=== PATIENT | female | born 1940 | race Caucasian/White ===

== ENCOUNTER 2021-04-25 09:08 | Outpatient (REF) | payer MEDICARE, SELFPAY ==
[2021-04-25 10:29] LABS: Hematocrit 41.3 % (37.0-47.0); Hemoglobin 13.4 g/dl (12.0-16.0); Mean Corpuscular HGB Conc 32.4 g/dl (31.0-35.0); Mean Corpuscular Hemoglobin 29.5 pg (27.0-33.0); Mean Corpuscular Volume 90.8 fL (80.0-98.0); Platelet Count 248 X10*3/uL (160-400); Red Blood Count 4.55 X10*6/uL (4.20-5.50); Red Cell Distribution Width 12.7 % (11.0-16.0)
[2021-04-25 11:04] LABS: Alanine Aminotransferase 20 U/L (0-31); Alkaline Phosphatase 89 U/L (39-117); Anion Gap 12 (12-20); Aspartate Amino Transferase 22 U/L (5-31); Bilirubin Direct 0.2 mg/dL (0.0-0.5); Bilirubin Total 0.6 mg/dL (0.0-1.0); Blood Urea Nitrogen 8 mg/dL (9-16); Calcium 9.1 mg/dL (8.4-10.2); Carbon Dioxide 28 mmol/L (22-29); Chloride 107 mmol/L (96-108); Cholesterol 186 mg/dL; Estimated Glomerular Filt Rate 57; Glucose Random 110 mg/dL (60-115); HDL Cholesterol 45 mg/dL; LDL Cholesterol Calculated 103 mg/dl; Potassium 4.4 mmol/L (3.3-5.1); Sodium 143 mmol/L (135-145); Total Protein 6.4 g/dL (6.5-8.0); Triglycerides 192 mg/dL
[2021-04-29 13:01] LABS: Vitamin D 25-OH, D2 <4 ng/mL; Vitamin D 25-OH, D3 45 ng/mL; Vitamin D 25-OH, Total 45 ng/mL (30-100)
== END 2021-04-25 09:09 | disposition home or self-care (01) ==
LOC: HO.LAB 09:08
PROVIDERS: PCP Internal Medicine; Visit Provider Internal Medicine
DX: F41.1 Generalized anxiety disorder (principal); E78.00 Pure hypercholesterolemia, unspecified
CPT/HCPCS: 36415; 80048; 80061; 80076; 82306; 84443; 85027

== ENCOUNTER 2021-09-29 10:58 | Outpatient (REF) | payer MEDICARE, SELFPAY ==
--- NOTE | ~2021-09-29 | US_ITS ---
EXAMINATION: US VENOUS ULTRASOUND WITH DOPPLER LOWER EXTREMITY, LEFT CLINICAL INFORMATION: Edema. COMPARISON: None TECHNIQUE: Ultrasound of the deep veins is performed from the hip to the calf with compression sonography and color and pulse Doppler assessment. Spectral analysis with color-flow imaging is performed. FINDINGS: There is normal venous compression and respiratory variation and augmented flow. The visualized common femoral vein, superficial femoral vein, profunda femoral vein, popliteal vein, and the trifurcation region shows no evidence of deep venous thrombosis. There is a small Diaz's cyst measuring 2.9 x 1.1 x 2.0 cm. The fluid tracks along the posterior calf questioning possible rupture. If the patient's symptoms persist, followup ultrasound in 5 days 7 days might be of value to exclude proximal propagation from a non-visualized calf vein. US/US venous duplex LE LT IMPRESSION: No DVT demonstrated in the left lower extremity. Diaz's cyst cyst with fluid tracking along the posterior calf questioning ruptured Diaz's cyst.
== END 2021-09-29 10:59 | disposition home or self-care (01) ==
LOC: HO.US 10:58
PROVIDERS: PCP Internal Medicine; Visit Provider Internal Medicine
DX: I82.402 Acute embolism and thrombosis of unspecified deep veins of left lower extremity (principal)
CPT/HCPCS: 93971

== ENCOUNTER 2022-08-08 09:13 | Outpatient (REF) | payer MEDICARE, SELFPAY ==
[2022-08-08 09:32] LABS: MANUAL DIFF FLAG NO
[2022-08-08 10:08] LABS: Basophils Percent Auto 0.5 % (0-2); Eosinophils Absolute Auto 0.1 X10*3/uL (0.0-0.4); Eosinophils Percent Auto 1.2 % (0-4); Hematocrit 40.2 % (37.0-47.0); Hemoglobin 13.1 g/dl (12.0-16.0); Imm Gran Abs Auto 0.02 X10*3/uL (0.00-0.03); Imm Gran Pct Auto 0.2 % (0.0-0.4); Lymphocytes Absolute Auto 2.4 X10*3/uL (1.2-4.9); Lymphocytes Percent Auto 29.7 % (20-40); Mean Corpuscular HGB Conc 32.6 g/dl (31.0-35.0); Mean Corpuscular Hemoglobin 29.3 pg (27.0-33.0); Mean Corpuscular Volume 89.9 fL (80.0-98.0); Mean Platelet Volume 10.1 fL (9.4-12.3); Monocytes Absolute Auto 0.7 X10*3/uL (0.1-1.2); Monocytes Percent Auto 9.1 % (2-11); Neutrophils Absolute Auto 4.8 x10*3/uL (2.0-8.3); Neutrophils Percent Auto 59.3 % (45-73); Platelet Count 239 X10*3/uL (160-400); Red Blood Count 4.47 X10*6/uL (4.20-5.50); Red Cell Distribution Width 12.7 % (11.0-16.0); White Blood Count 8.1 X10*3/uL (4.8-10.8)
[2022-08-08 10:50] LABS: Anion Gap 12 (12-20); Blood Urea Nitrogen 15 mg/dL (9-16); Calcium 9.3 mg/dL (8.4-10.2); Carbon Dioxide 30 mmol/L (22-29); Chloride 106 mmol/L (96-108); Estimated Glomerular Filt Rate 56; Glucose Random 105 mg/dL (60-115); Potassium 4.5 mmol/L (3.3-5.1); Sodium 143 mmol/L (135-145)
== END 2022-08-08 09:14 | disposition home or self-care (01) ==
LOC: HO.LAB 09:13
PROVIDERS: PCP Internal Medicine; Visit Provider Internal Medicine
DX: I35.0 Nonrheumatic aortic (valve) stenosis (principal)
CPT/HCPCS: 36415; 80048; 85025; 85610

== ENCOUNTER 2023-04-26 09:35 | Outpatient (AMB) | payer MEDICARE, SELFPAY ==
--- NOTE | 2023-04-26 09:53 | A.OFFPC_ITS ---
Vital Signs 04/26/23 09:58 Height 5 ft 2 in Weight 154 lb 2 oz BMI 28.2 BP 124/70 Blood Pressure Location Lt brachial Position Sitting Pulse 83 Pulse Source Pulse Oximeter Pulse Oximetry (%) 97 Oxygen Delivery Method Room Air Intake Visit Reasons: Memory loss Intake Note: Patient is here to follow up on memory loss and requesting for memory testing. 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 Accompanied by: Son Allergies penicillin V Allergy (Unknown, Verified 04/29/23 13:36) Unknown Penicillins Allergy (Unknown, Verified 04/29/23 13:36) Unknown Eggs/Apples/Oats Allergy (Unknown, Uncoded 04/29/23 13:36) stomach ache Medication List - Last Reconciled 04/29/23 by Jerman Mendoza MD aspirin (Adult Low Dose Aspirin) 81 mg PO DAILY Bystolic (nebivolol) 10 mg PO DAILY NS clonazepam (Klonopin) 0.5 mg PO Q8H levothyroxine 75 mcg PO DAILY nortriptyline 50 mg PO DAILY olmesartan-hydrochlorothiazide 40-12.5 mg (Benicar HCT) 1 tab PO DAILY simvastatin 40 mg PO DAILY Tobacco use date assessed: 04/26/23 Fall risk assessment: No Falls in past year Last assessed Fall Risk: 04/26/23 Dental Screening Dental Screen Date: 04/26/23 Did you have a dental visit in the last 12 months?: No Did you have a dental problem in the last 6 months where you did not have access to dental care?: No Was dental information given to patient?: No HPI Memory loss HPI Details 82-year-old female [facility]. She is accompanied by her son. Son is reporting patient is beginning to have short-term memory loss. He has to repeat the same thing again and again on phone conversations. Patient seems to forget who she had met in the morning etc. Patient is able to drive and has never lost her way home. 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 She is writing checks in an appropriate manner. Patient is dressing up and going to the groceries with no difficulty. She is able to cook independently. She is able to use the kitchen in the house independently. The son lives a few blocks away and he has noticed nothing amiss in the clinic in his of the house. Her personal hygiene is good. [facility] Medical History Generalized anxiety disorder Hypercholesterolemia Nonrheumatic aortic (valve) stenosis Surgical History History of colonoscopy Family History Mother No problems noted. Father No problems noted. Social History (Reviewed 04/26/23 @ 09:53 by Charlette Stephen [facility]) Housing: House Alcohol intake: never Patient Tobacco Use Status: Never used Tobacco e-Cigarette/Vaping Use: Never Used Second Hand Smoke Exposure: No service: No Current occupational status: retired Cognitive needs: No Hearing needs: No Vision needs: Yes (glasses) Questionnaire Thrive Questionnaire Date Thrive assessed: 10/26/22 SONIDO-7 AMB Questionnaire SONIDO-7 Date SONIDO - 7 assessed: 10/26/22 Source: Developed by Drs. Wes Lenz, Jennifer Adhikari, Hung Bhatt and colleagues, with an educational vicenta from [employer]. Physical exam (Primary Care) Vital Signs: Last Vital Signs Pulse 83 04/26/23 09:58 BP 124/70 04/26/23 09:58 Pulse Ox 97 04/26/23 09:58 Oxygen Delivery Method Room Air 04/26/23 09:58 \ Care Plan Goal for BP management: Blood pressure is in range. Continue current medications. BMI result Body Mass Index 28.2 Tobacco/Smoking Status: Tobacco use Status Tobacco use date assessed 04/26/23 04/26/23 10:23 Patient Tobacco Use Status Never used Tobacco 04/26/23 09:54 e-Cigarette/Vaping Use Never Used 04/26/23 09:54 Thrive Assessment: Date of Thrive Assessment Date Thrive assessed 10/26/22 04/26/23 09:54 Advance Care Planning discussion: Exists, not on file Date of discussion: 04/26/23 Forms completed: MOLST Time spent: 1-15 minutes, not on file Actual minutes spent: 5 Const General: cooperative and healthy appearing Nutritional Appearance: well nourished Orientation/consciousness: patient oriented x3 Limitations: no limitations HENMT Head: Yes normal to inspection Eyes General: appearance normal, both eyes and all related structures Neck Neck: Yes normal visual inspection Chest Chest palpation & inspection: normal palpation of entire chest wall Resp Effort & Inspection: normal respiratory effort Neuro General: patient oriented x3 Assessment and Plan Assessment & Plan (1) Dementia: Code(s): F03.90 - Unspecified dementia, unspecified severity, without behavioral disturbance, psychotic disturbance, mood disturbance, and anxiety Plan: Patient is beginning to show short-term memory loss which is an early sign of dementia. She could not do the recall test in the office. However she is functionally independent and able to do her activities independently. I encouraged them to continue current medications and keep her blood pressure in range. Coding Level of Care Code Est Pt Level 4 (67857) Diagnoses Dementia F03.90 Additional Codes Vital Signs *Quality* - Advance Care Planning discussion: Exists, not on file ([id number]) Vital Signs *Quality* - Time spent: 1-15 minutes, not on file ([id number])
[2023-04-26 09:58] VITALS: BP 124/70; PULSE 83; O2SAT 97; BMI 28.2
== END 2023-04-26 12:49 | disposition home or self-care (01) ==
PROVIDERS: PCP Internal Medicine; Visit Provider Internal Medicine
DX: F03.90 Unspecified dementia, unspecified severity, without behavioral disturbance, psychotic disturbance, mood disturbance, and anxiety (principal); Z00.00 Encounter for general adult medical examination without abnormal findings
CPT/HCPCS: 1124F; 99214

== ENCOUNTER 2023-08-22 13:27 | Outpatient (AMB) | payer MEDICARE, SELFPAY ==
[2023-08-22 13:31] VITALS: BP 140/76; PULSE 99; O2SAT 98; BMI 25.4
--- NOTE | 2023-08-22 13:31 | A.OFFPC_ITS ---
Vital Signs 08/22/23 13:31 Height 5 ft 2 in Weight 63.049 kg BMI 25.4 BP 140/76 H Blood Pressure Location Rt brachial Position Sitting Pulse 99 Pulse Source Pulse Oximeter Pulse Oximetry (%) 98 Oxygen Delivery Method Room Air Intake Visit Reasons: HDF Fl Kemi/Gallbladder removal Intake Note: Patient is here for hospital discharge follow up. 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 Allergies penicillin V Allergy (Unknown, Verified 08/22/23 13:36) Unknown Penicillins Allergy (Unknown, Verified 08/22/23 13:36) Unknown Eggs/Apples/Oats Allergy (Unknown, Uncoded 08/22/23 13:36) stomach ache Tobacco use date assessed: 08/22/23 Fall risk assessment: No Falls in past year Last assessed Fall Risk: 08/22/23 HPI HPI Comments History of Present Illness Details 83 year old female with history of sever e (hesitant to undergo TAVR but has been recommended), CAD, htn, hld with multiple recent admissions to [facility] presents to the office today with her daughter, Jo Ann with whom she resides, for hospital discharge follow up. Discharge medications reviewed and reconciled. Initially presented and admitted end of May with acute cholecystitis managed with cholecystectomy tube given intraoperative risk. Readmitted 06/28- with Cdiff and possible acute diverticulitis, and again 07/10 - w/ choledocholithiasis and possible pancreatitis s/p ERCP, course complicated by ongoing Cdiff and occlusive 5 cm thrombus of paired posterior tibial veins and ruptured mcknight cyst.?She was discharged at this time on Eliquis and continued on oral vancomycin therapy for C. difficile infection.?Most recently was admitted to [facility] from 07/23-07/25 due to active UGIB from duodenal ulcer. She was initially admitted to ICU for intubation for airway protection and EGD. Ulcer was cauterized and patient was successfully extubated. She required 3 units PRBC for stabilization of H/H. She did develop an episode of chest pain that resolved with nitro and cardiology was consulted. Echo on 07/24 showed hyperdynamic LV systolic function wtih EF 65-70% but no obvious wall m otion abnormality, likely type 2 NC per cardiology. Eliquis was held during admission with recommendation for repeat venous duplex in 2 weeks to assess for extension of DVt into popliteal circulation. She was discharged on BID PPI x 5 days and then advised to continue PPI x 6 weeks. She was evaluated by PT recommending STR. Pt has been discharged to [facility] and then back home with VNA in place for PT/OT. While in STR, venous duplex was repeated 08/08 showing new occlusive thrombus measuring >6cm in the rihgt peroneal vein and new/residual thrombus >5cm involving both the paired posterior tibial veins with a 5.4cm mcknight's cyst. She was restarted on eliquis at 2.5mg BID. She also continues on ppi BID per daughter's report. H/H stable. Pt's daughter reports ongoing cognitive decline with worsening mood disorder. She is not engaging in activities and cries often. Denies SI. Very anxious with worsening ST memory loss. Reports rapid progression with recent recurrent hospitalizations per her daughter. Currently taking nortriptyline which is also for chronic pain. Very poor appetite. [facility] Medical History Nonrheumatic aortic (valve) stenosis Generalized anxiety disorder Hypercholesterolemia Surgical History History of colonoscopy Family History Mother No problems noted. Father No problems noted. Social History Housing: House Alcohol intake: never Patient Tobacco Use Status: Never used Tobacco e-Cigarette/Vaping Use: Never Used Second Hand Smoke Exposure: No service: No Current occupational status: retired Cognitive needs: No Hearing needs: No Vision needs: Yes (glasses) Questionnaire Thrive Questionnaire Date Thrive assessed: 08/22/23 AUDIT C Alcohol Use Questionnaire (AUDIT-C) 1. How often do you have a drink containing alcohol?: Never Total Score: 0 SONIDO-7 AMB Questionnaire SONIDO-7 Date SONIDO - 7 assessed: 10/26/22 Source: Developed by Drs. Wes Lenz, Jennifer Adhikari, Hung Bhatt and colleagues, with an educational vicenta from [employer]. Review of Systems Const Details: General: No fevers, malaise, unintentional weight loss Cardiovascular: No chest pain, palpitations, or leg edema Respiratory: No shortness of breath, wheezing, cough GI: No abdominal pain, nausea, vomiting, diarrhea, constipation, melena, hematochezia : No dysuria, hematuria, increased urinary frequency, decreased urinary output MSK: No myalgia, back pain Neuro: No headaches, weakness, paresthesias Psych: +depression, +anxiety. No SI Skin: No rashes or lesions Physical exam (Primary Care) Vital Signs: Last Vital Signs Pulse 99 08/22/23 13:31 BP 140/76 H 08/22/23 13:31 Pulse Ox 98 08/22/23 13:31 Oxygen Delivery Method Room Air 08/22/23 13:31 BMI result Body Mass Index 25.4 Tobacco/Smoking Status: Tobacco use Status Tobacco use date assessed 08/22/23 08/22/23 13:34 Patient Tobacco Use Status Never used Tobacco 08/22/23 13:34 e-Cigarette/Vaping Use Never Used 08/22/23 13:34 Thrive Assessment: Date of Thrive Assessment Date Thrive assessed 08/22/23 08/22/23 13:34 Const Other: Constitutional - Awake and Alert, No apparent distress Eyes - PERRLA Cardiovascular - S1S2, RRR, V/ systolic ejection murmur, No edema Respiratory - Normal lung expansion, Normal respiratory effort, No respiratory distress, CTA bilaterally Gastrointestinal - NT / ND; +BS; No rebound or guarding Extremities - no calf tenderness bilaterally, no swelling Skin - Warm/Dry Neurological - Alert & oriented x3 Psychological - depressed mood, tearful, flat affect Results Reviewed Results Reviewed: cbc, bmp, venous duplex x2, echo, trop, cardiology consult, discharge summary, surgery office note Assessment and Plan Assessment & Plan (1) Dementia: Code(s): F03.90 - Unspecified dementia, unspecified severity, without behavioral disturbance, psychotic disturbance, mood disturbance, and anxiety Qualifiers: Dementia behavioral or psychological symptom: with mood disturbance Plan: progressively worsening with recurrent hospital admissions with worsening depression, anxious, anhedonia, and and failure to thrive. Recommended contacting insurance company to find psychiatric providers specializing in geriatric psychiatry. She is also referred to neurology for further evaluation and management. Will trial mirtazepine to help with mood and appetite, has lost nearly 12 pounds since last office visit. Advised to take 7.5mg nightly x 2 weeks, if no improvement increase to 2 tabs nightly. Educated on side effects of medications. Continue nortriptyline. Follow up with PCP soon. (2) UGIB (upper gastrointestinal bleed): Code(s): K92.2 - Gastrointestinal hemorrhage, unspecified Plan: Due to duodenal ulcer. H/H has remained stable since eliquis resumed. Advised to decrease pantoprazole to 40mg daily per [facility] GI recommendations. Pt family would prefer to follow with [facility]. Referral placed. (3) C. difficile colitis: Code(s): A04.72 - Enterocolitis due to Clostridium difficile, not specified as recurrent Plan: Resolved. Complete PO vanco. (4) Cholecystitis: Code(s): K81.9 - Cholecystitis, unspecified Plan: s/p cholecystectomy tube. Good output. NO abd pain, tolerating diet. Family would prefer to follow with [facility]. Consult placed. Continue following with [facility] surgery - not a candidate for cholecystectomy due to cardiac comorbidities. Orders: Orders Basic Metabolic Panel 08/22/23 E53.8 - Deficiency of other specified B group vitamins, I10 - Essential (primary) hypertension Magnesium 08/22/23 I10 - Essential (primary) hypertension, Z51.81 - Encounter for therapeutic drug level monitoring Vitamin B12 08/22/23 E53.8 - Deficiency of other specified B group vitamins, Z51.81 - Encounter for therapeutic drug level monitoring Referrals Neurology Referral F03.90 - Unspecified dementia, unspecified severity, without behavioral disturbance, psychotic disturbance, mood disturbance, and anxiety Gastroenterology Referral K92.2 - Gastrointestinal hemorrhage, unspecified Medications: New mirtazapine Take 1 tab nightly at bedtime. Can increase to 2 tabs nightly in 1-2 weeks if symptoms of depression persist 7.5 mg PO DAILY 60 tabs 0RF apixaban (Eliquis) 2.5 mg PO BID 180 tabs 0RF Changed From pantoprazole 40 mg PO BID 30 days 60 tabs 0RF To pantoprazole 40 mg PO DAILY 30 days 30 tabs 0RF Coding Level of Care Code Tele Est Pt Level 5 (26267) Diagnoses Dementia F03.90 Dementia behavioral or psychological symptom: with mood disturbance UGIB (upper gastrointestinal bleed) K92.2 C. difficile colitis A04.72 Cholecystitis K81.9 Time Spent (min) 50 Comment time spent reviewing above, with pt/dtr, documentation time
== END 2023-08-22 14:19 | disposition home or self-care (01) ==
PROVIDERS: PCP Internal Medicine; Visit Provider Physician Assistant
DX: K81.9 Cholecystitis, unspecified (principal); K92.2 Gastrointestinal hemorrhage, unspecified; F03.90 Unspecified dementia, unspecified severity, without behavioral disturbance, psychotic disturbance, mood disturbance, and anxiety; A04.72 Enterocolitis due to Clostridium difficile, not specified as recurrent
CPT/HCPCS: 99215

== ENCOUNTER 2023-09-06 10:13 | Inpatient (IN) | payer MEDICARE, SELFPAY ==
--- NOTE | ~2023-09-06 | CT_ITS ---
EXAMINATION: CT ABDOMEN AND PELVIS WITH CONTRAST CLINICAL INFORMATION: Diarrhea and abdominal pain. COMPARISON: None available. TECHNIQUE: Multidetector volumetric images were obtained from the superior aspect of the liver through the pubic symphysis following administration 85 mL of Omnipaque 350 intravenous contrast. Sagittal and coronal reformatted images were obtained on the technologist's workstation. Oral contrast: No This CT examination was performed using dose optimization techniques as appropriate, variously including the following: *Automated exposure control *Adjustment of mA and/or kV according to patient size (this includes techniques or standardized protocols for targeted exams where dose is matched to indication/reason for exam; i.e. extremities or head) *Use of iterative reconstruction technique DLP: 426 mGy-cm FINDINGS: LUNG BASES: There is bibasilar atelectasis. Heart size is normal. There is mitral annular dense calcification. LIVER, GALLBLADDER, AND BILIARY TREE: The liver is normal in size, shape, and attenuation. No focal hepatic lesion or biliary ductal dilatation is present. There is a percutaneous placed cholecystostomy tube in a dilated gallbladder. There is punctate gas visualized in the intrahepatic fissure. PANCREAS: Unremarkable. SPLEEN: Unremarkable. ADRENAL GLANDS: Unremarkable. KIDNEYS AND URETERS: The kidneys are normal in size with a lobulated shape with scarring upper pole left kidney. There are multiple left renal cyst. The largest partially exophytic lower pole measures 3.8 cm wide. There is rim shaped 1.0 cm calcification adjacent to cortical scar in upper pole left kidney. An exophytic cyst upper pole measures 1.2 cm. There are tiny cysts in the upper pole right kidney. No perinephric stranding. No hydronephrosis or obstructive calculi. BLADDER: Unremarkable. GASTROINTESTINAL TRACT: There is a scattered stool, gas and diffuse mural thickening and pericolic fat stranding involving the entire descending, transverse and ascending colon consistent with diffuse colitis likely inflammatory or infectious etiology. There is no pericolic abscess or free air. The small bowel loops are normal caliber. Appendix is not visualized. The stomach is nondistended and appears unremarkable. ABDOMINAL WALL: A small hiatal hernia is noted. LYMPH NODES: Normal. VASCULAR: Unremarkable. PELVIC VISCERA: The uterus is anteverted and appears unremarkable. There is no free air or free fluid. No abnormal pelvic or inguinal lymph nodes seen. OSSEOUS STRUCTURES: Mild degenerative disc changes L2 3-4 disc level is noted. No aggressive lytic or sclerotic process. CT/CT abdomen pelvis w IV con IMPRESSION: 1. Diffuse colitis involving the entire colon likely inflammatory or infectious etiology. There is no pericolic abscess or free air. 2. There is a percutaneous placed cholecystostomy tube in a dilated gallbladder. There is punctate gas in the intrahepatic fissure. 3. Small hiatal hernia. Fleischner guidelines were followed.
[2023-09-06 10:36] VITALS: BP 145/72; PULSE 128; RESP 16; TEMP 36.4; O2SAT 98; BMI 25.0
--- NOTE | 2023-09-06 10:55 | PC.NURSE ---
corn grinder made aware of pt's HR 120's. IV established, labs drawn/sent. Awaiting bed in ED.
[2023-09-06 11:00] LABS: MANUAL DIFF FLAG NO
[2023-09-06] MEDS: 0.9 % Sodium Chloride 1,000 ML 999 ML IV (11:00)
[2023-09-06 11:08] LABS: Basophils Absolute Auto 0.1 X10*3/uL (0.0-0.2); Basophils Percent Auto 0.4 % (0-2); Eosinophils Absolute Auto 0.2 X10*3/uL (0.0-0.4); Eosinophils Percent Auto 0.8 % (0-4); Hematocrit 41.6 % (37.0-47.0); Hemoglobin 13.5 g/dl (12.0-16.0); Imm Gran Abs Auto 0.12 X10*3/uL (0.00-0.03); Imm Gran Pct Auto 0.6 % (0.0-0.4); Lymphocytes Absolute Auto 1.8 X10*3/uL (1.2-4.9); Lymphocytes Percent Auto 8.5 % (20-40); Mean Corpuscular HGB Conc 32.5 g/dl (31.0-35.0); Mean Corpuscular Hemoglobin 27.8 pg (27.0-33.0); Mean Corpuscular Volume 85.6 fL (80.0-98.0); Mean Platelet Volume 9.9 fL (9.4-12.3); Monocytes Absolute Auto 1.3 X10*3/uL (0.1-1.2); Monocytes Percent Auto 6.4 % (2-11); Neutrophils Absolute Auto 17.1 x10*3/uL (2.0-8.3); Neutrophils Percent Auto 83.3 % (45-73); Platelet Count 283 X10*3/uL (160-400); Red Blood Count 4.86 X10*6/uL (4.20-5.50); Red Cell Distribution Width 14.7 % (11.0-16.0); White Blood Count 20.6 X10*3/uL (4.8-10.8)
[2023-09-06 11:17] LABS: Lactic Acid 1.7 mmol/L (0.5-2.0)
[2023-09-06 11:21] LABS: Alanine Aminotransferase 14 U/L (0-31); Albumin Level 3.8 g/dL (3.5-5.0); Alkaline Phosphatase 104 U/L (39-117); Anion Gap 16 (12-20); Aspartate Amino Transferase 17 U/L (5-31); Bilirubin Direct 0.4 mg/dL (0.0-0.5); Bilirubin Total 1.2 mg/dL (0.0-1.0); Blood Urea Nitrogen 8 mg/dL (9-16); Calcium 9.4 mg/dL (8.4-10.2); Carbon Dioxide 24 mmol/L (22-29); Chloride 102 mmol/L (96-108); Creatinine Clr Calc Pharmacy 49.4; Estimated Glomerular Filt Rate > 60; Glucose Random 144 mg/dL (60-115); Lipase 8 U/L (8-78); Sodium 139 mmol/L (135-145); Total Protein 7.2 g/dL (6.5-8.0)
--- NOTE | 2023-09-06 11:37 | ED_ITS ---
HPI - Nausea/Vomiting/Diarrhea General Chief complaint: Nausea/Vomiting/Diarrhea Stated complaint: diarrhea Time Seen by Provider: 09/06/23 11:25 Source: patient, family and old records reviewed Mode of arrival: ambulatory Limitations: other (dementia) History of Present Illness HPI Narrative: 83 yo female with PMH of mild dementia, HTN, anxiety, HLD, severe aortic stenosis, just had prolonged intermittent stays at [facility] in May to July due to choledocholithiasis/ pancreatitis and acute cholecystitis s/p ERCP and biliary drain. June found to have DVT on eliquis then treated for c diff with oral vancomycin. Presented in July for UGIB requiring 3 units PRBC found to have duodenal ulcer that was cauterized. Had type 2 NSTEMI. At this time the patient presents here with acute onset diffuse diarrhea and incontinence that started last night with some intermittent abdominal cramps. No fevers, no vomiting. Feels just like when she had c. diff. Was seen by urgent care on 08/12 and they started her on clindamycin for one week due to tooth infection... her tooth infection has resolved. MD elicited complaint: diarrhea and abdominal pain Pertinent past history: other (c diff colitis) Onset (ago): day(s) (last night) Associated nausea: No Associated abdominal pain: Yes Location of pain: diffuse Pain consistency: intermittent Severity: mild Quality: cramping Exacerbating factors: eating Relieving factors: none Context: other (hx of c diff, clindamycin starting 08/12) Associated symptoms: loss of appetite, malaise and weakness Related Data Home Medications Medication Instructions Recorded Confirmed aspirin 81 mg tablet,delayed 81 mg PO DAILY 04/28/21 11/08/22 release (Adult Low Dose Aspirin) olmesartan 40 1 tab PO DAILY 10/20/21 11/08/22 mg-hydrochlorothiazide 12.5 mg tablet (Benicar HCT) Previous Rx's Medication Instructions Recorded clonazepam 0.5 mg tablet (Klonopin) 0.5 mg PO Q8H #90 tabs 09/08/22 simvastatin 40 mg tablet 40 mg PO DAILY #90 tabs 05/24/23 levothyroxine 75 mcg tablet 75 mcg PO DAILY #90 tabs 06/02/23 nortriptyline 50 mg capsule 50 mg PO DAILY #90 caps 07/10/23 atorvastatin 80 mg tablet 80 mg PO BEDTIME #30 tabs 08/15/23 metoprolol succinate 50 mg 50 mg PO DAILY #30 tabs 08/15/23 tablet,extended release 24 hr apixaban 2.5 mg tablet (Eliquis) 2.5 mg PO BID #180 tabs 08/22/23 mirtazapine 7.5 mg tablet 7.5 mg PO DAILY #60 tabs 08/22/23 pantoprazole 40 mg tablet,delayed 40 mg PO DAILY 30 days #30 tabs 08/29/23 release Allergies Allergy/AdvReac Type Severity Reaction Status Date / Time penicillin V Allergy Unknown Unknown Verified 09/06/23 10:35 Penicillins Allergy Unknown Unknown Verified 09/06/23 10:35 Eggs/Apples/Oats Allergy Unknown stomach Uncoded 08/22/23 13:36 ache Review of Systems 2 Review of Systems: Constitutional : No Weight loss, No Fever, No Chills ENT/Mouth : No sore throat, No Rhinorrhea Eyes: No Swelling, No Redness Cardiovascular : No Chest Pain, No SOB, NoEdema Respiratory : No Cough, No Sputum, No Wheezing Gastrointestinal : no Nausea, no Vomiting, positive Diarrhea, positive abdominal Pain, No Hematochezia, No Melena Genitourinary : No Dysuria, No Urinary Frequency, No Hematuria, No Urgency Musculoskeletal : No joint pain, No Myalgias, No Joint Swelling Skin : No Skin Lesions, No rash Neuro : No Weakness, No Numbness, No Dizziness, No Headache Psych : No Anxiety/Panic, No Depression Heme/Lymph: No Bruising, No Lymphadenopathy Endocrine : No Polyuria, No Polydipsia All other systems reviewed and are negative. Gastrointestinal: Gastrointestinal: Denies nausea PMFSH Past Medical History Attestation statement: The following information was validated with the patient. Source: old records reviewed Medical History Nonrheumatic aortic (valve) stenosis Generalized anxiety disorder Hypercholesterolemia Surgical History History of colonoscopy Family History Family History Mother No problems noted. Father No problems noted. Social History Social History Housing: House Alcohol intake: never Patient Tobacco Use Status: Never used Tobacco Smoked in Last 30 Days: No e-Cigarette/Vaping Use: Never Used Second Hand Smoke Exposure: No Use of substances other than those prescribed or required for medical reasons: No Advance Directives: No Advance Directives Information Provided: Yes service: No Current occupational status: retired Cognitive needs: No Hearing needs: No Vision needs: Yes (glasses) Physical Exam 2 Vital Signs: Vital Signs: Last Vital Signs Temp 99.6 F 09/06/23 12:00 Pulse 112 H 09/06/23 12:00 Resp 18 09/06/23 12:00 BP 144/70 H 09/06/23 12:00 Pulse Ox 96 09/06/23 12:00 O2 Del Method Room Air 09/06/23 12:00 BMI result Body Mass Index 25.0 Appearance: Alert. confused but able to answer some questions about her history. No acute distress. Eyes: Pupils equal, round and reactive to light. ENT: Pharynx normal. Neck: Normal inspection. Neck supple. CVS: Normal heart rate and rhythm. Pulses normal. Respiratory: No respiratory distress. Breath sounds normal. Abdomen: Soft and nontender mild distention drain noted and appearance of bile but no purulence Skin: Skin warm and dry. Normal skin color. Normal skin turgor. Extremities: No lower extremity edema. No calf ttp Neuro: confused No motor deficit. No sensory deficit. Medications Administered Discontinued Medications Generic Name Dose Route Start Last Admin Trade Name Qamarq PRN Reason Stop Dose Admin Acetaminophen 650 mg 09/06/23 12:56 09/06/23 13:07 Acetaminophen 325 Mg Tablet PO 09/06/23 12:57 Not Given ONCE ONE Fidaxomicin 200 mg 09/06/23 11:27 09/06/23 12:30 Fidaxomicin 200 Mg Tablet PO 09/06/23 11:28 200 mg ONCE ONE Administration Sodium Chloride 1,000 mls @ 999 mls/hr 09/06/23 11:00 09/06/23 12:31 Ns IV 09/06/23 12:00 Infused .Q1H1M ORTIZ Infusion Potassium Chloride 10 meq in 100 mls @ 100 mls/hr 09/06/23 11:30 09/06/23 15:01 Potassium Chloride/H20 IV 09/06/23 15:29 Not Given Q1H ORTIZ Iohexol 85 ml 09/06/23 14:04 09/06/23 14:05 Iohexol 350 Mg/Ml 75 Ml Infus..Btl IV 09/06/23 14:05 85 ml ONCE ONE Administration Potassium Chloride 40 meq 09/06/23 14:59 09/06/23 15:07 Potassium Chloride Packet 20 Meq Packet PO 09/06/23 15:00 40 meq ONCE ONE Administration Medical Decision Making Medical Decision Making MDM Narrative: 83 yo female with PMH of mild dementia, HTN, anxiety, HLD, severe aortic stenosis, recent UGIB requiring cauterization of duodenal ulcer along with 3 units PRBC, c diff colitis in June, DVT on low dose eliquis, NSTEMI due to demand here with c/o abdominal cramps and diffuse diarrhea with recent clindamycin use for dental issue. At this time given WBC count, repeat presumed c diff, hypokalemia will start on fluids and fidaxomicin. CT scan ordered to check for ileus and megacolon. Likely admit Differential Diagnosis Differential Diagnoses: The differential diagnosis associated with the presentation includes colitis Admission/Observation Consideration of admission/observation: Escalation of care including admission/observation considered plan to admit given labs and pancolitis Consult Healthcare Provider Management of the patient was discussed with: Hospitalist (will admit) Lab Data [facility] Lab Attestation statement: I reviewed the patient's lab results. 09/06/23 10:52 09/06/23 10:52 Labs: Lab Results 09/06/23 Range/Units 10:52 WBC 20.6 H (4.8-10.8) X10*3/uL RBC 4.86 D (4.20-5.50) X10*6/uL Hgb 13.5 D (12.0-16.0) g/dl Hct 41.6 D (37.0-47.0) % MCV 85.6 (80.0-98.0) fL MCH 27.8 (27.0-33.0) pg MCHC 32.5 (31.0-35.0) g/dl RDW 14.7 (11.0-16.0) % Plt Count 283 (160-400) X10*3/uL MPV 9.9 (9.4-12.3) fL Immature Gran % (Auto) 0.6 H (0.0-0.4) % Neut % (Auto) 83.3 H (45-73) % Lymph % (Auto) 8.5 L (20-40) % [place] % (Auto) 6.4 (2-11) % Eos % (Auto) 0.8 (0-4) % Baso % (Auto) 0.4 (0-2) % Lymph # (Auto) 1.8 (1.2-4.9) X10*3/uL [place] # (Auto) 1.3 H (0.1-1.2) X10*3/uL Eos # (Auto) 0.2 (0.0-0.4) X10*3/uL Baso # (Auto) 0.1 (0.0-0.2) X10*3/uL Abs Immat Gran (auto) 0.12 H (0.00-0.03) X10*3/uL Absolute Neuts (auto) 17.1 H (2.0-8.3) x10*3/uL Absolute Nucleated RBC 0.000 (0.0-0.012) X10*3/uL Nucleated RBC % (auto) 0.0 (0.0-0.2) /100WBC Sodium 139 (135-145) mmol/L Potassium 3.0 L (3.3-5.1) mmol/L Chloride 102 (96-108) mmol/L Carbon Dioxide 24 (22-29) mmol/L Anion Gap 16 (12-20) BUN 8 L (9-16) mg/dL Creatinine 0.76 (0.5-1.4) mg/dL Estim Creat Clear Calc 49.4 Estimated GFR > 60 Random Glucose 144 H (60-115) mg/dL Lactic Acid 1.7 (0.5-2.0) mmol/L Calcium 9.4 (8.4-10.2) mg/dL Total Bilirubin 1.2 H (0.0-1.0) mg/dL Direct Bilirubin 0.4 (0.0-0.5) mg/dL AST 17 (5-31) U/L ALT 14 (0-31) U/L Alkaline Phosphatase 104 (39-117) U/L Total Protein 7.2 (6.5-8.0) g/dL Albumin 3.8 (3.5-5.0) g/dL Lipase 8 (8-78) U/L Independent Interpretation I performed an independent interpretation of an: CT Scan (pancolitis) Radiology Impression Discussion of test interpretation with radiology: I have reviewed the radiologist's reading. Independent Historian Clinical information obtained from an independent historian. History obtained from or confirmed by: Other (family) External Record Review External record reviewed: Office record and Outpatient record Discharge Plan Discharge Clinical Impression: Acute hypokalemia, Pancolitis Elevated WBC count Qualifiers: Leukocytosis type: unspecified Qualified Code(s): D72.829 - Elevated white blood cell count, unspecified Patient Disposition: Admitted As Inpatient Prescriptions: No Action simvastatin 40 mg tablet 40 mg PO DAILY Qty: 90 1RF levothyroxine 75 mcg tablet 75 mcg PO DAILY Qty: 90 1RF nortriptyline 50 mg capsule 50 mg PO DAILY Qty: 90 1RF metoprolol succinate 50 mg tablet extended release 24 hr 50 mg PO DAILY Qty: 30 0RF atorvastatin 80 mg tablet 80 mg PO BEDTIME Qty: 30 0RF pantoprazole 40 mg tablet,delayed release (DR/EC) 40 mg PO DAILY 30 Days Qty: 30 0RF aspirin [Adult Low Dose Aspirin] 81 mg tablet,delayed release (DR/EC) 81 mg PO DAILY clonazepam [Klonopin] 0.5 mg tablet 0.5 mg PO Q8H Qty: 90 0RF olmesartan-hydrochlorothiazide [Benicar HCT] 40-12.5 mg tablet 1 tab PO DAILY mirtazapine 7.5 mg tablet 7.5 mg PO DAILY Qty: 60 0RF Rx Instructions: Take 1 tab nightly at bedtime. Can increase to 2 tabs nightly in 1-2 weeks if symptoms of depression persist Eliquis 2.5 mg tablet 2.5 mg PO BID Qty: 180 0RF
[2023-09-06 12:00] VITALS: BP 144/70; PULSE 112; RESP 18; TEMP 37.6; O2SAT 96
[2023-09-06] MEDS: Potassium Chloride/H20 10 MEQ/100 ML PIGGYBACK 100 MEQ IV (12:07)
[2023-09-06] MEDS: Fidaxomicin 200 MG TABLET PO (12:30)
--- NOTE | 2023-09-06 13:33 | PC.NURSE ---
Pt to CT; Disconnected from IV K+ infusion.
[2023-09-06] MEDS: iohexoL 350 MG/ML 75 ML INFUS..BTL 85 ML IV (14:05)
[2023-09-06] MEDS: Potassium Chloride Packet 20 MEQ PACKET 40 MEQ PO (15:07)
--- NOTE | 2023-09-06 16:42 | P.HPHOSP_ITS ---
History of Present Illness Date of Service: 09/06/23 Chief Complaint: Abdominal pain, diarrhea An 83 years old lady with PMH of dementia, HTN, anxiety, severe , biliary drain for hx cholecystitis, Hx C.diff DVT on eliquis who presents to the hospital with abdominal pain and diarrhea. The patient reports being on oral Clindamycin for teeth infection earlier this week before she start feeling pain and nasuea with associated diarrhea and decrease PO intake. No chest pain, palpitations, SOB, vomiting or urinary symptoms with abdominal cramps. in ED CT Scan showed evidence of Pancolitis. She was started on Flagyl IV and Vanco PO and admitted. She had UGIB on Jul while on blood thinner requiring blood transfusion and EGD. Admitted for further evaluation and management. Review of Systems 2 Review of Systems: No fever, chills or weakness No chest pain, palpitation No shortness of breath or coughing reporting abdominal pain, nausea and diarrhea but no vomiting No urinary symptoms No any rash or wounds PMFSH Medical History Nonrheumatic aortic (valve) stenosis Generalized anxiety disorder Hypercholesterolemia Family History Mother No problems noted. Father No problems noted. Surgical History History of colonoscopy Social History Housing: House Alcohol intake: never Patient Tobacco Use Status: Never used Tobacco Smoked in Last 30 Days: No e-Cigarette/Vaping Use: Never Used Second Hand Smoke Exposure: No Use of substances other than those prescribed or required for medical reasons: No Advance Directives: No Advance Directives Information Provided: Yes service: No Current occupational status: retired Cognitive needs: No Hearing needs: No Vision needs: Yes (glasses) Meds Allergies Allergy/AdvReac Type Severity Reaction Status Date / Time penicillin V Allergy Unknown Unknown Verified 09/06/23 10:35 Penicillins Allergy Unknown Unknown Verified 09/06/23 10:35 Eggs/Apples/Oats Allergy Unknown stomach Uncoded 08/22/23 13:36 ache Active Medications: Current Medications Acetaminophen (Acetaminophen 325 Mg Tablet) 650 mg PO Q6H PRN PRN Reason: Pain, Mild (Pain Scale 1-3) Sodium Chloride (Ns) 1,000 mls @ 100 mls/hr IVCONT .Q10H ORTIZ Metronidazole (Flagyl) 500 mg in 100 mls @ 100 mls/hr IV ONCE ONE Stop: 09/06/23 16:53 Metronidazole (Flagyl) 500 mg in 100 mls @ 100 mls/hr IV Q8H ORTIZ Lactated Ringer's (Lr) 1,000 mls @ 80 mls/hr IVCONT .[id number] [facility] Morphine Sulfate (Morphine Sulfate 4 Mg/Ml Cartridge) 1 mg IVPUSH Q4H PRN; Protocol PRN Reason: Pain, Severe (Pain Scale 7-10) Ondansetron HCl (Ondansetron Hcl 4 Mg/2 Ml Vial) 4 mg IVPUSH Q8H PRN PRN Reason: Nausea and Vomiting Sodium Chloride (0.9 % Sodium Chloride Flush 3 Ml Syringe) 3 ml IVFLUSH QSHIFT [facility] Vancomycin HCl (Vancomycin Hcl 125 Mg Capsule) 250 mg PO Q6H [facility] Home Medications Medication Instructions Recorded Confirmed Last Taken Type cholecalciferol (vitamin D3) 125 125 mcg PO DAILY 09/06/23 09/06/23 09/06/23 History mcg (5,000 unit) capsule clonazepam 0.5 mg tablet (Klonopin) 0.5 mg PO Q8H PRN Anxiety 09/06/23 09/06/23 09/06/23 History mirtazapine 15 mg tablet 15 mg PO DAILY 09/06/23 09/06/23 09/06/23 History multivitamin 1 tab PO DAILY 09/06/23 09/06/23 Unknown History nortriptyline 50 mg capsule 50 mg PO BEDTIME 09/06/23 09/06/23 09/06/23 History Physical Exam 2 Vital Signs and Narrative: Vital Signs: Last Vital Signs Temp 99.6 F 09/06/23 12:00 Pulse 112 H 09/06/23 12:00 Resp 18 09/06/23 12:00 BP 144/70 H 09/06/23 12:00 Pulse Ox 96 09/06/23 12:00 O2 Del Method Room Air 09/06/23 12:00 BMI result Body Mass Index 25.0 Const: Other: Constitutional : Awake, interactive, not in distress Neck : Normal inspection, Supple Cardiovascular : RRR, no JVP, no lower extremity edema Respiratory : good bilateral air entry, no crackles, wheezes or rhonchi Gastrointestinal: soft, lax, Normal bowel sounds, mild generalized tenderness Skin : Warm, Dry Neurological : Alert & oriented x3, No focal deficit Results Labs 09/06/23 10:52 09/06/23 10:52 Labs: Laboratory Results - last 24 hr 09/06/23 10:52 MCV 85.6 MCH 27.8 MCHC 32.5 RDW 14.7 Plt Count 283 MPV 9.9 Immature Gran % (Auto) 0.6 H Neut % (Auto) 83.3 H Lymph % (Auto) 8.5 L [place] % (Auto) 6.4 Eos % (Auto) 0.8 Baso % (Auto) 0.4 Lymph # (Auto) 1.8 [place] # (Auto) 1.3 H Eos # (Auto) 0.2 Baso # (Auto) 0.1 Abs Immat Gran (auto) 0.12 H Absolute Neuts (auto) 17.1 H Absolute Nucleated RBC 0.000 Nucleated RBC % (auto) 0.0 Anion Gap 16 Estim Creat Clear Calc 49.4 Estimated GFR > 60 Random Glucose 144 H Lactic Acid 1.7 Calcium 9.4 Total Bilirubin 1.2 H Direct Bilirubin 0.4 AST 17 ALT 14 Alkaline Phosphatase 104 Total Protein 7.2 Albumin 3.8 Lipase 8 Imaging Radiologist's Impressions: Impressions Abdomen/Pelvis CT 09/06/23 14:36 IMPRESSION: 1. Diffuse colitis involving the entire colon likely inflammatory or infectious etiology. There is no pericolic abscess or free air. 2. There is a percutaneous placed cholecystostomy tube in a dilated gallbladder. There is punctate gas in the intrahepatic fissure. 3. Small hiatal hernia. Fleischner guidelines were followed. Assessment and Plan (1) Pancolitis: Status: Acute (2) Acute hypokalemia: Status: Acute (3) Sepsis: Status: Acute Plan An 83 years old lady with PMH of dementia, HTN, anxiety, severe , biliary drain for hx cholecystitis, Hx C.diff DVT on eliquis who presents to the hospital with abdominal pain and diarrhea. 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 Quality Stroke Does the patient have a stroke diagnosis?: No VTE Prior VTE?: No VTE Risk Level:: Medical - moderate - high VTE Device Contraindication: Treatment Not Indicated VTE Drug Contraindication: N/A - Med Ordered
[2023-09-06] MEDS: Lactated Ringers 1,000 ML 80 ML IVCONT (16:52)
[2023-09-06] MEDS: metroNIDAZOLE/NS 500 MG/100 ML PIGGYBACK 100 MG IV (16:52)
--- NOTE | 2023-09-06 17:09 | PC.NURSE ---
Pt experiencing discomfort with L AC peripheral IV, line removed - 20g placed in L hand. IVABX & IVMF running. Pt currently appears in NAD, VSS. RR even and unlabored. Family member at bedside. Pt informed that they will be admitted, very upset that she cannot eat. Will contact IP provider.
--- NOTE | 2023-09-06 17:09 | PHA.MEDREC ---
Pharmacy Consult ? Medication Reconciliation Pharmacy has completed the medication reconciliation. Confirmed medications with patients family (written list) and through claim history.
[2023-09-06 17:13] VITALS: BP 149/77; PULSE 115; RESP 20; TEMP 37; O2SAT 94
[2023-09-06] MEDS: vancomycin HCL 125 MG CAPSULE 250 MG PO ×2 (17:22→22:16)
[2023-09-06] MEDS: Metoprolol Succinate ER 50 MG TAB.ER.24H PO (18:00)
[2023-09-06 19:07] VITALS: BP 123/64; PULSE 98; RESP 18; TEMP 37.2; O2SAT 96
[2023-09-06 20:22] VITALS: BP 135/69; PULSE 108; RESP 20; TEMP 37.6; O2SAT 94
[2023-09-06 20:28] VITALS: BMI 25.0
[2023-09-06] MEDS: Nortriptyline HCl 25 MG CAPSULE 50 MG PO (20:52)
[2023-09-06] MEDS: Apixaban 2.5 MG TABLET PO (20:52)
[2023-09-06] MEDS: Atorvastatin Calcium 80 MG TABLET PO (20:52)
[2023-09-06] MEDS: clonazePAM 0.5 MG TABLET PO (20:52)
[2023-09-07 01:08] LABS: CDiff Gene PCR POSITIVE (Negative)
[2023-09-07] MEDS: metroNIDAZOLE/NS 500 MG/100 ML PIGGYBACK 100 MG IV ×3 (01:19→17:33)
[2023-09-07 01:47] LABS: CDiff Toxin Positive (Negative)
[2023-09-07 01:48] LABS: CDIFF Internal ctrl Dots and bkg OK (V)
[2023-09-07 03:32] VITALS: BP 131/63; PULSE 107; RESP 18; TEMP 37.3; O2SAT 93
[2023-09-07] MEDS: vancomycin HCL 125 MG CAPSULE 250 MG PO (05:10)
[2023-09-07] MEDS: Omeprazole 20 MG CAPSULE.DR PO (05:10)
[2023-09-07] MEDS: Levothyroxine Sodium 75 MCG TABLET PO (05:10)
[2023-09-07] MEDS: Lactated Ringers 1,000 ML 80 ML IVCONT ×2 (05:10→17:33)
[2023-09-07 06:02] LABS: Hematocrit 33.5 % (37.0-47.0); Hemoglobin 10.8 g/dl (12.0-16.0); Mean Corpuscular HGB Conc 32.2 g/dl (31.0-35.0); Mean Corpuscular Hemoglobin 27.7 pg (27.0-33.0); Mean Corpuscular Volume 85.9 fL (80.0-98.0); Mean Platelet Volume 10.2 fL (9.4-12.3); Platelet Count 234 X10*3/uL (160-400); Red Cell Distribution Width 14.9 % (11.0-16.0); White Blood Count 19.2 X10*3/uL (4.8-10.8)
[2023-09-07 06:19] LABS: Anion Gap 13 (12-20); Blood Urea Nitrogen 5 mg/dL (9-16); Calcium 8.1 mg/dL (8.4-10.2); Carbon Dioxide 22 mmol/L (22-29); Chloride 105 mmol/L (96-108); Creatinine Clr Calc Pharmacy 57.7; Estimated Glomerular Filt Rate > 60; Glucose Random 107 mg/dL (60-115); Potassium 3.2 mmol/L (3.3-5.1); Sodium 137 mmol/L (135-145)
--- NOTE | 2023-09-07 07:27 | P.CNGI_ITS ---
History of Present Illness Data of Consult Service Date: 09/07/23 Requesting physician: Magdiel Clemente Primary Care Provider: Jerman Mendoza MD [facility] Reason for consult: Ardon colitis, history of C diff infection 83 YF with dementia, HTN, anxiety, severe , biliary drain for hx cholecystitis, Hx C.diff, DVT on eliquis seen at [facility] on 09/06/23 with abdominal pain and diarrhea. The patient reported being on oral Clindamycin for teeth infection earlier this week and noted abdominal pain and nausea, diarrhea and decreased PO intake. Pt denied chest pain, palpitations, SOB, vomiting or urinary symptoms with abdominal cramps. Pt was started on Flagyl IV and Vanco PO and admitted for further evaluation and management. . Stool test was positive for C Diff Toxin A & B and Toxin B gene indicating recurrent C Diff infection 09/06/[address] SCAN SHOWED: 1. Diffuse colitis involving the entire colon likely inflammatory or infectious etiology. There is no pericolic abscess or free air. 2. There is a percutaneous placed cholecystostomy tube in a dilated gallbladder. There is punctate gas in the intrahepatic fissure. 3. Small hiatal hernia. PAST GI HISTORY BY REVIEW OF MEDICAL RECORDS: She had UGIB on Jul while on blood thinner requiring blood transfusion and EGD. Review of Systems 2 Review of Systems: No fever, chills or weakness No chest pain, palpitation No shortness of breath or coughing reporting abdominal pain, nausea and diarrhea but no vomiting No urinary symptoms No any rash or wounds PMFSH Past Medical History Medical History (Updated 11/02/23 @ 18:08 by Christian Castañeda MD) C. difficile colitis Pancolitis MDD (major depressive disorder) Cholecystitis UGIB (upper gastrointestinal bleed) Dementia Nonrheumatic aortic (valve) stenosis Generalized anxiety disorder Hypercholesterolemia Family History Family History Mother No problems noted. Father No problems noted. Surgical History Surgical History History of colonoscopy Social History Social History Household Members: None Housing: House Do you presently have visiting nurse or other home services: No Alcohol intake: never Patient Tobacco Use Status: Never used Tobacco e-Cigarette/Vaping Use: Never Used Second Hand Smoke Exposure: No service: No Current occupational status: retired Cognitive needs: No Hearing needs: No Vision needs: Yes (glasses) Meds Allergies Allergy/AdvReac Type Severity Reaction Status Date / Time penicillin V Allergy Unknown Unknown Verified 10/09/23 11:06 Penicillins Allergy Unknown Unknown Verified 10/09/23 11:06 Eggs/Apples/Oats Allergy Unknown stomach Uncoded 10/09/23 11:06 ache Active Medications: Current Medications Acetaminophen (Acetaminophen 325 Mg Tablet) 650 mg PO Q6H PRN PRN Reason: Pain, Mild (Pain Scale 1-3) Apixaban (Apixaban 2.5 Mg Tablet) 2.5 mg PO BID [facility] Last Admin: 09/06/23 20:52 Dose: 2.5 mg Atorvastatin Calcium (Atorvastatin Calcium 80 Mg Tablet) 80 mg PO BEDTIME [facility] Last Admin: 09/06/23 20:52 Dose: 80 mg Clonazepam (Clonazepam 0.5 Mg Tablet) 0.5 mg PO Q8H PRN PRN Reason: Anxiety Last Admin: 09/06/23 20:52 Dose: 0.5 mg Metronidazole (Flagyl) 500 mg in 100 mls @ 100 mls/hr IV Q8H [facility] Last Infusion: 09/07/23 03:29 Dose: Infused Lactated Ringer's (Lr) 1,000 mls @ 80 mls/hr IVCONT .[id number] [facility] Last Admin: 09/07/23 05:10 Dose: 80 mls/hr Levothyroxine Sodium (Levothyroxine Sodium 75 Mcg Tablet) 75 mcg PO DAILY@0600 [facility] Last Admin: 09/07/23 05:10 Dose: 75 mcg Metoprolol Succinate (Metoprolol Succinate Er 50 Mg Tab.Er.24h) 50 mg PO DAILY [facility]; Protocol Last Admin: 09/06/23 18:00 Dose: 50 mg Mirtazapine (Mirtazapine 15 Mg Tablet) 15 mg PO DAILY [facility] Morphine Sulfate (Morphine Sulfate 4 Mg/Ml Cartridge) 1 mg IVPUSH Q4H PRN; Protocol PRN Reason: Pain, Severe (Pain Scale 7-10) Multivitamins/Vitamin C (Multivitamin Tablet) 1 tab PO DAILY [facility] Nortriptyline HCl (Nortriptyline Hcl 25 Mg Capsule) 50 mg PO BEDTIME [facility] Last Admin: 09/06/23 20:52 Dose: 50 mg Omeprazole (Omeprazole 20 Mg Capsule.Dr) 20 mg PO DAILY@0630 [facility] Last Admin: 09/07/23 05:10 Dose: 20 mg Ondansetron HCl (Ondansetron Hcl 4 Mg/2 Ml Vial) 4 mg IVPUSH Q8H PRN PRN Reason: Nausea and Vomiting Sodium Chloride (0.9 % Sodium Chloride Flush 3 Ml Syringe) 3 ml IVFLUSH QSHIFT [facility] Last Admin: 09/07/23 07:26 Dose: Not Given Vancomycin HCl (Vancomycin Hcl 125 Mg Capsule) 250 mg PO Q6H [facility] Last Admin: 09/07/23 05:10 Dose: 250 mg Home Medications ?Medication ?Instructions ?Recorded ?Confirmed ?Last Taken ?Type cholecalciferol (vitamin D3) 125 125 mcg PO DAILY 09/06/23 09/06/23 09/06/23 History mcg (5,000 unit) capsule multivitamin 1 tab PO DAILY 09/06/23 09/06/23 Unknown History nortriptyline 50 mg capsule 50 mg PO BEDTIME 09/06/23 09/06/23 09/06/23 History Physical Exam 2 Vital Signs: Vital Signs: Last Vital Signs Temp 99.2 F 09/07/23 03:32 Pulse 107 H 09/07/23 03:32 Resp 18 09/07/23 03:32 BP 131/63 09/07/23 03:32 Pulse Ox 93 09/07/23 03:32 O2 Del Method Room Air 09/07/23 03:32 BMI result Body Mass Index 25.0 Const: Other: Constitutional : Awake, interactive, not in distress Neck : Normal inspection, Supple Cardiovascular : RRR, no JVP, no lower extremity edema Respiratory : good bilateral air entry, no crackles, wheezes or rhonchi Gastrointestinal: soft, lax, Normal bowel sounds, mild generalized tenderness Skin : Warm, Dry Neurological : Alert & oriented x3, No focal deficit Results Labs 09/10/23 05:40 09/10/23 05:40 Labs: Short CBC 09/06/23 09/07/23 Range/Units 10:52 04:50 WBC 20.6 H 19.2 H (4.8-10.8) X10*3/uL Hgb 13.5 D 10.8 L (12.0-16.0) g/dl Hct 41.6 D 33.5 L (37.0-47.0) % Plt Count 283 234 (160-400) X10*3/uL BMP 09/06/23 09/07/23 10:52 04:50 Sodium 139 137 Potassium 3.0 L 3.2 L Chloride 102 105 Carbon Dioxide 24 22 BUN 8 L 5 L Creatinine 0.76 0.65 Calcium 9.4 8.1 L D Liver Function 09/06/23 Range/Units 10:52 Total Bilirubin 1.2 H (0.0-1.0) mg/dL Direct Bilirubin 0.4 (0.0-0.5) mg/dL AST 17 (5-31) U/L ALT 14 (0-31) U/L Alkaline Phosphatase 104 (39-117) U/L Albumin 3.8 (3.5-5.0) g/dL Assessment and Plan (1) Pancolitis: Status: Acute (2) C. difficile colitis: Status: Acute Plan 83 YF with dementia, HTN, anxiety, severe , biliary drain for hx cholecystitis, Hx C.diff, DVT on eliquis seen at [facility] on 09/06/23 with abdominal pain and diarrhea. The patient reported being on oral Clindamycin for teeth infection earlier this week and noted abdominal pain and nausea, diarrhea and decreased PO intake. Pt denied chest pain, palpitations, SOB, vomiting or urinary symptoms with abdominal cramps. Pt was started on Flagyl IV and Vanco PO and admitted for further evaluation and management. . Stool test was positive for C Diff Toxin A & B and Toxin B gene indicating recurrent C Diff infection RECOMMENDATIONS: 1. Continue IV fluids and IV PPI 2. Continue IV metronidazole 3. Stop Vancomycin and start Fidaxomycin 200 mg PO twice daily x 10 days (preferred for recurrent C Diff infection) - order placed 4. Pt can be prescribed a probiotic (Culturelle 1 capsule daily) at discharge. Procedures Date of Service Date of Service: 11/02/23
[2023-09-07 07:31] VITALS: BP 131/60; PULSE 101; RESP 18; TEMP 36.8; O2SAT 92
[2023-09-07] MEDS: Metoprolol Succinate ER 50 MG TAB.ER.24H PO (09:10)
[2023-09-07] MEDS: Mirtazapine 15 MG TABLET PO (09:10)
[2023-09-07] MEDS: Multivitamin TABLET 1 TAB PO (09:10)
[2023-09-07] MEDS: Apixaban 2.5 MG TABLET PO ×2 (09:10→20:35)
[2023-09-07] MEDS: Potassium Chloride ER 20 MEQ TAB.ER.PRT 40 MEQ PO (09:11)
[2023-09-07] MEDS: Fidaxomicin 200 MG TABLET PO ×2 (09:11→20:35)
[2023-09-07 09:47] VITALS: BP 131/60; PULSE 101; O2SAT 92
--- NOTE | 2023-09-07 12:30 | HO.PM.IMPN ---
Subjective Subjective Date of Service: 09/07/23 Interval History: Seen and evaluated this morning feels better overall still having mild pain and diarrhea no reported overnight events Review of Systems Review of Systems: Yes all other systems are reviewed and are negative Physical Exam Vital Signs: Vital Signs: Last Vital Signs Temp 98.3 F 09/07/23 07:31 Pulse 101 H 09/07/23 09:47 Resp 18 09/07/23 07:31 BP 131/60 09/07/23 09:47 Pulse Ox 92 09/07/23 09:47 O2 Del Method Room Air 09/07/23 07:31 BMI result Body Mass Index 25.0 Const: Other: Constitutional : Awake, interactive, not in distress Neck : Normal inspection, Supple Cardiovascular : RRR, no JVP, no lower extremity edema Respiratory : good bilateral air entry, no crackles, wheezes or rhonchi Gastrointestinal: soft, lax, Normal bowel sounds, mild generalized tenderness Skin : Warm, Dry Neurological : Alert & oriented x3, No focal deficit Objective Data Active Medications Acetaminophen (Acetaminophen 325 Mg Tablet) 650 mg PO Q6H PRN PRN Reason: Pain, Mild (Pain Scale 1-3) Apixaban (Apixaban 2.5 Mg Tablet) 2.5 mg PO BID [facility] Last Admin: 09/07/23 09:10 Dose: 2.5 mg Documented By: SHANAE Atorvastatin Calcium (Atorvastatin Calcium 80 Mg Tablet) 80 mg PO BEDTIME [facility] Last Admin: 09/06/23 20:52 Dose: 80 mg Documented By: COTCEASAR Clonazepam (Clonazepam 0.5 Mg Tablet) 0.5 mg PO Q8H PRN PRN Reason: Anxiety Last Admin: 09/06/23 20:52 Dose: 0.5 mg Documented By: FLORIDALMA Fidaxomicin (Fidaxomicin 200 Mg Tablet) 200 mg PO Q12H [facility] Stop: 09/16/23 21:01 Last Admin: 09/07/23 09:11 Dose: 200 mg Documented By: SHANAE Metronidazole (Flagyl) 500 mg in 100 mls @ 100 mls/hr IV Q8H [facility] Last Infusion: 09/07/23 10:21 Dose: Infused Documented By: SHANAE Lactated Ringer's (Lr) 1,000 mls @ 80 mls/hr IVCONT .[id number] [facility] Last Admin: 09/07/23 05:10 Dose: 80 mls/hr Documented By: COTEMA Levothyroxine Sodium (Levothyroxine Sodium 75 Mcg Tablet) 75 mcg PO DAILY@0600 [facility] Last Admin: 09/07/23 05:10 Dose: 75 mcg Documented By: COTEMA Metoprolol Succinate (Metoprolol Succinate Er 50 Mg Tab.Er.24h) 50 mg PO DAILY [facility]; Protocol Last Admin: 09/07/23 09:10 Dose: 50 mg Documented By: SHANAE Mirtazapine (Mirtazapine 15 Mg Tablet) 15 mg PO DAILY [facility] Last Admin: 09/07/23 09:10 Dose: 15 mg Documented By: SHANAE Morphine Sulfate (Morphine Sulfate 4 Mg/Ml Cartridge) 1 mg IVPUSH Q4H PRN; Protocol PRN Reason: Pain, Severe (Pain Scale 7-10) Multivitamins/Vitamin C (Multivitamin Tablet) 1 tab PO DAILY [facility] Last Admin: 09/07/23 09:10 Dose: 1 tab Documented By: SHANAE Nortriptyline HCl (Nortriptyline Hcl 25 Mg Capsule) 50 mg PO BEDTIME [facility] Last Admin: 09/06/23 20:52 Dose: 50 mg Documented By: FLORIDALMA Omeprazole (Omeprazole 20 Mg Capsule.Dr) 20 mg PO DAILY@0630 [facility] Last Admin: 09/07/23 05:10 Dose: 20 mg Documented By: FLORIDALMA Ondansetron HCl (Ondansetron Hcl 4 Mg/2 Ml Vial) 4 mg IVPUSH Q8H PRN PRN Reason: Nausea and Vomiting Sodium Chloride (0.9 % Sodium Chloride Flush 3 Ml Syringe) 3 ml IVFLUSH QSHIFT [facility] Last Admin: 09/07/23 07:26 Dose: Not Given Documented By: SHANAE Non-Admin Reason: IV Running Labs 09/07/23 04:50 09/07/23 04:50 Labs: Laboratory Results - last 24 hr 09/07/23 09/07/23 00:08 04:50 MCV 85.9 MCH 27.7 MCHC 32.2 RDW 14.9 Plt Count 234 MPV 10.2 Absolute Nucleated RBC 0.000 Nucleated RBC % (auto) 0.0 Anion Gap 13 Estim Creat Clear Calc 57.7 Estimated GFR > 60 Random Glucose 107 Calcium 8.1 L D C. difficile Tox B Gene POSITIVE A* C. difficile Toxin A&B Positive A* C. difficile Interpret SEE NOTE Assessment and Plan (1) Sepsis: Status: Acute (2) Pancolitis: Status: Acute (3) Acute hypokalemia: Status: Acute Plan An 83 years old lady with PMH of dementia, HTN, anxiety, severe , biliary drain for hx cholecystitis, Hx C.diff DVT on eliquis who presents to the hospital with abdominal pain and diarrhea. Sepsis 2/2 acute Pancolitis, 2/2 recurrent C.Diff infection Pending cultures Continue IV Flagyl, PO Vancomycin changed to Fidaxomicin on IVF advance diet as tolerated GI consult appreciated Acute hypokalemia replacement given follow BMP DVT continue Eliquis HLD Statin Anxiety Klonopin PRN HTN Metoprolol Mood Mirtazapine, Nortriptyline DVT PPx Eliquis The patient will likely need overnight hospital stay for treatment of pancolitis pending clinical improvement and tolerance of diet Quality Stroke Does the patient have a stroke diagnosis?: No VTE Prior VTE?: No VTE Risk Level:: Medical - moderate - high VTE Device Contraindication: Treatment Not Indicated VTE Drug Contraindication: N/A - Med Ordered
--- NOTE | 2023-09-07 12:36 | P.CDIM_ITS ---
PROVIDER RESPONSE TEXT: To clarify, the appropriate diagnosis supported by the clinical indicators: Sepsis is/was present: confirmed, mentioned in HPI QUERY TEXT: PHYSICIAN'S DOCUMENTATION REQUEST Date of Query: 09/07/2023 11:11 AM EDT Patient Name: Denise Sharp Admit Date: 09/06/2023 Dear Magdiel Clemente, A review of the medical record indicates additional documentation may be needed. Please review below and update the documentation accordingly. Clinical indicators: LA wnl Temp 97.1 RR 20 HR 115 WBC 20 Ed: no fevers, no chills IV Flagyl, PO Vancomycin Acute pancolitis, infectious vs inflammatory Sepsis Systemic manifestations of infection, with 2 or more SIRS criteria which include: Fever > 100.4?F or hypothermia < 96.8?F Leukocytosis - WBC > 12,000 or leukopenia, WBC < 4,000, or > 10% bands Tachycardia- > 90 beats/minute Tachypnea- RR > 20 breaths/minute or PaCO2 < 32mmHg Based on the above information and the recognized standard for sepsis, could you please clarify if th is diagnoses is still accurate and reflective of the patient's condition to ensure quality of the medical record. Sepsis is/was present resolved, suspected, possible, probable etc. After study (the condition) has been ruled out Other (explain) Clinically unable to determine (explain) Thank you, Yuliana Holder, CCS, CDIS Use of terms such as suspected, likely, concern for, or probable (associated with a specific diagnosi s that is being evaluated, monitored, or treated as if it exists) are acceptable and can be coded in the inpatient se tting, when documented at the time of discharge. Please use your independent medical judgment in providing your response. THIS QUERY IS PART OF THE PERMANENT MEDICAL RECORD
--- NOTE | 2023-09-07 13:56 | MHC.CM.PN ---
Addendum entered by Radha Tejeda RN 09/07/23 14:18: HCP REC'D FROM [facility]. UPLOADED TO [employer] AND COPY PLACED IN PAPER CHART. Original Note: IMM DELIVERED. DX DEMENTIA - SOME STM LOSS BUT ABLE TO FUNCTION INDEPENDENTLY. A+OX3 AND ANSWERING ALL QUESTIONS APPROPRIATELY AT THIS TIME. PATIENT LIVES AT HOME ALONE. FAMILY LIVES NEARBY AND PROVIDES REGULAR SUPPORT. DAUGHTER IN LAW FILLS [employer]. AMBULATES W/ [employer]. ACTIVE W/ [facility] FOR GROUP HOME. PCP ROWAN KYLE MD HCP REQUESTED FROM [facility], AGENTS ARE 1) SON ALE ADAM [phone] AND 2) RAMONE ADAM [phone] DP: GOAL IS HOME W/ FAMILY SUPPORT AND RESUMPTION OF VNA SERVICES. SON TO TRANSPORT. CM WILL CONTINUE TO FOLLOW FOR DC NEEDS.
[2023-09-07 15:58] VITALS: BP 117/55; PULSE 94; RESP 18; TEMP 36.6; O2SAT 96
[2023-09-07 19:21] VITALS: BP 144/68; PULSE 100; RESP 20; TEMP 36.4; O2SAT 96
[2023-09-07] MEDS: Atorvastatin Calcium 80 MG TABLET PO (20:35)
[2023-09-07] MEDS: Nortriptyline HCl 25 MG CAPSULE 50 MG PO (20:35)
[2023-09-07] MEDS: clonazePAM 0.5 MG TABLET PO (20:36)
[2023-09-08] MEDS: metroNIDAZOLE/NS 500 MG/100 ML PIGGYBACK 100 MG IV ×3 (01:51→19:32)
[2023-09-08 03:26] VITALS: BP 130/60; PULSE 97; RESP 18; TEMP 36.6; O2SAT 94
[2023-09-08] MEDS: Levothyroxine Sodium 75 MCG TABLET PO (05:45)
[2023-09-08] MEDS: Omeprazole 20 MG CAPSULE.DR PO (05:45)
[2023-09-08 05:58] LABS: Hemoglobin 10.1 g/dl (12.0-16.0); Mean Corpuscular HGB Conc 31.6 g/dl (31.0-35.0); Mean Corpuscular Hemoglobin 27.4 pg (27.0-33.0); Mean Platelet Volume 9.9 fL (9.4-12.3); Platelet Count 209 X10*3/uL (160-400); Red Blood Count 3.68 X10*6/uL (4.20-5.50); Red Cell Distribution Width 14.7 % (11.0-16.0); White Blood Count 12.5 X10*3/uL (4.8-10.8)
[2023-09-08 06:36] LABS: Anion Gap 10 (12-20); Blood Urea Nitrogen 5 mg/dL (9-16); Calcium 8.3 mg/dL (8.4-10.2); Carbon Dioxide 25 mmol/L (22-29); Chloride 109 mmol/L (96-108); Creatinine Clr Calc Pharmacy 63.7; Estimated Glomerular Filt Rate > 60; Glucose Random 96 mg/dL (60-115); Potassium 3.3 mmol/L (3.3-5.1); Sodium 141 mmol/L (135-145)
[2023-09-08 07:01] VITALS: BP 139/63; PULSE 88; RESP 16; TEMP 36.4; O2SAT 95
[2023-09-08] MEDS: Lactated Ringers 1,000 ML 80 ML IVCONT (08:24)
[2023-09-08] MEDS: Multivitamin TABLET 1 TAB PO (08:25)
[2023-09-08] MEDS: Apixaban 2.5 MG TABLET PO ×2 (08:25→19:41)
[2023-09-08] MEDS: Mirtazapine 15 MG TABLET PO (08:25)
[2023-09-08] MEDS: Fidaxomicin 200 MG TABLET PO ×2 (08:25→19:41)
[2023-09-08] MEDS: Metoprolol Succinate ER 50 MG TAB.ER.24H PO (08:25)
--- NOTE | 2023-09-08 10:38 | P.PNIM_ITS ---
Subjective Subjective Date of Service: 09/08/23 Interval History: Seen and evaluated this morning feels better overall having mild pain and episodes of diarrhea blood cultures pending no reported overnight events Physical Exam 2 Vital Signs: Vital Signs: Last Vital Signs Temp 97.5 F 09/08/23 07:01 Pulse 88 09/08/23 07:01 Resp 16 09/08/23 07:01 BP 139/63 09/08/23 07:01 Pulse Ox 95 09/08/23 07:01 O2 Del Method Room Air 09/08/23 07:01 BMI result Body Mass Index 25.0 Const: Other: Constitutional : Awake, interactive, not in distress Neck : Normal inspection, Supple Cardiovascular : RRR, no JVP, no lower extremity edema Respiratory : good bilateral air entry, no crackles, wheezes or rhonchi Gastrointestinal: soft, lax, Normal bowel sounds, mild generalized tenderness Skin : Warm, Dry Neurological : Alert & oriented x3, No focal deficit Objective Data Active Medications Acetaminophen (Acetaminophen 325 Mg Tablet) 650 mg PO Q6H PRN PRN Reason: Pain, Mild (Pain Scale 1-3) Apixaban (Apixaban 2.5 Mg Tablet) 2.5 mg PO BID [facility] Last Admin: 09/08/23 08:25 Dose: 2.5 mg Documented By: HAWA Atorvastatin Calcium (Atorvastatin Calcium 80 Mg Tablet) 80 mg PO BEDTIME [facility] Last Admin: 09/07/23 20:35 Dose: 80 mg Documented By: MATTEO Clonazepam (Clonazepam 0.5 Mg Tablet) 0.5 mg PO Q8H PRN PRN Reason: Anxiety Last Admin: 09/07/23 20:36 Dose: 0.5 mg Documented By: MATTEO Fidaxomicin (Fidaxomicin 200 Mg Tablet) 200 mg PO Q12H [facility] Stop: 09/16/23 21:01 Last Admin: 09/08/23 08:25 Dose: 200 mg Documented By: HAWA Metronidazole (Flagyl) 500 mg in 100 mls @ 100 mls/hr IV Q8H [facility] Last Admin: 09/08/23 09:55 Dose: 100 mls/hr Documented By: HAWA Lactated Ringer's (Lr) 1,000 mls @ 80 mls/hr IVCONT .[id number] [facility] Last Admin: 09/08/23 08:24 Dose: 80 mls/hr Documented By: HAWA Levothyroxine Sodium (Levothyroxine Sodium 75 Mcg Tablet) 75 mcg PO DAILY@0600 [facility] Last Admin: 09/08/23 05:45 Dose: 75 mcg Documented By: MATTEO Metoprolol Succinate (Metoprolol Succinate Er 50 Mg Tab.Er.24h) 50 mg PO DAILY [facility]; Protocol Last Admin: 09/08/23 08:25 Dose: 50 mg Documented By: HAWA Mirtazapine (Mirtazapine 15 Mg Tablet) 15 mg PO DAILY [facility] Last Admin: 09/08/23 08:25 Dose: 15 mg Documented By: HAWA Morphine Sulfate (Morphine Sulfate 4 Mg/Ml Cartridge) 1 mg IVPUSH Q4H PRN; Protocol PRN Reason: Pain, Severe (Pain Scale 7-10) Multivitamins/Vitamin C (Multivitamin Tablet) 1 tab PO DAILY [facility] Last Admin: 09/08/23 08:25 Dose: 1 tab Documented By: HAWA Nortriptyline HCl (Nortriptyline Hcl 25 Mg Capsule) 50 mg PO BEDTIME [facility] Last Admin: 09/07/23 20:35 Dose: 50 mg Documented By: MATTEO Omeprazole (Omeprazole 20 Mg Capsule.) 20 mg PO DAILY@0630 [facility] Last Admin: 09/08/23 05:45 Dose: 20 mg Documented By: MATTEO Ondansetron HCl (Ondansetron Hcl 4 Mg/2 Ml Vial) 4 mg IVPUSH Q8H PRN PRN Reason: Nausea and Vomiting Sodium Chloride (0.9 % Sodium Chloride Flush 3 Ml Syringe) 3 ml IVFLUSH QSHIFT [facility] Last Admin: 09/08/23 08:24 Dose: Not Given Documented By: HAWA Non-Admin Reason: IV Running Labs 09/08/23 05:11 09/08/23 05:11 Labs: Laboratory Results - last 24 hr 09/08/23 05:11 MCV 87.0 MCH 27.4 MCHC 31.6 RDW 14.7 Plt Count 209 MPV 9.9 Absolute Nucleated RBC 0.000 Nucleated RBC % (auto) 0.0 Anion Gap 10 L Estim Creat Clear Calc 63.7 Estimated GFR > 60 Random Glucose 96 Calcium 8.3 L Microbiology Microbiology Results: Microbiology 09/06/23 11:58 Blood Culture - Preliminary Blood - Venous No growth after 24 hours. 09/06/23 10:55 Blood Culture - Preliminary Blood - Venous No growth after 24 hours. Assessment and Plan (1) Sepsis: Status: Acute (2) Pancolitis: Status: Acute (3) C. 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 Sepsis 2/2 acute Pancolitis, 2/2 recurrent C.Diff infection Pending cultures Continue IV Flagyl, PO Fidaxomicin for total of 10 days on IVF advance diet as tolerated GI consult appreciated Acute hypokalemia replacement given follow BMP DVT continue Eliquis HLD Statin Anxiety Klonopin PRN HTN Metoprolol Mood Mirtazapine, Nortriptyline DVT PPx Eliquis The patient will likely need overnight hospital stay for treatment of pancolitis pending clinical improvement and gayathri lblood cultures Quality Stroke Does the patient have a stroke diagnosis?: No VTE Prior VTE?: No VTE Risk Level:: Medical - moderate - high VTE Device Contraindication: Treatment Not Indicated VTE Drug Contraindication: N/A - Med Ordered
[2023-09-08 14:58] LABS: Appearance Urine Clear; Color Urine Yellow; Glucose Urine UA Negative (Negative); Leukocyte Esterase Urine Small (1+) (Negative); Nitrite Urine Negative (Negative); UMIC TRIGGER UACC YES; Urine Blood Negative (Negative); Urine Ketones Negative (Negative); Urine Protein Negative (Neg-Trace)
[2023-09-08 15:14] LABS: Bacteria Urine Trace (None Seen); Hyaline Casts Urine 0-2 /LPF (0-2); RBC Urine 0-2 /HPF (0-2); UACC Culture Trigger YES
[2023-09-08 15:18] VITALS: BP 143/70; PULSE 90; RESP 18; TEMP 36.7; O2SAT 96
[2023-09-08] MEDS: 0.9 % Sodium Chloride Flush 3 ML SYRINGE IVFLUSH (17:21)
--- NOTE | 2023-09-08 18:44 | PC.NURSE ---
IV in Pts left hand painful with flush removed per pts request. Attempted to replace Peripheral IV by two floor nurses without success. Local Driver emmie texted for attempt.
[2023-09-08 19:38] VITALS: BP 132/70; PULSE 99; RESP 18; TEMP 36.6; O2SAT 97
[2023-09-08] MEDS: Nortriptyline HCl 25 MG CAPSULE 50 MG PO (19:40)
[2023-09-08] MEDS: Atorvastatin Calcium 80 MG TABLET PO (19:41)
[2023-09-08] MEDS: clonazePAM 0.5 MG TABLET PO (19:41)
[2023-09-09] MEDS: metroNIDAZOLE/NS 500 MG/100 ML PIGGYBACK 100 MG IV ×3 (02:17→16:59)
[2023-09-09 03:08] VITALS: BP 138/65; PULSE 97; RESP 18; TEMP 36.4; O2SAT 95
[2023-09-09] MEDS: Omeprazole 20 MG CAPSULE.DR PO (05:53)
[2023-09-09] MEDS: Levothyroxine Sodium 75 MCG TABLET PO (05:53)
[2023-09-09 06:07] LABS: Hematocrit 32.8 % (37.0-47.0); Hemoglobin 10.6 g/dl (12.0-16.0); Mean Corpuscular HGB Conc 32.3 g/dl (31.0-35.0); Mean Corpuscular Hemoglobin 27.6 pg (27.0-33.0); Mean Corpuscular Volume 85.4 fL (80.0-98.0); Mean Platelet Volume 9.8 fL (9.4-12.3); Platelet Count 233 X10*3/uL (160-400); Red Blood Count 3.84 X10*6/uL (4.20-5.50); Red Cell Distribution Width 14.6 % (11.0-16.0); White Blood Count 9.5 X10*3/uL (4.8-10.8)
[2023-09-09 06:09] LABS: Anion Gap 10 (12-20); Blood Urea Nitrogen 6 mg/dL (9-16); Calcium 8.5 mg/dL (8.4-10.2); Carbon Dioxide 25 mmol/L (22-29); Chloride 110 mmol/L (96-108); Creatinine Clr Calc Pharmacy 54.4; Estimated Glomerular Filt Rate > 60; Glucose Random 108 mg/dL (60-115); Potassium 3.3 mmol/L (3.3-5.1); Sodium 142 mmol/L (135-145)
[2023-09-09] MEDS: 0.9 % Sodium Chloride Flush 3 ML SYRINGE IVFLUSH (07:21)
[2023-09-09 07:34] VITALS: BP 145/76; PULSE 102; RESP 18; TEMP 36.5; O2SAT 98
[2023-09-09] MEDS: Fidaxomicin 200 MG TABLET PO ×2 (08:31→19:38)
[2023-09-09] MEDS: Apixaban 2.5 MG TABLET PO ×2 (08:31→19:38)
[2023-09-09] MEDS: Mirtazapine 15 MG TABLET PO (08:31)
[2023-09-09] MEDS: Metoprolol Succinate ER 50 MG TAB.ER.24H PO (08:34)
[2023-09-09] MEDS: Multivitamin TABLET 1 TAB PO (08:34)
--- NOTE | 2023-09-09 08:39 | PC.NURSE ---
Pt. stated that she took her own klonopin from home, son at bedside. Bag was checked and found some yellow pills in ziplock bag and 1 pill in small container. No other meds were found. Son took the all the medicine home.
--- NOTE | 2023-09-09 09:47 | P.PNIM_ITS ---
Subjective Subjective Date of Service: 09/09/23 Interval History: Seen and evaluated this morning anxious and teary having diarrhea no reported other overnight events Review of Systems Review of Systems: Yes all other systems are reviewed and are negative Physical Exam 2 Vital Signs: Vital Signs: Last Vital Signs Temp 97.7 F 09/09/23 07:34 Pulse 102 H 09/09/23 07:34 Resp 18 09/09/23 07:34 BP 145/76 H 09/09/23 07:34 Pulse Ox 98 09/09/23 07:34 O2 Del Method Room Air 09/09/23 07:34 BMI result Body Mass Index 25.0 Const: Other: Constitutional : Awake, interactive, not in distress Neck : Normal inspection, Supple Cardiovascular : RRR, no JVP, no lower extremity edema Respiratory : good bilateral air entry, no crackles, wheezes or rhonchi Gastrointestinal: soft, lax, Normal bowel sounds, no tenderness Skin : Warm, Dry Neurological : Alert & oriented x3, No focal deficit Objective Data Active Medications Acetaminophen (Acetaminophen 325 Mg Tablet) 650 mg PO Q6H PRN PRN Reason: Pain, Mild (Pain Scale 1-3) Apixaban (Apixaban 2.5 Mg Tablet) 2.5 mg PO BID [facility] Last Admin: 09/09/23 08:31 Dose: 2.5 mg Documented By: HAWA Atorvastatin Calcium (Atorvastatin Calcium 80 Mg Tablet) 80 mg PO BEDTIME [facility] Last Admin: 09/08/23 19:41 Dose: 80 mg Documented By: MATTEO Clonazepam (Clonazepam 0.5 Mg Tablet) 0.5 mg PO Q8H PRN PRN Reason: Anxiety Last Admin: 09/08/23 19:41 Dose: 0.5 mg Documented By: MATTEO Fidaxomicin (Fidaxomicin 200 Mg Tablet) 200 mg PO Q12H [facility] Stop: 09/16/23 21:01 Last Admin: 09/09/23 08:31 Dose: 200 mg Documented By: HAWA Metronidazole (Flagyl) 500 mg in 100 mls @ 100 mls/hr IV Q8H [facility] Last Infusion: 09/09/23 03:23 Dose: Infused Documented By: MATTEO Lactated Ringer's (Lr) 1,000 mls @ 100 mls/hr IVCONT .Q10H [facility] Levothyroxine Sodium (Levothyroxine Sodium 75 Mcg Tablet) 75 mcg PO DAILY@0600 [facility] Last Admin: 09/09/23 05:53 Dose: 75 mcg Documented By: MATTEO Metoprolol Succinate (Metoprolol Succinate Er 50 Mg Tab.Er.24h) 50 mg PO DAILY [facility]; Protocol Last Admin: 09/09/23 08:34 Dose: 50 mg Documented By: HAWA Mirtazapine (Mirtazapine 15 Mg Tablet) 15 mg PO DAILY [facility] Last Admin: 09/09/23 08:31 Dose: 15 mg Documented By: HAWA Morphine Sulfate (Morphine Sulfate 4 Mg/Ml Cartridge) 1 mg IVPUSH Q4H PRN; Protocol PRN Reason: Pain, Severe (Pain Scale 7-10) Multivitamins/Vitamin C (Multivitamin Tablet) 1 tab PO DAILY [facility] Last Admin: 09/09/23 08:34 Dose: 1 tab Documented By: HAWA Nortriptyline HCl (Nortriptyline Hcl 25 Mg Capsule) 50 mg PO BEDTIME [facility] Last Admin: 09/08/23 19:40 Dose: 50 mg Documented By: MATTEO Omeprazole (Omeprazole 20 Mg Capsule.Dr) 20 mg PO DAILY@0630 [facility] Last Admin: 09/09/23 05:53 Dose: 20 mg Documented By: MATTEO Ondansetron HCl (Ondansetron Hcl 4 Mg/2 Ml Vial) 4 mg IVPUSH Q8H PRN PRN Reason: Nausea and Vomiting Sodium Chloride (0.9 % Sodium Chloride Flush 3 Ml Syringe) 3 ml IVFLUSH QSHIFT [facility] Last Admin: 09/09/23 07:21 Dose: 3 ml Documented By: AHWA Labs 09/09/23 05:24 09/09/23 05:24 Labs: Laboratory Results - last 24 hr 09/08/23 09/09/23 Unknown 05:24 MCV 85.4 MCH 27.6 MCHC 32.3 RDW 14.6 Plt Count 233 MPV 9.8 Absolute Nucleated RBC 0.000 Nucleated RBC % (auto) 0.0 Anion Gap 10 L Estim Creat Clear Calc 54.4 Estimated GFR > 60 Random Glucose 108 Calcium 8.5 Urine Color Yellow Urine Appearance Clear Urine pH 7.0 Ur Specific [place] 1.010 Urine Protein Negative Urine Glucose (UA) Negative Urine Ketones Negative Urine Blood Negative Urine Nitrite Negative Ur Leukocyte Esterase Small (1+) H Urine RBC 0-2 Urine WBC 6-10 H Ur Squamous Epith Cells 6-10 Urine Bacteria Trace Hyaline Casts 0-2 Urine Yeast Present Microbiology Microbiology Results: Microbiology 09/08/23 15:14 Urine Culture - Final Urine clean catch - Clean Catch Midstream No growth. 09/06/23 11:58 Blood Culture - Preliminary Blood - Venous No growth after 48 hours. 09/06/23 10:55 Blood Culture - Preliminary Blood - Venous No growth after 48 hours. Assessment and Plan (1) Sepsis: Status: Acute (2) Acute hypokalemia: Status: Acute (3) Pancolitis: Status: Acute (4) C. 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 Sepsis 2/2 acute Pancolitis, 2/2 recurrent C.Diff infection negative cultures Continue IV Flagyl, PO Fidaxomicin for total of 10 days restart IVF advance diet as tolerated GI consult appreciated Acute hypokalemia replacement given follow BMP DVT continue Eliquis HLD Statin Anxiety Klonopin PRN HTN Metoprolol Mood Mirtazapine, Nortriptyline DVT PPx Eliquis The patient will likely need overnight hospital stay for treatment of pancolitis pending clinical improvement Quality Stroke Does the patient have a stroke diagnosis?: No VTE Prior VTE?: No VTE Risk Level:: Medical - moderate - high VTE Device Contraindication: Treatment Not Indicated VTE Drug Contraindication: N/A - Med Ordered
[2023-09-09] MEDS: Lactated Ringers 1,000 ML 100 ML IVCONT ×2 (10:48→21:35)
[2023-09-09 15:29] VITALS: BP 144/77; PULSE 97; RESP 14; TEMP 36.4; O2SAT 96
[2023-09-09] MEDS: Acetaminophen 325 MG TABLET 650 MG PO (16:59)
[2023-09-09 19:19] VITALS: BP 143/64; PULSE 94; RESP 18; TEMP 36.2; O2SAT 97
[2023-09-09] MEDS: clonazePAM 0.5 MG TABLET PO (19:38)
[2023-09-09] MEDS: Nortriptyline HCl 25 MG CAPSULE 50 MG PO (19:38)
[2023-09-09] MEDS: Atorvastatin Calcium 80 MG TABLET PO (19:38)
[2023-09-10] MEDS: metroNIDAZOLE/NS 500 MG/100 ML PIGGYBACK 100 MG IV (02:03)
[2023-09-10 06:17] LABS: Hematocrit 32.2 % (37.0-47.0); Hemoglobin 10.3 g/dl (12.0-16.0); Mean Corpuscular Hemoglobin 27.8 pg (27.0-33.0); Mean Platelet Volume 9.6 fL (9.4-12.3); Platelet Count 248 X10*3/uL (160-400); Red Cell Distribution Width 14.6 % (11.0-16.0); White Blood Count 8.1 X10*3/uL (4.8-10.8)
[2023-09-10 06:30] LABS: Anion Gap 12 (12-20); Blood Urea Nitrogen 4 mg/dL (9-16); Calcium 8.4 mg/dL (8.4-10.2); Carbon Dioxide 24 mmol/L (22-29); Chloride 112 mmol/L (96-108); Creatinine Clr Calc Pharmacy 61.5; Estimated Glomerular Filt Rate > 60; Glucose Random 87 mg/dL (60-115); Potassium 3.5 mmol/L (3.3-5.1); Sodium 144 mmol/L (135-145)
[2023-09-10 07:09] VITALS: BP 158/73; PULSE 99; RESP 18; TEMP 36; O2SAT 98
[2023-09-10] MEDS: Mirtazapine 15 MG TABLET PO (07:27)
[2023-09-10] MEDS: Multivitamin TABLET 1 TAB PO (07:27)
[2023-09-10] MEDS: Omeprazole 20 MG CAPSULE.DR PO (07:27)
[2023-09-10] MEDS: Levothyroxine Sodium 75 MCG TABLET PO (07:27)
[2023-09-10] MEDS: Fidaxomicin 200 MG TABLET PO ×2 (07:27→20:16)
[2023-09-10] MEDS: Apixaban 2.5 MG TABLET PO ×2 (07:27→20:16)
[2023-09-10] MEDS: Lactated Ringers 1,000 ML 100 ML IVCONT (07:28)
[2023-09-10] MEDS: Metoprolol Succinate ER 50 MG TAB.ER.24H PO (07:28)
[2023-09-10] MEDS: Butalb/Acetamin/Caff 50/325/40 TABLET 1 TAB PO (08:27)
[2023-09-10] MEDS: clonazePAM 0.5 MG TABLET PO (08:27)
--- NOTE | 2023-09-10 09:36 | HO.PM.IMPN ---
Subjective Subjective Date of Service: 09/10/23 Interval History: Seen and evaluated this morning anxious and confused improving diarrhea no reported other overnight events Review of Systems Review of Systems: Yes all other systems are reviewed and are negative Physical Exam Vital Signs: Vital Signs: Last Vital Signs Temp 96.8 F 09/10/23 07:09 Pulse 99 09/10/23 07:09 Resp 18 09/10/23 07:09 BP 158/73 H 09/10/23 07:09 Pulse Ox 98 09/10/23 07:09 O2 Del Method Room Air 09/10/23 07:09 BMI result Body Mass Index 25.0 Const: Other: Constitutional : Awake, interactive, not in distress Neck : Normal inspection, Supple Cardiovascular : RRR, no JVP, no lower extremity edema Respiratory : good bilateral air entry, no crackles, wheezes or rhonchi Gastrointestinal: soft, lax, Normal bowel sounds, no tenderness Skin : Warm, Dry Neurological : Alert & oriented to self only otherwise confused, No focal deficit Objective Data Active Medications Acetaminophen (Acetaminophen 325 Mg Tablet) 650 mg PO Q6H PRN PRN Reason: Pain, Mild (Pain Scale 1-3) Last Admin: 09/09/23 16:59 Dose: 650 mg Documented By: HAWA Apixaban (Apixaban 2.5 Mg Tablet) 2.5 mg PO BID [facility] Last Admin: 09/10/23 07:27 Dose: 2.5 mg Documented By: DENISE Atorvastatin Calcium (Atorvastatin Calcium 80 Mg Tablet) 80 mg PO BEDTIME [facility] Last Admin: 09/09/23 19:38 Dose: 80 mg Documented By: DAMIAN Clonazepam (Clonazepam 0.5 Mg Tablet) 0.5 mg PO Q8H PRN PRN Reason: Anxiety Last Admin: 09/10/23 08:27 Dose: 0.5 mg Documented By: DENISE Fidaxomicin (Fidaxomicin 200 Mg Tablet) 200 mg PO Q12H [facility] Stop: 09/16/23 21:01 Last Admin: 09/10/23 07:27 Dose: 200 mg Documented By: DENISE Levothyroxine Sodium (Levothyroxine Sodium 75 Mcg Tablet) 75 mcg PO DAILY@0600 [facility] Last Admin: 09/10/23 07:27 Dose: 75 mcg Documented By: DENISE Metoprolol Succinate (Metoprolol Succinate Er 50 Mg Tab.Er.24h) 50 mg PO DAILY [facility]; Protocol Last Admin: 09/10/23 07:28 Dose: 50 mg Documented By: DENISE Mirtazapine (Mirtazapine 15 Mg Tablet) 15 mg PO DAILY [facility] Last Admin: 09/10/23 07:27 Dose: 15 mg Documented By: DENISE Morphine Sulfate (Morphine Sulfate 4 Mg/Ml Cartridge) 1 mg IVPUSH Q4H PRN; Protocol PRN Reason: Pain, Severe (Pain Scale 7-10) Multivitamins/Vitamin C (Multivitamin Tablet) 1 tab PO DAILY [facility] Last Admin: 09/10/23 07:27 Dose: 1 tab Documented By: DENISE Nortriptyline HCl (Nortriptyline Hcl 25 Mg Capsule) 50 mg PO BEDTIME [facility] Last Admin: 09/09/23 19:38 Dose: 50 mg Documented By: DAMIAN Omeprazole (Omeprazole 20 Mg Capsule.Dr) 20 mg PO DAILY@0630 [facility] Last Admin: 09/10/23 07:27 Dose: 20 mg Documented By: DENISE Ondansetron HCl (Ondansetron Hcl 4 Mg/2 Ml Vial) 4 mg IVPUSH Q8H PRN PRN Reason: Nausea and Vomiting Sodium Chloride (0.9 % Sodium Chloride Flush 3 Ml Syringe) 3 ml IVFLUSH QSHIFT [facility] Last Admin: 09/10/23 07:28 Dose: Not Given Documented By: DENISE Non-Admin Reason: IV Running Labs 09/10/23 05:40 09/10/23 05:40 Labs: Laboratory Results - last 24 hr 09/10/23 05:40 MCV 87.0 MCH 27.8 MCHC 32.0 RDW 14.6 Plt Count 248 MPV 9.6 Absolute Nucleated RBC 0.000 Nucleated RBC % (auto) 0.0 Anion Gap 12 Estim Creat Clear Calc 61.5 Estimated GFR > 60 Random Glucose 87 Calcium 8.4 Microbiology Microbiology Results: Microbiology 09/08/23 15:14 Urine Culture - Final Urine clean catch - Clean Catch Midstream No growth. Assessment and Plan (1) Toxic metabolic encephalopathy: Status: Acute (2) Sepsis: Status: Acute (3) Pancolitis: Status: Acute (4) Acute hypokalemia: Status: Acute (5) C. 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 Sepsis 2/2 acute Pancolitis, 2/2 recurrent C.Diff infection negative cultures Diarrhea improving DC IV Flagyl, PO Fidaxomicin for total of 10 days DC IVF advance diet as tolerated GI consult appreciated Acute hypokalemia replacement given follow BMP recent DVT continue Eliquis acute Toxic metabolic encephalopathy Likely related to home medications , dementia and inpatient delerium Decrease Klonopin PRN Decreased Mirtazapine, Nortriptyline Get Psychiatry evaluation for medication advice and outpatient follow up HLD Statin Anxiety Decrease Klonopin PRN HTN Metoprolol Mood Decrease Mirtazapine, Nortriptyline DVT PPx Eliquis The patient will likely need overnight hospital stay for treatment of pancolitis and Toxic encephalopathy pending clinical improvement Quality Stroke Does the patient have a stroke diagnosis?: No VTE Prior VTE?: No VTE Risk Level:: Medical - moderate - high VTE Device Contraindication: Treatment Not Indicated VTE Drug Contraindication: N/A - Med Ordered
--- NOTE | 2023-09-10 14:23 | MHC.CM.PN ---
Addendum entered by Alma Caldera RN 09/10/23 14:43: PLAN FOR PT TO BE REASSESSED BY P.T. Original Note: EMR REVIEWED, PT W/DEMENTIA/CDIF/CONFUSION, PER P.T. EVAL NO SERVICES/STR RECOMMENDED, PSYCH CONSULT PENDING FOR MEDS AND OUTPT FOLLOW-UP, CM WILL CONT TO FOLLOW DC NEEDS.
[2023-09-10 15:00] VITALS: BP 158/73; PULSE 99; O2SAT 98
--- NOTE | 2023-09-10 15:23 | P.CNPS_ITS ---
<Statement entered by Damián Lynn MD - 09/11/23 20:52> recommend [facility] next appt History of Present Illness Date of Service: 09/10/23 Chief Complaint: abd pain Reason for Consult: Depression, anxiety, medication adjustment. 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 Consult placed to psychiatry for: depression, anxiety, medication adjustment. During admission assessment, pt presents calm and cooperative. She is alert and oriented to time, place, person and situation. Pt reports feeling good today; pt stated, I came to the hospital because I wasn't feeling good . Pt reports hx of seeing a psychiatrist and therapist 20 years ago d/t having panic attacks ; she reports not having any in a long time . Pt stated, I was [age] when I moved to [place] with my . We moved away from my family and I started being nervous then. My doctor put me on Nortriptyline when my because I was depressed. It helped my mood. In the winter, I get sad because I can't do anything outside anymore since I'm 83 and can break things easily. When it's warm out, my son and I go [address] in the [place] . Pt reports she used to go to the [facility] prior to COVID but then stopped; she reports keeping busy by cleaning, reading, watching tv and doing cross word puzzles . Pt became tearful when discussing ; pt stated, I'm still not over him passing. I was with him since I was [age] . Pt reports she is hoping to be discharged home soon. denies SI/HI/VH/AH. Past Psychiatric History: pt denies any hx of inpatient psychiatric hospitalizations. Pt does not have outpatient psychiatrist or therapist. No hx SIB/SA. [facility] Medical History Nonrheumatic aortic (valve) stenosis Generalized anxiety disorder Hypercholesterolemia Surgical History History of colonoscopy Family History: denies Social History: Lives alone, ( 11 years ago), 2 children (both live in the area). Substance History: denies Trauma History: denies Diagnostics Vital Signs (24Hr): Vital Signs - 24 hr 09/09/23 15:29 09/09/23 19:19 09/10/23 07:09 Temperature 97.6 F 97.1 F 96.8 F Pulse Rate 97 94 99 Respiratory Rate 14 18 18 Blood Pressure 144/77 H 143/64 H 158/73 H Pulse Oximetry 96 97 98 Oxygen Delivery Method Room Air Room Air Room Air 09/10/23 15:00 Temperature Pulse Rate 99 Respiratory Rate Blood Pressure 158/73 H Pulse Oximetry 98 Oxygen Delivery Method BMI result Body Mass Index 25.0 Labs 09/10/23 05:40 09/10/23 05:40 Labs: Laboratory Results - last 48 hr 09/09/23 09/10/23 05:24 05:40 WBC 9.5 8.1 RBC 3.84 L 3.70 L Hgb 10.6 L 10.3 L Hct 32.8 L 32.2 L MCV 85.4 87.0 MCH 27.6 27.8 MCHC 32.3 32.0 RDW 14.6 14.6 Plt Count 233 248 MPV 9.8 9.6 Absolute Nucleated RBC 0.000 0.000 Nucleated RBC % (auto) 0.0 0.0 Sodium 142 144 Potassium 3.3 3.5 Chloride 110 H 112 H Carbon Dioxide 25 24 Anion Gap 10 L 12 BUN 6 L 4 L Creatinine 0.69 0.61 Estim Creat Clear Calc 54.4 61.5 Estimated GFR > 60 > 60 Random Glucose 108 87 Calcium 8.5 8.4 Imaging Radiology Impressions: ITS Impressions Abdomen/Pelvis CT 09/06/23 14:36 IMPRESSION: 1. Diffuse colitis involving the entire colon likely inflammatory or infectious etiology. There is no pericolic abscess or free air. 2. There is a percutaneous placed cholecystostomy tube in a dilated gallbladder. There is punctate gas in the intrahepatic fissure. 3. Small hiatal hernia. Fleischner guidelines were followed. Mental Status Exam Mental Status Exam Narrative: Pt is alert and oriented; behavior is cooperative, friendly and calm; dressed in casual attire; mood is described as good ; eye contact appropriate; Speech is normal rate, volume and prosody and not pressured; thought process is organized; Thought content is on discharge; otherwise pertinent to relevant topics and without any delusional content, paranoid ideations or grandiosity; denies SI/HI/VH/AH. Medications Medications Current Medications Acetaminophen (Acetaminophen 325 Mg Tablet) 650 mg PO Q6H PRN PRN Reason: Pain, Mild (Pain Scale 1-3) Last Admin: 09/09/23 16:59 Dose: 650 mg Apixaban (Apixaban 2.5 Mg Tablet) 2.5 mg PO BID [facility] Last Admin: 09/10/23 07:27 Dose: 2.5 mg Atorvastatin Calcium (Atorvastatin Calcium 80 Mg Tablet) 80 mg PO BEDTIME [facility] Last Admin: 09/09/23 19:38 Dose: 80 mg Clonazepam (Clonazepam 0.5 Mg Tablet) 0.25 mg PO Q8H PRN PRN Reason: Anxiety Fidaxomicin (Fidaxomicin 200 Mg Tablet) 200 mg PO Q12H [facility] Stop: 09/16/23 21:01 Last Admin: 09/10/23 07:27 Dose: 200 mg Levothyroxine Sodium (Levothyroxine Sodium 75 Mcg Tablet) 75 mcg PO DAILY@0600 [facility] Last Admin: 09/10/23 07:27 Dose: 75 mcg Metoprolol Succinate (Metoprolol Succinate Er 50 Mg Tab.Er.24h) 50 mg PO DAILY [facility]; Protocol Last Admin: 09/10/23 07:28 Dose: 50 mg Mirtazapine (Mirtazapine 7.5 Mg Tablet) 7.5 mg PO DAILY [facility] Multivitamins/Vitamin C (Multivitamin Tablet) 1 tab PO DAILY [facility] Last Admin: 09/10/23 07:27 Dose: 1 tab Nortriptyline HCl (Nortriptyline Hcl 25 Mg Capsule) 25 mg PO BEDTIME [facility] Omeprazole (Omeprazole 20 Mg Capsule.Dr) 20 mg PO DAILY@0630 [facility] Last Admin: 09/10/23 07:27 Dose: 20 mg Ondansetron HCl (Ondansetron Hcl 4 Mg/2 Ml Vial) 4 mg IVPUSH Q8H PRN PRN Reason: Nausea and Vomiting Sodium Chloride (0.9 % Sodium Chloride Flush 3 Ml Syringe) 3 ml IVFLUSH QSHIFT [facility] Last Admin: 09/10/23 07:28 Dose: Not Given Allergies Allergies Allergy/AdvReac Type Severity Reaction Status Date / Time penicillin V Allergy Unknown Unknown Verified 09/06/23 10:35 Penicillins Allergy Unknown Unknown Verified 09/06/23 10:35 Eggs/Apples/Oats Allergy Unknown stomach Uncoded 08/22/23 13:36 ache Assessment & Plan Assessment & Plan (1) MDD (major depressive disorder): Status: Acute Code(s): F32.9 - Major depressive disorder, single episode, unspecified (2) Generalized anxiety disorder: Status: Acute Code(s): F41.1 - Generalized anxiety disorder Plan Consult placed to psychiatry for: depression, anxiety, medication adjustment. Recommendations: Continue Nortriptyline 50mg PO bedtime Continue Klonopin 0.25mg PO BID PRN anxiety DC Remeron Referral to outpatient psychiatrist and therapist. (Will refer pt to psychiatric outpatient consultation service, Nereyda Melendez NP) Ordered Nortriptyline level for tomorrow morning. If continues with confusion, may need to decrease Nortriptyline. Geriatric population may do better on shorter acting benzodiazepines. Total time managing care of this patient today _30___ minutes. Patient educated on: diagnosis, medication risk/benefits and therapeutic strategies Informed Consent: understands
[2023-09-10 15:38] VITALS: BP 141/67; PULSE 86; RESP 18; TEMP 36.2; O2SAT 97
[2023-09-10 19:53] VITALS: BP 143/65; PULSE 92; RESP 18; TEMP 36.3; O2SAT 97
[2023-09-10] MEDS: clonazePAM 0.5 MG TABLET 0.25 MG PO (20:16)
[2023-09-10] MEDS: Atorvastatin Calcium 80 MG TABLET PO (20:16)
[2023-09-10] MEDS: Nortriptyline HCl 25 MG CAPSULE PO (20:16)
[2023-09-10] MEDS: 0.9 % Sodium Chloride Flush 3 ML SYRINGE IVFLUSH (20:17)
[2023-09-11 03:21] VITALS: BP 130/62; PULSE 98; RESP 18; TEMP 36.2; O2SAT 95
[2023-09-11] MEDS: Levothyroxine Sodium 75 MCG TABLET PO (05:57)
[2023-09-11] MEDS: Omeprazole 20 MG CAPSULE.DR PO (05:57)
[2023-09-11 07:41] VITALS: BP 136/65; PULSE 97; RESP 18; TEMP 36.7; O2SAT 93
[2023-09-11] MEDS: 0.9 % Sodium Chloride Flush 3 ML SYRINGE IVFLUSH (07:51)
[2023-09-11] MEDS: Fidaxomicin 200 MG TABLET PO (07:51)
[2023-09-11] MEDS: Metoprolol Succinate ER 50 MG TAB.ER.24H PO (07:52)
[2023-09-11] MEDS: Apixaban 2.5 MG TABLET PO (07:52)
[2023-09-11] MEDS: Multivitamin TABLET 1 TAB PO (07:52)
--- NOTE | 2023-09-11 08:01 | PC.NURSE ---
Pt doing well. no c/o pain, A&Ox1, however reoriented to hospital environment. No c/o n/v, tolerating PO. Ambulating to the bathroom with standby assist. Up to chair. Possible d/c today.
[2023-09-11] MEDS: clonazePAM 0.5 MG TABLET 0.25 MG PO (08:51)
[2023-09-11 08:57] LABS: TSH reflex Free T4 4.17 uIU/mL (0.32-4.0)
[2023-09-11 09:37] LABS: Vitamin B12 490 pg/mL (200-900)
--- NOTE | 2023-09-11 09:51 | MHC.CM.PN ---
PER HOSPITALIST PT MEDICALLY CLEARED FOR DC HOME W/RESUMP OF FAMILY SUPPORT W/FAMILY FOR TRANSPORT. HOSPITALIST REQUESTS CM CONTACT [facility], CM CONTACTED MADISYN AT NUMBER ON FILE WHO SEEMS HESITANT ABOUT BRINGING PT HOME AND REPORTS SHE WILL BE STAYING W/HER AND PT'S SON ALE PT CANNOT BE ALONE AT NIGHT AND UNTIL THEY CAN GET HER INTO AN ASSISTED LIVING, MADISYN AWARE PT HAS BEEN SEEN BY PSYCH AND MED CHANGES MADE W/REF TO OUPT FOLLOW-UP, MADISYN REPORTS SHE WILL CONTACT ALE AND SEE WHO WILL BE COMING IN TO SEE PT/PICK HER UP. MADISYN PROVIDED W/CM CONTACT NUMBER AND WILL GIVE IT TO ALE WHO WILL BE CONTACTING CM TO SET UP DC.
--- NOTE | 2023-09-11 10:19 | PM.DS ---
DS: Providers Provider Date of Service: 09/11/23 Date of admission: 09/06/23 16:35 Primary care physician: Jerman Mendoza MD Consults: 09/06/23 16:35 Consult to Gastroenterology Routine Consulting Provider: Christian Castañeda Reason for consultation: Pancolitis, hx C.Diff, recent Abx usage for eval and rec. 09/10/23 09:32 Consult to Psychiatry Routine Consulting Provider: Psych Covering Reason for consultation: depression, anxiety, MEdications adjustment DS: Diagnosis Discharge Diagnosis (1) MDD (major depressive disorder): Status: Acute (2) Generalized anxiety disorder: Status: Acute (3) Toxic metabolic encephalopathy: Status: Acute (4) Sepsis: Status: Acute (5) Pancolitis: Status: Acute (6) Acute hypokalemia: Status: Acute (7) C. difficile colitis: Status: Acute DS: Summary Hospital Course Hospital Course: Admission note HPI An 83 years old lady with PMH of dementia, HTN, anxiety, severe , biliary drain for hx cholecystitis, Hx C.diff DVT on eliquis who presents to the hospital with abdominal pain and diarrhea. The patient reports being on oral Clindamycin for teeth infection earlier this week before she start feeling pain and nasuea with associated diarrhea and decrease PO intake. No chest pain, palpitations, SOB, vomiting or urinary symptoms with abdominal cramps. in ED CT Scan showed evidence of Pancolitis. She was started on Flagyl IV and Vanco PO and admitted. She had UGIB on Jul while on blood thinner requiring blood transfusion and EGD. Admitted for further evaluation and management. Hospital course The patient was admitted for treatment of sepsis secondary to acute Pancolitis as a result of recurrent C.Diff infection. blood cultures remained negative as Diarrhea improved while she was treated with IV Flagyl and PO Fidaxomicin for total of 10 days as she was evaluated by GI specialist. Tolerated diet well as diarrhea resolved. For Acute hypokalemia, replacement given with resolution. She developed breif acute Toxic metabolic encephalopathy Likely related to home medications , dementia and inpatient delerium responded well to Decreased Klonopin PRN and Decreased Mirtazapine doses. Nortriptyline level checked and still pending. Will continue same dose on discharge. She had Psychiatry evaluation who recommended DC Mirtazapine for now and to lower Klonipin as tolerated. 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 The patient coPay for DIFICID was 900$ so they opted for the second line Abx of Vancomycin for 10 more days. Continue Vancomycin for 10 more days You will need Prophylaxis for C.Diff with any future antibiotics prescription Discontinue Mirtazapine Lower Klonipin to 0.25 mg as tolerated (half tablet) To follow with outpatient psychiatrNereyda le Time Attestation Discharge Coordination Time (in mins): 38 Quality: Safe Use of Opioids Does Pt have an Active Cancer Diagnosis on the Problem List?: No Quality: Stroke Does the patient have a stroke diagnosis?: No Physical Exam Vital Signs: Vital Signs: Last Vital Signs Temp 98.1 F 09/11/23 07:41 Pulse 97 09/11/23 07:41 Resp 18 09/11/23 07:41 BP 136/65 09/11/23 07:41 Pulse Ox 93 09/11/23 07:41 O2 Del Method Room Air 09/11/23 07:41 BMI result Body Mass Index 25.0 Const: Other: Constitutional : Awake, interactive, not in distress Neck : Normal inspection, Supple Cardiovascular : RRR, no JVP, no lower extremity edema Respiratory : good bilateral air entry, no crackles, wheezes or rhonchi Gastrointestinal: soft, lax, Normal bowel sounds, no tenderness Skin : Warm, Dry Neurological : Alert & oriented to self and place, No focal deficit DS: Data Data Completed and Pending Labs on day of discharge: Laboratory Results - last 24 hr 09/11/23 08:04 Hold Purple Top SEE NOTE Vitamin B12 490 TSH 4.17 H Preliminary micro results at discharge 09/06/23 11:58 Blood Culture - Preliminary Blood - Venous No growth after 48 hours. 09/06/23 10:55 Blood Culture - Preliminary Blood - Venous No growth after 48 hours. Imaging Chest x-ray: Radiologist's impression: ITS Impressions Abdomen/Pelvis CT 09/06/23 14:36 IMPRESSION: 1. Diffuse colitis involving the entire colon likely inflammatory or infectious etiology. There is no pericolic abscess or free air. 2. There is a percutaneous placed cholecystostomy tube in a dilated gallbladder. There is punctate gas in the intrahepatic fissure. 3. Small hiatal hernia. Fleischner guidelines were followed. Discharge Plan Discharge Anticipated Discharge Date/Time: 09/11/23 10:10 Patient Disposition: Home Health Service Discharge Diagnosis: C.Diff colitis Referrals: [facility] [Outside] - 1 Week ([facility] Jerman Mendoza MD [Primary Care Provider] - 1 Week Rosy Melendez APRN [Nurse Practitioner] - 1 Week (REFERRAL PLACED BY [place] [facility] [place] Discharge Medications: New clonazepam 0.5 mg Tablet 0.25 mg PO Q8H PRN (Reason: Anxiety) Qty: 20 0RF vancomycin 125 mg capsule 125 mg PO QID Qty: 20 0RF Continued levothyroxine 75 mcg tablet 75 mcg PO DAILY Qty: 90 1RF metoprolol succinate 50 mg tablet extended release 24 hr 50 mg PO DAILY Qty: 30 0RF atorvastatin 80 mg tablet 80 mg PO BEDTIME Qty: 30 0RF pantoprazole 40 mg tablet,delayed release (DR/EC) 40 mg PO DAILY 30 Days Qty: 30 0RF cholecalciferol (vitamin D3) 125 mcg (5,000 unit) Capsule 125 mcg PO DAILY multivitamin Tablet 1 tab PO DAILY nortriptyline 50 mg capsule 50 mg PO BEDTIME Eliquis 2.5 mg tablet 2.5 mg PO BID Qty: 180 0RF Discontinued mirtazapine 15 mg Tablet 15 mg PO DAILY clonazepam [Klonopin] 0.5 mg tablet 0.5 mg PO Q8H PRN (Reason: Anxiety) Discharge Orders: Discharge Order (Routine); Ordered 09/11/23 Ordered By: Magdiel Clemente Diet: Advance to usual diet Activity on Discharge: As tolerated Stand Alone Forms: Patient Portal Discharge page Care Plan Goals: Read below Health Concerns: Read below Plan of Treatment: Read below Assessment: You were treated for colon infection w bacteria called C.Diff (Clostridium difficle) as a result of antibiotics usage. Treated with IV fluids, Dificid (Antibiotics specific for C.Diff) with good response over the course of hospital stay. You were also evaluated by psychiatry team for increase confusion and depression. Continue Vancomycin PO for 10 more days You will need Prophylaxis for C.Diff with any future antibiotics prescription Discontinue Mirtazapine Lower Klonipin to 0.25 mg as tolerated (half tablet) To follow with outpatient psychiatris , Pat Al Patient Instructions: Vancomycin (By mouth), C. Diff (Clostridioides Difficile) Infection (DC)
[2023-09-11 10:25] LABS: Folate 8.5 ng/mL (> or = 4.0)
[2023-09-11 11:24] LABS: Free T4 (Free Thyroxine) 1.13 ng/dL (0.71-1.85)
--- NOTE | 2023-09-11 16:52 | PC.NURSE ---
discharge reviewed with patients son also Markos. States understanding.
[2023-09-14 17:03] LABS: Nortriptyline 88 mcg/L (50-150)
== END 2023-09-11 16:53 | disposition home health service (06) | DRG 872 ==
LOC: HO.ED 15:55 → HO.EDOVER 17:02 → HO.S3 18:13
PROVIDERS: Registered Nurse; Admitting Provider Student in an Organized Health Care Education/Training Program; Emergency Provider Emergency Medicine; PCP Internal Medicine; Visit Provider Student in an Organized Health Care Education/Training Program
DX: A41.9 Sepsis, unspecified organism (principal); A04.71 Enterocolitis due to Clostridium difficile, recurrent; I10 Essential (primary) hypertension; F03.A0 Unspecified dementia, mild, without behavioral disturbance, psychotic disturbance, mood disturbance, and anxiety; F32.9 Major depressive disorder, single episode, unspecified; E87.6 Hypokalemia; E78.5 Hyperlipidemia, unspecified; F41.1 Generalized anxiety disorder; Z86.718 Personal history of other venous thrombosis and embolism; Z88.0 Allergy status to penicillin; Z79.01 Long term (current) use of anticoagulants; Z79.899 Other long term (current) drug therapy
CPT/HCPCS: 36415; 74177; 80048; 80076; 80335; 81001; 81003; 82607; 82746; 83605; 83690; 84439; 84443; 85025; 85027; 87040; 87086; 87324; 87493; 97162; 97530; 99285; J1836; J3480; J7120; Q9967

== ENCOUNTER → 2023-09-06 16:35 | Outpatient (BNV) | payer MEDICARE, SELFPAY | PROVIDERS: Admitting Provider Student in an Organized Health Care Education/Training Program; Emergency Provider Emergency Medicine; PCP Internal Medicine; Visit Provider Student in an Organized Health Care Education/Training Program | DX: A41.9 Sepsis, unspecified organism (principal); K51.00 Ulcerative (chronic) pancolitis without complications; F32.9 Major depressive disorder, single episode, unspecified; F41.1 Generalized anxiety disorder; G92.8 Other toxic encephalopathy; E87.6 Hypokalemia; A04.72 Enterocolitis due to Clostridium difficile, not specified as recurrent | CPT/HCPCS: 99223; 99232; 99233; 99239 ==

== ENCOUNTER → 2023-09-06 16:35 | Outpatient (BNV) | payer MEDICARE, SELFPAY | PROVIDERS: Admitting Provider Student in an Organized Health Care Education/Training Program; Emergency Provider Emergency Medicine; PCP Internal Medicine; Visit Provider Registered Nurse | DX: F32.0 Major depressive disorder, single episode, mild (principal); F41.1 Generalized anxiety disorder | CPT/HCPCS: 99222 ==

== ENCOUNTER → 2023-09-06 16:35 | Outpatient (BNV) | payer MEDICARE, SELFPAY | PROVIDERS: Admitting Provider Student in an Organized Health Care Education/Training Program; Emergency Provider Emergency Medicine; PCP Internal Medicine; Visit Provider Internal Medicine Gastroenterology | DX: K51.00 Ulcerative (chronic) pancolitis without complications (principal); A04.72 Enterocolitis due to Clostridium difficile, not specified as recurrent | CPT/HCPCS: 99222 ==

== ENCOUNTER 2023-09-17 14:04 | Outpatient (AMB) | payer MEDICARE, SELFPAY ==
--- NOTE | 2023-09-17 13:56 | MHC.OFFVISPS ---
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 she was seen by inpatient psychaitric benefits consultant IN HOME SALES REPRESENTATIVE Carole Gunderson who recommend stopping remeron at night and reecuing clonazepam due to acute delirium and confusion. She continues with clonazepam 0.25mg BID and Nortriptyline 50 mg at bedtime. Pt comes to appt with her daughter in law who is a primary child care lead teacher for pt. Pt ppresents irritable and easily tearful; she is very upset that her clonazepam dose was cut in half from 0.5mg BID to 0.25mg BID. She was cooperative with first 4 questions on the MOCA but refused to go further; she expressed frustration despite understanding and being capable of some of the tests. Pt focused on increasing the clonazpeam dose; she is withdrawn and irritable; she has poor short term memory. she reports lack of enjoyment and poor sleep; she denies SI or HI. Pt has a lock box at home with medications set up for daily doses that only opens when its time for a dose and she only has access to that dose; she had been taking meds in disorganized way never sure if she took or not and sometimes taking too much. Her daughter law tells me that pt has been in and out of the hospital since May 2023. She says pt needs cardiac surgey to replace a valve, but is too compromised to have the surgery. . she is on eliquis for her heart but it aggravated an ulcer and caused bleeding; pt needs gallbladder to be operated on but due to Eliquis can not so instead she has a biliary drain; they are waiting to hear from gastreoenterolgy for an appointment. They do have an appt with neurologist for dementia; Pt takes multivitamin and D3at home. Pt has been staying with family off and on. The family are investigating explosives truck driver care for pt at home or assisted living and says the decision will be made today. Past Psychiatric History: Pt reports hx of seeing a psychiatrist and therapist 20 years ago d/t having panic attacks ; she reports not having any in a long time . Pt stated, I was [age] when I moved to [place] with my . We moved away from my family and I started being nervous then. My doctor put me on Nortriptyline when my because I was depressed. It helped my mood. In the winter, I get sad because I can't do anything outside anymore since I'm 83 and can break things easily. When it's warm out, my son and I go [address] in the [place] . Pt reports she used to go to the [employer] prior to COVID but then stopped; she reports keeping busy by cleaning, reading, watching tv and doing cross word puzzles . Pt became tearful when discussing ; pt stated, I'm still not over him passing. I was with him since I was [age] . pt denies any hx of inpatient psychiatric hospitalizations. Pt does not have outpatient psychiatrist or therapist. No hx SIB/SA. Subjective Subjective Subjective Medication Compliance: Yes Side effects from medications: No Review of Systems Medical Review of Systems: unchanged Review of Systems Review of Systems Yes all other systems are reviewed and are negative Mental Status Exam Mental Status Exam Patient Appearance: Well Grooomed and Appropriate Patient Orientation: Person and Situation Level of Consciousness: Awake and Disoriented Patient Behavior: Appropriate, Crying (tearful), Uncooperative and Poor Eye Contact Mood Description: Anxious, Angry (irritable) and Sad Affect Description: Angry and Sad Patient Cognition Impaired: Yes Ability to Follow Directions: Good Speech Pattern: Difficulty Finding Words Memory Description: Immediate Impaired and Episodic Impaired Hallucinations: None Delusions: Not Present Thought Process: Intact and Goal Oriented Thought Content: positive for Goal Oriented and positive for Preoccupation (with clonazepam ) Judgement: Poor Results Reviewed Results Reviewed: diagnostics reviewed from recent hspitalization review of psych consult by Gracy Gunderson NP review of hospitalist notes and d/c summary review of [facility] notes from recent hospitalization Assessment and Plan Assessment & Plan (1) Generalized anxiety disorder: Status: Acute Code(s): F41.1 - Generalized anxiety disorder (2) Major depressive disorder, recurrent severe without psychotic features: Status: Acute Code(s): F33.2 - Major depressive disorder, recurrent severe without psychotic features Plan discussed the risks vs benefitts of clonazepam including expected benefits and alternatives; pt can not take SSRIs or SNRI given hx of internal bleeding and eliquis. increase clonazepam to 0.5mg at bedtime continue clonazepam 0.25 mg in am and may take an additional 0.25mg qd prn panic attack when with other people /family release singed to communicate with [facility] cardiology t/c placed to [facility] cardiology to disuccss option of increasing the nortriptyline give n cardiac history Medications: Changed From clonazepam 0.25 mg (1/2 x 0.5 mg) PO Q8H PRN 20 tabs 0RF Anxiety To clonazepam (1/2 x 0.5 mg) 0.25 mg orally take 0.25 mg in am and 0.5mg at bedtime and may take an additional 0. 25 mg midday as needed for severe anxiety/panic attack PRN; 60 tabs 0RF Anxiety Counseling and coordination of Care Pt. Self Management counseling: General coping skills Medication management counseling: Effectiveness, Side effects, Dosing range, Drug interaction and Adherence Diagnosis and Prognosis Counseling: Accuracy of diagnosis, Prognosis over time, Impact of diagnosis on life functions, Impact of family relationship, Problematic behaviors secondary to diagnosis and Adequacy of current interventions Details: I spent 90 minutes reviewing the record, seeing the patient and documenting in the medical record. Counseling provided to the patient/caregiver as outlined below. Addressed patient/caregiver concerns regarding current medication regime including effective adherence. Addressed patient/caregiver concerns regarding diagnosis and prognosis including accuracy of diagnosis, prognosis over time, impact of diagnosis. Addressed patient/caregiver concerns regarding impact of recent stressors. ON LICENSE OF [facility] Medical History (Updated 09/17/23 @ 15:46 by Rosy Melendez APRN) Pancolitis Cholecystitis C. difficile colitis UGIB (upper gastrointestinal bleed) Dementia Nonrheumatic aortic (valve) stenosis Generalized anxiety disorder Hypercholesterolemia Surgical History History of colonoscopy Family History Mother No problems noted. Father No problems noted. Social History Household Members: None Housing: House Do you presently have visiting nurse or other home services: No Alcohol intake: never Patient Tobacco Use Status: Never used Tobacco e-Cigarette/Vaping Use: Never Used Second Hand Smoke Exposure: No service: No Current occupational status: retired Cognitive needs: No Hearing needs: No Vision needs: Yes (glasses) Social History: Lives alone, stays with family frequently , ( 11 years ago), 2 children (both live in the area). Substance History: denies Trauma History: denies Coding Level of Care Code Psych Diag Eval w/Med (11708) Diagnoses Generalized anxiety disorder F41.1 Major depressive disorder, recurrent severe without psychotic features F33.2
--- OUTSIDE RECORDS SUMMARY | 2023-09-17 14:05 | XMS_ITS | Continuity of Care Document ---
Author Name Unknown Organization [facility] ter Address [address] [place] [address]- Care Team Providers Care Regional Guide Name Role Phone Kelly STOVER, Jerman De León Primary Care Physic gerhard Encounter [facility] ACCT R [id number] Date(s): 07/18/23 - 07/20/[address] [address]- Encounter Diagnosis DVT of lower limb, acute(Final) - 07/18/23 Bakers cyst(Final) - 07/18/23 Discharge Disposition: A-Transfer SNF Attending Physician: Tyra Dunaway MD Admitting Physician: Tyra Dunaway MD Referring Physician: Not on Staff, Referring MD Allergies, Adverse Reactions, Alerts Substance Reaction Severity Status penicillin 1 Active 1doesn't remember reaction Immunizations Given and Recorded Vaccine Date Status Refusal Reason SARS-CoV-2 (COVID-19) mRNA BNT-162b2 vac 05/01/21 Recorded SARS-CoV-2 (COVID-19) mRNA BNT-162b2 vac 08/31/20 Recorded SARS-CoV-2 (COVID-19) mRNA BNT-162b2 vac 08/08/20 Recorded Medications aspirin 81 mg oral delayed release tablet 81 mg, 1, tablet, By Mouth, Daily, # 30 tablet, Refills 0, Maintenance, 08/14/22 6:16:00 EST, Partial fill upon patient request if the prescription is for a schedule II opioid drug. Start Date: 08/14/22 Status: Ordered cholecalciferol 1000 intl units oral tablet 1 tablet = 25 mcg, By Mouth, Daily, # 30 tablet, 0 Refills, Maintenance, 08/14/22 6:21:00 EST, Tablet, Partial fill upon patient request if the prescription is for a schedule II opioid drug. Start Date: 08/14/22 Status: Ordered clonazePAM 0.5 mg oral tablet 1 tablet = 0.5 mg, By Mouth, 2 times a day, # 4 tablet, 0 Refills, Maintenance, 06/20/23 11:25:00 EST, Tablet, Partial fill upon patient request if the prescription is for a schedule II opioid drug. Start Date: 06/20/23 Stop Date: 06/22/23 Status: Ordered Coreg 25 mg oral tablet 12.5 mg, 0.5, tablet, By Mouth, 2 times a day, Pt is on Nebivolol 10 mg po daily. Conversion is Coreg 25 bid. May adjust dose per evidence., # 30 tablet, Refills 0, Tot. Refills 0, Maintenance, 06/20/23 10:31:00 EST, Route to Pharmacy Electronically,... Start Date: 06/20/23 Stop Date: 07/20/23 Status: Ordered Docusate Sodium Capsule 100 mg, 1, capsule, By Mouth, 2 times a day, PRN, Refills 0, Maintenance, Constipation, 06/20/23 10:28:00 EST, Partial fill upon patient request if the prescription is for a schedule II opioid drug. Start Date: 06/20/23 Status: Ordered Eliquis Starter Pack 5 mg oral tablet 2 tablet = 10 mg, By Mouth, 2 times a day, followed by 1 tablet by mouth twice daily for 23 days; as directed on package labeling; will need to follow up with PCP for refills, # 74 tablet, 0 Refills,Maintenance, 07/17/23 12:55:00 EST, [facility]... Start Date: 07/17/23 Stop Date: 07/24/23 Status: Ordered levothyroxine 75 mcg (0.075 mg) oral tablet 1 tablet = 75 mcg, By Mouth, Daily, # 60 tablet, 0 Refills, Maintenance, 08/14/22 6:20:00 EST, Tablet, Partial fill upon patient request if the prescription is for a schedule II opioid drug. Start Date: 08/14/22 Status: Ordered nortriptyline 50 mg oral capsule 50 mg, 1, capsule, By Mouth, Daily, Refills 0, Maintenance, 08/14/22 6:17:00 EST, Partial fill uponpatient request if the prescription is for a schedule II opioid drug. Start Date: 08/14/22 Status: Ordered oxyCODONE 5 mg oral tablet 5 mg, 1, tablet, By Mouth, Every 6 hours, PRN, # 12 tablet, Refills 0, Tot. Refills 0, Acute 07/23/23 0:00:00 EST, as needed for pain, 07/20/23 12:13:00 EST, Print Requisition, Partial fill upon patient request if the prescription is for a schedule II... Start Date: 07/20/23 Stop Date: 07/23/23 Status: Ordered oxyCODONE 5 mg oral tablet 2.5 mg, By Mouth, Every 6 hours, PRN, for 4 days, # 8 tablet, Refills 0, Tot. Refills 0, Acute 07/21/23 12:54:00 EST, Pain , Moderate, 07/17/23 12:54:00 EST, Route to Pharmacy Electronically, [facility], Partial fill upon patient request... Start Date: 07/17/23 Stop Date: 07/21/23 Status: Ordered oxyCODONE 5 mg oral tablet 2.5 mg, Tablet, By Mouth, Every 6 hours, PRN for Pain , Severe, Routine, 07/18/23 17:30:00 EST Start Date: 07/18/23 Stop Date: 07/20/23 Status: Discontinued simethicone 80 mg oral tablet, chewable 80 mg, 1, tablet, Chew, 3 times a day, PRN, for 14 days, # 36 tablet, Refills 0, Tot. Refills 0, Acute 07/31/23 12:56:00 EST, Gas, 07/17/23 12:56:00 EST, Route to Pharmacy Electronically, [facility], Partial fill upon patient request if... Start Date: 07/17/23 Stop Date: 07/31/23 Status: Ordered simvastatin 40 mg oral tablet 40 mg, 1, tablet, By Mouth, Daily at bedtime, # 30 tablet, Refills 0, Maintenance, 08/14/22 6:19:00EST, Partial fill upon patient request if the prescription is for a schedule II opioid drug. Start Date: 08/14/22 Status: Ordered Super B Complex Vitamin B Complex oral tablet 1 tablet, By Mouth, Daily, # 30 tablet, 0 Refills, Maintenance, 08/14/22 6:22:00 EST, Tablet, Partial fill upon patient request if the prescription is for a schedule II opioid drug. Start Date: 08/14/22 Status: Ordered vancomycin 125 mg oral capsule 1 capsule = 125 mg, By Mouth, Every 6 hours, for 4 days, # 16 capsule, 0 Refills, Acute 07/24/23 12:15:00 EST, 07/20/23 12:15:00 EST, Capsule, Partial fill upon patient request if the prescription isfor a schedule II opioid drug. Start Date: 07/20/23 Stop Date: 07/24/23 Status: Ordered vancomycin 125 mg oral capsule 1 capsule = 125 mg, By Mouth, Every 6 hours, for 7 days, # 28 capsule, 0 Refills, Acute 07/24/23 12:54:00 EST, 07/17/23 12:54:00 EST, Capsule, [facility], Partial fill upon patient request if the prescription is for a schedule II opioid... Start Date: 07/17/23 Stop Date: 07/24/23 Status: Ordered Problem List Condition Confirmation Course Effective Dates Status H ealth Status Informant Anxiety Confirmed Active HTN (hypertension) Confirmed Active Hypothyroidism Confirmed Active Left main coronary artery disease Confirmed Active Results Orders for Microbiology Reports Name Date Blood Culture 07/18/23 Blood Culture #2 07/18/23 Microbiology Reports TEST:Blood Culture STATUS:Unauthenticated BODY SITE: SOURCE:Blood COLLECTED DATE/TIME:07/18/23 10:47 PM Blood Culture SPECIMEN DESCRIPTION : BLOOD NO SITE SPECIAL REQUESTS : NONE CULTURE : NO GROWTH AFTER 24 HOURS REPORT STATUS : PRELIMINARY REPORT TEST:Blood Culture, Second Order STATUS:Unauthenticated BODY SITE: SOURCE:Blood COLLECTED DATE/TIME:07/18/23 10:47 PM Blood Culture, Second Order SPECIMEN DESCRIPTION : BLOOD NO SITE SPECIAL REQUESTS : NONE CULTURE : NO GROWTH AFTER 24 HOURS REPORT STATUS : PRELIMINARY REPORT Radiology Reports * Exam Date Time Procedure Performing Provider Status 07/19/23 3:40 AM Chest 2 Views Frontal and Lat Arianna Chavez; Auth (Verified) Notes: (Chest 2 Views Frontal and Lat) Reason For Exam: Shortness of Breath, Fever;Other: RESULT: Chest 2 Views Frontal and Lat Examination: Chest performed on 07/19/2023. History: DVT. Unable to walk. Shortness of breath. Findings: Frontal and lateral views of the chest are compared to a prior study dated 06/16/2023. The cardiac silhouette is at the upper limits of normal for size. Trace pleural effusions are noted. The osseous and soft tissue structures are unremarkable. A cholecystostomy tube is seen. Impression: Trace pleural effusions. WSN: [id number] Ordering Physician: Nitza Teixeira MD Dictated By: Kelly Mata MD Dictated Date/Time: 07/19/23 7:26 am Reviewed By: Kelly Mata MD Signed By: Kelly Mata MD Signed Date/Time: 07/19/23 7:26 am Transcribed By: BRANDIN Transcribed Date/Time: 07/19/23 7:25 am * Exam Date Time Procedure Performing Provider Status 07/18/23 10:[address] Head/Brain W/O Contrast Samantha Mcgee; Auth (Verified) Notes: (CT Head/Brain W/O Contrast) Reason For Exam: Headache(s) RESULT: CT Head/Brain W/O Contrast CT Head/Brain W/O Contrast INDICATION: Hx of Present Illness: Pt with recently placed joni tube was diagnosed with R DVT and discharged to home. VNA nurse found pt today to be unable to walk and is recommending rehab. Pt alsowith + C diff diagnosis Sunday; Reason: Headache(s); Clinical Question(s): Hematoma; Order Comment: TECHNIQUE: Noncontrast head CT using axial technique and reconstructed in axial and coronal planes.Iterative reconstruction techniques are used to optimize dose and image quality. CTDIvol Head: 48.30 mGy, DLP Head: 773 mGy*cm. COMPARISON: None. FINDINGS: Application Chemist view findings, lines and tubes: None. BRAIN AND EXTRA-AXIAL SPACES: No parenchymal hemorrhage, midline shift, or mass effect. Mccain-white matter differentiation is wellpreserved. No acute infarct. Ventricles, sulci, and basilar cisterns are normal. Mild low-density white matter changes. No subarachnoid hemorrhage. No subdural or epidural collection. CALVARIUM, SKULL BASE, AND SOFT TISSUES: No fractures or suspicious bony lesions. The paranasal sinuses and mastoid air cells are clear. Visualized orbits and globes are intact. The extracranial soft tissues are unremarkable. IMPRESSION: No acute intracranial pathology. WSN: [id number] Ordering Physician: Nitza Teixeira MD Dictated By: Emil Joy MD Dictated Date/Time: 07/18/23 10:38 p Reviewed By: Emil Joy MD Signed By: Emil Joy MD Signed Date/Time: 07/18/23 10:38 pm Transcribed By: BRANDIN Transcribed Date/Time: 07/18/23 10:37 pm Vital Signs Most recent to oldest [Reference Range]: 1 2 3 Oxygen Saturation [94-100 %] 96 % (07/20/23 12:22 PM) 98 % (07/20/23 9:54 AM) 99 % (07/20/23 6:34 AM) Pulse Rate [55-90 bpm] 82 bpm (07/20/23 12:22 PM) 87 bpm (07/20/23 9:54 AM) 87 bpm (07/20/23 6:34 AM) Blood Pressure [90-138/55-84 mm Hg] 133/70mm Hg (07/20/23 12:22 PM) 165/73mm Hg *H* (07/20/23 9:54 AM) 162/78mm Hg *H* (07/20/23 6:34 AM) Respiratory Rate [16-30 br/min] 18 br/min (07/20/23 12:22 PM) 14 br/min *L* (07/20/23 9:57 AM) 16 br/min (07/20/23 9:54 AM) Temperature [96.8-100.4 DegF] 98.0 DegF (07/20/23 9:54 AM) 97.8 DegF (07/20/23 4:27 AM) 97.9 DegF (07/20/23 1:49 AM) Mode of Delivery (Oxygen) Room air (07/20/23 12:22 PM) Room air (07/20/23 9:54 AM) Room air (07/20/23 6:34 AM) Blood pressure sites Arm, left (07/20/23 12:22 PM) Arm, left (07/20/23 9:54 AM) Arm, left (07/20/23 6:34 AM) Temperature Route Oral (07/20/23 9:54 AM) Oral (07/20/23 4:27 AM) Oral (07/20/23 1:49 AM) Social History Social History Type Response Smoking Status Never (less than 100 in lifetime);Former smoker, quit more than 30 days ago entered on: 06/17/23 Sex Note * Tyra Dunaway MD: PERFORM, SIGN, VERIFY Event Display: Patient Education Handout Authored Date: [id number] * Tyra Dunaway MD: PERFORM Event Display: Patient Education Leaflets Authored Date: [id number] Diaz???s Cyst ?? [id number] Diaz???s Cyst You have a Diaz???s cyst. This is a lump or bulge in the back of your knee. It's caused when extrajoint fluid flows into a small sac behind the knee. The extra fluid collects here because arthritisor a torn cartilage irritates the knee joint. A small Diaz???s cyst often has no symptoms. A larger cyst can cause some knee pain or a feeling of pressure behind your knee when you try to fully straighten or bend that joint. A Diaz???s cyst can leak, leading fluid to move down into your lower leg. This causes swelling, pain, and redness. Treatment may involve draining the extra fluid. Or medicine may be injected to reduce redness and swelling. If the extra fluid is caused by a torn cartilage, then surgery to repair the cartilage may be the best treatment option. If arthritis is the cause, and it doesn't get better with treatment, surgery may need to address the arthritis and cyst. Home care ??? If you have knee pain, stay off the affected leg as much as possible until the pain eases. ??? Apply an ice pack to the painful area for??up to??20 minutes. Do this every??3 to 6??hours??for the first??24 to 48 hours. Keep using ice packs 3 to 4 times a day for the next few days,??as needed for pain. To make an ice pack, put ice cubes in a plastic??bag that seals at the top. Wrap the bag in a??clean, thin??towel or cloth before using it. Never put ice or an ice pack directly on the skin. ??? If you were given a??imyc-vyv-ksoy??knee brace, you may open the brace to apply ice. Unless told otherwise, you may also remove the brace to bathe and sleep. ??? You may use??likk-nqr-spdefwi pain medicine, like acetaminophen or ibuprofen, to control pain unless another medicine was prescribed. Talk with your provider before using these medicines if you have chronic liver or kidney disease or have ever had a stomach ulcer or gastrointestinal bleeding. ? If crutches or a walkerhave been advised, don???t put your full weight on your injured leg until you can do so without pain. Check with your provider before returning to sports or full work duties. ?? Follow-up care Follow up with your healthcare provider in 1 to 2 weeks, or as advised. If X-rays were taken,??you'll be told of any new findings that may affect your care. ?? When to get medical advice Call your healthcare provider right away if any of these take place: ??? Toes or foot become swollen, cold, blue, numb, or tingly ??? Pain or swelling increases ??? Warmth or redness appears over theknee ??? Redness, swelling, or pain starts in the calf or lower leg ??? Fever of 100.4??F (38??C) or higher, or as directed by your provider ??? Chills ?? Last Reviewed Date: 2021 ?? [id number] [employer]. All rights reserved. This information is not intended as a substitute for professional medical care. Always follow your healthcare professional's instructions. ?? * Gume STOVER, Tyra Watkins: PERFORM Event Display: Patient Education Leaflets Authored Date: [id number] Acute Pain, Uncertain Cause ?? [id number] Acute Pain, Uncertain Cause Pain can be caused by many conditions that range from very minor to very serious. In some cases, though, pain comes and goes with no apparent cause. We were not able to find the exact cause for your pain. At this time there is no sign of any serious illness causing your pain. More tests may be needed to determine the cause. In many cases, pain like this goes away by itself. Home care Take any medicines as prescribed. If another medicine was not prescribed for pain, you can take an kzsb-uaf-oycywtj pain medicine such as ibuprofen or acetaminophen. Use these as directed on the label. Talk with your healthcare provider before taking dtmx-yda-qramtxf pain medicine if you have a history of kidney or liver problems or bleeding in the stomach, or have heart disease. ?? Follow-up care Follow up with your??healthcare provider??or our staff as directed. ?? When to seek medical advice Call your healthcare provider for any of the following: ??? Pain changes in pattern ??? Pain doesn't lessen or gets worse ??? New symptoms appear ??? Fever??of 100.4??F (38??C) or higher,??or as directed by your healthcare provider ?? Last Reviewed Date: 2021 ?? 1989-2071 [employer]. All rights reserved. This information is not intended as a substitute for professional medical care. Always follow your healthcare professional's instructions. ?? * Celina Myers: PERFORM, SIGN, VERIFY Event Display: Case Management Discharge Plan Authored Date: [id number] Patient: JHONNY ADAM Age: 83 years Sex: Female : 1940 Associated Diagnoses: None Author: Celina Myers Discharge Plan Case Management Discharge Plan : Case Management Discharge Plan Data 07/19/2023 16:12 EST Discharge Level of Care at Discharge [facility] facility Discharge Nursing Homes/Rehab Facilities [facility] Name of Agency #1 [facility] Service Categories #1 Physical Therapy, Intermediate Service Comments #1 You are being discharged to [facility] for PT/SN Patient Care team information Care Team Personnel Name: Howie Brown RN Position: S RN Member Role: Primary Care Nurse Name: Arianna Cali RN Position: [facility] RN Member Role: Primary Care Nurse Name: Bhavana Camacho RN Position: S RN Member Role: Primary Care Nurse Name: Shannon Weeks RN Position: S RN Member Role: Primary Care Nurse Name: Gracy Wu RN Position: [facility] RN Member Role: Primary Care Nurse Name: Alma Gray RN Position: [facility] RN Member Role: Primary Care Nurse Name: Luana Odonnell RN Position: [facility] RN Member Role: Primary Care Nurse Name: Bebeto Gallegos RN Position: [facility] RN Member Role: Primary Care Nurse Name: Kelly STOVER, Jerman De León Position: Reference Physician Member Role: PCP Address: Address: [address] [place], [place] - [place] Care Team Related Persons Name: MADISYN PHILLIP Address: home [address], [place] Name: ALE ADAM Address: home [address], [place] Name: ARTEM ADAM Address: home [facility]
--- OUTSIDE RECORDS SUMMARY | 2023-09-17 14:05 | XMS_ITS | Continuity of Care Document ---
Author Name Unknown Organization [facility] Address [address] [place] [id number]- Care Team Providers Care Director Surgical Name Role Phone Kelly STOVER, Jerman De León Primary Care Physic gerhard Encounter [facility] Date(s): 06/17/23 - 06/20/[address] [address]- Discharge Disposition: A-D/C Home Attending Physician: Ericka Pérez MD Admitting Physician: Zuleika STOVER, Annemarie Rodriguez Referring Physician: Not on Staff, Referring MD Allergies, Adverse Reactions, Alerts Substance Reaction Severity Status penicillin 1 Active 1doesn't remember reaction Medications amoxicillin-clavulanate 875 mg-125 mg oral tablet 1 tablet, By Mouth, 2 times a day, for 7 days, Patient has no allergy to penicillin already taking medication in the hospital, # 14 tablet, 0 Refills, Acute 06/27/23 10:30:00 EST, 06/20/23 10:30:00 EST, Tablet, [facility], Partial fill u... Start Date: 06/20/23 Stop Date: 06/27/23 Status: Ordered aspirin 81 mg oral delayed release tablet [...] Status: Ordered Coreg 25 mg oral tablet 25 mg, By Mouth, 2 times a day, Pt is on Nebivolol 10 mg po daily. Conversion is Coreg 25 bid. May adjust dose per evidence., # 60 tablet, Refills 0, Tot. Refills 0, Maintenance, 06/20/23 10:31:00 EST, Route to Pharmacy Electronically, [facility] Start Date: 06/20/23 Stop Date: 07/20/23 Status: Ordered Coreg 25 mg oral tablet 25 mg, Tablet, By Mouth, Hold for: SBP less than 100 or HR less than 60, Pt is on Nebivolol 10 mg po daily. Conversion is Coreg 25 bid. May adjust dose per evidence., 06/20/23 9:00:00 EST Start Date: 06/20/23 Stop Date: 06/20/23 Status: Completed Docusate Sodium Capsule 100 mg, 1, capsule, By Mouth, 2 times a day, PRN, Refills 0, Maintenance, Constipation, 06/20/23 10:28:00 EST, Partial fill upon patient request if the prescription is for a schedule II opioid drug. Start Date: 06/20/23 Status: Ordered levothyroxine 75 mcg (0.075 mg) [...] 5 mg, 1, tablet, By Mouth, Every 8 hours, PRN, for 3 days, # 10 tablet, Refills 0, Tot. Refills 0, Acute 06/24/23 7:48:00 EST, for pain, 06/21/23 7:48:00 EST, Route to Pharmacy Electronically, [facility], Partial fill upon patient reques... Start Date: 06/21/23 Stop Date: 06/24/23 Status: Ordered simvastatin 40 mg oral tablet [...] opioid drug. Start Date: 08/14/22 Status: Ordered Results Orders for Microbiology Reports Name Date Anaerobic Culture 06/19/23 Wound Deep Culture w/ Gram Smear (DEEP W OUND CULTURE) 06/19/23 Microbiology Reports TEST:Anaerobic Culture STATUS:Unauthenticated BODY SITE: SOURCE:ABSCES COLLECTED DATE/TIME:06/19/23 2:22 PM Anaerobic Culture SPECIMEN DESCRIPTION : ABSCESS ABDOMEN SPECIAL REQUESTS : NONE CULTURE : NO ANAEROBES ISOLATED SO FAR. REPORT STATUS : PRELIMINARY REPORT TEST:Deep Wound Culture STATUS:Unauthenticated BODY SITE: SOURCE:ABSCES COLLECTED DATE/TIME:06/19/23 2:22 PM Deep Wound Culture SPECIMEN DESCRIPTION : ABSCESS ABDOMEN SPECIAL REQUESTS : NONE GRAM STAIN : 4+ POLYMORPHONUCLEAR LEUKOCYTES 2+ GRAM POSITIVE COCCI REPORT STATUS : PRELIMINARY REPORT Radiology Reports * Exam Date Time Procedure Performing Provider Status 06/19/23 3:38 PM IR End of Case Report Auth (Verified) IR End of Case Report * Exam Date Time Procedure Performing Provider Status 06/19/23 3:[address] Eric Tolbert; Auth (Verified) Notes: (US Guide Needle Place) Reason For Exam: cholecystitis US Guide Needle Place Patient: DENISE SHARP Study Date: 06/19/2023 Performing: Leonor Wray MD Referring: : 1940 Age: 83 Gender: FEMALE Pre-procedure diagnosis and Indication: Acute cholecystitis. Aortic stenosis. Exam: Patient admitted with abdominal pain. CT findings suspicious for cholecystitis. HIDA scan positive for cystic duct obstruction/cholecystitis. No Delgado sign. ANESTHESIA: Local anesthesia and I.V. conscious sedation supervised by Dr. Wray using Fentanyl and Versed from 1600 to 1620 hours using 50mcg of Fentanyl and 1 mg of Versed. The patient was independently monitored by the IR nurse. Procedure: Informed consent was obtained. A limited sonogram of the right upper quadrant was performed. A suitable site was identified, marked, prepped and draped in standard fashion. Using ultrasound guidance, a 19-gauge introducer needle was advanced into the gallbladder lumen and exchanged out over a guidewire for an 8.5 Czech resolve locking drainage catheter the catheter was secured in place using. 2-0 Ethilon sutures and maintained to gravity drainage. A 20 cc sample of thick cloudy bilious fluid was aspirated and sent for cultures. Specimens/samples: Bilious fluid sent for requested studies. Findings: Gallbladder wall thickening, pericholecystic fluid, biliary sludge. Insensate gallbladder suggestive of necrosis.Cholecystostomy tube placed as above. Impression: Ultrasound-guided cholecystostomy tube placement. Recommendations: Catheter needs to remain in place for minimum of 4 weeks to allow for tract maturation unless there is a cholecystectomy in that time frame. Outpatient follow-up with otm consultant surgeon of record to guide next steps, be it catheter removal or cholecystectomy or both. Signed By Leonor Wray MD On 06/19/2023 16:51:41 Leonor Wray MD Dictated By: Leonor Wray MD Dictated Date/Time: 06/19/23 3:38 pm Reviewed By: Leonor Wray MD Signed By: Leonor Wray MD Signed Date/Time: 06/19/23 3:38 pm Transcribed By: KAYA Transcribed Date/Time: 06/19/23 3:38 pm * Exam Date Time Procedure Performing Provider Status 06/19/23 10:52 AM NM HIDA Scan W/O Eje ction Fraction Tracy Lezama; Auth (Verified) Notes: (NM HIDA Scan W/O Ejection Fraction) Reason For Exam: Abdominal Pain RESULT: NM HIDA Scan W/O Ejection Fraction Exam: NM Hepatobiliary scan History: Upper abdominal pain and distended and thickened gallbladder on CT with filling defects and stranding. Technique: The patient was injected intravenously with 9.9 mCi of Tc99m Mebrofenin and dynamic imaging of the abdomen in the anterior view was obtained for 1 hour. At 1 hour, 2 mg of morphine was administered IV and additional imaging was performed for 30 minutes. Comparison studies: CT abdomen pelvis 06/17/2023. Findings: There is prompt hepatic flow, uptake and excretion. By one hour, there is normal visualization of the common duct and small bowel. There is no visualization of the gallbladder. Additional imaging following morphine demonstrated no activity within the gallbladder fossa. Impression: Scintigraphic findings are compatible with cystic duct obstruction and with acute cholecystitis in this clinical setting. An actionable message (Red) has been communicated via the [employer] system on 06/19/2023 1:48 PM, Message ID [id number]. WSN: [id number] Ordering Physician: Rosi Andrade Dictated By: Arcadio Bhatia MD Dictated Date/Time: 06/19/23 1:48 pm Reviewed By: Arcadio Bhatia MD Signed By: Arcadio Bhatia MD Signed Date/Time: 06/19/23 1:48 pm Transcribed By: BRANDIN Transcribed Date/Time: 06/19/23 1:48 pm * Exam Date Time Procedure Performing Provider Status 06/19/23 12:00 AM IR End of Case Report Aut h (Verified) IR End of Case Report * Exam Date Time Procedure Performing Provider Status 06/17/23 7:[address] Abd/Pelvis W/ IV Contrast Only Nini Gan; Auth (Verified) Notes: (CT Abd/Pelvis W/ IV Contrast Only) Reason For Exam: LLQ abdominal pain;Other: RESULT: CT Abd/Pelvis W/ IV Contrast Only CT Abd/Pelvis W/ IV Contrast Only Hx of Present Illness: CP starting in the middle of the night. reports pain still present. Indicates pain to upper abdomen diaphragm. Hx of aortic stenosis, needs valve replacement; Reason: Other:; LLQ abdominal pain; Clinical Question(s): Abscess; Order Comment: TECHNIQUE: Helical CT through the abdomen and pelvis with IV contrast formatted in 3 planes. 100 ccof Omnipaque 300 was administered intravenously. This study was performed without oral contrast. Weight-based protocol using automatic tube modulation was used to optimize exposure parameters. COMPARISON: CT angiogram abdomen and pelvis 10/31/2022 FINDINGS: TOPOGRAM, LINES AND TUBES: None. LOWER THORAX: Mild basilar subsegmental atelectasis. Visualized heart is normal in size. DIAPHRAGM: Unremarkable. LIVER: Normal. GALLBLADDER: Gallbladder is distended with edematous wall thickening, mural hyperemia, sludge and pericholecystic fluid. BILE DUCTS: No biliary ductal dilatation. SPLEEN: Normal in size. 0.4 cm hypodensity, too small to characterize, presumably a cyst (series 201 image 13). 0.7 cm ill-defined hyperdensity suggestive of hemangioma (series 201 image 20), unchanged. PANCREAS: Fatty atrophy throughout the pancreatic head. No pancreatic ductal dilatation. ADRENAL GLANDS: No nodules. KIDNEYS AND URETERS: No hydronephrosis. Simple left renal cysts measuring up to 3.8 cm at the lowerpole. Few subcentimeter bilateral renal hypodensities, too small to characterize, but likely representing cysts. No suspicious mass. BLADDER: Bladder is normal. REPRODUCTIVE: Persistent hypodense thickening of endometrial stripe measuring 1.1 cm, similar to prior. STOMACH AND BOWEL: Stomach is collapsed. No bowel obstruction. Mild fat stranding surrounding the descending duodenum, presumably reactive to gallbladder inflammation. Colonic diverticulosis without acute diverticulitis. APPENDIX: Not seen, but no evidence of appendicitis. PERITONEUM AND RETROPERITONEUM: No pneumoperitoneum or loculated fluid collection. No omental or mesenteric mass. LYMPH NODES: No lymphadenopathy. VESSELS: Severe atherosclerotic calcification. Abdominal aorta is nonaneurysmal. No venous thrombosis. ABDOMINAL WALL: Unremarkable. BONES: Multilevel degenerative changes involve the spine. No acute osseous abnormality. IMPRESSION: 1. Acute cholecystitis. 2. Presumably reactive descending duodenitis. 3. Diverticulosis without acute diverticulitis. 4. Persistent thickening of endometrial stripe measuring 1.1 cm. Given postmenopausal status, follow-up outpatient pelvic ultrasound recommended. An actionable message ([place]) has been communicated via the [employer] on 06/17/2023 8:00 PM, Message ID [id number]. WSN: [id number] Ordering Physician: Bob Hennessy Dictated By: Inocencio Jean MD Dictated Date/Time: 06/17/23 8:01 pm Reviewed By: Inocencio Jean MD Signed By: Inocencio Jean MD Signed Date/Time: 06/17/23 8:01 pm Transcribed By: BRANDIN Transcribed Date/Time: 06/17/23 7:51 pm * Exam Date Time Procedure Performing Provider Status 06/17/23 8:32 AM Chest 2 Views Frontal and Lat Jania , Gisselle; Auth (Verified) Notes: (Chest 2 Views Frontal and Lat) Reason For Exam: Chest Pain;Other: RESULT: Chest 2 Views Frontal and Lat PA and lateral chest dated June 17, 2023. No prior studies are available. HISTORY: Chest pain. FINDINGS: The cardiac silhouette is within normal limits for size. Mural calcifications are noted in the aorta. No airspace infiltrate or pleural effusion is identified. Degenerative changes are noted in the spine. IMPRESSION: No evidence of acute pulmonary disease. Examination [id number]. Thank you for allowing me to participate in the care of this patient. WSN: [id number] Ordering Physician: Jose Nguyen Dictated By: Kennedy Zhao MD Dictated Date/Time: 06/17/23 8:44 am Reviewed By: Kennedy Zhao MD Signed By: Kennedy Zhao MD Signed Date/Time: 06/17/23 8:44 am Transcribed By: BRANDIN Transcribed Date/Time: 06/17/23 8:44 am Vital Signs Most recent to oldest [Reference Range]: 1 2 3 Height 157 cm (06/20/23 10:32 AM) 157 cm (06/20/23 7:01 AM) 157 cm (06/20/23 4:07 AM) Weight 69 kg (06/18/23 12:57 PM) 68.2 kg (06/18/23 6:24 AM) 68.2 kg (06/17/23 8:40 AM) Oxygen Saturation [94-100 %] 99 % (06/20/23 10:32 AM) 95 % (06/20/23 7:01 AM) 97 % (06/20/23 4:07 AM) Pulse Rate [55-90 bpm] 72 bpm (06/20/23 10:32 AM) 68 bpm (06/20/23 8:48 AM) 69 bpm (06/20/23 7:01 AM) Body Mass Index [18.5-24.99 kg/m2] 27.99 kg/m2 *H* (06/18/23 12:57 PM) 27.67 kg/m2 *H* (06/18/23 6:24 AM) Blood Pressure [90-138/55-84 mm Hg] 124/58mm Hg (06/20/23 10:32 AM) 102/49mm Hg (06/20/23 8:48 AM) 106/40mm Hg (06/20/23 7:01 AM) Respiratory Rate [16-30 br/min] 20 br/min (06/20/23 10:32 AM) 20 br/min (06/20/23 7:01 AM) 18 br/min (06/20/23 4:07 AM) Temperature [96.8-100.4 DegF] 97.9 DegF (06/20/23 10:32 AM) 97.7 DegF (06/20/23 7:01 AM) 97.7 DegF (06/20/23 4:07 AM) Mode of Delivery (Oxygen) Room air (06/20/23 10:32 AM) Room air (06/20/23 7:01 AM) Room air (06/20/23 4:07 AM) Blood pressure sites Arm, left (06/20/23 10:32 AM) Arm, right (06/20/23 7:01 AM) Arm, left (06/20/23 4:07 AM) Temperature Route Oral (06/20/23 10:32 AM) Oral (06/20/23 7:01 AM) Oral (06/20/23 4:07 AM) Dry Weight 69 kg (06/18/23 12:57 PM) 68.2 kg (06/18/23 6:24 AM) 68.2 kg (06/17/23 8:40 AM) Weight Obtained Via Bed scale (06/18/23 12:57 PM) Dry Weight Obtained Via Bed scale (06/18/23 12:57 PM) Patient/family stated (12/31/23 8:40 AM) Social History Social History Type Response Smoking Status Never (less than 100 in lifetime);Former smoker, quit more than 30 days ago entered on: 06/17/23 Sex Consult note * Bay STOVER, Abilio Hayden: PERFORM Event Display: Consult Authored Date: [id number] Patient: ??DENISE SHARP ? Age:??83 Years?Sex:??Female?:??1940?? Denise Sharp is an 83-year-old female with past medical history of aortic stenosis and left maincoronary artery disease on aspirin, hyperlipidemia, hypertension, hypothyroidism and anxiety who presented to the emergency department with a few days of epigastric abdominal pain.?? Her vital signs are within normal limits.?? Lab work does not demonstrate any evidence of leukocytosis.?? Her high-sensitivity troponin was elevated to 21 and an EKG was done which demonstrates sinus rhythm at [address] segment elevations or depressions to suggest acute ischemia.?? A CT abdomen pelvis was performed which demonstrates findings suggestive of acute cholecystitis and presumably reactive descending duodenitis.?? Patient was evaluated by surgery with recommendation of antibiotics and consult to interventional radiology for evaluation of cholecystostomy tube. ?? I evaluated the patient at bedside who denies any abdominal pain or discomfort at this time.?? She reports her abdominal pain was initially bandlike across her mid abdomen.?? She received morphine at8 AM on 06/18/2023, but has not received any pain medication since then and is comfortable lying in bed. ?? She is hemodynamically stable.?? On physical exam, she has mild tenderness to palpation in the right lower quadrant.?? No signs of guarding or rigidity.?? There is no tenderness to palpation in the right upper quadrant and she has negative Delgado's sign. ?? She does not have any leukocytosis or fever.?? I independently reviewed her CT abdomen pelvis from 06/17/2023 which demonstrates a moderately distended gallbladder with mild pericholecystic fluid andadjacent fat stranding.?? There is also layering density at the gallbladder fundus which may relateto stones or sludge. ?? Assessment and plan: ?? Denise Sharp is a 83-year-old female with multiple medical comorbidities, including aortic stenosis and coronary artery disease on aspirin who initially presented to the emergency department with chest pain and epigastric pain.?? Her cardiac workup was positive for elevated troponin, but EKG is negative for signs of acute ischemia.?? CT demonstrates findings suggestive of acute cholecystitis, however clinically, she does not demonstrate fevers or leukocytosis and has a negative Delgado sign on physical exam.?? Therefore, her overall clinical picture is equivocal for acute cholecystitis.?? Idiscussed cholecystostomy tube placement with the patient and her son at bedside.?? However, we will plan to obtain nuclear medicine HIDA scan for more definitive evaluation prior to the procedure. ? Resume diet as appropriate for today. ??? N.p.o. at midnight. ??? Recommend nuclear medicine HIDA scan to evaluate for acute cholecystitis. ??? If HIDA scan is positive, we will proceed with cholecystostomy tube placement.?? If HIDA scan is negative, recommend conservative management and antibiotics as clinically indicated. ??? Hold aspirin in anticipation of cholecystostomy tube placement. ?? Please do not hesitate to contact interventional radiology if there are any further questions or concerns??or if there is an acute change to patient's clinical condition. ?? ABILIO RAMESH MD Interventional Radiology ?? I spent a total of??45 minutes today reviewing the chart/medical records, speaking with the patient, formulating and discussing the treatment plan, and documenting the findings and encounter. * Asya STOVER, Jarett Fields: PERFORM, MODIFY, MODIFY Event Display: Consultation Note Authored Date: Patient: ??DENISE SHARP ? Age:??83 Years?Sex:??Female?:??1940?? Chief Complaint ?Consulting Provider: Wes Arevalo MD ?Consulted Surgeon: Ana Fajardo MD ?Reason for Consultation:??acute cholecystitis History of Present Illness Denise is a 83-year-old female with past medical history of??aortic stenosis with??left main coronary artery disease??on aspirin, hypertension, hyperlipidemia, anxiety, hypothyroidism??who presentedto the ED with??roughly 24 hours of epigastric abdominal pain that woke her up at 3 AM??on 06/16.??It was not associated with??eating, but was associated with??nausea and no emesis. She presented the ED, labs were obtained did not reveal any leukocytosis or left shift and remainder of her labs were within normal limits including normal LFTs.?? A CT scan of the abdomen pelvis was obtained which revealed a distended and edematous gallbladder with wall thickening, mural hyperemia, sludge and pericholecystic fluid concerning for acute cholecystitis.?? For these findings, an emergency general surgery consultation was requested.? On evaluation, Denise's pain has completely gone away. She had a total of ~6hours of abdominal pain in total. She was feeling in her normal state of health prior to this timeframe.?? Of note, shehas been worked up for a TAVR versus surgical valve replacement with CABG x 2 per cardiology and car diothoracic surgery notes, however she has declined open heart surgery and TAVR.?? She remains withsignificant aortic stenosis. Review of Systems Negative except as noted above in HPI. Physical Exam Vitals & Measurements T:??98.3?F?? HR:??103??(Peripheral)?? RR:??18?? BP:??155/84?? SpO2:??98%?? HT:??157??cm?? WT:??68.2??kg?? General:??Alert, in no acute cardiopulmonary distress. Mental Status:??Oriented to person, place and time. Normal affect. Head:??Normocephalic. Eyes:??Extraocular muscles intact. Ear, Nose and Throat:??Oropharynx clear, mucous membranes moist. Ears and nose without masses, lesions or deformities. Neck:??Supple, Full range of motion. Respiratory:??Nonlabored breathing in room air Cardiovascular:??Regular rate and rhythm Gastrointestinal:??Abdomen soft, non-distended.??No tenderness in epigastrum or RUQ, negative Delgado sign Neurologic:??No focal neurological deficits. Moves all extremities spontaneously. Sensation intact bilaterally. Skin:??No rashes or lesions. No petechiae or purpura. No edema. Musculoskeletal:??No cyanosis or clubbing. No gross deformities. Normal range of motion.?? Assessment/Plan Denise is a 83-year-old female with past medical history of??aortic stenosis with??left main coronary artery disease??on aspirin, hypertension, hyperlipidemia, anxiety, hypothyroidism??who presentedto the ED with??roughly 24 hours of epigastric abdominal pain that woke her up at 3 AM??on 06/16.??It was not associated with??eating, but was associated with??nausea and no emesis. She presented the ED, labs were obtained did not reveal any leukocytosis or left shift and remainder of her labs were within normal limits including normal LFTs.?? A CT scan of the abdomen pelvis was obtained which revealed a distended and edematous gallbladder with wall thickening, mural hyperemia, sludge and pericholecystic fluid concerning for acute cholecystitis.?? For these findings, an emergency general surgery consultation was requested.??A confounding factor is her critical aortic stenosis, which has not been repaired??despite recommendation??by cardiac surgery.?? Given the absence of pain and tenderness, no LFT derangements or leukocytosis, she does not require emergent surgery. However, her CT scan is concerning enough that she should probably be admitted for observation, antibiotics, and cholecystostomy tube placement. ?? Plan: Admit to Medicine for potential cholecystitis in the setting of critical and LMCA stenosis Ceftriaxone and Flagyl for potential cholecystitis on CT scan Recommend C-tube given co-morbidities, will place IRIR consultation Ok for a diet, NPO after midnight ?? Surgery will continue to follow ?? Discussed with ??Scotty [id number] with questions or concerns?? Problem List/Past Medical History Critical aortic stenosis Left main coronary disease Hypertension Hyperlipidemia Anxiety Hypothyroidism Procedure/Surgical History Denies surgeries in the past Home Medications Aspirin: 81 mg = 1 tablet, By Mouth, Daily Cholecalciferol: 25 mcg = 1 tablet, By Mouth, Daily Clonazepam: 0.5 mg = 1 tablet, By Mouth, 2 times a day hydrochlorothiazide-olmesartan: 1 tablet, By Mouth, Daily Levothyroxine: 75 mcg = 1 tablet, By Mouth, Daily Multivitamin: 1 tablet, By Mouth, Daily Nebivolol: 10 mg = 1 tablet, By Mouth, Daily Nortriptyline: 50 mg = 1 capsule, By Mouth, Daily Simvastatin: 40 mg = 1 tablet, By Mouth, Daily at bedtime Allergies penicillin Social History Tobacco Use: Never (less than 100 in lifetime), Former smoker, quit more than 30 days ago. Family History No family history recorded. Radiology ? Result type:?CT Abd/Pelvis W/ IV Contrast Only Result date:?June 17, 2023 19:48 EST Result status:?Auth (Verified) Result title:?CT Abd/Pelvis W/ IV Contrast Only Performed by:?Inocencio Jean MD on June 17, 2023 20:01 EST Verified by:?Inocencio Jean MD on June 17, 2023 20:01 EST Encounter info:?[id number], [facility], Emergency, 06/17/2023 -? * Final Report * ?? Reason For Exam LLQ abdominal pain;Other: ?? RESULT: CT Abd/Pelvis W/ IV Contrast Only CT Abd/Pelvis W/ IV Contrast Only? Hx of Present Illness: CP starting in the middle of the night. reports pain still present. Indicates pain to upper abdomen ??diaphragm. Hx of aortic stenosis, needs valve replacement; Reason: Other:;LLQ abdominal pain; Clinical Question(s): Abscess; Order Comment: ?? TECHNIQUE: Helical CT through the abdomen and pelvis with IV contrast formatted in 3 planes. 100 ccof Omnipaque 300 was administered intravenously. This study was performed without oral contrast. Weight-based protocol using automatic tube modulation was used to optimize exposure parameters. ?? COMPARISON: CT angiogram abdomen and pelvis 10/31/2022 ?? FINDINGS:?? TOPOGRAM, LINES AND TUBES: None. ?? LOWER THORAX: ??Mild basilar subsegmental atelectasis. Visualized heart is normal in size. ?? DIAPHRAGM: ??Unremarkable.? LIVER: ??Normal. ?? GALLBLADDER: ??Gallbladder is distended with edematous wall thickening, mural hyperemia, sludge andpericholecystic fluid. ?? BILE DUCTS: ??No biliary ductal dilatation. ?? SPLEEN: ??Normal in size. 0.4 cm hypodensity, too small to characterize, presumably a cyst (series 201 image 13). 0.7 cm ill-defined hyperdensity suggestive of hemangioma (series 201 image 20), unchanged. ?? PANCREAS: ??Fatty atrophy throughout the pancreatic head. No pancreatic ductal dilatation. ?? ADRENAL GLANDS: ??No nodules. ?? KIDNEYS AND URETERS: ??No hydronephrosis. Simple left renal cysts measuring up to 3.8 cm at the lower pole. Few subcentimeter bilateral renal hypodensities, too small to characterize, but likely representing cysts. No suspicious mass. ?? BLADDER: Bladder is normal. ?? REPRODUCTIVE: ??Persistent hypodense thickening of endometrial stripe measuring 1.1 cm, similar to prior. ?? STOMACH AND BOWEL: ??Stomach is collapsed. No bowel obstruction. Mild fat stranding surrounding thedescending duodenum, presumably reactive to gallbladder inflammation. Colonic diverticulosis without acute diverticulitis. ?? APPENDIX: ??Not seen, but no evidence of appendicitis. ?? PERITONEUM AND RETROPERITONEUM: ??No pneumoperitoneum or loculated fluid collection. No omental or mesenteric mass. ?? LYMPH NODES: ??No lymphadenopathy. ?? VESSELS: ??Severe atherosclerotic calcification. Abdominal aorta is nonaneurysmal. No venous thrombosis.? ABDOMINAL WALL: Unremarkable.? BONES: ??Multilevel degenerative changes involve the spine. No acute osseous abnormality.? IMPRESSION:?? 1. ??Acute cholecystitis. 2. ??Presumably reactive descending duodenitis. 3. ??Diverticulosis without acute diverticulitis. 4. ??Persistent thickening of endometrial stripe measuring 1.1 cm. Given postmenopausal status, follow-up outpatient pelvic ultrasound recommended. Lab Results Labs Last 24 Hours BLOOD COUNT & DIFF ? Event Name?? Event Result?? Date/Time?? WBC 8.5 k/mm3 06/17/23 08:11:00 RBC 4.57 m/mm3 06/17/23 08:11:00 Hgb 13.5 Gm/dL 06/17/23 08:11:00 Hct 41.1 % 06/17/23 08:11:00 MCV 89.9 femtoliters 06/17/23 08:11:00 MCH 29.5 pg 06/17/23 08:11:00 MCHC 32.8 g/dL??Low 06/17/23 08:11:00 Platelet Count 228 k/mm3 06/17/23 08:11:00 MPV 9.9 femtoliters 06/17/23 08:11:00 Nucleated RBC (Automated) 0 #/100 WBC'S 06/17/23 08:11:00 ? CHEM GENERAL ? Event Name?? Event Result?? Date/Time?? Sodium 142 mmol/L 06/17/23 08:11:00 Chloride 106 mmol/L 06/17/23 08:11:00 Bicarbonate Level 27 mmol/L 06/17/23 08:11:00 Anion Gap 9 06/17/23 08:11:00 Glucose Level 119 mg/dL??High 06/17/23 08:11:00 BUN 13 mg/dL 06/17/23 08:11:00 Creatinine-Blood 0.9 mg/dL 06/17/23 08:11:00 Lipase 27 units/L 06/17/23 14:31:00 ? History and physical note * Jocelyn Coko MD: PERFORM, MODIFY Event Display: History and Physical Hospital Authored Date: Patient: ??DENISE SHARP ? Age:??83 Years?Sex:??Female?:??1940?? Chief Complaint/Reason for Consultation Epigastric pain History of Present Illness The pt is 83 yo F w pmhx of critical HTN, HLP, left??main coronary disease, anxiety, hypothyroidism. She was at her usual state of health until today when suddenly developed severe??epigastric pain.??She initially??was evaluated for CO but with normal EKG and negative trop. She than had CT A/P wIV contrast revealing acute cholecystitis. She was given CTX, Flagyl and seen by Surgery. Surgery suggested IR cholecystostomy tube drainage. She is pain free.?? Review of Systems Constitutional:??No weight loss, fever, chills, weakness or fatigue. Eyes:??No visual loss, blurred vision, double vision or yellow sclera ENT:??No hearing loss, sneezing, congestion, runny nose or sore throat. Respiratory:??No shortness of breath, cough or sputum production. Cardiovascular:??No chest pain, chest pressure or chest discomfort. No palpitations or pedal edema. Gastrointestinal:??No anorexia, nausea, vomiting or diarrhea. No abdominal pain or blood in stool. Genitourinary:??No burning micturition. No urinary frequency or incontinence. Neurologic:??No headache, dizziness, syncope, unilateral weakness, ataxia, numbness or tingling in the extremities. No change in bowel or bladder control. Musculoskeletal:??No muscle pain, back pain, joint pain or stiffness. Skin:??No rash or itching. Endocrine:??No reports of sweating. No cold or heat intolerance. No polyuria or polydipsia. Objective Measurements?? Height: 157 cm (06/17/23) Weight: 68.2 kg (06/17/23) Dry Weight: 68.2 kg (06/17/23) ?? Vital Signs?? Temperature: 98.8 DegF (06/17/23 22:11:00) Temperature Route: Oral (06/17/23 22:11:00) Pulse Rate:??104 bpm??High (06/18/23 01:32:00) Respiratory Rate: 23 br/min (06/18/23 01:00:00) Systolic Blood Pressure: 124 mm Hg (06/18/23 01:32:00) Diastolic Blood Pressure: 57 mm Hg (06/18/23 01:32:00) Blood pressure sites: Arm, right (06/18/23 01:00:00) Mean Arterial Pressure: 108 mm Hg (06/17/23 18:25:00) Pulse Pressure: 66 mm Hg (06/18/23 01:00:00) Oxygen Saturation: 98 % (06/18/23 01:00:00) Mode of Delivery (Oxygen): Room air (06/18/23 01:00:00) Early Warning Score: 3 (06/18/23 01:33:44) ?? Pain Scores 1 - 10 Pain Scale Score: 8 (08:40) ?? Intake/Output? 06/17 22:12 06/18 07:00 06/17 07:00 06/16 07:00 06/15 07:00 ?? 06/18 02:09 06/18 02:09 06/18 06:59 06/17 06:59 06/16 06:59 Intake ?100 ?0 ?100 ?0 ?0 Output ?0 ?0 ?0 ?0 ?0 Net Total ?100 ?0 ?100 ?0 ?0 ?? [place] Coma Scale Chas Coma Score: 15 (06/17/23 08:40:00) Motor Response-Adult: Obeys commands (06/17/23 08:40:00) Response Eye Opening: Spontaneously (06/17/23 08:40:00) Verbal Response-Adult: Oriented and converses (06/17/23 08:40:00) ? Physical Exam Constitutional: Alert, in no distress. Mental Status: Oriented to person, place and time. Head: Normocephalic. Eyes: Pupils are equal, round and reactive to light. Extraocular muscles intact. Ear, Nose and Throat: Oropharynx clear, mucous membranes moist. Trachea midline. Neck: Supple, Full range of motion. Respiratory: Clear to auscultation. No wheezing, rales or rhonchi. Cardiovascular: S1 S2 regular. No murmurs, rubs or gallops. Gastrointestinal: Abdomen soft, non-tender, non-distended. Normal bowel sounds. No pulsatile mass. No hepatosplenomegaly. Genitourinary: No costovertebral angle tenderness. Neurologic: Cranial nerves II-XII grossly intact. No focal neurological deficits. Moves all extremities spontaneously. Sensation intact bilaterally. Musculoskeletal: No cyanosis or clubbing. No gross deformities. Normal range of motion. Psychiatric: Normal mood and affect ?? EKG: NSR. No acute ischemic STT changes ?? CXR: NAD ?? CT A/P w IV contrast IMPRESSION:?? 1. ??Acute cholecystitis. 2. ??Presumably reactive descending duodenitis. 3. ??Diverticulosis without acute diverticulitis. 4. ??Persistent thickening of endometrial stripe measuring 1.1 cm. Given postmenopausal status, follow-up outpatient pelvic ultrasound recommended. ?? Assessment/Plan ?? Acute Cholecystitis Plan -Admit to medicine -Cont Ceftriaxone and Flagyl -Clear liquid diet -NPO after MN -IR CCY tube placement -Surgery, Dr. Fajardo et al??rec s as follows: ? Ceftriaxone and Flagyl for potential cholecystitis on CT scan ? Recommend C-tube given co-morbidities, will place IRIR consultation ? Ok for a diet, NPO after midnight ? Surgery will continue to follow -Symptomatic treatment ?? CAD, left main coronary disease HTN HLP Plan -Cont low dose asa -Cont statin, LFTs are ok -We do not have Nebivolol in our pharmacy. Will replace with Carvedilol 25 mg po bid for dual effect (htn control??and BB effect) -Hydralazine IV PRN??for elevated BP -Holding HCTZ/Olmesartan combo ?? Anxiety Plan -Cont Nortriptyline -PRN Clonazepam -Vit D. Holding MVI ?? Hypothyroidism Plan -Cont levothyroxine ?? Quality Measures DVT prophylaxis:??High risk, chemical ?VTE Prophylaxis Assessment:??VTE Prophylaxis Ordered Clear diet. Code Status:??She wishes to be Full code ?Order Code Status:??Code Status Ordered ? Histories Allergies Allergies ?(Active and Proposed Allergies Only) penicillin? (Severity: Unknown severity, Onset: Unknown) ?Comments: doesn't remember reaction ? Past Medical History/Problem List CAD, Left main coronary disease HTN HLP ?? Past Surgical History No surgery history documented. ?? Social History Tobacco Details:??Use: Never (less than 100 in lifetime), Former smoker, quit more than 30 days ago. ?? Family History No family history recorded. ?? Travel History Travel Outside [facility]: No Medications Home Medications Aspirin (aspirin 81 mg oral delayed release tablet)?81?Milligram?1?tablet?By Mouth?Daily Cholecalciferol (cholecalciferol 1000 intl units oral tablet)?1?tab(s)?25?Microgram?By Mouth?Daily Clonazepam (clonazePAM 0.5 mg oral tablet)?1?tab(s)?0.5?Milligram?By Mouth?2 times a day PRN hydrochlorothiazide-olmesartan (Benicar HCT 12.5 mg-40 mg oral tablet)?1?tab(s)?By Mouth?Daily Levothyroxine (levothyroxine 75 mcg (0.075 mg) oral tablet)?1?tab(s)?75?Microgram?ByMouth?Daily Multivitamin (Super B Complex Vitamin B Complex oral tablet)?1?tab(s)?By Mouth?Daily Nebivolol (nebivolol 10 mg oral tablet)?1?tab(s)?10?Milligram?By Mouth?Daily Nortriptyline (nortriptyline 50 mg oral capsule)?50?Milligram?1?capsule?By Mouth?Daily Simvastatin (simvastatin 40 mg oral tablet)?40?Milligram?1?tablet?By Mouth?Daily at bedtime I reviewed w the pt ?? Inpatient Medications Medications (18) Active SCHEDULED: (10) Aspirin 81 mg EC Tablet (aspirin 81 mg oral delayed release tablet) ??81 mg, By Mouth, Daily Carvedilol 25 mg Tablet (Coreg 25 mg oral tablet) ??25 mg, By Mouth, 2 times a day Ceftriaxone 1 Gm Inj (Ceftriaxone Inj) ??1 Gm, IVPB, Every 24 hours Enoxaparin 40 mg Inj (Enoxaparin Inj) ??40 mg 0.4 mL, Subcutaneous Injection, Daily Levothyroxine 75 mcg Tablet (levothyroxine 0.025 mg oral tablet) ??75 mcg, By Mouth, Daily Metronidazole 500 mg / NaCL 0.9% 100 mL (Flagyl IVPB) ??500 mg 100 mL, IVPB, Every 8 hours NaCl 0.9% Flush 3ml (NaCL 0.9% Flush) ??3 mL, IV Push, Every 8 hours Nortriptyline 25 mg Capsule (nortriptyline 25 mg oral capsule) ??50 mg, By Mouth, Daily Simvastatin 20 mg Tablet (simvastatin 20 mg oral tablet) ??40 mg, By Mouth, Daily at bedtime Vitamin D 1000 IU Tablet (cholecalciferol 1000 intl units oral tablet) ??, By Mouth, Daily CONTINUOUS: (0) PRN: (8) Acetaminophen 325 mg Tablet (Acetaminophen Tablet) ??650 mg, By Mouth, Every 4 hours Clonazepam 0.5 mg Tablet (clonazePAM 0.5 mg oral tablet) ??0.5 mg, By Mouth, 2 times a day Docusate Sodium 100 mg Capsule (Docusate Sodium Capsule) ??100 mg 1 capsule, By Mouth, 2 times a day Melatonin 3 mg Tablet (Melatonin Tablet) ??3 mg, By Mouth, Daily at bedtime NaCl 0.9% Flush 3ml (NaCL 0.9% Flush) ??3 mL, IV Push, Every 8 hours Ondansetron 2mg/mL Inj (2mL Vial) (Ondansetron Inj) ??4 mg, IV Push, Every 6 hours Senna Tablet ??8.6 mg 1 tablet, By Mouth, 2 times a day Simethicone 80 mg Chewable Tablet (Simethicone Tablet) ??80 mg, Chew, 3 times a day Results Recent Labs BLOOD COUNT & DIFF WBC 8.5 k/mm3 ()?? 06/17/2023 08:11 RBC 4.57 m/mm3 ()?? 06/17/2023 08:11 Hgb 13.5 Gm/dL ()?? 06/17/2023 08:11 Hct 41.1 % ()?? 06/17/2023 08:11 MCV 89.9 femtoliters ()?? 06/17/2023 08:11 MCH 29.5 pg ()?? 06/17/2023 08:11 MCHC 32.8 g/dL (Low)?? 06/17/2023 08:11 Platelet Count 228 k/mm3 ()?? 06/17/2023 08:11 RDW-SD 41.3 femtoliters ()?? 06/17/2023 08:11 MPV 9.9 femtoliters ()?? 06/17/2023 08:11 Nucleated RBC (Automated) 0.0 #/100 WBC'S ()?? 06/17/2023 08:11 Abs. NRBC 0.0 k/mm3 ()?? 06/17/2023 08:11 Abs. Neut 5.8 k/mm3 ()?? 06/17/2023 08:11 Abs. Lymph 1.9 k/mm3 ()?? 06/17/2023 08:11 Abs. [place] 0.6 k/mm3 ()?? 06/17/2023 08:11 Abs. Eo 0.1 k/mm3 ()?? 06/17/2023 08:11 Abs. Baso 0.0 k/mm3 ()?? 06/17/2023 08:11 Neut % 68.3 % ()?? 06/17/2023 08:11 Lymph % 22.9 % ()?? 06/17/2023 08:11 [place] % 7.4 % ()?? 06/17/2023 08:11 Eos % 0.8 % ()?? 06/17/2023 08:11 Baso % 0.4 % ()?? 06/17/2023 08:11 Imm Gran 0.2 % ()?? 06/17/2023 08:11 Abs. Imm Gran 0.0 k/mm3 ()?? 06/17/2023 08:11 ?? CARDIAC Nt-Probnp 111 pg/mL ()?? 06/17/2023 08:11 High Sensitivity Troponin (HSTnT) 18 ng/L (High)?? 06/18/2023 00:15 ?? CHEM GENERAL Sodium 142 mmol/L ()?? 06/17/2023 08:11 Potassium 3.9 mmol/L ()?? 06/17/2023 08:11 Chloride 106 mmol/L ()?? 06/17/2023 08:11 Bicarbonate Level 27 mmol/L ()?? 06/17/2023 08:11 Anion Gap 9 ()?? 06/17/2023 08:11 Glucose Level 119 mg/dL (High)?? 06/17/2023 08:11 BUN 13 mg/dL ()?? 06/17/2023 08:11 Creatinine-Blood 0.9 mg/dL ()?? 06/17/2023 08:11 Estimated GFR Creatinine 61 ML/MIN/1.73 M2 ()?? 06/17/2023 08:11 Calcium 9.1 mg/dL ()?? 06/17/2023 08:11 Protein, Total 6.4 Gm/dL ()?? 06/17/2023 14:31 Albumin 4.3 Gm/dL ()?? 06/17/2023 14:31 Alkaline Phosphatase 91 units/L ()?? 06/17/2023 14:31 Lipase 27 units/L ()?? 06/17/2023 14:31 AST (SGOT) 25 units/L ()?? 06/17/2023 14:31 ALT (SGPT) 22 units/L ()?? 06/17/2023 14:31 Bilirubin, Total 0.5 mg/dL ()?? 06/17/2023 14:31 Bilirubin, Direct <0.2 mg/dL ()?? 06/17/2023 14:31 Bilirubin, Indirect Direct bilirubin is less than the measureable limit. Therefore, indirect mg/dL ()?? 06/17/2023 14:31 ?? HEME OTHER Hold Blue Top SPECIMEN DISCARDED AFTER 4 HOURS. ()?? 06/17/2023 08:11 ?? URINE OTHER Est Creatinine Clearance 37.79 mL/min ()?? 06/17/2023 09:01 ? Abnormal Labs ?? BLOOD COUNT & DIFF ??Abs. Imm Gran ??0.0 k/mm3 () ??06/17/2023 08:11 ??Abs. NRBC ??0.0 k/mm3 () ??06/17/2023 08:11 ??Imm Gran ??0.2 % () ??06/17/2023 08:11 ??MCHC ??32.8 g/dL (Low) ??06/17/2023 08:11 ??Nucleated RBC (Automated) ??0.0 #/100 WBC'S () ??06/17/2023 08:11 ??RDW-SD ??41.3 femtoliters () ??06/17/2023 08:11 ? CARDIAC ??High Sensitivity Troponin (HSTnT) ??18 ng/L (High) ??06/18/2023 00:15 ? CHEM GENERAL ??Estimated GFR Creatinine ??61 ML/MIN/1.73 M2 () ??06/17/2023 08:11 ??Glucose Level ??119 mg/dL (High) ??06/17/2023 08:11 ? HEME OTHER ??Hold Blue Top ??SPECIMEN DISCARDED AFTER 4 HOURS. () ??06/17/2023 08:11 ? Note: Critical results are displayed in red. ? Cardiology Labs Nt-Probnp: 111 pg/mL (06/17/23 08:11:00) High Sensitivity Troponin (HSTnT):??18 ng/L??High (06/18/23 00:15:00) High Sensitivity Troponin (HSTnT): HEMOLYZED (06/17/23 14:31:00) High Sensitivity Troponin (HSTnT): 13 ng/L (06/17/23 08:11:00) ?? Imaging(s) ?Chest 2 Views Frontal and Lat ?? 06/17/2023 08:32??by Kennedy Zhao MD ?ECG 12-Lead ?? 06/17/2023 08:10??by Ivelisse Snushine DO ?CT Abd/Pelvis W/ IV Contrast Only ?? 06/17/2023 19:48??by Inocencio Jean MD ? Consults(s) ?Consultation Note ?? 06/17/2023 20:52??by Jarett Sky MD ? EKG study * Event Display: ECG 12-Lead Authored Date: Please click on pdf link to open report * Event Display: ECG 12-Lead Authored Date: Ventricular Rate: 69 BPM Atrial Rate: 69 BPM P-R Interval: 148 ms QRS Duration: 90 ms Q-T Interval: 434 ms QTC Calculation(Bazett): 465 ms P [place]: 19 degrees R [place]: 17 degrees T [place]: 38 degrees Normal sinus rhythm Normal ECG When compared with ECG of 17-JUN-2023 08:10, No significant change was found Confirmed by IVELISSE SUNSHINE MD ([id number]) on 06/20/2023 8:22:58 AM [place]: IVELISSE SUNSHINE MD * Event Display: ECG 12-Lead Authored Date: Please click on pdf link to open report * Event Display: ECG 12-Lead Authored Date: Ventricular Rate: 79 BPM Atrial Rate: 79 BPM P-R Interval: 158 ms QRS Duration: 96 ms Q-T Interval: 400 ms QTC Calculation(Bazett): 458 ms P [place]: 21 degrees R [place]: 21 degrees T [place]: 47 degrees Normal sinus rhythm Normal ECG When compared with ECG of 14-AUG-2022 09:51, Nonspecific T wave abnormality no longer evident in Inferior leads Confirmed by IVELISSE SUNSHINE MD ([id number]) on 06/17/2023 11:29:46 AM [place]: IVELISSE SUNSHINE MD Cardiology * Event Display: Cardiac Rhythm Strips Authored Date: Hospital Progress note * Salo Orozco DO: PERFORM, MODIFY Event Display: Progress Note Hospital Authored Date: Patient: ??DENISE SHARP ? Age:??83 Years?Sex:??Female?:??1940?? Subjective Denise was seen and evaluated morning rounds. ??She was sleeping comfortably and was easily arousable.?? Yesterday she??had her??percutaneous biliary drain placed by interventional radiology. ??Since placement she has had approximate 100 cc of bilious??and purulent output.?She did continue to have some postprandial??right upper quadrant pain following placement of her drain last night.?? Review of Systems As per subjective Physical Exam Vitals & Measurements T:??97.7?F?? HR:??69??(Peripheral)?? RR:??20?? BP:??106/40?? SpO2:??95%?? HT:??157??cm?? WT:??69??kg?? BMI:??27.99?? Constitutional: awake and alert HEENT: Normocephalic, atraumatic, no JVD, normal conjunctivae, moist mucous membranes CV: +2 peripheral pulses, RRR, cap refil <2s Respiratory: non-labored respirations, normal chest wall excursion b/l, no accessory muscle usage Abdomen: Soft, non-distended,??no tenderness on palpation, no rebound tenderness, no guarding, right upper quadrant IR drain with bilious/purulent output Neuro: 5/5 strength grossly, no FND Extremity:??Distal pulses intact, ? Skin: warm / pink / dry, no jaundice, no rash Assessment/Plan Denise is 1 day status post percutaneous biliary drain placement. ??Since placement she has had approximately 100 cc of bilious and purulent output.?? She remains afebrile with no leukocytosis.?? While she did have some postprandial pain following her drain placement yesterday we would expect thisto be improved this morning giving her??ongoing drainage.?? We would recommend diet advancement as??tolerated??with outpatient??surgical follow-up. ?? Recommendations: ??? Advance diet as tolerated ?Outpatient surgical follow-up ??? Appropriate for discharge from surgical perspective once able to tolerate a full diet. ?? Please page??Green??Surgery with questions at Pager#[phone] Discussed with DrMumtaz??Scotty ? Intake and Output Intake and Output Results?? This visit (24 hour periods starting at 07:00 EST)? 06/20/23 *?? 06/19/23?? 06/18/23?? Total Summary?Intake mL?? --?? 1,050?? 200?Output mL?? --?? --?? --?Fluid Balance ?? --?? 1,050?? 200?? Intake (2)?Dextrose 5% with 0.9% NaCl 1,000 mL mL?? --?? 750?? --?Metronidazole mL?? --?? 300?? 200?Total?? --?? 1,050?? 200?? Output (0)? Counts (1)?Urine Count ?? --?? --?? 3? * This column has not completed the indicated time period.?? Labs Last 24 Hours BLOOD COUNT & DIFF ? Event Name?? Event Result?? Date/Time?? WBC 11 k/mm3 06/20/23 00:53:00 RBC 3.94 m/mm3??Low 06/20/23 00:53:00 Hgb 11.4 Gm/dL??Low 06/20/23 00:53:00 Hct 34.2 %??Low 06/20/23 00:53:00 MCV 86.8 femtoliters 06/20/23 00:53:00 MCH 28.9 pg 06/20/23 00:53:00 MCHC 33.3 g/dL 06/20/23 00:53:00 Platelet Count 203 k/mm3 06/20/23 00:53:00 MPV 10.3 femtoliters 06/20/23 00:53:00 Nucleated RBC (Automated) 0 #/100 WBC'S 06/20/23 00:53:00 ? CHEM GENERAL ? Event Name?? Event Result?? Date/Time?? Sodium 139 mmol/L 06/20/23 00:53:00 Chloride 104 mmol/L 06/20/23 00:53:00 Bicarbonate Level 22 mmol/L 06/20/23 00:53:00 Anion Gap 13 06/20/23 00:53:00 Glucose Level 125 mg/dL??High 06/20/23 00:53:00 BUN 8 mg/dL 06/20/23 00:53:00 Creatinine-Blood 0.8 mg/dL 06/20/23 00:53:00 ? * Aneesh Watson: PERFORM, MODIFY, MODIFY Event Display: Progress Note Hospital Authored Date: Patient: ??DENISE SHARP ? Age:??83 Years?Sex:??Female?:??1940?? Provider Clinical Summary ?We will continue to follow and manage catheter placed by our service. ??[place] [phone]. ?Definitive treatment of gallbladder disease is cholecystectomy. ??Catheter should remain inplace for 4-6 weeks prior to removal of catheter to allow maturation of the tract around the tube to reduce risk of bile leakage. ??Typically, catheter will be removed at time of surgery.?Per karime col,??catheter cholangiogram should be scheduled at discharge to confirm cystic and bile duct patency prior to consideration of removal of cholecystectomy tube in 6 weeks with appropriate outpatient surgical follow up. * Aneesh Alexander MD: PERFORM Event Display: Progress Note Hospital Authored Date: Patient: ??DENISE SHARP ? Age:??83 Years?Sex:??Female?:??1940?? Subjective 83F s/p perc joni tube ?? Pt reports severe RUQ pain after trying to drink clear liquids at site of tube. Denies n/v, sob,cp, f/c Physical Exam Vitals & Measurements T:??98?F?? HR:??84??(Peripheral)?? RR:??18?? BP:??134/59?? SpO2:??98%?? HT:??157??cm?? WT:??69??kg?? BMI:??27.99?? General: well-appearing, NAD CV: regular rate Resp: nonlabored, symmetric on RA Abd: soft, nondistended. Signficant RUQ tenderness around site of perc joni tube. Drain with thickbilious output Assessment/Plan No changes to plan at this time Intake and Output Intake and Output Results?? This visit (24 hour periods starting at 07:00 EST)? 06/19/23 *?? 06/18/23?? 06/17/23?? Total Summary?Intake mL?? 200?? 200?? 100?Output mL?? --?? --?? --?Fluid Balance ?? 200?? 200?? 100?? Intake (1)?Metronidazole mL?? 200?? 200?? 100?Total?? 200?? 200?? 100?? Output (0)? Counts (1)?Urine Count ?? --?? 3?? --? * This column has not completed the indicated time period.?? Labs Last 24 Hours No qualifying data available. Note * Arianna Cali RN: PERFORM Event Display: Discharge/Transfer Note Hospital Authored Date: [id number] Nursing Discharge Note Entered On: 06/20/2023 13:59 EST Performed On: 06/20/2023 13:56 EST by Arianna Cali RN Nursing Discharge Note 2 Discharge Time : 06/20/2023 13:56 EST Discharge Level of Care at Discharge : Homehealth/VNA Discharge VNA/Hospice/Home Care(v001) : [facility] [phone] Patient Left Unit Via : Wheelchair Patient Accompanied Off Unit with : Responsible adult DC Instructions Provided & Signed by Pt : Yes Patient Understands D/C Instructions : Yes Patient Instructions Discharge Signed : Yes Did Pt have Specialty Bed or Wound Vac : No Arianna Cali RN - 06/20/2023 13:56 EST * Ericka Pérez MD: PERFORM Event Display: Discharge/Transfer Note Hospital Authored Date: [id number] Patient: ??DENISE SHARP ? Age:??83 Years?Sex:??Female?:??1940?? Patient Information Discharge [facility]: [facility] Primary Care Physician: Jerman Mendoza MD Admit Date/Time: 06/17/23 22:12 Discharge Disposition Discharge Disposition: ?? Discharge Diagnosis Acute cholecystitis (K81.0) CAD (coronary artery disease) (I25.10) SONIDO (generalized anxiety disorder) (F41.1) Hypertensive heart disease (I11.9) ?? _ Discharge Medications Amoxicillin-Clavulanate (amoxicillin-clavulanate 875 mg-125 mg oral tablet)?1?tab(s)?By Mouth?2 times a day?for 7?Days?Patient has no allergy to penicillin already taking medication in the hospital Aspirin (aspirin 81 mg oral delayed release tablet)?81?Milligram?1?tablet?By Mouth?Daily Carvedilol (Coreg 25 mg oral tablet)?25?Milligram?By Mouth?2 times a day?for 30?Days?Pt is on Nebivolol 10 mg po daily. Conversion is Coreg 25 bid. May adjust dose per evidence. Cholecalciferol (cholecalciferol 1000 intl units oral tablet)?1?tab(s)?25?Microgram?By Mouth?Daily Clonazepam (clonazePAM 0.5 mg oral tablet)?1?tab(s)?0.5?Milligram?By Mouth?2 times a day Docusate (Docusate Sodium Capsule)?100?Milligram?1?capsule?By Mouth?2 times a day?as needed?Constipation Levothyroxine (levothyroxine 75 mcg (0.075 mg) oral tablet)?1?tab(s)?75?Microgram?ByMouth?Daily Multivitamin (Super B Complex Vitamin B Complex oral tablet)?1?tab(s)?By Mouth?Daily Nortriptyline (nortriptyline 50 mg oral capsule)?50?Milligram?1?capsule?By Mouth?Daily Simvastatin (simvastatin 40 mg oral tablet)?40?Milligram?1?tablet?By Mouth?Daily at bedtime ? Objective Assessment and Plan Acute cholecystitis (K81.0):??83 yo F w pmhx of critical HTN, HLP, left main coronary disease, anxiety, hypothyroidism.?Was admitted for abdominal pain??CT of the abdomen was done which??questioned acute cholecystitis surgery was??consulted??who recommended??a possible cholecystostomy tube this patient is high risk for surgery due to cardiac history.? Abdominal pain??cholelithiasis??and acute??cholecystitis Currently on ceftriaxone and metronidazole followed by surgery recommended??IR guided cholecystostomy tube previous provider spoke to IR??they recommended a HIDA scan??was completed and showed evidence of acute cholecystitis IR placed a close ostomy??tube on 06/19/2023 patient tolerated the procedurewithout any complication,??abdominal pain has improved no leukocytosis patient is afebrile Antibiotics switched to Augmentin 875 mg twice daily patient currently has no allergy to penicillinand tolerating??antibiotics without any??side effects. She will complete a course of 7 days Diet has been advanced Surgical team recommends outpatient follow-up with surgery Dr. Fajardo Continue with bowel regime Surgical team will decide??when to remove the cholecystostomy tube??probably in 7 to 10 days. ?critical aortic stenosis currently no chest pain and no shortness of breath ??CAD, left main coronary disease ??HTN ??HLP Will discontinue hydrochlorothiazide continue with Coreg for blood pressure ?Anxiety ??-Cont Nortriptyline ??-PRN Clonazepam ? Hypothyroidism ??Plan ??-Cont levothyroxine ?? Disposition pending physical therapy evaluation if patient needed rehab expected length of stay will be less than 30 days ?? Discharge Planning:? Vital Signs?? Temperature: 97.9 DegF (06/20/23 10:32:00) Temperature Route: Oral (06/20/23 10:32:00) Pulse Rate: 72 bpm (06/20/23 10:32:00) Respiratory Rate: 20 br/min (06/20/23 10:32:00) Systolic Blood Pressure: 124 mm Hg (06/20/23 10:32:00) Diastolic Blood Pressure: 58 mm Hg (06/20/23 10:32:00) Blood pressure sites: Arm, left (06/20/23 10:32:00) Mean Arterial Pressure: 80 mm Hg (06/20/23 10:32:00) Pulse Pressure: 66 mm Hg (06/20/23 10:32:00) Oxygen Saturation: 99 % (06/20/23 10:32:00) Mode of Delivery (Oxygen): Room air (06/20/23 10:32:00) Early Warning Score: 2 (06/20/23 10:32:30) ? . Physical Exam General: [Alert, in no acute cardiopulmonary distress.] Mental Status: [Oriented to person, place and time. Normal affect.] Head: [Normocephalic.] Eyes: [Pupils are equal, round and reactive to light. Extraocular muscles intact.] Ear, Nose and Throat: [Oropharynx clear, mucous membranes moist. Ears and nose without masses, lesions or deformities. Tympanic membranes clear bilaterally. Trachea midline.] Neck: [Supple, Full range of motion.] Respiratory: [Clear to auscultation and percussion. No wheezing, rales or rhonchi.] Cardiovascular: [Heart sounds normal. No thrills. Regular rate and rhythm, no murmurs, rubs or gallops.] Gastrointestinal: [Abdomen soft, non-tender,??cholecystostomy tube in place??and draining??well Genitourinary: [No costovertebral angle tenderness.] Neurologic: [Cranial nerves II-XII grossly intact. No focal neurological deficits. Deep tendon reflexes +2 bilaterally. Flexor plantar response. Moves all extremities spontaneously. Sensation intact bilaterally.] Skin: [No rashes or lesions. No petechiae or purpura. No edema.] Musculoskeletal: [No cyanosis or clubbing. No gross deformities. Normal range of motion.] ?? Pending Results Add On Lab Order ordered on 06/17/2023 Anaerobic Culture ordered on 06/19/2023 Wound Deep Culture w/ Gram Smear ordered on 06/19/2023 Follow-Up Appointments Added Follow Up ?Time Frame ?Comments Ana Fajardo MD?1 to 2 weeks Home Health Face to Face ^[facility] Results Discharge Labs BLOOD COUNT & DIFF WBC 11.0 k/mm3 ()?? 06/20/2023 00:53 RBC 3.94 m/mm3 (Low)?? 06/20/2023 00:53 Hgb 11.4 Gm/dL (Low)?? 06/20/2023 00:53 Hct 34.2 % (Low)?? 06/20/2023 00:53 MCV 86.8 femtoliters ()?? 06/20/2023 00:53 MCH 28.9 pg ()?? 06/20/2023 00:53 MCHC 33.3 g/dL ()?? 06/20/2023 00:53 Platelet Count 203 k/mm3 ()?? 06/20/2023 00:53 RDW-SD 39.6 femtoliters ()?? 06/20/2023 00:53 MPV 10.3 femtoliters ()?? 06/20/2023 00:53 Nucleated RBC (Automated) 0.0 #/100 WBC'S ()?? 06/20/2023 00:53 Abs. NRBC 0.0 k/mm3 ()?? 06/20/2023 00:53 Abs. Neut 5.8 k/mm3 ()?? 06/17/2023 08:11 Abs. Lymph 1.9 k/mm3 ()?? 06/17/2023 08:11 Abs. [place] 0.6 k/mm3 ()?? 06/17/2023 08:11 Abs. Eo 0.1 k/mm3 ()?? 06/17/2023 08:11 Abs. Baso 0.0 k/mm3 ()?? 06/17/2023 08:11 Neut % 68.3 % ()?? 06/17/2023 08:11 Lymph % 22.9 % ()?? 06/17/2023 08:11 [place] % 7.4 % ()?? 06/17/2023 08:11 Eos % 0.8 % ()?? 06/17/2023 08:11 Baso % 0.4 % ()?? 06/17/2023 08:11 Imm Gran 0.2 % ()?? 06/17/2023 08:11 Abs. Imm Gran 0.0 k/mm3 ()?? 06/17/2023 08:11 ?? CARDIAC Nt-Probnp 111 pg/mL ()?? 06/17/2023 08:11 High Sensitivity Troponin (HSTnT) 21 ng/L (High)?? 06/18/2023 06:09 ?? CHEM GENERAL Sodium 139 mmol/L ()?? 06/20/2023 00:53 Potassium 3.8 mmol/L ()?? 06/20/2023 00:53 Chloride 104 mmol/L ()?? 06/20/2023 00:53 Bicarbonate Level 22 mmol/L ()?? 06/20/2023 00:53 Anion Gap 13 ()?? 06/20/2023 00:53 Glucose Level 125 mg/dL (High)?? 06/20/2023 00:53 BUN 8 mg/dL ()?? 06/20/2023 00:53 Creatinine-Blood 0.8 mg/dL ()?? 06/20/2023 00:53 Estimated GFR Creatinine 78 ML/MIN/1.73 M2 ()?? 06/20/2023 00:53 Calcium 7.9 mg/dL (Low)?? 06/20/2023 00:53 Protein, Total 5.3 Gm/dL (Low)?? 06/18/2023 06:09 Albumin 3.6 Gm/dL ()?? 06/18/2023 06:09 AG Ratio 2.1 ()?? 06/18/2023 06:09 Alkaline Phosphatase 68 units/L ()?? 06/18/2023 06:09 Lipase 27 units/L ()?? 06/17/2023 14:31 AST (SGOT) 14 units/L ()?? 06/18/2023 06:09 ALT (SGPT) 14 units/L ()?? 06/18/2023 06:09 Bilirubin, Total 0.5 mg/dL ()?? 06/18/2023 06:09 Bilirubin, Direct <0.2 mg/dL ()?? 06/17/2023 14:31 Bilirubin, Indirect Direct bilirubin is less than the measureable limit. Therefore, indirect mg/dL ()?? 06/17/2023 14:31 ?? COAG INR 1.1 ()?? 06/18/2023 06:09 Protime (PT) 11.7 seconds (High)?? 06/18/2023 06:09 APTT 30.2 seconds ()?? 06/18/2023 06:09 ? HEME OTHER Hold Blue Top SPECIMEN DISCARDED AFTER 4 HOURS. ()?? 06/17/2023 08:11 ? URINE OTHER Est Creatinine Clearance 42.51 mL/min ()?? 06/20/2023 02:44 ? 40??minutes spent on discharge * Elisa STOVER, Ericka: PERFORM Event Display: Discharge/Transfer Note Hospital Authored Date: She was seen by physical therapy recommended home with services,??homebound due to unsteady gait??generalized weakness deconditioning VNA to follow-up for cholecystostomy tube management??continue tocheck drainage??outpatient follow- up??emptied the bag daily??or if less than??20 cc then every other day, physical therapy for gait stability * Candy Garner: PERFORM, SIGN, VERIFY Event Display: Case Management Discharge Plan Authored Date: Patient: DENISE SHARP Age: 83 years Sex: Female : 1940 Associated Diagnoses: None Author: Candy Garner Discharge Plan Case Management Discharge Plan : Case Management Discharge Plan Data 06/20/2023 12:58 EST Discharge Level of Care at Discharge Homehealth/VNA Discharge VNA/Hospice/Home Care [facility] [phone] (Modified) Name of Agency #1 [facility] (Modified) Service Categories #1 Alf Service Comments #1 [facility] will call you to coordinate Homecare Visits (Modified) * Arianna Cali RN: PERFORM Event Display: Patient Education/Instruction Authored Date: Inpatient Adult Discharge Instructions [address] [address] Name: DENISE SHARP : 1940 Visit: 06/17/2023 22:12:00 Current Date: 06/20/2023 13:18 Account: [id number] Inpatient Adult Discharge Instructions We would like to thank you for allowing us to assist you with your healthcare needs. The following includes patient education materials and information regarding your injury/illness. Our entire staffstrives to provide an excellent experience for our patients and their families. PLEASE ENSURE YOU FOLLOW-UP PER THE INSTRUCTIONS BELOW! ?? YOUR OPINION IS IMPORTANT TO US! Please complete the survey you may receive by mail or email. Your feedback will be used to make improvements to the healthcare experiences of our patients and their families. Surveys are administered by [employer] ?? If further treatment with your primary care physician or another doctor is recommended, it is important for you to keep the appointment. Call your primary care physician or return to the Emergency Department immediately if your condition worsens, fails to improve, or new symptoms develop. If you need to find a doctor, you can call [facility] for a referral at [phone] or toll free at [phone]) or log in to [email or web address].. ?? [facility], in keeping with [facility] guidance, no longer requires face masks for staff, patientsor visitors in most situations. Similiar to time spent indoors at other locations, there is the chance that you were exposed to repiratory viruses during your time with us (such as flu or COVID-19). If you develop symptoms concerning for a viral respiratory infection, please seek testing (and treatment if indicated) from your medical provider or home test kit. ?? You can view and manage your care through the patient portal or by using a health care edita of your choosing. [email or web address] is a website that allows you to securely view your medical information including your hospital discharge summary, office visit summaries, medications and follow-up visits. You can also request appointments, renew medications, and request access to your medical information using a health care edita of your choosing, or just ask a question. You can enroll at [email or web address] or register during your next office visit. You have been discharged from [facility], Patient Care Unit: D3B. If you have any questions regarding these instructions after you leave, please call us and we will be happy to assist you. [facility] Your Care Team Attending Physician Ericka Pérez MD Consulting Providers Scotty STOVER, Ana; Kamala STOVER, Leonor Discharging Providers Ericka Pérez MD Reason for Admission General medical Your Diagnosis Acute cholecystitis CAD (coronary artery disease) Hypertensive heart disease SONIDO (generalized anxiety disorder) Tests Performed Below is a partial list of the tests performed during your hospitalization. You may have had other tests and procedures not included in this list. Please discuss all test results with your provider. B Type Natriuretic Peptide Basic Metabolic Panel BUN Calcium Level CBC CBC w/ Differential Comprehensive Metabolic Panel Creatinine Electrolytes Glucose Level HEPATIC FUNCTION PANEL High??Sensitivity??Troponin T Hold Blue Top Tube INR Lipase PTT Troponin T, High Sensitivity CT Abd/Pelvis W/ IV Contrast Only NM HIDA Scan W/O Ejection Fraction US Guide Needle Place XR Chest 2 Views Frontal and Lat Primary Care Provider Kelly STOVER, Jerman De León Advance Directive Health Care Proxy on File Yes - Health Care Proxy Discharge Vitals Temperature: 97.9 DegF Height: 157 cm Pulse Rate: 72 bpm Weight: 69 kg Respiratory Rate: 20 br/min Body Mass Index:??27.99 kg/m2??High Systolic Blood Pressure: 124 mm Hg Body surface area: 1.73 Diastolic Blood Pressure: 58 mm Hg ?? Oxygen Saturation: 99 % ?? Studies Pending All tests and labs ordered during this hospital stay have been completed unless listed below. Please discuss all pending results with your provider listed above in these instructions. ?? Add On Lab Order Anaerobic Culture Wound Deep Culture w/ Gram Smear (DEEP WOUND CULTURE) What to do next Instructions From Your Doctor Discharge Orders You Need to Schedule the Following Appointments Follow Up with??Scotty STOVER, Ana When:??Within 1 to 2 weeks Discharge Medications DENISE SHARP :1940 Visit Date:06/17/2023 Medications: Please continue your medications until treatment is completed or stopped by your provider. Medications not listed below should be discontinued. Discuss any questions related to medications with your provider. What How Much When Instructions Next Dose New Amoxicillin-Clavulanate (amoxicillin-clavulanate 875 mg-125 mg oral tablet) 1 tab(s) Oral Twice a day Duration: 7 Days Patient has no allergy to penicillin already taking medication in the hospital ?? Pickup at [facility] 3 9AM/9PM New Carvedilol (Coreg 25 mg oral tablet) 25 Milligram Oral Twice a day Duration: 30 Days Pt is on Nebivolol 10 mg po daily. Conversion is Coreg 25 bid. May adjust dose per evidence. ?? Pickup at [facility] 3 Tonight 9PM New Docusate (Docusate Sodium Capsule) 100 Milligram Oral Twice a day as needed for Constipation As needed Changed Clonazepam (clonazePAM 0.5 mg oral tablet) 1 tab(s) Oral Twice a day Duration: 2 Days Printed Prescription Resume home schedule Unchanged Aspirin (aspirin 81 mg oral delayed release tablet) 1 tab(s) Oral Daily Tomorrow AM Unchanged Cholecalciferol (cholecalciferol 1000 intl units oral tablet) 1 tab(s) Oral Daily Tomorrow AM Unchanged Levothyroxine (levothyroxine 75 mcg (0.075 mg) oral tablet) 1 tab(s) Oral Daily Tomorrow AM Unchanged Multivitamin (Super B Complex Vitamin B Complex oral tablet) 1 tab(s) Oral Daily Tomorrow AM Unchanged Nortriptyline (nortriptyline 50 mg oral capsule) 1 capsule Oral Daily Tomorrow AM Unchanged Simvastatin (simvastatin 40 mg oral tablet) 1 tab(s) Oral Daily at Bedtime Bedtime Pharmacy Information [facility] 3: [address], [place] [phone] ?? What How Much When Comments Stop Taking hydrochlorothiazide-olmesartan (Benicar HCT 12.5 mg-40 mg oral tablet) 1 tab(s) Oral Daily Stop Taking Nebivolol (nebivolol 10 mg oral tablet) 1 tab(s) Oral Daily Test Results Below is a partial list of the most recent Laboratory test results done prior to this discharge. You may have had other tests and procedures not included in this list. Please discuss all test resultswith your provider. Est Creatinine Clearance - 42.51 mL/min (06/20/2023) B Type Natriuretic Peptide (06/17/2023) ???Nt-Probnp - 111 pg/mL Basic Metabolic Panel (06/17/2023) ???Sodium - 142 mmol/L???Potassium - 3.9 mmol/L???Chloride - 106 mmol/L???Bicarbonate Level - 27 mmol/L???Anion Gap - 9???Glucose Level - 119 mg/dL???BUN - 13 mg/dL???Creatinine-Blood - 0.9 mg/dL???Estimated GFR Creatinine - 61 ML/MIN/1.73 M2???Calcium - 9.1 mg/dL BUN (06/20/2023) ???BUN - 8 mg/dL Calcium Level (06/20/2023) ???Calcium - 7.9 mg/dL CBC (06/20/2023) ???WBC - 11.0 k/mm3???RBC - 3.94 m/mm3???Hgb - 11.4 Gm/dL???Hct - 34.2 %???MCV - 86.8 femtoliters???MCH - 28.9 pg???MCHC - 33.3 g/dL???Platelet Count - 203 k/mm3???RDW-SD - 39.6 femtoliters???MPV - 10.3 femtoliters???Nucleated RBC (Automated) - 0.0 #/100 WBC'S???Abs. NRBC - 0.0 k/mm3 CBC w/ Differential (06/17/2023) ???WBC - 8.5 k/mm3???RBC - 4.57 m/mm3???Hgb - 13.5 Gm/dL???Hct - 41.1 %???MCV - 89.9 femtoliters???MCH - 29.5 pg???MCHC - 32.8 g/dL???Platelet Count - 228 k/mm3???RDW-SD - 41.3 femtoliters???MPV - 9.9 femtoliters???Nucleated RBC (Automated) - 0.0 #/100 WBC'S???Abs. NRBC - 0.0 k/mm3???Abs. Neut - 5.8 k/mm3???Abs. Lymph - 1.9 k/mm3???Abs. [place] - 0.6 k/mm3???Abs. Eo - 0.1 k/mm3???Abs. Baso - 0.0 k/mm3???Neut % - 68.3 %???Lymph % - 22.9 %???[place] % - 7.4 %???Eos % - 0.8 %???Baso % - 0.4 %???Imm Gran- 0.2 %???Abs. Imm Gran - 0.0 k/mm3 Comprehensive Metabolic Panel (06/18/2023) ???Sodium - 141 mmol/L???Potassium - 3.2 mmol/L???Chloride - 106 mmol/L???Bicarbonate Level - 23 mmol/L???Anion Gap - 12???Glucose Level - 117 mg/dL???BUN - 9 mg/dL???Creatinine-Blood - 0.9 mg/dL???Estimated GFR Creatinine - 66 ML/MIN/1.73 M2???Calcium - 8.6 mg/dL???Protein, Total - 5.3 Gm/dL???Albumin - 3.6 Gm/dL???AG Ratio - 2.1???Alkaline Phosphatase - 68 units/L???AST (SGOT) - 14 units/L???ALT (SGPT) - 14 units/L???Bilirubin, Total - 0.5 mg/dL Creatinine (06/20/2023) ???Creatinine-Blood - 0.8 mg/dL???Estimated GFR Creatinine - 78 ML/MIN/1.73 M2 Electrolytes (06/20/2023) ???Sodium - 139 mmol/L???Potassium - 3.8 mmol/L???Chloride - 104 mmol/L???Bicarbonate Level - 22 mmol/L???Anion Gap - 13 Glucose Level (06/20/2023) ???Glucose Level - 125 mg/dL HEPATIC FUNCTION PANEL (06/17/2023) ???Protein, Total - 6.4 Gm/dL???Albumin - 4.3 Gm/dL???Alkaline Phosphatase - 91 units/L???AST (SGOT) - 25 units/L? ?ALT (SGPT) - 22 units/L? ?Bilirubin, Total - 0.5 mg/dL? ?Bilirubin, Direct - <0.2 mg/dL???Bilirubin, Indirect - Direct bilirubin is less than the measureable limit. Therefore, indirect High??Sensitivity??Troponin T (06/17/2023) ???High Sensitivity Troponin (HSTnT) - HEMOLYZED Hold Blue Top Tube (06/17/2023) ???Hold Blue Top - SPECIMEN DISCARDED AFTER 4 HOURS. INR (06/18/2023) ???INR - 1.1???Protime (PT) - 11.7 seconds Lipase (06/17/2023) ???Lipase - 27 units/L PTT (06/18/2023) ???APTT - 30.2 seconds Troponin T, High Sensitivity (06/18/2023) ???High Sensitivity Troponin (HSTnT) - 21 ng/L Allergies (NKA means No Known Allergies) penicillin Problems No qualifying data available Education Materials Below is the list of Educational Leaflet Providered with your Discharge Instructions. Valuables and Belongings I fully understand and agree that [facility] accepts no responsibility for all my personal property including clothing, toilet articles, radios, jewelry, dentures, hearing aids, rings, money, or any other property that is in my possession or is brought to me after admission. I understand certain valuables may be placed in a hospital safe for a short period of time. I understand that the hospital is not liable for loss or damage due to accident, fire, or other natural occurrence while said property is in the safe. I accept full responsibility for any personal property that I keep with me, and will not hold the hospital responsible in case of loss or disappearance. I acknowledge that i have been encouraged to send valuables and belongings home. ?? No Valuables/Belongings: No valuables/belongings present Review of Valuable and Belonging List: With patient Date for Pt to Sign Valuables/Belongings: 06/18/23 06:24:00 ?? Other Discharge Information ? Case Management Discharge Plan?? Discharge Plan?? Discharge Agency Information?? Discharge Level of Care at Discharge: Homehealth/VNA Name of Agency #1: [facility] Discharge VNA/Hospice/Home Care: Daniela Service Categories #1: Alf ?? Service Comments #1: [facility] will call you to coordinate Homecare Visits ?? Pulmonary Rehab Status?? Pulmonary Rehab Discharge Status?? Respiratory Rate: 20 br/min ? Common Emergency Awareness Tips IS IT A STROKE? Act FAST and Check for these signs: FACE Does the face look uneven? ARM Does one arm drift down? SPEECH Does their speech sound strange? TIME Call at any sign of stroke ?? Heart Attack Signs Chest discomfort: Most heart attacks involve discomfort in the center of the chest and lasts more than a few minutes, or goes away and comes back. It can feel like uncomfortable pressure, squeezing, fullness or pain. Discomfort in upper body: Symptoms can include pain or discomfort in one or both arms, back, neck, jaw or stomach. Shortness of breath: With or without discomfort. Other signs: Breaking out in a cold sweat, nausea, or lightheaded. Remember, MINUTES DO MATTER. If you experience any of these heart attack warning signs, call to get immediate medical attention! ?? Smoking can increase your chances of developing chronic health problems and can cause harmful effects to other family members in your house. If you smoke, you are strongly encouraged to quit. Please call [facility] at [phone] or [phone] ([phone]) or log in to [email or web address] for referrals to smoking cessation programs. ?? 818 Suicide & Crisis Lifeline is available 08/01 if you or someone you know needs to find a reason to keep living. By calling 541 you'll be connected to a skilled, trained counselor at a crisis center in your area. INPATIENT DISCHARGE INSTRUCTIONS SIGNATURE PAGE DENISE SHARP Location:[facility] Registration Date and Time:06/17/2023 22:12 RUST Primary Care Physician: Kelly STOVER, Jerman De León, Attending Physician: Ericka Pérez MD, I DENISE SHARP, have received the above patient education materials/instructions and have verbalized understanding. If ambulance or transport services are being used I further acknowledge being given a choice of service. ?? If you need to contact me, please call me at this number: . Patient/Survival Equipment Repairer Name: Patient/Survival Equipment Repairer Signature: Relationship to Patient: Witness Name/Signature: Date: * Arianna Cali RN: PERFORM Event Display: Patient Education/Instruction Authored Date: [id number] Inpatient Adult Discharge Instructions [place] [id number] Name: DENISE SHARP : 1940 Visit: 06/17/2023 22:12:00 Current Date: 06/20/2023 12:16 Account: [id number] Inpatient Adult Discharge Instructions We would like to thank you for allowing us to assist you with your healthcare needs. The following includes patient education materials and information regarding your injury/illness. Our entire staffstrives to provide an excellent experience for our patients and their families. PLEASE ENSURE YOU FOLLOW-UP PER THE INSTRUCTIONS BELOW! ?? YOUR OPINION IS IMPORTANT TO US! Please complete the survey you may receive by mail or email. Your feedback will be used to make improvements to the healthcare experiences of our patients and their families. Surveys are administered by [employer] ?? If further treatment with your primary care physician or another doctor is recommended, it is important for you to keep the appointment. Call your primary care physician or return to the Emergency Department immediately if your condition worsens, fails to improve, or new symptoms develop. If you need to find a doctor, you can call [facility] for a referral at [phone] or toll free at [phone]) or log in to [email or web address].. ?? [facility], in keeping with [facility] guidance, no longer requires face masks for staff, patientsor visitors in most situations. Similiar to time spent indoors at other locations, there is the chance that you were exposed to repiratory viruses during your time with us (such as flu or COVID-19). If you develop symptoms concerning for a viral respiratory infection, please seek testing (and treatment if indicated) from your medical provider or home test kit. ?? You can view and manage your care through the patient portal or by using a health care edita of your choosing. [email or web address] is a website that allows you to securely view your medical information including your hospital discharge summary, office visit summaries, medications and follow-up visits. You can also request appointments, renew medications, and request access to your medical information using a health care edita of your choosing, or just ask a question. You can enroll at [email or web address] or register during your next office visit. You have been discharged from [facility], Patient Care Unit: D3B. If you have any questions regarding these instructions after you leave, please call us and we will be happy to assist you. [facility] Your Care Team Attending Physician Ericka Pérez MD Consulting Providers Ana Fajardo MD; Kamala STOVER, Leonor Discharging Providers Ericka Pérez MD Reason for Admission General medical Your Diagnosis Acute cholecystitis CAD (coronary artery disease) Hypertensive heart disease SONIDO (generalized anxiety disorder) Tests Performed Below is a partial list of the tests performed during your hospitalization. You may have had other tests and procedures not included in this list. Please discuss all test results with your provider. B Type Natriuretic Peptide Basic Metabolic Panel BUN Calcium Level CBC CBC w/ Differential Comprehensive Metabolic Panel Creatinine Electrolytes Glucose Level HEPATIC FUNCTION PANEL High??Sensitivity??Troponin T Hold Blue Top Tube INR Lipase PTT Troponin T, High Sensitivity CT Abd/Pelvis W/ IV Contrast Only NM HIDA Scan W/O Ejection Fraction US Guide Needle Place XR Chest 2 Views Frontal and Lat Primary Care Provider Kelly STOVER, Jerman De León Advance Directive Health Care Proxy on File Yes - Health Care Proxy Discharge Vitals Temperature: 97.9 DegF Height: 157 cm Pulse Rate: 72 bpm Weight: 69 kg Respiratory Rate: 20 br/min Body Mass Index:??27.99 kg/m2??High Systolic Blood Pressure: 124 mm Hg Body surface area: 1.73 Diastolic Blood Pressure: 58 mm Hg ?? Oxygen Saturation: 99 % ?? Studies Pending All tests and labs ordered during this hospital stay have been completed unless listed below. Please discuss all pending results with your provider listed above in these instructions. ?? Add On Lab Order Anaerobic Culture Wound Deep Culture w/ Gram Smear (DEEP WOUND CULTURE) What to do next Instructions From Your Doctor Discharge Orders You Need to Schedule the Following Appointments Follow Up with??Scotty STOVER, Aan When:??Within 1 to 2 weeks Discharge Medications DENISE SHARP :1940 Visit Date:06/17/2023 Medications: Please continue your medications until treatment is completed or stopped by your provider. Medications not listed below should be discontinued. Discuss any questions related to medications with your provider. What How Much When Instructions Next Dose New Amoxicillin-Clavulanate (amoxicillin-clavulanate 875 mg-125 mg oral tablet) 1 tab(s) Oral Twice a day Duration: 7 Days Patient has no allergy to penicillin already taking medication in the hospital ?? Pickup at [facility] 3 9AM/9PM New Carvedilol (Coreg 25 mg oral tablet) 25 Milligram Oral Twice a day Duration: 30 Days Pt is on Nebivolol 10 mg po daily. Conversion is Coreg 25 bid. May adjust dose per evidence. ?? [facility] [facility] Tonight 9PM New Docusate (Docusate Sodium Capsule) 100 Milligram Oral Twice a day as needed for Constipation As needed Changed Clonazepam (clonazePAM 0.5 mg oral tablet) 1 tab(s) Oral Twice a day Duration: 2 Days Printed Prescription Resume home schedule Unchanged Aspirin (aspirin 81 mg oral delayed release tablet) 1 tab(s) Oral Daily Tomorrow AM Unchanged Cholecalciferol (cholecalciferol 1000 intl units oral tablet) 1 tab(s) Oral Daily Tomorrow AM Unchanged Levothyroxine (levothyroxine 75 mcg (0.075 mg) oral tablet) 1 tab(s) Oral Daily Tomorrow AM Unchanged Multivitamin (Super B Complex Vitamin B Complex oral tablet) 1 tab(s) Oral Daily Tomorrow AM Unchanged Nortriptyline (nortriptyline 50 mg oral capsule) 1 capsule Oral Daily Tomorrow AM Unchanged Simvastatin (simvastatin 40 mg oral tablet) 1 tab(s) Oral Daily at Bedtime Bedtime Pharmacy Information [facility] 3: [address], [place] [id number] [phone] ?? What How Much When Comments Stop Taking hydrochlorothiazide-olmesartan (Benicar HCT 12.5 mg-40 mg oral tablet) 1 tab(s) Oral Daily Stop Taking Nebivolol (nebivolol 10 mg oral tablet) 1 tab(s) Oral Daily Test Results Below is a partial list of the most recent Laboratory test results done prior to this discharge. You may have had other tests and procedures not included in this list. Please discuss all test resultswith your provider. Est Creatinine Clearance - 42.51 mL/min (06/20/2023) B Type Natriuretic Peptide (06/17/2023) ???Nt-Probnp - 111 pg/mL Basic Metabolic Panel (06/17/2023) ???Sodium - 142 mmol/L???Potassium - 3.9 mmol/L???Chloride - 106 mmol/L???Bicarbonate Level - 27 mmol/L???Anion Gap - 9???Glucose Level - 119 mg/dL???BUN - 13 mg/dL???Creatinine-Blood - 0.9 mg/dL???Estimated GFR Creatinine - 61 ML/MIN/1.73 M2???Calcium - 9.1 mg/dL BUN (06/20/2023) ???BUN - 8 mg/dL Calcium Level (06/20/2023) ???Calcium - 7.9 mg/dL CBC (06/20/2023) ???WBC - 11.0 k/mm3???RBC - 3.94 m/mm3???Hgb - 11.4 Gm/dL???Hct - 34.2 %???MCV - 86.8 femtoliters???MCH - 28.9 pg???MCHC - 33.3 g/dL???Platelet Count - 203 k/mm3???RDW-SD - 39.6 femtoliters???MPV - 10.3 femtoliters???Nucleated RBC (Automated) - 0.0 #/100 WBC'S???Abs. NRBC - 0.0 k/mm3 CBC w/ Differential (06/17/2023) ???WBC - 8.5 k/mm3???RBC - 4.57 m/mm3???Hgb - 13.5 Gm/dL???Hct - 41.1 %???MCV - 89.9 femtoliters???MCH - 29.5 pg???MCHC - 32.8 g/dL???Platelet Count - 228 k/mm3???RDW-SD - 41.3 femtoliters???MPV - 9.9 femtoliters???Nucleated RBC (Automated) - 0.0 #/100 WBC'S???Abs. NRBC - 0.0 k/mm3???Abs. Neut - 5.8 k/mm3???Abs. Lymph - 1.9 k/mm3???Abs. [place] - 0.6 k/mm3???Abs. Eo - 0.1 k/mm3???Abs. Baso - 0.0 k/mm3???Neut % - 68.3 %???Lymph % - 22.9 %???[place] % - 7.4 %???Eos % - 0.8 %???Baso % - 0.4 %???Imm Gran- 0.2 %???Abs. Imm Gran - 0.0 k/mm3 Comprehensive Metabolic Panel (06/18/2023) ???Sodium - 141 mmol/L???Potassium - 3.2 mmol/L???Chloride - 106 mmol/L???Bicarbonate Level - 23 mmol/L???Anion Gap - 12???Glucose Level - 117 mg/dL???BUN - 9 mg/dL???Creatinine-Blood - 0.9 mg/dL???Estimated GFR Creatinine - 66 ML/MIN/1.73 M2???Calcium - 8.6 mg/dL???Protein, Total - 5.3 Gm/dL???Albumin - 3.6 Gm/dL???AG Ratio - 2.1???Alkaline Phosphatase - 68 units/L???AST (SGOT) - 14 units/L???ALT (SGPT) - 14 units/L???Bilirubin, Total - 0.5 mg/dL Creatinine (06/20/2023) ???Creatinine-Blood - 0.8 mg/dL???Estimated GFR Creatinine - 78 ML/MIN/1.73 M2 Electrolytes (06/20/2023) ???Sodium - 139 mmol/L???Potassium - 3.8 mmol/L???Chloride - 104 mmol/L???Bicarbonate Level - 22 mmol/L???Anion Gap - 13 Glucose Level (06/20/2023) ???Glucose Level - 125 mg/dL HEPATIC FUNCTION PANEL (06/17/2023) ???Protein, Total - 6.4 Gm/dL???Albumin - 4.3 Gm/dL???Alkaline Phosphatase - 91 units/L???AST (SGOT) - 25 units/L? ?ALT (SGPT) - 22 units/L? ?Bilirubin, Total - 0.5 mg/dL? ?Bilirubin, Direct - <0.2 mg/dL???Bilirubin, Indirect - Direct bilirubin is less than the measureable limit. Therefore, indirect High??Sensitivity??Troponin T (06/17/2023) ???High Sensitivity Troponin (HSTnT) - HEMOLYZED Hold Blue Top Tube (06/17/2023) ???Hold Blue Top - SPECIMEN DISCARDED AFTER 4 HOURS. INR (06/18/2023) ???INR - 1.1???Protime (PT) - 11.7 seconds Lipase (06/17/2023) ???Lipase - 27 units/L PTT (06/18/2023) ???APTT - 30.2 seconds Troponin T, High Sensitivity (06/18/2023) ???High Sensitivity Troponin (HSTnT) - 21 ng/L Allergies (NKA means No Known Allergies) penicillin Problems No qualifying data available Education Materials Below is the list of Educational Leaflet Providered with your Discharge Instructions. Valuables and Belongings I fully understand and agree that [facility] accepts no responsibility for all my personal property including clothing, toilet articles, radios, jewelry, dentures, hearing aids, rings, money, or any other property that is in my possession or is brought to me after admission. I understand certain valuables may be placed in a hospital safe for a short period of time. I understand that the hospital is not liable for loss or damage due to accident, fire, or other natural occurrence while said property is in the safe. I accept full responsibility for any personal property that I keep with me, and will not hold the hospital responsible in case of loss or disappearance. I acknowledge that i have been encouraged to send valuables and belongings home. ?? No Valuables/Belongings: No valuables/belongings present Review of Valuable and Belonging List: With patient Date for Pt to Sign Valuables/Belongings: 06/18/23 06:24:00 ?? Other Discharge Information ? Pulmonary Rehab Status?? Pulmonary Rehab Discharge Status?? Respiratory Rate: 20 br/min ? Common Emergency Awareness Tips IS IT A STROKE? Act FAST and Check for these signs: FACE Does the face look uneven? ARM Does one arm drift down? SPEECH Does their speech sound strange? TIME Call at any sign of stroke ?? Heart Attack Signs Chest discomfort: Most heart attacks involve discomfort in the center of the chest and lasts more than a few minutes, or goes away and comes back. It can feel like uncomfortable pressure, squeezing, fullness or pain. Discomfort in upper body: Symptoms can include pain or discomfort in one or both arms, back, neck, jaw or stomach. Shortness of breath: With or without discomfort. Other signs: Breaking out in a cold sweat, nausea, or lightheaded. Remember, MINUTES DO MATTER. If you experience any of these heart attack warning signs, call to get immediate medical attention! ?? Smoking can increase your chances of developing chronic health problems and can cause harmful effects to other family members in your house. If you smoke, you are strongly encouraged to quit. Please call [employer] Link at [phone] or [phone] Practice (7234) or log in to [email or web address] for referrals to smoking cessation programs. ?? 988 Suicide & Crisis Lifeline is available 08/01 if you or someone you know needs to find a reason to keep living. By calling 988 you'll be connected to a skilled, trained counselor at a crisis center in your area. INPATIENT DISCHARGE INSTRUCTIONS SIGNATURE PAGE DENISE SHARP Location:[facility] Registration Date and Time:06/17/2023 22:12 EST Primary Care Physician: Kelly STOVER, Jerman De León, Attending Physician: Ericka Pérez MD, I DENISE SHARP, have received the above patient education materials/instructions and have verbalized understanding. If ambulance or transport services are being used I further acknowledge being given a choice of service. ?? If you need to contact me, please call me at this number: . Patient/Survival Equipment Repairer Name: Patient/Survival Equipment Repairer Signature: Relationship to Patient: Witness Name/Signature: Date: Patient Care team information Care Team Personnel Name: Arianna Cali RN Position: [facility] RN Member Role: Primary Care Nurse Name: Shannon Weeks RN Position: [facility] RN Member Role: Primary Care Nurse Name: Gracy Wu RN Position: [facility] ED RN W/OE and Tasks Member Role: Primary Care Nurse Name: Alma Gray RN Position: [facility] RN Member Role: Primary Care Nurse Name: Kelly STOVER, Jerman De León Position: Reference Physician Member Role: PCP Address: Address: [address] [place], [place] - Name: Tucker SANTILLAN Attending Position: [facility] ED Medicine MD Name: Wilda Lopez DO Position: [facility] Resident Member Role: ED Resident Address: Address: [address] [place] [address] [place] [address]- Name: Margo Stephen RN Position: [facility] ED RN W/OE and Tasks Member Role: Patient Care Provider Name: Albina Jones Position: [facility] ED TA [facility] Member Role: Manager Tele[employer] Care Team Related Persons Name: MADISYN SHARP Address: home [address], [place] Name: ALE SHARP Address: home [address], [place] Name: ARTEM SHARP Address: home [facility]
--- OUTSIDE RECORDS SUMMARY | 2023-09-17 14:06 | XMS_ITS | Continuity of Care Document ---
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 Name Role Phone Hilton STOVER, Lucian Primary Care Physician [place] [facility] [place]/23/23 - 07/25/[address] [address]- Encounter Diagnosis Hypovolemic shock(Final) - 07/23/23 GI bleed(Final) - 07/23/23 Anemia(Final) - 07/23/23 Hypovolemic shock(Final) - 07/23/23 GI bleed(Final) - 07/23/23 Anemia(Final) - 07/23/23 Anemia(Final) - 07/23/23 GI bleed(Final) - 07/23/23 Hypovolemic shock(Final) - 07/23/23 Discharge Disposition: Transfer Longterm Care Attending Physician: Kely Eric MD Admitting Physician: Arcadio Anthony MD Referring Physician: Not on Staff, Referring MD Allergies, Adverse Reactions, Alerts Substance Reaction Severity Status penicillin 1 Active 1doesn't remember reaction Immunizations Given and Recorded Vaccine Date Status Refusal Reason SARS-CoV-2 (COVID-19) mRNA BNT-162b2 vac 05/01/21 Recorded SARS-CoV-2 (COVID-19) mRNA BNT-162b2 vac 08/31/20 Recorded SARS-CoV-2 (COVID-19) mRNA BNT-162b2 vac 08/08/20 Recorded Medications aspirin 81 mg oral delayed release tablet = 81 mg, By Mouth, Daily, # 90 tablet, 0 Refills, Maintenance, 07/25/23 13:54:00 EST, EC Tablet, [facility], Partial fill upon patient request if the prescription is for a schedule II opioid drug., 158.2, cm, 07/23/23 7:23:00 EST, Height... Start Date: 07/25/23 Status: Ordered atorvastatin 80 mg oral tablet = 80 mg, By Mouth, Daily at bedtime, # 90 tablet, 3 Refills, Maintenance, 07/25/23 13:36:00 EST, Tablet, [facility], Partial fill upon patient request if the prescription is for a schedule II opioid drug., 158.2, cm, 07/23/23 7:23:00 EST... Start Date: 07/25/23 Status: Ordered cholecalciferol 1000 intl units oral [...] Date: 06/20/23 Stop Date: 06/22/23 Status: Ordered levothyroxine 75 mcg (0.075 mg) oral tablet 1 tablet = 75 mcg, By Mouth, Daily, # 60 tablet, 0 Refills, Maintenance, 08/14/22 6:20:00 EST, Tablet, Partial fill upon patient request if the prescription is for a schedule II opioid drug. Start Date: 08/14/22 Status: Ordered metoprolol 25 mg oral tablet 12.5 mg, Tablet, By Mouth, 07/23/23 21:27:00 EST Start Date: 07/23/23 Stop Date: 07/23/23 Status: Completed metoprolol 25 mg oral tablet 12.5 mg, Tablet, By Mouth, 07/24/23 9:00:00 EST Start Date: 07/24/23 Stop Date: 07/24/23 Status: Completed metoprolol 25 mg oral tablet 25 mg, By Mouth, Daily, # 90 tablet, Refills 3, Tot. Refills 3, Maintenance, 07/25/23 16:09:00 EST,Route to Pharmacy Electronically, [facility], Partial fill upon patient request if the prescription is for a schedule II opioid drug., 15... Start Date: 07/25/23 Status: Ordered metoprolol 25 mg oral tablet 12.5 mg, Tablet, By Mouth, GUNJAN, 07/25/23 10:07:00 EST Start Date: 07/25/23 Stop Date: 07/25/23 Status: Completed nortriptyline 50 mg oral capsule 50 mg, 1, capsule, By Mouth, Daily, Refills 0, Maintenance, 08/14/22 6:17:00 EST, Partial fill uponpatient request if the prescription is for a schedule II opioid drug. Start Date: 08/14/22 Status: Ordered pantoprazole 40 mg oral delayed release tablet = 40 mg, By Mouth, 2 times a day, # 90 tablet, 0 Refills, Maintenance, 07/25/23 13:35:00 EST, EC Tablet, 158.2, cm, 07/23/23 7:23:00 EST, Height, 67.8, kg, 07/11/23 5:32:00 EST, Dry Weight Start Date: 07/25/23 Status: Ordered simethicone 80 mg oral tablet, chewable 80 mg, 1, tablet, Chew, 3 times a day, PRN, for 14 days, # 36 tablet, Refills 0, Tot. Refills 0, Acute 07/31/23 12:56:00 EST, Gas, 07/17/23 12:56:00 EST, Route to Pharmacy Electronically, [facility], Partial fill upon patient request if... Start Date: 07/17/23 Stop Date: 07/31/23 Status: Ordered Super B Complex Vitamin B Complex oral tablet 1 tablet, By Mouth, Daily, # 30 tablet, 0 Refills, Maintenance, 08/14/22 6:22:00 EST, Tablet, Partial fill upon patient request if the prescription is for a schedule II opioid drug. Start Date: 08/14/22 Status: Ordered Problem List Condition Confirmation Course Effective Dates Status H ealth Status Informant Anxiety Confirmed Active HTN (hypertension) Confirmed Active Hypothyroidism Confirmed Active Left main coronary artery disease Confirmed Active Results Orders for Microbiology Reports Name Date Blood Culture 07/23/23 Blood Culture #2 07/23/23 Microbiology Reports TEST:Blood Culture STATUS:Auth (Verified) BODY SITE: SOURCE:Blood COLLECTED DATE/TIME:07/23/23 3:06 AM Blood Culture SPECIMEN DESCRIPTION : BLOOD RA SPECIAL REQUESTS : CRITICAL VALUE CALLED AND VERIFIED BY READBACK FOR: [place] [address], D4 ON 07/24/23 AT 12:11 BY TECH [id number] CULTURE : STAPHYLOCOCCUS EPIDERMIDIS SUSCEPTIBILITY TESTING NOT ROUTINELY PERFORMED ON THIS ISOLATE. This isolate was identified using Maldi-TOF system Single isolates of coagulase negative Staphylococcus, Micrococcus sp., Bacillus sp., Corynebacterium sp. (or Diptheroids), Aerococcus sp., Cutibacterium (formerly Propionibacterium) acnes and Viridans group streptococci could be skin contaminates. Multiple isolates of these organisms are more likely to be signficant. Staphylococcus epidermidis was identified by multi-plex PCR REPORT STATUS : FINAL 07/25/2023 TEST:Blood Culture, Second Order STATUS:Unauthenticated BODY SITE: SOURCE:Blood COLLECTED DATE/TIME:07/23/23 1:59 AM Blood Culture, Second Order SPECIMEN DESCRIPTION : BLOOD L A SPECIAL REQUESTS : NONE CULTURE : NO GROWTH AFTER 48 HOURS REPORT STATUS : PRELIMINARY REPORT Radiology Reports * Exam Date Time Procedure Performing Provider Status 07/23/23 2:10 PM US Doppler Ext Lower Venous Bilat Greer Peters; Auth (Verified) Notes: (US Doppler Ext Lower Venous Bilat) Reason For Exam: hx DVT, ?extension;Other: RESULT: US Doppler Ext Lower Venous Bilat US Doppler Ext Lower Venous Bilat Reason: hx DVT, ?extension; Clinical Question(s): Thrombosis; Order Comment: 07 23 2023 07:49:09 LUCILA STOVER would like bilat. even though pt. only had right calf v. thrombus on 07 17. COMPARISON: 07/17/2023 IMAGING TECHNIQUE: Streamlined portable ultrasound of the lower extremity deep venous system was performed using grayscale, color, and spectral Doppler ultrasound from the common femoral through the popliteal vein assessing for complete compressibility and good response to compression and augmentation. The calf veins are not assessed. FINDINGS: RIGHT LOWER EXTREMITY: Common femoral vein: Patent. No thrombosis. Femoral vein: Patent. No thrombosis. Popliteal vein: Patent. No thrombosis. LEFT LOWER EXTREMITY: Common femoral vein: Patent. No thrombosis. Femoral vein: Patent. No thrombosis. Popliteal vein: Patent. No thrombosis. OTHER FINDINGS: None. IMPRESSION: No evidence of deep venous thrombosis from the groin through the popliteal vein. Calf veins not assessed with portable technique and previously demonstrated right posterior tibial vein thrombus is not imaged, but no extension of thrombus into popliteal vein identified. WSN: [id number] Ordering Physician: Zaire Arreola Dictated By: Inocencio Jean MD Dictated Date/Time: 07/23/23 2:38 pm Reviewed By: Inocencio Jean MD Signed By: Inocencio Jean MD Signed Date/Time: 07/23/23 2:38 pm Transcribed By: BRANDIN Transcribed Date/Time: 07/23/23 2:35 pm * Exam Date Time Procedure Performing Provider Status 07/23/23 9:50 AM Chest Portable Lorenzo Clifford; Susan (Verified) Notes: (Chest Portable) Reason For Exam: Tube Placement RESULT: Chest Portable Chest Portable Reason: Tube Placement; Clinical Question(s): Tube Placement COMPARISON: Multiple prior chest radiographs with the most recent dated 07/19/2023 at 3:39 AM. FINDINGS: LINES AND TUBES: An endotracheal tube has appeared since the prior examination with its tip about 3.5 cm in above the carmen in satisfactory position. Partially visualized drainage catheters seen in the right upper quadrant of the abdomen. LUNGS AND PLEURA: Low lung volumes with mild bibasilar atelectasis. Normal pulmonary vascularity. No pleural effusion. No pneumothorax. HEART, MEDIASTINUM AND ELZA: Heart is normal in size. Moderate tortuosity and dilatation of the thoracic aorta. BONES AND SOFT TISSUES: No acute abnormality. IMPRESSION: Low lung volumes with mild bibasilar atelectasis. WSN: [id number] Ordering Physician: Dario Jimenez Dictated By: Ovidio Obregon MD, V Dictated Date/Time: 07/23/23 10:54 a Reviewed By: Ovidio Obregon MD, V Signed By: Ovidio Obregon MD, V Signed Date/Time: 07/23/23 10:54 am Transcribed By: BRANDIN Transcribed Date/Time: 07/23/23 10:44 am * Exam Date Time Procedure Performing Provider Status 07/23/23 3:[address] Angio Abdomen and Pelvis Judd Montenegro (Verified) Notes: (CT Angio Abdomen and Pelvis) Reason For Exam: GI bleed;Other: RESULT: CT Angio Abdomen and Pelvis CT Angio Abdomen and Pelvis INDICATION: Hx of Present Illness: Vomiting, urinating, deficating blood; Reason: Other:; GI bleed;Clinical Question(s): Other:; Intestinal Bleeding; Order Comment: , Other: COMPARISON: CT abdomen and pelvis 07/16/2023. TECHNIQUE: Unenhanced axial images were obtained from diaphragm through the pelvis before, during (arterial) and after (portal venous) the intravenous administration of iodinated contrast. 100 cc of Omnipaque 300 was administered intravenously. Sagittal and coronal maximum intensity projection (MIP) images were reconstructed and rendered in both arterial and venous phases. Weight-based protocol using automatic tube modulation was used to optimize exposure parameters. RADIATION DOSE PARAMETERS: CTDIvol Body: 12.70 mGy, DLP Body: 1552 mGy*cm. VASCULAR FINDINGS: A subtle intraluminal hyperdensity in the second portion of the duodenum, noted only in arterial phase and venous phase (series 502, image 291) (series 602, image 285). Abdominal aorta: Moderate atherosclerotic calcification throughout the aorta and its branches. No dissection or aneurysm. Celiac axis: Patent. Superior mesenteric artery: Patent. Right renal artery: Patent. Left renal artery: Patent. Inferior mesenteric artery: Patent. Right common iliac artery: Patent. Right internal iliac artery: Patent. Right external iliac artery: Patent. Right common femoral artery: Patent. Visualized right superficial and deep femoral arteries: Patent. Left common iliac artery: Patent. Left internal iliac artery: Patent. Left external iliac artery: Patent. Left common femoral artery: Patent. Visualized left superficial and deep femoral arteries: Patent. IVC and hepatic veins: Patent. Portal vein: Patent. Splenic vein: Patent. Superior mesenteric vein: Patent. Inferior mesenteric vein: Patent. Iliac and femoral veins: Patent. NONVASCULAR FINDINGS: Visualized Chest: Mild bibasilar atelectasis. No pleural effusion. The heart is normal in size. No pericardial effusion. Diaphragm: Normal. Liver: Normal. Gallbladder: Percutaneous cholecystostomy tube within the gallbladder. Persistent mild wall thickening and pericholecystic fat stranding, unchanged. Bile ducts: No biliary ductal dilation. Spleen: Normal. A 8 mm hypodense lesion in the superior pole, unchanged. Pancreas: Diffuse peripancreatic edema improving since 07/16/2023. Residual stranding and fluid, particularly adjacent to the pancreatic body, without organized peripancreatic fluid collection at thistime. No ductal dilatation or parenchymal necrosis. Adrenal glands: Normal. Kidneys and ureters: No hydronephrosis, stones, or suspicious masses. A 7 mm cystic lesion with peripheral calcification in the left upper pole, unchanged since prior. Multiple cystic lesion in both the kidneys not requiring further follow-up. Bladder: Decompressed urinary bladder. Reproductive organs: Heterogeneous appearance of the uterus with 1.1 cm endometrial thickening versus fluid within the endometrial cavity. Stomach, small bowel, and large bowel: Small type I hiatal hernia. Moderate diverticulosis of the sigmoid colon without acute diverticulitis. Liquid stool throughout the colon. Appendix: Normal. Peritoneum and retroperitoneum: No ascites or pneumoperitoneum. No omental or mesenteric lesions. Lymph nodes: No enlarged lymph nodes. Abdominal and pelvic wall: A small fat-containing umbilical hernia. Bones: Moderate multilevel degenerative changes in the thoracolumbar spine. IMPRESSION: 1. Findings concerning for acute GI bleed in the second portion of duodenum. 2. Persistent but resolving acute pancreatitis with adjacent stranding and fluid but no organized acute radiographic fluid collection or parenchymal necrosis. 3. Percutaneous cholecystostomy tube within the gallbladder with persistent mild surrounding stranding. 4. Heterogeneous appearance of the uterus with endometrial fluid versus 1.1 cm thickening of the endometrium. Recommend nonemergent ultrasound pelvis if this has not been evaluated before. Preliminary results were conveyed via telephone by Dr. Jimenez to Dr. Rafa Gee MD on 07/23/2023 at 3:35 AM with understanding acknowledged. I have personally reviewed the images and I agree with this report. WSN: [id number] Ordering Physician: Rafa Gee Dictated By: Cherelle Jimenez MD Dictated Date/Time: 07/23/23 7:47 am Reviewed By: Darwin Barber MD Signed By: Darwin Barber MD Signed Date/Time: 07/23/23 7:52 am Transcribed By: BRANDIN Transcribed Date/Time: 07/23/23 7:01 am Vital Signs Most recent to oldest [Reference Range]: 1 2 3 Height 158.2 cm (07/23/23 7:23 AM) Weight 63.6 kg (07/23/23 7:23 AM) Oxygen Saturation [94-100 %] 95 % (07/25/23 3:00 PM) 93 % *L* (07/25/23 2:00 PM) 92 % *L* (07/25/23 1:00 PM) Pulse Rate [55-90 bpm] 130 bpm *H* (07/25/23 11:52 AM) 97 bpm *H* (07/24/23 8:24 AM) 111 bpm *H* (07/23/23 9:06 PM) Body Mass Index [18.5-24.99 kg/m2] 25.41 kg/m2 *H* (07/23/23 7:23 AM) Blood Pressure [90-138/55-84 mm Hg] 102/57mm Hg (07/25/23 3:00 PM) 111/59mm Hg (07/25/23 2:00 PM) 102/58mm Hg (07/25/23 1:00 PM) Respiratory Rate [16-30 br/min] 16 br/min (07/25/23 3:00 PM) 16 br/min (07/25/23 2:00 PM) 16 br/min (07/25/23 1:00 PM) Temperature [96.8-100.4 DegF] 98.3 DegF (07/25/23 12:00 PM) 98.2 DegF (07/25/23 8:00 AM) 98.0 DegF (07/25/23 4:00 AM) Mode of Delivery (Oxygen) Room air (07/25/23 3:00 PM) Room air (07/25/23 2:00 PM) Room air (07/25/23 1:00 PM) Blood pressure sites Arm, left (07/24/23 4:00 AM) Arm, left (07/24/23 3:00 AM) Arm, left (07/24/23 2:55 AM) Temperature Route Oral (07/25/23 12:00 PM) Axillary (07/25/23 8:00 AM) Oral (07/25/23 4:00 AM) Weight Obtained Via Bed scale (07/23/23 7:23 AM) Social History Social History Type Response Smoking Status Never (less than 100 in lifetime);Former smoker, quit more than 30 days ago entered on: 06/17/23 Sex Endoscopy study * Event Display: GG EGD Please click on pdf link to open report Admission evaluation note * Zaire Arreola MD: PERFORM, MODIFY, MODIFY, MODIFY Event Display: Admission Note Authored Date: [id number] Patient: ??JHONNY SHARP ? Age:??83 Years?Sex:??Female?:??1940?? Chief Complaint/Reason for Consultation Vomiting, urinating, deficating blood History of Present Illness 83-year-old female past medical history severe aortic stenosis, CAD with significant distal left main disease, hypertension, dyslipidemia and multiple recent hospital admission admissions.?? Initially presented end of May with acute cholecystitis managed with cholecystectomy tube given intraoperative risk. Readmitted with Cdiff and possible acute diverticulitis, and again 07/10 w/ choledocholythiasis and possible pancreatitis s/p ERCP, course complicated by ongoing Cdiff and occlusive 5 cm thrombus of paired posterior tibial veins and ruptured diaz cyst.??She was discharged at this time on Eliquis and continued on oral vancomycin therapy for C. difficile infection.? She presents with 2-day history of feeling unwell with subsequent to acute development of coffee-ground emesis and a scant amount of BRB w/ loose stools, with associated nausea and vomiting and ongoing loose stools.?? In ED she was hemodynamically unstable with soft blood pressures and sinus tachycardia.?? Initial hemoglobin was 8.2 which dropped to 6.7 and she has been subsequently given 2 unitsof packed RBC.?? Had a large maroon-colored BM in the ED.?? CTA concerning for active extubation ofblood into the duodenum.?? EKG showed new nonspecific ST changes.?? Case was discussed with GI who believe patient needs urgent endoscopy given concern for active bleeding on CTA. Given urgency, lackof availability of endoscopy suite, and concern for risk of decompensation GI has asked patient be admitted to MICU where they will perform endoscopy.? On review of investigations, baseline hemoglobin appears to be 11-13 last admission, initially 8.2 in ED down to 6.7. Platlet count NRR 438. WBC count 14.5 to 10.5. BMP NRR, Cr 0.7 essentially baseline. Microscopy hematuria +3. Trop 28 to 33. EKG w/ non-specific ST changes??in anterolateral leads and inferior leads with interval improvement w/o q??wave development.??CTA w/ contrast extravasation into duodenum, official read pending. On my assessment in ICU, patient bp stable, with persistentsinus tachycardia 110 slightly improved from prior. She had 1 dark blooded bm w/ clots just prior to coming up. She is alert orientated, w/o any pain, sob, cp, or palps. No rigors/chills. ?? Review of Systems A full review of systems was completed and is otherwise negative except as mentioned in history of present illness. Objective Vital Signs?? Temperature: 98.2 DegF (07/23/23 07:23:00) Temperature Route: Oral (07/23/23 07:23:00) Pulse Rate:??119 bpm??High (07/23/23 07:23:00) Heart Rate Monitored:??109 bpm??High (07/23/23 07:35:00) Respiratory Rate:??14 br/min??Low (07/23/23 07:35:00) Systolic Blood Pressure: 112 mm Hg (07/23/23 07:35:00) Diastolic Blood Pressure: 60 mm Hg (07/23/23 07:35:00) Blood pressure sites: Arm, right (07/23/23 07:23:00) Mean Arterial Pressure: 96 mm Hg (07/23/23 07:23:00) Pulse Pressure: 52 mm Hg (07/23/23 07:35:00) Oxygen Saturation: 100 % (07/23/23 07:23:00) Mode of Delivery (Oxygen): Room air (07/23/23 07:23:00) Early Warning Score: 1 (07/23/23 06:27:49) ? Intake/Output? 07/23 05:56 07/23 07:00 07/22 07:00 02 07:00 02 07:00 ?? 07/23 08:01 07/23 08:01 07/23 06:59 02 06:59 02 06:59 Intake ? 2281 ?0 ? 2281 ?0 ?0 Output ?0 ?0 ?0 ?0 ?0 Net Total ? 2281 ?0 ? 2281 ?0 ?0 ? Physical Exam ?? General Appearance: The patient appears stable Cardiovascular: S1 and S2 heard with high pitched blowing systolic murmor w/ soft s2. Respiratory: ??Breath sounds clear to auscultation bilaterally. No added sounds, equal air entry GI: Soft. Nontender and nondistended. Normal bowel sounds present throughout abdomen.?? MS:?Trace non-pitting edema. Neuro: ??No slurred speech. ??Patient seen moving their upper and lower extremities independently. Psych: Alert and oriented x3. Appropriate and pleasant. Lines: Peripheral IV in place,??gb drain w/ trace billiary drainage. ?? Assessment/Plan ?? 83-year-old female past medical history severe aortic stenosis, CAD with significant distal left main disease, hypertension, dyslipidemia and multiple recent hospital admission admissions.?? Initially presented end of May with acute cholecystitis managed with cholecystectomy tube given intraoperative risk. Readmitted 06/28- with Cdiff and possible acute diverticulitis, and again 07/10 w/ choledocholythiasis and possible pancreatitis s/p ERCP, course complicated by ongoing Cdiff and occlusive 5 cm thrombus of paired posterior tibial veins and ruptured diaz cyst.??She was discharged at this time on Eliquis and continued on oral vancomycin therapy for C. difficile infection.?Now presenting w/ active UGIB w/ contrast extravasation in duodenum, admitted to ICU for planned upper endoscopy and intubation within the ICU. ?? Neuro Hx Anxiety Delirium precautions Can resume home nortriptyline once no longer npo ?? Cards Severe CAD w/ significant distal LM disease Sinus tachycardia Hypotension, improved Myocardial injury 2/2 demand Very low suspicion for type 1 ischemia, in keeping with small demand injury from CAD w/ acute drop in H+H ?? Plan: -Transfuse for target hgb > 7, or if unstable -H+H q6 -hold home ASA, coreg ?? GI UGIB Hx choledocholithiasis s/p ERCP Hx acute cholecystitis w/ cholecystectomy tube ?? Plan: -GI planning EGD at 1230 -Intubation for airway protection -NPO ?? Heme Hx??recent 5??cm thrombus of paired posterior tibial veins Unclear risk of acute spread, barely in above knee venous system by sound of inital doppler report Will hold eliquis given active bleed, get doppler to risk stratify thrombsis, and cont to discuss w/ GI plans for resuming anticoagulation following scope and whether IVC filter will be needed ?? Plan: -Hold eliquis -Doppler b/l lower extremity ?? ID Cdiff infection Cont po vanc 125 qid once no longer NPO Contact precautiosn ?? Endo: No active issues q6 POC w/ hypoglycemic precautions while NPO ?? Quality DNR, DNI. Okay per patient to intubate for procedure VTE: pneumoboots, holding home eliquis Diet: NPO Marc Burrows updated on phone ?? Zaire Arreola MD Internal Medicine PGY2; Pager: #[phone] ?? Precepted with attending physician,??Dr. Anthony ?? Histories Allergies Allergies ?(Active and Proposed Allergies Only) penicillin? (Severity: Unknown severity, Onset: Unknown) ?Comments: doesn't remember reaction ? Past Medical History/Problem List Active Problems??(4) Anxiety HTN (hypertension) Hypothyroidism Left main coronary artery disease Severe ? Past Surgical History Endoscopic retrograde cholangiopancreatography (ERCP); with removal of calculi/debris from biliary/pancreatic duct(s): 07/12/23 ? Social History Tobacco Details:??Use: Never (less than 100 in lifetime), Former smoker, quit more than 30 days ago. ?? No alcohol No other substances ?? Family History No relavent fmhx ?? Medications Home Medications apixaban (Eliquis Starter Pack 5 mg oral tablet)?2?tab(s)?10?Milligram?By Mouth?2times a day?for 7?Days?followed by 1 tablet by mouth twice daily for 23 days; as directed on package labeling; will need to follow up with PCP for refills Aspirin (aspirin 81 mg oral delayed release tablet)?81?Milligram?1?tablet?By Mouth?Daily Carvedilol (Coreg 25 mg oral tablet)?12.5?Milligram?0.5?tablet?By Mouth?2 times aday?for 30?Days?Pt is on Nebivolol 10 mg po daily. Conversion is Coreg 25 bid. May adjust dose per evidence. Cholecalciferol (cholecalciferol 1000 intl units oral tablet)?1?tab(s)?25?Microgram?By Mouth?Daily Clonazepam (clonazePAM 0.5 mg oral tablet)?1?tab(s)?0.5?Milligram?By Mouth?2 times a day?for 2?Days Docusate (Docusate Sodium Capsule)?100?Milligram?1?capsule?By Mouth?2 times a day?as needed?Constipation Levothyroxine (levothyroxine 75 mcg (0.075 mg) oral tablet)?1?tab(s)?75?Microgram?ByMouth?Daily Multivitamin (Super B Complex Vitamin B Complex oral tablet)?1?tab(s)?By Mouth?Daily Nortriptyline (nortriptyline 50 mg oral capsule)?50?Milligram?1?capsule?By Mouth?Daily Simethicone (simethicone 80 mg oral tablet, chewable)?80?Milligram?1?tablet?Chew?3 times a day?as needed?for 14?Days?Gas Simvastatin (simvastatin 40 mg oral tablet)?40?Milligram?1?tablet?By Mouth?Daily at bedtime Vancomycin (vancomycin 125 mg oral capsule)?1?capsule?125?Milligram?By Mouth?Every 6 hours?for 7?Days Vancomycin (vancomycin 125 mg oral capsule)?1?capsule?125?Milligram?By Mouth?Every 6 hours?for 4?Days ? Inpatient Medications Medications (1) Active SCHEDULED: (1) Tranexamic Acid 100 mg/mL Inj (Tranexamic Acid Inj) ??1 Gm 10 mL, IVPB, Once CONTINUOUS: (0) PRN: (0) ? Results Recent Labs BLOOD BANK Blood Type O Positive ()?? 07/23/2023 01:45 Antibody Screen Negative ()?? 07/23/2023 01:45 RBC Unit ID [id number] ()?? 07/23/2023 03:39 RBC Available IS ()?? 07/23/2023 03:39 ?? BLOOD COUNT & DIFF WBC 10.5 k/mm3 ()?? 07/23/2023 03:57 RBC 2.40 m/mm3 (Low)?? 07/23/2023 03:57 Hgb 6.7 Gm/dL (Low)?? 07/23/2023 03:57 Hct 21.4 % (Low)?? 07/23/2023 03:57 MCV 89.2 femtoliters ()?? 07/23/2023 03:57 MCH 27.9 pg ()?? 07/23/2023 03:57 MCHC 31.3 g/dL (Low)?? 07/23/2023 03:57 Platelet Count 438 k/mm3 ()?? 07/23/2023 03:57 RDW-SD 43.0 femtoliters ()?? 07/23/2023 03:57 MPV 9.7 femtoliters ()?? 07/23/2023 03:57 Nucleated RBC (Automated) 0.0 #/100 WBC'S ()?? 07/23/2023 03:57 Abs. NRBC 0.0 k/mm3 ()?? 07/23/2023 03:57 Abs. Neut 9.8 k/mm3 (High)?? 07/23/2023 01:59 Abs. Lymph 3.4 k/mm3 (High)?? 07/23/2023 01:59 Abs. [place] 0.9 k/mm3 ()?? 07/23/2023 01:59 Abs. Eo 0.1 k/mm3 ()?? 07/23/2023 01:59 Abs. Baso 0.1 k/mm3 ()?? 07/23/2023 01:59 Neut % 67.1 % ()?? 07/23/2023 01:59 Lymph % 23.4 % ()?? 07/23/2023 01:59 [place] % 6.3 % ()?? 07/23/2023 01:59 Eos % 0.9 % ()?? 07/23/2023 01:59 Baso % 0.6 % ()?? 07/23/2023 01:59 Hemoglobin (POC) POC Cartridge 7.5 Gm/dL (Low)?? 07/23/2023 03:08 Hematocrit (POC) POC Cartridge 22 % (Low)?? 07/23/2023 03:08 Imm Gran 1.7 % ()?? 07/23/2023 01:59 Abs. Imm Gran 0.3 k/mm3 ()?? 07/23/2023 01:59 ?? BLOOD GAS pH Venous (POC) POC Cartridge 7.48 (High)?? 07/23/2023 03:08 pCO2 Venous (POC) POC Cartridge 34.9 mm Hg (Low)?? 07/23/2023 03:08 pO2 Venous (POC) POC Cartridge 21 mm Hg (Low)?? 07/23/2023 03:08 Est Bicarbonate (POC) POC Cartridge 25.8 mmol/L ()?? 07/23/2023 03:08 % O2 Sat Venous (POC) POC Cartridge 40 ()?? 07/23/2023 03:08 Base Excess (POC) POC Cartridge 2 ()?? 07/23/2023 03:08 Specimen Type - Blood Gas VENOUS ()?? 07/23/2023 03:08 ?? CARDIAC High Sensitivity Troponin (HSTnT) 33 ng/L (High)?? 07/23/2023 03:57 ?? CHEM GENERAL Sodium 142 mmol/L ()?? 07/23/2023 01:59 Potassium 4.1 mmol/L ()?? 07/23/2023 01:59 Chloride 104 mmol/L ()?? 07/23/2023 01:59 Bicarbonate Level 26 mmol/L ()?? 07/23/2023 01:59 Anion Gap 12 ()?? 07/23/2023 01:59 Sodium (POC) POC Cartridge 142 mmol/L ()?? 07/23/2023 03:08 Potassium (POC) POC Cartridge 3.7 mmol/L ()?? 07/23/2023 03:08 Glucose Level 149 mg/dL (High)?? 07/23/2023 01:59 Glucose (POC) POC Cartridge 136 (High)?? 07/23/2023 03:08 BUN 24 mg/dL (High)?? 07/23/2023 01:59 Creatinine-Blood 0.7 mg/dL ()?? 07/23/2023 01:59 Estimated GFR Creatinine 88 ML/MIN/1.73 M2 ()?? 07/23/2023 01:59 Calcium 8.9 mg/dL ()?? 07/23/2023 01:59 Ionized Calcium (POC) POC Cartridge 1.15 mmol/L ()?? 07/23/2023 03:08 Protein, Total 5.7 Gm/dL (Low)?? 07/23/2023 01:59 Albumin 3.5 Gm/dL ()?? 07/23/2023 01:59 AG Ratio 1.6 ()?? 07/23/2023 01:59 Alkaline Phosphatase 80 units/L ()?? 07/23/2023 01:59 AST (SGOT) 20 units/L ()?? 07/23/2023 01:59 ALT (SGPT) 22 units/L ()?? 07/23/2023 01:59 Bilirubin, Total 0.2 mg/dL ()?? 07/23/2023 01:59 Lactate 1.7 mmol/L ()?? 07/23/2023 03:57 ?? COAG INR 1.2 (High)?? 07/23/2023 03:57 Protime (PT) 13.1 seconds (High)?? 07/23/2023 03:57 ?? ENDOCRINE/TUMOR MARKER TSH 4.98 uIU/mL (High)?? 07/23/2023 01:59 Free T4 1.59 ng/dL ()?? 07/23/2023 01:59 ?? MISC. CHEMISTRY Hold Gel Top SPECIMEN DISCARDED AFTER 1 WEEK ()?? 07/23/2023 03:57 ?? UA/URINALYSIS Appear/Color, Urine YELLOW ()?? 07/23/2023 02:29 Specific [place], Urine 1.027 ()?? 07/23/2023 02:29 pH, Urine 5.5 ()?? 07/23/2023 02:29 Albumin, Urine 1+ (Abnormal)?? 07/23/2023 02:29 Glucose, Urine NEGATIVE ()?? 07/23/2023 02:29 Ketones, Urine NEGATIVE ()?? 07/23/2023 02:29 Bilirubin, Urine NEGATIVE ()?? 07/23/2023 02:29 Hemoglobin, Urine 3+ (Abnormal)?? 07/23/2023 02:29 Nitrite, Urine NEGATIVE ()?? 07/23/2023 02:29 Leukocyte, Urine NEGATIVE ()?? 07/23/2023 02:29 Urobilinogen NORMAL mg/dL ()?? 07/23/2023 02:29 WBC's, Urine 1 /HPF ()?? 07/23/2023 02:29 RBC's, Urine >182 /HPF (High)?? 07/23/2023 02:29 Squamous Epith 1 /HPF ()?? 07/23/2023 02:29 Calcium Oxal SLIGHT /HPF ()?? 07/23/2023 02:29 Mucus SLIGHT /LPF ()?? 07/23/2023 02:29 Hold Urine Culture Testing available 48 hours from time of collection. ()?? 07/23/2023 02:29 ?? VIROLOGY Influenza A PCR NEGATIVE ()?? 07/23/2023 02:00 Influenza B PCR NEGATIVE ()?? 07/23/2023 02:00 RSV PCR NEGATIVE ()?? 07/23/2023 02:00 COVID-19 PCR Specimen Source NASAL ()?? 07/23/2023 02:00 COVID-19 PCR Result NEGATIVE ()?? 07/23/2023 02:00 ? * Gabrielle STOVER, Arcadio Fields: PERFORM Event Display: Admission Note Authored Date: [id number] Date of service 07/23/2023 MICU Attending Attestation ?? I have seen and evaluated??JHONNY SHARP. I have personally reviewed the HPI, PMFSH, and ROS. I have personally reviewed the lab, radiography, and study results from this admission. I have discussed the case with Dr. Marcelo??and agree with the findings, assessment, and plan as documented below with the following highlights, clarifications, and addenda. ?? Assessment: JHONNY SHARP??is a??83 Years??Female??with??severe??, unrevascularized CAD with distal left main disease, recent cholecystitis in 05/2023 managed with cholecystostomy tube then choledocolithiasis/pancreatitis??s/p ERCP with hospital course complicated by C. diff infection,??recent tibial vein clot on apixaban??presenting??with melena and one episode of hematemesis. Found in ED to be in hemorrhagic shock, but responded to pRBC administration. CTA showed evidence of active extravasation in duodenum. Given 4 factor PCC in ED for apixaban reversal. Admitted to MICU for ongoing care. ?? 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 diff colitis #??NSTEMI, type 2 demand ?? Plan: - goal MAP 65, transfuse blood products if needed; pressors only as temporizing measure if needed - q6h CBC - BID IV PPI - GI consultation appreciated, they plan for EGD today - hold anticoagulation and antiplatelets - hold home carvedilol - obtain b/l DVT US to monitor tibial vein thrombosis; strongly consider not restarting anticoagulation in favor of monitoring with ultrasound vs. IVC filter if has progressed to higher risk DVT - NPO - no chemical VTE ppx - DNR, likely will plan for temporary intubation for EGD ?? Remainder as below ?? JHONNY SHARP??is critically ill due to the problems and diagnoses listed above, with a high probability of life-threatening deterioration or . I personally spent??45 minutes of non-overlapping critical care time evaluating and managing the patient, excluding time spent teaching??or performing separately billable procedures. ?? Arcadio Anthony MD Critical Care Medicine Attending [facility] Heart * Event Display: Echocardiogram - Complete Authored Date: [id number] Transthoracic Echocardiography Report (TTE) Patient Demographics Patient Name JHONNY SHARP Date of Study 07/24/2023 Corporate Gender Female Facility Race Ethnicity Date of 1940 Height: 62.2 inches Age 83 year(s) Weight: 141.1 pounds Accession Number [id number] BSA: 1.65 m2 Room Number D422 BMI: 25.64 kg/m2 Referring Physician Pritesh Pandey MD Interpreting Physician Jose Doshi MD Steamfitter Supervisor Milvia JULIO Fellow Viridiana Mello DO Indications NSTEMI. Clinical History Hypertension. Severe Coronary artery disease. Study Data Type of Study TTE procedure:Echo Complete-Doppler, Colorflow, M-Mode. Study Date07/24/2023 Start Time: 09:48 AM [place] [facility] [place] Status: ICU/CCU Patient Status: Routine Technical Quality: Fair due to restricted mobility. Blood Pressure:98/44 mmHg EKG: Normal sinus rhythm HR: 83 bpm Allergies - Eggs. - Penicillins. 2D Measurements LV Diastolic Dimension: 3.9 cm LV Systolic Dimension: 2.8 cm LV Septum Diastolic: 1.16 cm LV PW Diastolic: 1.25 cm AO Root Dimension: 2.87 cm LA ESV (BP):65.07 ml LVOT Stroke Volume: 66.41 ml LA ESV Index: 39 ml/m2 Stroke Volume Index40.25 ml/m2 LVOT: 2.05 cm Cardiac Index:3.34 l/min/m2 Ascending Aorta:3 cm Doppler Measurements AV Peak Velocity: 420 cm/s MV Peak E-Wave: 151 cm/s AV Peak Gradient: 70.56 mmHg MV Peak A-Wave: 181 cm/s AV Mean Gradient: 45.46 mmHg MV E/A Ratio: 0.83 AV VTI:105.06 cm MV P1/2t: 55 msec LVOT Peak Velocity: 82.9 cm/s MV Mean Gradient: 7.59 mmHg LVOT VTI20.13 cm MV Area (continuity): 1.55 cm2 AV Area (Continuity):0.63 cm2 MV Deceleration Time: 175 msec MV Area (PHT): 4 cm2 TR Velocity:225 cm/s TR Gradient:20.25 mmHg E' Septal Velocity: 3.48 cm/s E' Lateral Velocity: 5.11 cm/s E/Med E':43.3908 E/Lat E':29.5499 Cardiac Anatomy Left Ventricle/Interventricular Septum The LV systolic function is normal . The left ventricular wall thickness is mildly increased. The LV systolic function is vigorous . The left ventricular ejection fraction is 65-75 %. No obvious wall motion abnormalities seen on limited views. Unable to assess diastolic function due to mitral stenosis . Left Atrium/Interatrial Septum The left atrium is mildly dilated. Aortic Valve The aortic valve is is poorly visualized. The aortic valve appears severely calcified. There is severe aortic stenosis. The mean gradient is 45 mmHg. The valve area is 0.63 cm2 by continuity equation. There is mild aortic insufficiency. Mitral Valve There is moderate to severe mitral annular calcification. There is at least mild mitral regurgitation. There is progressive (mild) calcific mitral valve stenosis. The mitral valve area by continuity equation is 1.55 cm2. The mitral valve mean gradient is 7.6 mmHg at 81 bpm. Aorta The aortic root is normal in size. The ascending aorta is not well visualized. Right Ventricle The right ventricular size and function appears grossly normal. Right Atrium The right atrium is normal in size. Pulmonic Valve The pulmonic valve is poorly visualized. Tricuspid Valve The tricuspid valve is grossly normal. There is mild tricuspid valve regurgitation. Pumonary Artery The pulmonary artery systolic pressure estimation is 24 mmHg plus CVP. Venous Structures The inferior vena cava is poorly visualized. Pericardium/Extracardiac There is no significant pericardial effusion. Summary The LV systolic function is normal . The left ventricular wall thickness is mildly increased. The LV systolic function is vigorous . The left ventricular ejection fraction is 65-75 %. No obvious wall motion abnormalities seen on limited views. Unable to assess diastolic function due to mitral stenosis . The left atrium is mildly dilated. The aortic valve is is poorly visualized. The aortic valve appears severely calcified. There is severe aortic stenosis. The mean gradient is 45 mmHg. The valve area is 0.63 cm2 by continuity equation. There is mild aortic insufficiency. There is moderate to severe mitral annular calcification. There is at least mild mitral regurgitation. There is progressive (mild) calcific mitral valve stenosis. The mitral valve area by continuity equation is 1.55 cm2. The mitral valve mean gradient is 7.6 mmHg at 81 bpm. The right ventricular size and function appears grossly normal. Comparison Comparison is made to the external study of September 27, 2022. Increased aortic valve gradient. Signature * Event Display: Echocardiogram - Complete Authored Date: [id number] [facility] Progress note * Francine Jacobo RN: PERFORM, SIGN, VERIFY Event Display: Progress Note [facility] Authored Date: [id number] Patient: JHONNY SHARP Age: 83 years Sex: Female : 1940 Associated Diagnoses: None Author: Francine Jacobo RN Findings Problem Related to Alteration in Gastrointestinal : Alteration in Gastrointestinal Func/new 07/25/2023 16:00 EST Alteration in GI status Related to Gastric Hemorrhage Goals & Outcomes, Gastrointestinal Pt will achieve normal/improved fluid balance, Pt will maintain adequate GI function appropriate for pt, Pt will resume/maintain adequate hemodynamic status, Ptwill experience a decrease in diarrhea, Gastric drainage will exhibit progressive clearing, Pt will resume/maintain mental status Interventions, Gastrointestinal Assess/monitor abdomen for distention, tenderness, Assess/monitor bowel pattern, bowel sounds, flatus, Assess/monitor number of bowel movements, Assess/monitor color, quantity, quality, consistency of stoo, Assess/monitor pt for nausea, vomiting, Assess/monitor effects of re- hydration, Assess/monitor intake & output, Assess if pt tolerating diet, DVT prophylaxis as ordered, Elevate HOB to facilitate lung expansion, prevent aspiration, Establish toileting schedule for patient, Taking PO: Encourage/monitor intake & swallowing ability Goals/Interventions, Gastrointestinal Yes Gastrointestinal, Problem Start 07/23/2023 7:00 Reviewed plan with, Gastrointestinal Patient Patient Progression, Gastrointestinal Pt progressing according to plan Comment: Gastrointestinal patient had a spot of debora red blood on her brief MD made aware . Alteration in Musculoskeletal : Alteration in Musculoskeletal Func/new 07/25/2023 16:00 EST Alteration in Musculoskeletal Related to Mobility Goals & Outcomes, Musculoskeletal Affected extremity will maintain color/motion/sensation, Pt able to perform ADL's to best of ability, Pt demonstrates precautions/exercise/ transfers per protocol, Pt will ambulate safely with assistive device, Pt will be free from complications of immobility, Pt will demonstrate ability to participate in ADL's, Pt will report acceptable level of comfort/painrelief Interventions, Musculoskeletal Monitor patients ambulation status, monitor Color/Motion/Sensation, Assist with repositioning, Obtain assistive devices as needed, Teach Pt/caregiver on ADL's & adaptive equipment, Teach Pt/caregiver on exercises, Teach pt/caregiver on use of pain scale, Teach Pt/caregiver complications of immobility, Teach Pt/caregiver techniques to increase mobility Goals/Interventions, Musculoskeletal Yes Musculoskeletal, Problem Start 07/23/2023 16:31 Reviewed Plan with, Musculoskeletal Patient Patient Progression, Musculoskeletal Pt progressing according to plan Comment: Musculoskeletal patient sat at side of bed for breakfast, sat in the chair, got to the BSC4 times today and stood strong with the walker. PAtient was tired this afternoon but had worked hard ambulating and getting OOB to chair and BSC . Narrative/Incidental Alteration in GI status/GI bleed/ Dayanara tube I: see iview and IPOC. monitor patient for bleeding and output of dayanara tube E: patient had a spot of debora red blood on her brief, MD Jimenez made aware. Dressing changed on dayanara tube, requested orders for care of dayanara tube, no care needed as per Dr. Carreno Alteration in musculoskeletal/ weakness I: see iview and IPOC E: see comments in IPOC, patient has gotten stronger throughout the day Patient transfered to [facility] and left with via stretcher with transport at 1630, 2 bags of personal belongings went with her. . Discharge Information Case Management Discharge Plan : Case Management Discharge Plan Data 07/25/2023 13:03 EST Discharge Level of Care at Discharge [facility] facility Discharge Nursing Homes/Rehab Facilities [facility] Discharge Transportation Arranged [facility] [address] [place] [address] Discharge Arranged Transport Date/Time 07/25/2023 15:30 Mode of Transportation Arranged Ambulance Service Categories #1 Occupational Therapy, Physical Therapy, Long Term Service Comments #1 [facility] & tcare - you will be returning to facility today for continued rehabilitation 07/24/2023 14:35 EST Discharge Nursing Homes/Rehab Facilities [facility] 07/20/2023 12:27 EST Discharge Level of Care at Discharge [facility] facility Discharge Nursing Homes/Rehab Facilities [facility] 07/19/2023 16:12 EST Discharge Level of Care at Discharge [facility] facility Discharge Nursing Homes/Rehab Facilities [facility] Name of Agency [facility] Categories #1 Physical Therapy, Long Term Service Comments #1 You are being discharged to [facility] for PT/SN Pulmonary Rehab Discharge : Pulmonary Rehab Discharge Status 07/23/2023 14:00 EST PEEP 5 07/23/2023 13:00 EST PEEP 5 07/23/2023 12:02 EST PEEP 5 07/23/2023 11:00 EST PEEP 5 07/23/2023 10:00 EST PEEP 5 07/23/2023 9:35 EST PEEP 5 Rehabilitation Discharge : Rehab Discharge Index 07/25/2023 11:25 EST Comments on treatment indicated see comment Walker: distance < 10 Distance pt will ambulate ~50' with RW and good balance Full chart review completed Yes Plan of care PT Gait training, Transfer training, Therapeutic exercise, Functional Activities, Balance training * Marcos Sousa: MODIFY, PERFORM Event Display: Progress Note Hospital Authored Date: Patient: ??JHONNY SHARP ? Age:??83 Years?Sex:??Female?:??1940?? History of Present Illness/Interval History No further chest pain and reassuring echocardiogram. Review of Systems Constitutional: no fever, chills, sweats?? ++fatigue Cardiac: as above Respiratory: no wheezing or coughing Neuro: no changes in memory, vision or hearing, no seizures GI: no Nausea/vomiting/diarrhea : no dysuria or hematuria Musculoskeletal: no joint pain or muscle pain that is new Hematologic: no hematuria, melena, epistaxis or easy bruising Integument: no rashes or skin changes?? Physical Exam Vitals & Measurements T:??98.2?F?? HR:??104??(Monitored)?? RR:??22?? BP:??125/67?? SpO2:??96%?? HT:??158.2??cm?? WT:??63.6??kg?? BMI:??25.41?? Weight lb/oz: 140 lb 3 oz General appearance: WDWN, no acute distress, resting comfortably?? HEENT: NCAT,??negative JVD, carotid pulses are +2 bilaterally without carotid bruit Respiratory: easy respiratory effort, lungs are clear Cardiac: S1S2, heart rate regular, +III/ systolic murmrur with no A2, no heaves/rubs/gallops Abdomen round, soft, non-tender, +bowel sounds x4 quadrants, no HSM appreciated?? Extremities:?? no edema, skin is warm Pulses: radial and pedal bilaterally +2 Neurologic: alert and oriented x3, grossly normal Mood and Affect: calm Integument no rashes , dry and intact, warm Assessment/Plan Mrs. Sharp is an 83-year-old female with past medical history with severe aortic stenosis, coronary artery disease with 60% left main bifurcation lesion and moderate disease in the RCA referred to cardiac surgery but declined further intervention, systemic hypertension, hyperlipidemia and multiple recent hospital admissions which included such as events as acute cholecystitis status post cholecystectomy tube, C. difficile infection with possible acute diverticulitis, pancreatitis status post ERCP, occlusive thrombus of the paired posterior tibial vein with ruptured Diaz's cyst who now presents to [facility] with an acute upper gastrointestinal bleed who was intubated for airway protection and underwent EGD with cauterization of nonbleeding duodenal ulcer.?? She had presumably angina in the setting of profound anemia following a gastrointestinal bleed.?? She has known significant left main bifurcation disease as well as severe aortic stenosis.?? This was likely demand in the setting of the acute anemia.?? Status post transfusion HGB now above 10.?No further chest pain.?? Would recommend??HGB target above 10 in the setting of her significant coronary and valvular disease.?? She appears compensated on exam.?? Echocardiogram very reassuring for no acute events.?? No significant arrhythmias on telemetry.?? Continue with aspirin, high-dose atorvastatin and metoprolol.?? No other changes to medications at this time. ?Thank you for allowing us to participate in this patient's care. ??We will continue to follow her as an inpatient and outpatient. ??Please feel free to call with any questions or concerns. ?? The patient was seen with Dr. Deonte hDillon. Problem List/Past Medical History Ongoing Anxiety HTN (hypertension) Hypothyroidism Left main coronary artery disease Procedure/Surgical History Endoscopic retrograde cholangiopancreatography (ERCP); with removal of calculi/debris from biliary/pancreatic duct(s): 07/12/23 Hospital Medications Medications (11) Active SCHEDULED: (9) Aspirin 81 mg EC Tablet (Aspirin Tablet) ??81 mg, By Mouth, Daily Atorvastatin 80 mg Tablet (atorvastatin 80 mg oral tablet) ??80 mg, By Mouth, Daily at bedtime Clonazepam 0.5 mg Tablet (clonazePAM 0.5 mg oral tablet) ??0.5 mg, By Mouth, Daily at bedtime Heparin 5000 units/mL Inj (1 mL) (Heparin Inj) ??5,000 units 1 mL, Subcutaneous Injection, 3 times a day Levothyroxine 75 mcg Tablet (levothyroxine 0.075 mg oral tablet) ??75 mcg, By Mouth, Daily Metoprolol 25mg Tablet (metoprolol 25 mg oral tablet) ??12.5 mg, By Mouth, 2 times a day Nortriptyline 25 mg Capsule (nortriptyline 25 mg oral capsule) ??50 mg, By Mouth, Daily Pantoprazole 40 mg EC Tablet (pantoprazole 40 mg oral delayed release tablet) ??40 mg, By Mouth, 2 times a day Vitamin D 1000 IU Tablet (cholecalciferol 1000 intl units oral tablet) ??1,000 International_Units,By Mouth, Daily CONTINUOUS: (0) PRN: (2) Clonazepam 0.5 mg Tablet (clonazePAM 0.5 mg oral tablet) ??0.5 mg, By Mouth, Daily Nitroglycerin 0.4 mg Sublingual Tablet (nitroglycerin 0.4 mg sublingual tablet) ??0.4 mg, Sublingual, Every 5 minutes Lab Results Cardiology Labs WBC: 10 k/mm3 (07/25/23) RBC:??3.51 m/mm3??Low (07/25/23) Hgb:??10.1 Gm/dL??Low (07/25/23) Hct:??30.4 %??Low (07/25/23) MCV: 86.6 femtoliters (07/25/23) MCH: 28.8 pg (07/25/23) MCHC: 33.2 g/dL (07/25/23) Platelet Count: 337 k/mm3 (07/25/23) RDW-SD:??48.5 femtoliters??High (07/25/23) Nucleated RBC (Automated): 0 #/100 WBC'S (07/25/23) Abs. Neut:??7.7 k/mm3??High (07/23/23) Abs. Lymph: 3 k/mm3 (07/23/23) Abs. [place]: 0.7 k/mm3 (07/23/23) Abs. Eo: 0.1 k/mm3 (07/23/23) Abs. Baso: 0.1 k/mm3 (07/23/23) Neut %: 66 % (07/23/23) [place] %: 5.9 % (07/23/23) Eos %: 0.4 % (07/23/23) Baso %: 0.7 % (07/23/23) Imm Gran: 1.7 % (07/23/23) Abs. Imm Gran: 0.2 k/mm3 (07/23/23) INR:??1.2??High (07/23/23) Protime (PT):??13.1 seconds??High (07/23/23) APTT: 30.2 seconds (06/18/23) Sodium: 143 mmol/L (07/25/23) Potassium: 3.7 mmol/L (07/25/23) Chloride:??109 mmol/L??High (07/25/23) Bicarbonate Level: 25 mmol/L (07/25/23) Glucose Level:??107 mg/dL??High (07/25/23) BUN:??6 mg/dL??Low (07/25/23) Creatinine-Blood: 0.6 mg/dL (07/25/23) Calcium:??8.2 mg/dL??Low (07/25/23) Protein, Total:??5.7 Gm/dL??Low (07/23/23) Albumin: 3.5 Gm/dL (07/23/23) Alkaline Phosphatase: 80 units/L (07/23/23) AST (SGOT): 20 units/L (07/23/23) ALT (SGPT): 22 units/L (07/23/23) Bilirubin, Total: 0.2 mg/dL (07/23/23) Nt-Probnp: 111 pg/mL (06/17/23) Triglycerides: 73 mg/dL (07/11/23) TSH:??4.98 uIU/mL??High (07/23/23) Free T4: 1.59 ng/dL (07/23/23) Diagnostic Impression CT CT TAVR Angio Chest ?? 08:53:33 IMPRESSION: ?? Aortic valve annular dimensions, areas and perimeters, and coronary ostial distances as above. ? WSN: [id number] ? Ordering Physician: Clifford Dye ?? Signed By: Zahida STOVER, Sara Cevallos CT Angio Abdomen and Pelvis ?? 03:46:43 ADD TEXT: Findings concerning for acute GI bleed in the second portion of duodenum. ?? Read By: Cherelle Jimenez MD ?? 03:46:55 ADD TEXT: Persistent but resolving acute pancreatitis since 07/16/2023. ?? Read By: Cherelle Jimenez MD ?? 03:47:05 ADD TEXT: Heterogeneous appearance of the uterus with endometrial fluid versus 1.1 cm thickening ofthe endometrium. Recommend, nonemergent ultrasound pelvis if this has not been evaluated before. ?? Read By: Cherelle Jimenez MD ?? 06:59:39 ADD TEXT: Percutaneous cholecystostomy tube within the gallbladder with persistent findings of acute cholecystitis. ?? Read By: Cherelle Jimenez MD ?? 03:19:12 IMPRESSION: ?? 1. Findings concerning for acute GI bleed in the second portion of duodenum. 2. Persistent but resolving acute pancreatitis with adjacent stranding and fluid but no organized acute radiographic fluid collection or parenchymal necrosis. 3. Percutaneous cholecystostomy tube within the gallbladder with persistent mild surrounding stranding. 4. Heterogeneous appearance of the uterus with endometrial fluid versus 1.1 cm thickening of the endometrium. Recommend nonemergent ultrasound pelvis if this has not been evaluated before. ?? Preliminary results were conveyed via telephone by Dr. Jimenez to Dr. Rafa Gee MD on 07/23/2023 at 3:35 AM with understanding acknowledged. ?? I have personally reviewed the images and I agree with this report. WSN: [id number] ? Ordering Physician: Rafa Gee ?? Signed By: Darwin Barber MD CT [facility] ?? 08:53:33 IMPRESSION: ?? Aortic valve annular dimensions, areas and perimeters, and coronary ostial distances as above. ? WSN: [id number] ? Ordering Physician: Clifford Dye ?? Signed By: Sara Teague MD ECG ECG 12-Lead * Preliminary * ?? 11:12:32 Ventricular Rate: 89 BPM Atrial Rate: 89 BPM P-R Interval: 136 ms QRS Duration: 84 ms Q-T Interval: 414 ms QTC Calculation(Bazett): 503 ms P [place]: 38 degrees R [place]: 26 degrees T [place]: 26 degrees Critical Test Result: Long QTc Normal sinus rhythm Nonspecific ST abnormality Prolonged QT Abnormal ECG When compared with ECG of 24-JUL-2023 01:11, MANUAL COMPARISON REQUIRED, DATA IS UNCONFIRMED ?? [place]: , ?? ECG 12-Lead * Preliminary * ?? 11:12:32 Please click on pdf link to open report Echo Echocardiogram - Complete ?? 09:48:34 Summary The LV systolic function is normal . The left ventricular wall thickness is mildly increased. The LV systolic function is vigorous . The left ventricular ejection fraction is 65-75 %. No obvious wall motion abnormalities seen on limited views. Unable to assess diastolic function due to mitral stenosis . ?? The left atrium is mildly dilated. ?? The aortic valve is is poorly visualized. The aortic valve appears severely calcified. There is severe aortic stenosis. The mean gradient is 45 mmHg. The valve area is 0.63 cm2 by continuity equation. There is mild aortic insufficiency. ?? There is moderate to severe mitral annular calcification. There is at least mild mitral regurgitation. There is progressive (mild) calcific mitral valve stenosis. The mitral valve area by continuity equation is 1.55 cm2. The mitral valve mean gradient is 7.6 mmHg at 81 bpm. ?? The right ventricular size and function appears grossly normal. ?? Comparison Comparison is made to the external study of September 27, 2022. Increased aortic valve gradient. ?? Signature ?? Signed By: Tico STOVER, Jose Dhillon MD, Deonte: PERFORM Event Display: Progress Note Hospital Authored Date: I have seen and examined the patient, reviewed patient's history, labs, images??and tests, discussed assessment and treatment plan with rounding ADDI. ??I agree with the recommendation as above.??I have made assessment and treatment plan in??its??entirety. Appears comfortable and sleepy. HR and Bp normal. Being transferred out of ICU. * Sharifa Schneider: VERIFY, PERFORM, SIGN Event Display: Progress Note Hospital Authored Date: Patient: JHONNY SHARP Age: 83 years Sex: Female : 1940 Associated Diagnoses: None Author: Sharifa Schneider Findings Problem Related to Alteration in Cardiac Function (new) : Alteration in Cardiac Function/new 07/25/2023 3:00 EST Alteration in Cardiac Status Related to Chest pain Goals & Outcomes, Cardiac Status Pt will resume/maintain adequate hemodynamic status, Pt will resume/maintain adequate respiratory function, Pt will maintain adequate GI/ function appropriate for pt, Pt will maintain adequate tissue oxygenation/ventilation Cardiac Interventions Implemented Assess/monitor cardiac status, Assess/monitor neuro status, Assess/monitor respiratory status, Call/Report variances in ECG to provider Goals/Interventions, Cardiac Yes Cardiac, Problem Start 07/23/2023 21:00 Reviewed Plan with, Cardiac Status Patient Patient Progression, Cardiac Status Patient progressing according to plan . Evaluation P: Alt in cardiac I: refer to cis E: pt reported no chest pain during shift, resting ao x 4 in bed, blood pressures sustaining map>65. . Consult note * Marcos Sousa: PERFORM, MODIFY Event Display: Consultation Note Authored Date: Patient: ??JHONNY SHARP ? Age:??83 Years?Sex:??Female?:??1940?? Patient Hx *text entered here will not copy forward Date:?? July 24, 2023 Primary Production Troubleshooter:?? Dr. Max Weiss Referring Provider:?? Katherin Jonas MD Indication for Consult NSTEMI History of Present Illness/Interval History Mrs. Sharp is an 83-year-old female with past medical history with severe aortic stenosis, coronary artery disease with 60% left main bifurcation lesion and moderate disease in the RCA referred to cardiac surgery but declined further intervention, systemic hypertension, hyperlipidemia and multiple recent hospital admissions which included such as events as acute cholecystitis status post cholecystectomy tube, C. difficile infection with possible acute diverticulitis, pancreatitis status post ERCP, occlusive thrombus of the paired posterior tibial vein with ruptured Diaz's cyst who now presents to [facility] with an acute upper gastrointestinal bleed who was intubated for airway protection and underwent EGD with cauterization of nonbleeding duodenal ulcer.?? We were contacted for an episode of chest pain with subsequent discovery of elevated troponin levels along with ischemic EKG changes.?? This occurred overnight and she received sublingual nitroglycerin with resolution of pain.?? Additionally she had nitroglycerin paste added.?? At the time of consultation the patient was having no further chest pain.?? Blood pressure was soft to borderline soft with stable heartrates.?? She did have a drop in hemoglobin which apparently resolved several hours later.?? No palpitations, lightheadedness or shortness of breath at rest.?? She does report extreme fatigue.?? No orthopnea or paroxysmal nocturnal dyspnea. Review of Systems Constitutional: no fever, chills, sweats?? ++fatigue Cardiac: as above Respiratory: no wheezing or coughing Neuro: no changes in memory, vision or hearing, no seizures GI: no Nausea/vomiting/diarrhea : no dysuria or hematuria Musculoskeletal: no joint pain or muscle pain that is new Hematologic: no hematuria, melena, epistaxis or easy bruising Integument: no rashes or skin changes?? Physical Exam Vitals & Measurements T:??98.1?F?? HR:??94??(Monitored)?? RR:??18?? BP:??90/49?? SpO2:??96%?? HT:??158.2??cm?? WT:??63.6??kg?? BMI:??25.41?? Weight lb/oz: 140 lb 3 oz General appearance: WDWN, no acute distress, resting comfortably?? HEENT: NCAT,??negative JVD, carotid pulses are +2 bilaterally without carotid bruit Respiratory: easy respiratory effort, lungs are clear Cardiac: S1S2, heart rate regular, +III/ systolic murmrur with no A2, no heaves/rubs/gallops Abdomen round, soft, non-tender, +bowel sounds x4 quadrants, no HSM appreciated?? Extremities:?? no edema, skin is warm Pulses: radial and pedal bilaterally +2 Neurologic: alert and oriented x3, grossly normal Mood and Affect: calm Integument no rashes , dry and intact, warm Assessment/Plan Mrs. Shrap is an 83-year-old female with past medical history with severe aortic stenosis, coronary artery disease with 60% left main bifurcation lesion and moderate disease in the RCA referred to cardiac surgery but declined further intervention, systemic hypertension, hyperlipidemia and multiple recent hospital admissions which included such as events as acute cholecystitis status post cholecystectomy tube, C. difficile infection with possible acute diverticulitis, pancreatitis status post ERCP, occlusive thrombus of the paired posterior tibial vein with ruptured Diaz's cyst who now presents to [facility] with an acute upper gastrointestinal bleed who was intubated for airway protection and underwent EGD with cauterization of nonbleeding duodenal ulcer.?? She had presumably angina in the setting of profound anemia following a gastrointestinal bleed.?? She has known significant left main bifurcation disease as well as severe aortic stenosis.?? This was likely demand in the setting of the acute anemia.?? She has been transfused already and her hemoglobin is 8.5 this m orning.?? Would recommend an additional transfusion with a target above 10 in the setting of her significant coronary and valvular disease.?? She appears compensated on exam.?? Echo is reasonable, but no absolutely necessary.?? No significant arrhythmias on telemetry.?? Continue with aspirin, high-dose atorvastatin and metoprolol.?? No other changes to medications at this time. ?Thank you for allowing us to participate in this patient's care. ??We will continue to follow her as an inpatient and outpatient. ??Please feel free to call with any questions or concerns. ?? The patient was seen with Dr. Deonte Dhillon. Allergies penicillin Home Medications Cholecalciferol: 25 mcg = 1 tablet, By Mouth, Daily Clonazepam: 0.5 mg = 1 tablet, By Mouth, 2 times a day Levothyroxine: 75 mcg = 1 tablet, By Mouth, Daily Multivitamin: 1 tablet, By Mouth, Daily Nortriptyline: 50 mg = 1 capsule, By Mouth, Daily Simethicone: 80 mg = 1 tablet, Chew, 3 times a day, PRN (Gas) Simvastatin: 40 mg = 1 tablet, By Mouth, Daily at bedtime Hospital Medications Medications (11) Active SCHEDULED: (9) Aspirin 81 mg EC Tablet (Aspirin Tablet) ??81 mg, By Mouth, Daily Atorvastatin 80 mg Tablet (atorvastatin 80 mg oral tablet) ??80 mg, By Mouth, Daily at bedtime Clonazepam 0.5 mg Tablet (clonazePAM 0.5 mg oral tablet) ??0.5 mg, By Mouth, Daily at bedtime Heparin 5000 units/mL Inj (1 mL) (Heparin Inj) ??5,000 units 1 mL, Subcutaneous Injection, 3 times a day Levothyroxine 75 mcg Tablet (levothyroxine 0.075 mg oral tablet) ??75 mcg, By Mouth, Daily Metoprolol 25mg Tablet (metoprolol 25 mg oral tablet) ??12.5 mg, By Mouth, 2 times a day Nortriptyline 25 mg Capsule (nortriptyline 25 mg oral capsule) ??50 mg, By Mouth, Daily Pantoprazole 40 mg EC Tablet (pantoprazole 40 mg oral delayed release tablet) ??40 mg, By Mouth, 2 times a day Vitamin D 1000 IU Tablet (cholecalciferol 1000 intl units oral tablet) ??1,000 International_Units,By Mouth, Daily CONTINUOUS: (0) PRN: (2) Clonazepam 0.5 mg Tablet (clonazePAM 0.5 mg oral tablet) ??0.5 mg, By Mouth, Daily Nitroglycerin 0.4 mg Sublingual Tablet (nitroglycerin 0.4 mg sublingual tablet) ??0.4 mg, Sublingual, Every 5 minutes Lab Results Cardiology Labs WBC:??12 k/mm3??High (07/24/23) RBC:??2.9 m/mm3??Low (07/24/23) Hgb:??8.5 Gm/dL??Low (07/24/23) Hct:??25.9 %??Low (07/24/23) MCV: 89.3 femtoliters (07/24/23) MCH: 29.3 pg (07/24/23) MCHC:??32.8 g/dL??Low (07/24/23) Platelet Count: 333 k/mm3 (07/24/23) RDW-SD: 46.2 femtoliters (07/24/23) Nucleated RBC (Automated): 0 #/100 WBC'S (07/24/23) Abs. Neut:??7.7 k/mm3??High (07/23/23) Abs. Lymph: 3 k/mm3 (07/23/23) Abs. [place]: 0.7 k/mm3 (07/23/23) Abs. Eo: 0.1 k/mm3 (07/23/23) Abs. Baso: 0.1 k/mm3 (07/23/23) Neut %: 66 % (07/23/23) [place] %: 5.9 % (07/23/23) Eos %: 0.4 % (07/23/23) Baso %: 0.7 % (07/23/23) Imm Gran: 1.7 % (07/23/23) Abs. Imm Gran: 0.2 k/mm3 (07/23/23) INR:??1.2??High (07/23/23) Protime (PT):??13.1 seconds??High (07/23/23) APTT: 30.2 seconds (06/18/23) Sodium: 143 mmol/L (07/24/23) Potassium: 3.8 mmol/L (07/24/23) Chloride:??111 mmol/L??High (07/24/23) Bicarbonate Level: 25 mmol/L (07/24/23) Glucose Level:??114 mg/dL??High (07/24/23) BUN: 9 mg/dL (07/24/23) Creatinine-Blood: 0.5 mg/dL (07/24/23) Calcium:??8 mg/dL??Low (07/24/23) Protein, Total:??5.7 Gm/dL??Low (07/23/23) Albumin: 3.5 Gm/dL (07/23/23) Alkaline Phosphatase: 80 units/L (07/23/23) AST (SGOT): 20 units/L (07/23/23) ALT (SGPT): 22 units/L (07/23/23) Bilirubin, Total: 0.2 mg/dL (07/23/23) Nt-Probnp: 111 pg/mL (06/17/23) Triglycerides: 73 mg/dL (07/11/23) TSH:??4.98 uIU/mL??High (07/23/23) Free T4: 1.59 ng/dL (07/23/23) Diagnostic Impression CT CT [facility] Angio Chest ?? 08:53:33 IMPRESSION: ?? Aortic valve annular dimensions, areas and perimeters, and coronary ostial distances as above. ? WSN: [id number] ? Ordering Physician: Clifford Dye ?? Signed By: Sara Teague MD CT Angio Abdomen and Pelvis ?? 03:46:43 ADD TEXT: Findings concerning for acute GI bleed in the second portion of duodenum. ?? Read By: Cherelle Jimenez MD ?? 03:46:55 ADD TEXT: Persistent but resolving acute pancreatitis since 07/16/2023. ?? Read By: Cherelle Jimenez MD ?? 03:47:05 ADD TEXT: Heterogeneous appearance of the uterus with endometrial fluid versus 1.1 cm thickening ofthe endometrium. Recommend, nonemergent ultrasound pelvis if this has not been evaluated before. ?? Read By: Cherelle Jimenez MD ?? 06:59:39 ADD TEXT: Percutaneous cholecystostomy tube within the gallbladder with persistent findings of acute cholecystitis. ?? Read By: Tony STOVER, Cherelle ?? 03:19:12 IMPRESSION: ?? 1. Findings concerning for acute GI bleed in the second portion of duodenum. 2. Persistent but resolving acute pancreatitis with adjacent stranding and fluid but no organized acute radiographic fluid collection or parenchymal necrosis. 3. Percutaneous cholecystostomy tube within the gallbladder with persistent mild surrounding stranding. 4. Heterogeneous appearance of the uterus with endometrial fluid versus 1.1 cm thickening of the endometrium. Recommend nonemergent ultrasound pelvis if this has not been evaluated before. ?? Preliminary results were conveyed via telephone by Dr. Jimenez to Dr. Rafa Gee MD on 07/23/2023 at 3:35 AM with understanding acknowledged. ?? I have personally reviewed the images and I agree with this report. WSN: [id number] ? Ordering Physician: Rafa Gee ?? Signed By: Darwin Barber MD CT [facility] ?? 08:53:33 IMPRESSION: ?? Aortic valve annular dimensions, areas and perimeters, and coronary ostial distances as above. ? WSN: [id number] ? Ordering Physician: Clifford Dye ?? Signed By: Sara Teague MD ECG ECG 12-Lead * Preliminary * ?? 11:12:32 Ventricular Rate: 89 BPM Atrial Rate: 89 BPM P-R Interval: 136 ms QRS Duration: 84 ms Q-T Interval: 414 ms QTC Calculation(Bazett): 503 ms P [place]: 38 degrees R [place]: 26 degrees T [place]: 26 degrees Critical Test Result: Long QTc Normal sinus rhythm Nonspecific ST abnormality Prolonged QT Abnormal ECG When compared with ECG of 24-JUL-2023 01:11, MANUAL COMPARISON REQUIRED, DATA IS UNCONFIRMED ?? [place]: , ?? ECG 12-Lead * Preliminary * ?? 11:12:32 Please click on pdf link to open report Problem List/Past Medical History Ongoing Anxiety HTN (hypertension) Hypothyroidism Left main coronary artery disease Procedure/Surgical History Endoscopic retrograde cholangiopancreatography (ERCP); with removal of calculi/debris from biliary/pancreatic duct(s): 07/12/23 Social History Tobacco Use: Never (less than 100 in lifetime), Former smoker, quit more than 30 days ago. Family History No family history recorded. * Deonte Dhillon MD: PERFORM Event Display: Consultation Note Authored Date: I have seen and examined the patient, reviewed patient's history, labs, images??and tests, discussed assessment and treatment plan with rounding ADDI. ??I agree with the recommendation as above.??I have made assessment and treatment plan in??its??entirety. ?? A 83 years old female with known history of left main CAD, severe aortic stenosis, declined surgical intervention who presented to the ER with profound upper GI bleed and required emergent cauterization and intubation.?? She had a recent surgery and was started on anticoagulation due to calf DVT.??She had chest discomfort overnight with ischemic EKG change and mild troponin elevation.?? Echocardiogram otherwise showed no wall motion abnormality.?? This is likely type II OR due to demand ischemia.?? Will suggest to transfuse hemoglobin level to 9-10 range.?? There is no need for heparin drip,especially with her massive GI bleed yesterday, status post cauterization.?? Need to continue monitor for bleed, symptoms and sign of ischemia.?? When her blood pressure improves further, could increase metoprolol dosage.?? Will continue statin and aspirin. * Salty STOVER, Torsten H: PERFORM, MODIFY Event Display: Consultation Note Authored Date: Patient: ??JHONNY SHARP ? Age:??83 Years?Sex:??Female?:??1940?? Referrring Provider Miranda Troczynski NURSING TECHN Chief Complaint Vomiting, urinating, deficating blood Reason for Consultation GI bleed History of Present Illness ?? 83-year-old female with a reported past medical history of aortic stenosis, CAD, hypertension, hyperlipidemia, hypothyroidism, anxiety, recent hospitalization presented to the hospital with GI bleeding. ?? Patient was recently hospitalized with acute cholecystitis and due to her increased risk during surgery she underwent cholecystostomy tube placement on 06/19.?? During hospital course she was noted to have pancreatitis and dilated CBD concerning for choledocholithiasis for which she underwent ERCP on07/12 with successful stone extraction.?? Hospital course complicated by C. difficile diarrhea for which she was treated with vancomycin.?? She was also found to have a lower extremity DVT for which she was started on apixaban and discharged.?? She now presented to the hospital with coffee-ground emesis and bright red blood per rectum followed by melena.?? Patient was hemodynamically unstable in the ED with hypotension.?? Her hemoglobin on arrival was 8.2 which dropped to 6.7 in the few hours.??Patient was fluid responsive and her blood pressures improved.?? However patient was also noted to have chest pains with nonspecific EKG changes.?? Her apixaban was held and she was admitted to the ICU for further workup.?? CT angiogram showed extravasation in the mid duodenum. ?? On my evaluation patient denies any abdominal pain.?? She is currently normotensive without any further episodes of emesis.?? She received Kcentra in the ED, IV PPI and has been n.p.o. and is also receiving IV fluids.?? Patient is agreeable with endoscopic workup. ? RESULT: CT Angio Abdomen and Pelvis CT Angio Abdomen and Pelvis? IMPRESSION:? 1. ??Findings concerning for acute GI bleed in the second portion of duodenum. 2. ??Persistent but resolving acute pancreatitis with adjacent stranding and fluid but no organizedacute radiographic fluid collection or parenchymal necrosis. 3. ??Percutaneous cholecystostomy tube within the gallbladder with persistent mild surrounding stranding. 4. ??Heterogeneous appearance of the uterus with endometrial fluid versus 1.1 cm thickening of the endometrium. Recommend nonemergent ultrasound pelvis if this has not been evaluated before. ?? Review of Systems Full review of systems completed and was negative except as mentioned above in HPI Physical Exam Vitals & Measurements T:??98.2?F?? TMIN:??98.0?F?? TMAX:??98.4?F?? HR:??109??(Monitored)?? RR:??14?? BP:??112/60?? SpO2:??100%?? WT:??63.6??kg?? Constitutional: Alert, in no distress. Mental Status: Oriented to person, place and time. Gastrointestinal: Abdomen soft, non-tender, non-distended. No hepatosplenomegaly. Genitourinary: No costovertebral angle tenderness. Neurologic: Cranial nerves II-XII grossly intact. No focal neurological deficits. Moves all extremities spontaneously. Skin: No suspicious lesions noted. No petechiae or purpura.??No jaundice Musculoskeletal: No cyanosis or clubbing. No gross deformities. Normal range of motion. Psychiatric: Appropriate mood and affect Assessment/Plan ?? Post ERCP bleeding on anticoagulation Hemorrhagic shock ?? 83-year-old female with a reported past medical history of aortic stenosis, CAD, hypertension, hyperlipidemia, hypothyroidism, anxiety, recent hospitalization presented to the hospital with GI bleeding. ?? Patient was recently hospitalized with acute cholecystitis and due to her increased risk during surgery she underwent cholecystostomy tube placement on 06/19.?? During hospital course she was noted to have pancreatitis and dilated CBD concerning for choledocholithiasis for which she underwent ERCP on07/12 with successful stone extraction.?? Hospital course complicated by C. difficile diarrhea for which she was treated with vancomycin.?? She was also found to have a lower extremity DVT for which she was started on apixaban and discharged.?? She now presented to the hospital with coffee-ground emesis and bright red blood per rectum followed by melena.?? Patient hemodynamically unstable with ongoing chest pain and EKG changes with significant drop in hemoglobin admitted to the MICU.?? ReceivedKcentra with improvement in vital signs and no further overt bleeding.?? CT angiogram concerning for mid duodenal bleed and this is very concerning for post ERCP bleeding from sphincterotomy in setting of anticoagulation. ?? Plan: Appreciate MICU input and assistance Plan for EGD plus minus ERCP with side-viewing scope for possible post ERCP bleed from the papilla Continue trending hemoglobin and transfuse as appropriate Keep patient n.p.o. IV PPI twice daily Please ensure 2x large-bore IV access at all times Reassess need for anticoagulation Further recommendations to follow-up on endoscopy report ? Thank you for referring this patient to the Division of Gastroenterology, [facility].?Please feel free to reach out with any questions or concerns. ?? The patient's case and management was discussed with Dr. Garry Pond MD Gastroenterology Fellow PGY4?? Division of Gastroenterology, [facility] - [facility] [email or web address] (The above document was created using [employer] voice recognition software. As such, specification consultant errors may occur. Please contact the provider for additional questions and if clarification is needed.)?? Problem List/Past Medical History Ongoing Anxiety HTN (hypertension) Hypothyroidism Left main coronary artery disease Procedure/Surgical History ???Endoscopic retrograde cholangiopancreatography (ERCP); with removal of calculi/debris from biliary/pancreatic duct(s) (07/12/2023) Medications Inpatient Tranexamic Acid Inj, 1 Gm= 10 mL, IVPB, Once Home aspirin 81 mg oral delayed release tablet, 81 mg= 1 tablet, By Mouth, Daily cholecalciferol 1000 intl units oral tablet, 25 mcg= 1 tablet, By Mouth, Daily clonazePAM 0.5 mg oral tablet, 0.5 mg= 1 tablet, By Mouth, 2 times a day Coreg 25 mg oral tablet, 12.5 mg= 0.5 tablet, By Mouth, 2 times a day Docusate Sodium Capsule, 100 mg= 1 capsule, By Mouth, 2 times a day, PRN Eliquis Starter Pack 5 mg oral tablet, 10 mg= 2 tablet, By Mouth, 2 times a day levothyroxine 75 mcg (0.075 mg) oral tablet, 75 mcg= 1 tablet, By Mouth, Daily nortriptyline 50 mg oral capsule, 50 mg= 1 capsule, By Mouth, Daily simethicone 80 mg oral tablet, chewable, 80 mg= 1 tablet, Chew, 3 times a day, PRN simvastatin 40 mg oral tablet, 40 mg= 1 tablet, By Mouth, Daily at bedtime Super B Complex Vitamin B Complex oral tablet, 1 tablet, By Mouth, Daily vancomycin 125 mg oral capsule, 125 mg= 1 capsule, By Mouth, Every 6 hours vancomycin 125 mg oral capsule, 125 mg= 1 capsule, By Mouth, Every 6 hours Allergies penicillin Social History Tobacco Use: Never (less than 100 in lifetime), Former smoker, quit more than 30 days ago. Lab Results Test Name Test Result Date/Time pH Venous (POC) POC Cartridge 7.48 07/23/2023 03:08 EST pCO2 Venous (POC) POC Cartridge 34.9 mm Hg 07/23/2023 03:08 EST pO2 Venous (POC) POC Cartridge 21 mm Hg 07/23/2023 03:08 EST Est Bicarbonate (POC) POC Cartridge 25.8 mmol/L 07/23/2023 03:08 EST % O2 Sat Venous (POC) POC Cartridge 40 07/23/2023 03:08 EST Base Excess (POC) POC Cartridge 2 07/23/2023 03:08 EST Specimen Type - Blood Gas VENOUS 07/23/2023 03:08 EST WBC 10.5 k/mm3 07/23/2023 03:57 EST RBC 2.40 m/mm3 07/23/2023 03:57 EST Hgb 6.7 Gm/dL 07/23/2023 03:57 EST Hct 21.4 % 07/23/2023 03:57 EST MCV 89.2 femtoliters 07/23/2023 03:57 EST MCH 27.9 pg 07/23/2023 03:57 EST MCHC 31.3 g/dL 07/23/2023 03:57 EST Platelet Count 438 k/mm3 07/23/2023 03:57 EST RDW-SD 43.0 femtoliters 07/23/2023 03:57 EST MPV 9.7 femtoliters 07/23/2023 03:57 EST Nucleated RBC (Automated) 0.0 #/100 WBC'S 07/23/2023 03:57 EST Abs. NRBC 0.0 k/mm3 07/23/2023 03:57 EST Hemoglobin (POC) POC Cartridge 7.5 Gm/dL 07/23/2023 03:08 EST Hematocrit (POC) POC Cartridge 22 % 07/23/2023 03:08 EST INR 1.2 07/23/2023 03:57 EST Protime (PT) 13.1 seconds 07/23/2023 03:57 EST Sodium (POC) POC Cartridge 142 mmol/L 07/23/2023 03:08 EST Potassium (POC) POC Cartridge 3.7 mmol/L 07/23/2023 03:08 EST Glucose (POC) POC Cartridge 136 07/23/2023 03:08 EST Ionized Calcium (POC) POC Cartridge 1.15 mmol/L 07/23/2023 03:08 EST Lactate 1.7 mmol/L 07/23/2023 03:57 EST High Sensitivity Troponin (HSTnT) 33 ng/L 07/23/2023 03:57 EST Hold Gel Top SPECIMEN DISCARDED AFTER 1 WEEK 07/23/2023 03:57 EST * Pako Castañeda MD: PERFORM Event Display: Consultation Note Authored Date: [id number] Attending Attestation:??I have seen and evaluated this patient. ??I have discussed the case and itsmanagement with the fellow and agree with the findings and plan as documented in the fellow???s note.?? Note * Francine Jacobo RN: PERFORM Event Display: Discharge/Transfer Note Hospital Authored Date: Nursing Discharge Note Entered On: 07/25/2023 16:43 EST Performed On: 07/25/2023 16:41 EST by Francine Jacobo RN Nursing Discharge Note 2 Discharge Time : 07/25/2023 16:26 EST Discharge Level of Care at Discharge : [facility] facility Discharge Nursing Homes/Rehab Facilities : [facility] Patient Left Unit Via : Ambulance Patient Accompanied Off Unit with : Ambulance/Chair Van Personnel Handover Given to Transport Personnel : Yes DC Instructions Provided & Signed by Pt : No Patient Understands D/C Instructions : No Verbalized Understanding of D/C Plan By : Other: SNF will follow up with discharge instructions Patient Instructions Discharge Signed : No Instructions for Discharge Comments : patient transferred to SNF and they will follow up with discharge instructions Did Pt have Specialty Bed or Wound Vac : No Francine Jacobo RN - 07/25/2023 16:41 EST * Dario Jimenez DO: PERFORM, MODIFY, MODIFY, MODIFY, MODIFY, MODIFY Event Display: Discharge/Transfer Note Hospital Authored Date: [id number] Patient: ??JAIR, JHONNY ? Age:??83 Years?Sex:??Female?:??1940?? Patient Information [facility] Primary Care Physician: Lucian Canela MD Admit Date/Time: 07/23/23 07:11 Discharge Disposition Discharge Disposition: Long Term Facility/Rehab Discharge Diagnosis Duodenal ulcer Hx 5 cm tibial vein thrombosis Hx CAD on ASA Hx improving pancreatitis Hx Cholcystitis w/ BG drain insitu Hx choledocholithiasis s/p ERCP Anxiety Hypertension Severe aortic stenosis Acute hypoxic respiratory failure-resolved Anemia (D64.9) GI bleed (K92.2) Hypovolemic shock (R57.1) ?? _ Discharge Medications Aspirin (aspirin 81 mg oral delayed release tablet)?81?Milligram?By Mouth?Daily Atorvastatin (atorvastatin 80 mg oral tablet)?80?Milligram?By Mouth?Daily at bedtime Cholecalciferol (cholecalciferol 1000 intl units oral tablet)?1?tab(s)?25?Microgram?By Mouth?Daily Clonazepam (clonazePAM 0.5 mg oral tablet)?1?tab(s)?0.5?Milligram?By Mouth?2 times a day?for 2?Days Levothyroxine (levothyroxine 75 mcg (0.075 mg) oral tablet)?1?tab(s)?75?Microgram?ByMouth?Daily Metoprolol (Metoprolol Succinate ER 50 mg oral tablet, extended release)?1?tab(s)?50?Milligram?By Mouth?Daily Multivitamin (Super B Complex Vitamin B Complex oral tablet)?1?tab(s)?By Mouth?Daily Nortriptyline (nortriptyline 50 mg oral capsule)?50?Milligram?1?capsule?By Mouth?Daily Pantoprazole (pantoprazole 40 mg oral delayed release tablet)?40?Milligram?By Mouth?2 times a day Simethicone (simethicone 80 mg oral tablet, chewable)?80?Milligram?1?tablet?Chew?3 times a day?as needed?for 14?Days?Gas ? Medications Started Aspirin (Aspirin Tablet)?81?Milligram?By Mouth?Daily Atorvastatin (atorvastatin 80 mg oral tablet)?80?Milligram?By Mouth?Daily at bedtime Metoprolol (Metoprolol Succinate ER 50 mg oral tablet, extended release)?1?tab(s)?50?Milligram?By Mouth?DailyPantoprazole (pantoprazole 40 mg oral delayed release tablet)?40?Milligram?By Mouth?2 times a day for 3 days followed by qd for 6 weeks Medications Discontinued Simvastatin 40 mg Doses Changed n/a PCP Follow-Up/Heads-Up Pt needs repeat doppler in 2 weeks for assessment of any extension of thrombus into popliteal circulation. Future Appointments Cardiology, GI surgical, PCP Hospital Course ??83-year-old female past medical history severe aortic stenosis, CAD with significant distal left main disease, hypertension, dyslipidemia and multiple recent hospital admission admissions.?? Initially presented end of May with acute cholecystitis managed with cholecystectomy tube given intraoperative risk. Readmitted with Cdiff and possible acute diverticulitis, and again 07/10w/ choledocholithiasis and possible pancreatitis s/p ERCP, course complicated by ongoing Cdiff and occlusive 5 cm thrombus of paired posterior tibial veins and ruptured diaz cyst.??She was discharged at this time on Eliquis and continued on oral vancomycin therapy for C. difficile infection.?Now presenting w/ active UGIB w/ contrast extravasation in duodenum, admitted to ICU for planned upperendoscopy and intubation within the ICU. Intubated for airway protection, s/p EGD in ICU w/ cauterization of non- bleeding duodenal ulcer.??Extubated and doing well. Requiring 3 units of PRBC transfusion. Developed episode of chest pain that was resolved with Sublignaul Nitrogen and blood transufsion. Cardiology??consulted.??Hgb Stable no signs of significant GI bleeding. ? Duodenal ulcer Hx??5 cm tibial vein thrombosis Hx CAD on ASA Hx improving pancreatitis Hx Cholcystitis w/ BG drain insitu Hx choledocholithiasis s/p ERCP ?? Repeat Doppler shows no evidence of above knee DVT. Study did not look for size of below knee thrombosis/wether still present. Weaning off remaining levo, then transferring out of ICU Type II ischemic OR. Pt responded to nitro sublingual and PRBC transfusion overnight. Unlikely to be Type I OR. If pt begins to develop new chest pain will suspect new Type I OR. Cardiology agrees. ECHO on 07/24/23 showing EF 65-75 %. No obvious wall motion abnormalities seen on limited views. Unable to assess diastolic function due??to mitral stenosis . Severe worse from prior ECHO. No signs of signifcant active bleeding. Repeat HH stable no?? repeat CP since transfusion and sublingual N ?? Recommendations ?? -In the event of new Chest pain GI OK with anticoagulation will??get repeat trop EKG. Nitro paste for CP if reoccurs. Additionally contact Cards to discuss utility of cath if CP returns as Type I OR should be considered. -Reach out to GI if repeat GI bleed -Repeat H + H outpt with PCP -Per GI, PPI BID for 5 days followed by 6 weeks of PPI QD given recent bleed (completed 3 days in hospital) -Given no DVT??above??knee and concern for additional bleeding,??but balanced with size of??below knee thrombosis will cont off anticoagulation, and have patient repeat Doppler in 2 weeks time for assessment??of any extension into??popliteal circulation. -Continue ASA -Will transition pt to floor once pt's HH is stable ?? Anxiety clonazepam bid in rehab. Plan: -?ontinue??scheduled pm to avoid withdrawal and have other dose as a prn. -Continue Nortriptyline? HTN Hx CAD Hx Severe ?? Plan: -ASA -Metoprolol succinate 50 mg QD -outpatient cards f/u for severe A.S Objective . Physical Exam General Appearance: The patient appears stable Cardiovascular: S1 and S2 heard with blowing systolic murmor. Respiratory: ??Breath sounds clear to auscultation bilaterally. No added sounds, equal air entry GI: Soft. Nontender and nondistended. Normal bowel sounds present throughout abdomen.?? MS: ??No edema or erythema in the lower extremities. No wounds seen on the feet. Peripheral sensation intact.?? Neuro: ??No slurred speech. ??Patient seen moving their upper and lower extremities independently. Psych: Alert and oriented x3. Appropriate and pleasant. Lines: Peripheral IV in place, GB drain. Consultants Cardiology, GI Patient Education Titles When You Have Gastrointestinal (GI) Bleeding?? Anemia?? Follow-Up Appointments Cardiology, surgical GI Patient Instructions You were recently hospitalized??for??inflammation of your gallbladder??that required??a tube for drainage.?? There is concern for??bleeding in your GI system.?? You are admitted to the ICU??because of the need for??endoscopy??or tube was placed to examine your GI system.?? This also required the??you be intubated??for protecting your airways.?? There was cauterization??of a nonbleeding ulcer??in your duodenum??which is a portion of your??GI system.?? You required??3 blood transfusions as well as medication to help keep your blood pressure up.?? You were??extubated successfully and no longer required medication to help with your blood pressure. Cardiology also saw you because you had a type 2 heart attack which is due to poor blood flow to your??heart??rather than a blood clot. You were started on ASA 81, a higher dose of a statin for your cholesterol Atorvastatin 80 as well as Metoprolol 50 ER to help with your heart. At this time you are not requiring a catherization for your??heart h owever if you develop new chest pain you should return to the hospital. You will also f/u with the outpatient surgical GI for removal of your tube. F/u with Cardiology outpt??will be needed as well. Results Discharge Labs BLOOD BANK Blood Type O Positive ()?? 07/23/2023 01:45 Antibody Screen Negative ()?? 07/23/2023 01:45 RBC Unit ID [id number] ()?? 07/24/2023 11:22 RBC Available PT ()?? 07/24/2023 11:22 ?? BLOOD COUNT & DIFF WBC 10.0 k/mm3 ()?? 07/25/2023 04:35 RBC 3.51 m/mm3 (Low)?? 07/25/2023 04:35 Hgb 10.1 Gm/dL (Low)?? 07/25/2023 04:35 Hct 30.4 % (Low)?? 07/25/2023 04:35 MCV 86.6 femtoliters ()?? 07/25/2023 04:35 MCH 28.8 pg ()?? 07/25/2023 04:35 MCHC 33.2 g/dL ()?? 07/25/2023 04:35 Platelet Count 337 k/mm3 ()?? 07/25/2023 04:35 RDW-SD 48.5 femtoliters (High)?? 07/25/2023 04:35 MPV 9.8 femtoliters ()?? 07/25/2023 04:35 Nucleated RBC (Automated) 0.0 #/100 WBC'S ()?? 07/25/2023 04:35 Abs. NRBC 0.0 k/mm3 ()?? 07/25/2023 04:35 Abs. Neut 7.7 k/mm3 (High)?? 07/23/2023 08:27 Abs. Lymph 3.0 k/mm3 ()?? 07/23/2023 08:27 Abs. [place] 0.7 k/mm3 ()?? 07/23/2023 08:27 Abs. Eo 0.1 k/mm3 ()?? 07/23/2023 08:27 Abs. Baso 0.1 k/mm3 ()?? 07/23/2023 08:27 Neut % 66.0 % ()?? 07/23/2023 08:27 Lymph % 25.3 % ()?? 07/23/2023 08:27 [place] % 5.9 % ()?? 07/23/2023 08:27 Eos % 0.4 % ()?? 07/23/2023 08:27 Baso % 0.7 % ()?? 07/23/2023 08:27 Hemoglobin (POC) POC Cartridge 7.5 Gm/dL (Low)?? 07/23/2023 03:08 Hematocrit (POC) POC Cartridge 22 % (Low)?? 07/23/2023 03:08 Imm Gran 1.7 % ()?? 07/23/2023 08:27 Abs. Imm Gran 0.2 k/mm3 ()?? 07/23/2023 08:27 ?? BLOOD GAS pH Venous (POC) POC Cartridge 7.48 (High)?? 07/23/2023 03:08 pCO2 Venous (POC) POC Cartridge 34.9 mm Hg (Low)?? 07/23/2023 03:08 pO2 Venous (POC) POC Cartridge 21 mm Hg (Low)?? 07/23/2023 03:08 Est Bicarbonate (POC) POC Cartridge 25.8 mmol/L ()?? 07/23/2023 03:08 % O2 Sat Venous (POC) POC Cartridge 40 ()?? 07/23/2023 03:08 Base Excess (POC) POC Cartridge 2 ()?? 07/23/2023 03:08 Specimen Type - Blood Gas VENOUS ()?? 07/23/2023 03:08 ? CARDIAC High Sensitivity Troponin (HSTnT) 506 ng/L (Critical)?? 07/24/2023 11:19 ? CHEM GENERAL Sodium 143 mmol/L ()?? 07/25/2023 04:35 Potassium 3.7 mmol/L ()?? 07/25/2023 04:35 Chloride 109 mmol/L (High)?? 07/25/2023 04:35 Bicarbonate Level 25 mmol/L ()?? 07/25/2023 04:35 Anion Gap 9 ()?? 07/25/2023 04:35 Sodium (POC) POC Cartridge 142 mmol/L ()?? 07/23/2023 03:08 Potassium (POC) POC Cartridge 3.7 mmol/L ()?? 07/23/2023 03:08 Glucose Level 107 mg/dL (High)?? 07/25/2023 04:35 Glucose (POC) POC Cartridge 136 (High)?? 07/23/2023 03:08 Glucose, POC 143 mg/dL (High)?? 07/25/2023 06:36 BUN 6 mg/dL (Low)?? 07/25/2023 04:35 Creatinine-Blood 0.6 mg/dL ()?? 07/25/2023 04:35 Estimated GFR Creatinine 89 ML/MIN/1.73 M2 ()?? 07/25/2023 04:35 Calcium 8.2 mg/dL (Low)?? 07/25/2023 04:35 Ionized Calcium (POC) POC Cartridge 1.15 mmol/L ()?? 07/23/2023 03:08 Phosphorus 3.2 mg/dL ()?? 07/25/2023 04:35 Magnesium 2.1 mg/dL ()?? 07/25/2023 04:35 Protein, Total 5.7 Gm/dL (Low)?? 07/23/2023 01:59 Albumin 3.5 Gm/dL ()?? 07/23/2023 01:59 AG Ratio 1.6 ()?? 07/23/2023 01:59 Alkaline Phosphatase 80 units/L ()?? 07/23/2023 01:59 AST (SGOT) 20 units/L ()?? 07/23/2023 01:59 ALT (SGPT) 22 units/L ()?? 07/23/2023 01:59 Bilirubin, Total 0.2 mg/dL ()?? 07/23/2023 01:59 Lactate 1.7 mmol/L ()?? 07/23/2023 03:57 ? COAG INR 1.2 (High)?? 07/23/2023 03:57 Protime (PT) 13.1 seconds (High)?? 07/23/2023 03:57 ?? ENDOCRINE/TUMOR MARKER TSH 4.98 uIU/mL (High)?? 07/23/2023 01:59 Free T4 1.59 ng/dL ()?? 07/23/2023 01:59 ?? HEME OTHER Hold Lavender Top SPECIMEN DISCARDED AFTER 24 HOURS. ()?? 07/23/2023 08:27 ? MISC. CHEMISTRY Hold Gel Top SPECIMEN DISCARDED AFTER 1 WEEK ()?? 07/23/2023 03:57 ? UA/URINALYSIS Appear/Color, Urine YELLOW ()?? 07/23/2023 02:29 Specific [place], Urine 1.027 ()?? 07/23/2023 02:29 pH, Urine 5.5 ()?? 07/23/2023 02:29 Albumin, Urine 1+ (Abnormal)?? 07/23/2023 02:29 Glucose, Urine NEGATIVE ()?? 07/23/2023 02:29 Ketones, Urine NEGATIVE ()?? 07/23/2023 02:29 Bilirubin, Urine NEGATIVE ()?? 07/23/2023 02:29 Hemoglobin, Urine 3+ (Abnormal)?? 07/23/2023 02:29 Nitrite, Urine NEGATIVE ()?? 07/23/2023 02:29 Leukocyte, Urine NEGATIVE ()?? 07/23/2023 02:29 Urobilinogen NORMAL mg/dL ()?? 07/23/2023 02:29 WBC's, Urine 1 /HPF ()?? 07/23/2023 02:29 RBC's, Urine >182 /HPF (High)?? 07/23/2023 02:29 Squamous Epith 1 /HPF ()?? 07/23/2023 02:29 Calcium Oxal SLIGHT /HPF ()?? 07/23/2023 02:29 Mucus SLIGHT /LPF ()?? 07/23/2023 02:29 Hold Urine Culture Testing available 48 hours from time of collection. ()?? 07/23/2023 02:29 ? VIROLOGY Influenza A PCR NEGATIVE ()?? 07/23/2023 02:00 Influenza B PCR NEGATIVE ()?? 07/23/2023 02:00 RSV PCR NEGATIVE ()?? 07/23/2023 02:00 COVID-19 PCR Specimen Source NASAL ()?? 07/23/2023 02:00 COVID-19 PCR Result NEGATIVE ()?? 07/23/2023 02:00 ? 30??minutes spent on discharge ? Patient care discussed with Dr. Jeaneth Jimenez, DO Internal Medicine PGY-1 Pager [phone]?? * Kely Eric MD: PERFORM Event Display: Discharge/Transfer Note Hospital Authored Date: CRITICAL CARE ATTENDING NOTE Patient seen and examined, data reviewed, case and management discussed with house staff on rounds on the date of service (07/25/23). ??I confirmed the findings and agree with the resident???s documentation.?? Patient appropriate for discharge. ?? * Dario Jimenez DO: PERFORM Event Display: Discharge/Transfer Note Hospital Authored Date: [id number] Metoprolol 25 XR QD instead of 50 XR QD for correct dose * Vitaly DURON, Angie Baxter: PERFORM, SIGN, VERIFY Event Display: Case Management Discharge Plan Authored Date: [id number] Patient: JHONNY SHARP Age: 83 years Sex: Female : 1940 Associated Diagnoses: None Author: Angie Haider RN Discharge Plan Case Management Discharge Plan : Case Management Discharge Plan Data 07/25/2023 13:03 EST Discharge Level of Care at Discharge [facility] facility Discharge Nursing Homes/Rehab Facilities [facility] Discharge Transportation Arranged [facility] [address] [place] [address] Discharge Arranged Transport Date/Time 07/25/2023 15:30 Mode of Transportation Arranged Ambulance Service Categories #1 Occupational Therapy, Physical Therapy, Long Term Service Comments #1 [facility] - you will be returning to facility today for continued rehabilitation * Jocelyne DURON, Paige Leonard: PERFORM, MODIFY Event Display: Patient Education/Instruction Authored Date: [id number] Inpatient Adult Discharge Instructions. [address] [address] Name: JHONNY SHARP : 1940?? Visit: 07/23/2023 07:11?? Current Date: 07/25/2023 15:45 ?? Account: [id number]?? Inpatient Adult Discharge Instructions We would like [...] and their families. Surveys are administered by [employer] ?? If further treatment with your primary care physician or another doctor is recommended, it is important for you to keep the appointment. Call your primary care physician or return to the Emergency Department immediately if your condition worsens, fails to improve, or new symptoms develop. If you need to find a doctor, you can call [facility] for a referral at [phone] or toll free at [phone]) or log in to [email or web address].. ?? [facility], in keeping with [facility] guidance, no longer requires face masks for [...] portal or by using a health care addi of your choosing. [employer] is a website that allows you to securely view your medical information including your hospital discharge summary, office visit summaries, medications and follow-up visits. You can also request appointments, renew medications, and request access to your medical information using a health care addi of your choosing, or just ask a question. You can enroll at [email or web address] or register during your next office visit. You have been discharged from [facility], Patient Care Unit: MICU??. If you have any questions regarding these instructions, including results of studies pending, afteryou leave, please call us and we will be happy to assist you 08/01. [facility] Your Care Team Attending Physician Kely Eric MD?? Consulting Providers Kely Eric MD?? Discharging Providers Dario Jimenez DO Reason for Your Visit Vomiting, urinating, deficating blood?? Your Diagnosis General medical Tests Performed Below is a partial list of the tests performed during your hospitalization. You may have had other tests and procedures not included in this list. Please discuss all test results with your provider. BASE EXCESS POC CARTRIDGE Basic Metabolic Panel CALCIUM IONIZED POC CART CBC CBC w/ Differential Comprehensive Metabolic Panel COVID-19, RSV, and Flu A/B, Rapid PCR FREE T4 GLUCOSE POC GLUCOSE POC CARTRIDGE H + H HEMATOCRIT POC CARTRIDGE HEMOGLOBIN POC CARTRIDGE High??Sensitivity??Troponin T HOLD GEL TUBE HOLD LAVENDER TUBE INR Lactate Level Lactic Acid Level Mg Level Phosphorus Level POTASSIUM POC CARTRIDGE SODIUM POC CARTRIDGE Troponin T, High Sensitivity TSH with T4 Reflex (Adults Only) Type and Screen Urinalysis w/hold for Urine Culture VBG POC CARTRIDGE CT Angio Abdomen and Pelvis CXR Portable Doppler Ext Lower Venous Bilat (US) Blood Culture #2?? Transfuse RBCs?? Primary Care Provider Lucian Canela MD? Discharge Vitals Temperature: 98.3 DegF Height: 158.2 cm Pulse Rate:??130 bpm??High Weight: 63.6 kg Respiratory Rate: 16 br/min Body Mass Index:??25.41 kg/m2??High Systolic Blood Pressure: 102 mm Hg Body surface area: 1.67 Diastolic Blood Pressure: 57 mm Hg ?? Oxygen Saturation: 95 % ?? Studies Pending All studies ordered during this hospital stay have been completed unless listed below. Please discuss all pending results with your provider listed above in these instructions. ?? Blood Culture #2?? Transfuse RBCs?? What to do next Instructions From Your Doctor You were recently hospitalized??for??inflammation of your gallbladder??that required??a tube for drainage.?? There is concern for??bleeding in your GI system.?? You are admitted to the ICU??because of the need for??endoscopy??or tube was placed to examine your GI system.?? This also required the??you be intubated??for protecting your airways.?? There was cauterization??of a nonbleeding ulcer??in your duodenum??which is a portion of your??GI system.?? You required??3 blood transfusions as well as medication to help keep your blood pressure up.?? You were??extubated successfully and no longer required medication to help with your blood pressure. Cardiology also saw you because you had a type 2 heart attack which is due to poor blood flow to your??heart??rather than a blood clot. You were started on ASA 81, a higher dose of a statin for your cholesterol Atorvastatin 80 as well as Metoprolol 50 ER to help with your heart. At this time you are not requiring a catherization for your??heart h owever if you develop new chest pain you should return to the hospital. You will also f/u with the outpatient surgical GI for removal of your tube. F/u with Cardiology outpt??will be needed as well. ?? Orders? 07/25/23 14:50:00 EST?? Discharge Medications JHONNY SHARP :1940 Visit Date:07/23/2023 Medications: Please continue your medications until treatment is completed or stopped by your provider. Medications not listed below should be discontinued. Discuss any questions related to medications with your provider. What How Much When Instructions Next Dose New Atorvastatin (atorvastatin 80 mg oral tablet) 80 Milligram Oral Daily at Bedtime Refills: 3 Pickup at [place] [address] 07/25/2301/08/2100 New Metoprolol (Metoprolol Succinate ER 50 mg oral tablet, extended release) 1 tab(s) Oral Daily Pickup at [facility] 3 MD to change to 25mg daily New Pantoprazole (pantoprazole 40 mg oral delayed release tablet) 40 Milligram Oral Twice a day Pickup at [place] [address] 07/25/232099 Changed Aspirin (aspirin 81 mg oral delayed release tablet) 81 Milligram Oral Daily Pickup at [place] [address] 07/26/23 0800 Unchanged Cholecalciferol (cholecalciferol 1000 intl units oral tablet) 1 tab(s) Oral Daily 07/26/232099 Unchanged Clonazepam (clonazePAM 0.5 mg oral tablet) 1 tab(s) Oral Twice a day Duration: 2 Days 07/25/2301/08/2100 Unchanged Levothyroxine (levothyroxine 75 mcg (0.075 mg) oral tablet) 1 tab(s) Oral Daily 07/26 Unchanged Multivitamin (Super B Complex Vitamin B Complex oral tablet) 1 tab(s) Oral Daily 07/26 Unchanged Nortriptyline (nortriptyline 50 mg oral capsule) 1 capsule Oral Daily 07/26 Unchanged Simethicone (simethicone 80 mg oral tablet, chewable) 1 tab(s) Chew 3 times a day as needed for Gas Duration: 14 Days as needed Pharmacy Information [facility]: [address], [place] [id number] [phone] ?? What How Much When Comments Stop Taking apixaban (Eliquis Starter Pack 5 mg oral tablet) 2 tab(s) Oral Twice a day Duration: 7 Days followed by 1 tablet by mouth twice daily for 23 days; as directed on package labeling; will need to follow up with PCP for refills ?? Stop Taking Carvedilol (Coreg 25 mg oral tablet) 0.5 tab(s) Oral Twice a day Duration: 30 Days Pt is on Nebivolol 10 mg po daily. Conversion is Coreg 25 bid. May adjust dose per evidence. ?? Stop Taking Docusate (Docusate Sodium Capsule) 100 Milligram Oral Twice a day as needed for Constipation Stop Taking Simvastatin (simvastatin 40 mg oral tablet) 1 tab(s) Oral Daily at Bedtime Stop Taking Vancomycin (vancomycin 125 mg oral capsule) 1 capsule Oral Every 6 hours Duration: 4 Days Stop Taking Vancomycin (vancomycin 125 mg oral capsule) 1 capsule Oral Every 6 hours Duration: 7 Days Prescription Given During Visit Aspirin (aspirin 81 mg oral delayed release tablet) - 81 mg, By Mouth, Daily, # 90 tablet, 0 Refills, [facility], [address] [place] [address] [phone]?? Atorvastatin (atorvastatin 80 mg oral tablet) - 80 mg, By Mouth, Daily at bedtime, # 90 tablet, 3 Refills, [facility] [address], [address] [place] [phone]?? Metoprolol (Metoprolol Succinate ER 50 mg oral tablet, extended release) - 1 tablet = 50 mg, By Mouth, Daily, # 90 tablet, 0 Refills, [facility], [address] [place] [address] [phone]?? Pantoprazole (pantoprazole 40 mg oral delayed release tablet) - 40 mg, By Mouth, 2 times a day, # 90 tablet, 0 Refills, [facility] [address], [address] [place] [phone]?? Laboratory Results Below is a partial list of the most recent Laboratory test results done prior to this discharge. You may have had other tests and procedures not included in this list. Please discuss all test resultswith your provider. RBC Available - PT (07/24/2023) RBC Unit ID - [id number] (07/24/2023) BASE EXCESS POC CARTRIDGE (07/23/2023) ???Base Excess (POC) POC Cartridge - 2 Basic Metabolic Panel (07/25/2023) ???Sodium - 143 mmol/L???Potassium - 3.7 mmol/L???Chloride - 109 mmol/L???Bicarbonate Level - 25 mmol/L???Anion Gap - 9???Glucose Level - 107 mg/dL???BUN - 6 mg/dL???Creatinine-Blood - 0.6 mg/dL???Estimated GFR Creatinine - 89 ML/MIN/1.73 M2???Calcium - 8.2 mg/dL CALCIUM IONIZED POC CART (07/23/2023) ???Ionized Calcium (POC) POC Cartridge - 1.15 mmol/L CBC (07/25/2023) ???WBC - 10.0 k/mm3???RBC - 3.51 m/mm3???Hgb - 10.1 Gm/dL???Hct - 30.4 %???MCV - 86.6 femtoliters???MCH - 28.8 pg???MCHC - 33.2 g/dL???Platelet Count - 337 k/mm3???RDW-SD - 48.5 femtoliters???MPV - 9.8 femtoliters???Nucleated RBC (Automated) - 0.0 #/100 WBC'S???Abs. NRBC - 0.0 k/mm3 CBC w/ Differential (07/23/2023) ???WBC - 11.7 k/mm3???RBC - 2.74 m/mm3???Hgb - 7.8 Gm/dL???Hct - 24.0 %???MCV - 87.6 femtoliters???MCH - 28.5 pg???MCHC - 32.5 g/dL???Platelet Count - 373 k/mm3???RDW-SD - 43.8 femtoliters???MPV - 9.5 femtoliters???Nucleated RBC (Automated) - 0.0 #/100 WBC'S???Abs. NRBC - 0.0 k/mm3???Abs. Neut - 7.7 k/mm3???Abs. Lymph - 3.0 k/mm3???Abs. [place] - 0.7 k/mm3???Abs. Eo - 0.1 k/mm3???Abs. Baso - 0.1 k/mm3???Neut % - 66.0 %???Lymph % - 25.3 %???[place] % - 5.9 %???Eos % - 0.4 %???Baso % - 0.7 %???Imm Gran- 1.7 %???Abs. Imm Gran - 0.2 k/mm3 Comprehensive Metabolic Panel (07/23/2023) ???Sodium - 142 mmol/L???Potassium - 4.1 mmol/L???Chloride - 104 mmol/L???Bicarbonate Level - 26 mmol/L???Anion Gap - 12???Glucose Level - 149 mg/dL???BUN - 24 mg/dL???Creatinine-Blood - 0.7 mg/dL???Estimated GFR Creatinine - 88 ML/MIN/1.73 M2???Calcium - 8.9 mg/dL???Protein, Total - 5.7 Gm/dL???Albumin - 3.5 Gm/dL???AG Ratio - 1.6???Alkaline Phosphatase - 80 units/L???AST (SGOT) - 20 units/L???ALT (SGPT) - 22 units/L???Bilirubin, Total - 0.2 mg/dL COVID-19, RSV, and Flu A/B, Rapid PCR (07/23/2023) ???Influenza A PCR - NEGATIVE???Influenza B PCR - NEGATIVE???RSV PCR - NEGATIVE???COVID-19 PCR Specimen Source - NASAL???COVID-19 PCR Result - NEGATIVE FREE T4 (07/23/2023) ???Free T4 - 1.59 ng/dL GLUCOSE POC (07/25/2023) ???Glucose, POC - 143 mg/dL GLUCOSE POC CARTRIDGE (07/23/2023) ???Glucose (POC) POC Cartridge - 136 H + H (07/24/2023) ???Hgb - 10.4 Gm/dL???Hct - 30.9 % HEMATOCRIT POC CARTRIDGE (07/23/2023) ???Hematocrit (POC) POC Cartridge - 22 % HEMOGLOBIN POC CARTRIDGE (07/23/2023) ???Hemoglobin (POC) POC Cartridge - 7.5 Gm/dL High??Sensitivity??Troponin T (07/23/2023) ???High Sensitivity Troponin (HSTnT) - 27 ng/L HOLD GEL TUBE (07/23/2023) ???Hold Gel Top - SPECIMEN DISCARDED AFTER 1 WEEK HOLD LAVENDER TUBE (07/23/2023) ???Hold Lavender Top - SPECIMEN DISCARDED AFTER 24 HOURS. INR (07/23/2023) ???INR - 1.2???Protime (PT) - 13.1 seconds Lactate Level (07/23/2023) ???Lactate - 2.2 mmol/L Lactic Acid Level (07/23/2023) ???Lactate - 1.7 mmol/L Mg Level (07/25/2023) ???Magnesium - 2.1 mg/dL Phosphorus Level (07/25/2023) ???Phosphorus - 3.2 mg/dL POTASSIUM POC CARTRIDGE (07/23/2023) ???Potassium (POC) POC Cartridge - 3.7 mmol/L SODIUM POC CARTRIDGE (07/23/2023) ???Sodium (POC) POC Cartridge - 142 mmol/L Troponin T, High Sensitivity (07/24/2023) ???High Sensitivity Troponin (HSTnT) - 506 ng/L TSH with T4 Reflex (Adults Only) (07/23/2023) ???TSH - 4.98 uIU/mL Type and Screen (07/23/2023) ???Blood Type - O Positive???Antibody Screen - Negative Urinalysis w/hold for Urine Culture (07/23/2023) ???Appear/Color, Urine - YELLOW???Specific [place], Urine - 1.027???pH, Urine - 5.5???Albumin, Urine - 1+???Glucose, Urine - NEGATIVE???Ketones, Urine - NEGATIVE???Bilirubin, Urine - NEGATIVE???Hemoglobin, Urine - 3+???Nitrite, Urine - NEGATIVE???Leukocyte, Urine - NEGATIVE???Urobilinogen - NORMAL???WBC's, Urine - 1 /HPF? ?RBC's, Urine - >182 /HPF? ?Squamous Epith - 1 /HPF? ?Calcium Oxal - SLIGHT???Mucus - SLIGHT???Hold Urine Culture - Testing available 48 hours from time of collection. VBG POC CARTRIDGE (07/23/2023) ???pH Venous (POC) POC Cartridge - 7.48???pCO2 Venous (POC) POC Cartridge - 34.9 mm Hg???pO2 Venous(POC) POC Cartridge - 21 mm Hg???Est Bicarbonate (POC) POC Cartridge - 25.8 mmol/L???% O2 Sat Venous (POC) POC Cartridge - 40???Specimen Type - Blood Gas - VENOUS Allergies (NKA means No Known Allergies) penicillin Problems Active Problems??(4) Anxiety?? HTN (hypertension)?? Hypothyroidism?? Left main coronary artery disease?? Education Materials Below is the list of Educational Leaflet Providered with your Discharge Instructions. When You Have Gastrointestinal (GI) Bleeding?? Anemia?? Valuables and Belongings I fully understand and agree that [facility] accepts no responsibility for all my [...] to send valuables and belongings home. ?? Review of Valuable and Belonging List: With patient Possessions released to: patient to be transfered to [facility] via ambulance Date for Pt to Sign Valuables/Belongings: 07/25/23 15:43:00 ?? Other Discharge Information ? Case Management Discharge Plan?? Discharge Plan?? Discharge Agency Information?? Discharge Level of Care at Discharge: [facility] facility Service Categories #1: Occupational Therapy, Physical Therapy, Long Term Discharge Rx Program: Discharge Prescription Program Service Comments #1: [facility] - you will be returning to facility today for continued rehabilitation Discharge Rx Program: Discharge Prescription Program ?? Discharge Transportation Arranged: [facility] [address] [place] [address] ??[phone] ?? Mode of Transportation Arranged: Ambulance ?? Discharge Arranged Transport Date/Time: 07/25/23 15:30:00 ?? Discharge Nursing Homes/Rehab Facilities: [facility] ? Pulmonary Rehab Status?? Pulmonary Rehab Discharge Status?? Respiratory Rate: 16 br/min PEEP: 5 ? Common Emergency Awareness Tips IS IT [...] are strongly encouraged to quit. Please call [facility] [employer] at [phone] or [phone] ([phone]) or log in to [email or web address] for referrals to smoking cessation programs. ?? 980 Suicide & Crisis Lifeline is available 08/01 if you or someone you know needs to find a reason to keep living. By calling 539 you'll be connected to a skilled, trained counselor at a crisis center in your area. INPATIENT DISCHARGE INSTRUCTIONS SIGNATURE PAGE JHONNY SHARP Location:[facility] Registration Date and Time:07/23/2023 07:11 EST Primary Care Physician: Hilton STOVER, Lucian, Attending Physician: Jeaneth STOVER, Kely, I JHONNY SHARP, have received the above patient education materials/instructions and have verbalized understanding. If ambulance or transport services are being used I further acknowledge being given a choice of service. ?? If you need to contact me, please call me at this number: . Patient/Nuclear Reactor Engineer Name: Patient/Nuclear Reactor Engineer Signature: Relationship to Patient: Witness Name/Signature: Date: * Dario Jimenez DO: PERFORM Event Display: Patient Education Leaflets Authored Date: [id number] When You Have Gastrointestinal (GI) Bleeding ?? [address]119 When You Have Gastrointestinal (GI) Bleeding Blood in your vomit or stool can be a sign of gastrointestinal (GI) bleeding. GI bleeding can be scary. But the cause may not be serious. You should??always??see your healthcare provider if you have GI bleeding. The GI tract is the path through which??food travels in the body. Food passes from the mouth down the esophagus. This is the tube from the mouth to the stomach. Food starts to break down in the stomach. It then moves through the duodenum ,??the first part of the small intestine . Nutrients are absorbed as food travels through the small intestine. What is left passes into the colon (large intestine) as waste. The colon removes water from the waste. Waste continues from the colon to the rectum (where stool is stored). Waste then leaves the body through the anus . The upper GI tract is from the mouth through the duodenum. The lower GI tract is from the end of the duodenum to the anus. Causes of GI bleeding GI bleeding can be caused by many different problems. Some of the more common causes include: ??? Swollen veins in the anus (hemorrhoids) ??? Swollen veins in the esophagus (varices) ??? Sore on the lining of the GI tract (ulcer) ??? Cuts or scrapes in the mouth or throat ??? Infection caused by germs such as bacteria or parasites ??? Food allergies, such as milk allergy in young children ??? Medi cines, especially aspirin, blood thinners, and NSAIDs (non-steroidal anti- inflammatory drugs) such as ibuprofen ??? Inflammation of the GI tract (gastritis or esophagitis) ??? Colitis (Crohn's disease or ulcerative colitis) ??? Cancer (tumors or polyps) ??? Abnormal pouches in the colon (diverticula) ??? Tears in the esophagus or anus ??? Nosebleed ??? Abnormal blood vessels in the GI tract (angiodysplasia) ?? Diagnosing the cause of blood in stool If blood is coming out in your stool, you may have a lower GI tract problem??or a very fast upper GI tract bleed. Bleeding from the GI tract can be bright red. Or it may look dark and tarry.??Tests may also find blood in your stool that can???t be seen with the eye (occult blood). To find out the cause, tests that may be ordered include: ??? Blood tests. A blood sample is taken and sent to a lab for exam. ??? Hemoccult test. Checks a stool sample for blood. ??? Stool culture and other stool-based tests. These check a stool sample for bacteria or parasites, inflammation, and other problems ???X-ray, ultrasound, nuclear scan, or CT scan. Imaging tests that take pictures of the digestive tract. ??? Colonoscopy or sigmoidoscopy. This test uses a flexible tube with a tiny camera. The tube is inserted through your anus into your rectum to see the inside of your colon. Your provider can also take a tiny tissue sample (biopsy) to be looked at in a lab. They can also treat a bleeding source ??? Capsule endoscopy. This test uses a tiny camera that is swallowed, passes through the intestine, a nd takes pictures of the small intestine. This is harder to reach with scopes. ?? Diagnosing the cause of blood in vomit If you are vomiting blood or something that looks like coffee grounds,??you may have an upper GI tract problem. To find the cause, tests that may be done include: ??? Upper endoscopy. A flexible tubewith a tiny camera is inserted through your mouth and throat to see inside your upper GI tract. This lets your provider take a tiny tissue sample (biopsy) to be looked at in a lab. They can also treat a bleeding source. ??? Nasogastric lavage and aspiration. The healthcare provider may withdraw some of the fluid in the stomach to test it for bleeding. This can sometimes tell if you have upper GI or lower GI bleeding. ??? X-ray, ultrasound, nuclear scan, or CT scan. Imaging tests that take pictures of your digestive tract. ??? Upper GI series. X-rays of the upper part of your GI tract taken after swallowing a contrast drink. ??? Enteroscopy. This sends a flexible tube or a small, swallowed capsule camera into your small intestine. ?? Call 911 Call 911 if any of the following occur: ??? Bleeding from your mouth or anus that can't be stopped ??? Bleeding along with feeling lightheaded or dizzy ?? When to call your healthcare provider Call your healthcare provider right away if you have any of the following: ??? Fever of 100.4?? F??( 38.0??) or above, or as directed by your provider ??? Signs of fluid loss (dehydration). These include a dry, sticky mouth, decreased urine output, and very dark urine. ??? Belly (abdominal) pain ?? Last Reviewed Date: 2021 ?? 2201-9139 [employer]. All rights reserved. This information is not intended as a substitute for professional medical care. Always follow your healthcare professional's instructions. ?? * Dario Jimenez DO: PERFORM Event Display: Patient Education Leaflets Authored Date: [id number] Anemia ?? 02123 Anemia Anemia is a condition that occurs when your body doesn't have enough healthy red blood cells (RBCs). RBCs are the parts of your blood that carry oxygen all over your body. A protein called hemoglobinallows your RBCs to absorb and release oxygen. Without enough RBCs or hemoglobin, your body doesn'tget enough oxygen. Symptoms of anemia may then occur. What are the symptoms of anemia? Some people with anemia have no symptoms. But most people have symptoms that range from mild to severe. These can include: ??? Extreme tiredness (fatigue) ??? Weakness ??? Pale skin ??? Shortness of breath ??? Feeling dizzy or fainting ??? Rapid or irregular heartbeat ??? Trouble doing normal amounts of activity ??? Yellowing of your eyes, skin, or mouth and dark urine (jaundice) ??? Headache ???Cold hands or feet ??? Chest pain ??? Pounding or whooshing sound in your ears ?? What causes anemia? Anemia can occur when your body: ??? Loses too much blood ??? Doesn't make enough RBCs ??? Destroys your RBCs at a faster rate than it can replace them ??? Doesn't make a normal amount of hemoglobin in your RBCs These problems can occur for many reasons, including: ??? A condition that you're born with (congenital or inherited), such as sickle cell disease or thalassemia ??? Heavy bleeding for any reason, including injury, surgery, childbirth, or even heavy menstrual periods ??? Being low in certain nutrients, such as iron, folate, or vitamin B-12 ??? Certainlong-term (chronic) conditions such as diabetes, arthritis, or kidney disease ??? Certain chronic in fections such as tuberculosis or HIV ??? Exposure to certain medicines, such as those used for chemotherapy There are different types of anemia. Your healthcare provider can tell you more about the type of anemia you have and what may have caused it. ?? How is anemia diagnosed? To diagnose anemia, your healthcare provider orders blood tests. These can include: ??? Complete blood cell count (CBC). This test measures the amounts of the different types of blood cells. ??? Blood smear. This test checks the size and shape of your blood cells. To do the test, a drop of your blood is looked at under a microscope. A stain is used to make the blood cells easier to see. ??? Iron studies. These tests measure the amount of iron in your blood. Your body needs iron to make hemoglobin in your RBCs. ??? Vitamin B-12 and folate studies. These tests check for some of the components that help give RBCs a normal size and shape. ??? Reticulocyte count. This test measures the amount ofnew RBCs that your bone marrow makes. ??? Hemoglobin electrophoresis. This test checks for problemswith your hemoglobin in RBCs. ??? Lactate dehydrogenase (LDH) and haptoglobin levels. These tests check the amount of substances in your blood called LDH and haptoglobin. Both LDH and haptoglobin levels can be abnormal with a type of anemia that destroys red blood cells (hemolytic anemia). ??? Bone marrow biopsy. This test evaluates the bone marrow where RBCs are made. ?? How is anemia treated? Treatment for anemia is based on the type of anemia, its cause, and the severity of your symptoms. Treatments may include: ??? Diet changes. This includes increasing the amount of certain nutrients in your diet, such as iron, vitamin B-12, or folate. Your healthcare provider may also prescribe nutrient supplements. ??? Medicines. Certain medicines treat the cause of your anemia. Others help buildnew RBCs or ease symptoms. If a medicine is the cause of your anemia, you may need to stop or change it. ??? Blood transfusions. Replacing some of your blood can increase the number of healthy RBCs in your body. ??? Surgery. In some cases, your healthcare provider may do surgery to treat the underlying cause of anemia. If you need surgery, your healthcare provider will explain the procedure and outline the risks and benefits for you. ?? What are the long-term concerns? If you have a certain type of anemia, you can expect a full recovery after treatment. If you have other types of anemia (especially a type you're born with), you'll need to manage it for life. Your healthcare provider can tell you more. ?? Last Reviewed Date: 2021 ?? [id number] [employer]. All rights reserved. This information is not intended as a substitute for professional medical care. Always follow your healthcare professional's instructions. ?? Patient Care team information Care Team Personnel Name: Howie Brown RN Position: [facility] RN Member Role: Primary Care Nurse Name: Arianna Cali RN Position: [facility] RN Member Role: Primary Care Nurse Name: Bhavana Camacho RN Position: [facility] RN Member Role: Primary Care Nurse Name: Shannon Weeks RN Position: [facility] RN Member Role: Primary Care Nurse Name: Marisabel Motley RN Position: [facility] RN Member Role: Primary Care Nurse Name: Sherrill Hendrickson RN Position: [facility] RN Member Role: Primary Care Nurse Name: Sharifa Schneider Position: [facility] RN Suptracy Member Role: Primary Care Nurse Name: Lucian Canela MD Position: [facility] Outreach Member Role: PCP Address: Address: [address] [place] [address] [address] [place] [address]- Name: Gracy Wu RN Position: S RN Member Role: Primary Care Nurse Name: Alma Gray RN Position: S RN Member Role: Primary Care Nurse Name: Francine Jacobo RN Position: S RN Member Role: Primary Care Nurse Name: Luana Odonnell RN Position: S RN Member Role: Primary Care Nurse Name: Bebeto Gallegos RN Position: [facility] RN Member Role: Primary Care Nurse Care Team Related Persons Name: MADISYN PHILLIP Address: home [address] [place] [address] Name: ALE SHARP Address: home [address] [place] [address] Name: ARTEM SHARP Address: home SAME PT
--- OUTSIDE RECORDS SUMMARY | 2023-09-17 14:06 | XMS_ITS | Continuity of Care Document ---
Author Name Unknown Organization [facility] Address [address] [place] [address]- Care Team Providers Care Textile Screen Maker Name Role Phone Hilton STOVER, Lucian Primary Care Physician [phone] [place] [facility]22[place]23 - 07/22/23 [facility] [address] [place] [address]- Attending Physician: Darrel Cardenas Admitting Physician: Darrel Cardenas Referring Physician: AdmtrDarrel Allergies, Adverse Reactions, Alerts Substance Reaction Severity [...] 74 tablet, 0 Refills,Maintenance, 07/17/23 12:55:00 EST, [facility]... Start Date: 07/17/23 Stop Date: 07/24/23 [...] opioid drug. Start Date: 08/14/22 Status: Ordered simethicone 80 mg oral tablet, chewable 80 mg, 1, tablet, Chew, 3 times a day, PRN, for 14 days, # 36 tablet, Refills 0, Tot. Refills 0, Acute 07/31/23 12:56:00 EST, Gas, 07/17/23 12:56:00 EST, Route to Pharmacy Electronically, [facility], Partial fill upon patient [...] 07/24/23 12:54:00 EST, 07/17/23 12:54:00 EST, Capsule, [facility], Partial fill upon patient request if the prescription is for a schedule II opioid... Start Date: 07/17/23 Stop Date: 07/24/23 Status: Ordered Problem List Condition Confirmation Course Effective Dates Status H ealth Status Informant Anxiety Confirmed Active HTN (hypertension) Confirmed Active Hypothyroidism Confirmed Active Left main coronary artery disease Confirmed Active Social History Social History Type Response Smoking Status Never (less than 100 in lifetime);Former smoker, quit more than 30 days ago entered on: 06/17/23 Sex Patient Care team information Care Team Personnel Name: Howie Brown RN Position: [facility] RN Member Role: Primary Care Nurse Name: Arianna Cali RN Position: S RN Member Role: Primary Care Nurse Name: Bhavana Camacho RN Position: S RN Member Role: Primary Care Nurse Name: Shannon Weeks RN Position: S RN Member Role: Primary Care Nurse Name: Lucian Canela MD Position: S Outreach Member Role: PCP Address: Address: [address] [place] [address] [address] [place], [place] [address] Name: Gracy Wu RN Position: [facility] RN Member Role: Primary Care Nurse Name: Alma Gray RN Position: S RN Member Role: Primary Care Nurse Name: Luana Odonnell RN Position: [facility] RN Member Role: Primary Care Nurse Name: Bebeto Gallegos RN Position: [facility] RN Member Role: Primary Care Nurse Care Team Related Persons Name: MADISYN PHILLIP Address: home [address] [place] [address] Name: ALE ADAM Address: home [address] [place] [address] Name: ARTEM ADAM Address: home SAME PT
--- OUTSIDE RECORDS SUMMARY | 2023-09-17 14:06 | XMS_ITS | Continuity of Care Document ---
Author Name Unknown Organization [facility] Sofia marlen Address [address] [place] [id number]- Care Team Providers Care Wharf Builder Name Role Phone Kelly STOVER, Jerman De León Primary Care Physic gerhard Encounter [facility] [place](s): 09/08/22 - 09/15/22 [facility] [address] [place] [id number]- Attending Physician: Franklin Bansal MD Referring Physician: Marnie STOVER, Clifford Watkins Medications aspirin 81 mg oral delayed release tablet 81 mg, 1, tablet, By Mouth, Daily, # 30 tablet, Refills 0, Maintenance, 08/14/22 6:16:00 EST, Partial fill upon patient request if the prescription is for a schedule II opioid drug. Start Date: 08/14/22 Status: Ordered Benicar HCT 12.5 mg-40 mg oral tablet 1 tablet, By Mouth, Daily, # 30 tablet, 0 Refills, Maintenance, 08/14/22 6:18:00 EST, Tablet, Partial fill upon patient request [...] mg, By Mouth, 2 times a day, 0 Refills, Maintenance, 08/14/22 6:17:00 EST, Tablet, Partial fill upon patient request if the prescription is for a schedule II opioid drug. Start Date: 08/14/22 Status: Ordered levothyroxine 75 mcg (0.075 mg) oral tablet 1 tablet = 75 mcg, By Mouth, Daily, # 60 tablet, 0 Refills, Maintenance, 08/14/22 6:20:00 EST, Tablet, Partial fill upon patient request if the prescription is for a schedule II opioid drug. Start Date: 08/14/22 Status: Ordered nebivolol 10 mg oral tablet 1 tablet = 10 mg, By Mouth, Daily, # 30 tablet, 0 Refills, Maintenance, 08/14/22 6:15:00 EST, Tablet, Partial fill upon patient request if the prescription is for a schedule II opioid drug. Start Date: 08/14/22 Status: Ordered nortriptyline 50 mg oral capsule 50 mg, 1, capsule, By Mouth, Daily, Refills 0, Maintenance, 08/14/22 6:17:00 EST, Partial fill uponpatient request if the prescription is for a schedule II opioid drug. Start Date: 08/14/22 Status: Ordered simvastatin 40 mg oral tablet [...] opioid drug. Start Date: 08/14/22 Status: Ordered Vital Signs Most recent to oldest [Reference Range]: 1 Height 157.4 cm (09/08/22 2:20 PM) Weight 72.9 kg (09/08/22 2:20 PM) Oxygen Saturation [94-100 %] 96 % (09/08/22 2:20 PM) Pulse Rate [55-90 bpm] 80 bpm (09/08/22 2:20 PM) Body Mass Index [18.5-24.99 kg/m2] 29.43 kg/m2 *H* (09/08/22 2:20 PM) Blood Pressure [90-138/55-84 mm Hg] 114/ 62mm Hg (09/08/22 2:20 PM) Respiratory Rate [16-30 br/min] 18 br/mi n (09/08/22 2:20 PM) Mode of Delivery (Oxygen) Room air (09/08/22 2:20 PM) Blood pressure sites Arm, right (09/08/22 2:20 PM) Weight Obtained Via Patient/family state d (09/08/22 2:20 PM) Social History Social History Type Response Smoking Status Former smoker, quit more than 30 days ago entered on: 09/08/22 Sex Note * Event Display: [facility] Office Note Authored Date: [id number] OFFICE NOTE DATE: 09/08/2022 REFERRING PHYSICIANS: Dr. Clifford Dye and Dr. Max Weiss. REASON FOR REFERRAL: Coronary artery disease and aortic stenosis. HISTORY OF PRESENT ILLNESS: The patient is an 82-year-old female with known aortic stenosis that recently progressed into the severe category. Although she denies significant symptoms, she does admitto dyspnea on exertion, particularly when climbing stairs. Her [id number] also describes an episode of significant lightheadedness. She denies any chest pain, debora syncope, lower extremity edema, orthopnea or PND. Again, her echo shows severe aortic stenosis. A TAVR is being considered. She went for a cardiac catheterization that showed 60%-70% distal left main stenosis that was iFR positive with a value of 0.8. PAST MEDICAL HISTORY: Hypertension, hyperlipidemia, hypothyroidism. PAST SURGICAL HISTORY: None. SOCIAL HISTORY: No tobacco, alcohol or drugs. MEDICATIONS: Baby aspirin, Klonopin, Pamelor, Benicar, Bystolic, Zocor, Synthroid, cholecalciferol,vitamin B complex. ALLERGIES: No known allergies. FAMILY HISTORY: Noncontributory. REVIEW OF SYSTEMS: As per HPI; otherwise, remainder are negative. PHYSICAL EXAMINATION: GENERAL APPEARANCE: Elderly female, sitting in the chair, in no distress. VITAL SIGNS: Heart rate is 80 beats per minute, blood pressure is 114/68 mmHg, respirations 18, oxygen saturation 96%. Height is 157 cm and weight is 73 kg. HEENT: Normocephalic, atraumatic. Extraocular movements are intact. Pupils are equal, round, reactive to light. NECK: No JVD, no bruits, no cervical or supraclavicular lymphadenopathy. CARDIAC: Regular rate and rhythm. She does have a high-pitched systolic ejection murmur heard throughout the precordium, heard loudest at the right upper sternal border radiating to both carotids. LUNGS: Clear to auscultation. ABDOMEN: Soft, nontender, no organomegaly, positive bowel sounds. EXTREMITIES: No clubbing, cyanosis or edema. NEUROLOGIC: Grossly nonfocal. LABORATORY STUDIES: White count 7.1, hematocrit 37.9, platelets 224. Sodium 143, potassium 3.7, BUN9, creatinine 1.0. IMAGING: Cardiac catheterization and echo are as described. I did personally review these images. ASSESSMENT AND PLAN: This is an 82-year-old female with symptomatic severe aortic stenosis and a distal left main stenosis. I do think she would benefit from surgical aortic valve replacement and coronary artery bypass grafting x2 given the severe left main stenosis. However, she is adamantly against open heart surgery. I told her that fixing just the valve with a TAVR may not fix all her problems, she would be left with the left main stenosis as well and this is not an easy or low risk location for stenting. She understands this, but again does not want surgery. I told her we would discuss her case at one of our upcoming multidisciplinary TAVR conferences and decide how to proceed. Thank you for this referral. Dictated by: Franklin Bansal MD Signing Clinician: Franklin Bansal MD Dictated: 09/08/2022 02:38:07 Transcribed: 10:26:04 AM Transcribed by: SHAINA/BRIANNA/VANDANA DocID: [id number] PRELIMINARY REPORT UNLESS MANUALLY/ELECTRONICALLY SIGNED Cardiac surgery Outpatient Note * Renee Anderson MA: PERFORM, SIGN, VERIFY Event Display: Cardiac Surgery Note Office Authored Date: [id number] Patient: JHONNY ADAM Age: 82 years Sex: Female : 1940 Associated Diagnoses: None Author: Renee Anderson MA [place] Cardiomyopathy Questionnaire (KCCQ-12) The following questions refer to your heart failure and how it may affect your life. Please read and complete the following questions. There is no right or wrong answers. Please brandon the answer that best applies to you. 1. Heart failure affects different people in different ways. Some feel shortness of breath while others feel fatigue. Please indicate how much you are limited by heart failure (shortness of breath orfatigue) in your ability to do the following activities over the past 2 weeks. a. Showering/bathing: Extremely Limited (_) 1 Quite a bit limited (_) 2 Moderately Limited (_) 3 Slightly Limited (_) 4 Not at all Limited (XXX) 5 Limited for other reasons or did not do the activity (_) 6 b. Walking 1 block on level ground: Extremely Limited (_) 1 Quite a bit limited (XXX) 2 Moderately Limited (_) 3 Slightly Limited (_) 4 Not at all Limited (_) 5 Limited for other reasons or did not do the activity (_) 6 c. Hurrying or jogging (as if to catch a bus): Extremely Limited (XXX) 1 Quite a bit limited (_) 2 Moderately Limited (_) 3 Slightly Limited (_) 4 Not at all Limited (_) 5 Limited for other reasons or did not do the activity (_) 6 2. Over the past 2 weeks, how many times did you have swelling in your feet, ankles or legs when you woke up in the morning? Every Morning (_) 1 3 or more times per week but not every day (_) 2 1-2 times per week (_) 3 Less than once a week (_) 4 Never over the past 2 weeks (XXX) 5 3. Over the past 2 weeks, on average, how many times has fatigue limited your ability to do what you wanted? All of the time (XXX) 1 Several Times per day (_) 2 At least once a day (_) 3 3 or more times per week but not every day (_) 4 1-2 times per week (_) 5 Less than once a week (_) 6 Never over the past 2 weeks (_) 7 4. Over the past 2 weeks, on average, how many times has shortness of breath limited your ability to do what you wanted? All of the time (XXX) 1 Several Times per day (_) 2 At least once a day (_) 3 3 or more times per week but not every day (_) 4 1-2 times per week (_) 5 Less than once a week (_) 6 Never over the past 2 weeks (_) 7 5. Over the past 2 weeks, on average, how many times have you been forced to sleep sitting up in a chair or with at least 3 pillows to prop you up because of shortness of breath? Every night (_) 1 3 or more times per week but not every day (_) 2 1-2 times per week (_) 3 Less than once a week (_) 4 Never over the past 2 weeks (XXX) 5 6. Over the past 2 weeks, how much has your heart failure limited your enjoyment of life? It has extremely limited my enjoyment of life (XXX) 1 It has limited my enjoyment of life quite a bit (_) 2 It has moderately limited my enjoyment of life (_) 3 It has slightly limited my enjoyment of life (_) 4 It has not limited my enjoyment of life at all (_) 5 7. If you had to spend the rest of your life with your heart failure the way it is right now, how would you feel about this? Not at all satisfied (_) 1 Mostly dissatisfied (XXX) 2 Somewhat satisfied (_) 3 Mostly satisfied (_) 4 Completely satisfied (_) 5 8. How much does your heart failure affect your lifestyle? Please indicate how your heart failure may have limited your participation in the following activities over the past 2 weeks. a. Hobbies, recreational activities: Severely Limited (XXX) 1 Limited quite a bit (_) 2 Moderately Limited (_) 3 Slightly Limited (_) 4 Did not limit at all (_) 5 Does not apply or did not do for other reasons (_) 6 b. 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 Visiting family or friends out of your home: Severely Limited (_) 1 Limited quite a bit (_) 2 Moderately Limited (_) 3 Slightly Limited (XXX) 4 Did not limit at all (_) 5 Does not apply or did not do for other reasons (_) 6 Total Score: 30 * Renee Anderson MA: PERFORM, SIGN, VERIFY Event Display: Cardiac Surgery Note Office Authored Date: [id number] Patient: JHONNY ADAM Age: 82 years Sex: Female : 1940 Associated Diagnoses: None Author: Renee Anderson MA TAVR Program Functional Assessment Test The KCCQ12 questionnaire was documented separately from this series of tests. A walk was performed on this patient with the following results: Walk Test- Five-meter Gait Speed #1 - 7.35 sec #2 - 8.17 sec #3 - 6.03 sec Equals = 21.55 sec Average = 7.18 sec Patient Care team information Care Team Personnel Name: Kelly STOVER, Jerman De León Position: Reference Physician Member Role: PCP Address: Address: [address] [place], [place] [address] Care Team Related Persons Name: MADISYN ADAM Name: JAIR ALE Name: JOSEMERLESHAMARARTEM Address: home SAME PT
--- OUTSIDE RECORDS SUMMARY | 2023-09-17 14:06 | XMS_ITS | Continuity of Care Document ---
Author Name Unknown Organization [facility] Card[facility] Sofia marlen Address [address] [place] [id number]- Care Team Providers Care Nutritional Yeast Supervisor Name Role Phone Kelly STOVER, Jerman De León Primary Care Physic gerhard Encounter [facility] [place] Date(s): 09/08/22 - 10/08/22 [facility] Cardiac Surgery [address] [place] [address]- Attending Physician: Darrel Cardenas Admitting Physician: Darrel Cardenas Referring Physician: AdmtrDarrel Medications aspirin 81 mg oral delayed release [...] opioid drug. Start Date: 08/14/22 Status: Ordered Social History Social History Type Response Smoking Status Former smoker, quit more than 30 days ago entered on: 09/08/22 Sex Patient Care team information Care Team Personnel Name: Kelly STOVER, Jerman De León Position: Reference Physician Member Role: PCP Address: Address: [address] [place] [address]- Care Team Related Persons Name: MADISYN ADAM Name: ALE ADAM Name: ARTEM ADAM Address: home SAME PT
--- OUTSIDE RECORDS SUMMARY | 2023-09-17 14:06 | XMS_ITS | Continuity of Care Document ---
Author Name Unknown Organization [facility] ter Address [address] [place] [address]- Care Team Providers Care Elementary Principal Name Role Phone Kelly STOVER, Jerman De León Primary Care Physic gerhard Encounter [facility] [place] Date(s): 07/30/23 - 07/30/[address] [address]- Discharge Disposition: A-D/C Home Attending Physician: Leonor Wray MD Admitting Physician: Leonor Wray MD Referring Physician: Leonor Wray MD Allergies, Adverse Reactions, Alerts Substance Reaction [...] Refills, Maintenance, 07/25/23 13:54:00 EST, EC Tablet, [facility], Partial fill upon patient request if the prescription is for a schedule II opioid drug., 158.2, cm, 07/23/23 7:23:00 EST, Height... Start Date: 07/25/23 Status: Ordered atorvastatin 80 mg oral tablet = 80 mg, By Mouth, Daily at bedtime, # 90 tablet, 3 Refills, Maintenance, 07/25/23 13:36:00 EST, Tablet, [facility], Partial fill upon patient request [...] Status: Ordered metoprolol 25 mg oral tablet 25 mg, By Mouth, Daily, # 90 tablet, Refills 3, Tot. Refills 3, Maintenance, 07/25/23 16:09:00 EST,Route to Pharmacy Electronically, [facility], Partial fill upon patient request if the prescription is for a schedule II opioid drug., 15... Start Date: 07/25/23 Status: Ordered nortriptyline 50 mg oral capsule [...] 07/17/23 12:56:00 EST, Route to Pharmacy Electronically, [facility], Partial fill upon patient request [...] main coronary artery disease Confirmed Active Results Radiology Reports * Exam Date Time Procedure Performing Provider Status 07/30/23 7:58 AM IR End of Case Report Aut h (Verified) IR End of Case Report * Exam Date Time Procedure Performing Provider Status 07/30/23 7:58 AM IR Cholangiogram Auth (Ve rified) Notes: (IR Cholangiogram) Reason For Exam: Other: IR Cholangiogram Patient: JHONNY ADAM Study Date: 07/30/2023 Performing: Referring: : 1940 Age: 83 Gender: FEMALE Pre-procedure diagnosis and Indication: Cholecystitis, post cholecystectomy tube placement. PROCEDURE: A bright cutter radiograph was obtained. A transcatheter cholecystogram was performed. The catheter was maintained to gravity drainage. FINDINGS/IMPRESSION: Patent cystic and common bile ducts. Cholelithiasis, no choledocholithiasis. Cholecystostomy tube in satisfactory position. Plan: Follow up with Dr. Fajardo as scheduled to discuss [place] steps[place] [address] [place]oscopy [place] and dose Total Fluoro Time: 0.5 mins Total dose 2 mGy Total DAP 68.33 - ?Gy/m2 Contrast used Contrast used: Omnipaque_300 10 ml's Dictated By: Leonor Wray MD Dictated Date/Time: 07/30/23 7:58 am Reviewed By: Leonor Wray MD Signed By: Leonor Wray MD Signed Date/Time: 07/30/23 7:58 am Transcribed By: KAYA Transcribed Date/Time: 07/30/23 7:58 am Vital Signs Most recent to oldest [Reference Range]: 1 2 Height 158.2 cm (07/30/23 7:42 AM) 158.2 cm (07/30/23 7:36 AM) Weight 68.3 kg (07/30/23 7:36 AM) Oxygen Saturation [94-100 %] 98 % (07/30/23 7:42 AM) Pulse Rate [55-90 bpm] 93 bpm *H* (07/30/23 7:42 AM) Blood Pressure [90-138/55-84 mm Hg] 114/ 64mm Hg (07/30/23 7:42 AM) Respiratory Rate [16-30 br/min] 18 br/mi n (07/30/23 7:42 AM) Temperature [96.8-100.4 DegF] 98.0 DegF (07/30/23 7:42 AM) Mode of Delivery (Oxygen) Room air (07/30/23 7:42 AM) Temperature Route Oral (07/30/23 7:42 AM) Dry Weight 68.3 kg (07/30/23 7:36 AM) Social History Social History Type Response Smoking Status Never (less than 100 in lifetime);Former smoker, quit more than 30 days ago entered on: 06/17/23 Sex Hospital Progress note * Krissy Lackey RN: PERFORM, SIGN, VERIFY, SIGN, MODIFY Event Display: Progress Note Hospital Authored Date: [id number] Patient: JHONNY ADAM Age: 83 years Sex: Female : 1940 Associated Diagnoses: None Author: Krissy Lackey RN Findings Narrative/Incidental patient arrived to unit via w/c from [facility] for a joni tube study. A&Ox4, VSS. no IV, no emla needed. off unit to procedure via stretcher at this time. . Discharge Information Case Management Discharge Plan : Case Management Discharge Plan Data 07/25/2023 16:41 EST Discharge Level of Care at Discharge [facility] Discharge Nursing Homes/Rehab Facilities [facility] 07/25/2023 13:03 EST Discharge Level of Care at Discharge [facility] Discharge Nursing Homes/Rehab Facilities [facility] Discharge Transportation Arranged [facility] [address] [place] [address] Discharge Arranged Transport Date/Time 07/25/2023 15:30 Mode of Transportation Arranged Ambulance Service Categories #1 Occupational Therapy, Physical Therapy, Alf Service Comments #1 [facility] - you will be returning to facility today for continued rehabilitation 07/24/2023 14:35 EST Discharge Nursing Homes/Rehab Facilities [facility] Discharge : Rehab Discharge Index 07/25/2023 11:25 EST Comments on treatment indicated see comment Walker: distance < 10 Distance pt will ambulate ~50' with RW and good balance Full chart review completed Yes Plan of care PT Gait training, Transfer training, Therapeutic exercise, Functional Activities, Balance training * Krissy Lackey RN: PERFORM Event Display: Progress Note Hospital Authored Date: [id number] patient returned from procedure, A&Ox4, VSS. food and drink given. dressing is CDI to the [facility] site R abd. no c/o pain. written report from procedure given to daughter to give to the nursing staff when she returns to [facility]. call [facility] in reach and patient is able to d/c when ready.patient is in stable condition. Note * Krissy Lackey RN: PERFORM Event Display: Discharge/Transfer Note Hospital Authored Date: [id number] Nursing Discharge Note Entered On: 07/30/2023 9:15 EST Performed On: 07/30/2023 9:14 EST by Krissy Lackey RN Nursing Discharge Note 2 Discharge Time : 07/30/2023 9:14 EST Discharge Level of Care at Discharge : Home/Longterm/Foster Care Patient Left Unit Via : Wheelchair Patient Accompanied Off Unit with : Responsible adult DC Instructions Provided & Signed by Pt : Yes Patient Understands D/C Instructions : Yes Patient Instructions Discharge Signed : Yes Did Pt have Specialty Bed or Wound Vac : No Krissy Lackey RN - 07/30/2023 9:14 EST Patient Care team information Care Team Personnel Name: Howie Brown RN Position: S RN Member Role: Primary Care Nurse Name: Arianna Cali RN Position: S RN Member Role: Primary Care Nurse Name: Bhavana Camacho RN Position: S RN Member Role: Primary Care Nurse Name: Shannon Weeks RN Position: S RN Member Role: Primary Care Nurse Name: Marisabel Motley RN Position: S RN Member Role: Primary Care Nurse Name: Sherrill Hendrickson RN Position: S RN Member Role: Primary Care Nurse Name: Sharifa Schneider Position: [facility] RN Supv Member Role: Primary Care Nurse Name: Gracy Wu RN Position: [facility] RN Member Role: Primary Care Nurse Name: Alma Gray RN Position: S RN Member Role: Primary Care Nurse Name: Francine Jacobo RN Position: [facility] RN Member Role: Primary Care Nurse Name: Luana Odonnell RN Position: [facility] RN Member Role: Primary Care Nurse Name: Bebeto Gallegos RN Position: [facility] RN Member Role: Primary Care Nurse Name: Jerman Mendoza MD Position: Reference Physician Member Role: PCP Address: Address: [address] [place], [place] - Care Team Related Persons Name: MADISYN PHILLIP Address: home [address], [place] Name: ALE ADAM Address: home [address], [place] Name: ARTEM ADAM Address: home SAME PT
--- OUTSIDE RECORDS SUMMARY | 2023-09-17 14:06 | XMS_ITS | Continuity of Care Document ---
Author Name Unknown Organization [facility] ter Address [address] [place] [address]- Care Team Providers Care Director Industrial Museum Name Role Phone Beulah Parker MD Primary Care Physician Encounter [facility] Date(s): 07/02/19 - 07/09/[address] [address]- [facility] Attending Physician: Beulah Parker MD Results Microbiology Reports TEST:Urine Culture STATUS:Auth (Verified) BODY SITE: SOURCE:URINE COLLECTED DATE/TIME:07/02/19 2:50 PM Urine Culture SPECIMEN DESCRIPTION : URINE SPECIAL REQUESTS : NONE CULTURE : NO GROWTH REPORT STATUS : FINAL 07/04/2019
--- OUTSIDE RECORDS SUMMARY | 2023-09-17 14:06 | XMS_ITS | Continuity of Care Document ---
Author Name Unknown Organization [facility] ter Address [address] [place] [id number]- Care Team Providers Care Staffing Executive Name Role Phone Donnie STOVER, Darwin Dietrich Primary Care Physician [phone] Encounter [facility] Date(s): 08/14/22 - 08/14/[address] [address] Discharge Disposition: A-D/C Home Attending Physician: Clifford Dye MD Admitting Physician: Clifford Dye MD Referring Physician: Clifford Dye MD Medications aspirin 81 mg oral delayed release [...] oldest [Reference Range]: 1 2 3 Height 157.4 cm (08/14/22 7:20 AM) 157.4 cm (08/14/22 6:00 AM) Weight 72.9 kg (08/14/22 7:20 AM) 72.9 kg (08/14/22 6:00 AM) Oxygen Saturation [94-100 %] 96 % (08/14/22 1:00 PM) 96 % (08/14/22 12:45 PM) 95 % (08/14/22 12:15 PM) Pulse Rate [55-90 bpm] 88 bpm (08/14/22 6:00 AM) Body Mass Index [18.5-24.99 kg/m2] 29.43 kg/m2 *H* (08/14/22 6:00 AM) Blood Pressure [90-138/55-84 mm Hg] 123/67mm Hg (08/14/22 1:00 PM) 123/66mm Hg (08/14/22 12:45 PM) 118/62mm Hg (08/14/22 12:15 PM) Respiratory Rate [16-30 br/min] 19 br/min (08/14/22 1:00 PM) 19 br/min (08/14/22 12:45 PM) 15 br/min *L* (08/14/22 12:15 PM) Temperature [96.8-100.4 DegF] 97.7 DegF (08/14/22 6:00 AM) Mode of Delivery (Oxygen) Room air (08/14/22 1:00 PM) Room air (08/14/22 12:45 PM) Room air (08/14/22 12:15 PM) Blood pressure sites Arm, left (08/14/22 6:00 AM) Temperature Route Temporal (08/14/22 6:00 AM) Dry Weight 72.9 kg (08/14/22 7:20 AM) 72.9 kg (08/14/22 6:00 AM) Cardiac catheterization study * Event Display: Cardiac Program Planner Report Authored Date: Cardiac Diagnostic + PCI Report Demographics Patient Name JAIR BARRY Gender Female [employer] Room Number B212 Height 61.97 inches Date of 1940 Weight 160.72 pounds Age 82 year(s) BSA 1.74 m2 Accession Number [id number] BMI 29.43 kg/m2 Referring Physician Max Weiss MD Date of Study 08/14/2022 Darwin Dye MD Performing Physician Clifford Dye MD Fellow Pito North Interventional Physician Clifford Dye MD Procedure Procedure Type Diagnostic procedure:Coronary Angiography PCI procedure:FFR Miscellaneous:ACT ACC Diagnostic Catheterization Status:Elective Indications Indications: Aortic stenosis. Clinical History Admission Medications + +------+-------+ + + +---------+ !Medication !Dosage!Times !Last !Last !Administered !Comments ! ! ! !Per Day!Delivery !Delivery ! ! ! ! ! ! !Date !Time ! ! ! + +------+-------+ + + +---------+ !Aspirin (any)!81 mg ! !08/13/2022 !19:00 ! ! ! + +------+-------+ + + +---------+ !Beta Christina ! ! ! ! ! ! ! !(any) ! ! ! ! ! ! ! + +------+-------+ + + +---------+ !Statin (any) ! ! ! ! ! ! ! + +------+-------+ + + +---------+ Clinical Evaluation Leading to Procedure Diagnosed on 08/14/2022 00:00. - There were no CAD presentation symptoms. - There were no anginal symptoms. - The patient was diagnosed with a heart failure condition. Heart failure type: Diastolic. - The patient's heart failure status was assessed as NYHA Class III, with CHF symptoms of MOTA ACC Risk Factors The patient risk factors include:obesity, uncontrolled hypertension, last creatinine: 1 mg/dl and creatinine clearance: 50.78 ml/min. Additional Clinical History:This is a 82 yo female with PMH c/w HTN and severe who presents for evaluation of coronaries. On occasions she experiences lightheadedness, however, describes it is most prominent after 'bending over'. Otherwise, no significant rest or exertional angina/dyspnea. We will proceed with [facility] today. Procedure Data Procedure Date Date: 08/14/2022Start: 08:58End: 09:48 The procedure was explained in detail to the patient. Risks, complications and alternative treatments were reviewed. Written consent was obtained. Entry Locations - Retrograde Percutaneous access was performed through the Right Radial artery (Primary location). A 6 Fr sheath was inserted. Hemostasis was successfully obtained using TR Band. Closure Comments: 14 cc's of air . Procedure Medications - Oxygen NC 2 l/min. - Versed (Midazolam) I.V. 0.5 mg. - Fentanyl I.V. 25 mcg. - Versed (Midazolam) I.V. 0.5 mg. - Fentanyl I.V. 25 mcg. - Lidocaine 2% S.C. Right Wrist 3 ml. - Versed (Midazolam) I.V. 0.5 mg. - Fentanyl I.V. 25 mcg. - Heparin I.V. 3000 units. - Versed (Midazolam) I.V. 0.5 mg. - Fentanyl I.V. 25 mcg. - Heparin I.V. 4000 units. Sedation: My intra-service moderate sedation time was: from 857 to 947. Refer to procedural log for detailed chronological information. Contrast Material - Omnipaque 50 ml Diagnostic Catheters - ADIAGNOSTIC CATH 5F JR4.0 100cm PERFORMAwas used for: Right coronary angiography. - A5F JL 3.5 DXTERITY DIAGNOSTIC CATHETERwas used for: Left coronary angiography. Fluoroscopy Time: Diagnostic: 4:24 minutes. Total: 4:24 minutes. Fluoroscopy Dose: Diagnostic: 483 mGy. Total: 483 mGy. Dose Area Product:Diagnostic: 82492 mGy/cm2. Total: 70302 mGy/cm2. Dose Area Product:Diagnostic: 2554.5 ??Gy/m2. Total: 2554.5 ??Gy/m2. Angiographic Findings Cardiac Arteries and Lesion Findings LMCA: Lesion in LMCA: Distal subsection.60% stenosis 5 mm length. Pre procedure DYLAN III flow was noted. The lesion was diagnosed as High Risk (C). Bifurcation lesion. iFR +---+-----+ !iFR!Stage! +---+-----+ !0.8! ! +---+-----+ LAD: Mild luminal irregularities (<30%). LCx: Mild luminal irregularities (<30%). RCA: Lesion in Mid RCA: Proximal subsection.30% stenosis . Pre procedure DYLAN III flow was noted. Hemodynamics Condition: Rest O2 Consumption: Estimated: 165.02Heart Rate: 84 bpm Pressures (mmHg) +-----+ + !Site !Pressure ! +-----+ + !AO !152/85 (112)! +-----+ + Shunts Oxygen Values O2 Capacity 171.36 O2 Consumption 165.02 Interventional Procedure Cardiac lesions LMCA: Lesion in LMCA: Distal subsection.60% stenosis 5 mm length reduced to 60%. Pre procedure DYLAN III flow was noted. Post Procedure DYLAN III flow was present. The lesion was diagnosed as High Risk (C). The guidewire cross was successful.Bifurcation lesion. Devices used - 185cm STR OMNIWIRE PRESSURE GUIDEWIRE. Number of passes: 1. 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 He does appear by angiographic criteria to be severe however we would like to assess the degree of ischemia as the patient either has no symptoms or is minimizing symptoms Interventional Summary iFR of the distal left main is positive/ischemic Right radial artery hemostatic with a compressive device Interventional Recommendations 1. Given findings of severe aortic stenosis and distal left main bifurcation stenosis which is severe by angiographic criteria and ischemic by IFR, recommend consideration for elective SAVR and CABG. Initial impression is that the patient is at acceptable operative risk. If the patient is deemed not to be an operative candidate then would need to carefully consider options for management of the aortic stenosis and coronary artery disease 2. As a next step we will obtain consultation with cardiothoracic surgery, a full transthoracic echocardiogram and a TAVR CTA in case the patient undergoes TAVR ACC Diagnostic Recommendations: Other cardiac therapy without CABG or PCI. Complications:None. Signatures * Event Display: Cardiac Program Planner Report Authored Date: EKG study * Event Display: ECG 12-Lead Authored Date: Please click on pdf link to open report * Event Display: ECG 12-Lead Authored Date: Ventricular Rate: 73 BPM Atrial Rate: 73 BPM P-R Interval: 168 ms QRS Duration: 90 ms Q-T Interval: 414 ms QTC Calculation(Bazett): 456 ms P Sodus: 38 degrees R Sodus: 19 degrees T Sodus: 9 degrees Normal sinus rhythm Normal ECG When compared with ECG of 14-AUG-2022 06:47, No significant change was found Confirmed by BRUCE NICHOLE ([id number]) on 08/14/2022 12:56:03 PM [place]: BRUCE NICHOLE * Event Display: ECG 12-Lead Authored Date: Please click on pdf link to open report * Event Display: ECG 12-Lead Authored Date: Ventricular Rate: 88 BPM Atrial Rate: 88 BPM P-R Interval: 178 ms QRS Duration: 90 ms Q-T Interval: 372 ms QTC Calculation(Bazett): 450 ms P Sodus: 49 degrees R Sodus: 22 degrees T Sodus: 29 degrees Normal sinus rhythm Normal ECG No previous ECGs available Confirmed by ALBERTO CASTRO MD ([id number]) on 08/14/2022 8:14:03 AM [place]: ALBERTO CASTRO MD Deprecated Cardiac rehabilitation treatment plan Progress note and attainment of goals (narrative) * Arcadio Duarte: PERFORM, SIGN, VERIFY Event Display: Cardiac Rehab Note Authored Date: Patient: JHONNY ADAM Age: 82 years Sex: Female : 1940 Associated Diagnoses: None Author: Arcadio Duarte Diagnosis Cardiac Rehab Diagnosis: Pt will need a Surgical consult and or TAVR W/U , will sign off and F/U Post OP.. Note * Carrie Montano RN: PERFORM Event Display: Discharge/Transfer Note Hospital Authored Date: Nursing Discharge Note Entered On: 08/14/2022 13:44 EST Performed On: 08/14/2022 13:15 EST by Carrie Montano RN Nursing Discharge Note 2 Discharge Time : 08/14/2022 13:15 EST Discharge Level of Care at Discharge : Home/[facility] Care Patient Left Unit Via : Wheelchair Patient Accompanied Off Unit with : Responsible adult DC Instructions Provided & Signed by Pt : Yes Patient Understands D/C Instructions : Yes Verbalized Understanding of D/C Plan By : Family, Patient Patient Instructions Discharge Signed : Yes Did Pt have Specialty Bed or Wound Vac : No Carrie Montano RN - 08/14/2022 13:43 EST * Carrie Montano RN: PERFORM, MODIFY Event Display: Patient Education/Instruction Authored Date: [id number] Inpatient Adult Discharge Instructions [address] [address] Name: JHONNY ADAM : 1940 Visit: 08/14/2022 06:22:00 Current Date: 08/14/2022 12:17 Account: [id number] Inpatient Adult Discharge Instructions We would like [...] and their families. Surveys are administered by [employer] ?? If further treatment with your primary care physician or another doctor is recommended, it is important for you to keep the appointment. Call your primary care physician or return to the Emergency Department immediately if your condition worsens, fails to improve, or new symptoms develop. If you need to find a doctor, you can call [facility] [employer] [facility] for a referral at [phone] or toll free at [phone] or log in to [email or web address].. ?? You can view and manage your care through the patient portal or by using a health care edita of your choosing. [employer] is a website that allows you to securely view your medical information including your hospital discharge summary, office visit summaries, medications and follow-up visits. You can also request appointments, renew medications, and request access to your medical information using a health care edita of your choosing, or just ask a question. You can enroll at [email or web address] or register during your next office visit. You have been discharged from [facility], Patient Care Unit: CARE. If you have any questions regarding these instructions after you leave, please call us and we will be happy to assist you. [facility] Your Care Team Attending Physician Marnie STOVER, Clifford Watkins Discharging Providers Pito North MD Reason for Admission NONRH AOT LENNY STEN [facility] HV2 ARR 630AM Tests Performed Below is a partial list of the tests performed during your hospitalization. You may have had other tests and procedures not included in this list. Please discuss all test results with your provider. CBC Creatinine Lytes Type and Screen Primary Care Provider Darwin Fields MD Advance Directive Health Care Proxy on File No Discharge Vitals Temperature: 97.7 DegF Height: 157.4 cm Pulse Rate: 88 bpm Weight: 72.9 kg Respiratory Rate: 17 br/min Body Mass Index:??29.43 kg/m2??High Systolic Blood Pressure: 125 mm Hg Body surface area: 1.79 Diastolic Blood Pressure: 61 mm Hg ?? Oxygen Saturation: 95 % ?? Studies Pending All tests and labs ordered during this hospital stay have been completed unless listed below. Please discuss all pending results with your provider listed above in these instructions. ?? No incomplete studies found What to do next Instructions From Your Doctor Discharge Orders You Need to Schedule the Following Appointments Follow Up with??[facility] Cardiac Surgery When?? Why: This office will be calling you to set up a consult appointment Where: ?? Follow Up with??Isela STOVER, Max Mendez When??Within 1 week: call to discuss follow up visit Where: [address] [place] [address] [address] [facility] [place] [address]- Discharge Medications JHONNY ADAM :1940 Visit Date:08/14/2022 Medications: Please continue your medications until treatment is completed or stopped by your provider. Medications not listed below should be discontinued. Discuss any questions related to medications with your provider. What How Much When Instructions Next Dose Unchanged Aspirin (aspirin 81 mg oral delayed release tablet) 1 tab(s) Oral Daily as prescribed Unchanged Cholecalciferol (cholecalciferol 1000 intl units oral tablet) 1 tab(s) Oral Daily as prescribed Unchanged Clonazepam (clonazePAM 0.5 mg oral tablet) 1 tab(s) Oral Twice a day as prescribed Unchanged hydrochlorothiazide-olmesartan (Benicar HCT 12.5 mg-40 mg oral tablet) 1 tab(s) Oral Daily as prescribed Unchanged Levothyroxine (levothyroxine 75 mcg (0.075 mg) oral tablet) 1 tab(s) Oral Daily as prescribed Unchanged Multivitamin (Super B Complex Vitamin B Complex oral tablet) 1 tab(s) Oral Daily as prescribed Unchanged Nebivolol (nebivolol 10 mg oral tablet) 1 tab(s) Oral Daily as prescribed Unchanged Nortriptyline (nortriptyline 50 mg oral capsule) 1 capsule Oral Daily as prescribed Unchanged Simvastatin (simvastatin 40 mg oral tablet) 1 tab(s) Oral Daily at Bedtime as prescribed Test Results Below is a partial list of the most recent Laboratory test results done prior to this discharge. You may have had other tests and procedures not included in this list. Please discuss all test resultswith your provider. CBC (08/14/2022) ???WBC - 7.1 k/mm3???RBC - 4.27 m/mm3???Hgb - 12.6 Gm/dL???Hct - 37.9 %???MCV - 88.8 femtoliters???MCH - 29.5 pg???MCHC - 33.2 g/dL???Platelet Count - 224 k/mm3???RDW-SD - 40.5 femtoliters???MPV - 9.6 femtoliters???Nucleated RBC (Automated) - 0.0 #/100 WBC'S???Abs. NRBC - 0.0 k/mm3 Creatinine (08/14/2022) ???Creatinine-Blood - 1.0 mg/dL???Estimated GFR Creatinine - 57 ML/MIN/1.73 M2 Lytes (08/14/2022) ???Sodium - 143 mmol/L???Potassium - 3.7 mmol/L???Chloride - 106 mmol/L???Bicarbonate Level - 28 mmol/L???Anion Gap - 9 Type and Screen (08/14/2022) ???Blood Type - O Positive???Antibody Screen - Negative Allergies (NKA means No Known Allergies) No active allergies Problems No qualifying data available Education Materials Below is the list of Educational Leaflet Providered with your Discharge Instructions. Surgery Radial Cath Approach Discharge Instructions?? Procedural Sedation?? Discharge Instructions for Cardiac Catheterization?? Valuables and Belongings I fully understand and agree that [facility] accepts no responsibility for all my personal [...] to send valuables and belongings home. ?? Date for Pt to Sign Valuables/Belongings: 08/14/22 07:37:00 ?? Other Discharge Information ? Pulmonary Rehab Status?? Pulmonary Rehab Discharge Status?? Respiratory Rate: 17 br/min ? Common Emergency Awareness Tips IS [...] are strongly encouraged to quit. Please call [facility] [employer] Link at [phone] or [phone]) or log in to [email or web address] for referrals to smoking cessation programs. ?? The National Suicide Prevention Hotline is available 08/01 if you or someone you know needs to find a reason to keep living. By calling 0-040-041-baqt (8599) you'll be connected to a skilled, trained counselor at a crisis center in your area. INPATIENT DISCHARGE INSTRUCTIONS SIGNATURE PAGE JHONNY ADAM Location:[facility] Registration Date and Time:08/14/2022 06:22 [facility] Primary Care Physician: Darwin Fields MD, I JHONNY ADAM, have received the above patient education materials/instructions and have verbalized understanding. If ambulance or transport services are being used I further acknowledge being given a choice of service. ?? If you need to contact me, please call me at this number: . Patient/Dumper Name: Patient/Dumper Signature: Relationship to Patient: Witness Name/Signature: Date: * Carrie Montano RN: PERFORM Event Display: Patient Education Leaflets Authored Date: [id number] Surgery Radial Cath Approach Discharge Instructions ?? 278 Radial Cath Approach Discharge Instructions ?? Activity Take it easy the rest of the day. Limit your activity on the affected side.?? Act as if your arm is broken for 24 hours. No lifting with affected arm for 24 hours. No pushing or pulling with the affected arm. Do not reach or lift with the affected arm. Do not place excessive pressure on the wrist. ?? Precautions Due to intravenous sedation: It is recommended that someone stay with you for the first night after your procedure. Do not drive or operate hazardous machinery for 24 hours. Do not make legal decisions for 24 hours. Avoid alcohol for 24 hours. Unless directed otherwise, keep yourself hydrated. ?? Dressing/Incision Care You may remove the dressing 24 hours after your procedure. Replace with band aid for an additional 24 hours. You may shower and cleanse the site with soap &&water then pat dry. Avoid submersion of site in water x 5 days. Cover the with a clean band aid daily until site is healed. If the band aid becomes soiled, replacewith a clean new one. Do not apply any ointments, lotions, gels or powders to the puncture site. ?? When to contact your doctor If any of the following signs of infection occur: Fever greater than 100 degrees F Increased pain Drainage, redness or warmth at puncture site Tingling of the fingers and hand that last longer than 3 days Slight bubble of blood or bleeding from site: apply manual pressure and notify your doctor ?? Emergency situations: Bleeding from the site that will not stop: apply manual pressure and notify your doctor Profuse bleeding streaming from the puncture site: Apply manual pressure and notify your doctor immediately If your hand becomes bluish, cold to the touch, or painful, notify your doctor immediately or go toEmergency Department. For these emergent situations: If unable to contact your physician, call 911. ?? * Carrie Montano RN: PERFORM Event Display: Patient Education Leaflets Authored Date: [id number] Procedural Sedation ?? [address] Procedural Sedation Procedural sedation is medicine to ease discomfort, pain, and anxiety during a procedure. The medicine is often given through an IV (intravenous) line in your arm or hand. In some cases, the medicinemay be taken by mouth or inhaled. While you are under sedation, you will likely be awake. But you may not remember anything afterward. Why procedural sedation is used Sedation is used for many types of procedures. The goal is to reduce pain, anxiety, and stressful memories of a procedure. It can help your healthcare provider treat you. For example, having a brokenbone fixed may be easier if you feel relaxed. This type of sedation is used only for short, basic procedures. It's not used for complex surgery. Some procedures that use this type of sedation include: ??? Dental surgery ??? Breast biopsy, to take a sample of breast tissue ??? Endoscopy, to look at gastrointestinal problems ??? Bronchoscopy, tocheck for lung problems ??? Bone or joint realignment, to fix a broken bone or dislocated joint ???Minor foot or skin surgery ??? Electrical cardioversion, to restore a normal heart rhythm ??? Lumbar puncture, to assess neurological disease ?? Risks of procedural sedation Risks and possible side effects include: ??? Headache ??? Nausea and vomiting ??? Unpleasant memory of the procedure ??? Lowered rate of breathing ??? Changes in heart rate and blood pressure (rare) ??? Inhalation of stomach contents into your lungs (rare) Side effects will likely go away shortly after the procedure. Your healthcare team will watch your heart rate and breathing during and after your sedation. This is to help prevent problems. Your own risks may vary. They can be based on your age and your overall health. They also depend onthe type of sedation you are given. Talk with your healthcare provider about the risks that apply most to you. ?? Getting ready for procedural sedation Talk with your healthcare provider about how to get ready for your procedure. Tell them about all the medicines you take. This includes [id number] medicines, such as ibuprofen. It also includesvitamins, herbs, and other supplements. You may need to stop taking some medicines before the procedure, such as blood thinners and aspirin. If you smoke, you should stop. This is to lessen the chance of a lung problem. Talk with your healthcare provider if you need help to stop smoking. Tell your healthcare provider if you: ??? Have had any problems in the past with sedation or anesthesia ??? Have had any recent changes in your health, such as an infection or fever ??? Are or think you could be Also: ??? Ask a family member or friend to take you home after the procedure. You can???t drive on the day you have sedation. ??? Follow any directions you are given for not eating or drinking beforeprocedure. ??? Don't make any important decisions, such as financial or legal, on the day after youhave sedation. ??? Follow all other instructions from your healthcare provider. ?? During your procedural sedation You may have your procedure in a hospital or a medical clinic. Sedation is done by a trained healthcare provider. In general, you can expect the following: ??? You will be given medicine through an IV line in your arm or hand. Or you may receive a shot. The medicine may also be given by mouth. Or you may inhale it through a mask. ??? If you have medicine through an IV, you may feel the effects very quickly. You will start to feel relaxed and drowsy. ??? During the procedure, your heart rate, breathing, and blood pressure will be closely watched. Your breathing and blood pressure may decrease a little. But you will likely not need help with your breathing. You may receive a little extra oxygen. This is done through a mask or some soft plastic prongs under your nose. ??? You will probably be awake the entire time. If you do fall asleep, you should be easy to wake up, if needed. You shouldfeel little or no pain. ??? When your procedure is over, the sedative medicine will be stopped. ?? After your procedural sedation You will begin to feel more awake and aware. But you will likely be drowsy for a while afterward. You will be closely watched as you become more alert. You may have a faint memory of the procedure. Or you may not remember it at all. You should be able to return home within 1 to 2 hours after your procedure. Plan to have someone stay with you for a few hours. Side effects, such as headache and nausea, may go away quickly. Tell your healthcare provider if they continue. Don???t drive or make any important decisions for at least 24 hours. Be sure to follow all after-care directions. ?? When to call your healthcare provider Have someone call your healthcare provider right away if any of the following occur: ??? Drowsinessthat gets worse ??? Weakness or dizziness that gets worse ??? Repeated vomiting ??? Severe or ongoing pain from the procedure, not relieved by the pain medicine ??? Fever of 100.4?? F (38??C) or higher, or as directed by your healthcare provider ??? New rash ?? Call 911 Have someone call 911 if any of the following occur: ??? Shortness of breath ??? Chest pain ??? Loss of consciousness or you can't be awakened ?? Last Reviewed Date: 2021 ?? [employer]. All rights reserved. This information is not intended as a substitute for professional medical care. Always follow your healthcare professional's instructions. ?? * Carrie Montano RN: PERFORM Event Display: Patient Education Leaflets Authored Date: [id number] Discharge Instructions for Cardiac Catheterization ?? [address] Discharge Instructions for Cardiac Catheterization Cardiac catheterization??is an invasive??procedure??to look for certain heart problems. These problems may affect the heart's chambers, valves, and blood vessels. A thin, flexible tube (catheter) is put in a blood vessel in your groin or arm. The catheter is moved to the heart. The healthcare provider can look at the blood flow, blood pressure, and oxygen. They can inject contrast fluid??into your blood. This flows to your heart.??The provider can then take X-rays pictures?? of your heart. Coronary angiography is often done as part of a cardiac cath. This looks for blocked areas in the arteries that send blood to the heart. If a blockage is found, your provider may try to open up the artery. They may put a stent in place. Your provider will talk with you about the results of your procedure . Ask any questions you have before you leave. This sheet will help you take care of yourselfat home. Home care ??? Have a responsible adult drive you home after your procedure. ??? Don't drive or makeany important decisions for at least 24 hours after getting any type of sedation or anesthesia.? Drink?? 6 to 8??glasses of water over the next 24 hours. This is to help flush the contrast dye out of your body. Call your healthcare team if your urine has any change in color. ??? Take your tempe rature each day for 3 to 5 days. If you feel cold and clammy or start sweating, take your temperature right away. Call your healthcare team. ??? Do only light and easy activities for??the next?? 2 to3??days. Ask for help with chores and errands while you recover. Have someone drive you to your appointments. ??? Don't lift anything heavy??until your healthcare team says it's safe. ??? Ask your healthcare team when you can expect to return to work. Unless your job involves lifting, you may be able to return to your normal activities within 2 days. ??? Take your medicines as directed. Don't skip doses. ??? Check your incisions every day for signs of infection. These include redness, swelling,and fluid leaking. It's normal to have a small bruise or bump where the catheter was put in. A bruise that's getting larger is not normal. Tell your healthcare team about this. Call your healthcare team if you see blood forming in the incision. Go to the emergency room if you have uncontrolled bleeding from the artery site. This is even more important if you take medicines that make it hard for your blood to clot. These include aspirin, clopidogrel, warfarin, apixaban, and rivaroxaban. ??? Eat a healthy diet. Make sure it's low in fat, salt, and cholesterol. Ask your healthcare team for diet information. ??? Stop smoking. Sign up for a quit-smoking program. Or ask your healthcare team for help. ??? Exercise as your healthcare team tells you to. Your healthcare team??may advise you to start a cardiac rehab program. Cardiac rehab is an exercise program where trained healthcare staff watchyour progress and stress on your heart while you exercise. Ask your team how to enroll. ??? Don't swim or take baths until your healthcare team says it???s OK. You can shower the day after the procedure. Keep the site clean and dry. This keeps the incision from getting wet and infected until the skin and artery can heal. ??? Follow all other after-care instructions from your team.? Follow-up care ??? Make a follow-up appointment as advised. It's common to have a follow-up appointment 2 to 4 weeks after an angioplasty or coronary stent procedure. ??? Make a yearly appointment. This is??to make sure you're still doing well and not having any new symptoms. ??? Don't wait for a follow-up appointment if your medicines aren't working or you're having heart-related symptoms. Call your healthcare provider. ?? When to get medical care Call your healthcare provider right away if you have any of these: ??? Severe or increasing pain, numbness, coldness, or a bluish color in the leg or arm that held the catheter ??? Fever of 100.4?? F??( 38??C) or higher, or as advised by your healthcare provider ??? Signs of infection at the incision site. These include redness, swelling, drainage, or warmth. ??? Bleeding, bruising, or a lot of??swelling where the catheter was inserted ??? Blood in your urine ??? Black or tarry stools ??? Any unusual bleeding ??? Irregular, very slow, or fast heartbeat ??? Dizziness ?? Call 911 Call 911 if you have any of these: ??? Chest pain ??? Shortness of breath ??? Sudden numbness or weakness in arms, legs, or face, or trouble speaking ??? The puncture site swells up very fast ??? Bleeding from the puncture site that doesn't slow down with firm pressure ?? Last Reviewed Date: 2021 ?? [id number] [employer]. All rights reserved. This information is not intended as a substitute for professional medical care. Always follow your healthcare professional's instructions. ?? * Event Display: Non- Inpatient Medical Record Scanned Authored Date: * Event Display: Non Inpatient Medical Records Authored Date: Patient Care team information Care Team Personnel Name: Darwin Fields MD Position: Reference Physician Member Role: PCP Address: Address: [address] [place] [id number]- Care Team Related Persons Name: ANTONIETTA ADAM Address: [address] [address] Name: ARTEM ADAM Address: home SAME PT
--- OUTSIDE RECORDS SUMMARY | 2023-09-17 14:06 | XMS_ITS | Continuity of Care Document ---
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 Start Date: 07/17/23 Stop Date: [...] 07/17/23 12:56:00 EST, Route to Pharmacy Electronically, [facility], Partial fill upon patient [...] 07/24/23 12:54:00 EST, 07/17/23 12:54:00 EST, Capsule, [facility], Partial fill upon patient [...] Team Personnel Name: Howie Brown RN Position: [facility] RN Member Role: Primary Care Nurse Name: Arianna Cali RN Position: [facility] RN Member Role: Primary Care Nurse Name: Bhavana Camacho RN Position: [facility] RN Member Role: Primary Care Nurse Name: Shannon Weeks RN Position: S RN Member Role: Primary Care Nurse Name: Lucian Canela MD Position: [facility] Outreach Member Role: PCP Address: Address: [address] [place] [address] [address] [place], [place] [address] Name: Gracy Wu RN Position: [facility] RN Member Role: Primary Care Nurse Name: Alma Gray RN Position: [facility] RN Member Role: Primary Care Nurse Name: Luana Odonnell RN Position: [facility] RN Member Role: Primary Care Nurse Name: Bebeto Gallegos RN Position: [facility] RN Member Role: Primary Care Nurse Care Team Related Persons Name: MADISYN PHILLIP Address: home [address] [place] [address] Name: ALE ADAM Address: home [address] [place] [address] Name: ARTEM ADAM Address: home SAME PT
--- OUTSIDE RECORDS SUMMARY | 2023-09-17 14:06 | XMS_ITS | Continuity of Care Document ---
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 Name Role Phone Kelly STOVER, Jerman De León Primary Care Physic gerhard Encounter [facility] Date(s): 07/10/23 - 07/17/[address] [id number]- Discharge Disposition: A-Transfer VNA/Home Health Attending Physician: Flakito Romero MD Admitting Physician: Philippe Espinoza DO Referring Physician: Not on Staff, Referring MD Allergies, Adverse Reactions, Alerts Substance Reaction Severity Status penicillin 1 Active 1doesn't remember reaction Immunizations Given and Recorded Vaccine Date Status Refusal Reason SARS-CoV-2 (COVID-19) mRNA BNT-162b2 vac 05/01/21 Recorded SARS-CoV-2 (COVID-19) mRNA BNT-162b2 vac 08/31/20 Recorded SARS-CoV-2 (COVID-19) mRNA BNT-162b2 vac 08/08/20 Recorded Medications acetaminophen 325 mg oral tablet 975 mg, Tablet, By Mouth, Every 6 hours, PRN for Pain , Mild, Routine, 07/10/23 5:09:00 EST Start Date: 07/10/23 Stop Date: 07/18/23 Status: Discontinued aspirin 81 mg oral delayed release tablet [...] Coreg 25 mg oral tablet 12.5 mg, Tablet, By Mouth, 07/16/23 21:00:00 EST Start Date: 07/16/23 Stop Date: 07/16/23 Status: Completed Coreg 25 mg oral tablet 12.5 mg, Tablet, By Mouth, 07/17/23 9:00:00 EST Start Date: 07/17/23 Stop Date: 07/17/23 Status: Completed Docusate Sodium Capsule 100 mg, [...] 74 tablet, 0 Refills,Maintenance, 07/17/23 12:55:00 EST, [facility]... Start Date: 07/17/23 Stop Date: [...] 07/17/23 12:54:00 EST, Route to Pharmacy Electronically, [facility], Partial fill upon patient request... Start Date: 07/17/23 Stop Date: 07/21/23 Status: Ordered oxyCODONE 5 mg oral tablet 2.5 mg, Tablet, By Mouth, Every 6 hours, PRN for Pain , Moderate, Routine, 07/10/23 14:50:00 EST Start Date: 07/10/23 Stop Date: 07/18/23 Status: Discontinued simethicone 80 mg oral tablet, chewable 80 mg, 1, tablet, Chew, 3 times a day, PRN, for 14 days, # 36 tablet, Refills 0, Tot. Refills 0, Acute 07/31/23 12:56:00 EST, Gas, 07/17/23 12:56:00 EST, Route to Pharmacy Electronically, [facility], Partial fill upon patient request if... [...] 07/24/23 12:54:00 EST, 07/17/23 12:54:00 EST, Capsule, [facility], Partial fill upon patient request if the prescription is for a schedule II opioid... Start Date: 07/17/23 Stop Date: 07/24/23 Status: Ordered Problem List Condition Confirmation Course Effective Dates Status H ealth Status Informant Anxiety Confirmed Active HTN (hypertension) Confirmed Active Hypothyroidism Confirmed Active Left main coronary artery disease Confirmed Active Procedures Procedure Date Related Diagnosis Body Site Status Endoscopic retrograde cholangiopancreatography (ERCP); with removal of calculi/debris from biliary/pancreatic duct(s) 07/12/23 Compl eted Results Radiology Reports * Exam Date Time Procedure Performing Provider Status 07/17/23 11:20 AM US Doppler Ext Lower Venous Right Greer Tolbert; Auth (Verified) Notes: (US Doppler Ext Lower Venous Right) Reason For Exam: Pain/Tenderness Extremities RESULT: US Doppler Ext Lower Venous Right US Doppler Ext Lower Venous Right Reason: Pain Tenderness Extremities; Clinical Question(s): Thrombus COMPARISON: None IMAGING TECHNIQUE: Ultrasound of the veins from the groin through the calf was performed using grayscale, color, and spectral Doppler ultrasound assessing for complete compressibility and normal flowcharacteristics. FINDINGS: Common femoral vein: Patent. No thrombosis. Femoral vein: Patent. No thrombosis. Popliteal vein: Patent. No thrombosis. Gastrocnemius veins: The visualized portions are patent without evidence of thrombosis. Peroneal veins: Patent without evidence of thrombosis at the tibioperoneal trunk. Limited visualization in the calf. Posterior tibial veins: Occlusive thrombus of both of the paired posterior tibial veins in the calfmeasuring greater than 5 cm in length. Contralateral common femoral vein: Patent. No thrombosis. OTHER FINDINGS: There is an anechoic fluid collection within the right popliteal fossa measuring 4.3 x 1.1 x 1.6 cm. A hypoechoic fluid collection is visualized in the medial calf measuring 6.4 x 0.7x 0.4 cm. It is unclear whether these two fluid collections communicate. IMPRESSION: Occlusive thrombus of both of the paired posterior tibial veins measuring greater than 5 cm in length. Fluid collections within the right popliteal fossa measuring up to 4.3 cm and the medial right calfmeasuring up to 6.4 cm. Findings may represent a ruptured Diaz's cyst, although communication between these two collections cannot be definitively proven on the current study. Doppler findings were communicated via [employer] by Berenice Wilson to Gillian GIANG on 07/17/2023 at 11:46 AM with understanding acknowledged. WSN: [id number] Ordering Physician: Gillian Carrillo Dictated By: Radha Robertson MD Dictated Date/Time: 07/17/23 11:52 a Reviewed By: Radha Robertson MD Signed By: Radha Robertson MD Signed Date/Time: 07/17/23 11:52 am Transcribed By: BRANDIN Transcribed Date/Time: 07/17/23 11:48 am * Exam Date Time Procedure Performing Provider Status 07/16/23 8:[address] Abd/Pelvis W/ IV Contrast Only Jp Marie (Verified) Notes: (CT Abd/Pelvis W/ IV Contrast Only) Reason For Exam: Pain RESULT: CT Abd/Pelvis W/ IV Contrast Only CT Abd/Pelvis W/ IV Contrast Only INDICATION: Worsening abdominal pain. Recently admitted for choledocholithiasis and pancreatitis. TECHNIQUE: Spiral CT through the abdomen and pelvis with IV contrast formatted in 3 planes. 100 cc of Omnipaque 300 was administered intravenously. This study was performed without oral contrast. Weight-based protocol using automatic tube modulation was used to optimize exposure parameters. CTDIvol Body: 10.70 mGy, DLP Body: 551 mGy*cm. COMPARISON: 07/10/2023. Correlation made with MRI abdomen 07/11/2013. FINDINGS: Sales Ambassador View Findings, Lines and Tubes: Cholecystostomy tube in place. Visualized Chest: Partially visualized small bilateral pleural effusions with associated atelectasis. The heart is normal in size. No pericardial effusion. Diaphragm: Normal. Liver: Normal. Gallbladder: Transhepatic cholecystostomy tube in place. Is underdistended. Trace pericholecystic stranding. Bile ducts: Common bile duct measures approximately 0.6 cm in diameter, decreased from prior were measured at 0.9 cm. The previously seen filling defect in the distal common bile duct is no longer visualized on today's imaging, status post ERCP on 07/12/2023. Spleen: Normal size. Subcentimeter hypodensities in the spleen, unchanged. Pancreas: Diffuse fat stranding and inflammatory changes surrounding the pancreas, increased from prior. No abscess or drainable fluid collection. Adrenal glands: Normal. Kidneys and ureters: No hydronephrosis, stones, or suspicious masses. Simple appearing renal cysts and hypodensities that are too small to characterize are noted, requiring no dedicated follow up. Unchanged 1 cm partially calcified left renal cyst (601:42). Bladder: Normal. Reproductive organs: Endometrium is thickened up to 1.1 cm, similar to prior. Stomach, small bowel, and large bowel: Stomach is normal. Mild duodenal wall thickening, similar toprior and likely reactive. Colonic diverticulosis with no evidence of acute diverticulitis, similarin appearance to prior. Appendix: No evidence of acute appendicitis. Peritoneum and retroperitoneum: No ascites or pneumoperitoneum. No omental or mesenteric lesions. Lymph nodes: No enlarged lymph nodes. Blood vessels: Moderate atherosclerotic vascular calcification. No aortic aneurysm. No evidence of venous thrombosis. Abdominal and pelvic wall: Small fat-containing umbilical hernia. Irregular soft tissue densities in the lower right abdominal wall, similar prior and may represent subcutaneous injection site. Bones: Mild degenerative changes of the spine, greatest at L3-L4. IMPRESSION: Compared to 07/10/2023: Increased diffuse fat stranding and inflammatory changes surrounding the pancreas, concerning for worsening pancreatitis. No loculated fluid collection. Decrease in common bile duct diameter status post ERCP with stone removal. Persistent mild thickening of the duodenum, likely reactive from the adjacent pancreatitis. Cholecystostomy tube in place with decompressed gallbladder and trace pericholecystic stranding. Unchanged endometrial thickening measuring 1.1 cm. Nonemergent follow-up with pelvic ultrasound still suggested. Partially visualized increased small bilateral pleural effusions with associated atelectasis. I have personally reviewed the images and I agree with this report. WSN: [id number] Ordering Physician: Gillian Carrillo Dictated By: Dandy Jacobs MD Dictated Date/Time: 07/16/23 9:27 am Reviewed By: Arcadio Grande MD Signed By: Arcadio Grande MD Signed Date/Time: 07/16/23 9:32 am Transcribed By: BRANDIN Transcribed Date/Time: 07/16/23 9:17 am * Exam Date Time Procedure Performing Provider Status 07/12/23 5:13 PM ERCP Biliary Only Inocencio Shah; Sahil odified Notes: (ERCP Biliary Only) Reason For Exam: CHOLEDOCHOLITHIASIS GALLSTONES PANCREATITIS ERCP RESULT: ERCP Biliary Only ERCP Biliary Only INDICATION: Reason: CHOLEDOCHOLITHIASIS GALLSTONES PANCREATITIS ERCP COMPARISONS: None TECHNIQUE: Fluoroscopy support was provided. There was no radiologist in attendance. FLUOROSCOPY TIME: 1 minute 21.8 seconds EXPOSURE: 9.0369 Gycm2 (Dose Area Product) TECHNOLOGIST TIME: 40 minutes FINDINGS: 8 images were submitted. Please refer to operative note for full details. IMPRESSION: See above. WSN: [id number] Ordering Physician: Pako Castañeda Dictated By: Arcadio Lamar MD Dictated Date/Time: 07/13/23 10:23 a Reviewed By: Arcadio Lamar MD Signed By: Arcadio Lamar MD Signed Date/Time: 07/13/23 10:23 am Transcribed By: BRANDIN Transcribed Date/Time: 07/13/23 10:23 am * Exam Date Time Procedure Performing Provider Status 07/11/23 5:50 PM MRI Abdomen W/O Contrast Christian Ahmadi; Modified Notes: (MRI Abdomen W/O Contrast) Reason For Exam: gallstone pancreatitis;Other: ADDENDUM: MRI Abdomen W/O Contrast 3-D rotating maximum intensity projection MRCP images of the biliary tree were generated on the same workstation with concurrent physician supervision. WSN: [id number] Ordering Physician: Gillian Carrillo Dictated By: Inocencio Shell MD Dictated Date/Time: 07/12/23 8:15 am Reviewed By: Inocencio Shell MD Signed By: Inocencio Shell MD Signed Date/Time: 07/12/23 8:15 am Transcribed By: BRANDIN Transcribed Date/Time: 07/12/23 8:15 am RESULT: MRI Abdomen W/O Contrast MRI Abdomen W/O Contrast CLINICAL INDICATION: Reason: Other:; gallstone pancreatitis; Clinical Question(s): Biliary Obstruction; Special Instructions: MRCP protocol; Order Comment: Please see Reference Text for complete listof contraindications Biliary Obstruction TECHNIQUE: Multiplanar, multisequence noncontrast MRI evaluation of the abdomen was performed without intravenous contrast. COMPARISON: CT abdomen pelvis with contrast 07/10/2023. FINDINGS: LOWER THORAX: Dependent atelectasis of both lower lobes. No pleural or pericardial effusion. LIVER: Normal contour and size. No suspicious lesion, within limits on noncontrast technique. Normal parenchymal signal. GALLBLADDER: Percutaneous cholecystostomy tube in place. Numerous stones and layering T1 hyperintense sludge is present. Mild wall thickening of the gallbladder measuring up to 4 mm. There is associated mild wall edema and trace pericholecystic fluid. BILE DUCTS: Bile duct is dilated up to approximately 8 mm tapering distally to 4 mm. There are filling defects in the midportion of the common bile duct measuring 3 and 4 mm respectively (27/3) compatible with choledocholithiasis. Possible additional punctate focus of choledocholithiasis in the distal common bile duct (45/4). SPLEEN: No splenomegaly. Few subcentimeter T2 hyperintense, T1 hypointense foci, in appearance which is nonspecific, though could represent small cystic lesions. PANCREAS: Diffuse pancreas edema along the course of pancreas with a small volume of peripancreaticfluid. No focal acute peripancreatic collection. No pancreatic ductal dilatation. Trace fluid extends in the retroperitoneum and along the anterior pararenal space into the paracolic contours bilaterally, left greater than right. ADRENAL GLANDS: No nodules. KIDNEYS: No hydronephrosis. 3.8 cm partially exophytic simple cyst in the lower pole of the left kidney. There are also 2 hyperintense, T2 hypointense cystic foci in the left kidney which most likelyrepresent hemorrhagic or proteinaceous cyst. Few additional subcentimeter bilateral renal T2 hyperintense foci consistent with cysts. Few areas of parenchymal scarring bilaterally. STOMACH/UPPER GI TRACT: The stomach is underdistended. There is a small type I hiatal hernia. Scattered colonic diverticula without diverticulitis. Small bowel loops are normal in caliber. PERITONEUM AND RETROPERITONEUM: Trace fluid in the left lower quadrant paracolic gutter. Mild mesenteric edema. Trace perihepatic and perisplenic ascites. LYMPH NODES: No pathologically enlarged lymph nodes. VESSELS: Abdominal aorta is nonaneurysmal. Large caliber arteries and veins demonstrate intact flowvoids. ABDOMINAL WALL: Bilateral flank edema and dependent edema in the soft tissues of the lower back. BONES: Unremarkable. IMPRESSION: 1. Moderate acute pancreatitis with a small volume of peripancreatic fluid and mesenteric edema, similar to the recent CT. 2. Choledocholithiasis with at least 2 stones in the midportion of the common bile duct and a possible third stone in the distal common bile duct. 3. Cholelithiasis with gallbladder wall thickening, edema and pericholecystic fluid suggestive of cholecystitis. Unchanged position of the percutaneous cholecystostomy tube. An actionable message (Yellow) has been communicated via the [employer] system on 07/12/2023 8:08 AM, Message ID [id number]. WSN: [id number] Ordering Physician: Gillian Carrillo Dictated By: Inocencio Shell MD Dictated Date/Time: 07/12/23 8:08 am Reviewed By: Inocencio Shell MD Signed By: Inocencio Shell MD Signed Date/Time: 07/12/23 8:08 am Transcribed By: BRANDIN Transcribed Date/Time: 07/12/23 7:52 am * Exam Date Time Procedure Performing Provider Status 07/11/23 12:11 PM Abdomen AP Lorenzo Clifford; Susan (Verified) Notes: (Abdomen AP) Reason For Exam: Distention RESULT: XR Abdomen AP XR Abdomen AP 1 view INDICATION/CLINICAL QUESTION: Reason: Distention; Clinical Question(s): Obstruction COMPARISON: CT 07/10/2023 FINDINGS: Right upper quadrant pigtail catheter compatible with cholecystostomy tube. Nonobstructive bowel gas pattern. Mild stool retention in the ascending colon. No supine evidence of pneumoperitoneum. No acute osseous abnormality. IMPRESSION: Nonobstructive bowel gas pattern. WSN: [id number] Ordering Physician: Gillian Carrillo Dictated By: Arcadio Lamar MD Dictated Date/Time: 07/11/23 4:17 pm Reviewed By: Arcadio Lamar MD Signed By: Arcadio Lamar MD Signed Date/Time: 07/11/23 4:17 pm Transcribed By: BRANDIN Transcribed Date/Time: 07/11/23 4:16 pm * Exam Date Time Procedure Performing Provider Status 07/10/23 4:[address] Abd/Pelvis W/ IV Contrast Only Gabrielle Handley; Auth (Verified) Notes: (CT Abd/Pelvis W/ IV Contrast Only) Reason For Exam: RUQ abdominal pain;Other: RESULT: CT Abd/Pelvis W/ IV Contrast Only CT Abd/Pelvis W/ IV Contrast Only HX OF PRESENT ILLNESS: Pt c o abd distension and increased pain x 2 days, has T- tube in place draining drk green bile. abd round distended, hypoactive BS, denies N V D, last BM was yesterday. denies fever TECHNIQUE: Spiral CT through the abdomen and pelvis with IV contrast formatted in 3 planes. 100 cc of Omnipaque 300 was administered intravenously. This study was performed without oral contrast. Weight-based protocol using automatic tube modulation was used to optimize exposure parameters. CTDIvol Body: 15.60 mGy, DLP Body: 812 mGy*cm. COMPARISON: 06/28/2023 and prior. FINDINGS: Sales Ambassador View Findings, Lines and Tubes: Percutaneous transhepatic drain within the gallbladder lumen,unchanged. Visualized Chest: Bilateral dependent atelectasis with peribronchial thickening and a few air bronchograms. No pleural effusion. The heart is normal in size. No pericardial effusion. Diaphragm: Normal. Liver: Normal. Gallbladder: Contains a PTD with minimal adjacent fat stranding. Mild mucosal enhancement of the gallbladder. Bile ducts: Mildly dilated measuring 9 mm, with a hyperdense filling defect seen at the distal common bile duct (series 202:51), more prominent than priors.. Mild mucosal enhancement of the common bile duct. Spleen: Unchanged small upper pole subcentimeter hypodensity, indeterminate but favored to be benign. Pancreas: New mild peripancreatic fat stranding and fluid extending into the left anterior and posterior pararenal spaces and bilateral paracolic gutters. The pancreatic duct is of normal caliber. Adrenal glands: Normal. Kidneys and ureters: Unchanged posterior left upper lobe cortical calcification. No hydronephrosis,stones, or suspicious masses. Simple appearing renal cysts and hypodensities that are too small to characterize are noted, requiring no dedicated follow up. Bladder: Normal. Reproductive organs: Unchanged endometrial thickness measuring 1.1 cm. Stomach, small bowel, and large bowel: Mild duodenal wall thickening which may be reactive. Scattered noninflamed colonic diverticula, with previously suspected diverticulitis appearing to have resolved. Remaining bowel is unremarkable. Appendix: Not seen. Peritoneum and retroperitoneum: No pneumoperitoneum. Trace fluid most in the left anterior and posterior pararenal spaces in the bilateral, paracolic gutters. No omental or mesenteric lesions. Lymph nodes: Peripancreatic reactive looking lymph nodes. Blood vessels: Severe atherosclerotic vascular calcification but no aneurysm. No evidence of venousthrombosis. Abdominal and pelvic wall: Small fat-containing periumbilical hernia. Bones: No acute abnormality. IMPRESSION: 1. Findings consistent with acute interstitial pancreatitis, with a small hypodense filling defect at the distal common bile duct,? Calculus versus debris., However the pancreatic duct is not dilatedat this time. 2. Mild patchy airspace opacities in bilateral lung bases new from the prior study, could be related to atelectasis although developing pneumonia is not excluded. 3. Previously suspected diverticulitis appears to have resolved. 4. Unchanged appearance of percutaneous transhepatic biliary drain within the gallbladder, with mild reactive mucosal enhancement and mild adjacent duodenitis, likely reactive. 5. Unchanged endometrial thickening measuring 1.1 cm, ultrasound follow-up is recommended I have personally reviewed the images and I agree with this report. WSN: [id number] Ordering Physician: Wilda Lopez Dictated By: Hanane Stevenson MD Dictated Date/Time: 07/10/23 7:19 am Reviewed By: Mary Bar MD Signed By: Mary Bar MD Signed Date/Time: 07/10/23 7:24 am Transcribed By: BRANDIN Transcribed Date/Time: 07/10/23 5:35 am Vital Signs Most recent to oldest [Reference Range]: 1 2 3 Height 158 cm (07/17/23 7:46 AM) 158 cm (07/16/23 8:26 AM) 158 cm (07/15/23 12:00 PM) Weight 67.8 kg (07/12/23 3:38 PM) 67.8 kg (07/11/23 5:32 AM) 69 kg (07/11/23 2:58 AM) Oxygen Saturation [94-100 %] 97 % (07/17/23 7:46 AM) 94 % (07/16/23 7:00 PM) 97 % (07/16/23 8:26 AM) Pulse Rate [55-90 bpm] 98 bpm *H* (07/17/23 9:20 AM) 98 bpm *H* (07/17/23 7:46 AM) 102 bpm *H* (07/16/23 8:35 PM) Body Mass Index [18.5-24.99 kg/m2] 27.16 kg/m2 *H* (07/12/23 3:38 PM) 27.16 kg/m2 *H* (07/11/23 5:32 AM) 27.64 kg/m2 *H* (07/11/23 2:58 AM) Blood Pressure [90-138/55-84 mm Hg] 144/71mm Hg *H* (07/17/23 9:20 AM) 144/71mm Hg *H* (07/17/23 7:46 AM) 152/82mm Hg *H* (07/16/23 8:35 PM) Respiratory Rate [16-30 br/min] 18 br/min (07/17/23 1:48 PM) 18 br/min (07/17/23 12:48 PM) 16 br/min (07/17/23 7:46 AM) Temperature [96.8-100.4 DegF] 98.0 DegF (07/17/23 7:00 AM) 99.1 DegF (07/16/23 7:00 PM) 98.9 DegF (07/16/23 8:26 AM) Mode of Delivery (Oxygen) Room air (07/17/23 7:46 AM) Room air (07/16/23 7:00 PM) Room air (07/16/23 8:26 AM) Blood pressure sites Arm, left (07/17/23 7:46 AM) Arm, left (07/16/23 7:00 PM) Arm, left (07/16/23 8:26 AM) Temperature Route Oral (07/17/23 7:00 AM) Oral (07/16/23 7:00 PM) Oral (07/16/23 8:26 AM) Dry Weight 67.8 kg (07/11/23 5:32 AM) 69 kg (07/11/23 2:58 AM) 69 kg (07/10/23 8:56 PM) Social History Social History Type Response Smoking Status Never (less than 100 in lifetime);Former smoker, quit more than 30 days ago entered on: 06/17/23 Sex RF Guidance for endoscopy of Biliary ducts and Pancreatic duct-- W contrast retrograde * Event Display: GG ERCP Please click on pdf link to open report History and physical note * Asif Kamara MD: PERFORM Event Display: History and Physical Hospital Authored Date: [id number] Patient: ??JHONNY SHARP ? Age:??83 Years?Sex:??Female?:??1940?? Chief Complaint Pt coming from home with chief complaint of upper quadrant abdominal pain. Pt denied NVD. Pt statedthat she had a drain put in for her gallbladder removal 2 weeks ago. Pt states that the pain started a couple of days ago. Pt experiences pain upon palpati Physical Exam Vitals & Measurements T:??98.1?F?? HR:??110??(Peripheral)?? RR:??18?? BP:??110/81?? SpO2:??95%?? HT:??158??cm?? WT:??67.8??kg?? BMI:??27.16?? General: No acute distress Head: Atraumatic, normocephalic ENT: Clear CV: Regular rate and rhythm Pulmonary: Even and unlabored breathing, no wheezing Abdomen: Abdomen is soft mildly distended??with tenderness to palpation in the epigastric region??with no right upper quadrant tenderness??no peritonitis no rebound tenderness. ??CT tube??in the right upper quadrant.?? Bilious drainage within the??collection bag??without purulence no foul smell Extremities: Demonstrates intact active range of motion Neuro: Appropriate, oriented, cooperative Assessment/Plan Emperatriz is an 83-year-old woman??with significant past medical history including??critical aortic stenosis and left main coronary artery disease??with additional hypertension, hyperlipidemia??hypothyroidism and anxiety??who??initially presented to the ED in early June with acute cholecystitis managed by CT tube??and has since??been readmitted on 1???25??with choledocholithiasis. ?? At patient's original admission??she was deemed too high risk for surgery.?? She has been seen by cardiology and also cardiothoracic surgery who as of a year ago recommended that she have aortic valve repair??as well as??a??CABG for her vessel disease. ??Despite this she is quite independent??at home until very recently??and ambulates by herself??but would be unable to go up stairs without becoming slightly breathless. ??These factors make her extremely high risk for emergent or elective procedure. ??According to the [employer] calculator she is at elevated risk for her age with almost a 30% risk of??major complication and somewhere between a??4 and 10% risk of?? as a result of any surgical intervention. ?? She presented on ??? with abdominal pain and at that time??had biochemical evidence of pancreatitis with a lipase of 3000.?? She underwent a MRI scan of the abdomen??which showed pancreatitis as well as multiple stones within the common bile duct??suggesting a diagnosis of gallstone pancreatitis. ??She still had her CT tube in at this time and it was draining??normal colored bile without purulence.?? She was seen and evaluated by GI who performed an ERCP??I were able to extract all the stones??and since that time her lipase??has normalized and her white cell count has come from 19 down to 12. ??During this time??she was kept on??IV antibiotics as empiric treatment??for possible ascendingcholangitis in the setting of elevated white count however??she did not display all the clinical signs of this diagnosis. ?? On my evaluation today??patient had some persistent epigastric pain but no pain in the right upper quadrant.?? Her??biochemical workup??demonstrated normalized lipase and??significantly down trended white blood cell count. ??The ERCP report??noted that the cystic duct was completely occluded still with no flow??suggesting that the patient would not be ready for??any??discussions about CT tube removal??if that was even possible. ??Unfortunately her??surgical risk remains extremely high??and willlikely remain so given her??cardiac disease which she is??not interested in addressing. ??At this time??we will??plan to see her in the office in 1 to 2 weeks. ??She will not??get a drain study before that time as will use this office visit to discuss??next steps in her care. ??It is possible??thatshared decision-making could be used to remove the C tube given her functionality??with the idea that her cholecystitis could come back.?? Is also possible that she could be managed??more long-term with??gallbladder decompression??given that she is not fit for surgical intervention. ? Plan: ?? -Our office is currently closed, our number is provided in the discharge workflow. I??would asked the patient to??call our office to set up 1 to 2-week follow-up with Dr. Fajardo her original surgeon ?? -Patient is currently on ceftriaxone Flagyl,??unlikely that patient had ascending cholangitis however??would recommend 4 days of abx??from??source control procedure??which would mean antibiotics until 1???29 ?? -Patient can be transition to oral alternatives??that cover gram + and negative ravi + anaerobes. does not need to remain in the hospital??for IV medications ?? -Patient should continue to manage??her C??tube as she has at home since its placement ?? -patient had some diarrhea and history of Cdiff, in the context of benign abdomen and downtrending WBC count would not pursue but if worsening consider testing? Surgery will sign off ?? Discussed with ??[facility] #[id number] with questions or concerns?? Problem List/Past Medical History Ongoing Anxiety HTN (hypertension) Hypothyroidism Left main coronary artery disease Procedure/Surgical History Endoscopic retrograde cholangiopancreatography (ERCP); with removal of calculi/debris from biliary/pancreatic duct(s): 07/12/23 Home Medications Aspirin: 81 mg = 1 tablet, By Mouth, Daily Carvedilol: 12.5 mg = 0.5 tablet, By Mouth, 2 times a day, Pt is on Nebivolol 10 mg po daily. Conversion is Coreg 25 bid. May adjust dose per evidence. Cholecalciferol: 25 mcg = 1 tablet, By Mouth, Daily Clonazepam: 0.5 mg = 1 tablet, By Mouth, 2 times a day Docusate: 100 mg = 1 capsule, By Mouth, 2 times a day, PRN (Constipation) Levothyroxine: 75 mcg = 1 tablet, By Mouth, Daily Multivitamin: 1 tablet, By Mouth, Daily Nortriptyline: 50 mg = 1 capsule, By Mouth, Daily Simvastatin: 40 mg = 1 tablet, By Mouth, Daily at bedtime Vancomycin: 125 mg = 1 capsule, By Mouth, Every 6 hours, Doses over 125 mg require ID consult. Indication for Use: C. difficile colitis Allergies penicillin Social History Tobacco Use: Never (less than 100 in lifetime), Former smoker, quit more than 30 days ago. Family History No family history recorded. Lab Results Labs Last 24 Hours BLOOD COUNT & DIFF ? Event Name?? Event Result?? Date/Time?? WBC 12.8 k/mm3??High 07/14/23 06:19:00 RBC 3.67 m/mm3??Low 07/14/23 06:19:00 Hgb 10.5 Gm/dL??Low 07/14/23 06:19:00 Hct 32.2 %??Low 07/14/23 06:19:00 MCV 87.7 femtoliters 07/14/23 06:19:00 MCH 28.6 pg 07/14/23 06:19:00 MCHC 32.6 g/dL??Low 07/14/23 06:19:00 Platelet Count 263 k/mm3 07/14/23 06:19:00 MPV 10.1 femtoliters 07/14/23 06:19:00 Nucleated RBC (Automated) 0 #/100 WBC'S 07/14/23 06:19:00 ? CHEM GENERAL ? Event Name?? Event Result?? Date/Time?? Sodium 141 mmol/L 07/14/23 06:19:00 Chloride 106 mmol/L 07/14/23 06:19:00 Bicarbonate Level 24 mmol/L 07/14/23 06:19:00 Anion Gap 11 07/14/23 06:19:00 BUN 3 mg/dL??Low 07/14/23 06:19:00 Creatinine-Blood 0.5 mg/dL 07/14/23 06:19:00 Alkaline Phosphatase 119 units/L??High 07/14/23 06:19:00 Lipase 26 units/L 07/14/23 06:19:00 AST (SGOT) 11 units/L 07/14/23 06:19:00 ALT (SGPT) 11 units/L 07/14/23 06:19:00 Bilirubin, Total 0.4 mg/dL 07/14/23 06:19:00 Bilirubin, Direct <0.2 07/14/23 06:19:00 Bilirubin, Indirect Direct bilirubin is less than the measureable limit. Therefore, indirect 07/14/23 06:19:00 ? * Inocencio Coyle MD: PERFORM Event Display: History and Physical Hospital Authored Date: Attending attestation: Patient??seen and examined by me on date of service, and??all pertinent labs and imaging reviewed. The??patient was discussed with the resident. I agree with the findings and plan as documented in this note. No acute surgical intervention at this time. * Philippe Espinoza DO: PERFORM, MODIFY, MODIFY Event Display: History and Physical Hospital Authored Date: Patient: ??JHONNY SHARP ? Age:??83 Years?Sex:??Female?:??1940?? Chief Complaint/Reason for Consultation Pt coming from home with chief complaint of upper quadrant abdominal pain. Pt denied NVD. Pt statedthat she had a drain put in for her gallbladder removal 2 weeks ago. Pt states that the pain started a couple of days ago. Pt experiences pain upon palpati History of Present Illness 83 y/o female with a past medical history of hypothyroidism, Anxiety, aortic stenosis, CAD, hypertension, recent hospitalization for cholecystostomy placement, later develiped sigmoid diverticulitis with course complicated by cdiff colitis, represents to the ED with 1 day history worsening abdominal pain, bloating and nausea. She reports doing well since leaving the hospital on 07/02, tolerating diet . Deines fevers, chills, cough, sob, cp, diarrhea. C tube has been draining however color has changed from bilious to almost black. Her son is at bedside and corroborates history. ?? ED course: VSS. labs with mild leukocytosis, elevated LIpase and lfts CT abd: ?? 1. ??Findings consistent with acute interstitial pancreatitis, with a small hypodense filling defect at the distal common bile duct,? Calculus versus debris., However the pancreatic duct is not dilated at this time. 2. ??Mild patchy airspace opacities in bilateral lung bases new from the prior study, could be related to atelectasis although developing pneumonia is not excluded. 3. ??Previously suspected diverticulitis appears to have resolved. 4. ??Unchanged appearance of percutaneous transhepatic biliary drain within the gallbladder, with mild reactive mucosal enhancement and mild adjacent duodenitis, likely reactive. 5. ??Unchanged endometrial thickening measuring 1.1 cm, ultrasound follow-up is recommended ? she was given a dose of zofran in ED. Surgical team was consulted and since she has had a cholecystectomy in the past do not believe sheneeds any acute surgical intervention. ??GI team was consulted for ERCP.? pt is feeling much better and is asking to eat as she is 'starving' ?? Review of Systems as per above Objective ? Vital Signs?? Temperature: 98.8 DegF (07/10/23 12:59:00) Temperature Route: Oral (07/10/23 12:59:00) Pulse Rate:??111 bpm??High (07/10/23 12:59:00) Respiratory Rate: 20 br/min (07/10/23 12:59:00) Systolic Blood Pressure:??152 mm Hg??High (07/10/23 12:59:00) Diastolic Blood Pressure: 84 mm Hg (07/10/23 12:59:00) Blood pressure sites: Arm, right (07/10/23 11:13:00) Mean Arterial Pressure: 98 mm Hg (07/10/23 11:13:00) Pulse Pressure: 52 mm Hg (07/10/23 11:13:00) Oxygen Saturation: 97 % (07/10/23 12:59:00) Mode of Delivery (Oxygen): Room air (07/10/23 12:59:00) Early Warning Score: 2 (07/10/23 13:00:30) ? Physical Exam General:??NAD Head:??NCAT Eyes:??EOMI Ear, Nose and Throat:??MMM Respiratory:??CTA Cardiovascular:RRR Gastrointestinal:??soft tender upper quadrants, c tube noted in situ Neurologic :alert and oriented x3 ext: no edema ?? Assessment/Plan Diagnoses Abdominal pain Pancreatitis K85. 90 Choledocholithiasis (K80.50) recent??admission for cholecytsis with c tube placement surgery was consulted in ED, nothing further to offer from their end awaiting gi reccs ?ERCP? will give pt??CLD for now, NPO after MN in case of intervention pain??management trend lipase, LFTs ? HTN (hypertension) (I10):??stable. resume?? home??coreg ?? Anxiety (F41.9):??resume home meds ?? Hypothyroidism (E03.9):??resume L thyroxine ?? Left main coronary artery disease (I25.10):??resume asa. hold statin d/t deranged LFTs ? VTE Prophylaxis:??boots ?VTE Prophylaxis Assessment:??VTE Prophylaxis Ordered ?? Code Status:??DNR, confirmed with patient. ? Histories Allergies Allergies ?(Active and Proposed Allergies Only) penicillin? (Severity: Unknown severity, Onset: Unknown) ?Comments: doesn't remember reaction ? Past Medical History/Problem List Active Problems??(4) Anxiety HTN (hypertension) Hypothyroidism Left main coronary artery disease ? Past Surgical History No surgery history documented. ? Social History Tobacco Details:??Use: Never (less than 100 in lifetime), Former smoker, quit more than 30 days ago. ? Family History No family history recorded. ? Medications Home Medications Aspirin (aspirin 81 mg [...] mg oral tablet)?40?Milligram?1?tablet?By Mouth?Daily at bedtime ? Results Recent Labs BLOOD COUNT & DIFF WBC 14.3 k/mm3 (High)?? 07/10/2023 02:58 RBC 4.47 m/mm3 ()?? 07/10/2023 02:58 Hgb 12.9 Gm/dL ()?? 07/10/2023 02:58 Hct 39.9 % ()?? 07/10/2023 02:58 MCV 89.3 femtoliters ()?? 07/10/2023 02:58 MCH 28.9 pg ()?? 07/10/2023 02:58 MCHC 32.3 g/dL (Low)?? 07/10/2023 02:58 Platelet Count 304 k/mm3 ()?? 07/10/2023 02:58 RDW-SD 41.7 femtoliters ()?? 07/10/2023 02:58 MPV 9.7 femtoliters ()?? 07/10/2023 02:58 Nucleated RBC (Automated) 0.0 #/100 WBC'S ()?? 07/10/2023 02:58 Abs. NRBC 0.0 k/mm3 ()?? 07/10/2023 02:58 Abs. Neut 11.7 k/mm3 (High)?? 07/10/2023 02:58 Abs. Lymph 1.8 k/mm3 ()?? 07/10/2023 02:58 Abs. [place] 0.7 k/mm3 ()?? 07/10/2023 02:58 Abs. Eo 0.0 k/mm3 ()?? 07/10/2023 02:58 Abs. Baso 0.0 k/mm3 ()?? 07/10/2023 02:58 Neut % 81.8 % (High)?? 07/10/2023 02:58 Lymph % 12.3 % (Low)?? 07/10/2023 02:58 [place] % 4.6 % ()?? 07/10/2023 02:58 Eos % 0.3 % ()?? 07/10/2023 02:58 Baso % 0.3 % ()?? 07/10/2023 02:58 Imm Gran 0.7 % ()?? 07/10/2023 02:58 Abs. Imm Gran 0.1 k/mm3 ()?? 07/10/2023 02:58 ?? CHEM GENERAL Sodium 138 mmol/L ()?? 07/10/2023 02:58 Potassium 4.2 mmol/L ()?? 07/10/2023 02:58 Chloride 104 mmol/L ()?? 07/10/2023 02:58 Bicarbonate Level 23 mmol/L ()?? 07/10/2023 02:58 Anion Gap 11 ()?? 07/10/2023 02:58 Glucose Level 126 mg/dL (High)?? 07/10/2023 02:58 BUN 9 mg/dL ()?? 07/10/2023 02:58 Creatinine-Blood 0.6 mg/dL ()?? 07/10/2023 02:58 Estimated GFR Creatinine 88 ML/MIN/1.73 M2 ()?? 07/10/2023 02:58 Calcium 8.9 mg/dL ()?? 07/10/2023 02:58 Protein, Total 6.1 Gm/dL (Low)?? 07/10/2023 02:58 Albumin 4.0 Gm/dL ()?? 07/10/2023 02:58 AG Ratio 1.9 ()?? 07/10/2023 02:58 Alkaline Phosphatase 339 units/L (High)?? 07/10/2023 02:58 Lipase 2701 units/L (High)?? 07/10/2023 02:58 AST (SGOT) 98 units/L (High)?? 07/10/2023 02:58 ALT (SGPT) 53 units/L (High)?? 07/10/2023 02:58 Bilirubin, Total 0.5 mg/dL ()?? 07/10/2023 02:58 Lactate 0.9 mmol/L ()?? 07/10/2023 02:58 ?? HEME OTHER Hold Blue Top SPECIMEN DISCARDED AFTER 4 HOURS. ()?? 07/10/2023 02:58 ? EKG study * Event Display: ECG 12-Lead Authored Date: Please click on pdf link to open report * Event Display: ECG 12-Lead Authored Date: Ventricular Rate: 90 BPM Atrial Rate: 90 BPM P-R Interval: 156 ms QRS Duration: 92 ms Q-T Interval: 366 ms QTC Calculation(Bazett): 447 ms P [place]: 34 degrees R [place]: 6 degrees T [place]: 30 degrees Normal sinus rhythm Normal ECG When compared with ECG of 18-JUN-2023 07:14, No significant change was found Confirmed by CATHERINE HEIN MD ([id number]) on 07/15/2023 12:08:52 PM [place]: CATHERINE HEIN MD Cardiology * Event Display: Cardiac Rhythm Strips Authored Date: Hospital Progress note * Radha Baer RN: PERFORM, SIGN, VERIFY, MODIFY, SIGN Event Display: Progress Note Hospital Authored Date: Patient: JHONNY SHARP Age: 83 years Sex: Female : 1940 Associated Diagnoses: None Author: Radha Baer RN Findings Problem Related to Alteration in Tissue Perfusion : Alteration in Tissue Perfusion 07/17/2023 14:00 EST Alteration Tissue Perfusion related to Deep vein thrombosis Goals & Outcomes: Tissue perfusion Pt will maintain optimal perfusion to vital organs, Pt will resume/maintain adequate peripheral circulation, Pt will be hemodynamically stable, Pt will achieve normal/improved/optimal neuro status, Pt will maintain adequate GI function appropriate for pt, Pt will maintain adequate function appropriate for pt, Pt will be monitored for development of embolic event Interventions: Tissue Perfusion Assess/Monitor CMS to affected extremity, Assess/Monitor mental status, Assess/Monitor vital signs per unit standard & prn, Maintain precautions per Infection Control Standards, Monitor labs & report variances to provider, Position for comfort, Teach pt/caregiver discharge plan & follow up care, Teach pt/caregiver on plan of care, treatment, s/s & meds, Teach pt/caregiver on use of pain scale, Teach Pt/caregiver signs & symptoms of infection BH Goals/Interventions, Tissue Perfusion Yes Tissue Perfusion, Problem Start 07/17/2023 15:00 Reviewed Plan with, Tissue Perfusion Patient Patient Progression, Tissue Perfusion Plan Initiation . Narrative/Incidental Pt discharged home with home services, left unit at around 1700 via wheelchair accompanied by her son. Discharge packet and instructions given to the son.. * Dacia Rivera RN: PERFORM, SIGN, VERIFY, MODIFY, SIGN Event Display: Progress Note Hospital Authored Date: [id number] Patient: JHONNY SHARP Age: 83 years Sex: Female : 1940 Associated Diagnoses: None Author: Dacia Rivera RN Findings Problem Related to Alteration in Gastrointestinal : Alteration in Gastrointestinal Func/new 07/16/2023 17:00 EST Alteration in GI status Related to Pancreatitis, Other: choledocholithiasis/ gallstones Goals & Outcomes, Gastrointestinal Establish a regular pattern of elimination for pt, Nutritional intake is adequate for metabolic needs, Pt will achieve normal/improved fluid balance, Pt will have a bowel movement prior to discharge, Pt will maintain adequate GI function appropriate for pt, Ptwill maintain normal elimination patterns, Pt will resume/maintain adequate hemodynamic status, Pt w ill tolerate age appropriate diet prior to discharge, Pt will exhibit decreasing s & s of peritonitis Interventions, Gastrointestinal Assess/monitor abdomen for distention, tenderness, Assess/monitor abdominal girth & bowel function, Assess/monitor number of bowel movements, Assess/monitor color,quantity, quality, consistency of stoo Goals/Interventions, Gastrointestinal Yes Gastrointestinal, Problem Start 07/16/2023 22:30 Reviewed plan with, Gastrointestinal Patient Patient Progression, Gastrointestinal Pt progressing according to plan . Nursing Data Vital Signs : VITAL SIGNS SECTION 07/16/2023 19:00 EST Temperature 99.1 DegF Temperature Route Oral Pulse Rate 102 bpm H Respiratory Rate 22 br/min Systolic Blood Pressure 155 mm Hg H Diastolic Blood Pressure 73 mm Hg Blood pressure sites Arm, left Pulse Pressure 82 mm Hg Oxygen Saturation 94 % Mode of Delivery (Oxygen) Room air . Narrative/Incidental A/Ox3. Very anxious. AVSS. LS-dim. no c/o CP/SOB/ Nausea. BS+, Last BM 07/16/23. Abdomen- slightly distant. Mild tenderness to right side when palpate. Refused pain Meds. C/o indigestion. Tums given.Iv fluid on. Transhepatic Cholecystomy tube in place -right side. No drainage noted. IV fluid on flow. Void in the commode. Slept well through the night. Safety and comfort maintained. 06:45 Patient c/o pain under right Knee . score10. Tylenol PRN given. No edema. Pedal pulses+. Goodstrenght and movement. Patient stand up and use bedside commode with mild pain. MD Romero and Rachel RNnotified.. * Howie Brown RN: PERFORM, SIGN, VERIFY Event Display: Progress Note Hospital Authored Date: Patient: JHONNY SHARP Age: 83 years Sex: Female : 1940 Associated Diagnoses: None Author: Howie Brown RN Findings Problem Related to Alteration in Gastrointestinal : Alteration in Gastrointestinal Func/new 07/16/2023 17:00 EST Alteration in GI status Related to Pancreatitis, Other: choledocholithiasis/ gallstones Goals & Outcomes, Gastrointestinal Establish a regular pattern of elimination for pt, Nutritional intake is adequate for metabolic needs, Pt will achieve normal/improved fluid balance, Pt will have a bowel movement prior to discharge, Pt will maintain adequate GI function appropriate for pt, Ptwill maintain normal elimination patterns, Pt will resume/maintain adequate hemodynamic status, Pt w ill tolerate age appropriate diet prior to discharge, Pt will exhibit decreasing s & s of peritonitis Interventions, Gastrointestinal Assess/monitor abdomen for distention, tenderness, Assess/monitor abdominal girth & bowel function, Assess/monitor number of bowel movements, Assess/monitor color,quantity, quality, consistency of stoo BH Goals/Interventions, Gastrointestinal Yes Gastrointestinal, Problem Start 07/16/2023 22:30 Reviewed plan with, Gastrointestinal Patient Patient Progression, Gastrointestinal Pt progressing according to plan . Narrative/Incidental Patient alert and oriented x4. Ambulates with standby assist, Gait slow and steady. Patient had x3 bowel movements on my shift. No acute evnts on my shift. Frequent rounding maintained. . Discharge Information Rehabilitation Discharge : Rehab Discharge Index 07/16/2023 8:57 EST Walker: distance >50 07/14/2023 9:52 EST Comments on treatment indicated 83 F admitted 2' abdominal px, pancreatitis, andcholedocholithiasis. PT for balance, strengthening, bed mobility, transfers c RW, amb c RW, stairs.Rec home c services. Walker: distance >50 Distance pt will ambulate 100' c RW Full chart review completed Yes Hospital course Hospital course Plan of care PT Gait training, Transfer training, Therapeutic exercise, Functional Activities, Balance training, Neuromuscular education Consult note * Ciara Gonzalez MD: PERFORM, MODIFY, MODIFY Event Display: Consultation Note Authored Date: Patient: ??JHONNY SHARP ? Age:??83 Years?Sex:??Female?:??1940?? Referrring Provider Not on Staff, Referring MD Wilda Lopez Chief Complaint Pt coming from home with chief complaint of upper quadrant abdominal pain. Pt denied NVD. Pt statedthat she had a drain put in for her gallbladder removal 2 weeks ago. Pt states that the pain started a couple of days ago. Pt experiences pain upon palpati Reason for Consultation Gallstone pancreatitis History of Present Illness 83-year-old female with history of recent episode of acute cholecystitis s/p Cholecystostomy on 06/19/23, aortic stenosis and left main coronary artery disease on aspirin, hyperlipidemia, hypertension,hypothyroidism and anxiety who presented to the hospital with complaints of abdominal pain. Patientreports that since her last discharge with a C tube placement she was doing well until yesterday when she developed acute onset abdominal pain, epigastric, severe, still ongoing, associated with nausea. She says currently abdominal pain is improved from before. She is able to tolerate liquids only.She has never had pancreatitis before. She does not drink any alcohol. ?? On presentation, patient was afebrile, pulse 92, BP normal, saturating well on room air.?? Labs significant for WBC 14.3 with neutrophilic predominance, hemoglobin 12.9 higher than baseline, BMP WNL, BUN 9/creatinine 0.6.?? Alk phos 339, AST 98, ALT 53, total lipase 2700.?? Total bilirubin 0.5, fractionation not available.?? Lactate 0.9.?? CT abdomen with IV contrast showed evidence of mild acute interstitial pancreatitis, with mildly dilated CBD measuring 9 mm, and a hypodense filling defect in the distal CBD.?? Pancreatic duct is not dilated.?? Transhepatic bile drain is seen within the gallbladder. Review of Systems ?? ROS was completed and otherwise negative except as noted in the HPI Physical Exam Vitals & Measurements T:??98.8?F?? TMIN:??97.8?F?? TMAX:??98.8?F?? HR:??110??(Peripheral)?? RR:??20?? BP:??149/79?? SpO2:??96%?Gen Appearance: NAD, conversing appropriately ?HEENT: conjunctiva wnl, MMM?Heart: S1/S2 heard ?Lungs: No overt resp distress, CTA ?Abdomen: soft, epigastric tenderness, nondistended?Musculoskeletal: No joint swelling/erythema ?Neurological: A/Ox3, no gross deficits ?Extremities: No SUMIT, Normal Capillary refill ?Derm: No rash Assessment/Plan 83-year-old female with history of recent episode of acute cholecystitis s/p Cholecystostomy on 06/19/23, aortic stenosis and left main coronary artery disease on aspirin, hyperlipidemia, hypertension,hypothyroidism and anxiety who presented to the hospital with complaints of abdominal pain. ?? Acute pancreatitis, likely gallstone induced Patient presented with complaints of acute onset??epigastric abdominal pain along with nausea. ??Patient has been found to have??severely elevated lipase??up to 2700,??along with??imaging confirming acute interstitial pancreatitis.?? CT abdomen also shows??CBD dilation, and a possible distal??CBD calculus.?? Patient's alk phos is elevated from baseline??320 from 150. ??However her total bilirubinis normal.?? Given her advanced age, and ongoing pancreatitis, will need further??confirmation of her stone before proceeding for ERCP.?? Patient has no other risk factors for??pancreatitis??such as alcohol use, or family history of pancreatic cancer/pancreatitis. ?? Recommendations: ??? Obtain MRI abdomen??with MRCP reformats ?Obtain ionized calcium and triglyceride level ?N.p.o. after midnight for possible ERCP, however due to limited availability will likely be onThu ??? Continue maintenance fluids at 1.5 mL/kg/h until patient has adequate oral intake for 12 hours at least ?? Discussed with Dr. Monson Problem List/Past Medical History Ongoing Anxiety HTN (hypertension) Hypothyroidism Left main coronary artery disease Medications Inpatient acetaminophen 325 mg oral tablet, 975 mg, By Mouth, Every 6 hours, PRN aspirin 81 mg oral delayed release tablet, 81 mg, By Mouth, Daily Coreg 25 mg oral tablet, 12.5 mg, By Mouth, 2 times a day Dilaudid Inj, 0.5 mg= 0.5 mL, IV Push Slowly, Every 4 hours, PRN Docusate Sodium Capsule, 100 mg= 1 capsule, By Mouth, 2 times a day, PRN levothyroxine 0.025 mg oral tablet, 75 mcg, By Mouth, Daily Melatonin Tablet, 3 mg, By Mouth, Daily at bedtime, PRN MiraLax Powder, 17 Gm= 1 pack/packet, By Mouth, Daily, PRN NaCL 0.9% 1,000 mL, 1000 mL, IV Infusion NaCL 0.9% Flush, 3 mL, IV Push, Every 8 hours NaCL 0.9% Flush, 3 mL, IV Push, Every 8 hours, PRN nortriptyline 25 mg oral capsule, 50 mg, By Mouth, Daily Robitussin DM Liquid, 10 mL, By Mouth, Every 4 hours, PRN Senna Tablet, 8.6 mg= 1 tablet, By Mouth, 2 times a day, PRN Simethicone Tablet, 80 mg, Chew, 3 times a day, PRN Home aspirin 81 mg oral delayed release [...] By Mouth, 2 times a day, PRN levothyroxine 75 mcg (0.075 mg) oral tablet, 75 mcg= 1 tablet, By Mouth, Daily nortriptyline 50 mg oral capsule, 50 mg= 1 capsule, By Mouth, Daily simvastatin 40 mg oral tablet, 40 mg= [...] days ago. Family History No family history of pancreatitis or pancreatic cancer Note * Howie Brown RN: PERFORM Event Display: Discharge/Transfer Note Hospital Authored Date: [id number] Nursing Discharge Note Entered On: 07/17/2023 17:23 EST Performed On: 07/17/2023 17:22 EST by Howie Brown RN Nursing Discharge Note 2 Discharge Time : 07/17/2023 17:15 EST Discharge Level of Care at Discharge : Homehealth/VNA Discharge VNA/Hospice/Home Care(v001) : [facility] Patient Left Unit Via : Wheelchair Patient Accompanied Off Unit with : Responsible adult DC Instructions Provided & Signed by Pt : Yes Patient Understands D/C Instructions : Yes Patient Instructions Discharge Signed : Yes Did Pt have Specialty Bed or Wound Vac : Yes Howie Brown RN - 07/17/2023 17:22 EST * Gillian Liu: PERFORM Event Display: Discharge/Transfer Note Hospital Authored Date: [id number] Patient: ??JHONNY SHARP ? Age:??83 Years?Sex:??Female?:??1940?? Patient Information Discharge Location: A Primary Care Physician: Kelly STOVER, Jerman De León Admit Date/Time: 07/10/23 09:43 Discharge Date:??07/17/2023 14:43 Discharge Disposition Discharge Disposition: Home with Home Health Discharge Diagnosis C. difficile diarrhea (A04.72) HTN (hypertension) (I10) Anxiety (F41.9) Hypothyroidism (E03.9) Left main coronary artery disease (I25.10) Abdominal pain (R10.9) Aortic stenosis (I35.0) Choledocholithiasis (K80.50) Orthostatic lightheadedness (R42) Pancreatitis (K85.90) DVT of popliteal vein (I82.439) Ruptured Bakers cyst (M66.0) _ Discharge Medications apixaban (Eliquis Starter Pack 5 mg [...] Nortriptyline (nortriptyline 50 mg oral capsule)?50?Milligram?1?capsule?By Mouth?Daily Oxycodone (oxyCODONE 5 mg oral tablet)?2.5?Milligram?By Mouth?Every 6 hours?as needed?for 4?Days?Pain , Moderate Simethicone (simethicone 80 mg oral tablet, chewable)?80?Milligram?1?tablet?Chew?3 times a day?as needed?for 14?Days?Gas Simvastatin (simvastatin 40 mg oral tablet)?40?Milligram?1?tablet?By Mouth?Daily at bedtime Vancomycin (vancomycin 125 mg oral capsule)?1?capsule?125?Milligram?By Mouth?Every 6 hours?for 7?Days Medications Started Medisas starter pack Vancomycin capsule q6h x7 days Oxycodone PRN Simethicone PRN Medications Discontinued None Doses Changed None Allergies Allergies ?(Active and Proposed Allergies Only) penicillin? (Severity: Unknown severity, Onset: Unknown) ?Comments: doesn't remember reaction PCP Follow-Up/Heads-Up 1. Patient needs close follow up with General Surgery (Dr. Fajardo) for management of her c-tube 2. Diagnosed with a DVT this admission, please reassess need for anticoagulation after minimum of three months 3. Has now had c. diff, should be on prophylactic vanco if any antibiotics in the future to preventrecurrence Future Appointments Sunday 8:30 AM EST ?? Where: Interventional Radiology Status: Pending Hospital Course Ms. Sharp is an 83-year-old female with significant pmh of aortic stenosis, left main coronary artery disease, HLD, HTN, hypothyroidism, and anxiety who presented to the ER originally with abdominal pain. She had recent admission for cholecystitis and had cholecystostomy tube placed (06/19/23) d/t increased risk of mortality during surgery. CT abdomen w/ contrasts shows possible pancreatitis and dilated CBD @ 9mm. GI following and now s/p ERCP on 07/12 with successful extraction of one stone. Course c/b ongoing c. diff diarrhea, she continues on oral vancomycin at the time of discharge. On theday of discharge, the patient was complaining of posterior right knee pain, her calf was nonedematous, nontender with no overlying erythema. However a ultrasound was pursued to rule out a DVT and ultimately revealed an occlusive thrombus in both of the paired posterior tibial veins with evidence ofa ruptured Diaz's cyst. It appears that her discomfort is more likely related to the ruptured Diaz's cyst as opposed to the DVT, however she was started on VTE dosing of Eliquis after discussion of risk versus benefit of anticoagulation. On the day of discharge, the patient was tolerating a low-fat diet, her abdominal pain had significantly improved and labs remained stable. At this time, she was safe and stable for discharge with close and appropriate follow-up care. ?? See below for problem focused plan: Objective Abdominal pain (R10.9): Pancreatitis (K85.90): Choledocholithiasis (K80.50): Patient originally p/w abdominal pain and nausea. CT abdomen found evidence of acute pancreatitis. Likely gallstone etiology Recent admission for acute cholecystitis with cholecystostomy tube placed (too high risk for surgery) which is currently draining dark bilious fluid. Surgery and no acute intervention warranted MRCP confirming choledocholithiasis with at least 2 stones in the midportion of the CBD and a possible third stone in the distal CBD Now s/p ERCP on 07/12 with successful extraction of one stone. Completed a course of ceftriaxone andFlagyl for possible cholangitis - Low fat diet - Pain control with PRN Tylenol and oxycodone - Will need 1-2 week f/u with Dr. Fajardo (gen surg) ? C. difficile diarrhea (A04.72): Patient originally tested positive on 06/29, started on PO vanco 06/30, end date would be 07/14 Unfortunately has not received PO vanco since at least 07/10, she is unsure if was taking at home Now having loose stools, PO vanco restarted on 07/14. Leukocytosis has been downtrending - Continue PO vanco x7 days -??Return precautions ? DVT of popliteal vein (I82.439): Ruptured Bakers cyst (M66.0): Patient c/o pauin behind right knee on 07/17, no clinical evidence of DVT however US revealed occlusive popliteal thrombus and ruptured Diaz's cyst Jacqui score was 3, patient was ambulatory in room, therefor DVT prophylaxis was mechanical/PCBs/ambulation Discussed risk vs benefit of starting anticoagulation with patient and HCP, they are in agreement and she was started on VTE dosing of Eliquis. No history of GIB or other major bleeding - Started VTE dosing of Eliquis, 10 mg BID x7 days, followed by 5 mg BID - Follow up with PCP in 1-2 weeks ? Chronic, stable or resolved medical conditions: HTN (hypertension) (I10): Continue home carvedilol Anxiety (F41.9): Continue home nortriptyline and PRN clonazepam Hypothyroidism (E03.9): Continue home levothyroxine Left main coronary artery disease (I25.10): Continue home aspirin and statin Aortic stenosis (I35.0): 4/6 systolic crescendo-decrescendo murmur present on physical exam. Patient asymptomatic for aortic stenosis. Being followed by outpatient cardiology. Declined valve replacement ? Case discussed with attending, Dr. Romero . Physical Exam Constitutional: 83 year old female, well appearing, alert, in no??acute distress. Mental Status: Oriented to person, place and time. Wifty Respiratory: Clear to auscultation. No wheezing, rales or rhonchi. Cardiovascular: Regular rhythm, mildly tachycardic. +Systolic murmur. No LE edema Gastrointestinal: Abdomen soft, nontender, nondistended. Normal to hyperactive bowel sounds. C tubedraining bilious drainage?? Extremities: Mildly tender posterior R knee, nontender calves bilaterally. No edema, erythema or overlying skin changes Neurologic: No focal deficits. Seen ambulatory with a steady gait Surgical Procedures ERCP with Biopsy 07/12/2023 16:40 Consultants GI General surgery Patient Education Titles Apixaban Oral Tablet?? Deep Vein Thrombosis (DVT)?? Vancomycin Oral Capsule?? Clostridium Difficile (C. Diff) Infection?? Pancreatitis?? Low-Fat Diet?? Follow-Up Appointments Added Follow Up ?Time Frame ?Comments Kelly STOVER, Jerman De León?Within two weeks?Please call to schedule a post hospitalization follow up Ana Fajardo MD?Within one week?Please call to arrangea 1-2 week follow up following discharge Patient Instructions Diagnosis: -Choledocholithiasis (stone in common bile duct), cholecystitis, pancreatitis -C. diff diarrhea -DVT in right popliteal vein ?? Important results/instructions: -Choledocholithiasis (stone in common bile duct)/cholecystitis/pancreatitis: You underwent a procedure called ERCP where they removed your gallstone from the common bile duct. This is what??caused??all the inflammation??in your pancreas.??On the repeat CAT scan of your abdomen, the obstruction had resolved but your pancreas continued to have significant inflammation.??This was treated with IV fluids, a clear liquid diet and pain medications.??The general surgery team followed up with you duringyour admission and you should follow up with Dr. Fajardo in??1-2 weeks for a??follow up to discuss further management of your??cholecystostomy tube. I recommend you continue a low fat diet.?? -C. diff diarrhea: This was originally diagnosed during your prior admission. You were discharged on an antibiotic called vancomycin. You will continue this upon discharge for an additional week. Please call your PCP if you start developing liquid or frequent stools following the discontinuation ofthis medication. You are at high risk for developing this infection in the future, especially if you are put on antibiotics for any reason. It is important to make your provider aware that you have had this infection in the past, and they may consider putting you on prophylactic treatment to prevent this. Be sure to wash your hands well to prevent spreading of this infection.?? -DVT in right popliteal vein:??This was shown on??an ultrasound. After??our discussion, you were started on a blood thinner called??Eliquis. You??will??take??10 mg twice??daily for??7??days, followed??by 5 mg??twice daily.??You should be??on this??for a minimum of three??months and can be??followedup??with your PCP for discontinuation. Being??on a blood thinner increases your risk of bleeding. Monitor for any bleeding in your stool or urine. If you hit your head, please come to the emergency department for evaluation. Please return to the emergency department??immediately??if your??pain??is??worse, there is??new??swelling in the leg, you??develop chest??pain, shortness??of breath, passing out??or??new dizziness.? Medication changes: -New: Eliquis 10 mg twice daily for 1 week, followed by 5 mg twice daily for at least 3 months;??Vancomycin capsule 125 mg take one capsule every 6 hours; oxycodone 2.5 mg as needed for pain; simethicone 80 mg 3 times daily as needed for gas pain ?? It was a pleasure caring for you, I am glad you are feeling better! Please follow up with your PCP in the next 1-2 weeks for a post-hospitalization follow up Post Discharge Care Diet: ??Low Fat 50 Gram Non Cardiac Diet ?? Activity: ??Ambulate as tolerated ?? Wound Care: ??None ?? Code Status: ??No Resuscitation ?? Condition: ??Fair ?? Discharge ?07/17/23 14:42:00 EST Discharge Prescriptions ?ePrescribed, 07/17/23 14:42:00 EST Home Health Face to Face *Denotes mandatory frank ?? *I certify that this patient is under my care and that I or an allowed non- physician working with me had a face to face encounter with the patient on this date:??07/17/2023 15:00 ?? *The encounter with the patient was in whole, or in part, for the following medical condition, which is the primary diagnosis(es) for home health care:??C. difficile diarrhea (A04.72) HTN (hypertension) (I10) Anxiety (F41.9) Hypothyroidism (E03.9) Left main coronary artery disease (I25.10) Abdominal pain (R10.9) Aortic stenosis (I35.0) Choledocholithiasis (K80.50) Orthostatic lightheadedness (R42) Pancreatitis (K85.90) DVT of popliteal vein (I82.439) Ruptured Bakers cyst (M66.0) ? *Select the indications for the discipline/s that are being arranged for this patient. Nursing (select all that apply): [_] None [_] Medication management (reconciliation, teaching)?? [x] Chronic disease management?? [_] Wound care and treatment?? [x] Home safety evaluation [_] Administer SQ/IM/IV medications?? [_] Cath care?? [_] Drain care?? [_] Trach or GT care?? Other _ Occupation Therapy (select all that apply): [_] None [_] ADL Management [_] Fall prevention training [_] Energy conservation [_] Cognitive training Other _ Physical Therapy (select all that apply): [_] None [x] Functional mobility training [x] Home exercise program to strengthen [_] Increase ROM?? [x] Falls prevention training [x] Home maintenance program for chronic disease Other _ Speech Therapy (select all that apply): [_] None [_] Swallow evaluation and training [_] Speech and language training [_] Cognitive training to process, organize, and/or recall information Other _ ? *Homebound due to (select all that apply): [_] Inability to leave home without assistance/supervision [_] Inability to ambulate without assistance [_] Pain [x] Decreased strength and endurance [_] Unsteady gait [_] Severe SOB and fatigue [_] Impaired transfers [_] Inability to negotiate stairs [_] Limited weight bearing [_] Mental status change? *Physician Signature:??Gillian GIANG ?? *By signing this, I certify that I have personally evaluated the patient and agree with the findings and recommendations as documented above. Results Discharge Labs BLOOD COUNT & DIFF WBC 13.3 k/mm3 (High)?? 07/17/2023 00:25 RBC 3.99 m/mm3 (Low)?? 07/17/2023 00:25 Hgb 11.1 Gm/dL (Low)?? 07/17/2023 00:25 Hct 35.1 % (Low)?? 07/17/2023 00:25 MCV 88.0 femtoliters ()?? 07/17/2023 00:25 MCH 27.8 pg ()?? 07/17/2023 00:25 MCHC 31.6 g/dL (Low)?? 07/17/2023 00:25 Platelet Count 304 k/mm3 ()?? 07/17/2023 00:25 RDW-SD 43.8 femtoliters ()?? 07/17/2023 00:25 MPV 9.7 femtoliters ()?? 07/17/2023 00:25 Nucleated RBC (Automated) 0.0 #/100 WBC'S ()?? 07/17/2023 00:25 Abs. NRBC 0.0 k/mm3 ()?? 07/17/2023 00:25 Abs. Neut 9.6 k/mm3 (High)?? 07/17/2023 00:25 Abs. Lymph 1.9 k/mm3 ()?? 07/17/2023 00:25 Abs. [place] 1.5 k/mm3 (High)?? 07/17/2023 00:25 Abs. Eo 0.2 k/mm3 ()?? 07/17/2023 00:25 Abs. Baso 0.1 k/mm3 ()?? 07/17/2023 00:25 Neut % 72.2 % ()?? 07/17/2023 00:25 Lymph % 14.2 % (Low)?? 07/17/2023 00:25 [place] % 11.3 % (High)?? 07/17/2023 00:25 Eos % 1.4 % ()?? 07/17/2023 00:25 Baso % 0.4 % ()?? 07/17/2023 00:25 Imm Gran 0.5 % ()?? 07/17/2023 00:25 Abs. Imm Gran 0.1 k/mm3 ()?? 07/17/2023 00:25 ?? CHEM GENERAL Sodium 140 mmol/L ()?? 07/17/2023 00:25 Potassium 4.0 mmol/L ()?? 07/17/2023 00:25 Chloride 104 mmol/L ()?? 07/17/2023 00:25 Bicarbonate Level 24 mmol/L ()?? 07/17/2023 00:25 Anion Gap 12 ()?? 07/17/2023 00:25 Glucose Level 81 mg/dL ()?? 07/17/2023 00:25 BUN 4 mg/dL (Low)?? 07/17/2023 00:25 Creatinine-Blood 0.5 mg/dL ()?? 07/17/2023 00:25 Estimated GFR Creatinine 93 ML/MIN/1.73 M2 ()?? 07/17/2023 00:25 Calcium 8.9 mg/dL ()?? 07/10/2023 02:58 Calcium, Ionized pH Corrected 1.15 mmol/L ()?? 07/11/2023 08:24 Phosphorus 2.7 mg/dL ()?? 07/15/2023 07:36 Magnesium 1.9 mg/dL ()?? 07/17/2023 00:25 Protein, Total 4.9 Gm/dL (Low)?? 07/14/2023 06:19 Albumin 3.0 Gm/dL (Low)?? 07/14/2023 06:19 AG Ratio 1.9 ()?? 07/10/2023 02:58 Alkaline Phosphatase 118 units/L (High)?? 07/15/2023 07:36 Lipase 30 units/L ()?? 07/16/2023 00:37 AST (SGOT) 15 units/L ()?? 07/15/2023 07:36 ALT (SGPT) 9 units/L ()?? 07/15/2023 07:36 Bilirubin, Total 0.4 mg/dL ()?? 07/15/2023 07:36 Bilirubin, Direct <0.2 mg/dL ()?? 07/14/2023 06:19 Bilirubin, Indirect Direct bilirubin is less than the measureable limit. Therefore, indirect mg/dL ()?? 07/14/2023 06:19 Lactate 0.9 mmol/L ()?? 07/10/2023 02:58 ?? COAG INR 1.2 (High)?? 07/12/2023 06:14 Protime (PT) 12.3 seconds (High)?? 07/12/2023 06:14 ?? HEME OTHER Hold Blue Top SPECIMEN DISCARDED AFTER 4 HOURS. ()?? 07/10/2023 02:58 ? LIPID STUDIES Triglycerides 73 mg/dL ()?? 07/11/2023 08:24 ? SEROLOGY INF DISEASE C.difficile Toxin Negative. C.Difficile bacterial antigen and toxin not detected. A (N)?? 07/14/2023 09:54 ? URINE OTHER Est Creatinine Clearance 69.25 mL/min ()?? 07/17/2023 02:19 ? Microbiology ?? C. difficile Rapid Toxin Assay?? Completed?? Source: Stool Body Site: ?? Collected Dt/Tm: 07/14/2023 09:54 Last Updated Dt/Tm: 07/14/2023 21:05 ? Imaging(s) ?US Doppler Ext Lower Venous Right ?? 07/17/2023 11:20??by Radha Robertson MD ?IMPRESSION: ?? Occlusive thrombus of both of the paired posterior tibial veins measuring greater than 5 cm in length. ?? Fluid collections within the right popliteal fossa measuring up to 4.3 cm and the medial right calfmeasuring up to 6.4 cm. Findings may represent a ruptured Diaz's cyst, although communication between these two collections cannot be definitively proven on the current study. ?CT Abd/Pelvis W/ IV Contrast Only ?? 07/16/2023 08:41??by Arcadio Grande MD ?IMPRESSION: ?? Compared to 07/10/2023: ?? Increased diffuse fat stranding and inflammatory changes surrounding the pancreas, concerning for worsening pancreatitis. No loculated fluid collection. ?? Decrease in common bile duct diameter status post ERCP with stone removal. ?? Persistent mild thickening of the duodenum, likely reactive from the adjacent pancreatitis. ?? Cholecystostomy tube in place with decompressed gallbladder and trace pericholecystic stranding. ?? Unchanged endometrial thickening measuring 1.1 cm. Nonemergent follow-up with pelvic ultrasound still suggested. ?? Partially visualized increased small bilateral pleural effusions with associated atelectasis. ?CT Abd/Pelvis W/ IV Contrast Only ?? 07/10/2023 04:27??by Mary Bar MD ?IMPRESSION: ?? 1. Findings consistent with acute interstitial pancreatitis, with a small hypodense filling defect at the distal common bile duct,? Calculus versus debris., However the pancreatic duct is not dilatedat this time. 2. Mild patchy airspace opacities in bilateral lung bases new from the prior study, could be related to atelectasis although developing pneumonia is not excluded. 3. Previously suspected diverticulitis appears to have resolved. 4. Unchanged appearance of percutaneous transhepatic biliary drain within the gallbladder, with mild reactive mucosal enhancement and mild adjacent duodenitis, likely reactive. 5. Unchanged endometrial thickening measuring 1.1 cm, ultrasound follow-up is recommended ? 55??minutes spent on discharge * Radha Baer RN: PERFORM Event Display: Patient Education/Instruction Authored Date: [id number] Inpatient Adult Discharge Instructions [address] [address] Name: JHONNY SHARP : 1940 Visit: 07/10/2023 09:43:00 Current Date: 07/17/2023 16:21 Account: [id number] Inpatient Adult Discharge Instructions We would like [...] and their families. Surveys are administered by [employer] ?? If further treatment with your primary care physician or another doctor is recommended, it is important for you to keep the appointment. Call your primary care physician or return to the Emergency Department immediately if your condition worsens, fails to improve, or new symptoms develop. If you need to find a doctor, you can call [facility] Link for a referral at [phone] or toll free at [phone] - innovate | mentor | [email or web address] ([phone]) or log in to [email or web address].. ?? [facility], in keeping with [facility] guidance, no longer requires face masks [...] a health care edita of your choosing. [employer] is a website that allows you to securely view your medical information including your hospital discharge summary, office visit summaries, medications and follow-up visits. You can also request appointments, renew medications, and request access to your medical information using a health care edita of your choosing, or just ask a question. You can enroll at [email or web address] or register during your next office visit. You have been discharged from [facility], Patient Care Unit: D6A. If you have any questions regarding these instructions after you leave, please call us and we will be happy to assist you. [facility] Your Care Team Attending Physician Heather STOVER, Flakito Consulting Providers Jonna STOVER, Inocencio Discharging Providers Gillian Liu Reason for Admission Pt coming from home with chief complaint of upper quadrant abdominal pain. Pt denied NVD. Pt statedthat she had a drain put in for her gallbladder removal 2 weeks ago. Pt states that the pain started a couple of days ago. Pt experiences pain upon palpati Your Diagnosis Abdominal pain HTN (hypertension) Anxiety Hypothyroidism Left main coronary artery disease Choledocholithiasis Pancreatitis Aortic stenosis Orthostatic lightheadedness C. difficile diarrhea DVT of popliteal vein Ruptured Bakers cyst Tests Performed Below is a partial list of the tests performed during your hospitalization. You may have had other tests and procedures not included in this list. Please discuss all test results with your provider. Alk Phos ALT AST Bilirubin Total BUN C. difficile Rapid Toxin Assay CBC CBC w/ Differential Comprehensive Metabolic Panel Creatinine DIFFERENTIAL Electrolytes Glucose Level Hepatic Function Panel Hold Blue Top Tube INR Ionized Calcium Lactic Acid Level LFT's Lipase Magnesium Level Phosphorus Level Triglycerides CT Abd/Pelvis W/ IV Contrast Only Doppler Ext Lower Venous Right (US) KUB MRI Abdomen W/O Contrast XR ERCP Biliary Only Primary Care Provider Kelly STOVER, Jerman De León Advance Directive Health Care Proxy on File Yes - Health Care Proxy Discharge Vitals Temperature: 98 DegF Height: 158 cm Pulse Rate:??98 bpm??High Weight: 67.8 kg Respiratory Rate: 18 br/min Body Mass Index:??27.16 kg/m2??High Systolic Blood Pressure:??144 mm Hg??High Body surface area: 1.73 Diastolic Blood Pressure: 71 mm Hg ?? Oxygen Saturation: 97 % ?? Studies Pending All tests and labs ordered during this hospital stay have been completed unless listed below. Please discuss all pending results with your provider listed above in these instructions. ?? Add On Lab Order Urinalysis w/hold for Urine Culture What to do next Instructions From Your Doctor Diagnosis: -Choledocholithiasis (stone in common bile duct), cholecystitis, pancreatitis -C. diff diarrhea -DVT in right popliteal vein ?? Important results/instructions: -Choledocholithiasis (stone in common bile duct)/cholecystitis/pancreatitis: You underwent a procedure called ERCP where they removed your gallstone from the common bile duct. This is what??caused??all the inflammation??in your pancreas.??On the repeat CAT scan of your abdomen, the obstruction had resolved but your pancreas continued to have significant inflammation.??This was treated with IV fluids, a clear liquid diet and pain medications.??The general surgery team followed up with you duringyour admission and you should follow up with Dr. Fajardo in??1-2 weeks for a??follow up to discuss further management of your??cholecystostomy tube. I recommend you continue a low fat diet.?? -C. diff diarrhea: This was originally diagnosed during your prior admission. You were discharged on an antibiotic called vancomycin. You will continue this upon discharge for an additional week. Please call your PCP if you start developing liquid or frequent stools following the discontinuation ofthis medication. You are at high risk for developing this infection in the future, especially if you are put on antibiotics for any reason. It is important to make your provider aware that you have had this infection in the past, and they may consider putting you on prophylactic treatment to prevent this. Be sure to wash your hands well to prevent spreading of this infection.?? -DVT in right popliteal vein:??This was shown on??an ultrasound. After??our discussion, you were started on a blood thinner called??Eliquis. You??will??take??10 mg twice??daily for??7??days, followed??by 5 mg??twice daily.??You should be??on this??for a minimum of three??months and can be??followedup??with your PCP for discontinuation. Being??on a blood thinner increases your risk of bleeding. Monitor for any bleeding in your stool or urine. If you hit your head, please come to the emergency department for evaluation. Please return to the emergency department??immediately??if your??pain??is??worse, there is??new??swelling in the leg, you??develop chest??pain, shortness??of breath, passing out??or??new dizziness.? Medication changes: -New: Eliquis 10 mg twice daily for 1 week, followed by 5 mg twice daily for at least 3 months;??Vancomycin capsule 125 mg take one capsule every 6 hours; oxycodone 2.5 mg as needed for pain; simethicone 80 mg 3 times daily as needed for gas pain ?? It was a pleasure caring for you, I am glad you are feeling better! Please follow up with your PCP in the next 1-2 weeks for a post-hospitalization follow up Discharge Orders Diet:??Low Fat 50 Gram Non Cardiac Diet Activity:??Ambulate as tolerated Wound Care:??None Code Status:?? No Resuscitation Condition:??Fair Scheduled Follow-Up Appointments Sunday 8:30 AM EST ?? Where: Interventional Radiology Status: Pending You Need to Schedule the Following Appointments Follow Up with??Kelly STOVER, Jerman De León When:??Within Within two weeks Why: Please call to schedule a post hospitalization follow up Where: [address] [place] [address]- Follow Up with??Scotty STOVER, Ana When:??Within Within one week Why: Please call to arrange a 1-2 week follow up following discharge Where: [address] [facility] [place] [address]- Discharge Medications JHONNY SHARP :1940 Visit Date:07/10/2023 Medications: Please continue your medications until treatment is completed or stopped by your provider. Medications not listed below should be discontinued. Discuss any questions related to medications with your provider. What How Much When Instructions Next Dose New apixaban (Eliquis Starter Pack 5 mg oral tablet) 2 tab(s) Oral Twice a day Duration: 7 Days followed by 1 tablet by mouth twice daily for 23 days; as directed on package labeling; will need to follow up with PCP for refills ?? Pickup at [place] [address] 07/17/23 9PM New Oxycodone (oxyCODONE 5 mg oral tablet) 2.5 Milligram Oral Every 6 hours as needed for Pain , Moderate Duration: 4 Days Pickup at [place] [address] NEEDED New Simethicone (simethicone 80 mg oral tablet, chewable) 1 tab(s) Chew 3 times a day as needed for Gas Duration: 14 Days Pickup at [place] [address] NEEDED New Vancomycin (vancomycin 125 mg oral capsule) 1 capsule Oral Every 6 hours Duration: 7 Days Pickup at [place] [address] 07/17/23 6:30PM Unchanged Aspirin (aspirin 81 mg oral delayed release tablet) 1 tab(s) Oral Daily 07/18/23 9AM Unchanged Carvedilol (Coreg 25 mg oral tablet) 0.5 tab(s) Oral Twice a day Duration: 30 Days Pt is on Nebivolol 10 mg po daily. Conversion is Coreg 25 bid. May adjust dose per evidence. ?? 07/17/23 9PM Unchanged Cholecalciferol (cholecalciferol 1000 intl units oral tablet) 1 tab(s) Oral Daily 07/18/23 9AM Unchanged Clonazepam (clonazePAM 0.5 mg oral tablet) 1 tab(s) Oral Twice a day Duration: 2 Days 07/17/23 9PM Unchanged Docusate (Docusate Sodium Capsule) 100 Milligram Oral Twice a day as needed for Constipation NEEDED Unchanged Levothyroxine (levothyroxine 75 mcg (0.075 mg) oral tablet) 1 tab(s) Oral Daily 07/18/23 7AM Unchanged Multivitamin (Super B Complex Vitamin B Complex oral tablet) 1 tab(s) Oral Daily 07/18/23 9AM Unchanged Nortriptyline (nortriptyline 50 mg oral capsule) 1 capsule Oral Daily 07/18/23 9AM Unchanged Simvastatin (simvastatin 40 mg oral tablet) 1 tab(s) Oral Daily at Bedtime 07/17/23 9PM Pharmacy Information [facility] 3: [address], [place] [id number] [phone] Test Results Below is a partial list of the most recent Laboratory test results done prior to this discharge. You may have had other tests and procedures not included in this list. Please discuss all test resultswith your provider. Est Creatinine Clearance - 69.25 mL/min (07/17/2023) Alk Phos (07/15/2023) ???Alkaline Phosphatase - 118 units/L ALT (07/15/2023) ???ALT (SGPT) - 9 units/L AST (07/15/2023) ???AST (SGOT) - 15 units/L Bilirubin Total (07/15/2023) ???Bilirubin, Total - 0.4 mg/dL BUN (07/17/2023) ???BUN - 4 mg/dL C. difficile Rapid Toxin Assay (07/14/2023) ???C.difficile Toxin - Negative. C.Difficile bacterial antigen and toxin not detected. A CBC (07/16/2023) ???WBC - 14.5 k/mm3???RBC - 3.77 m/mm3???Hgb - 10.7 Gm/dL???Hct - 32.7 %???MCV - 86.7 femtoliters???MCH - 28.4 pg???MCHC - 32.7 g/dL???Platelet Count - 306 k/mm3???RDW-SD - 42.4 femtoliters???MPV - 9.6 femtoliters???Nucleated RBC (Automated) - 0.0 #/100 WBC'S???Abs. NRBC - 0.0 k/mm3 CBC w/ Differential (07/17/2023) ???WBC - 13.3 k/mm3???RBC - 3.99 m/mm3???Hgb - 11.1 Gm/dL???Hct - 35.1 %???MCV - 88.0 femtoliters???MCH - 27.8 pg???MCHC - 31.6 g/dL???Platelet Count - 304 k/mm3???RDW-SD - 43.8 femtoliters???MPV - 9.7 femtoliters???Nucleated RBC (Automated) - 0.0 #/100 WBC'S???Abs. NRBC - 0.0 k/mm3???Abs. Neut - 9.6 k/mm3???Abs. Lymph - 1.9 k/mm3???Abs. [place] - 1.5 k/mm3???Abs. Eo - 0.2 k/mm3???Abs. Baso - 0.1 k/mm3???Neut % - 72.2 %???Lymph % - 14.2 %???[place] % - 11.3 %???Eos % - 1.4 %???Baso % - 0.4 %???Imm Gran - 0.5 %???Abs. Imm Gran - 0.1 k/mm3 Comprehensive Metabolic Panel (07/10/2023) ???Sodium - 138 mmol/L???Potassium - 4.2 mmol/L???Chloride - 104 mmol/L???Bicarbonate Level - 23 mmol/L???Anion Gap - 11???Glucose Level - 126 mg/dL???BUN - 9 mg/dL???Creatinine-Blood - 0.6 mg/dL???Estimated GFR Creatinine - 88 ML/MIN/1.73 M2???Calcium - 8.9 mg/dL???Protein, Total - 6.1 Gm/dL???Albumin - 4.0 Gm/dL???AG Ratio - 1.9???Alkaline Phosphatase - 339 units/L???AST (SGOT) - 98 units/L???ALT (SGPT) - 53 units/L???Bilirubin, Total - 0.5 mg/dL Creatinine (07/17/2023) ???Creatinine-Blood - 0.5 mg/dL???Estimated GFR Creatinine - 93 ML/MIN/1.73 M2 DIFFERENTIAL (07/16/2023) ???Abs. Neut - 10.9 k/mm3???Abs. Lymph - 2.1 k/mm3???Abs. [place] - 1.6 k/mm3???Abs. Eo - 0.1 k/mm3???Abs. Baso - 0.1 k/mm3???Neut % - 73.3 %???Lymph % - 14.3 %???[place] % - 10.6 %???Eos % - 0.9 %???Baso % - 0.5 %???Imm Gran - 0.4 %???Abs. Imm Gran - 0.1 k/mm3 Electrolytes (07/17/2023) ???Sodium - 140 mmol/L???Potassium - 4.0 mmol/L???Chloride - 104 mmol/L???Bicarbonate Level - 24 mmol/L???Anion Gap - 12 Glucose Level (07/17/2023) ???Glucose Level - 81 mg/dL Hepatic Function Panel (07/14/2023) ???Protein, Total - 4.9 Gm/dL???Albumin - 3.0 Gm/dL???Alkaline Phosphatase - 119 units/L???AST (SGOT) - 11 units/L? ?ALT (SGPT) - 11 units/L? ?Bilirubin, Total - 0.4 mg/dL? ?Bilirubin, Direct - <0.2 mg/dL???Bilirubin, Indirect - Direct bilirubin is less than the measureable limit. Therefore, indirect Hold Blue Top Tube (07/10/2023) ???Hold Blue Top - SPECIMEN DISCARDED AFTER 4 HOURS. INR (07/12/2023) ???INR - 1.2???Protime (PT) - 12.3 seconds Ionized Calcium (07/11/2023) ???Calcium, Ionized pH Corrected - 1.15 mmol/L Lactic Acid Level (07/10/2023) ???Lactate - 0.9 mmol/L LFT's (07/11/2023) ???Protein, Total - 5.7 Gm/dL???Albumin - 3.3 Gm/dL???Alkaline Phosphatase - 208 units/L???AST (SGOT) - 32 units/L? ?ALT (SGPT) - 27 units/L? ?Bilirubin, Total - 0.5 mg/dL? ?Bilirubin, Direct - <0.2 mg/dL???Bilirubin, Indirect - Direct bilirubin is less than the measureable limit. Therefore, indirect Lipase (07/16/2023) ???Lipase - 30 units/L Magnesium Level (07/17/2023) ???Magnesium - 1.9 mg/dL Phosphorus Level (07/15/2023) ???Phosphorus - 2.7 mg/dL Triglycerides (07/11/2023) ???Triglycerides - 73 mg/dL Immunizations This Visit Not Given Vaccine Commentsinfluenza virus vaccine, inactivated Patient Refuses Allergies (NKA means No Known Allergies) penicillin Problems Active Problems??(4) Anxiety?? HTN (hypertension)?? Hypothyroidism?? Left main coronary artery disease?? Education Materials Below is the list of Educational Leaflet Providered with your Discharge Instructions. Apixaban Oral Tablet?? Deep Vein Thrombosis (DVT)?? Vancomycin Oral Capsule?? Clostridium Difficile (C. Diff) Infection?? Pancreatitis?? Low-Fat Diet?? Valuables and Belongings I fully understand and agree that [facility] accepts no responsibility for all my personal [...] Review of Valuable and Belonging List: With patient, With witness Date for Pt to Sign Valuables/Belongings: 07/12/23 15:38:00 ?? Valuables & Belongings ?? Clothes Electronic devices Jewelry Monetary Items Personal devices Miscellaneous Medications (Valuables) Valuables at Bedside Jacket, Pants, Shirt, Shoes, Undergarments ? Dentures, upper, Glasses ? Valuables Sent Home ? Valuables Sent to Security ? Other Discharge Information ? Case Management Discharge Plan?? Discharge Plan?? Discharge Agency Information?? Discharge Level of Care at Discharge: Homehealth/VNA Name of Agency #1: [facility] [place] Discharge [facility] [place] Service Categories #1: Physical Therapy, Retirement ?? Service Comments #1: [employer] will contact you to set up a time to meet. [facility] . ?? Pulmonary Rehab Status?? Pulmonary Rehab Discharge Status?? Respiratory Rate: 18 br/min ? Common Emergency Awareness Tips IS [...] are strongly encouraged to quit. Please call [facility] [employer] at [phone] or [phone]) or log in to [email or web address] for referrals to smoking cessation programs. ?? 832 Suicide & Crisis Lifeline is available 08/01 if you or someone you know needs to find a reason to keep living. By calling 013 you'll be connected to a skilled, trained counselor at a crisis center in your area. INPATIENT DISCHARGE INSTRUCTIONS SIGNATURE PAGE JHONNY SHARP Location:[facility] Registration Date and Time:07/10/2023 09:43 EST Primary Care Physician: Kelly STOVER, Jerman De León, Attending Physician: Heather STOVER, Flakito, I JHONNY SHARP, have received the above patient education materials/instructions and have verbalized understanding. If ambulance or transport services are being used I further acknowledge being given a choice of service. ?? If you need to contact me, please call me at this number: . Patient/Cardiology Clinical Nurse Specialist Name: Patient/Cardiology Clinical Nurse Specialist Signature: Relationship to Patient: Witness Name/Signature: Date: * Gillian Liu: PERFORM Event Display: Patient Education Leaflets Authored Date: [id number] Apixaban Oral Tablet ?? [id number] Apixaban Oral Tablet Brands: Eliquis Uses This medicine is used for the following purposes: ??? blood disorder ??? prevent blood clots ??? treatment of blood clots ??? blood clot ?? Instructions This medicine may be taken with or without food. This medicine will work best if you take it at about the same time every day. Store at room temperature away from heat, light, and moisture. Do not keep in the bathroom. It is important that you keep taking each dose of this medicine on time even if you are feeling well. If you forget to take a dose on time, take it as soon as you remember. If it is almost time for thenext dose, do not take the missed dose. Return to your normal schedule. Do not take 2 doses at one time. Drug interactions can change how medicines work or increase risk for side effects. Tell your healthcare providers about all medicines taken. Include prescription and ibzl-rca-wyhlhup medicines, vitamins, and herbal medicines. Speak with your doctor or pharmacist before starting or stopping any medicine. Talk to your doctor before taking other medicines, including aspirins and ibuprofen containing products. Speak to your doctor about which medicines are safe to use while you are on this medicine. It is very important that you follow your doctor's instructions for all blood tests. ?? Cautions This medicine may cause serious bleeding problems in patients taking blood thinner medications. Follow your doctor's instructions carefully to monitor your blood lab tests if you are on blood thinners. Tell your doctor and pharmacist if you ever had an allergic reaction to a medicine. This medicine may cause serious bleeding from the stomach or bowels. Stop this medicine and call your doctor immediately if you see any signs of bleeding. Bleeding can cause pain in the stomach, vomiting up liquid that looks like coffee grounds, and red or dark tarry stools. There is an increased risk of bleeding while on this medicine, please tell your doctor or nurse if you notice any excessive bleeding or bruising. Do not use the medication any more than instructed. Please check with your doctor before drinking alcohol while on this medicine. Do not breastfeed while on this medicine. This medicine can hurt a new baby in the womb. If you become while on this medicine, tell your doctor immediately. Your doctor may switch you to a different medicine. Do not take Yamila's wort while on this medicine. Do not share this medicine with anyone who has not been prescribed this medicine. Some patients have serious side effects from this medicine. Ask your pharmacist to show you the information from the Food and Drug Administration (FDA) and discuss it with you. Always refill this medicine before it runs out. ?? Side Effects The following is a list of some common side effects from this medicine. Please speak with your doctor about what you should do if you experience these or other side effects. ??? nosebleeds Call your doctor or get medical help right away if you notice any of these more serious side effects: ??? bleeding or bruising ??? coughing up blood or vomit that looks like coffee grounds ??? fainting??? numbness or tingling in hands and feet ??? severe or persistent headache ??? sudden leg pain, swelling, warmth or redness ??? loss of movement anywhere on the body ??? shortness of breath ??? bloody or dark, tarry stools ??? symptoms of stroke (such as one-sided weakness, slurred speech, confusion) ??? difficulty swallowing ??? unusual or unexplained tiredness or weakness ??? blood in urine ??? blurring or changes of vision A few people may have an allergic reaction to this medicine. Symptoms can include difficulty breathing, skin rash, itching, swelling, or severe dizziness. If you notice any of these symptoms, seek medical help quickly. ?? Extra Please speak with your doctor, nurse, or pharmacist if you have any questions about this medicine. ?? [email or web address]/[email or web address]/fdbpem/[email or web address] IMPORTANT NOTE: This document tells you briefly how to take your medicine, but it does not tell youall there is to know about it. Your doctor or pharmacist may give you other documents about your medicine. Please talk to them if you have any questions. Always follow their advice. There is a more complete description of this medicine available in [place]. Scan this code on your smartphone or tablet or use the web address below. You can also ask your pharmacist for a printout. If you have any questions, please ask your pharmacist. The display and use of this drug information is subject to Terms of Use. Copyright(c) 2022 [employer]. ?? [employer]. All rights reserved. This information is not intended as a substitute for professional medical care. Always follow your healthcare professional's instructions. ?? * Gillian Liu: PERFORM Event Display: Patient Education Leaflets Authored Date: [id number] Deep Vein Thrombosis (DVT) ?? [id number] Deep Vein Thrombosis (DVT) Deep vein thrombosis (DVT) occurs when a blood clot (thrombus) forms in a deep vein. This happens most often in the leg. It can also happen in the arms or other parts of the body. A part of the clot called an embolus can break off and travel to the lungs. When this happens, it???s called a pulmonary embolism (PE). PE is a medical emergency. It can cut off blood flow and lead to . Both DVT and PE are closely related. Together, they are often referred to by the term venous thromboembolism (VTE). Risk factors for DVT Anything that slows blood flow, injures the lining of a vein, or increases blood clotting can make you more prone to having DVT. This includes the following: ??? Long periods without movement (such as when sitting for many hours at a time or when recovering from major surgery or illness) ??? Estrogen (female hormone) therapy, such as hormone replacement therapy (HRT) or control pills ??? Fractured hip or leg ??? Major surgery or joint replacement ??? Major trauma or spinal cord injury ???Cancer ??? Family history ??? Excess weight or obesity ??? Smoking ??? Older age ??? Past history of a DVT ??? Inherited clotting disorders ?? Symptoms DVT does not always cause symptoms. When symptoms do occur, they may appear around the site of the DVT, such as in the leg. Possible symptoms include: ??? Swelling ??? Pain ??? Warmth ??? Redness ???Tenderness ?? Home care ??? You were likely prescribed blood thinners (anticoagulants). They may be given as pills (oral) or shots (injections). Follow all instructions when using these medicines. Note: Don't takeblood thinners with other medicines, herbal remedies, or supplements without talking to your provider first. Certain medicines or products can affect how blood thinners work. ??? Follow your provider???s instructions about activity and rest. ??? If support or compression stockings are prescribed, wear them as directed. These may help improve blood flow in the legs. ??? When sitting or lying down,move your ankles, toes and knees often. This may also help improve blood flow in the legs. ?? Follow-up care Follow up with your healthcare provider, or as advised. If imaging tests were done, they may need further review by a doctor. You will be told of any new findings that may affect your care. ?? When to get medical advice Call your healthcare provider right away if any of these occur: ??? New or increased swelling, pain, soreness, warmth, or redness, in the leg, arm, or other area ??? Blood in the urine ??? Bleeding with bowel movements ?? Call 911 Call 911??if any of these occur: ??? Bleeding from the nose, gums, a cut, or vagina ??? Heavy or uncontrolled bleeding ??? Trouble breathing ??? Chest pain or discomfort that worsens with deep breathing or coughing ??? Coughing (may cough up blood) ??? Fast heartbeat ??? Sweating ??? Anxiety ??? Lightheadedness, dizziness, or fainting ?? Last Reviewed Date: 2021 ?? 9389-2838 [employer]. All rights reserved. This information is not intended as a substitute for professional medical care. Always follow your healthcare professional's instructions. ?? * Gillian Liu: PERFORM Event Display: Patient Education Leaflets Authored Date: [id number] Vancomycin Oral Capsule ?? [id number] Vancomycin Oral Capsule Brands: Vancocin Uses For treating bacterial infection. ?? Instructions Keep the medicine at room temperature. Avoid heat and direct light. If you forget to take a dose on time, take it as soon as you remember. If it is almost time for thenext dose, do not take the missed dose. Return to your normal schedule. Do not take 2 doses at one time. Tell your doctor and pharmacist about all your medicines. Include prescription and ppmf-hak-nbiqspdtivbeywwa, vitamins, and herbal medicines. Keep using this medicine for the full number of days that it is prescribed. Do not stop the medicine even if you start to feel better. ?? Cautions Tell your doctor and pharmacist if you ever had an allergic reaction to a medicine. Do not use the medication any more than instructed. Contact your doctor if you notice a change in the amount or darkening of your urine. Tell the doctor or pharmacist if you are , planning to be , or . Do not start or stop any other medicines without first speaking to your doctor or pharmacist. Do not share this medicine with anyone who has not been prescribed this medicine. ?? Side Effects The following is a list of some common side effects from this medicine. Please speak with your doctor about what you should do if you experience these or other side effects. ??? diarrhea ??? nausea and vomiting ??? stomach upset or abdominal pain Call your doctor or get medical help right away if you notice any of these more serious side effects: ??? bleeding or bruising ??? severe, watery or bloody diarrhea ??? ear problems (ringing in the ears, hearing loss) ??? fever ??? signs of kidney damage (such as change in urine color or bubbly urine) ??? swelling in the neck or throat ??? increased urinary frequency ??? urinating less often A few people may have an allergic reaction to this medicine. Symptoms can include difficulty breathing, skin rash, itching, swelling, or severe dizziness. If you notice any of these symptoms, seek medical help quickly. ?? Extra Please speak with your doctor, nurse, or pharmacist if you have any questions about this medicine. ?? [email or web address].[email or web address]/fdbpem/9154 IMPORTANT NOTE: This document tells you briefly how to take your medicine, but it does not tell youall there is to know about it. Your doctor or pharmacist may give you other documents about your medicine. Please talk to them if you have any questions. Always follow their advice. There is a more complete description of this medicine available in [place]. Scan this code on your smartphone or tablet or use the web address below. You can also ask your pharmacist for a printout. If you have any questions, please ask your pharmacist. The display and use of this drug information is subject to Terms of Use. Copyright(c) 2022 [employer]. ?? [employer]. All rights reserved. This information is not intended as a substitute for professional medical care. Always follow your healthcare professional's instructions. ?? * Dacia Rivera RN: VERIFY, PERFORM, SIGN Event Display: Nursing Discharge Status Report Authored Date: Patient: JHONNY SHARP Age: 83 years Sex: Female : 1940 Associated Diagnoses: None Author: Dacia Rivera RN Findings Narrative/Incidental A/Ox3. Very anxious. LS dim. IV fluid on. clear fluids tolerated well. Small soft dirrhea x3 early night. Pain meds given. +effect. drain -minimal greenish out put. Slept well through the night. Safety and comfort maintained. . Patient Care team information Care Team Personnel Name: Howie Brown RN Position: [facility] RN Member Role: Primary Care Nurse Name: Arianna Cali RN Position: [facility] RN Member Role: Primary Care Nurse Name: Bhavana Camacho RN Position: [facility] RN Member Role: Primary Care Nurse Name: Shannon Weeks RN Position: [facility] RN Member Role: Primary Care Nurse Name: Gracy Wu RN Position: [facility] RN Member Role: Primary Care Nurse Name: Alma Gray RN Position: [facility] RN Member Role: Primary Care Nurse Name: Luana Odonnell RN Position: [facility] RN Member Role: Primary Care Nurse Name: Bebeto Gallegos RN Position: [facility] RN Member Role: Primary Care Nurse Name: Kelly STOVER, Jerman De León Position: Reference Physician Member Role: PCP Address: Address: [address] [place], [place] - Name: Lacey Black Position: [facility] PABLO w/ [employer] Repairer Member Role: Nursing Care Team Related Persons Name: KENJI MADISYN Address: home [address] [place], [place] Name: ALE SHARP Address: home [address] [place], [place] Name: ARTEM SHARP Address: home SAME PT"
--- OUTSIDE RECORDS SUMMARY | 2023-09-17 14:06 | XMS_ITS | Continuity of Care Document ---
Author Name Unknown Organization [facility] ter Address [address] [place] [id number]- Care Team Providers Care Work Car Operator Name Role Phone Kelly STOVER, Jerman De León Primary Care Physic gerhard Encounter [facility] Date(s): 06/20/23 - 07/20/[address] [address]- Attending Physician: Not on Staff, Attending MD Admitting Physician: Not on Staff, Admitting MD Referring Physician: Not on Staff, Referring [...] 74 tablet, 0 Refills,Maintenance, 07/17/23 12:55:00 EST, [facility]... Start Date: 07/17/23 Stop Date: [...] 07/17/23 12:54:00 EST, Route to Pharmacy Electronically, [facility], Partial fill upon patient request... Start Date: 07/17/23 Stop Date: 07/21/23 Status: Ordered simethicone 80 mg oral tablet, chewable 80 mg, 1, tablet, Chew, 3 times a day, PRN, for 14 days, # 36 tablet, Refills 0, Tot. Refills 0, Acute 07/31/23 12:56:00 EST, Gas, 07/17/23 12:56:00 EST, Route to Pharmacy Electronically, [facility], Partial fill upon patient [...] 07/24/23 12:54:00 EST, 07/17/23 12:54:00 EST, Capsule, [facility], Partial fill upon patient [...] Care Nurse Name: Arianna Cali RN Position: [facility] RN Member Role: Primary Care Nurse Name: Bhavana Camacho RN Position: S RN Member Role: Primary Care Nurse Name: Shannon Weeks RN Position: S RN Member Role: Primary Care Nurse Name: Gracy Wu RN Position: S RN Member Role: Primary Care Nurse Name: Alma Gray RN Position: S RN Member Role: Primary Care Nurse Name: Luana Odonnell RN Position: S RN Member Role: Primary Care Nurse Name: Bebeto Gallegos RN Position: S RN Member Role: Primary Care Nurse Name: Jerman Mendoza MD Position: Reference Physician Member Role: PCP Address: Address: [address] [place], [place] - Care Team Related Persons Name: MADISYN PHILLIP Address: home [address] [place], [place] Name: ALE ADAM Address: home [address] [place], [place] Name: ARTEM ADAM Address: home SAME PT
--- OUTSIDE RECORDS SUMMARY | 2023-09-17 14:06 | XMS_ITS | Continuity of Care Document ---
Author Name Unknown Organization [facility] Address [address] [place] [id number] Care Team Providers Care Director Of Vocational Training Name Role Phone Kelly STOVER, Jerman De León Primary Care Physic gerhard Encounter [facility] Date(s): 06/28/23 - 07/02/[address] [address]- Encounter Diagnosis Diverticulitis(Final) - 06/28/23 Diarrhea(Final) - 06/28/23 Fever(Final) - 06/28/23 Discharge Disposition: A-Transfer VNA/Home Health Attending Physician: Marilia Murray MD Admitting Physician: Kristina Granados DO Referring Physician: Not on Staff, Referring [...] oral tablet 12.5 mg, Tablet, By Mouth, 07/01/23 21:00:00 EST Start Date: 07/01/23 Stop Date: 07/01/23 Status: Completed Coreg 25 mg oral tablet 12.5 mg, Tablet, By Mouth, 07/02/23 9:00:00 EST Start Date: 07/02/23 Stop Date: 07/02/23 Status: Completed Docusate Sodium Capsule 100 mg, [...] opioid drug. Start Date: 08/14/22 Status: Ordered metroNIDAZOLE 500 mg oral tablet 1 tablet = 500 mg, By Mouth, Every 8 hours, for 8 days, do not drink alcohol may take with food to minimize abdominal discomfort, # 24 tablet, 0 Refills, Acute 07/09/23 14:46:00 EST, 07/01/23 14:46:00 EST, Tablet, [id number], Partial fill u... Start Date: 07/01/23 Stop Date: 07/09/23 Status: Ordered nortriptyline 50 mg oral capsule [...] mg, By Mouth, Every 6 hours, for 13 days, Doses over 125 mg require ID consult. Indication for Use: C. difficile colitis, # 52 capsule, 0 Refills, Acute 07/14/23 14:45:00 EST, 07/01/23 14:45:00 EST, Capsule, [id number], Partial... Start Date: 07/01/23 Stop Date: 07/14/23 Status: Ordered Problem List Condition Confirmation Course Effective Dates Status H ealth Status Informant Anxiety Confirmed Active HTN (hypertension) Confirmed Active Hypothyroidism Confirmed Active Left main coronary artery disease Confirmed Active Results Orders for Microbiology Reports Name Date Urine Culture (URINE CULTURE) 06/28/23 Microbiology Reports TEST:Urine Culture STATUS:Auth (Verified) BODY SITE: SOURCE:URINE COLLECTED DATE/TIME:06/28/23 6:00 PM Urine Culture SPECIMEN DESCRIPTION : URINE SPECIAL REQUESTS : NONE CULTURE : <10,000 COL/ML REPORT STATUS : FINAL 06/29/2023 Radiology Reports * Exam Date Time Procedure Performing Provider Status 06/28/23 1:[address] Abd/Pelvis W/ IV Contrast Only Chelita Cano; Auth (Verified) Notes: (CT Abd/Pelvis W/ IV Contrast Only) Reason For Exam: RLQ abdominal pain;Other: RESULT: CT Abd/Pelvis W/ IV Contrast Only CT Abd/Pelvis W/ IV Contrast Only Hx of Present Illness: choleycystectomy x1 week ago, finished abx yesterday. now x6 7 bouts of diarrhea today bilat lower abdo cramping and fevers.; Reason: Other:; RLQ abdominal pain; Clinical Question(s): Abscess; Order Comment: TECHNIQUE: Spiral CT through the abdomen and pelvis with IV contrast formatted in 3 planes. 100 cc of Omnipaque 300 was administered intravenously. This study was performed without oral contrast. Weight-based protocol using automatic tube modulation was used to optimize exposure parameters. COMPARISON: 06/17/2023 FINDINGS: The heart is normal in size. Mitral annulus and aortic valve calcification is present. There is no pericardial effusion. Atelectasis is present within the lung bases. The lung bases are otherwise unremarkable. The liver is unremarkable in appearance. A cholecystostomy tube has been placed since the prior study with decrease in the degree of gallbladder distention and wall thickening. Minimal residual pericholecystic fluid and stranding is seen. The pancreas is fatty replaced and otherwise unremarkable. The spleen and adrenal glands are unremarkable. Symmetric renal contrast enhancement is demonstrated bilaterally. Multiple less than 1 cm hypodensities are noted bilaterally, too small to characterize but statistically likely to represent cysts. There is a left lower pole cyst measuring 3.8 cm. Cortical scar with underlying calcification in the upper pole of the left kidney is noted. There is no hydronephrosis. The bladder is partially distended and grossly unremarkable. There is persistent marked thickening of the endometrium, measuring up to 1 cm (image 65 series 203). The adnexa are unremarkable. The appendix is not identified, however, there is no pericecal inflammatory change to suggest the presence of appendicitis. The sigmoid colon is thickened with multiple diverticula and adjacent inflammation in the mesocolon. No obstruction is present. There is no free air, free fluid, or lymphadenopathy. The osseous structures are unremarkable. IMPRESSION: Interval placement of a cholecystostomy tube with a decrease in the gallbladder distention and wallthickening. Residual pericholecystic fluid remains. Findings consistent with sigmoid diverticulitis. Marked thickening of the endometrium, unchanged from the prior study. Further evaluation with ultrasound may be considered. An actionable message (Leslie) has been communicated via the [employer] system on 06/28/2023 1:31 PM, Message ID [id number]. WSN: [id number] Ordering Physician: Latrice Ellis Dictated By: Kelly Mata MD Dictated Date/Time: 06/28/23 1:31 pm Reviewed By: Kelly Mata MD Signed By: Kelly Mata MD Signed Date/Time: 06/28/23 1:31 pm Transcribed By: BRANDIN Transcribed Date/Time: 06/28/23 1:26 pm Vital Signs Most recent to oldest [Reference Range]: 1 2 3 Height 157.5 cm (07/01/23 8:38 AM) 157.5 cm (06/30/23 9:45 AM) Weight 69 kg (06/30/23 9:45 AM) 67.0 kg (06/30/23 7:00 AM) Oxygen Saturation [94-100 %] 97 % (07/02/23 7:00 AM) 95 % (07/01/23 8:00 PM) 98 % (07/01/23 8:38 AM) Pulse Rate [55-90 bpm] 76 bpm (07/02/23 10:15 AM) 72 bpm (07/02/23 7:00 AM) 77 bpm (07/01/23 9:13 PM) Body Mass Index [18.5-24.99 kg/m2] 27.82 kg/m2 *H* (06/30/23 9:45 AM) Blood Pressure [90-138/55-84 mm Hg] 142/68mm Hg *H* (07/02/23 10:15 AM) 116/58mm Hg (07/02/23 7:00 AM) 148/72mm Hg *H* (07/01/23 9:13 PM) Respiratory Rate [16-30 br/min] 17 br/min (07/02/23 7:00 AM) 16 br/min (07/01/23 8:00 PM) 16 br/min (07/01/23 8:38 AM) Temperature [96.8-100.4 DegF] 98.0 DegF (07/02/23 7:00 AM) 98.2 DegF (07/01/23 8:00 PM) 97.2 DegF (07/01/23 8:38 AM) Liters per Minute 2 L/min (06/29/23 6:19 AM) Mode of Delivery (Oxygen) Room air (07/02/23 7:00 AM) Room air (07/01/23 8:00 PM) Room air (07/01/23 8:38 AM) Blood pressure sites Arm, right (07/02/23 7:00 AM) Arm, right (07/01/23 8:00 PM) Arm, right (07/01/23 8:38 AM) Temperature Route Oral (07/02/23 7:00 AM) Oral (07/01/23 8:00 PM) Oral (07/01/23 8:38 AM) Dry Weight 69 kg (06/30/23 9:45 AM) Social History Social History Type Response Smoking Status Never (less than 100 in lifetime);Former smoker, quit more than 30 days ago entered on: 06/17/23 Sex Admission evaluation note * Patsy Coleman DO: MODIFY, MODIFY, MODIFY, MODIFY, MODIFY, MODIFY, MODIFY, PERFORM, MODIFY, MODIFY, MODIFY, MODIFY, MODIFY Event Display: Admission Note Authored Date: [id number] Patient: ??DENISE ADAM ? Age:??83 Years?Sex:??Female?:??1940?? Chief Complaint/Reason for Consultation Deirdre coming from home had a choleysystectomy 1 week ago, since then increasing abdo pain and feversw. diarrhea. History of Present Illness Denise is an 83 y/o female with a past medical history of hypothyroidism, Anxiety, aortic stenosis, CAD, hypertension, recent hospitalization for cholecystostomy placement 1/2 presenting with right lower quadrant abdominal pain in the setting of 3 days fever, 2 days nonbloody diarrhea, increasing o utput and darkening color of cholecystostomy tube output.?? She has just finished a 7-day course ofAugmentin in the outpatient setting.?? She endorses decreased p.o. intake, but no nausea or vomiting.?? No dysuria or hematuria.?? She had taken her temperature at home 101 ??F temperature for which she took Tylenol. ?? She was recently dc on 06/20 after being found to have acute cholecystitis. Surgery had recommended cholecystostomy tube given [facility] risk surgery d/t cardiac hx. She was initially tx with CTX and flagyland switched to Augmentin to complete a course of 7 days.She was to f/u with Dr. Fajardo with surgery for further monitoring and potential removal in 7-10 days. ?? On arrival to the ED, she was hemodynamically stable, satting well on room air, afebrile.?? Her labs showing a leukocytosis of 16.5, no anemia, lytes within normal limits, alk phos of 197, AST 22,ALT 24, T. bili 0.3, direct bili less than 1.2, TSH 2.88, negative flu/RSV/COVID, UA showing specific gravity greater than 1.05, 31 white blood cells, 18 RBCs, 1+ leukocytes.?? Her CT abdomen/pelvis showed interval placement of the cholecystostomy tube with a decrease in gallbladder distention and wall thickening, residual pericholecystic fluid remains; sigmoid diverticulitis; marked thickening of the endometrium unchanged from prior study with consideration for ultrasound for further evaluation.?? Given these findings, she was given ceftriaxone 1 g and Flagyl 500 mg IV as well as 500 cc saline bolus.?? Given findings of diverticulitis in the setting of a recently completed course of Augmentin, patient was admitted for IV antibiotics for diverticulitis. ?? Review of Systems ROS is negative except for what has been written in the subjective. Objective Vital Signs?? Temperature: 99.9 DegF (06/28/23 15:58:00) Temperature Route: Oral (06/28/23 15:58:00) Pulse Rate:??97 bpm??High (06/28/23 19:48:00) Respiratory Rate: 19 br/min (06/28/23 19:48:00) Systolic Blood Pressure:??158 mm Hg??High (06/28/23 19:48:00) Diastolic Blood Pressure: 76 mm Hg (06/28/23 19:48:00) Blood pressure sites: Arm, left (06/28/23 19:48:00) Mean Arterial Pressure: 103 mm Hg (06/28/23 19:48:00) Pulse Pressure: 82 mm Hg (06/28/23 19:48:00) Oxygen Saturation: 94 % (06/28/23 19:48:00) Mode of Delivery (Oxygen): Room air (06/28/23 19:48:00) ? Intake/Output? No Data Available ? Physical Exam General: Patient in no acute distress?? Respiratory: bilateral equal air entry, clear to auscultation with no wheezes or crackles. Adequaterespiratory rate and effort on room air.?? CVS: regular rate and rhythm, S1 and S2 present, no murmurs, rubs or gallops. No JVD.?? Abdomen: soft, non tender, non distended, bowel sounds present, no organomegaly.??Cholecystostomy drain in place, no erythema; draining bilious fluids Extremities: no cyanosis, pulses present and equal bilaterally. No edema noted b/l.?? Neuro: alert and oriented x3. Cranial nerves II-XII grossly intact. Moving all extremities spontaneously. Normal tones, following simple commands.?? Derm: No signs of infection, surrounding skin is intact with no evidence of erythema, no purulent discharge, no tenderness?? Psych: Normal mood and affect?? Assessment/Plan Denise is an 83 y/o female with a past medical history of hypothyroidism, Anxiety, aortic stenosis, CAD, hypertension, recent hospitalization for cholecystostomy placement 1/2 presenting with right lower quadrant abdominal pain in the setting of 3 days fever, 2 days nonbloody diarrhea, increasing o utput and darkening color of cholecystostomy tube output.?? Found to have sigmoid diverticulitis requiring IV abx. ?? Sigmoid Diverticulitis - K57.32 ??? Presents with abdominal pain, decreased PO intake ??? Recently admitted for cholecystitis, which was tx with cholecystostomy tube given high risk surgery ??? Afebrile while inpt, hemodynamically stable, no signs of abscess on imaging, does have a leukocytosis ??? CT abdomen showing sigmoid diverticulitis ??? Given that she was on Augmentin when she was dx with diverticulitis, this is considered outpatient tx failure requiring IV abx ??? Pt endorses 2-3 liquidy stools, but has not had a BM since being here, no blood or mucus ?? Plan: ??? Continue CTX 1 gm daily ??? Continue??Flagyl 500 mg ??? C Diff testing given bowel movements and abx hx ??? Zofran for nausea ??? Tylenol for fever ??? serial abdominal exams ?? Abnormal Urine Studies ?UTI ??? UA showing specific gravity greater than 1.05, 31 white blood cells, 18 RBCs, 1+ leukocytes ??? pt does not have urinary symptoms ?? Plan: ??? Will get urine cultures to ensure no??infection as can have atypical presentation in elderly patients ??? already on abx ?? Recent Cholecystitis Cholecystostomy?? - Z43.4 ??? recently dc on 06/20 after being found to have acute cholecystitis ??? Surgery had recommended cholecystostomy tube given high risk surgery d/t cardiac hx ??? She was initially tx with CTX and flagyl and switched to Augmentin to complete a course of 7 days ??? alk phos of 197, AST 22, ALT 24, T. bili 0.3, direct bili less than 1.2 ??? CT abdomen/pelvis showed interval placement of the cholecystostomy tube with a decrease in gallbladder distention and wall thickening, residual pericholecystic fluid remains ?? Plan: ??? She was to f/u with Dr. Fajardo with surgery for further monitoring and potential removal in 7-10 days ??? Continue to monitor LFTs ??? serial ab exams ?? L Main Disease - I25.10? Continue aspirin 81 mg daily ??? Continue simvastatin 40 mg daily ?? HTN - I10? Continue Coreg 25 mg twice daily ?? Anxiety - F41.9 ??? Continue clonazepam 0.5 mg twice daily ??? Continue nortriptyline 50 mg daily ?? Hypothyroidism - E03.9? TSH 2.88 ??? Continue levothyroxine 75 mcg daily ?? Outpatient FU ??? CT abdomen/pelvis: marked thickening of the endometrium unchanged from prior study with consideration for ultrasound for further evaluation ?? Quality Measures: Code Status: DNR Diet: clear liquid DVT PPx: Lovenox Med Rec per patient Pt does perform ADLs, mows her lawn. No need for walker/cane. ?? Patient care was discussed with ??Jigar Coleman, DO Internal Medicine, PGY2 Pager: [phone] Histories Allergies Allergies ?(Active and Proposed Allergies Only) penicillin? (Severity: Unknown severity, Onset: Unknown) ?Comments: doesn't remember reaction ? Past Medical History/Problem List hypothyroidism, Anxiety, aortic stenosis, CAD, hypertension, recent hospitalization for cholecystostomy ?? Past Surgical History Cholecystostomy drain ?? Social History Tobacco Details:??Use: Never (less than 100 in lifetime), Former smoker, quit more than 30 days ago. ? Family History No??pertinent fam hx ? [facility] ?? Medications Home Medications Aspirin (aspirin 81 mg [...] mg oral tablet)?40?Milligram?1?tablet?By Mouth?Daily at bedtime ? Inpatient Medications Medications (10) Active SCHEDULED: (2) Metronidazole 500 mg / NaCL 0.9% 100 mL (Metronidazole IVPB) ??500 mg 100 mL, IVPB, Once NaCl 0.9% Flush 3ml (NaCL 0.9% Flush) ??3 mL, IV Push, Every 8 hours CONTINUOUS: (0) PRN: (8) Acetaminophen 325 mg Tablet (Acetaminophen Tablet) ??650 mg, By Mouth, Every 4 hours Dextromethorphan-Guaifenesin 20 mg-200 mg/10 mL Liqu UD (Robitussin DM Liquid) ??10 mL, By Mouth, Every 4 hours Docusate Sodium 100 mg Capsule (Docusate Sodium Capsule) ??100 mg 1 capsule, By Mouth, 2 times a day Melatonin 3 mg Tablet (Melatonin Tablet) ??3 mg, By Mouth, Daily at bedtime NaCl 0.9% Flush 3ml (NaCL 0.9% Flush) ??3 mL, IV Push, Every 8 hours Polyethylene Glycol 17 Gm Powder (MiraLax Powder) ??17 Gm 1 pack/packet, By Mouth, Daily Senna Tablet ??8.6 mg 1 tablet, By Mouth, 2 times a day Simethicone 80 mg Chewable Tablet (Simethicone Tablet) ??80 mg, Chew, 3 times a day ? Results Recent Labs BLOOD COUNT & DIFF WBC 16.5 k/mm3 (High)?? 06/28/2023 11:50 RBC 4.40 m/mm3 ()?? 06/28/2023 11:50 Hgb 12.7 Gm/dL ()?? 06/28/2023 11:50 Hct 40.1 % ()?? 06/28/2023 11:50 MCV 91.1 femtoliters ()?? 06/28/2023 11:50 MCH 28.9 pg ()?? 06/28/2023 11:50 MCHC 31.7 g/dL (Low)?? 06/28/2023 11:50 Platelet Count 356 k/mm3 ()?? 06/28/2023 11:50 RDW-SD 41.7 femtoliters ()?? 06/28/2023 11:50 MPV 9.2 femtoliters (Low)?? 06/28/2023 11:50 Nucleated RBC (Automated) 0.0 #/100 WBC'S ()?? 06/28/2023 11:50 Abs. NRBC 0.0 k/mm3 ()?? 06/28/2023 11:50 Abs. Neut 13.7 k/mm3 (High)?? 06/28/2023 11:50 Abs. Lymph 1.4 k/mm3 ()?? 06/28/2023 11:50 Abs. [place] 1.0 k/mm3 (High)?? 06/28/2023 11:50 Abs. Eo 0.2 k/mm3 ()?? 06/28/2023 11:50 Abs. Baso 0.1 k/mm3 ()?? 06/28/2023 11:50 Neut % 83.0 % (High)?? 06/28/2023 11:50 Lymph % 8.4 % (Low)?? 06/28/2023 11:50 [place] % 5.9 % ()?? 06/28/2023 11:50 Eos % 1.4 % ()?? 06/28/2023 11:50 Baso % 0.4 % ()?? 06/28/2023 11:50 Imm Gran 0.9 % ()?? 06/28/2023 11:50 Abs. Imm Gran 0.2 k/mm3 ()?? 06/28/2023 11:50 ?? CHEM GENERAL Sodium 138 mmol/L ()?? 06/28/2023 11:50 Potassium 4.0 mmol/L ()?? 06/28/2023 11:50 Chloride 103 mmol/L ()?? 06/28/2023 11:50 Bicarbonate Level 23 mmol/L ()?? 06/28/2023 11:50 Anion Gap 12 ()?? 06/28/2023 11:50 Glucose Level 109 mg/dL (High)?? 06/28/2023 11:50 BUN 11 mg/dL ()?? 06/28/2023 11:50 Creatinine-Blood 0.8 mg/dL ()?? 06/28/2023 11:50 Estimated GFR Creatinine 74 ML/MIN/1.73 M2 ()?? 06/28/2023 11:50 Calcium 8.9 mg/dL ()?? 06/28/2023 11:50 Protein, Total 6.5 Gm/dL ()?? 06/28/2023 11:50 Albumin 3.7 Gm/dL ()?? 06/28/2023 11:50 Alkaline Phosphatase 197 units/L (High)?? 06/28/2023 11:50 AST (SGOT) 22 units/L ()?? 06/28/2023 11:50 ALT (SGPT) 24 units/L ()?? 06/28/2023 11:50 Bilirubin, Total 0.3 mg/dL ()?? 06/28/2023 11:50 Bilirubin, Direct <0.2 mg/dL ()?? 06/28/2023 11:50 Bilirubin, Indirect Direct bilirubin is less than the measureable limit. Therefore, indirect mg/dL ()?? 06/28/2023 11:50 ?? ENDOCRINE/TUMOR MARKER TSH 2.88 uIU/mL ()?? 06/28/2023 11:50 ?? UA/URINALYSIS Appear/Color, Urine LIGHT YELLOW ()?? 06/28/2023 18:00 Specific [place], Urine >1.050 (High)?? 06/28/2023 18:00 pH, Urine 8.0 ()?? 06/28/2023 18:00 Albumin, Urine 1+ (Abnormal)?? 06/28/2023 18:00 Glucose, Urine NEGATIVE ()?? 06/28/2023 18:00 Ketones, Urine NEGATIVE ()?? 06/28/2023 18:00 Bilirubin, Urine NEGATIVE ()?? 06/28/2023 18:00 Hemoglobin, Urine 1+ (Abnormal)?? 06/28/2023 18:00 Nitrite, Urine NEGATIVE ()?? 06/28/2023 18:00 Leukocyte, Urine 1+ (Abnormal)?? 06/28/2023 18:00 Urobilinogen NORMAL mg/dL ()?? 06/28/2023 18:00 WBC's, Urine 31 /HPF (High)?? 06/28/2023 18:00 RBC's, Urine 18 /HPF (High)?? 06/28/2023 18:00 Squamous Epith 6 /HPF ()?? 06/28/2023 18:00 Mucus SLIGHT /LPF ()?? 06/28/2023 18:00 Hold Urine Culture Testing available 48 hours from time of collection. ()?? 06/28/2023 18:00 ?? VIROLOGY Influenza A PCR NEGATIVE ()?? 06/28/2023 11:53 Influenza B PCR NEGATIVE ()?? 06/28/2023 11:53 RSV PCR NEGATIVE ()?? 06/28/2023 11:53 COVID-19 PCR Specimen Source NASAL ()?? 06/28/2023 11:53 COVID-19 PCR Result NEGATIVE ()?? 06/28/2023 11:53 ? Urinalysis Albumin, Urine: 1+ Abnormal (18:00) Appear/Color, Urine: LIGHT YELLOW (18:00) Bilirubin, Urine: NEGATIVE (18:00) Glucose, Urine: NEGATIVE (18:00) Hemoglobin, Urine: 1+ Abnormal (18:00) Hold Urine Culture: Testing available 48 hours from time of collection. (18:00) Ketones, Urine: NEGATIVE (18:00) Leukocyte, Urine: 1+ Abnormal (18:00) Mucus: SLIGHT (18:00) Nitrite, Urine: NEGATIVE (18:00) pH, Urine: 8 (18:00) RBC's, Urine:??18 /HPF??High (18:00) Specific [place], Urine:??>1.050??High (18:00) Squamous Epith: 6 /HPF (18:00) Urobilinogen: NORMAL (18:00) WBC's, Urine:??31 /HPF??High (18:00) ?? Microbiology ?? COVID-19, RSV, and Flu A/B, Rapid PCR?? Completed?? Source: Nasal Body Site: Nose Collected Dt/Tm: 06/28/2023 11:44 Last Updated Dt/Tm: 06/28/2023 12:47 ? Blood Gases?? No qualifying data available. ?? Uric/LDH?? No qualifying data available. ?? * Clarence Kimball MD: PERFORM Event Display: Admission Note Authored Date: ??Attending Attestation: I have seen and evaluated this patient.?? I have discussed the case and its management with the resident and agree with the findings and audrey documented in the resident's note.?? I?? will continue to provide care to this patient till 7 AMof the admitting date.?? 83-year-old female with a past medical history of aortic stenosis, CAD, hypertension, recent admission for abdominal pain/acute cholecystitis requiring IR guided cholecystostomy tube came with a complaint of right quadrant pain from last 3 days with fever, nonbloody diarrhea and increasing output from the cholecystostomy tube.?No history of any nausea, vomiting but history of decreased oral intake.?? Documented fevers at home.?? Lab workup showed high alkaline phosphatase.?? UA is abnormal with.?? 31 WBCs in the urine CT of the abdomen and pelvis with IV contrast showed decrease in gallbladder distention and wall thickening.?? Findings were consistent with sigmoid diverticulitis.?? Will get a urine culture.?? Will continue ceftriaxone and Flagyl.?? Will continu e with the serial abdominal examination.?? We will continue symptomatic supportive treatment. Hospital Progress note * Ivy Hendricks RN: PERFORM, SIGN, VERIFY Event Display: Progress Note Hospital Authored Date: Patient: DENISE ADAM Age: 83 years Sex: Female : 1940 Associated Diagnoses: None Author: Ivy Hendricks RN Findings Problem Related to Alteration in Gastrointestinal : Alteration in Gastrointestinal Func/new 07/01/2023 12:00 EST Alteration in GI status Related to C Diff Goals & Outcomes, Gastrointestinal Establish a regular pattern of elimination for pt, Nutritional intake is adequate for metabolic needs, Pt will achieve normal/improved fluid balance, Pt will have a bowel movement prior to discharge, Pt will maintain adequate GI function appropriate for pt, Ptwill maintain normal elimination patterns, Pt will resume/maintain adequate hemodynamic status, Pt w ill tolerate age appropriate diet prior to discharge Interventions, Gastrointestinal Assess/monitor abdomen for distention, tenderness, Assess/monitor abdominal girth & bowel function, Assess/monitor bowel pattern, bowel sounds, flatus, Assess/monitor number of bowel movements, Assess/monitor color, quantity, quality, consistency of stoo, Assess/monitor pt for nausea, vomiting, Assess/monitor effects of re-hydration, Assess/monitor intake &output, Assess if pt tolerating diet, Collaborate/Consult with [facility]; review recommendations, DVT prophylaxis as ordered, Elevate HOB to facilitate lung expansion, prevent aspiration, Establish toileting schedule for patient, Taking PO: Encourage/monitor intake & swallowing ability, Enteral nutrition;check residuals; HOB >30 degrees, Nasogastric to LWS as ordered;care per Standards of Practice, Provide info on community resources for education, support, Provide/encourage oral care ifNPO, Teach Pt/caregiver diet & give copy of dietary instructions, Teach Pt/caregiver on bowel elimination interventions, Teach Pt/caregiver re: importance of bowel regime, Teach Pt/caregiver re: n utritional intake & dietary restrict, Teach/encourage deep breath & cough exercises, Teach/encourage use of incentive spirometer Goals/Interventions, Gastrointestinal Yes Gastrointestinal, Problem Start 06/30/2023 7:00 Reviewed plan with, Gastrointestinal Patient Patient Progression, Gastrointestinal Pt progressing according to plan . Nursing Data Vital Signs : VITAL SIGNS SECTION 07/01/2023 21:14 EST Early Warning Score 2.00 07/01/2023 21:13 EST Pulse Rate 77 bpm Systolic Blood Pressure 148 mm Hg H Diastolic Blood Pressure 72 mm Hg 07/01/2023 20:06 EST Early Warning Score 2.00 07/01/2023 20:00 EST Temperature 98.2 DegF Temperature Route Oral Pulse Rate 89 bpm Respiratory Rate 16 br/min Systolic Blood Pressure 141 mm Hg H Diastolic Blood Pressure 53 mm Hg L Blood pressure sites Arm, right Pulse Pressure 88 mm Hg Oxygen Saturation 95 % Mode of Delivery (Oxygen) Room air . Evaluation P > Alteration in GI Status I > Per Nursing Care Plan E > A&O x3. Contact isolation for (+) C-diff. Last BM 06/30. Abdomen snt. ( +) bowel sounds. Surgical insertion site, right side of abdomen~ with no drainage, no s/s of infection. Dayanara tube patent, draining dark green liquid. Drained 70 ml at 2300. Pt independent to the commode. IV antibiotics infused as ordered. Pt afebrile, no chills. VSS.. Discharge Information Case Management Discharge Plan : Case Management Discharge Plan Data 07/01/2023 14:47 EST Discharge Level of Care at Discharge Hospice Medical Facility Discharge [facility]NA/Hospice/Home Care [facility] Name of Agency #1 [facility] Designer #[phone] Service Categories #1 Physical Therapy, Jail Service Comments #1 You are being discharged today with [facility] to resume services. The agencywill contact you to set up a time to visit. They can be reached at [phone] if you don't hear from them. Rehabilitation Discharge : Rehab Discharge Index 07/01/2023 8:10 EST Comments on treatment indicated 83 yo F s/p cholecystostomy on 06/19 p/w RLQ rightpain in the setting fever x3days, increasing cholecystostomy output and darkening color. Found to have sigmoid diverticulitis started on IV abx. Full chart review completed Yes Other findings low complexity eval 2/2 pmh and acute medical findings Plan of care PT Gait training, Transfer training, Therapeutic exercise, Functional Activities, Balance training * Albina Rivera RN: SIGN, MODIFY, PERFORM, SIGN, VERIFY Event Display: Progress Note Hospital Authored Date: Patient: DENISE ADAM Age: 83 years Sex: Female : 1940 Associated Diagnoses: None Author: Albina Rivera RN Findings Problem Related to Alteration in Gastrointestinal : Alteration in Gastrointestinal Func/new 07/01/2023 12:00 EST Alteration in GI status Related to C Diff Goals & Outcomes, Gastrointestinal Establish a regular pattern of elimination for pt, Nutritional intake is adequate for metabolic needs, Pt will achieve normal/improved fluid balance, Pt will have a bowel movement prior to discharge, Pt will maintain adequate GI function appropriate for pt, Ptwill maintain normal elimination patterns, Pt will resume/maintain adequate hemodynamic status, Pt w ill tolerate age appropriate diet prior to discharge Interventions, Gastrointestinal Assess/monitor abdomen for distention, tenderness, Assess/monitor abdominal girth & bowel function, Assess/monitor bowel pattern, bowel sounds, flatus, Assess/monitor number of bowel movements, Assess/monitor color, quantity, quality, consistency of stoo, Assess/monitor pt for nausea, vomiting, Assess/monitor effects of re-hydration, Assess/monitor intake &output, Assess if pt tolerating diet, Collaborate/Consult with Willower; review recommendations, DVT prophylaxis as ordered, Elevate HOB to facilitate lung expansion, prevent aspiration, Establish toileting schedule for patient, Taking PO: Encourage/monitor intake & swallowing ability, Enteral nutrition;check residuals; HOB >30 degrees, Nasogastric to LWS as ordered;care per Standards of Practice, Provide info on community resources for education, support, Provide/encourage oral care ifNPO, Teach Pt/caregiver diet & give copy of dietary instructions, Teach Pt/caregiver on bowel elimination interventions, Teach Pt/caregiver re: importance of bowel regime, Teach Pt/caregiver re: n utritional intake & dietary restrict, Teach/encourage deep breath & cough exercises, Teach/encourage use of incentive spirometer BH Goals/Interventions, Gastrointestinal Yes Gastrointestinal, Problem Start 06/30/2023 7:00 Reviewed plan with, Gastrointestinal Patient Patient Progression, Gastrointestinal Pt progressing according to plan . Narrative/Incidental So significant events this shift. Patient in no apparent distress. Respirations even and unlabored.Comfort and safety maintained. Bed in lowest and locked position with upper side rails up. Call ball in reach. Hourly rounding provided. Cleared by PT for home with services. . Discharge Information Case Management Discharge Plan : Case Management Discharge Plan Data 07/01/2023 14:47 EST Discharge Level of Care at Discharge Hospice Medical Facility Dis[facility] [place] Name of Agency #1 [facility] [phone] Service Categories #1 Physical Therapy, Jail Service Comments #1 You are being discharged today with [facility] to resume services. The agencywill contact you to set up a time to visit. They can be reached at [phone] if you don't hear from them. Rehabilitation Discharge : Rehab Discharge Index 07/01/2023 8:10 EST Comments on treatment indicated 83 yo F s/p cholecystostomy on 06/19 p/w RLQ rightpain in the setting fever x3days, increasing cholecystostomy output and darkening color. Found to have sigmoid diverticulitis started on IV abx. Full chart review completed Yes Other findings low complexity eval 2/2 pmh and acute medical findings Plan of care PT Gait training, Transfer training, Therapeutic exercise, Functional Activities, Balance training * Albina Rivera RN: PERFORM Event Display: Progress Note Hospital Authored Date: 1612 patient was getting ready to go home when she told this RN that she was feeling weak and dizzy. VSS, POC 98. notified and decided to keep her for another night and to start 500 mL LR at 100 mL/hr. Patient currently resting comfortably. Respirations even and unlabored. * Becca Barton DO F: PERFORM, MODIFY, MODIFY, MODIFY, MODIFY, MODIFY, MODIFY, MODIFY, MODIFY Event Display: Progress Note Hospital Authored Date: Patient: ??DENISE ADAM ? Age:??83 Years?Sex:??Female?:??1940?? Patient Information Discharge Location: [facility] Primary Care Physician: Kelly STOVER, Jerman De León Admit Date/Time: 06/28/23 20:12 Discharge Disposition Discharge Disposition: Home with Home Health Discharge Diagnosis Sigmoid diverticulitis (K57.32) Cholecystostomy care (Z43.4) Left main coronary artery disease (I25.10) HTN (hypertension) (I10) Anxiety (F41.9) Hypothyroidism (E03.9) Diarrhea (R19.7) Diverticulitis (K57.92) Fever (R50.9) ?? _ Discharge Medications Aspirin (aspirin 81 [...] (levothyroxine 75 mcg (0.075 mg) oral tablet)?1?tab(s)?75?Microgram?ByMouth?Daily Metronidazole (metroNIDAZOLE 500 mg oral tablet)?1?tab(s)?500?Milligram?By Mouth?Every 8 hours?for 8?Days?do not drink alcoholmay take with food to minimize abdominal discom fort Multivitamin (Super B Complex Vitamin B Complex oral tablet)?1?tab(s)?By Mouth?Daily Nortriptyline (nortriptyline 50 mg oral capsule)?50?Milligram?1?capsule?By Mouth?Daily Simvastatin (simvastatin 40 mg oral tablet)?40?Milligram?1?tablet?By Mouth?Daily at bedtime Vancomycin (vancomycin 125 mg oral capsule)?1?capsule?125?Milligram?By Mouth?Every 6 hours?for 13?Days?Doses over 125 mg require ID consult. Indication for Use: C. difficile colitis ? Inpatient Medications Medications (19) Active SCHEDULED: (10) Aspirin 81 mg EC Tablet (aspirin 81 mg oral delayed release tablet) ??81 mg, By Mouth, Daily Carvedilol 25 mg Tablet (Coreg 25 mg oral tablet) ??25 mg, By Mouth, 2 times a day Clonazepam 0.5 mg Tablet (clonazePAM 0.5 mg oral tablet) ??0.5 mg, By Mouth, 2 times a day Enoxaparin 40 mg Inj (Enoxaparin Inj) ??40 mg 0.4 mL, Subcutaneous Injection, Daily Levothyroxine 75 mcg Tablet (levothyroxine 0.075 mg [...] ??40 mg, By Mouth, Daily at bedtime Vancomycin 125 mg Capsule (Vancomycin Capsule) ??125 mg, By Mouth, Every 6 hours CONTINUOUS: (0) PRN: (9) Acetaminophen 325 mg Tablet (Acetaminophen Tablet) ??650 mg, By Mouth, Every 4 hours Dextromethorphan-Guaifenesin 20 mg-200 mg/10 mL Liqu UD (Robitussin DM Liquid) ??10 mL, By Mouth, Every 4 hours Docusate Sodium 100 mg Capsule (Docusate Sodium Capsule) ??100 mg 1 capsule, By Mouth, 2 times a day Melatonin 3 mg Tablet (Melatonin Tablet) ??3 mg, By Mouth, Daily at bedtime NaCl 0.9% Flush 3ml (NaCL 0.9% Flush) ??3 mL, IV Push, Every 8 hours Ondansetron 2mg/mL Inj (2mL Vial) (Zofran Inj) ??4 mg, IV Push, Every 6 hours Polyethylene Glycol 17 Gm Powder (MiraLax Powder) ??17 Gm 1 pack/packet, By Mouth, Daily Senna Tablet ??8.6 mg 1 tablet, By Mouth, 2 times a day Simethicone 80 mg Chewable Tablet (Simethicone Tablet) ??80 mg, Chew, 3 times a day ? Medications Started Metronidazole (metroNIDAZOLE 500 mg oral tablet)?1?tab(s)?500?Milligram?By Mouth?Every 8 hours?for 8?Days?do not drink alcoholmay take with food to minimize abdominal discom fort Vancomycin (vancomycin 125 mg oral capsule)?1?capsule?125?Milligram?By Mouth?Every 6 hours?for 13?Days?Doses over 125 mg require ID consult. Indication for Use: C. difficile colitis Medications Discontinued none Doses Changed Carvedilol dose reduced Allergies Allergies ?(Active and Proposed Allergies Only) penicillin? (Severity: Unknown severity, Onset: Unknown) ?Comments: doesn't remember reaction ? 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 Where: Interventional Radiology Status: Pending Hospital Course Denise is an 83 y/o female with a past medical history of hypothyroidism, Anxiety, aortic stenosis, CAD, hypertension, recent hospitalization for cholecystostomy placement 1/2 presenting with right lower quadrant abdominal pain in the setting of 3 days fever, 2 days nonbloody diarrhea, increasing o utput and darkening color of cholecystostomy tube output, found to have sigmoid diverticulitis requiring IV abx, hospital course complicated by c diff diarrhea, improved, seen by PT and ready for discharge home with services Tolerating diet, diarrhea resolved, no nausea or vomiting. d/w surgery and IR- follow ups as below. VNA recommendations for flushing, patient already has VNA Objective Assessment and Plan Sigmoid diverticulitis (K57.32): Colitis, Clostridium difficile (A04.72):?? Presents with abdominal pain, decreased PO intake Recently admitted for cholecystitis, which was tx with cholecystostomy tube given high risk surgery Afebrile while inpt, hemodynamically stable, no signs of abscess on imaging, does have a leukocytosis, improving CT abdomen showing sigmoid diverticulitis Given that she was on Augmentin when she was dx with diverticulitis, this is considered outpatient tx failure requiring IV abx recevied ceftriaxone now discontinued has had small BM, not diarrhea per RN, no blood ?? RECS PO vancomycin for 14 days course 125 mg QID Isolation for C.diff, d/w infectious disease- 48 hours of formed stool and then dc isolation, wash hands with soap and water and use bleach based headlight adjuster Dc on flagyl 800 mg q8 to complete 10 days return for worsening abdominal pain, fever ?? Abnormal urinalysis (R82.90):?? UA showing specific gravity greater than 1.05, 31 white blood cells, 18 RBCs, 1+ leukocytes pt does not have urinary symptoms urine culture <10,000 CFU ?? Recent Cholecystitis Cholecystostomy care (Z43.4): recently dc on 06/20 after being found to have acute cholecystitis Surgery had recommended cholecystostomy tube given high risk surgery d/t cardiac hx She was initially tx with CTX and flagyl and switched to Augmentin to complete a course of 7 days alk phos of 197, AST 22, ALT 24, T. bili 0.3, direct bili less than 1.2 CT abdomen/pelvis showed interval placement of the cholecystostomy tube with a decrease in gallbladder distention and wall thickening, residual pericholecystic fluid remains ?? RECS f/u with Dr. Fajardo?? in 1-2 weeks, please call office follow up with IR as scheduled Jul 30 VNA for flushes instructions per IR: flush once a day sterile technique with NS 10cc and then pull back ?? Left main coronary artery disease (I25.10): ??? Continue aspirin 81 mg daily ??? Continue simvastatin 40 mg daily ?? HTN (hypertension) (I10):? coreg reduced to 12.5 mg twice daily ?? Anxiety - F41.9 ??? Continue clonazepam 0.5 mg twice daily ??? Continue nortriptyline 50 mg daily ?? Hypothyroidism (E03.9): ??? TSH 2.88 ??? Continue levothyroxine 75 mcg daily ?? Thickened endometrium (R93.89) ??? CT abdomen/pelvis: marked thickening of the endometrium unchanged from prior study with consideration for ultrasound for further evaluation ? Measurements?? Height: 157.5 cm (07/01/23) Weight: 69 kg (06/30/23) Dry Weight: 69 kg (06/30/23) Body Mass Index:??27.82 kg/m2??High (06/30/23) ? Vital Signs?? Temperature: 97.2 DegF (07/01/23 08:38:00) Temperature Route: Oral (07/01/23 08:38:00) Pulse Rate: 66 bpm (07/01/23 10:02:00) Respiratory Rate: 16 br/min (07/01/23 08:38:00) Systolic Blood Pressure: 116 mm Hg (07/01/23 10:02:00) Diastolic Blood Pressure:??48 mm Hg??Low (07/01/23 10:02:00) Blood pressure sites: Arm, right (07/01/23 08:38:00) Mean Arterial Pressure: 85 mm Hg (07/01/23 08:38:00) Pulse Pressure: 52 mm Hg (07/01/23 08:38:00) Oxygen Saturation: 98 % (07/01/23 08:38:00) Mode of Delivery (Oxygen): Room air (07/01/23 08:38:00) Early Warning Score: 2 (07/01/23 10:14:41) ? . Physical Exam General: Patient is awake, NAD, oriented X3 Eye: No redness, no jaundice, no pain or discharge ENT: no nasal discharge or rhinorrhea Cardiovascular: no chest pain, no palpitation Pulmonary: No dyspnea, no wheezing, no cough or??sputum GI: lower??abdominal pain,?? nausea, no vomiting, no constipation or diarrhea,??C tube??in place with green bile?? : No dysuria or blood with the urine, making good urine Extremities:no edema or swelling, no skin discoloration Skin: No rashes or itching , no jaundice Neuro: Awake, alert, no focal weakness, no numbness or tingling Psych: No anxiety, denied any mood changes??. Consultants ID IR Surgery Pending Results Add On Lab Order ordered on 06/28/2023 Add On Lab Order ordered on 06/28/2023 Patient Education Titles Diverticulitis?? Follow-Up Appointments Added Follow Up ?Time Frame ?Comments Scotty STOVER, Ana?1 to 2 weeks?please call office for surgery follow up Kelly STOVER, Jerman De León?1 week: call to discuss follow up visit Patient Instructions You were admitted for diverticulitis,??after outpatient antibiotics did not work You are started on IV antibiotics here, also found to have??a bacterial infection, C. difficile diarrhea, started on antibiotics for this You will be discharged on vancomycin orally, as well as metronidazole??orally for antibiotics Please follow-up??with??the surgeons as scheduled for your gallbladder, as well as your PCP within the week Please have your PCP recheck your labs within 1 week Please return for fevers, worsening abdominal pain, nausea, vomiting, blood in stool ?? VNA instructions for c tube:??flush once a day sterile technique with NS 10cc and then pull back ?? 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 Home Health Face to Face *Denotes mandatory frank ?? *I certify that this patient is under my care and that I or an allowed non- physician working with me had a face to face encounter with the patient on this date:??07/01/2023 12:55 ?? *The encounter with the patient was in whole, or in part, for the following medical condition, which is the primary diagnosis(es) for home health care:??Sigmoid diverticulitis (K57.32) Cholecystostomy care (Z43.4) Left main coronary artery disease (I25.10) HTN (hypertension) (I10) Anxiety (F41.9) Hypothyroidism (E03.9) Abnormal urinalysis (R82.90) Colitis, Clostridium difficile (A04.72) Diarrhea (R19.7) Diverticulitis (K57.92) Fever (R50.9) Thickened endometrium (R93.89) ? *Select the indications for the discipline/s that are being arranged for this patient. Nursing (select all that apply): [_] None [_] Medication management (reconciliation, teaching)?? [_] Chronic disease management?? [_] Wound care and treatment?? [_] Home safety evaluation [_] Administer SQ/IM/IV medications?? [_] Cath care?? [_X] Drain care?? [_] Trach or GT care?? Other flush once a day sterile technique with NS 10cc and then pull back ?? Occupation Therapy (select all that apply): [_] None [_] ADL Management [_] Fall prevention training [_] Energy conservation [_] Cognitive training Other _ Physical Therapy (select all that apply): [_] None [X_] Functional mobility training [X_] Home exercise program to strengthen [X_] Increase ROM?? [_] Falls prevention training [_] Home maintenance program for chronic disease Other _ Speech Therapy (select all that apply): [_] None [_] Swallow evaluation and training [_] Speech and language training [_] Cognitive training to process, organize, and/or recall information Other _ ? *Homebound due to (select all that apply): [X_] Inability to leave home without assistance/supervision [X_] Inability to ambulate without assistance [_] Pain [X_] Decreased strength and endurance [X_] Unsteady gait [_] Severe SOB and fatigue [_] Impaired transfers [_] Inability to negotiate stairs [_] Limited weight bearing [_] Mental status change? *Physician Signature:??Becca Barton DO ?? *By signing this, I certify that I have personally evaluated the patient and agree with the findings and recommendations as documented above. ? F Results Discharge Labs BLOOD COUNT & DIFF WBC 11.2 k/mm3 (High)?? 07/01/2023 02:38 RBC 3.90 m/mm3 (Low)?? 07/01/2023 02:38 Hgb 11.0 Gm/dL (Low)?? 07/01/2023 02:38 Hct 34.1 % (Low)?? 07/01/2023 02:38 MCV 87.4 femtoliters ()?? 07/01/2023 02:38 MCH 28.2 pg ()?? 07/01/2023 02:38 MCHC 32.3 g/dL (Low)?? 07/01/2023 02:38 Platelet Count 302 k/mm3 ()?? 07/01/2023 02:38 RDW-SD 40.3 femtoliters ()?? 07/01/2023 02:38 MPV 9.1 femtoliters (Low)?? 07/01/2023 02:38 Nucleated RBC (Automated) 0.0 #/100 WBC'S ()?? 07/01/2023 02:38 Abs. NRBC 0.0 k/mm3 ()?? 07/01/2023 02:38 Abs. Neut 13.7 k/mm3 (High)?? 06/28/2023 11:50 Abs. Lymph 1.4 k/mm3 ()?? 06/28/2023 11:50 Abs. [place] 1.0 k/mm3 (High)?? 06/28/2023 11:50 Abs. Eo 0.2 k/mm3 ()?? 06/28/2023 11:50 Abs. Baso 0.1 k/mm3 ()?? 06/28/2023 11:50 Neut % 83.0 % (High)?? 06/28/2023 11:50 Lymph % 8.4 % (Low)?? 06/28/2023 11:50 [place] % 5.9 % ()?? 06/28/2023 11:50 Eos % 1.4 % ()?? 06/28/2023 11:50 Baso % 0.4 % ()?? 06/28/2023 11:50 Imm Gran 0.9 % ()?? 06/28/2023 11:50 Abs. Imm Gran 0.2 k/mm3 ()?? 06/28/2023 11:50 ?? CHEM GENERAL Sodium 141 mmol/L ()?? 07/01/2023 02:38 Potassium 3.5 mmol/L (Low)?? 07/01/2023 02:38 Chloride 107 mmol/L ()?? 07/01/2023 02:38 Bicarbonate Level 25 mmol/L ()?? 07/01/2023 02:38 Anion Gap 9 ()?? 07/01/2023 02:38 Glucose Level 99 mg/dL ()?? 07/01/2023 02:38 BUN 10 mg/dL ()?? 07/01/2023 02:38 Creatinine-Blood 0.9 mg/dL ()?? 07/01/2023 02:38 Estimated GFR Creatinine 66 ML/MIN/1.73 M2 ()?? 07/01/2023 02:38 Calcium 8.6 mg/dL ()?? 07/01/2023 02:38 Phosphorus 3.0 mg/dL ()?? 07/01/2023 02:38 Magnesium 2.1 mg/dL ()?? 07/01/2023 02:38 Protein, Total 6.0 Gm/dL (Low)?? 06/29/2023 06:40 Albumin 3.4 Gm/dL ()?? 06/29/2023 06:40 Alkaline Phosphatase 154 units/L (High)?? 06/29/2023 06:40 AST (SGOT) 12 units/L ()?? 06/29/2023 06:40 ALT (SGPT) 17 units/L ()?? 06/29/2023 06:40 Bilirubin, Total 0.3 mg/dL ()?? 06/29/2023 06:40 Bilirubin, Direct <0.2 mg/dL ()?? 06/29/2023 06:40 Bilirubin, Indirect Direct bilirubin is less than the measureable limit. Therefore, indirect mg/dL ()?? 06/29/2023 06:40 ?? ENDOCRINE/TUMOR MARKER TSH 2.88 uIU/mL ()?? 06/28/2023 11:50 ? SEROLOGY INF DISEASE C.difficile Toxin POSITIVE. C.DIFFICILE BACTERIAL ANTIGEN AND TOXIN DETECTED. ALL TEST (Abnormal)?? 06/29/2023 07:43 ? UA/URINALYSIS Appear/Color, Urine LIGHT YELLOW ()?? 06/28/2023 18:00 Specific [place], Urine >1.050 (High)?? 06/28/2023 18:00 pH, Urine 8.0 ()?? 06/28/2023 18:00 Albumin, Urine 1+ (Abnormal)?? 06/28/2023 18:00 Glucose, Urine NEGATIVE ()?? 06/28/2023 18:00 Ketones, Urine NEGATIVE ()?? 06/28/2023 18:00 Bilirubin, Urine NEGATIVE ()?? 06/28/2023 18:00 Hemoglobin, Urine 1+ (Abnormal)?? 06/28/2023 18:00 Nitrite, Urine NEGATIVE ()?? 06/28/2023 18:00 Leukocyte, Urine 1+ (Abnormal)?? 06/28/2023 18:00 Urobilinogen NORMAL mg/dL ()?? 06/28/2023 18:00 WBC's, Urine 31 /HPF (High)?? 06/28/2023 18:00 RBC's, Urine 18 /HPF (High)?? 06/28/2023 18:00 Squamous Epith 6 /HPF ()?? 06/28/2023 18:00 Mucus SLIGHT /LPF ()?? 06/28/2023 18:00 Hold Urine Culture Testing available 48 hours from time of collection. ()?? 06/28/2023 18:00 ?? URINE OTHER Est Creatinine Clearance 38.13 mL/min ()?? 07/01/2023 03:15 ? VIROLOGY Influenza A PCR NEGATIVE ()?? 06/28/2023 11:53 Influenza B PCR NEGATIVE ()?? 06/28/2023 11:53 RSV PCR NEGATIVE ()?? 06/28/2023 11:53 COVID-19 PCR Specimen Source NASAL ()?? 06/28/2023 11:53 COVID-19 PCR Result NEGATIVE ()?? 06/28/2023 11:53 ? ON DISCHARGE, PATIENT REPORTED FEELING WEAK AND DIZZY. DISCHARGE CANCELLED, WILL GIVE IVF AND REASSESS IN AM note will serve as progress note for DOS 07/01/23 Note * Dorita Ruiz RN: PERFORM Event Display: Discharge/Transfer Note Hospital Authored Date: [id number] Nursing Discharge Note Entered On: 07/02/2023 11:48 EST Performed On: 07/02/2023 11:47 EST by Dorita Ruiz RN Nursing Discharge Note 2 Discharge Time : 07/02/2023 10:50 EST Discharge Level of Care at Discharge : Homehealth/VNA Discharge VNA/Hospice/Home Care(v001) : [facility] [place] Patient Left Unit Via : Wheelchair Patient Accompanied Off Unit with : Other: transport staff DC Instructions Provided & Signed by Pt : Yes Patient Understands D/C Instructions : Yes Patient Instructions Discharge Signed : Yes Did Pt have Specialty Bed or Wound Vac : No Dorita Ruiz RN - 07/02/2023 11:47 EST * Marilia Murray MD: PERFORM Event Display: Discharge/Transfer Note Hospital Authored Date: [id number] Patient: ??DENISE ADAM ? Age:??83 Years?Sex:??Female?:??1940?? Patient Information Discharge Location: A Primary Care Physician: Kelly STOVER, Jerman De León Admit Date/Time: 06/28/23 20:12 Discharge Disposition Discharge Disposition: Home with Home Health Discharge Diagnosis Sigmoid diverticulitis (K57.32) Cholecystostomy care (Z43.4) Left main coronary artery disease (I25.10) HTN (hypertension) (I10) Anxiety (F41.9) Hypothyroidism (E03.9) Abnormal urinalysis (R82.90) Colitis, Clostridium difficile (A04.72) Diarrhea (R19.7) Diverticulitis (K57.92) Fever (R50.9) Thickened endometrium (R93.89) ?? _ Discharge Medications Aspirin (aspirin 81 [...] (levothyroxine 75 mcg (0.075 mg) oral tablet)?1?tab(s)?75?Microgram?ByMouth?Daily Metronidazole (metroNIDAZOLE 500 mg oral tablet)?1?tab(s)?500?Milligram?By Mouth?Every 8 hours?for 8?Days?do not drink alcoholmay take with food to minimize abdominal discom fort Multivitamin (Super B Complex Vitamin B Complex oral tablet)?1?tab(s)?By Mouth?Daily Nortriptyline (nortriptyline 50 mg oral capsule)?50?Milligram?1?capsule?By Mouth?Daily Simvastatin (simvastatin 40 mg oral tablet)?40?Milligram?1?tablet?By Mouth?Daily at bedtime Vancomycin (vancomycin 125 mg oral capsule)?1?capsule?125?Milligram?By Mouth?Every 6 hours?for 13?Days?Doses over 125 mg require ID consult. Indication for Use: C. difficile colitis ? Durable Medical Equipment On Admit VNA/Hospice/Home Care: [facility] [address] [phone] (07/02/23) Discharge recommendations: Home with services (07/01/23) Name of Agency #1: [facility] (07/01/23) Agency [facility]1: [phone] (07/01/23) Service Categories #1: Physical Therapy, Jail (07/01/23) Service Comments #1: You are being discharged today with [facility] to resume services. The agency will contact you to set up a time to visit. They can be reached at [phone] if you don't hear from them. (07/01/23) Ambulatory devices needed: Walker (07/02/23) ? Medications Started Metronidazole (metroNIDAZOLE 500 mg oral tablet)?1?tab(s)?500?Milligram?By Mouth?Every 8 hours?for 8?Days?do not drink alcoholmay take with food to minimize abdominal discom fort Vancomycin (vancomycin 125 mg oral capsule)?1?capsule?125?Milligram?By Mouth?Every 6 hours?for 13?Days?Doses over 125 mg require ID consult. Indication for Use: C. difficile colitis Doses Changed Carvedilol dose reduced Allergies Allergies ?(Active and Proposed Allergies Only) penicillin? (Severity: Unknown severity, Onset: Unknown) ?Comments: doesn't remember reaction ? Future Appointments Sunday 8:30 AM EST ?? Where: Interventional Radiology Status: Pending Objective Assessment and Plan Denise is an 83 y/o female with a past medical history of hypothyroidism, Anxiety, aortic stenosis, CAD, hypertension, recent hospitalization for cholecystostomy placement 1/ presenting with right lower quadrant abdominal pain in the setting of 3 days fever, 2 days nonbloody diarrhea, increasing o utput and darkening color of cholecystostomy tube output, found to have sigmoid diverticulitis requiring IV abx, hospital course complicated by c diff diarrhea, improved, seen by PT and ready for discharge home with services Tolerating diet, diarrhea resolved, no nausea or vomiting. d/w surgery and IR- follow ups as below. VNA recommendations for flushing, patient already has VNA ??Pt was planned to DC yesterday but pt reported weakness, not feeling well so was monitored overnight. Feeling better today, no ne wcomplain. S he will be discharge hannah etoday. VNA has been set up by CM . Objective ??Assessment and Plan ??Sigmoid diverticulitis (K57.32): ??Colitis, Clostridium difficile (A04.72):?? Presents with abdominal pain, decreased PO intake Recently admitted for cholecystitis, which was tx with cholecystostomy tube given high risk surgery Afebrile while inpt, hemodynamically stable, no signs of abscess on imaging, does have a leukocytosis, improving CT abdomen showing sigmoid diverticulitis Given that she was on Augmentin when she was dx with diverticulitis, this is considered outpatient tx failure requiring IV abx recevied ceftriaxone now discontinued has had small BM, not diarrhea per RN, no blood ?? RECS PO vancomycin for 14 days course 125 mg QID Isolation for C.diff, d/w infectious disease- 48 hours of formed stool and then dc isolation, wash hands with soap and water and use bleach based headlight adjuster Dc on flagyl 800 mg q8 to complete 10 days return for worsening abdominal pain, fever ?Abnormal urinalysis (R82.90):?? UA showing specific gravity greater than 1.05, 31 white blood cells, 18 RBCs, 1+ leukocytes pt does not have urinary symptoms urine culture <10,000 CFU ?Recent Cholecystitis ??Cholecystostomy care (Z43.4): recently dc on 06/20 after being found to have acute cholecystitis Surgery had recommended cholecystostomy tube given high risk surgery d/t cardiac hx She was initially tx with CTX and flagyl and switched to Augmentin to complete a course of 7 days alk phos of 197, AST 22, ALT 24, T. bili 0.3, direct bili less than 1.2 CT abdomen/pelvis showed interval placement of the cholecystostomy tube with a decrease in gallbladder distention and wall thickening, residual pericholecystic fluid remains ?? RECS f/u with Dr. Fajardo?? in 1-2 weeks, please call office follow up with IR as scheduled Jul 30 VNA for flushes instructions per IR: ??flush once a day sterile technique with NS 10cc and then pull back ?Left main coronary artery disease (I25.10): ??? Continue aspirin 81 mg daily ??? Continue simvastatin 40 mg daily ?HTN (hypertension) (I10):? coreg reduced to 12.5 mg twice daily ?Anxiety - F41.9 ??? Continue clonazepam 0.5 mg twice daily ??? Continue nortriptyline 50 mg daily ?Hypothyroidism (E03.9): ??? TSH 2.88 ??? Continue levothyroxine 75 mcg daily ?Thickened endometrium (R93.89) ? CT abdomen/pelvis: marked thickening of the endometrium unchanged from prior study with consideration for ultrasound for further evaluation ?? . Physical Exam GENERAL: In no apparent distress HEENT: Head normocephalic, PERRL CARDIOVASCULAR: Normal rate and rhythm, RESPIRATORY: Lungs clear to auscultation, no wheezes , no crackles ABDOMEN/GI: Nondistended, soft, C tube??in place with green bile?? EXTREMITIES: No pitting edema LADLE PULLER: Alert and oriented x 3.Non focal neuro exam. ? Consultants ID IR Surgery Pending Results Add On Lab Order ordered on 06/28/2023 Add On Lab Order ordered on 06/28/2023 Patient Education Titles Anatomy of the Digestive System?? Discharge Instructions for Diverticulitis?? Discharge Instructions for Diverticulitis?? Diverticulitis?? Follow-Up Appointments Added Follow Up ?Time Frame ?Comments Kelly STOVER, Jerman Fajardo MD, Ana?1 to 2 weeks?please call office for surgery follow up Kelly STOVER, Jerman De León?1 week: call to discuss follow up visit Patient Instructions You were admitted for diverticulitis,??after outpatient antibiotics did not work You are started on IV antibiotics here, also found to have??a bacterial infection, C. difficile diarrhea, started on antibiotics for this You will be discharged on vancomycin orally, as well as metronidazole??orally for antibiotics Please follow-up??with??the surgeons as scheduled for your gallbladder, as well as your PCP within the week Please have your PCP recheck your labs within 1 week Please return for fevers, worsening abdominal pain, nausea, vomiting, blood in stool ?? VNA instructions for c tube:??flush once a day sterile technique with NS 10cc and then pull back ?? 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 Post Discharge Care Discharge ?07/02/23 9:30:00 EST Discharge Prescriptions ?ePrescribed, 07/01/23 14:53:00 EST Home Health Face to Face ^HomeHealthFTF Results Discharge Labs BLOOD COUNT & DIFF WBC 7.8 k/mm3 ()?? 07/02/2023 00:19 RBC 3.83 m/mm3 (Low)?? 07/02/2023 00:19 Hgb 10.8 Gm/dL (Low)?? 07/02/2023 00:19 Hct 34.1 % (Low)?? 07/02/2023 00:19 MCV 89.0 femtoliters ()?? 07/02/2023 00:19 MCH 28.2 pg ()?? 07/02/2023 00:19 MCHC 31.7 g/dL (Low)?? 07/02/2023 00:19 Platelet Count 345 k/mm3 ()?? 07/02/2023 00:19 RDW-SD 40.6 femtoliters ()?? 07/02/2023 00:19 MPV 9.7 femtoliters ()?? 07/02/2023 00:19 Nucleated RBC (Automated) 0.0 #/100 WBC'S ()?? 07/02/2023 00:19 Abs. NRBC 0.0 k/mm3 ()?? 07/02/2023 00:19 Abs. Neut 4.5 k/mm3 ()?? 07/02/2023 00:19 Abs. Lymph 2.2 k/mm3 ()?? 07/02/2023 00:19 Abs. Coosa 0.7 k/mm3 ()?? 07/02/2023 00:19 Abs. Eo 0.3 k/mm3 ()?? 07/02/2023 00:19 Abs. Baso 0.1 k/mm3 ()?? 07/02/2023 00:19 Neut % 57.4 % ()?? 07/02/2023 00:19 Lymph % 27.9 % ()?? 07/02/2023 00:19 Coosa % 9.0 % ()?? 07/02/2023 00:19 Eos % 4.4 % ()?? 07/02/2023 00:19 Baso % 0.8 % ()?? 07/02/2023 00:19 Imm Gran 0.5 % ()?? 07/02/2023 00:19 Abs. Imm Gran 0.0 k/mm3 ()?? 07/02/2023 00:19 ?? CHEM GENERAL Sodium 142 mmol/L ()?? 07/02/2023 00:19 Potassium 4.1 mmol/L ()?? 07/02/2023 00:19 Chloride 109 mmol/L (High)?? 07/02/2023 00:19 Bicarbonate Level 25 mmol/L ()?? 07/02/2023 00:19 Anion Gap 8 ()?? 07/02/2023 00:19 Glucose Level 99 mg/dL ()?? 07/01/2023 02:38 Glucose, POC 93 mg/dL ()?? 07/01/2023 16:10 BUN 11 mg/dL ()?? 07/02/2023 00:19 Creatinine-Blood 1.0 mg/dL ()?? 07/02/2023 00:19 Estimated GFR Creatinine 59 ML/MIN/1.73 M2 ()?? 07/02/2023 00:19 Calcium 8.6 mg/dL ()?? 07/01/2023 02:38 Phosphorus 3.0 mg/dL ()?? 07/01/2023 02:38 Magnesium 2.1 mg/dL ()?? 07/01/2023 02:38 Protein, Total 6.0 Gm/dL (Low)?? 06/29/2023 06:40 Albumin 3.4 Gm/dL ()?? 06/29/2023 06:40 Alkaline Phosphatase 154 units/L (High)?? 06/29/2023 06:40 AST (SGOT) 12 units/L ()?? 06/29/2023 06:40 ALT (SGPT) 17 units/L ()?? 06/29/2023 06:40 Bilirubin, Total 0.3 mg/dL ()?? 06/29/2023 06:40 Bilirubin, Direct <0.2 mg/dL ()?? 06/29/2023 06:40 Bilirubin, Indirect Direct bilirubin is less than the measureable limit. Therefore, indirect mg/dL ()?? 06/29/2023 06:40 ? ENDOCRINE/TUMOR MARKER TSH 2.88 uIU/mL ()?? 06/28/2023 11:50 ? SEROLOGY INF DISEASE C.difficile Toxin POSITIVE. C.DIFFICILE BACTERIAL ANTIGEN AND TOXIN DETECTED. ALL TEST (Abnormal)?? 06/29/2023 07:43 ? UA/URINALYSIS Appear/Color, Urine LIGHT YELLOW ()?? 06/28/2023 18:00 Specific Kittery, Urine >1.050 (High)?? 06/28/2023 18:00 pH, Urine 8.0 ()?? 06/28/2023 18:00 Albumin, Urine 1+ (Abnormal)?? 06/28/2023 18:00 Glucose, Urine NEGATIVE ()?? 06/28/2023 18:00 Ketones, Urine NEGATIVE ()?? 06/28/2023 18:00 Bilirubin, Urine NEGATIVE ()?? 06/28/2023 18:00 Hemoglobin, Urine 1+ (Abnormal)?? 06/28/2023 18:00 Nitrite, Urine NEGATIVE ()?? 06/28/2023 18:00 Leukocyte, Urine 1+ (Abnormal)?? 06/28/2023 18:00 Urobilinogen NORMAL mg/dL ()?? 06/28/2023 18:00 WBC's, Urine 31 /HPF (High)?? 06/28/2023 18:00 RBC's, Urine 18 /HPF (High)?? 06/28/2023 18:00 Squamous Epith 6 /HPF ()?? 06/28/2023 18:00 Mucus SLIGHT /LPF ()?? 06/28/2023 18:00 Hold Urine Culture Testing available 48 hours from time of collection. ()?? 06/28/2023 18:00 ?? URINE OTHER Est Creatinine Clearance 34.32 mL/min ()?? 07/02/2023 02:56 ? VIROLOGY Influenza A PCR NEGATIVE ()?? 06/28/2023 11:53 Influenza B PCR NEGATIVE ()?? 06/28/2023 11:53 RSV PCR NEGATIVE ()?? 06/28/2023 11:53 COVID-19 PCR Specimen Source NASAL ()?? 06/28/2023 11:53 COVID-19 PCR Result NEGATIVE ()?? 06/28/2023 11:53 ? 40 _ minutes spent on discharge * Dorita Ruiz RN: PERFORM Event Display: Patient Education/Instruction Authored Date: [id number] Inpatient Adult Discharge Instructions [address] [address] Name: DENISE ADAM : 1940 Visit: 06/28/2023 20:12:00 Current Date: 07/02/2023 09:54 Account: [id number] Inpatient Adult Discharge Instructions We would like [...] and their families. Surveys are administered by [employer]. ?? If further treatment with your primary care physician or another doctor is recommended, it is important for you to keep the appointment. Call your primary care physician or return to the Emergency Department immediately if your condition worsens, fails to improve, or new symptoms develop. If you need to find a doctor, you can call [facility] Link for a referral at [phone] or toll free at [phone] [phone]) or log in to [email or web address].. ?? [facility], in keeping with [facility] guidance, no longer requires face masks [...] a health care edita of your choosing. [employer] is a website that allows you to securely view your medical information including your hospital discharge summary, office visit summaries, medications and follow-up visits. You can also request appointments, renew medications, and request access to your medical information using a health care edita of your choosing, or just ask a question. You can enroll at [email or web address] or register during your next office visit. You have been discharged from [facility], Patient Care Unit: D6A. If you have any questions regarding these instructions after you leave, please call us and we will be happy to assist you. [facility] Your Care Team Attending Physician Marilia Murray MD Consulting Providers Terrell Owens MD Discharging Providers Marilia Murray MD Reason for Admission AOx4 coming from home had a choleysystectomy 1 week ago, since then increasing abdo pain and feversw. diarrhea. Your Diagnosis Diverticulitis Diarrhea Fever Sigmoid diverticulitis Cholecystostomy care Left main coronary artery disease HTN (hypertension) Anxiety Hypothyroidism Colitis, Clostridium difficile Abnormal urinalysis Thickened endometrium Tests Performed Below is a partial list of the tests performed during your hospitalization. You may have had other tests and procedures not included in this list. Please discuss all test results with your provider. Basic Metabolic Panel BUN C. difficile Rapid Toxin Assay CBC CBC w/ Differential COVID-19, RSV, and Flu A/B, Rapid PCR Creatinine Electrolytes GLUCOSE POC Hepatic Function Panel LFT's Magnesium Level Mg Level Phosphorus Level TSH with T4 Reflex (Adults Only) Urinalysis w/hold for Urine Culture CT Abd/Pelvis W/ IV Contrast Only Primary Care Provider Kelly STOVER, Jerman De León Advance Directive Health Care Proxy on File Yes - Health Care Proxy Discharge Vitals Temperature: 98 DegF Height: 157.5 cm Pulse Rate: 72 bpm Weight: 69 kg Respiratory Rate: 17 br/min Body Mass Index:??27.82 kg/m2??High Systolic Blood Pressure: 116 mm Hg Body surface area: 1.74 Diastolic Blood Pressure: 58 mm Hg ?? Oxygen Saturation: 97 % ?? Studies Pending All tests and labs ordered during this hospital stay have been completed unless listed below. Please discuss all pending results with your provider listed above in these instructions. ?? Add On Lab Order What to do next Instructions From Your Doctor You were admitted for diverticulitis,??after outpatient antibiotics did not work You are started on IV antibiotics here, also found to have??a bacterial infection, C. difficile diarrhea, started on antibiotics for this You will be discharged on vancomycin orally, as well as metronidazole??orally for antibiotics Please follow-up??with??the surgeons as scheduled for your gallbladder, as well as your PCP within the week Please have your PCP recheck your labs within 1 week Please return for fevers, worsening abdominal pain, nausea, vomiting, blood in stool ?? VNA instructions for c tube:??flush once a day sterile technique with NS 10cc and then pull back ?? 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 Discharge Orders Scheduled Follow-Up Appointments Sunday 8:30 AM EST ?? Where: Interventional Radiology Status: Pending You Need to Schedule the Following Appointments Follow Up with??Kelly STOVER, Jerman De León Where: [address] [place] [address]- Follow Up with??Ana Fajardo MD When:??Within 1 to 2 weeks Why: please call office for surgery follow up Follow Up with??Jerman Mendoza MD When:??Within 1 week: call to discuss follow up visit Where: [address] [place] [address]- Discharge Medications DENISE ADAM :1940 Visit Date:06/28/2023 Medications: Please continue your medications until treatment is completed or stopped by your provider. Medications not listed below should be discontinued. Discuss any questions related to medications with your provider. What How Much When Instructions Next Dose New Metronidazole (metroNIDAZOLE 500 mg oral tablet) 1 tab(s) Oral Every 8 hours Duration: 8 Days do not drink alcohol ?? may take with food to minimize abdominal discomfort ?? Pickup at [facility]/pharmacy #[id number] 07/02 4PM New Vancomycin (vancomycin 125 mg oral capsule) 1 capsule Oral Every 6 hours Duration: 13 Days Doses over 125 mg require ID consult. Indication for Use: C. difficile colitis ?? Pickup at [facility]/pharmacy #[id number] 07/02 4pm Changed Carvedilol (Coreg 25 mg oral tablet) 0.5 tab(s) Oral Twice a day Duration: 30 Days Pt is on Nebivolol 10 mg po daily. Conversion is Coreg 25 bid. May adjust dose per evidence. ?? 07/02 8pm Unchanged Aspirin (aspirin 81 mg oral delayed release tablet) 1 tab(s) Oral Daily 07/03 9AM Unchanged Cholecalciferol (cholecalciferol 1000 intl units oral tablet) 1 tab(s) Oral Daily 07/03 9AM Unchanged Clonazepam (clonazePAM 0.5 mg oral tablet) 1 tab(s) Oral Twice a day Duration: 2 Days 07/02 9PM Unchanged Docusate (Docusate Sodium Capsule) 100 Milligram Oral Twice a day as needed for Constipation 07/02 9PM as?? needed Unchanged Levothyroxine (levothyroxine 75 mcg (0.075 mg) oral tablet) 1 tab(s) Oral Daily 07/03 9AM Unchanged Multivitamin (Super B Complex Vitamin B Complex oral tablet) 1 tab(s) Oral Daily 07/03 9AM Unchanged Nortriptyline (nortriptyline 50 mg oral capsule) 1 capsule Oral Daily 07/03 9AM Unchanged Simvastatin (simvastatin 40 mg oral tablet) 1 tab(s) Oral Daily at Bedtime 07/02 9PM Pharmacy Information [facility]/pharmacy #[id number]: [address], [place] [id number] [phone] Test Results Below is a partial list of the most recent Laboratory test results done prior to this discharge. You may have had other tests and procedures not included in this list. Please discuss all test resultswith your provider. Est Creatinine Clearance - 34.32 mL/min (07/02/2023) Basic Metabolic Panel (07/01/2023) ???Sodium - 141 mmol/L???Potassium - 3.5 mmol/L???Chloride - 107 mmol/L???Bicarbonate Level - 25 mmol/L???Anion Gap - 9???Glucose Level - 99 mg/dL???BUN - 10 mg/dL???Creatinine-Blood - 0.9 mg/dL???Estimated GFR Creatinine - 66 ML/MIN/1.73 M2???Calcium - 8.6 mg/dL BUN (07/02/2023) ???BUN - 11 mg/dL C. difficile Rapid Toxin Assay (06/29/2023) ???C.difficile Toxin - POSITIVE. C.DIFFICILE BACTERIAL ANTIGEN AND TOXIN DETECTED. ALL TEST CBC (07/01/2023) ???WBC - 11.2 k/mm3???RBC - 3.90 m/mm3???Hgb - 11.0 Gm/dL???Hct - 34.1 %???MCV - 87.4 femtoliters???MCH - 28.2 pg???MCHC - 32.3 g/dL???Platelet Count - 302 k/mm3???RDW-SD - 40.3 femtoliters???MPV - 9.1 femtoliters???Nucleated RBC (Automated) - 0.0 #/100 WBC'S???Abs. NRBC - 0.0 k/mm3 CBC w/ Differential (07/02/2023) ???WBC - 7.8 k/mm3???RBC - 3.83 m/mm3???Hgb - 10.8 Gm/dL???Hct - 34.1 %???MCV - 89.0 femtoliters???MCH - 28.2 pg???MCHC - 31.7 g/dL???Platelet Count - 345 k/mm3???RDW-SD - 40.6 femtoliters???MPV - 9.7 femtoliters???Nucleated RBC (Automated) - 0.0 #/100 WBC'S???Abs. NRBC - 0.0 k/mm3???Abs. Neut - 4.5 k/mm3???Abs. Lymph - 2.2 k/mm3???Abs. Coosa - 0.7 k/mm3???Abs. Eo - 0.3 k/mm3???Abs. Baso - 0.1 k/mm3???Neut % - 57.4 %???Lymph % - 27.9 %???Coosa % - 9.0 %???Eos % - 4.4 %???Baso % - 0.8 %???Imm Gran- 0.5 %???Abs. Imm Gran - 0.0 k/mm3 COVID-19, RSV, and Flu A/B, Rapid PCR (06/28/2023) ???Influenza A PCR - NEGATIVE???Influenza B PCR - NEGATIVE???RSV PCR - NEGATIVE???COVID-19 PCR Specimen Source - NASAL???COVID-19 PCR Result - NEGATIVE Creatinine (07/02/2023) ???Creatinine-Blood - 1.0 mg/dL???Estimated GFR Creatinine - 59 ML/MIN/1.73 M2 Electrolytes (07/02/2023) ???Sodium - 142 mmol/L???Potassium - 4.1 mmol/L???Chloride - 109 mmol/L???Bicarbonate Level - 25 mmol/L???Anion Gap - 8 GLUCOSE POC (07/01/2023) ???Glucose, POC - 93 mg/dL Hepatic Function Panel (06/28/2023) ???Protein, Total - 6.5 Gm/dL???Albumin - 3.7 Gm/dL???Alkaline Phosphatase - 197 units/L???AST (SGOT) - 22 units/L? ?ALT (SGPT) - 24 units/L? ?Bilirubin, Total - 0.3 mg/dL? ?Bilirubin, Direct - <0.2 mg/dL???Bilirubin, Indirect - Direct bilirubin is less than the measureable limit. Therefore, indirect LFT's (06/29/2023) ???Protein, Total - 6.0 Gm/dL???Albumin - 3.4 Gm/dL???Alkaline Phosphatase - 154 units/L???AST (SGOT) - 12 units/L? ?ALT (SGPT) - 17 units/L? ?Bilirubin, Total - 0.3 mg/dL? ?Bilirubin, Direct - <0.2 mg/dL???Bilirubin, Indirect - Direct bilirubin is less than the measureable limit. Therefore, indirect Magnesium Level (06/29/2023) ???Magnesium - 2.2 mg/dL Mg Level (07/01/2023) ???Magnesium - 2.1 mg/dL Phosphorus Level (07/01/2023) ???Phosphorus - 3.0 mg/dL TSH with T4 Reflex (Adults Only) (06/28/2023) ???TSH - 2.88 uIU/mL Urinalysis w/hold for Urine Culture (06/28/2023) ? ?Appear/Color, Urine - LIGHT YELLOW? ?Specific Kittery, Urine - >1.050? ?pH, Urine - 8.0? ?Albumin, Urine - 1+???Glucose, Urine - NEGATIVE???Ketones, Urine - NEGATIVE???Bilirubin, Urine - NEGATIVE???Hemoglobin, Urine - 1+???Nitrite, Urine - NEGATIVE???Leukocyte, Urine - 1+???Urobilinogen - NORMAL???WBC's, Urine - 31 /HPF???RBC's, Urine - 18 /HPF???Squamous Epith - 6 /HPF???Mucus - SLIGHT???Hold Urine Culture - Testing available 48 hours from time of collection. Allergies (NKA means No Known Allergies) penicillin Problems Active Problems??(4) Anxiety?? HTN (hypertension)?? Hypothyroidism?? Left main coronary artery disease?? Education Materials Below is the list of Educational Leaflet Providered with your Discharge Instructions. Anatomy of the Digestive System?? Discharge Instructions for Diverticulitis?? Discharge Instructions for Diverticulitis?? Diverticulitis?? Valuables and Belongings I fully understand and agree that [facility] accepts no responsibility for all my [...] ?? Date for Pt to Sign Valuables/Belongings: 06/30/23 08:54:00 ?? Other Discharge Information ? Case Management Discharge Plan?? Discharge Plan?? Discharge Agency Information?? Discharge Level of Care at Discharge: Hospice Medical Facility Name of Agency #1: [facility] [place] [facility] Mark Up Designer #1: [phone] ?? Service Categories #1: Physical Therapy, Jail ?? Service Comments #1: You are being discharged today with [facility] to resume services. The agency will contact you to set up a time to visit. They can be reached at [phone] if you don't hear from them. ?? Pulmonary Rehab Status?? Pulmonary Rehab Discharge [...] are strongly encouraged to quit. Please call [facility] at [phone] or [phone] ([phone]) or log in to [email or web address] for referrals to smoking cessation programs. ?? 747 Suicide & Crisis Lifeline is available 08/01 if you or someone you know needs to find a reason to keep living. By calling 168 you'll be connected to a skilled, trained counselor at a crisis center in your area. INPATIENT DISCHARGE INSTRUCTIONS SIGNATURE PAGE DENISE ADAM Location:[facility] Registration Date and Time:06/28/2023 20:12 EST Primary Care Physician: Kelly STOVER, Jerman De León, Attending Physician: Marilia Murray MD, I DENISE ADAM, have received the above patient education materials/instructions and have verbalized understanding. If ambulance or transport services are being used I further acknowledge being given a choice of service. ?? If you need to contact me, please call me at this number: . Patient/Hand Mica Plate Layer Name: Patient/Hand Mica Plate Layer Signature: Relationship to Patient: Witness Name/Signature: Date: * Albina Rivera RN: PERFORM Event Display: Patient Education/Instruction Authored Date: [id number] Inpatient Adult Discharge Instructions [address] [address] Name: DENISE ADAM : 1940 Visit: 06/28/2023 20:12:00 Current Date: 07/01/2023 15:23 Account: [id number] Inpatient Adult Discharge Instructions We would like [...] and their families. Surveys are administered by [employer] ?? If further treatment with your primary care physician or another doctor is recommended, it is important for you to keep the appointment. Call your primary care physician or return to the Emergency Department immediately if your condition worsens, fails to improve, or new symptoms develop. If you need to find a doctor, you can call [facility] Link for a referral at [phone] or toll free at [phone] or log in to [email or web address].. ?? [facility], in keeping with [facility] guidance, no longer requires face masks [...] a health care edita of your choosing. [employer] is a website that allows you to securely view your medical information including your hospital discharge summary, office visit summaries, medications and follow-up visits. You can also request appointments, renew medications, and request access to your medical information using a health care edita of your choosing, or just ask a question. You can enroll at [email or web address] or register during your next office visit. You have been discharged from [facility], Patient Care Unit: D6A. If you have any questions regarding these instructions after you leave, please call us and we will be happy to assist you. [facility] Your Care Team Attending Physician Becca Barton DO Consulting Providers Graciela STOVER, Terrell Powell Discharging Providers Becca Barton DO Reason for Admission AOx4 coming from home had a choleysystectomy 1 week ago, since then increasing abdo pain and feversw. diarrhea. Your Diagnosis Diverticulitis Diarrhea Fever Sigmoid diverticulitis Cholecystostomy care Left main coronary artery disease HTN (hypertension) Anxiety Hypothyroidism Colitis, Clostridium difficile Abnormal urinalysis Thickened endometrium Tests Performed Below is a partial list of the tests performed during your hospitalization. You may have had other tests and procedures not included in this list. Please discuss all test results with your provider. Basic Metabolic Panel C. difficile Rapid Toxin Assay CBC CBC w/ Differential COVID-19, RSV, and Flu A/B, Rapid PCR Hepatic Function Panel LFT's Magnesium Level Mg Level Phosphorus Level TSH with T4 Reflex (Adults Only) Urinalysis w/hold for Urine Culture CT Abd/Pelvis W/ IV Contrast Only Primary Care Provider Kelly STOVER, Jerman De León Advance Directive Health Care Proxy on File Yes - Health Care Proxy Discharge Vitals Temperature: 97.2 DegF Height: 157.5 cm Pulse Rate: 66 bpm Weight: 69 kg Respiratory Rate: 16 br/min Body Mass Index:??27.82 kg/m2??High Systolic Blood Pressure: 120 mm Hg Body surface area: 1.74 Diastolic Blood Pressure: 68 mm Hg ?? Oxygen Saturation: 98 % ?? Studies Pending All tests and labs ordered during this hospital stay have been completed unless listed below. Please discuss all pending results with your provider listed above in these instructions. ?? Add On Lab Order What to do next Instructions From Your Doctor You were admitted for diverticulitis,??after outpatient antibiotics did not work You are started on IV antibiotics here, also found to have??a bacterial infection, C. difficile diarrhea, started on antibiotics for this You will be discharged on vancomycin orally, as well as metronidazole??orally for antibiotics Please follow-up??with??the surgeons as scheduled for your gallbladder, as well as your PCP within the week Please have your PCP recheck your labs within 1 week Please return for fevers, worsening abdominal pain, nausea, vomiting, blood in stool ?? VNA instructions for c tube:??flush once a day sterile technique with NS 10cc and then pull back ?? 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 Discharge Orders Scheduled Follow-Up Appointments Sunday 8:30 AM EST ?? Where: Interventional Radiology Status: Pending You Need to Schedule the Following Appointments Follow Up with??Ana Fajardo MD When:??Within 1 to 2 weeks Why: please call office for surgery follow up Follow Up with??Jerman Mendoza MD When:??Within 1 week: call to discuss follow up visit Where: [address] [place] [address]- Discharge Medications DENISE ADAM :1940 Visit Date:06/28/2023 Medications: Please continue your medications until treatment is completed or stopped by your provider. Medications not listed below should be discontinued. Discuss any questions related to medications with your provider. What How Much When Instructions Next Dose New Metronidazole (metroNIDAZOLE 500 mg oral tablet) 1 tab(s) Oral Every 8 hours Duration: 8 Days do not drink alcohol ?? may take with food to minimize abdominal discomfort ?? Pickup at [facility]/pharmacy #[id number] 07/01 5 PM New Vancomycin (vancomycin 125 mg oral capsule) 1 capsule Oral Every 6 hours Duration: 13 Days Doses over 125 mg require ID consult. Indication for Use: C. difficile colitis ?? Pickup at [facility]/pharmacy #[id number] 07/01 9 PM Changed Carvedilol (Coreg 25 mg oral tablet) 0.5 tab(s) Oral Twice a day Duration: 30 Days Pt is on Nebivolol 10 mg po daily. Conversion is Coreg 25 bid. May adjust dose per evidence. ?? 07/01 9 PM Unchanged Aspirin (aspirin 81 mg oral delayed release tablet) 1 tab(s) Oral Daily 07/02 9 AM Unchanged Cholecalciferol (cholecalciferol 1000 intl units oral tablet) 1 tab(s) Oral Daily 07/02 9 AM Unchanged Clonazepam (clonazePAM 0.5 mg oral tablet) 1 tab(s) Oral Twice a day Duration: 2 Days 07/01 9 PM Unchanged Docusate (Docusate Sodium Capsule) 100 Milligram Oral Twice a day as needed for Constipation As Needed Unchanged Levothyroxine (levothyroxine 75 mcg (0.075 mg) oral tablet) 1 tab(s) Oral Daily 07/02 9 AM Unchanged Multivitamin (Super B Complex Vitamin B Complex oral tablet) 1 tab(s) Oral Daily 07/02 7 AM Unchanged Nortriptyline (nortriptyline 50 mg oral capsule) 1 capsule Oral Daily 07/02 9 AM Unchanged Simvastatin (simvastatin 40 mg oral tablet) 1 tab(s) Oral Daily at Bedtime 07/01 9 PM Pharmacy Information [facility]/pharmacy #[id number]: [address] [facility] [place] [phone] Test Results Below is a partial list of the most recent Laboratory test results done prior to this discharge. You may have had other tests and procedures not included in this list. Please discuss all test resultswith your provider. Est Creatinine Clearance - 38.13 mL/min (07/01/2023) Basic Metabolic Panel (07/01/2023) ???Sodium - 141 mmol/L???Potassium - 3.5 mmol/L???Chloride - 107 mmol/L???Bicarbonate Level - 25 mmol/L???Anion Gap - 9???Glucose Level - 99 mg/dL???BUN - 10 mg/dL???Creatinine-Blood - 0.9 mg/dL???Estimated GFR Creatinine - 66 ML/MIN/1.73 M2???Calcium - 8.6 mg/dL C. difficile Rapid Toxin Assay (06/29/2023) ???C.difficile Toxin - POSITIVE. C.DIFFICILE BACTERIAL ANTIGEN AND TOXIN DETECTED. ALL TEST CBC (07/01/2023) ???WBC - 11.2 k/mm3???RBC - 3.90 m/mm3???Hgb - 11.0 Gm/dL???Hct - 34.1 %???MCV - 87.4 femtoliters???MCH - 28.2 pg???MCHC - 32.3 g/dL???Platelet Count - 302 k/mm3???RDW-SD - 40.3 femtoliters???MPV - 9.1 femtoliters???Nucleated RBC (Automated) - 0.0 #/100 WBC'S???Abs. NRBC - 0.0 k/mm3 CBC w/ Differential (06/28/2023) ???WBC - 16.5 k/mm3???RBC - 4.40 m/mm3???Hgb - 12.7 Gm/dL???Hct - 40.1 %???MCV - 91.1 femtoliters???MCH - 28.9 pg???MCHC - 31.7 g/dL???Platelet Count - 356 k/mm3???RDW-SD - 41.7 femtoliters???MPV - 9.2 femtoliters???Nucleated RBC (Automated) - 0.0 #/100 WBC'S???Abs. NRBC - 0.0 k/mm3???Abs. Neut - 13.7 k/mm3???Abs. Lymph - 1.4 k/mm3???Abs. [place] - 1.0 k/mm3???Abs. Eo - 0.2 k/mm3???Abs. Baso - 0.1 k/mm3???Neut % - 83.0 %???Lymph % - 8.4 %???[place] % - 5.9 %???Eos % - 1.4 %???Baso % - 0.4 %???Imm Gran - 0.9 %???Abs. Imm Gran - 0.2 k/mm3 COVID-19, RSV, and Flu A/B, Rapid PCR (06/28/2023) ???Influenza A PCR - NEGATIVE???Influenza B PCR - NEGATIVE???RSV PCR - NEGATIVE???COVID-19 PCR Specimen Source - NASAL???COVID-19 PCR Result - NEGATIVE Hepatic Function Panel (06/28/2023) ???Protein, Total - 6.5 Gm/dL???Albumin - 3.7 Gm/dL???Alkaline Phosphatase - 197 units/L???AST (SGOT) - 22 units/L? ?ALT (SGPT) - 24 units/L? ?Bilirubin, Total - 0.3 mg/dL? ?Bilirubin, Direct - <0.2 mg/dL???Bilirubin, Indirect - Direct bilirubin is less than the measureable limit. Therefore, indirect LFT's (06/29/2023) ???Protein, Total - 6.0 Gm/dL???Albumin - 3.4 Gm/dL???Alkaline Phosphatase - 154 units/L???AST (SGOT) - 12 units/L? ?ALT (SGPT) - 17 units/L? ?Bilirubin, Total - 0.3 mg/dL? ?Bilirubin, Direct - <0.2 mg/dL???Bilirubin, Indirect - Direct bilirubin is less than the measureable limit. Therefore, indirect Magnesium Level (06/29/2023) ???Magnesium - 2.2 mg/dL Mg Level (07/01/2023) ???Magnesium - 2.1 mg/dL Phosphorus Level (07/01/2023) ???Phosphorus - 3.0 mg/dL TSH with T4 Reflex (Adults Only) (06/28/2023) ???TSH - 2.88 uIU/mL Urinalysis w/hold for Urine Culture (06/28/2023) ? ?Appear/Color, Urine - LIGHT YELLOW? ?Specific [place], Urine - >1.050? ?pH, Urine - 8.0? ?Albumin, Urine - 1+???Glucose, Urine - NEGATIVE???Ketones, Urine - NEGATIVE???Bilirubin, Urine - NEGATIVE???Hemoglobin, Urine - 1+???Nitrite, Urine - NEGATIVE???Leukocyte, Urine - 1+???Urobilinogen - NORMAL???WBC's, Urine - 31 /HPF???RBC's, Urine - 18 /HPF???Squamous Epith - 6 /HPF???Mucus - SLIGHT???Hold Urine Culture - Testing available 48 hours from time of collection. Allergies (NKA means No Known Allergies) penicillin Problems Active Problems??(4) Anxiety?? HTN (hypertension)?? Hypothyroidism?? Left main coronary artery disease?? Education Materials Below is the list of Educational Leaflet Providered with your Discharge Instructions. Diverticulitis?? Valuables and Belongings I fully understand and agree that [facility] accepts no responsibility for all my [...] ?? Date for Pt to Sign Valuables/Belongings: 06/30/23 08:54:00 ?? Other Discharge Information ? Case Management Discharge Plan?? Discharge Plan?? Discharge Agency Information?? Discharge Level of Care at Discharge: Hospice Medical Facility Name of Agency #1: [facility] Discharge [facility]/Hospice/Home Care: [facility] Agency [employer]er #1: [phone] ?? Service Categories #1: Physical Therapy, Jail ?? Service Comments #1: You are being discharged today with [facility] to resume services. The agency will contact you to set up a time to visit. They can be reached at [phone] if you don't hear from them. ?? Pulmonary Rehab Status?? Pulmonary Rehab Discharge Status?? Respiratory Rate: 16 br/min ? Common Emergency Awareness Tips IS [...] are strongly encouraged to quit. Please call [facility] at [phone] or [phone] ([phone]) or log in to [email or web address] for referrals to smoking cessation programs. ?? 150 Suicide & Crisis Lifeline is available 08/01 if you or someone you know needs to find a reason to keep living. By calling 856 you'll be connected to a skilled, trained counselor at a crisis center in your area. INPATIENT DISCHARGE INSTRUCTIONS SIGNATURE PAGE DENISE ADAM Location:[facility] Registration Date and Time:06/28/2023 20:12 EST Primary Care Physician: Jose Mendoza MDtik De León, Attending Physician: Becca Barton DO, I DENISE ADAM, have received the above patient education materials/instructions and have verbalized understanding. If ambulance or transport services are being used I further acknowledge being given a choice of service. ?? If you need to contact me, please call me at this number: . Patient/Hand Mica Plate Layer Name: Patient/Hand Mica Plate Layer Signature: Relationship to Patient: Witness Name/Signature: Date: * Albina Rivera RN: PERFORM Event Display: Patient Education Leaflets Authored Date: [id number] Anatomy of the Digestive System ?? 52942 Anatomy of the Digestive System Food gives the body the energy needed for life. The digestive system breaks food down into basic nutrients that can be used by the body. The digestive tract is a long, muscular tube that extends fromthe mouth through the stomach and intestines to the anus. As food moves along the digestive tract, it's digested. This means it's changed into substances that can be absorbed into the bloodstream. Certain organs (such as the liver, gallbladder, and pancreas) help with this digestion. Parts of food that can't be digested are turned into stool. This is waste material that's passed out of the body. Digestive system The digestive system is made up of the following: ??? The mouth. Takes in food, breaks it into pieces, and begins the digestion process. ??? The esophagus. Moves food from the mouth to the stomach. ??? The stomach. Breaks food down into a liquid mixture. ??? The liver. Makes bile that helps digest fat, removes toxins from blood, and maintains healthy blood sugar levels. ??? The gallbladder. Stores, concentrates, and controls the flow of bile into the small intestine. ??? The pancreas. Makes enzymes that help in digestion. And makes hormones that help control blood sugar. ??? The small intestine. Digests food further. And absorbs nutrients and water from food so they can be used by the body.What's left is passed on to the colon as liquid waste. ??? The large intestine (colon). Absorbs water, salt, and minerals from the waste, forming a solid stool. ??? The rectum. Stores stool until a bowel movement happens. ??? The anus. The opening where stool leaves the body. ?? Last Reviewed Date: 2023 ?? 5967-6702 [employer]. All rights reserved. This information is not intended as a substitute for professional medical care. Always follow your healthcare professional's instructions. ?? * Albina Rivera RN: PERFORM Event Display: Patient Education Leaflets Authored Date: [id number] Discharge Instructions for Diverticulitis ?? 90984 Discharge Instructions for Diverticulitis You have been diagnosed with diverticulitis. This is a condition??in which??small pouches form in your colon (large intestine) and become inflamed or infected. Follow the guidelines below for home care. As you recover Tips for recovery include: ??? Eat a low-fiber diet at first while you recover. Your healthcare provider may??advise a liquid diet.??This gives your bowel a chance to rest so that it can recover. ???Include these foods: flake cereal, mashed potatoes, pancakes, waffles, pasta, white bread, rice, applesauce, bananas, eggs, fish, poultry, tofu, and well-cooked vegetables. ??? Take your medicines??as directed. Don't stop taking the medicines, even if you feel better. ??? Monitor your temperature and report any rise in temperature to your healthcare provider. ??? Take any prescribed antibiotics exactly as directed. Don't miss any and keep taking them even if you feel better.? Drink 6 to 8 glasses of water every day, unless told otherwise. ??? Use a heating pad or hot water bottle to reduce abdominal cramping or pain. ?? Preventing diverticulitis in the future Tips for prevention include: ??? Eat a high-fiber diet. Fiber adds bulk to the stool so that it passes through the large intestine more easily. ??? Keep drinking 6 to 8 glasses of water every day, unless told otherwise. ??? Start an exercise program. Ask your healthcare provider how to get started.You can benefit from simple activities such as walking or gardening. ??? Treat diarrhea with a bland diet. Start with liquids only,??then slowly add fiber over time. ??? Watch for changes in your bowel movements (constipation to diarrhea). ??? Prevent constipation with fiber and add a stool softener if needed.? Get plenty of rest and sleep. ??? If possible, don't take nonsteroidal anti-inflam matory drugs (NSAIDs) such as ibuprofen. They increase the risk of diverticulitis. ?? Follow-up care Make a follow-up appointment, or as advised. You may need a colonoscopy or other imaging test of your colon. ?? When to call your healthcare provider Call your healthcare provider right away if you have any of these: ??? Fever of 100.4??F (38.0??C) or higher, or as advised by your provider ??? Chills ??? Severe cramps in??your belly, most often the lower left side ??? Soreness in??your belly, most often the lower left side ??? Nausea and vomiting ??? Bleeding from your rectum ?? Last Reviewed Date: 2021 ?? [employer]. All rights reserved. This information is not intended as a substitute for professional medical care. Always follow your healthcare professional's instructions. ?? * Albina Rivera RN: PERFORM Event Display: Patient Education Leaflets Authored Date: [id number] Discharge Instructions for Diverticulitis ?? 93918 Discharge Instructions for Diverticulitis You have been diagnosed with diverticulitis. This is a condition??in which??small pouches form in your colon (large intestine) and become inflamed or infected. Follow the guidelines below for home care. As you recover Tips for recovery include: ??? Eat a low-fiber diet at first while you recover. Your healthcare provider may??advise a liquid diet.??This gives your bowel a chance to rest so that it can recover. ???Include these foods: flake cereal, mashed potatoes, pancakes, waffles, pasta, white bread, rice, applesauce, bananas, eggs, fish, poultry, tofu, and well-cooked vegetables. ??? Take your medicines??as directed. Don't stop taking the medicines, even if you feel better. ??? Monitor your temperature and report any rise in temperature to your healthcare provider. ??? Take any prescribed antibiotics exactly as directed. Don't miss any and keep taking them even if you feel better.? Drink 6 to 8 glasses of water every day, unless told otherwise. ??? Use a heating pad or hot water bottle to reduce abdominal cramping or pain. ?? Preventing diverticulitis in the future Tips for prevention include: ??? Eat a high-fiber diet. Fiber adds bulk to the stool so that it passes through the large intestine more easily. ??? Keep drinking 6 to 8 glasses of water every day, unless told otherwise. ??? Start an exercise program. Ask your healthcare provider how to get started.You can benefit from simple activities such as walking or gardening. ??? Treat diarrhea with a bland diet. Start with liquids only,??then slowly add fiber over time. ??? Watch for changes in your bowel movements (constipation to diarrhea). ??? Prevent constipation with fiber and add a stool softener if needed.? Get plenty of rest and sleep. ??? If possible, don't take nonsteroidal anti-inflam matory drugs (NSAIDs) such as ibuprofen. They increase the risk of diverticulitis. ?? Follow-up care Make a follow-up appointment, or as advised. You may need a colonoscopy or other imaging test of your colon. ?? When to call your healthcare provider Call your healthcare provider right away if you have any of these: ??? Fever of 100.4??F (38.0??C) or higher, or as advised by your provider ??? Chills ??? Severe cramps in??your belly, most often the lower left side ??? Soreness in??your belly, most often the lower left side ??? Nausea and vomiting ??? Bleeding from your rectum ?? Last Reviewed Date: 2021 ?? 7729-2006 [employer]. All rights reserved. This information is not intended as a substitute for professional medical care. Always follow your healthcare professional's instructions. ?? Patient Care team information Care Team Personnel Name: Arianna Cali RN Position: [facility] RN Member Role: Primary Care Nurse Name: Shannon Weeks RN Position: [facility] RN Member Role: Primary Care Nurse Name: Gracy Wu RN Position: [facility] RN Member Role: Primary Care Nurse Name: Alma Gray RN Position: [facility] RN Member Role: Primary Care Nurse Name: uLana Odonnell RN Position: [facility] RN Member Role: Primary Care Nurse Name: Jerman Mendoza MD Position: Reference Physician Member Role: PCP Address: Address: [address] [place], [place] [facility] Name: Tucker SANTILLAN Attending Position: [facility] ED Medicine Name: Pham Montgomery Position: [facility] ED [facility] Member Role: Patient Care Provider Name: Cayla Silverman RN Position: [facility] ED RN W/OE and Tasks Member Role: Patient Care Provider Care Team Related Persons Name: MADISYN ADAM Address: [address] Name: ALE ADAM Address: home [address] [place] [address] Name: ARTEM ADAM Address: home [facility]
== END 2023-09-17 17:54 | disposition home or self-care (01) ==
LOC: HO.HOP 14:04
PROVIDERS: PCP Internal Medicine; Visit Provider Clinical Nurse Specialist Psychiatric/Mental Health
DX: F41.1 Generalized anxiety disorder (principal); F33.2 Major depressive disorder, recurrent severe without psychotic features
CPT/HCPCS: 90792

== ENCOUNTER → 2023-09-17 14:04 | Outpatient (BNVA) | payer MEDICARE, SELFPAY | PROVIDERS: PCP Internal Medicine; Visit Provider Clinical Nurse Specialist Psychiatric/Mental Health | DX: F03.90 Unspecified dementia, unspecified severity, without behavioral disturbance, psychotic disturbance, mood disturbance, and anxiety (principal); F33.2 Major depressive disorder, recurrent severe without psychotic features; F41.1 Generalized anxiety disorder; Z71.89 Other specified counseling | CPT/HCPCS: 90792 ==

== ENCOUNTER 2023-10-08 14:21 | Outpatient (AMB) | payer MEDICARE, SELFPAY ==
--- NOTE | 2023-10-08 14:05 | A.OFFPSYCH_ITS ---
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 Pt seen 3 weeks ago and clonazepam increased at that time by 0.25mg at bedtime for a total daily dose of 0.25mg in am and 0. 5mg at bedtime with additional 0.25mg daily if needed for severe panic attack if she is with family or caregiver. Today patient arrives with her son. Her mood is improved; she smiles easily. She reports she is sleeping much better and no panic attacks. she is happy with her medications and denies side effects; she comes to appt today without a walker and has good balance and steady gait. No evidence of sedation; she denies any recent falls. Pt says she saw a neurologist about her memory and he told her she can no longer drive. She is not happy about it and says she does not understand why but says that her son and daughter in law must know something she doesn't. she says she is going back for a follow up witht he neurologist in a month or so and will ask questions. she reports she would like to go to the [employer] [place] at least once a week because she gets lonely at home. She states she will talk to her family about this as she thinks that the [facility] may have a van to pick her up. She denies SI or HI. Past Psychiatric History: Pt reports hx of seeing a psychiatrist and therapist 20 years ago d/t having panic attacks ; she reports not having any in a long time . Pt stated, I was [age] when I moved to [place] with my . We moved away from my family and I started being nervous then. My doctor put me on Nortriptyline when my because I was depressed. It helped my mood. In the winter, I get sad because I can't do anything outside anymore since I'm 83 and can break things easily. When it's warm out, my son and I go [address] in the [place] . Pt reports she used to go to the [employer] prior to COVID but then stopped; she reports keeping busy by cleaning, reading, watching tv and doing cross word puzzles . Pt became tearful when discussing ; pt stated, I'm still not over him passing. I was with him since I was [age] . pt denies any hx of inpatient psychiatric hospitalizations. Pt does not have outpatient psychiatrist or therapist. No hx SIB/SA. Panic attacks: Yes Agoraphobia: No Separation anxiety disorder: No Social phobia: No Specific phobia: No Hypochondriasis: No Body dysmorphic disorder: No Obsessive compulsive disorder: No Generalized anxiety: Yes Post traumatic stress disorder: No Acute stress disorder: No Previous psychiatric history: No Previous inpatient psychiatric hospitalization: No Other previous psychiatric treatment programs: none History of suicidal ideation: No History of suicide attempt: No Medically hospitalized: Yes History of self injurious behavior: No History of violence: No Current/previous psychiatrist: none Current/previous therapist: none Subjective Subjective Subjective Medication Compliance: Yes Side effects from medications: No Review of Systems Medical Review of Systems: unchanged Mental Status Exam Mental Status Exam Patient Appearance: Well Grooomed and Appropriate Patient Orientation: Person, Place and Situation Level of Consciousness: Awake, Appropriate, Alert and Follows Commands Patient Behavior: Appropriate and Cooperative Mood Description: Calm Affect Description: Calm, Happy (smiles easily; expresses range of emotions appropriately) and Sad (about not driving and feeling lonely at home ) Patient Cognition Impaired: Yes Ability to Follow Directions: Good Speech Pattern: Clear Memory Description: Episodic Impaired Hallucinations: None Delusions: Not Present Thought Process: Intact Thought Content: positive for Intact Judgement: Poor (fair to poor- does not understand memory impairment but is doing well with familiar routines at home) Assessment and Plan Assessment & Plan (1) 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 Pts mood much improved with slight increase in clonazepam; sleeping through night and free of panic attacks recommend continue clonazepam 0.25mg in am and 0.5mg at bedtime with a rescue dose of 0.25mg daily if with family or caregiver due to risks of sedation and falls. This ad copy writer spoke to [facility] cardiology who okayed increase in nortriptyline in future if needed for depression but at this time pt mood much improved so I am not inclined to increase due to risk of side effects. Pt and son informed that my recommendation is to continue clonazepam and that she need not return unless change in status but that I would be happy to see her again if there is a change in symptoms or concerns re: side effects. Medications: Refilled clonazepam (1/2 x 0.5 mg) 0.25 mg orally take 0.25 mg in am and 0.5mg at bedtime and may take an additional 0. 25 mg midday as needed for severe anxiety/panic attack PRN when with family/caregiver; 60 tabs 3RF Anxiety Counseling and coordination of Care Medication management counseling: Effectiveness, Side effects, Dosing range, Duration, Drug interaction, Adherence and Other (potential side effects) Diagnosis and Prognosis Counseling: Accuracy of diagnosis, Prognosis over time, Impact of diagnosis on life functions, Impact of family relationship, Problematic behaviors secondary to diagnosis and Adequacy of current interventions Details: I spent 45 minutes reviewing the record, seeing the patient and documenting in the medical record. Counseling provided to the patient/caregiver as outlined below. Addressed patie nt/caregiver concerns regarding current medication regime including effective adherence. Addressed patient/caregiver concerns regarding diagnosis and prognosis including accuracy of diagnosis, prognosis over time, impact of diagnosis. Addressed patient/caregiver concerns regarding impact of recent stressors. [facility] Medical History (Updated 09/19/23 @ 00:02 by Kb Pastor) MDD (major depressive disorder) Pancolitis Cholecystitis C. difficile colitis UGIB (upper gastrointestinal bleed) Dementia Nonrheumatic aortic (valve) stenosis Generalized anxiety disorder Hypercholesterolemia Surgical History History of colonoscopy Family History Mother No problems noted. Father No problems noted. Social History Household Members: None Housing: House Do you presently have visiting nurse or other home services: No Alcohol intake: never Patient Tobacco Use Status: Never used Tobacco e-Cigarette/Vaping Use: Never Used Second Hand Smoke Exposure: No service: No Current occupational status: retired Cognitive needs: No Hearing needs: No Vision needs: Yes (glasses) Social History: Lives alone, stays with family frequently , ( 11 years ago), 2 children (both live in the area). 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
== END 2023-10-08 16:43 | disposition home or self-care (01) ==
LOC: HO.HOP 14:21
PROVIDERS: PCP Internal Medicine; Visit Provider Clinical Nurse Specialist Psychiatric/Mental Health
DX: F41.0 Panic disorder [episodic paroxysmal anxiety] (principal); F33.2 Major depressive disorder, recurrent severe without psychotic features
CPT/HCPCS: 99215

== ENCOUNTER → 2023-10-08 14:21 | Outpatient (BNVA) | payer MEDICARE, SELFPAY | PROVIDERS: PCP Internal Medicine; Visit Provider Clinical Nurse Specialist Psychiatric/Mental Health | DX: F41.0 Panic disorder [episodic paroxysmal anxiety] (principal); F33.2 Major depressive disorder, recurrent severe without psychotic features | CPT/HCPCS: 99212 ==

== ENCOUNTER 2023-10-09 10:59 | Outpatient (AMB) | payer MEDICARE, SELFPAY ==
--- NOTE | 2023-10-09 11:05 | A.OFFPC_ITS ---
Vital Signs 10/09/23 11:07 Height 5 ft 2 in Weight 138 lb 6 oz BMI 25.3 BP 120/70 Blood Pressure Location Lt brachial Position Sitting Pulse 99 Pulse Source Pulse Oximeter Pulse Oximetry (%) 97 Oxygen Delivery Method Room Air Intake Visit Reasons: F 09/05 CDiff Intake Note: Patient is here for hospital discharge follow up. Patient was discharged from [facility] on 09/06/23. Contact Clerk Required: No Rehabilitation Supervisor: Not Required per policy Accompanied by: Self / Same As Patient Allergies penicillin V Allergy (Unknown, Verified 10/09/23 11:06) Unknown Penicillins Allergy (Unknown, Verified 10/09/23 11:06) Unknown Eggs/Apples/Oats Allergy (Unknown, Uncoded 10/09/23 11:06) stomach ache Tobacco use date assessed: 10/09/23 Fall risk assessment: No Falls in past year Last assessed Fall Risk: 10/09/23 Dental Screening Dental Screen Date: 10/09/23 Did you have a dental visit in the last 12 months?: No Did you have a dental problem in the last 6 months where you did not have access to dental care?: No Was dental information given to patient?: No HPI [facility] 09/05 CDiff HPI Details 83-year-old female presents to the [facility] e requesting an hospital discharge follow-up. Her colitis symptoms are subsiding and she is compliant with medications. Patient has returned home. She has no longer allowed to drive. This decision was taken by the physician in the hospital along with her children. Patient is upset about it. She believes she can drive safely. Patient was seen by a mental health provider and her alprazolam dosage was increased. She is currently taking 0.5 mg in the morning and 0.25 mg at night. She is allowed to take an extra 0.25 mg if needed. [facility] Medical History (Updated 10/09/23 @ 16:45 by Jerman Mendoza MD) Pancolitis MDD (major depressive disorder) Cholecystitis C. difficile colitis UGIB (upper gastrointestinal bleed) Dementia Nonrheumatic aortic (valve) stenosis Generalized anxiety disorder Hypercholesterolemia Surgical History History of colonoscopy Family History Mother No problems noted. Father No problems noted. Social History Household Members: None Housing: House Do you presently have visiting nurse or other home services: No Alcohol intake: never Patient Tobacco Use Status: Never used Tobacco e-Cigarette/Vaping Use: Never Used Second Hand Smoke Exposure: No service: No Current occupational status: retired Cognitive needs: No Hearing needs: No Vision needs: Yes (glasses) Questionnaire PHQ-9 Over the last 2 weeks, how often have you been bothered by any of the following problems? 1. Little interest or pleasure in doing things: not at all 2. Feeling down, depressed, or hopeless: more than half the days 3. Trouble falling or staying asleep, or sleeping too much: not at all 4. Feeling tired or having little energy: not at all 5. Poor appetite or overeating: not at all 6. Feeling bad about yourself - or that you are a failure or have let yourself or your family down: not at all 7. Trouble concentrating on things, such as reading the newspaper or watching television: not at all 8. Moving or speaking so slowly that other people could have noticed. Or the opposite - being so fidgety or restless that you have been moving around a lot more than usual: not at all 9. Thoughts that you would be better off or of hurting yourself in some way: not at all Total score: 2 Depression Screening Interpretation: Negative Depression Screening Done: Yes Source: Developed by Drs. Wes Lenz, Jennifer Adhikari, Hung Bhatt and colleagues, with an educational vicenta from [employer]. Thrive Questionnaire Date Thrive assessed: 09/07/23 SONIDO-7 AMB Questionnaire SONIDO-7 Date SONIDO - 7 assessed: 10/09/23 Feeling nervous, anxious, or on edge: 0 = Not at all Not being able to stop or control worryin = Not at all Worrying too much about different things: 0 = Not at all Trouble relaxin = Not at all Being so restless that it is hard to sit still: 0 = Not at all Becoming easily annoyed or irritable: 0 = Not at all Feeling afraid as if something awful might happen: 0 = Not at all Total SONIDO-7 score (0-4 normal; 5-9 mild; 10-14 moderate; 15-21 severe): 0 Source: Developed by Drs. Wes Lenz, Jennifer Adhikari, Hung Bhatt and colleagues, with an educational vicenta from [employer]. Physical exam (Primary Care) Vital Signs: Last Vital Signs Pulse 99 10/09/23 11:07 BP 120/70 10/09/23 11:07 Pulse Ox 97 10/09/23 11:07 Oxygen Delivery Method Room Air 10/09/23 11:07 BMI result Body Mass Index 25.3 Tobacco/Smoking Status: Tobacco use Status Tobacco use date assessed 10/09/23 10/09/23 11:14 Patient Tobacco Use Status Never used Tobacco 10/09/23 11:14 e-Cigarette/Vaping Use Never Used 10/09/23 11:14 PHQ-9: PHQ-9 Score PHQ-9: Total score 2 10/09/23 11:14 Depression Screening Interpretation: Negative Thrive Assessment: Date of Thrive Assessment Date Thrive assessed 09/07/23 10/09/23 11:14 Const General: cooperative and healthy appearing Nutritional Appearance: well nourished Orientation/consciousness: patient oriented x3 Limitations: no limitations HENMT Head: Yes normal to inspection Eyes General: appearance normal, both eyes and all related structures Neck Neck: Yes normal visual inspection Chest Chest palpation & inspection: normal palpation of entire chest wall Resp Effort & Inspection: normal respiratory effort Cardio Other: Soft systolic murmur best heard in the aortic area. Neuro General: patient oriented x3 Assessment and Plan Assessment & Plan (1) Major depressive disorder, recurrent severe without psychotic features: Code(s): F33.2 - Major depressive disorder, recurrent severe without psychotic features Plan: Patient is on a combination of nortriptyline and alprazolam. Declining any therapy. On the combination of these 2 medications, she is at baseline state. Able to function. Patient is distress that her driving has been stopped. I encouraged the patient to bring her family next time to the office visit and we will discuss the matter again. (2) Dementia: Code(s): F03.90 - Unspecified dementia, unspecified severity, without behavioral disturbance, psychotic disturbance, mood disturbance, and anxiety Qualifiers: Dementia behavioral or psychological symptom: with mood disturbance Plan: Condition is stable. Patient is still functioning independently. (3) Pancolitis: Code(s): K51.00 - Ulcerative (chronic) pancolitis without complications Plan: Hospital record reviewed. 20 minutes spent in reviewing the hospital discharge summary. Coding Level of Care Code Est Pt Level 4 (40879) Diagnoses Major depressive disorder, recurrent severe without psychotic features F33.2 Dementia F03.90 Dementia behavioral or psychological symptom: with mood disturbance Pancolitis K51.00
[2023-10-09 11:07] VITALS: BP 120/70; PULSE 99; O2SAT 97; BMI 25.3
== END 2023-10-09 11:32 | disposition home or self-care (01) ==
PROVIDERS: PCP Internal Medicine; Visit Provider Internal Medicine
DX: K51.00 Ulcerative (chronic) pancolitis without complications (principal); F33.2 Major depressive disorder, recurrent severe without psychotic features; F03.90 Unspecified dementia, unspecified severity, without behavioral disturbance, psychotic disturbance, mood disturbance, and anxiety
CPT/HCPCS: 99214

== ENCOUNTER 2023-11-16 13:43 | Outpatient (AMB) | payer MEDICARE, SELFPAY ==
--- NOTE | 2023-11-16 13:45 | MHC.OFFVIS ---
Vital Signs 11/16/23 13:49 Height 5 ft 2 in Weight 140 lb 10.479 oz BMI 25.7 BP 142/72 H Blood Pressure Location Lt brachial Position Sitting Pulse 97 Pulse Oximetry (%) 97 Intake Visit Reasons: Gastrointestinal hemorrhage, unspecified Intake Note: New patient in office today for GI hemorrhage s/p multiple hospital admissions. CC: Patient recently seen at [facility] in , stool test was positive to C Diff Toxin A & B and Toxin B gene indicating recurrent C Diff infection. Patient with multiple admissions to [facility] beginning in new years aftab for infected gallbladder. S/p gallbladder drain placement per patient's daughter in law this was done because they could not operate on her d/t heart problems. She was placed on blood thinners for blood clots in her legs. 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 ? she is referred by Jerman Mendoza of [facility] primary care. P.m. X Hypertension High cholesterol Hypothyroid Dementia DVT-on Eliquis Pancreatitis Cholecystitis Rheumatic aortic valve stenosis Pancolitis C diff colitis History of sessile serrated adenoma * SURGICAL HISTORY Colonoscopy -2016 [place] incomplete exam unable to traverse the transverse colon. CT colonography was recommended but the patient declined * ALLERGIES Penicillin Egg/apples/oats * [employer] LABS: Laboratory Tests 09/10/23 09/11/23 05:40 08:04 WBC 8.1 RBC 3.70 L Hgb 10.3 L Hct 32.2 L MCV 87.0 MCH 27.8 Estimated GFR > 60 TSH 4.17 H Free T4 1.13 Discharge summary note from hospitalization 08/2023 Hospital Course: Admission note HPI An 83 years old lady with PMH of dementia, HTN, anxiety, severe , biliary drain for hx cholecystitis, Hx C.diff DVT on eliquis who presents to the hospital with abdominal pain and diarrhea. The patient reports being on oral Clindamycin for teeth infection earlier this week before she start feeling pain and nasuea with associated diarrhea and decrease PO intake. No chest pain, palpitations, SOB, vomiting or urinary symptoms with abdominal cramps. in ED CT Scan showed evidence of Pancolitis. She was started on Flagyl IV and Vanco PO and admitted. She had UGIB on Jul while on blood thinner requiring blood transfusion and EGD. Admitted for further evaluation and management. Hospital course The patient was admitted for treatment of sepsis secondary to acute Pancolitis as a result of recurrent C.Diff infection. blood cultures remained negative as Diarrhea improved while she was treated with IV Flagyl and PO Fidaxomicin for total of 10 days as she was evaluated by GI specialist. Tolerated diet well as diarrhea resolved. For Acute hypokalemia, replacement given with resolution. She developed breif acute Toxic metabolic encephalopathy Likely related to home medications , dementia and inpatient delerium responded well to Decreased Klonopin PRN and Decreased Mirtazapine doses. Nortriptyline level checked and still pending. Will continue same dose on discharge. She had Psychiatry evaluation who recommended DC Mirtazapine for now and to lower Klonipin as tolerated. To follow outpatient psychiatris , Nereyda Melendez ENVIRONMENTAL RESOURCE SPECIALIST. The patient coPay for DIFICID was 900$ so they opted for the second line Abx of Vancomycin for 10 more days. Continue Vancomycin for 10 more days You will need Prophylaxis for C.Diff with any future antibiotics prescription Discontinue Mirtazapine Lower Klonipin to 0.25 mg as tolerated (half tablet) To follow with outpatient psychiatris Nereyda TODAY'S VISIT She is here with her dtr in law who is supportive. She went into the [facility] ER for a GB infection and she had a drain because she refuses surgery. A week after being home she developed her first C diff infection. She was admitted again and then developed DVT and now is on Eliquis (she also had a burst popliteal cyst). She was sent to rehab and she started vomiting up blood (apparently she had PUD unknown). She had an EGD at [facility]. She got through rehab and she developed a dental infection - she was put on clindamycin (!!). She will be seeing an interventions radiologist ? lithotripsy and drain to remove GS. In December. Gave list of abx. That are less likely to cause a C diff infection since this was 1 of their great concerns. Since she is currently recovering and does not need any particular treatment I will see her in 3 months to make sure she is maintaining her recovery. [facility] Medical History Gallbladder calculus Left main coronary artery disease Stenosis of aortic valve C. difficile colitis Pancolitis MDD (major depressive disorder) Cholecystitis UGIB (upper gastrointestinal bleed) Dementia Nonrheumatic aortic (valve) stenosis Generalized anxiety disorder Hypercholesterolemia Surgical History History of esophagogastroduodenoscopy (EGD) History of appendectomy History of colonoscopy Family History Mother No problems noted. Father No problems noted. Social History Household Members: None Housing: House Do you presently have visiting nurse or other home services: No Alcohol intake: never Patient Tobacco Use Status: Never used Tobacco e-Cigarette/Vaping Use: Never Used Second Hand Smoke Exposure: No service: No Current occupational status: retired Cognitive needs: No Hearing needs: No Vision needs: Yes (glasses) Review of Systems Const Denies fatigue, Denies fever(s), Denies night sweats, Denies poor appetite and Denies weight loss ENT Reports Normal hearing present, Denies dysphagia, Denies odynophagia, Denies throat swelling and Denies tongue swelling Card Reports no additional complaints Resp Reports no additional complaints GI Details: Denies abdominal pain, Denies melena, Denies bloating, Denies hematochezia, Denies constipation, Denies GI cramping, Denies dysphagia, Denies excessive flatus, Denies early satiety, Denies heartburn, Reports diarrhea, Denies nausea, Denies odynophagia, Denies vomiting and Denies hematemesis Skin/Breast Denies pruritus, Denies lesions, Denies rash and Denies jaundice Neuro Reports Normal hearing present, Denies Abnormal speech present and Reports memory loss Psych Reports memory loss Endo Denies fatigue Aller/Immun Denies throat swelling and Denies tongue swelling Physical Exam Vital Signs: Last Vital Signs Pulse 97 11/16/23 13:49 BP 142/72 H 11/16/23 13:49 Pulse Ox 97 11/16/23 13:49 BMI result Body Mass Index 25.7 Const General: cooperative, no acute distress, well developed and well groomed Nutritional Appearance: average body habitus and well nourished Orientation/consciousness: oriented to person, oriented to place and oriented to time Limitations: No language barrier HEENT Head: Yes normocephalic and Yes atraumatic Eyes General: appearance normal, both eyes and all related structures Pupils: Equal, round and reactive pupils present Neck Neck: Yes normal visual inspection and Yes no lymphadenopathy Thyroid: Thyroid normal Resp Effort & Inspection: normal respiratory effort and able to speak in complete sentences Auscultation: clear to auscultation bilaterally Cardio Rate: regular rate Rhythm: regular rhythm Heart sounds: Normal, physiologic split S2 sound present Peripheral pulses: radial pulses present and posterior tibial pulses present GI Inspection: No distended, Yes Abdominal panniculus present and Yes obesity Palpation (GI): Soft to palpation, nontender, no guarding, not rigid and No hepatosplenomegaly present Percussion: Yes normal to percussion Auscultation: normal bowel sounds Rectal Exam - Female: deferred Abdomen image: 1. joni drain well affixed 2. Skin General skin exam: no rashes or lesions noted, decreased turgor, dry skin, no jaundice, No spider nevi and no striae Rashes: no rashes Nails: normal Neuro General: oriented to person, oriented to place and oriented to time Cranial nerves: Yes Equal, round and reactive pupils present and Yes Normal hearing present Speech: No Abnormal speech present Extrem General: Yes normal to inspection, No clubbing, No cyanosis and Yes edema (1+ pitting up to knee bilateal buot r>l) Psych Appearance: grossly normal and well kempt Mental Status: mental status grossly normal Speech and movement: Normal speech and movement present Affect: normal affect Attitude: cooperative Thought process: Normal thought process present and not confabulating Thought content: Normal thought content present Insight: Limited insight present (Psych) Judgement: Limited judgement present (Psych) Results Reviewed Results Reviewed: Laboratory Tests 09/10/23 09/11/23 05:40 08:04 WBC 8.1 RBC 3.70 L Hgb 10.3 L Hct 32.2 L MCV 87.0 MCH 27.8 Estimated GFR > 60 TSH 4.17 H Free T4 1.13 Discharge summary note from hospitalization 08/2023 Hospital Course: Admission note HPI An 83 years old lady with PMH of dementia, HTN, anxiety, severe , biliary drain for hx cholecystitis, Hx C.diff DVT on eliquis who presents to the hospital with abdominal pain and diarrhea. The patient reports being on oral Clindamycin for teeth infection earlier this week before she start feeling pain and nasuea with associated diarrhea and decrease PO intake. No chest pain, palpitations, SOB, vomiting or urinary symptoms with abdominal cramps. in ED CT Scan showed evidence of Pancolitis. She was started on Flagyl IV and Vanco PO and admitted. She had UGIB on Jul while on blood thinner requiring blood transfusion and EGD. Admitted for further evaluation and management. Hospital course The patient was admitted for treatment of sepsis secondary to acute Pancolitis as a result of recurrent C.Diff infection. blood cultures remained negative as Diarrhea improved while she was treated with IV Flagyl and PO Fidaxomicin for total of 10 days as she was evaluated by GI specialist. Tolerated diet well as diarrhea resolved. For Acute hypokalemia, replacement given with resolution. She developed breif acute Toxic metabolic encephalopathy Likely related to home medications , dementia and inpatient delerium responded well to Decreased Klonopin PRN and Decreased Mirtazapine doses. Nortriptyline level checked and still pending. Will continue same dose on discharge. She had Psychiatry evaluation who recommended DC Mirtazapine for now and to lower Klonipin as tolerated. To follow outpatient psychiatris , Nereyda Melendez ENVIRONMENTAL RESOURCE SPECIALIST. The patient coPay for DIFICID was 900$ so they opted for the second line Abx of Vancomycin for 10 more days. Continue Vancomycin for 10 more days You will need Prophylaxis for C.Diff with any future antibiotics prescription Discontinue Mirtazapine Lower Klonipin to 0.25 mg as tolerated (half tablet) To follow with outpatient psychiatris Nereyda Assessment & Plan Assessment & Plan (1) C. difficile colitis: Code(s): A04.72 - Enterocolitis due to Clostridium difficile, not specified as recurrent Category: Medical (2) Pancolitis: Code(s): K51.00 - Ulcerative (chronic) pancolitis without complications Category: Medical Plan She is here with her dtr in law who is supportive. She went into the [facility] ER for a GB infection and she had a drain because she refuses surgery. A week after being home she developed her first C diff infection. She was admitted again and then developed DVT and now is on Eliquis (she also had a burst popliteal cyst). She was sent to rehab and she started vomiting up blood (apparently she had PUD unknown). She had an EGD at [facility]. She got through rehab and she developed a dental infection - she was put on clindamycin (!!). She will be seeing an interventions radiologist ? lithotripsy and drain to remove GS. In December. Gave list of abx. That are less likely to cause a C diff infection since this was 1 of their great concerns. Since she is currently recovering and does not need any particular treatment I will see her in 3 months to make sure she is maintaining her recovery. Patient Instructions: Denise Sharp Antibiotic that are better for her: 1.? Macrolides 2.? Bactrim 3.? Tetracycline/doxycycline 4.? Flagyl 5.? Nitrofurantoin 6.? vancomycin Coding Level of Care Code New Pt Level 3 (92928) Diagnoses C. difficile colitis A04.72 Pancolitis K51.00
[2023-11-16 13:49] VITALS: BP 142/72; PULSE 97; O2SAT 97; BMI 25.7
== END 2023-11-16 14:43 | disposition home or self-care (01) ==
PROVIDERS: PCP Internal Medicine; Visit Provider Nurse Practitioner
DX: A04.72 Enterocolitis due to Clostridium difficile, not specified as recurrent (principal); K51.00 Ulcerative (chronic) pancolitis without complications
CPT/HCPCS: 99203

== ENCOUNTER → 2023-11-16 13:43 | Outpatient (BNVA) | payer MEDICARE, SELFPAY | PROVIDERS: PCP Internal Medicine; Visit Provider Nurse Practitioner | DX: K51.00 Ulcerative (chronic) pancolitis without complications (principal); A04.72 Enterocolitis due to Clostridium difficile, not specified as recurrent | CPT/HCPCS: 99202 ==

== ENCOUNTER 2023-11-23 10:47 | Outpatient (AMB) | payer MEDICARE, SELFPAY ==
[2023-11-23 10:49] VITALS: BP 132/76; PULSE 95; O2SAT 98; BMI 25.6
--- NOTE | 2023-11-23 10:49 | A.OFFPC_ITS ---
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 difficile colitis Pancolitis MDD (major depressive disorder) Cholecystitis UGIB (upper gastrointestinal bleed) Dementia Nonrheumatic aortic (valve) stenosis Generalized anxiety disorder Hypercholesterolemia Surgical History History of esophagogastroduodenoscopy (EGD) History of appendectomy History of colonoscopy Family History Mother No problems noted. Father No problems noted. Social History Household Members: None Housing: House Do you presently have visiting nurse or other home services: No Alcohol intake: never Patient Tobacco Use Status: Never used Tobacco e-Cigarette/Vaping Use: Never Used Second Hand Smoke Exposure: No service: No Current occupational status: retired Cognitive needs: No Hearing needs: No Vision needs: Yes (glasses) Questionnaire Thrive Questionnaire Date Thrive assessed: 09/07/23 SONIDO-7 AMB Questionnaire SONIDO-7 Date SONIDO - 7 assessed: 10/09/23 Source: Developed by Drs. Wes Lenz, Jennifer Adhikari, Hung Bhatt and colleagues, with an educational vicenta from [employer]. Physical exam (Primary Care) Tobacco/Smoking Status: Tobacco use Status Tobacco use date assessed 10/09/23 11/13/23 08:20 Patient Tobacco Use Status Never used Tobacco 11/13/23 08:20 e-Cigarette/Vaping Use Never Used 11/13/23 08:20 Thrive Assessment: Date of Thrive Assessment Date Thrive assessed 09/07/23 11/13/23 08:20 Coding
--- NOTE | 2023-11-23 10:50 | A.OFFVIS_ITS ---
Intake Vital Signs 11/23/23 10:49 Height 5 ft 2 in Weight 140 lb BMI 25.6 BP 132/76 Blood Pressure Location Lt brachial Position Sitting Pulse 95 Pulse Source Pulse Oximeter Pulse Oximetry (%) 98 Oxygen Delivery Method Room Air Intake Visit Reasons: AWE Rehab Office Coordinator Required: No Vertical Lathe Operator: Vertical Lathe Operator Present Accompanied by: Daughter Allergies penicillin V Allergy (Unknown, Verified 11/23/23 10:50) Unknown Penicillins Allergy (Unknown, Verified 11/23/23 10:50) Unknown Eggs/Apples/Oats Allergy (Unknown, Uncoded 11/23/23 10:50) stomach ache HPI HPI Comments History of Present Illness Details 83 y/o female patient presents for Medic are Wellness Visit. She is accompanied by Daughter in-law. She has no concerns today. Pt lives by herself, Family around the area. Son and daughter in-law assist with Transportation, meals preparation, shopping and financials. Care Management team: Greer Calabrese GI @[facility] [place] [facility]. Jayashree Hamilton IR @ [facility] [place] [facility]. Hanane Liz Cardiology @ [facility] Medical History Gallbladder calculus Left main coronary artery disease Stenosis of aortic valve C. difficile colitis Pancolitis MDD (major depressive disorder) Cholecystitis UGIB (upper gastrointestinal bleed) Dementia Nonrheumatic aortic (valve) stenosis Generalized anxiety disorder Hypercholesterolemia Surgical History History of esophagogastroduodenoscopy (EGD) History of appendectomy History of colonoscopy Family History Mother No problems noted. Father No problems noted. Social History Household Members: None Housing: House Do you presently have visiting nurse or other home services: No Alcohol intake: never Patient Tobacco Use Status: Never used Tobacco e-Cigarette/Vaping Use: Never Used Second Hand Smoke Exposure: No service: No Current occupational status: retired Cognitive needs: No Hearing needs: No Vision needs: Yes (glasses) Questionnaire Medicare Wellness Checkup What is your age?: 81 or older What gender do you identify with?: female During the past 4 weeks, how much have you been bothered by emotional problems such as feeling anxious, depressed, irritable, sad or downhearted, and blue?: moderately During the past 4 weeks, has your physical & emotional health limited your social activities with family, friends, neighbors, or groups?: slightly During the past 4 weeks, how much bodily pain have you generally had?: no pain During the past 4 weeks, was someone available to help you if you needed & wanted help?: yes, as much as I wanted During the past 4 weeks, what was the hardest physical activity you could do for at least 2 minutes?: light Can you get to places out of walking distance without help? (For eg., can you travel alone on buses, taxis or drive your car?): Yes Can you go shopping for groceries or clothes without someone's help?: No Can you prepare your own meals?: Yes Can you do your housework without help?: Yes Because of any health problems, do you need the help of another person with your personal care needs such as eating, bathing, dressing or getting around the house?: No Can you handle your own money without help?: No During the past 4 weeks, how would you rate your health in general?: good During the past 4 weeks how have things been going for you?: good & bad parts about equal Are you having difficulties driving your car?: not applicable, I don't use a car Do you always fasten your seat belt when you are in a car?: yes, sometimes During past 4 weeks, have you been bothered by the following: never: Falling or dizzy when standing up, Problems using the telephone? and Tiredness or fatigue?, sometimes: Trouble eating well? and always: Teeth or denture problems? Have you fallen 2 or more times in the past year?: No Are you afraid of falling?: No Are you a smoker?: no During the past 4 weeks, how many drinks of wine, beer, or other alcoholic beverages did you have?: no alcohol at all Do you exercise for about 20 minutes 3 or more times a week?: no, I usually do not exercise this much Have you been given information to help with the following?: yes: Hazards in your house that might hurt you? and yes: Keeping track of your medications? How often do you have trouble taking medicines the way you have been told to ta ke them?: I always take medicine as prescribed How confident are you that you can control & manage most of your health problems?: not very confident What is your race?: White Mini Mental State Exam (MMSE) Orientation What is the (year) (season) (date) (day) (month)?: year, season, date, day and month Where are we (state) (county) (town or city) (hospital) (floor)?: state, county and town or city Registration Name of 3 unrelated objects clearly and slowly, then ask patient to repeat all 3 of them. (1st repeat determines score. Make sure they can repeat all three): object 1, object 2 and object 3 Recall Ask patient to repeat the 3 items from question #3.: object 1, object 2 and object 3 Language Show patient a wristwatch & ask what it is. Repeat for pencil.: watch and pencil Ask the patient to repeat the phrase 'No ifs, ands, or buts' after you.: correct Score Score: 17 Activity of Daily Living Bathing - sponge bath, tub bath or shower: receives no assistance (gets in/out by self, if usual bathing means Dressing - getting clothes from closets & drawers, including inner/outer garments & fasteners.: gets clothes & gets completely dressed without help Toileting - going to the 'toilet room' for urine/bowel elimination & cleaning self/arranging clothes: goes to toilet room, cleans self, arranges clothes with out help Transfer: moves in & out of bed and chair without help (may use support object) Continence: has occasional 'accidents' (when she can't get to the bathroom faster enough) Feeding: feeds self without help Total Score: 0 Information obtained from: patient Using telephone: independent Traveling: dependent Shopping: needs assistance Preparing meals: independent Housework: needs assistance Taking medicine: needs assistance Managing money: dependent PHQ-9 Over the last 2 weeks, how often have you been bothered by any of the following problems? 1. Little interest or pleasure in doing things: more than half the days 2. Feeling down, depressed, or hopeless: more than half the days 3. Trouble falling or staying asleep, or sleeping too much: nearly every day 4. Feeling tired or having little energy: nearly every day 5. Poor appetite or overeating: more than half the days 6. Feeling bad about yourself - or that you are a failure or have let yourself or your family down: not at all 7. Trouble concentrating on things, such as reading the newspaper or watching television: not at all 8. Moving or speaking so slowly that other people could have noticed. Or the opposite - being so fidgety or restless that you have been moving around a lot more than usual: not at all 9. Thoughts that you would be better off or of hurting yourself in some way: several days Total score: 13 Depression Screening Interpretation: Positive Depression Screening Done: Yes Source: Developed by Drs. Wes Lenz, Jennifer Adhikari, Hung Bhatt and colleagues, with an educational vicenta from [employer]. Review of Systems Const All systems reviewed & are unremarkable except as noted in HPI and below ENT Reports Normal hearing present Neuro Reports Normal hearing present Physical Exam Vital Signs: Last Vital Signs Pulse 95 11/23/23 10:49 BP 132/76 11/23/23 10:49 Pulse Ox 98 11/23/23 10:49 Oxygen Delivery Method Room Air 11/23/23 10:49 BMI result Body Mass Index 25.6 Const General: comfortable and no acute distress Nutritional Appearance: well nourished Orientation/consciousness: patient oriented x3 Limitations: no limitations HEENT Ears: hearing grossly normal bilaterally and external ears normal Neuro Other: Balance normal Patient able to get up from chair with no assistance. Rhomberg: Negative Tandem; Negative. General: patient oriented x3, gait normal, moves all extremities and no focal motor deficits Cranial nerves: Yes Normal hearing present Motor exam (neuro): 5/5 motor strength present throughout and Pronator motor function not present Coordination: tandem gait normal and Romberg test negative Romberg Test: Negative Extrem General: Yes full ROM Psych Speech and movement: Normal speech and movement present Affect: normal affect Attitude: cooperative Assessment & Plan Assessment & Plan (1) Encounter for annual wellness visit (AWV) in Medicare patient: Code(s): Z00.00 - Encounter for general adult medical examination without abnormal findings Plan: Examination normal, all concerns addressed F/U with PCP PRN or as scheduled. (2) Pancolitis: Code(s): K51.00 - Ulcerative (chronic) pancolitis without complications Plan: Stable, well managed by GI team (3) Major depressive disorder, recurrent severe without psychotic features: Code(s): F33.2 - Major depressive disorder, recurrent severe without psychotic features Plan: Stable, no concerns at this time. (4) Dementia: Code(s): F03.90 - Unspecified dementia, unspecified severity, without behavioral disturbance, psychotic disturbance, mood disturbance, and anxiety Qualifiers: Dementia behavioral or psychological symptom: with mood disturbance Dementia severity: mild Dementia type: unspecified type Qualified Code(s): F03.A3 - Unspecified dementia, mild, with mood disturbance Plan: Stable no concerns at this time. Quality Reporting (2019) Depression/Bipolar (159/160/161/177) PHQ-9: Total score: 13 Coding Level of Care Code Medicare First (G0438) Diagnoses Encounter for annual wellness visit (AWV) in Medicare patient Z00.00 Pancolitis K51.00 Major depressive disorder, recurrent severe without psychotic features F33.2 Mild dementia with mood disturbance, unspecified dementia type F03.A3 Dementia behavioral or psychological symptom: with mood disturbance Dementia severity: mild Dementia type: unspecified type
== END 2023-11-23 11:38 | disposition home or self-care (01) ==
PROVIDERS: PCP Internal Medicine; Visit Provider Nurse Practitioner Family
DX: K51.00 Ulcerative (chronic) pancolitis without complications (principal); F33.2 Major depressive disorder, recurrent severe without psychotic features; F03.A3 Unspecified dementia, mild, with mood disturbance
CPT/HCPCS: 99214

== ENCOUNTER 2024-01-01 10:51 | Outpatient (AMB) | payer MEDICARE, BC, SELFPAY ==
--- NOTE | 2024-01-01 11:00 | A.OFFVIS_ITS ---
Vital Signs 01/01/24 11:01 Height 5 ft 2 in Weight 142 lb BMI 26.0 BP 138/80 Blood Pressure Location Rt brachial Position Sitting Respiration 16 Pulse 105 H Pulse Source Pulse Oximeter Pulse Oximetry (%) 97 Oxygen Delivery Method Room Air Intake Visit Reasons: INP: Uns Dementia - Confirmed Intake Note: Pt presents for a new pt evaluation for dementia. Bearing Grinder Required: No Allergies penicillin V Allergy (Unknown, Verified 01/01/24 11:01) Unknown Penicillins Allergy (Unknown, Verified 01/01/24 11:01) Unknown Eggs/Apples/Oats Allergy (Unknown, Uncoded 01/01/24 11:01) stomach ache Medication List - Last Reconciled 01/01/24 by Tamy Castro MD apixaban (Eliquis) 2.5 mg PO BID atorvastatin 80 mg PO BEDTIME cholecalciferol (vitamin D3) 125 mcg PO DAILY clonazepam 0.25 mg orally take 0.25 mg in am and 0.5mg at bedtime and may take an additional 0. 25 mg midday as needed for severe anxiety/panic attack PRN when with family/caregiver; levothyroxine 75 mcg PO DAILY metoprolol succinate ER 50 mg PO DAILY multivitamin 1 tab PO DAILY nortriptyline 50 mg PO BEDTIME pantoprazole 40 mg PO DAILY 90 days [probiotic PO BID] HPI Comments Details: 83y/o Right handed female comes for evaluation of cognitive impairment. Her family noticed short term memory issues about 9 mths ago - when she had multiple hospitalizations for pancreatitis, gall bladder issues,DVT,C diff infections, Bleeding ulcer. she frequently repeats , may confuse with events, she forgot she had a heart medications.Her son takes care of her medications,her family takes care of finances etc.she was placing duplicate orders, she also misplaces things at home.she stopped driving. she is self sufficient at Home. she has hearing issues - does not use hearing aids she has h/o depression and anxiety - controlled with medications- stable since September 2023 her sleep is good- takes clonazepam she has snoring . [facility] Medical History (Updated 01/01/24 @ 13:33 by Tamy Castro MD) Cognitive change Gallbladder calculus Left main coronary artery disease Stenosis of aortic valve C. difficile colitis Pancolitis MDD (major depressive disorder) Cholecystitis UGIB (upper gastrointestinal bleed) Dementia Nonrheumatic aortic (valve) stenosis Generalized anxiety disorder Hypercholesterolemia Surgical History History of esophagogastroduodenoscopy (EGD) History of appendectomy History of colonoscopy Family History Mother No problems noted. Father No problems noted. Social History Household Members: None Housing: House Do you presently have visiting nurse or other home services: No Alcohol intake: never Patient Tobacco Use Status: Never used Tobacco e-Cigarette/Vaping Use: Never Used Second Hand Smoke Exposure: No service: No Current occupational status: retired Cognitive needs: No Hearing needs: No Vision needs: Yes (glasses) Physical Exam Vital Signs: Last Vital Signs Pulse 105 H 01/01/24 11:01 Resp 16 01/01/24 11:01 BP 138/80 01/01/24 11:01 Pulse Ox 97 01/01/24 11:01 Oxygen Delivery Method Room Air 01/01/24 11:01 BMI result Body Mass Index 26.0 Const General: cooperative, healthy appearing, comfortable and no acute distress Nutritional Appearance: average body habitus Orientation/consciousness: patient oriented x3 Eyes Pupils: Equal, round and reactive pupils present Neuro General: patient oriented x3, tone normal, moves all extremities and no focal motor deficits Cranial nerves: Yes Facial sensation intact/muscles of mastication intact, Yes Equal, round and reactive pupils present, Yes Bilaterally intact EOM present, Yes Nystagmus not present, Yes Normal facial strength present, Yes Midline tongue present and Yes Symmetric palate elevation present Cognition (Neuro): normal cognition Gait exam (Neuro): Antalgic gait present Motor exam (neuro): 5/5 motor strength present throughout and Normal motor muscle tone present throughout Deep tendon reflexes (DTR's): Right triceps reflex intensity grade: 2+, Left triceps reflex intensity grade: 2+, Rt Biceps (C5, C6): 2+, Left biceps reflex intensity grade: 2+, Right brachioradialis reflex intensity grade: 2+, Left brachioradialis reflex intensity grade: 2+, Right patellar reflex intensity grade: 2+ and Left patellar reflex intensity grade: 2+ Coordination: [id number] test normal Orientation What is the (year) (season) (date) (day) (month)?: year, season, date, day and month Where are we (state) (county) (town or city) (hospital) (floor)?: state, county, town or city, hospital/clinic and floor Registration Name of 3 unrelated objects clearly and slowly, then ask patient to repeat all 3 of them. (1st repeat determines score. Make sure they can repeat all three): object 1, object 2 and object 3 Attention & Calculation (CHOOSE ONE) Spell WORLD backwards (DLROW): 5 letters Recall Ask patient to repeat the 3 items from question #3.: object 1 Language Show patient a wristwatch & ask what it is. Repeat for pencil.: watch and pencil Ask the patient to repeat the phrase 'No ifs, ands, or buts' after you.: correct Ask the patient to 'take a piece of paper with their right hand' 'fold paper in half' 'place paper on floor': take paper in right hand, fold paper in half and place paper on floor Print the sentence 'CLOSE YOUR EYES' on a piece. If patient actually closes eyes then score.: followed written direction Give patient a blank piece of paper & ask to write a sentence. Score if it contains a noun & verb.: sentence contains subject and verb Ask patient to copy figure of intersecting pentagons exactly. Score if all 10 angles & 2 intersects are included.: all 10 angles present & 2 are intersected Score Score: 28 Assessment & Plan Assessment & Plan (1) Cognitive change: Comment: age related vs mild cognitive impairment Code(s): R41.89 - Other symptoms and signs involving cognitive functions and awareness Category: Medical Plan MRI brain to further evaluate suggested to increase her social interaction activity Hearing evaluation Hearing loss and social isolation are risk factors for dementia Orders: Orders MR head/brain wo con Today R41.89 - Other symptoms and signs involving cognitive functions and awareness, R46.89 - Other symptoms and signs involving appearance and behavior Coding Level of Care Code New Pt Level 4 (98749) Diagnoses Cognitive change R41.89
[2024-01-01 11:01] VITALS: BP 138/80; PULSE 105; RESP 16; O2SAT 97; BMI 26.0
== END 2024-01-01 12:04 | disposition home or self-care (01) ==
PROVIDERS: PCP Internal Medicine; Visit Provider Psychiatry & Neurology Neurology
DX: R41.89 Other symptoms and signs involving cognitive functions and awareness (principal)
CPT/HCPCS: 99204

== ENCOUNTER → 2024-01-01 10:51 | Outpatient (BNVA) | payer BC, MEDICARE, SELFPAY | PROVIDERS: PCP Internal Medicine; Visit Provider Psychiatry & Neurology Neurology ==

== ENCOUNTER 2024-03-04 15:17 | Outpatient (REF) | payer MEDICARE, BC, SELFPAY ==
--- NOTE | ~2024-03-04 | MR_ITS ---
EXAMINATION: MR BRAIN WITHOUT CONTRAST CLINICAL INFORMATION: Dementia. COMPARISON: CT head from 06/06/2016. TECHNIQUE: MRI of the brain was obtained using routine sequences without contrast. FINDINGS: No focal restricted diffusion is demonstrated to suggest acute or subacute cerebral ischemia. No evidence of acute or chronic hemorrhagic products on heme-sensitive imaging. 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 Scattered and partially confluent periventricular, deep white matter, and brainstem T2 FLAIR hyperintensities consistent with mild to moderate underlying microangiopathy. Proportional prominence of the ventricles and sulcal spaces without evidence of obstructive hydrocephalus. No abnormal mass effect. No midline shift. Normal appearance of the pituitary gland. Normal positioning of the cerebellar tonsils. Normal arterial and venous vascular flow voids are present. Normal, homogeneous marrow signal. Mild mucosal thickening of the paranasal sinuses. No signal abnormalities within the mastoids. MR/MR head/brain wo con IMPRESSION: 1. No acute intracranial abnormalities. 2. Mild to moderate underlying microangiopathy and generalized cerebral volume loss. 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 Electronically signed by: Alexis Downey DO 03/28/2024 11:22 PM EDT
== END 2024-03-04 15:18 | disposition home or self-care (01) ==
LOC: HO.MRI 15:17
PROVIDERS: PCP Internal Medicine; Visit Provider Psychiatry & Neurology Neurology
DX: R46.89 Other symptoms and signs involving appearance and behavior (principal); R41.89 Other symptoms and signs involving cognitive functions and awareness
CPT/HCPCS: 70551

== ENCOUNTER 2024-03-25 13:42 | Outpatient (AMB) | payer MEDICARE, BC, SELFPAY ==
--- NOTE | 2024-03-25 13:48 | A.OFFPC_ITS ---
Vital Signs 03/25/24 13:59 Height 5 ft 2 in BMI Reason not done Patient refused/unable BP 130/70 Blood Pressure Location Rt brachial Position Sitting Pulse 86 Pulse Source Pulse Oximeter Pulse Oximetry (%) 94 Oxygen Delivery Method Room Air Intake Visit Reasons: ReallyBadCough Intake Note: Patient is here to follow up on Really bad cough on going for a week. Qa Engineer Required: No Waiter/Waitress Head: Present Accompanied by: Son Allergies penicillin V Allergy (Unknown, Verified 03/25/24 14:18) Unknown Penicillins Allergy (Unknown, Verified 03/25/24 14:18) Unknown Eggs/Apples/Oats Allergy (Unknown, Uncoded 03/25/24 14:18) stomach ache Medication List - Last Reconciled 03/25/24 by Jerman Mendoza MD apixaban (Eliquis) 2.5 mg PO BID atorvastatin 80 mg PO BEDTIME cholecalciferol (vitamin D3) 125 mcg PO DAILY clonazepam 0.25 mg orally take 0.25 mg in am and 0.5mg at bedtime and may take an additional 0. 25 mg midday as needed for severe anxiety/panic attack PRN when with family/caregiver; levothyroxine 75 mcg PO DAILY metoprolol succinate ER 50 mg PO DAILY multivitamin 1 tab PO DAILY nortriptyline 50 mg PO DAILY pantoprazole 40 mg PO DAILY 90 days [probiotic PO BID] Tobacco use date assessed: 03/25/24 Fall risk assessment: No Falls in past year Last assessed Fall Risk: 03/25/24 Dental Screening Dental Screen Date: 10/09/23 HPI ReallyLucilleCough HPI Details 83-year-old female [facility] to [facility]. Patient is reporting symptoms of productive cough for the past few days. Associated with wheezing. No fevers or chills. No nausea or vomiting. [facility] Medical History Cognitive change Gallbladder calculus Left main coronary artery disease Stenosis of aortic valve C. difficile colitis Pancolitis MDD (major depressive disorder) Cholecystitis UGIB (upper gastrointestinal bleed) Dementia Nonrheumatic aortic (valve) stenosis Generalized anxiety disorder Hypercholesterolemia Surgical History History of esophagogastroduodenoscopy (EGD) History of appendectomy History of colonoscopy Family History Mother No problems noted. Father No problems noted. Social History Household Members: None Housing: House Do you presently have visiting nurse or other home services: No Alcohol intake: never Patient Tobacco Use Status: Never used Tobacco e-Cigarette/Vaping Use: Never Used Second Hand Smoke Exposure: No service: No Current occupational status: retired Cognitive needs: No Hearing needs: No Vision needs: Yes (glasses) Questionnaire Thrive Questionnaire Date Thrive assessed: 09/07/23 SONIDO-7 AMB Questionnaire SONIDO-7 Date SONIDO - 7 assessed: 10/09/23 Source: Developed by Drs. Wes Lenz, Jennifer Adhikari, Hung Bhatt and colleagues, with an educational vicenta from [employer]. Physical exam (Primary Care) Vital Signs: Last Vital Signs Pulse 86 03/25/24 13:59 BP 130/70 03/25/24 13:59 Pulse Ox 94 03/25/24 13:59 Oxygen Delivery Method Room Air 03/25/24 13:59 Tobacco/Smoking Status: Tobacco use Status Tobacco use date assessed 03/25/24 03/25/24 14:11 Patient Tobacco Use Status Never used Tobacco 03/25/24 13:48 e-Cigarette/Vaping Use Never Used 03/25/24 13:48 Thrive Assessment: Date of Thrive Assessment Date Thrive assessed 09/07/23 03/25/24 13:48 Const General: cooperative and healthy appearing Nutritional Appearance: well nourished Orientation/consciousness: patient oriented x3 Limitations: no limitations HENMT Head: Yes normal to inspection Eyes General: appearance normal, both eyes and all related structures Neck Neck: Yes normal visual inspection Chest Chest palpation & inspection: normal palpation of entire chest wall Resp Effort & Inspection: normal respiratory effort Neuro General: patient oriented x3 Coding Level of Care Code Est Pt Level 3 (21540) Diagnoses Acute bronchitis J20.9 Assessment & Plan Assessment & Plan (1) Acute bronchitis: Code(s): J20.9 - Acute bronchitis, unspecified Plan: Antibiotics ordered. Increase fluid intake. Tylenol for aches and pains. If symptoms worsen, follow-up here for a recheck. Plan Antibiotics ordered. Increase fluid intake. Tylenol for aches and pains. If symptoms worsen, follow-up here for a recheck.
[2024-03-25 13:59] VITALS: BP 130/70; PULSE 86; O2SAT 94
== END 2024-03-25 14:22 | disposition home or self-care (01) ==
PROVIDERS: PCP Internal Medicine; Visit Provider Internal Medicine
DX: J20.9 Acute bronchitis, unspecified (principal)

== ENCOUNTER → 2024-03-25 13:42 | Outpatient (BNVA) | payer MEDICARE, BC, SELFPAY | PROVIDERS: PCP Internal Medicine; Visit Provider Internal Medicine | DX: J20.9 Acute bronchitis, unspecified (principal) | CPT/HCPCS: 99212 ==

== ENCOUNTER → 2024-04-08 08:24 | Outpatient (BNVA) | payer MEDICARE, BC, SELFPAY | PROVIDERS: PCP Internal Medicine; Visit Provider Psychiatry & Neurology Neurology ==

== ENCOUNTER 2024-04-08 13:42 | Outpatient (AMB) | payer MEDICARE, BC, SELFPAY ==
--- NOTE | 2024-04-08 13:43 | A.OFFVIS_ITS ---
Vital Signs 04/08/24 13:44 Height 5 ft 2 in Weight 140 lb BMI 25.6 Intake Visit Reasons: MRI results Intake Note: Telehealth visit to discuss MRI results and plan. Pt accompanied by son Markos and daughter in law. [place] Law Clerk Required: No Accompanied by: Family/Other Allergies penicillin V Allergy (Unknown, Verified 04/08/24 13:44) Unknown Penicillins Allergy (Unknown, Verified 04/08/24 13:44) Unknown Eggs/Apples/Oats Allergy (Unknown, Uncoded 03/25/24 14:18) stomach ache HPI Comments Details: 83y/o Right handed female calls for evaluation of cognitive impairment. Her son helps with her visit today. she is waiting for new hearing aids.Her son lives close to her and takes her for outings Her short term recall is worse. History form initial visit- Her family noticed short term memory issues about 9 mths ago - when she had multiple hospitalizations for pancreatitis, gall bladder issues,DVT,C diff infections, Bleeding ulcer. she frequently repeats , may confuse with events, she forgot she had a heart medications.Her son takes care of her medications,her family takes care of finances etc.she was placing duplicate orders, she also misplaces things at home.she stopped driving. she is self sufficient at Home. she has hearing issues - does not use hearing aids she has h/o depression and anxiety - controlled with medications- stable since September 2023 her sleep is good- takes clonazepam she has snoring . COUNTS INCLUDE 234 BEDS AT THE [facility] Medical History Cognitive change Gallbladder calculus Left main coronary artery disease Stenosis of aortic valve C. difficile colitis Pancolitis MDD (major depressive disorder) Cholecystitis UGIB (upper gastrointestinal bleed) Dementia Nonrheumatic aortic (valve) stenosis Generalized anxiety disorder Hypercholesterolemia Surgical History History of esophagogastroduodenoscopy (EGD) History of appendectomy History of colonoscopy Family History Mother No problems noted. Father No problems noted. Social History Household Members: None Housing: House Do you presently have visiting nurse or other home services: No Alcohol intake: never Patient Tobacco Use Status: Never used Tobacco e-Cigarette/Vaping Use: Never Used Second Hand Smoke Exposure: No service: No Current occupational status: retired Cognitive needs: No Hearing needs: No Vision needs: Yes (glasses) Physical Exam Vital Signs: BMI result Body Mass Index 25.6 Const Other: speech - ok mood- ok answered simple quetsions General: cooperative Telehealth Telehealth Telehealth Platform: Telephone Location of provider rendering services: practice address Location of patient: address on file Patient Identification confirmed using: Name, : Yes Telehealth method: voice only Patient verbally consented to treatment: Yes Patient verbally consented to billing insurance company: Yes Patient informed of any privacy concerns related to visit: Yes Minutes spent on Phone/Video with Pt.: 16 Assessment & Plan Assessment & Plan (1) Cognitive change: Comment: mild cognitive impairment Code(s): R41.89 - Other symptoms and signs involving cognitive functions and awareness Category: Medical Plan MRI brain to further evaluate suggested to increase her social interaction activity Hearing evaluation Hearing loss and social isolation are risk factors for dementia Coding Level of Care Code Tele Est Pt Level 4 (77721) Diagnoses Cognitive change R41.89 Time Spent (min) 16
[2024-04-08 13:44] VITALS: BMI 25.6
== END 2024-04-08 15:01 | disposition home or self-care (01) ==
PROVIDERS: PCP Internal Medicine; Visit Provider Psychiatry & Neurology Neurology
DX: R41.89 Other symptoms and signs involving cognitive functions and awareness (principal)
CPT/HCPCS: 99442

== ENCOUNTER 2024-04-22 13:35 | Outpatient (AMB) | payer MEDICARE, BC, SELFPAY ==
--- NOTE | 2024-04-22 13:49 | MHC.PC.OV ---
Vital Signs 04/22/24 13:50 Height 5 ft 2 in Weight 154 lb BMI 28.2 BP 130/80 Blood Pressure Location Lt brachial Position Sitting Pulse 98 Pulse Source Pulse Oximeter Pulse Oximetry (%) 95 Oxygen Delivery Method Room Air Intake Visit Reasons: htn Intake Note: Patient is here to follow up on HTN. Pt decline flu shot today. Sharepoint Consultant Required: No Assistant Scientist: Present Accompanied by: Son Allergies penicillin V Allergy (Unknown, Verified 04/24/24 12:51) Unknown Penicillins Allergy (Unknown, Verified 04/24/24 12:51) Unknown Eggs/Apples/Oats Allergy (Unknown, Uncoded 04/24/24 12:51) stomach ache Tobacco use date assessed: 04/22/24 Fall risk assessment: No Falls in past year Last assessed Fall Risk: 04/22/24 Dental Screening Dental Screen Date: 10/09/23 HPI htn HPI Details 83-year-old female presents to the office to discuss her chronic medical conditions. Patient is at baseline state of health. Able to function and do all activities of daily living. Compliant with medications. Patient continues to live alone. [facility] Medical History Cognitive change Gallbladder calculus Left main coronary artery disease Stenosis of aortic valve C. difficile colitis Pancolitis MDD (major depressive disorder) Cholecystitis UGIB (upper gastrointestinal bleed) Dementia Nonrheumatic aortic (valve) stenosis Generalized anxiety disorder Hypercholesterolemia Surgical History History of esophagogastroduodenoscopy (EGD) History of appendectomy History of colonoscopy Family History Mother No problems noted. Father No problems noted. Social History Household Members: None Housing: House Do you presently have visiting nurse or other home services: No Alcohol intake: never Patient Tobacco Use Status: Never used Tobacco e-Cigarette/Vaping Use: Never Used Second Hand Smoke Exposure: No service: No Current occupational status: retired Cognitive needs: No Hearing needs: No Vision needs: Yes (glasses) Questionnaire Thrive Questionnaire Date Thrive assessed: 09/07/23 SONIDO-7 AMB Questionnaire SONIDO-7 Date SONIDO - 7 assessed: 10/09/23 Source: Developed by Drs. Wes Lenz, Jennifer Adhikari, Hung Bhatt and colleagues, with an educational vicenta from [employer]. Physical exam (Primary Care) Vital Signs: Last Vital Signs Pulse 98 04/22/24 13:50 BP 130/80 04/22/24 13:50 Pulse Ox 95 04/22/24 13:50 Oxygen Delivery Method Room Air 04/22/24 13:50 BMI result Body Mass Index 28.2 Tobacco/Smoking Status: Tobacco use Status Tobacco use date assessed 04/22/24 04/22/24 13:55 Patient Tobacco Use Status Never used Tobacco 04/22/24 13:55 e-Cigarette/Vaping Use Never Used 04/22/24 13:55 Thrive Assessment: Date of Thrive Assessment Date Thrive assessed 09/07/23 04/22/24 13:55 Const General: cooperative and healthy appearing Nutritional Appearance: well nourished Orientation/consciousness: patient oriented x3 Limitations: no limitations HENMT Head: Yes normal to inspection Eyes General: appearance normal, both eyes and all related structures Neck Neck: Yes normal visual inspection Chest Chest palpation & inspection: normal palpation of entire chest wall Resp Effort & Inspection: normal respiratory effort Neuro General: patient oriented x3 Coding Level of Care Code Est Pt Level 3 (92861) Complex EM visit Add On G2211 Diagnoses Hypertension I10 Assessment & Plan Assessment & Plan (1) Hypertension: Code(s): I10 - Essential (primary) hypertension Category: Medical Plan: Continue blood pressure medications at same dosage.
[2024-04-22 13:50] VITALS: BP 130/80; PULSE 98; O2SAT 95; BMI 28.2
== END 2024-04-22 14:18 | disposition home or self-care (01) ==
LOC: HO.HMCH 13:36
PROVIDERS: PCP Internal Medicine; Visit Provider Internal Medicine
DX: I10 Essential (primary) hypertension (principal)

== ENCOUNTER → 2024-04-22 13:35 | Outpatient (BNVA) | payer MEDICARE, BC, SELFPAY | PROVIDERS: PCP Internal Medicine; Visit Provider Internal Medicine | DX: I10 Essential (primary) hypertension (principal) | CPT/HCPCS: 99212 ==

== ENCOUNTER 2024-06-04 11:25 | Outpatient (REF) | payer BC, MEDICARE, SELFPAY ==
--- OUTSIDE RECORDS SUMMARY | 2024-06-04 11:28 | XMS_ITS | Patient Health Record ---
[facility] Address [address] [place] [address] Care Team Providers Care Sack Maker Name Role Phone Jerman Mendoza Primary Care Provider [phone] Usha Huynh [phone] Allergies Allergen (clinical drug ingredient) Drug/Non Drug Allergy documented on EMR Reaction Allergy Type Onset Date Status sulfamethoxazole / trimethoprim Bactrim Unknown Drug Allergy Active Penicillin Unknown Drug Allergy Active Reason For Referral No Information Social History Tobacco Use: Social History Observation Description Date Details (start date - stop date) Never Smoker NA - NA Tobacco use other than smoking: Question Answer Notes Are you an other tobacco user? No Tobacco Control (Standard) Question Answer Notes Tobacco use: Nonsmoker Additional Findings: Tobacco non-user Current no nsmoker AUDIT-C (Standard) Question Answer Notes Did you have a drink containing alcohol in the p ast year? No Points 0 Interpretation Negative Encounters Encounter Location Date Provider Diagnosis [facility] [address] [place] [address] 05/13/2024 Usha Huynh Plan Of Treatment Next Appt Details Provider Name:Usha deleon, 06/19/2024 01:00:00 PM, [address] [place], [address], Insurance Providers Payer Name Payer Address Payer Phone Subscriber Number Group Number Insured Name Patient Relationship to Insured Coverage Start Date Coverage End Date Medicare National [employer] [address] [place] [address] [id number] Aron Denise Self - patient is the insured [employer] [facility] [address] [place], [place] [address] [id number] JameslennieAdrián foxine Self - patient is the insured Medical (General) History Medical History History ICD Code Anxiety CAD (Cholesterol) Dementia Depression Gall bladder problems Heart disease High Blood Pressure thyroid Stenosis Heart valve conditions/replacement Surgical History Surgery Date(Month/Year) Gall bladder removal appendectomy ulcer
--- OUTSIDE RECORDS SUMMARY | 2024-06-04 11:28 | XMS_ITS ---
Author Organization [facility] Address [address] [place] [address] Care Team Providers Care Anesthesiologist Attending Name Role Phone Jerman Mendoza Primary Care Provider Usha Huynh [phone] REASON FOR VISIT COMPOSITION [employer] Entered Encounters Encounter Location Date Provider Diagnosis [facility] [address] [place] [address] 05/13/2024 Usha Huynh Plan Of Treatment Next Appt Details Provider Name:Usha deleon, 06/19/2024 01:00:00 PM, [address] [place], [address], Progress Notes * Denise SHARP MDOB:1939 (83 yo F)Acc No.[id number]:05/13/2024 Patient:?Denise SHARP :1940???Age:83 Y???Sex:Female Address:[place] [address] * true * Date:? Generated for Baldoi moon/Jaydon/eTransmitting on:?06/04/2024 11:28 AM EST
--- OUTSIDE RECORDS SUMMARY | 2024-06-04 11:28 | XMS_ITS | Clinical Summary ---
Author Organization Unknown Care Team Providers Care Director Of Content And Programming Name Role Phone ANABELLA STOVER, ROWAN Unavailable Unavailab le JOSE PT, TEA Unavailable Unavailable SHAKILA RN, ROSALBA Unavailable Unavailable GUPTA-BIRKNER VP RESEARCH, JHONNY Unavailable Jina vailable CLOONAN VP RESEARCH, EDWARD Unavailable Unavailable VIKI DURON, ARNOLD Unavailable Unavailable KYLEE DURON, ROSALBA Unavailable Unavailab le Payers Payer Name Policy Type Policy Number Effective Date Expira tion Date MEDICARE.[facility] [id number] ADMISSIONS.CODEREQUEST.HUM.[facility] [id number] Problems Condition Name Condition Details Condition Category Status Onset Date Resolution Date Last Treatment Date Treating Clinician Comments ENTEROCOLITI S D/T CLOSTRIDIUM DIFFICILE, NOT SPCF RECUR Active 09-11 00:00: 00 ACUTE CHOLECYSTITI S Active 09-11 00:00: 00 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 Active - 00:00: 00 HYPERTENSIVE HEART DISEASE WITHOUT HEART FAILURE Active 08-14 00:00: 00 ATHSCL HEART DISEASE OF [place] CORONARY ARTERY W/O ANG PCTRS Active 08-14 00:00: 00 GENERALIZED ANXIETY DISORDER Active 2022-06 00:00: 00 NONRHEUMATIC AORTIC (VALVE) STENOSIS Active 2022-06 00:00: 00 HYPOTHYROIDI SM, UNSPECIFIED Active 2022-06 00:00: 00 DUODENAL ULCER, UNSP ACUTE OR CHRONIC, W/O HEMOR OR PERF Active 1- 00:00: 00 CERVICALGIA Active 1- 00:00: 00 ENCOUNTER FOR ATTN TO OTH ARTIF OPENINGS OF DIGESTIVE TRACT Active 2022-06 00:00: 00 RETAIL PRODUCT ADVISOR (CURRENT) USE OF ANTICOAGULAN TS Active 06-18 00:00: 00 PRSNL HX OF TIA (TIA), AND CEREB INFRC W/O RESID DEFICITS Active 06-18 00:00: 00 PERSONAL HISTORY OF OTHER DISEASES OF THE DIGESTIVE SYSTEM Active 06-18 00:00: 00 Allergies, Adverse Reactions, Alerts Allergy Name Allergy Type Status Severity Reaction(s) Onset Date Inactive Date Treating Clinician Comments NO KNOWN ALLERGIES Propensity to adverse reactions Inactive 06-22 12:47: 52 2023-08-18 7 00:00:00 PENICILLIN G Propensity to adverse reactions Active 09-12 05:46: 00 EGG Propensity to adverse reactions Active 09-12 05:46: 08 Medications Ordered Medication Name Filled Medication Name Start Date Stop Date Current Medication? Ordering Clinician Indication Dosage Frequency Signature (SIG) Comments Components amoxicillin 875 mg-potassiu m clavulanate 125 mg tablet 06-20 00:00: 00 07-03 23:59 :00 No [id number] CHOLECYSTIT IS 1 tablet 2 TIMES DAILY 1 tablet 2 TIMES DAILY (route: oral) Med Classific ation: Anti-Infe ctive Agents carvedilol 25 mg tablet 06-20 00:00: 00 07-03 23:59 :00 No [id number] CARDIAC DISEASE 1 tablet 2 TIMES DAILY 1 tablet 2 TIMES DAILY (route: oral) Med Classific ation: Cardiovas cular Therapy Agents levothyroxi ne 75 mcg tablet 2022-06 00:00: 00 Yes [id number] HYPOTHYROID ISM 1 tablet EVERY DAY 1 tablet EVERY DAY (route: oral) Med Classific ation: Endocrine simvastatin 40 mg tablet 2022-06 00:00: 00 08-14 00:00 :00 No [id number] HIGH CHOLESTEROL 1 tablet EVERY DAY 1 tablet EVERY DAY (route: oral) Med Classific ation: Cardiovas cular Therapy Agents aspirin 81 mg tablet,jarek yed release 06-22 00:00: 00 09-11 23:59 :00 No [id number] CARDIAC DISEASE 1 tablet DAILY 1 tablet DAILY (route: oral) Med Classific ation: Hematolog ical Agents cholecalcif anna (vitamin D3) 25 mcg (1,000 unit) tablet 06-22 00:00: 00 Yes [id number] SUPPLEMENT 1 tablet DAILY 1 tablet DAILY (route: oral) Med Classific ation: Electroly te Balance-N utritiona l Products clonazepam 0.5 mg tablet 06-22 00:00: 00 07-03 23:59 :00 No [id number] ANXIETY 1 tablet 2 TIMES DAILY 1 tablet 2 TIMES DAILY (route: oral) Med Classific ation: Central Nervous System Agents docusate sodium 100 mg tablet 06-22 00:00: 00 08-14 00:00 :00 No [id number] CONSTIPATIO N 1 tablet 2 TIMES DAILY 1 tablet 2 TIMES DAILY (route: oral) Med Classific ation: Gastroint estinal Therapy Agents nortriptyli ne 50 mg capsule 06-22 00:00: 00 Yes [id number] IMPROVE MOOD 1 capsule DAILY 1 capsule DAILY (route: oral) Med Classific ation: Central Nervous System Agents vitamin B complex tablet 06-22 00:00: 00 08-14 00:00 :00 No [id number] SUPPLEMENT 1 tablet DAILY 1 tablet DAILY (route: oral) Med Classific ation: Electroly te Balance-N utritiona l Products carvedilol 25 mg tablet 07-03 00:00: 00 08-14 00:00 :00 No [id number] HEART .5 tablet 2 TIMES DAILY .5 tablet 2 TIMES DAILY (route: oral) Med Classific ation: Cardiovas cular Therapy Agents clonazepam 0.5 mg tablet 07-03 00:00: 00 08-14 00:00 :00 No [id number] ANXIETY .5 tablet DAILY .5 tablet DAILY (route: oral) Med Classific ation: Central Nervous System Agents clonazepam 0.5 mg tablet 07-03 00:00: 00 08-14 00:00 :00 No [id number] ANXIETY 1 tablet BEDTIME 1 tablet BEDTIME (route: oral) Med Classific ation: Central Nervous System Agents metronidazo le 500 mg tablet -16 00:00: 00 07-10 23:59 :00 No [id number] C DIFFICILE 1 tablet EVERY 8 HOURS 1 tablet EVERY 8 HOURS (route: oral) Med Classific ation: Anti-Infe ctive Agents Vancocin 125 mg capsule -16 00:00: 00 07-15 23:59 :00 No [id number] C DIFFICILE 1 capsule EVERY 6 HOURS 1 capsule EVERY 6 HOURS (route: oral) Med Classific ation: Anti-Infe ctive Agents atorvastati n 80 mg tablet 08-14 00:00: 00 Yes [id number] HIGH CHOLESTEROL 1 tablet BEDTIME 1 tablet BEDTIME (route: oral) Med Classific ation: Cardiovas cular Therapy Agents Eliquis 2.5 mg tablet 08-14 00:00: 00 Yes [id number] HX DVT 1 tablet 2 TIMES DAILY 1 tablet 2 TIMES DAILY (route: oral) Med Classific ation: Hematolog ical Agents metoprolol succinate ER 50 mg tablet,exte nded release 24 hr 08-14 00:00: 00 Yes [id number] HEART DISEASE 1 tablet DAILY 1 tablet DAILY (route: oral) Med Classific ation: Cardiovas cular Therapy Agents multivitami n tablet 08-14 00:00: 00 Yes [id number] SUPPLEMENT 1 tablet DAILY 1 tablet DAILY (route: oral) Med Classific ation: Electroly te Balance-N utritiona l Products pantoprazol e 40 mg tablet,jarek yed release 08-14 00:00: 00 Yes [id number] ACID REDUCTION 1 tablet 2 TIMES DAILY 1 tablet 2 TIMES DAILY (route: oral) Med Classific ation: Gastroint estinal Therapy Agents Probiotic 10 billion cell capsule 08-14 00:00: 00 Yes [id number] IMPROVES GUT HEALTH 1 capsule 2 TIMES DAILY 1 capsule 2 TIMES DAILY (route: oral) Med Classific ation: Gastroint estinal Therapy Agents mirtazapine 7.5 mg tablet 3-06 00:00: 00 09-11 23:59 :00 No [id number] SLEEP 1 tablet BEDTIME 1 tablet BEDTIME (route: oral) Med Classific ation: Central Nervous System Agents clonazepam 0.5 mg tablet 09-11 00:00: 00 Yes [id number] ANXIOUSNESS /RESTLESSNE SS 0.25 mg EVERY 8 HOURS 0.25 mg EVERY 8 HOURS (route: oral) Med Classific ation: Central Nervous System Agents vancomycin 125 mg capsule 09-11 00:00: 00 09-19 23:59 :00 No [id number] C DIFF 1 capsule EVERY 6 HOURS 1 capsule EVERY 6 HOURS (route: oral) Med Classific ation: Anti-Infe ctive Agents Vital Signs Vital Name Observation Time Observation Value Commen ts Temperature 2023-10-10 09:02:00.000 97.6 [degF] Temperature 2023-10-01 12:20:00.000 97.8 [degF] Temperature 2023-09-20 11:40:00.000 97.9 [degF] Temperature 2023-09-12 14:47:00.000 98 [degF] Temperature 2023-08-28 12:25:00.000 97.2 [degF] Temperature 2023-08-23 10:11:00.000 98.4 [degF] Temperature 2023-08-17 10:24:00.000 97.7 [degF] Temperature 2023-08-14 15:08:00.000 97.7 [degF] Temperature 2023-08-14 10:15:00.000 97.9 [degF] BMI (%) 2023-09-12 14:47:00.000 26 kg/m2 BMI (%) 2023-08-14 15:08:00.000 27 kg/m2 BMI (%) 2023-08-14 10:15:00.000 46 kg/m2 Height 2023-09-12 14:47:00.000 62 [in_us] Height 2023-08-14 15:08:00.000 62 [in_us] Height 2023-08-14 10:15:00.000 62 [in_us] Pulse 2023-10-10 09:02:00.000 89 /min Pulse 2023-10-01 12:20:00.000 89 /min Pulse 2023-09-20 11:40:00.000 74 /min Pulse 2023-09-12 14:47:00.000 96 /min Pulse 2023-08-28 12:25:00.000 74 /min Pulse 2023-08-23 10:11:00.000 98 /min Pulse 2023-08-17 10:24:00.000 72 /min Pulse 2023-08-14 15:08:00.000 72 /min Pulse 2023-08-14 10:15:00.000 76 /min O2 Saturation (%) 2023-10-10 09:02:00.000 96 % O2 Saturation (%) 2023-10-01 12:20:00.000 98 % O2 Saturation (%) 2023-09-20 11:40:00.000 97 % O2 Saturation (%) 2023-09-12 14:47:00.000 98 % O2 Saturation (%) 2023-08-23 10:11:00.000 96 % O2 Saturation (%) 2023-08-17 10:24:00.000 97 % O2 Saturation (%) 2023-08-14 10:15:00.000 97 % Respirations 2023-10-10 09:02:00.000 18 /min Respirations 2023-10-01 12:20:00.000 16 /min Respirations 2023-09-20 11:40:00.000 17 /min Respirations 2023-09-12 14:47:00.000 16 /min Respirations 2023-08-28 12:25:00.000 18 /min Respirations 2023-08-23 10:11:00.000 16 /min Respirations 2023-08-17 10:24:00.000 18 /min Respirations 2023-08-14 15:08:00.000 18 /min Respirations 2023-08-14 10:15:00.000 18 /min Weight (lbs) 2023-09-12 14:47:00.000 146 [lb_av] Weight (lbs) 2023-08-14 15:08:00.000 152 [lb_av] Weight (lbs) 2023-08-14 10:15:00.000 253 [lb_av] Systolic Blood Pressure 2023-10-10 09:02:00.000 140 mm [Hg] Systolic Blood Pressure 2023-10-01 12:20:00.000 130 mm [Hg] Systolic Blood Pressure 2023-09-20 11:40:00.000 138 mm [Hg] Systolic Blood Pressure 2023-09-12 14:47:00.000 130 mm [Hg] Systolic Blood Pressure 2023-08-28 12:25:00.000 128 mm [Hg] Systolic Blood Pressure 2023-08-23 10:11:00.000 112 mm [Hg] Systolic Blood Pressure 2023-08-17 10:24:00.000 132 mm [Hg] Systolic Blood Pressure 2023-08-14 15:08:00.000 132 mm [Hg] Systolic Blood Pressure 2023-08-14 10:15:00.000 132 mm [Hg] Diastolic Blood Pressure 2023-10-10 09:02:00.000 70 mm [Hg] Diastolic Blood Pressure 2023-10-01 12:20:00.000 60 mm [Hg] Diastolic Blood Pressure 2023-09-20 11:40:00.000 82 mm [Hg] Diastolic Blood Pressure 2023-09-12 14:47:00.000 60 mm [Hg] Diastolic Blood Pressure 2023-08-28 12:25:00.000 70 mm [Hg] Diastolic Blood Pressure 2023-08-23 10:11:00.000 76 mm [Hg] Diastolic Blood Pressure 2023-08-17 10:24:00.000 68 mm [Hg] Diastolic Blood Pressure 2023-08-14 15:08:00.000 68 mm [Hg] Diastolic Blood Pressure 2023-08-14 10:15:00.000 68 mm [Hg] Plan of Treatment Planned Activity Planned Date Details Comments Future Scheduled Test RN TO OBSE RVE, ASSESS, EVALUATE, AND DEVELOP AN INDIVIDUALIZED PLAN OF CARE. AGENCY MAY ACCEPT ORDERS FROM CONSULTING PHYSICIANS. REGISTERED NURSETO OBSERVE AND ASSESS/LICENSED PRACTICAL NURSE TO OBSERVE FOR RISK FOR FALLS AND INSTRUCT IN FALL PREVENTION, HOME SAFETY, MEDICATION MANAGEMENT, INFECTION PREVENTION, AND NUTRITION MANAGEMENT. REGISTERED NURSE/LICENSED PRACTICAL NURSE MAY PERFORM O2 SATURATION LEVEL ON ADMISSION AND PRN FOR SOB FOR RN TO ASSESS/VP RESEARCH TO OBSERVE PATIENT, WITH NOTIFICATION TO THE PHYSICIAN IF SATURATION IS 90% IN THE ABSENCE OF MORE SPECIFIC PARAMETERS FROM THE PHYSICIAN. AGENCY MAY PERFORM A RESUMPTION OF CARE VISIT FOLLOWING ANY HOSPITAL ADMISSION. REGISTERED NURSE/LICENSED PRACTICAL NURSE TO MONITOR CO-MORBID CONDITIONS LISTED ON THE PLAN OF CARE AND ANY NEW CONDITIONS THAT PRESENT THEMSELVES DURING THIS EPISODE TO IDENTIFY CHANGES AND INTERVENE TO MINIMIZE COMPLICATIONS. [code = RN TO OBSERVE, ASSESS, EVALUATE, AND DEVELOP AN INDIVIDUALIZED PLAN OF CARE. AGENCY MAY ACCEPT ORDERS FROM CONSULTING PHYSICIANS. REGISTERED NURSETO OBSERVE AND ASSESS/LICENSED PRACTICAL NURSE TO OBSERVE FOR RISK FOR FALLS AND INSTRUCT IN FALL PREVENTION, HOME SAFETY, MEDICATION MANAGEMENT, INFECTION PREVENTION, AND NUTRITION MANAGEMENT. REGISTERED NURSE/LICENSED PRACTICAL NURSE MAY PERFORM O2 SATURATION LEVEL ON ADMISSION AND PRN FOR SOB FOR RN TO ASSESS/VP RESEARCH TO OBSERVE PATIENT, WITH NOTIFICATION TO THE PHYSICIAN IF SATURATION IS 90% IN THE ABSENCE OF MORE SPECIFIC PARAMETERS FROM THE PHYSICIAN. AGENCY MAY PERFORM A RESUMPTION OF CARE VISIT FOLLOWING ANY HOSPITAL ADMISSION. REGISTERED NURSE/LICENSED PRACTICAL NURSE TO MONITOR CO-MORBID CONDITIONS LISTED ON THE PLAN OF CARE AND ANY NEW CONDITIONS THAT PRESENT THEMSELVES DURING THIS EPISODE TO IDENTIFY CHANGES AND INTERVENE TO MINIMIZE COMPLICATIONS.] Future Scheduled Test MEDICATION MANAGEMENT; REGISTERED NURSE/LICENSED PRACTICAL NURSE TO REVIEW MEDICATIONS FOR INTERACTIONS, EFFECTIVENESS OF DRUG THERAPY, AND SIGNS/SYMPTOMS OF ADVERSE REACTIONS. MAY INSTRUCT AND REINFORCE MEDICATION TEACHING RELATED TO THE USE OF MEDICATIONS, DOSAGE, FREQUENCY, PURPOSE, SIDE EFFECTS, AND TO REPORT COMPLICATIONS. [code = MEDICATION MANAGEMENT; REGISTERED NURSE/LICENSED PRACTICAL NURSE TO REVIEW MEDICATIONS FOR INTERACTIONS, EFFECTIVENESS OF DRUG THERAPY, AND SIGNS/SYMPTOMS OF ADVERSE REACTIONS. MAY INSTRUCT AND REINFORCE MEDICATION TEACHING RELATED TO THE USE OF MEDICATIONS, DOSAGE, FREQUENCY, PURPOSE, SIDE EFFECTS, AND TO REPORT COMPLICATIONS.] Future Scheduled Test ANTICOAGUL ATION MANAGEMENT; REGISTERED NURSE TO ASSESS AND TEACH/LICENSED PRACTICAL NURSE TO OBSERVE/TEACH/MONITOR EFFECTIVENESS OF ANTICOAGULATION THERAPY. REGISTERED NURSE/LICENSED PRACTICAL TO INSTRUCT ON SIGNS AND SYMPTOMS OF BLEEDING/ADVERSE REACTIONS TO REPORT TO PHYSICIAN. [code = ANTICOAGULATION MANAGEMENT; REGISTERED NURSE TO ASSESS AND TEACH/LICENSED PRACTICAL NURSE TO OBSERVE/TEACH/MONITOR EFFECTIVENESS OF ANTICOAGULATION THERAPY. REGISTERED NURSE/LICENSED PRACTICAL TO INSTRUCT ON SIGNS AND SYMPTOMS OF BLEEDING/ADVERSE REACTIONS TO REPORT TO PHYSICIAN. ] Future Scheduled Test CARDIOVASC ULAR SYSTEM; REGISTERED NURSE TO ASSESS /TEACH, LICENSED PRACTICAL NURSE TO OBSERVE/TEACH RELATED TO ALTERED CARDIOVASCULAR STATUS TO MINIMIZE COMPLICATIONS AND REDUCE HOSPITALIZATION. [code = CARDIOVASCULAR SYSTEM; REGISTERED NURSE TO ASSESS /TEACH, LICENSED PRACTICAL NURSE TO OBSERVE/TEACH RELATED TO ALTERED CARDIOVASCULAR STATUS TO MINIMIZE COMPLICATIONS AND REDUCE HOSPITALIZATION.] Future Scheduled Test HYPERTENSI ON MANAGEMENT; REGISTERED NURSE TO ASSESS AND TEACH/LICENSED PRACTICAL NURSE TO OBSERVE AND TEACH WARNING SIGNS AND SYMPTOMS TO AVOID HOSPITALIZATION. [code = HYPERTENSION MANAGEMENT; REGISTERED NURSE TO ASSESS AND TEACH/LICENSED PRACTICAL NURSE TO OBSERVE AND TEACH WARNING SIGNS AND SYMPTOMS TO AVOID HOSPITALIZATION.] Future Scheduled Test PAIN MANAG EMENT; REGISTERED NURSE TO ASSESS AND TEACH/LICENSED PRACTICAL NURSE TO OBSERVE AND TEACH AND PROVIDE EDUCATION ON PAIN MANAGEMENT TECHNIQUES. [code = PAIN MANAGEMENT; REGISTERED NURSE TO ASSESS AND TEACH/LICENSED PRACTICAL NURSE TO OBSERVE AND TEACH AND PROVIDE EDUCATION ON PAIN MANAGEMENT TECHNIQUES.] Future Scheduled Test GASTROINTE STINAL MANAGEMENT; REGISTERED NURSE TO ASSESS AND TEACH/LICENSED PRACTICAL NURSE TO OBSERVE AND TEACH RELATED TO ALTERED GASTROINTESTINAL STATUS TO MINIMIZE COMPLICATIONS AND REDUCE HOSPITALIZATION. [code = GASTROINTESTINAL MANAGEMENT; REGISTERED NURSE TO ASSESS AND TEACH/LICENSED PRACTICAL NURSE TO OBSERVE AND TEACH RELATED TO ALTERED GASTROINTESTINAL STATUS TO MINIMIZE COMPLICATIONS AND REDUCE HOSPITALIZATION.] Future Scheduled Test FALL REDUC TION MANAGEMENT; REGISTERED NURSE TO ASSESS AND TEACH/LICENSED PRACTICAL NURSE TO OBSERVE AND TEACH ON EDUCATION AND INTERVENTION TO IDENTIFY FALL RISK FACTORS SUCH MEDICATIONS THAT MAY CAUSE DIZZINESS, CHRONIC DISEASES, PSYCHOLOGICAL FACTORS, AND EMPOWER/EDUCATE PATIENT/CAREGIVER TO MINIMIZE FALL RISK. [code = FALL REDUCTION MANAGEMENT; REGISTERED NURSE TO ASSESS AND TEACH/LICENSED PRACTICAL NURSE TO OBSERVE AND TEACH ON EDUCATION AND INTERVENTION TO IDENTIFY FALL RISK FACTORS SUCH MEDICATIONS THAT MAY CAUSE DIZZINESS, CHRONIC DISEASES, PSYCHOLOGICAL FACTORS, AND EMPOWER/EDUCATE PATIENT/CAREGIVER TO MINIMIZE FALL RISK.] Future Scheduled Test PHYSICAL T HERAPIST TO EVALUATE FOR STRENGTHENING. [code = PHYSICAL THERAPIST TO EVALUATE FOR STRENGTHENING.] Future Scheduled Test OCCUPATION AL THERAPIST TO EVALUATE FOR ADL MANAGEMENT. [code = OCCUPATIONAL THERAPIST TO EVALUATE FOR ADL MANAGEMENT. ] Future Scheduled Test RISK FOR H OSPITALIZATION; REGISTERED NURSE TO ASSESS /TEACH, LICENSED PRACTICAL NURSE TO OBSERVE/TEACH PATIENT/CAREGIVER ON RISK FOR HOSPITALIZATION/EMERGENCY ROOM VISITS, TEACH SIGNS AND SYMPTOMS THAT PUT PATIENT AT RISK, WHEN TO NOTIFY NURSE/PHYSICIAN OF COMPLICATIONS/DECLINE, AND WHEN TO CALL 911. [code = RISK FOR HOSPITALIZATION; REGISTERED NURSE TO ASSESS /TEACH, LICENSED PRACTICAL NURSE TO OBSERVE/TEACH PATIENT/CAREGIVER ON RISK FOR HOSPITALIZATION/EMERGENCY ROOM VISITS, TEACH SIGNS AND SYMPTOMS THAT PUT PATIENT AT RISK, WHEN TO NOTIFY NURSE/PHYSICIAN OF COMPLICATIONS/DECLINE, AND WHEN TO CALL 911.] Goal Patient Goal - GET BETTER Goal 2023-09-12 Patient Goal - GET BACK HOME Goal 2023-08-17 Patient Goal - GET BACK HOME Goal 2023-10-10 Patient Goal - P LACEMENT IN AN ASSISTED LIVING Goal Provider Goal - A PLAN OF CARE WILL BE ESTABLISHED THAT MEETS THE PATIENTS NEEDS. PATIENT WILL DEMONSTRATE OXYGEN SATURATION WITHIN NORMAL LIMITS OR PATIENTS OPTIMAL LEVEL ESTABLISHED BY THE PHYSICIAN THROUGHOUT CARE. CHANGES TO CO-MORBID CONDITIONS AND ANY NEW CONDITIONS WILL BE IDENTIFIED AND REPORTED TO THE PHYSICIAN. Goal Provider Goal - PATIENT/CAREGIVER TO VERBALIZE, AND CONSISTENTLY DEMONSTRATE EFFECTIVE, SAFE MANAGEMENT OF MEDICATION INCLUDING KNOWLEDGE OF EFFECTIVENESS, POTENTIAL SIDE EFFECTS AND DRUG REACTIONS AND WHEN TO CONTACT THE APPROPRIATE CARE PROVIDER. PATIENT/CAREGIVER WILL BE ABLE TO VERBALIZE UNDERSTANDING OF MEDICATION REGIMEN AND ACCURATELY TAKE MEDICATIONS PRESCRIBED WITHOUT ADVERSE EFFECTS BY END OF EPISODE. Goal Provider Goal - INEFFECTIVE ANTICOAGULATION THERAPY WILL BE IDENTIFIED AND PROMPTLY REPORTED TO THE PHYSICIAN. PATIENT / CAREGIVER WILL VERBALIZE UNDERSTANDING OF MEASURES TO MAINTAIN EFFECTIVE ANTICOAGULATION THERAPY BY END OF EPISODE. Goal Provider Goal - PATIENT / CAREGIVER WILL VERBALIZE/DEMONSTRATE UNDERSTANDING OF MEASURES TO MANAGE ALTERED CARDIOVASCULAR STATUS BY END OF EPISODE. Goal Provider Goal - PATIENT / CAREGIVER WILL VERBALIZE/DEMONSTRATE AN ABILITY TO ADHERE TO SELF-MANAGEMENT OF HTN TO MINIMIZE COMPLICATIONS AND AVOID HOSPITALIZATION BY END OF EPISODE. Goal Provider Goal - PATIENT / CAREGIVER WILL VERBALIZE / DEMONSTRATE UNDERSTANDING OF PAIN CONTROL MEASURES BY END OF EPISODE. Goal Provider Goal - PATIENT / CAREGIVER WILL VERBALIZE/DEMONSTRATE UNDERSTANDING OF MEASURES TO MANAGE ALTERED GASTROINTESTINAL STATUS BY END OF EPISODE. Goal Provider Goal - PATIENT/CAREGIVER ABLE TO IDENTIFY FALL RISK FACTORS AND IMPLEMENT STRATEGIES TO MINIMIZE FALL RISK. PATIENT/CAREGIVER WILL VERBALIZE/DEMONSTRATE AN ABILITY TO ADHERE TO FALL REDUCTION SELF MANAGEMENT AND LIFE-STYLE CHANGES AT DISCHARGE. PERSONAL GOAL(S) STATED BY PATIENT/CAREGIVER WILL BE MET BY END OF EPISODE. Goal Provider Goal - Goal Provider Goal - Goal Provider Goal - PATIENT/CAREGIVER WILL VERBALIZE UNDERSTANDING OF SIGNS AND SYMPTOMS THAT PUT THE PATIENT AT RISK FOR HOSPITALIZATION /EMERGENCY ROOM VISITS, WHEN TO NOTIFY NURSE/PHYSICIAN OF COMPLICATIONS/DECLINE AND WHEN TO CALL 911. Reason for Visit INDEPENDENT IN THE HOME Encounters Start Date/Time End Date/Time Encounter Type Admission Type Attending [facility] Care Department Encounter ID Discharge Date Discharge Status Discharge Condition Discharge Reason Percent Goals Met 2023-08-14 00:00:00 2023-10-10 00:00:00 Outpatient ROSALBA DIMAS [facility] [id number] 2023-10-10 00:00:00 DISCHARGE TO HOME OR SELF CARE INDEPENDEN T IN THE HOME HH OR PAL- GOALS MET 92.00
[2024-06-04 12:27] LABS: Appearance Urine Cloudy; Color Urine Dark Yellow; Glucose Urine UA Negative (Negative); Leukocyte Esterase Urine Large (3+) (Negative); Nitrite Urine Negative (Negative); UMIC TRIGGER UA YES; Urine Blood Negative (Negative); Urine Ketones Negative (Negative); Urine Protein Negative (Neg-Trace)
[2024-06-04 12:35] LABS: Bacteria Urine 2+ (None Seen); Hyaline Casts Urine 0-2 /LPF (0-2); Other Crystals Urine Present; RBC Urine 0-2 /HPF (0-2)
== END 2024-06-04 11:26 | disposition home or self-care (01) ==
LOC: HO.LAB 11:25
PROVIDERS: PCP Internal Medicine; Visit Provider Internal Medicine
DX: R39.9 Unspecified symptoms and signs involving the genitourinary system (principal)
CPT/HCPCS: 81001

== ENCOUNTER → 2024-09-09 13:57 | Outpatient (REF) | payer MEDICARE, SELFPAY ==
--- NOTE | 2024-09-09 14:00 | CA_ITS ---
Transthoracic Echocardiogram Patient (Last, First, Middle): Denise Sharp, Gender: Female Date of : 1940 Age: 84 Procedure Date: 09/09/2024 Procedure Type: Transthoracic Echocardiogram Location: OP Height: 157.48 cm Weight: 61.24 kg BSA: 1.62 m2 Heart Rate: bpm BP: 134 / 82 mmHg Ebd Teacher: MILEY Referring MD: Jerman Mendoza MD Jewel Diameter Gauger: Earle Hines MD Symptoms: I35.0 - Nonrheumatic aortic (valve) stenosis Study Quality: Fair ECG Rhythm: Sinus Conclusions: - 1. Oroj-nw-fkwmsfto LV systolic dysfunction with LVEF of 40-45% with impaired relaxation filling pattern 2. Mild left atrial enlargement 3. Critical aortic stenosis with aortic valve area of 0.54 cm2 with mean gradient of 54 mm Hg 4. Mild aortic regurgitation 5. Normal calculated RV systolic pressure Findings Left Ventricle Normal left ventricular cavity size. There is mildly increased left ventricular wall thickness. The left ventricular systolic function is mild to moderately decreased. The visually estimated ejection fraction is between 40-45%. Spectral Doppler is indicative of an impaired relaxation filling pattern. Right Ventricle Normal right ventricular cavity size and systolic function. Atria The left atrium is mildly dilated. There is no evidence of interatrial shunt. The right atrium is likely dilated. Aortic Valve There is moderate calcification of the aortic valve. There is severe aortic valve stenosis. The peak aortic gradient is 84 mmHg.The mean gradient is 54 mmHg. The aortic valve area is 0.55 cm2. There is mild aortic valve regurgitation. Mitral Valve There is moderate anterior and posterior mitral leaflet thickening. There is severe mitral annular calcification. There is mild mitral valve regurgitation. There is mild to moderate mitral valve stenosis. Pulmonic Valve The pulmonic valve was not well visualized. Tricuspid Valve Likely normal tricuspid valve structure and function. There is mild tricuspid valve regurgitation. The right ventricular systolic pressure is normal. The right ventricular systolic pressure is 25 mmHg. Normal right atrial pressure. There is no evidence of pulmonary hypertension. Great Vessels All visible segments of the aorta are normal in size. The pulmonary artery was not well visualized. There is no dilatation of the ascending aorta measuring 3.40 cm. Venous The inferior vena cava is normal in size and collapses greater than 50% with inspiration. Pericardium/Pleural There is no evidence of pericardial effusion. Prior Study Comparison Changes noted compared to prior study dated: 12/13/2016. LV ejection fraction has reduced. Critical aortic stenosis is now present. findings discussed with Dr. Thomas Measurements 2D Linear Measurements IVSd: 1.31 0.6-0.9/0.6-1.0 cm LVIDd: 3.96 3.9-5.3/4.2-5.9 cm LVIDd Index: 2.44 2.4-3.2/2.2-3.1 cm/m2 LVIDs: 3.26 2.0-3.6 cm LVPWd: 1.14 0.7-1.1 cm LA Diam: 3.50 2.7-3.8/3.0-4.0 cm LAIDs Index: 2.16 1.5-2.3 cm/m2 LV Mass: 209.33 67-162/88-224 g LV Mass Index: 129.21 43-95/49-115 g/m2 LVOT Diam: 2.00 3.0+(-)1.3 cm 2D Systolic Function EF 4C: 40.40 >55% EF 2C: 41.40 >55% EF BiP: 40.00 >55% Mitral Valve MV VTI: 0.43 MV Pk Carlos: 2.10 MV Mn Carlos: 1.30 MV Pk Grad: 18.00 MV Mn Grad: 8.00 MV Pk E: 1.30 MV PK A: 1.88 MV Decel Time: 162.00 E/A: 0.70 E'Lateral: 3.37 E'Medial: 2.18 E/E' Med: 59.60 E/E' Lat: 38.60 PHT: 47.00 MVA PHT: 4.68 MVA Continuity: 1.40 Decel Gaines: 8.03 Aortic Valve AoV Pk Carlos: 4.57 AoV Mn Carlos: 3.45 AoV VTI: 1.10 AoV Pk Grad: 84.00 Aov Mn Grad: 54.00 ALEJANDRO Cont.VTI: 0.55 AI Pk Carlos: 3.49 AI Gaines: 2.85 LVOT LVOT Pk Carlos: 0.88 LVOT Mn Carlos: 0.60 LVOT VTI: 0.19 LVOT Pk Grad: 3.00 LVOT Mn Grad: 2.00 LVOT Diam: 2.00 LVOT Area: 3.14 Diastolic Function MV Pk E: 1.30 MV Pk A: 1.88 E/A: 0.70 E'Medial: 2.18 E/E' Med: 59.60 E' Laterial: 3.37 E/E' Lat: 38.60 Right Ventricle TAPSE (mm): 20.30 TVS' Carlos: 11.10 Tricuspid Valve TR Pk Carlos: 2.08 TR Pk Grad: 17.00 RA Press: 8.00 RVSP: 25.00 Great Vessels Aorta Sinus of Valsalva: 3.15 2.0-3.[address] [place]: 2.13 1.7-3.4 cm Ao Asc: 3.40 2.1-3.4 cm Updated in Other Vendor System with Status of Final Earle Hines MD electronically signed on 09/09/2024 4:12:32 PM with status of Final
--- OUTSIDE RECORDS SUMMARY | 2024-09-09 17:22 | XMS_ITS ---
Author Organization [facility] Care Team Providers Care Tableau Developer Name Role Phone Deisi Russo Unavailable Unavailable Lucian Canela Unavailable Unavailable Shellie Castellanos Unavailable Unavailable Allergies and adverse reactions Code CodeSystem Substance Reaction Severity StartDate Concern Status 7984 RXNORM Penicillin Unknown 07/20/[address] Eggs Unknown 07/20/2023 active Care Team Name Role Address Phone Organization Dates Lucian Canela PCP [address], [address], [place] (Office): : [facility] 07/20/2023 - 08/09/2023 Deisi Russo Attending Physician [address] [address], [place], [address], [facility] 07/20/2023 - 08/09/2023 Shellie Castellanos Attending Physician [address], [address], [facility] (Office): [facility] 07/20/2023 - 08/09/2023 Immunizations Immunization Status Vaccine Details Vaccine Code CodeSystem Kashif e Notes (COVID-19) 0534-7704 Updated [employer] [place] Vaccine cancelled SARS-COV-2 (COVID-19) vaccine, mRNA, spike protein, LNP, preservative free, syd-sucrose, 30 mcg/0.3 mL dose 309 CVX created date: 08/03/2023 consent date: 08/02/2023 Mental Status Section Date Assessment Total Score Description 08/09/2023 BIMS 11 moderate cognit lucio impairment CAM 0 No delirium ind icated 07/26/2023 BIMS 11 moderate cognit lucio impairment CAM 0 No delirium ind icated Problems Problem # Description Date of onset Resolved Date Code CodeSystem Concern Status 1 ANEMIA, UNSPECIFIED 07/25/[address] active 2 GASTROINTESTINAL HEMORRHAGE, UNSPECIFIED 07/25/[address] active 3 ACUTE EMBOLISM AND THROMBOSIS OF UNSPECIFIED POPLITEAL VEIN 07/20/[address] active 4 ACUTE PANCREATITIS WITHOUT NECROSIS OR INFECTION, UNSPECIFIED 07/20/[address] active 5 ANXIETY DISORDER, UNSPECIFIED 07/20/[address] active 6 ATHEROSCLEROTIC HEART DISEASE OF [place] CORONARY ARTERY WITHOUT ANGINA PECTORIS 07/20/[address] active 7 CALCULUS OF BILE DUCT WITHOUT CHOLANGITIS OR CHOLECYSTITIS WITHOUT OBSTRUCTION 07/20/[address] active 8 DIZZINESS AND GIDDINESS 07/20/[address] active 9 ENTEROCOLITIS DUE TO CLOSTRIDIUM DIFFICILE, NOT SPECIFIED RECURRENT 07/20/[address] active 10 ESSENTIAL (PRIMARY) HYPERTENSION 07/20/[address] active 11 HYPOTHYROIDISM, UNSPECIFIED 07/20/[address] active 12 MUSCLE WASTING AND ATROPHY, NOT ELSEWHERE CLASSIFIED, MULTIPLE SITES 07/20/[address] active 13 NONRHEUMATIC AORTIC (VALVE) STENOSIS 07/20/[address] active 14 OTHER LACK OF COORDINATION 07/20/[address] active 15 RUPTURE OF POPLITEAL CYST 07/20/[address] active 16 UNSPECIFIED ABDOMINAL PAIN 07/20/[address] active 17 UNSPECIFIED PROTEIN-CALORIE MALNUTRITION 07/20/[address] active Reason for Referral No Reasons for Referral Entered Social History Social History Observation Description Start Date End Date Code Code System Current Smoking Status Tobacco smoking consumption unknown 856175679 SNOMED CT Sex Assigned At Female 1940 76432-2 [facility] Vital Signs Code Code System Vitals Name Values and Units Timing Information 39526-9 [facility] Pain Level Value=0.0 08/09/2023 8462-4 [facility] Blood Pressure-Diastolic Value=77 Un its=mmHg 08/09/2023 8480-6 [facility] Blood Pressure-Systolic Rqycj=678 Un its=mmHg 08/09/2023 8867-4 [facility] Heart rate Value=89.0 Units=/min 31321-3 [facility] Weight Qlfoa=336.5 Units=Lbs 8310-5 [facility] Body Temperature Value=99.3 Units=?? F 08/01/2023 9279-1 [facility] Respiratory Rate Value=22.0 Units=/m in 07/23/2023 06574-0 [facility] O2 % BldC Oximetry Value=99.0 Units= % 07/23/2023 8302-2 [facility] Height Value=64.0 Units=Inches 07/20/2023
--- OUTSIDE RECORDS SUMMARY | 2024-09-09 17:22 | XMS_ITS | Patient Health Record ---
Author Organization [facility] Address [address] [place] [address] Care Team Providers Care Equal Opportunity Director Name Role Phone CHERYLKAYAWEIROWAN Primary Care Provider Beulah Ghosh Unavailable [phone] Allergies Allergen (clinical drug ingredient) Drug/Non Drug Allergy documented on EMR Reaction Allergy Type Onset Date Status Penicillin Rash Drug Allergy Active Reason For Referral No Information Medications Medication SIG (Take, Route, Fr equency, Duration) Notes Start Date End Date Status KlonoPIN 0.5MG 1 ORAL 3-4 TIMES A DAY for -2 [facility] 01/17 Active Pamelor 50MG 1 ORAL at bedtime for -3 [facility] 01/17/2013 Active Vitamin D3 1000 IU ORAL daily for -3 [facility] 01/17/2013 Active Simvastatin 40 MG 1 tablet in the even ing Orally Once a day Active Synthroid 0.05 mg 1 tablet Orally Once a day Active Baby Aspirin Active Bystolic 10 MG 1 tablet Orally Once a day Active Benicar 10MG 1 ORAL daily for -3 [facility] 01/17/2013 Active Social History Tobacco Use: Social History Observation Description Date Details (start date - stop date) Never Smoker NA - NA Tobacco Use/Smoking Question Answer Notes Are you a nonsmoker Alcohol Screen (Audit-C) Question Answer Notes Did you have a drink containing alcohol in the p ast year? No Points 0 Interpretation Negative Sexual History Question Answer Notes Had sex in the past 12 months (vaginal, oral, or anal)? No Section Notes: Nutrition: Average Children: 2 children Contraception: tubal ligation, menopause Text messaging while driving: no Marital status: 2012 Exercise: regular cardio Sexual activity: no .CE: Alcohol: none Illicit drugs: no Seatbelt: yes Sunscreen: yes Nutrition: Average Children: 2 children Contraception: tubal ligation, menopause Text messaging while driving: no Marital status: 2012 Exercise: regular cardio Sexual activity: no .CE: Alcohol: none Illicit drugs: no Seatbelt: yes Sunscreen: yes Nutrition: Average Children: 2 children Contraception: tubal ligation, menopause Text messaging while driving: no Marital status: 2012 Exercise: regular cardio Sexual activity: no .CE: Alcohol: none Illicit drugs: no Seatbelt: yes Sunscreen: yes Nutrition: Average Children: 2 children Contraception: tubal ligation, menopause Text messaging while driving: no Marital status: 2012 Exercise: regular cardio Sexual activity: no .CE: Alcohol: none Illicit drugs: no Seatbelt: yes Sunscreen: yes Problems Problem Type SNOMED Code ICD Code Onset Dates Problem Status W/U Status Risk Notes Problem Postmenopausal atrophic vaginitis (55297620) Postmenopausal atrophic vaginitis (N95.2) Active confirmed Problem Age-related osteoporosis (485824304) Age-related osteoporosis without current pathological fracture (M81.0) Active confirmed Problem Essential hypertension (92702013) Essential (primary) hypertension (I10) Active confirmed Problem Hyperlipidemia (85347398) Hyperlipidemia, unspecified (E78.5) Active confirmed Problem Anxiety disorder (205103000) Anxiety disorder, unspecified (F41.9) Active confirmed Problem Functional urinary incontinence (440882805) Functional urinary incontinence (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.81) Active confirmed Problem Menopausal symptom (81761435) Symptomatic menopausal or female climacteric states (627.2) Active confirmed Major Problem Osteoporosis (99213595) Unspecified osteoporosis (733.00) Active confirmed Diag Plan Of Treatment Pending Test Test Name Order Date X ray : Pelvis 04/09/2017 BONE DENSITY EXTREMITY 07/02/2019 DEXA 07/21/2014 MAMMOGRAM, SCREENING 07/21/2014 MAMMOGRAM, SCREENING 07/02/2019 MAMMOGRAM, SCREENING 05/15/2017 Urinalysis 07/21/2014 Ultrasound : Pelvic 11/22/2016 BONE DENSITY 05/16/2018 BONE DENSITY 05/15/2017 MM Digital Mammo Screening 05/15/2017 MM Digital Mammo Screening 07/02/2019 MM Digital Mammo Screening 05/16/2018 Insurance Providers Payer Name Payer Address Payer Phone Subscriber Number Group Number Insured Name Patient Relationship to Insured Coverage Start Date Coverage End Date MEDICARE [address] OBDULIA SHAIKH [id number] JHONNY ADAM Self - patient is the insured MED[employer] [address] [place] [address] [id number] JHONNY ADAM Self - patient is the insured Medical (General) History Medical History History ICD Code Postmenopausal atrophic vaginitis N95.2 Subacute and chronic vaginitis N76.1 Age-related osteoporosis without current pathological fracture M81.0 Menopausal and female climacteric states N95.1 Other specified conditions a ssociated with female genital organs and menstrual cycle N94.89 Vaginitis and vulvovaginitis 616.1 Essential (primary) hypertension Anxiety disorder, unspecified Hyperlipidemia, unspecified Surgical History Surgery Date(Month/Year) Appendectomy Bilateral Tubal Ligation Colonoscopy Hospitalization History Reason Date(Month/Year) 2 Vaginal Deliveries See Surgical Hx
--- OUTSIDE RECORDS SUMMARY | 2024-09-09 17:23 | XMS_ITS | Patient Health Record ---
Author Organization [facility] Address [address] [place] [place] [address] Care Team Providers Care Check Writer Name Role Phone Jerman Mendoza Primary Care Provider Usha Huynh Unavailable [phone] Allergies Allergen (clinical drug ingredient) Drug/Non Drug Allergy documented on EMR Reaction Allergy Type Onset Date Status sulfamethoxazole / trimethoprim Bactrim Unknown Drug Allergy Active Penicillin Unknown Drug Allergy Active Reason For Referral No Information Medications Medication SIG (Take, Route, Frequency, Duration) Notes Start Date End Date Status Atorvastatin Calcium 80 MG 1 tablet Oral ly Once a day Active Metoprolol Succinate 50 MG 1 capsule Ora lly Once a day Active Nortriptyline HCl 50 MG 1 capsule at bed time Orally Once a day Active clonazePAM 0.5 MG 1 tablet Orally Once a day Active Vitamin D3 Active Multivitamin Active Levothyroxine Sodium 75 MCG 1 capsule in the morning on an empty stomach Orally Once a day Active Eliquis 2.5 MG as directed Orally Active Pantoprazole Sodium 40 MG 1 tablet 1/2 t o 1 hour before morning meal Orally Once a day Active Probiotic Active Social History Tobacco Use: Social History [...] ast year? No Points 0 Interpretation Negative Problems Problem Type SNOMED Code ICD Code Onset Dates Problem Status W/U Status Risk Notes Problem Atherosclerosis of [place] artery of both lower extremities, with unspecified presence of clinical manifestation (I70.203) Active confirmed Q7(A), Q8(2B), Q9(1B,2C) Vital Signs Blood pressure diastolic 80 mm Hg 06/19/2024 Height 5ft4in in 06/19/2024 Blood pressure systolic 120 mm Hg 06/19/2024 Weight 150 lbs 06/19/2024 BMI 25.74 kg/m2 06/19/2024 Procedures Procedure Date Ordered Date Performed Result Body Sit e 34025-DLVN SKIN LESIONS, OVER 4 06/19/2024 N/A Encounters Encounter Location Date Provider Diagnosis [address] [address] 06/19/2024 Usha Huynh Pain in right toe(s) M79.674 ; Onychomycosis B35.1 ; Pain in left toe(s) M79.675 ; Atherosclerosis of [place] artery of both lower extremities, with unspecified presence of clinical manifestation I70.203 and T[facility]guium B35.[facility] [address] 05/13/2024 Usha Huynh Assessments Encounter Date Diagnosis (ICD Code) Assessment Notes Treatment Notes Treatment Clinical Notes Section Notes 06/19/2024 Pain in right toe(s) (ICD-10 - M79.674) 06/19/2024 Onychomycosis (ICD-10 - B35.1) 06/19/2024 Pain in left toe(s) (ICD-10 - M79.675) 06/19/2024 Atherosclerosis of [place] artery of both lower extremities, with unspecified presence of clinical manifestation (ICD-10 - I70.203) Q7(A), Q8(2B), Q9(1B,2C) 06/19/2024 Tinea unguium (ICD-10 - B35.1) Plan Of Treatment Pending Test Test Name Order Date 05644-NNGP SKIN LESIONS, OVER 4 06/19/19 Next Appt Details Provider Name:Usha deleon, 12/15/2024 02:30:00 PM, [address] [place] [address], [phone], Insurance Providers Payer Name Payer Address Payer Phone Subscriber Number Group Number Insured Name Patient Relationship to Insured Coverage Start Date Coverage End Date Medicare National [employer] [address] [place] [address] [id number] Denise Sharp Self - patient is the insured 6 [employer] [address] [place] [address] [phone] [id number] Denise Sharp Self - patient is the insured Medical (General) History Medical History History ICD Code Anxiety CAD (Cholesterol) Dementia Depression Gall bladder problems Heart disease High Blood Pressure thyroid Stenosis Heart valve conditions/replacement Transfusions susceptible C-diff Surgical History Surgery Date(Month/Year) Gall bladder removal - C diff infection: drain 06/18/23 appendectomy ulcer cautherization 09/08
--- OUTSIDE RECORDS SUMMARY | 2024-09-09 17:23 | XMS_ITS ---
Author Organization [facility] Address [address] [place] [address] Care Team Providers Care Community Outreach Advocate Name Role Phone Kelly, Kartik Primary Care Provider [phone] Usha Huynh Unavailable [phone] Allergies Allergen (clinical drug ingredient) Drug/Non Drug Allergy documented on EMR Reaction Allergy Type Onset Date Status sulfamethoxazole / trimethoprim Bactrim Unknown Drug Allergy Active Penicillin Unknown Drug Allergy Active REASON FOR VISIT At Risk Footcare, Painful Nail(s) aggravated by shoes and causing difficulty standing/walking. Medications Medication SIG (Take, Route, Frequency, Duration) Notes Start Date End Date Status Atorvastatin Calcium 80 MG 1 tablet Oral ly Once a day Active Metoprolol Succinate 50 MG 1 capsule Ora lly Once a day Active Nortriptyline HCl 50 MG 1 capsule at bed time Orally Once a day Active clonazePAM 0.5 MG 1 tablet Orally Once a day Active Levothyroxine Sodium 75 MCG 1 capsule in the morning on an empty stomach Orally Once a day Active Vitamin D3 Active Multivitamin Active Eliquis 2.5 MG as directed Orally [...] W/U Status Risk Notes Problem Atherosclerosis of alturas artery of both lower extremities, with unspecified presence of clinical manifestation (I70.203) Active confirmed Q7(A), Q8(2B), Q9(1B,2C) Vital Signs Height 5ft4in in 06/19/2024 Weight 150 lbs 06/19/2024 BMI 25.74 kg/m2 06/19/2024 Blood pressure systolic 120 mm Hg 06/19/19 25 Blood pressure diastolic 80 mm Hg 025 Procedures Procedure Date Ordered Date Performed Result Body Sit e 25524-QPQS SKIN LESIONS, OVER 4 06/19/2024 N/A Encounters Encounter Location Date Provider Diagnosis [facility] [address] [address] 06/19/2024 Usha Huynh Pain in right toe(s) M79.674 ; Onychomycosis B35.1 ; Pain in left toe(s) M79.675 ; Atherosclerosis of alturas artery of both lower extremities, with unspecified presence of clinical manifestation I70.203 and Tinea unguium B35.1 Assessments Encounter Date Diagnosis (ICD Code) Assessment Notes Treatment Notes Treatment Clinical Notes Section Notes 06/19/2024 Pain in right toe(s) (ICD-10 - M79.674) 06/19/2024 Onychomycosis (ICD-10 - B35.1) 06/19/2024 Pain in left toe(s) (ICD-10 - M79.675) 06/19/2024 Atherosclerosis of alturas artery of both lower extremities, with unspecified presence of clinical manifestation (ICD-10 - I70.203) Q7(A), Q8(2B), Q9(1B,2C) 06/19/2024 Tinea unguium (ICD-10 - B35.1) Plan Of Treatment Pending Test Test Name Order Date 76783-FFOR SKIN LESIONS, OVER 4 06/19/19 25 Next Appt Details Follow Up: 6 Months, Reason: Provider Name:Usha deleon, 12/15/2024 02:30:00 PM, [address] [place] [address], [id number], Procedure Notes * Category Sub-Category Detail Notes Debride Nail 6-10 Nail debridement Due to the cl inical pathology outlined in the exam findings, performance of this nail treatment is medically necessary as its management by an unskilled/untrained nonprofessional would put this patients foot and overall health at risk. Therefore, debridement to affected nail(s), as described in exam ( T1, T2, T3, T4, T6, T7, T8, T9, ), was performed exclusively by the physician of record to reduce/remove overall nail length, girth, thickness, subungual debris, and necrotic tissue, by manual and/or electrical means through the use of a nail nipper and/or dremel-type cast shell grinder, to a more viable healthy nail plate or bed tissue 6-10 nails in total. Silver nitrate was used for any petechial bleeding as necessary. Definitive antifungal treatment options, both pharmaceutical and surgical, have been reviewed and discussed with the patient. The patient solely prefers the use of intermittent/as needed professional debridement services for their nail condition and understands the need for additional periodic treatments to maintain effectiveness in symptomatic relief - 71425 Keratoma Treatment Parring or Cutting o f Benign Hyperkeratotic Lesion(s) (-57) More than 4 Lesions - Due to the at risk nature of the patients medical condition as documented in the exam findings, performance of this keratoderma treatment is medically necessary as its management by an unskilled/untrained nonprofessional would put this patients foot and overall health at risk. Therefore, the benign hyperkeratotic lesions, ( 6 ) in total, locations as stated and described in the exam (sub 1st MPJ b/l, medial IPJ TA, T5, plantar heels B/L), were pared, and/or cut utilizing a sterile 15 blade, tissue nippers, and/or power dremel instrumentation by the physician of record - 60533, Q8 Progress Notes * Denise SHARP MDOB:1939 (84 yo F)Acc No.[id number]:06/19/2024 Progress Notes Patient:?Denise SHARP Provider:?Usha Huynh DPM :1940???Age:84 Y???Sex:Female D ate:06/19/2024 Address:[address] [place] [address], [place], [id number] Pcp:Jerman Mendoza Subjective: * Chief Complaints: * ???At Risk FootcarePainful N ail(s) aggravated by shoes and causing difficulty standing/walking. * HPI: ???Painful Nails:?Nature:?aching, tender, discolored, thick.?Location:?Both feet, all nails especially second toe Right foot.?Duration:?several months.?Course:?worse.?Aggravated by:?shoegear causing difficulty standing/walking.?Treatments:?none.?At Risk footcare:?Pt States Last PCP Visit:?Date?06/05/2024 * ROS:?General/Constitutional:?Nausea?denies.?Vomiting?denies.?Hunger Thirst?denies.?Loss appetite?denies.?Chills?denies.?Fatigue?denies.?Fever?denies.?Night Sweats?denies.?Unexplained weight loss?denies.?Unexplained weight gain?denies.?HEENTM:?Dentures?denies.?Dizziness?denies.?Glasses/contacts?admits.?Retinopathy?de nies.?Blurred/double vision?denies.?TMJ?denies.?Discharge/drainage?denies.?Implants?denies.?Sore throat?denies.?Dental implants?denies.?Hard of hearing ?denies.?Difficulty chewing/swallowing/speaking?denies.?Nose bleeds?denies.?Sore mouth?denies.?Respiratory:?On Oxygen?denies.?Pneumonia/pleurisy?denies.?Bronchitis?denies.?Emphysema?denies.?C oughing?denies.?Cough blood?denies.?Shortness of breath?admits.?Wheezing?denies.?Cardiovascular:?Pacemaker?denies.?MVP?denies.?WPW?denies.?CHF?denies.?Heart attack?denies.?Septal defect?denies.?Rapid beat?denies.?Chest pain ?denies.?Atrial Fib.?denies.?Murmur/Palpitations?denies.?Gastrointestinal:?Hemorrhoids?denies.?Stomach/Abdominal pain?denies.?Dark blood stool?denies.?Irritable bowel ?denies.?Constipation?denies.?Diarrhea?denies.?Hematology:?Swelling?denies.?Clots?denies.?Varicose Veins?denies.?Bruising?denies.?Bleeding problem?denies.?Genitourinary:?Blood urine?denies.?Frequent/Painfu/urination/bladder control?denies.?Kidney stones?denies.?Infection (UTI)?denies.?Nephropathy?denies.?sex trans dis (STD)?denies.?Prostate?denies.?Musculoskeletal:?Hammertoes?denies.?Bunions?denies.?Back Pain?denies.?Muscle Cramps/ Resting?denies.?Muscle cramps / walking?denies.?Generalized aches and pains?denies.?Weakness?denies.?Integ.:?Araujo?denies.?Scars?denies.?Corns/calluses?denies.?Ingrown nails?denies.?Painful nails?denies.?Open Sores?denies.?Rashes?denies.?Neurologic:?Difficulty sleeping?denies.?Brain disorder?denies.?Numbness?denies.?Balance trouble?denies.?Confusion?denies.?Fainting/blackouts?denies.?Tingling?denies.?Tr emors?denies.? * Medical History:? * Surgical History:?Gall bladd er removal - C diff infection: drain 06/18/23appendectomy ulcer cautherization 09/08 * Hospitalization/Major Diagno stic Procedure:?Denies Past Hospitalization * Family History:?Mother: dece ased.?Father: .? * Social History:?Tobacco Use:?Tobacco use other than smoking?Are you an other tobacco user??No ?Tobacco Control (Standard)?Tobacco use:?Nonsmoker ?Additional Findings: Tobacco non-user?Current nonsmoker ???Drugs/Alcohol:?Drugs?Have you used drugs other than those for medical reasons in the past 12 months??No ???Miscellaneous:?Caffeine: no. ?Children: yes, 1 son. ?Exercise: no. ?Marital status: . ???Drug/Alcohol:?AUDIT-C (Standard)?Did you have a drink containing alcohol in the past year??No ?Points?0 ?Interpretation?Negative * Medications:?TakingLevothyro xine Sodium 75 MCG Capsule 1 capsule in the morning on an empty stomach Orally Once a day Atorvastatin Calcium 80 MG Tablet 1 tablet Orally Once a day Metoprolol Succinate 50 MG Capsule ER 24 Hour Sprinkle 1 capsule Orally Once a day Nortriptyline HCl 50 MG Capsule 1 capsule at bedtime Orally Once a day clonazePAM 0.5 MG Tablet 1 tablet Orally Once a day Eliquis 2.5 MG Tablet as directed Orally Pantoprazole Sodium 40 MG Tablet Delayed Release 1 tablet 1/2 to 1 hour before morning meal Orally Once a day Probiotic Vitamin D3 Multivitamin Medication List reviewed and reconciled with the patientTaking Levothyroxine Sodium 75 MCG Capsule 1 capsule in the morning on an empty stomach Orally Once a day Taking Atorvastatin Calcium 80 MG Tablet 1 tablet Orally Once a day Taking Metoprolol Succinate 50 MG Capsule ER 24 Hour Sprinkle 1 capsule Orally Once a day Taking Nortriptyline HCl 50 MG Capsule 1 capsule at bedtime Orally Once a day Taking clonazePAM 0.5 MG Tablet 1 tablet Orally Once a day Taking Eliquis 2.5 MG Tablet as directed Orally Taking Pantoprazole Sodium 40 MG Tablet Delayed Release 1 tablet 1/2 to 1 hour before morning meal Orally Once a day Taking Probiotic Taking Vitamin D3 Taking Multivitamin Medication List reviewed and reconciled with the patient * Allergies:?PenicillinBactrim yes[Allergies Verified] Objective: * Vitals:?Ht: 5ft4in, Wt: 150, BMI: 25.74, Shoe size: 7-7.5, BP: 120/80 mm Hg, Ht- cm: 162.56 cm, Wt-k.04 kg. * Examination: ???Nails: ?NAILS are:?Elongated, overgrown, dystrophic, lytic, greater than 3mm thick, discolored and friable with crumbly malodorous subungual debris, with pain on palpation , Elongated, overgrown, dystrophic, lytic, greater than 3mm thick, discolored and friable with crumbly malodorous subungual debris, with pain on palpation,T1, T2? T3, T4,? T6, T7, T8, T9, ANJELICA-HORN appearance 10mm thickness or greater noted, T6.?Vascular: ?DP PULSES (B):? 0/4, B/L.?PT PULSES (B):? 0/4, B/L.?CAPILLARY FILL TIME:? delayed, all digits, B/L.?TROPHIC CONDITION-TEXTURE/ELASTICITY/TURGOR/HAIR GROWTH (B):? decreased, fragile, thin, shiny skin, with sparse to absent hair growth, B/L.?TEMPERTURE GRADIENT (C):? decreased, cool to cool, proximal to distal, B/L.?PIGMENTATION:?mottled, B/L.?EDEMA (C):?absent, B/L.?CLAUDICATION (C):?denies, B/L.?REST PAIN:?denies, B/L.?PARESTHESIA (C):?absent, B/L.?BURNING (C):?absent, B/L.?Dermatologic: ?SKIN FINDINGS:?Skin exam reveals Keratotic lesion(s) located at sub 1st MPJ b/l, medial IPJ TA, T5, plantar heels B/L.?Orthopedic: ?MUSCLE STRENGTH:?5/5 all groups in a symmetrical fashion, B/L.?Neurological: ?SENSORY:?Neurological exam reveals intact sensorium, pain sensation normal, vibration sensation intact, pinprick sensation is normal in the lower extremities, Pt denies, anesthesia, burning, paresthesia, tingling, B/L.?General Examination: ?GENERAL APPEARANCE:?Reveals a pleasant, alert, well nourished, well- developed, well hydrated individual, who demonstrates proper attention to hygiene/body habitus, and is in no acute distress, Pt serves as own historian for office visit today.?ORIENTED:?person, place, and time.? Assessment: * Assessment: 1.?Pain in right toe(s) - M7 9.674???2.?Onychomycosis - B35.1 (Primary)???3.?Pain in left toe(s) - M79.675???4.?Atherosclerosis of alturas artery of both lower extremities, with unspecified presence of clinical manifestation - I70.203???Notes :Q7(A), Q8(2B), Q9(1B,2C)???5.?Tinea unguium - B35.1??? Plan: * Treatment: * Procedures:?Debride Nail 6-10:?Nail debridement?Due to the clinical pathology outlined in the exam findings, performance of this nail treatment is medically necessary as its management by an unskilled/untrained nonprofessional would put this patients foot and overall health at risk. Therefore, debridement to affected nail(s), as described in exam (??T1, T2, T3, T4, T6, T7, T8, T9, ), was performed exclusively by the physician of record to reduce/remove overall nail length, girth, thickness, subungual debris, and necrotic tissue, by manual and/or electrical means through the use of a nail nipper and/or dremel-type cast shell grinder, to a more viable healthy nail plate or bed tissue 6-10 nails in total. Silver nitrate was used for any petechial bleeding as necessary. Definitive antifungal treatment options, both pharmaceutical and surgical, have been reviewed and discussed with the patient. The patient solely prefers the use of intermittent/as needed professional debridement services for their nail condition and understands the need for additional periodic treatments to maintain effectiveness in symptomatic relief - 07479.?Keratoma Treatment:?Parring or Cutting of Benign Hyperkeratotic Lesion(s)?(-57) More than 4 Lesions - Due to the at risk nature of the patients medical condition as documented in the exam findings, performance of this keratoderma treatment is medically necessary as its management by an unskilled/untrained nonprofessional would put this patients foot and overall health at risk. Therefore, the benign hyperkeratotic lesions, ( 6 ) in total, locations as stated and described in the exam (sub 1st MPJ b/l, medial IPJ TA, T5, plantar heels B/L), were pared, and/or cut utilizing a sterile 15 blade, tissue nippers, and/or power dremel instrumentation by the physician of record - 35577, Q8.? * Procedure Codes:?30817 TRIM SKIN LESIONS, OVER 4, Modifiers: XS , Q8 * Preventive Medicine:? ??Counseling:?Discussion:?-03: Office or other outpatient visit for the evaluation and management of a new patient, which required a medically appropriate history and/or examination and LOW level of DECISION MAKING for: 1 STABLE ACUTE UNCOMPLICATED PROBLEM, 2 OR MORE MINOR PROBLEMS, OR 1 STABLE CHRONIC PROBLEM, THAT POSE(S) A LOW RISK FOR MORBIDITY/MORTALITY. The visit on the day of the encounter encompassed interpreting the data and educating the patient as to the nature of their condition, treatment options available according to their individual PMH, meds, allergies, and overall health/living conditions, as well as any potential risks or complications that may occur from a failure to adhere to, and participate in, the recommended course of therapy. The discussion included a complete verbal, and/or written explanation of the examination results, any x-rays taken, the proposed diagnosis, and outline of the treatment plan. A schedule for future care needs was also explained. The patient verbalized an understanding of the instructions at this time and agreed to be an active participant in their treatment. If the patient should think of any questions or concerns after the visit, I have encouraged the patient to call the office.?Fungal Nail Counseling:?The patient was counseled on the diagnosis, potential etiologies (including, but not limited to, environmental factors, genetic, immune deficiency), and the multiple treatment options for Onychomycosis. We discussed the risks and benefits of each option from performing no treatment, to ultraviolet light shoe treatment, to laser nail treatment, to applying topical antifungals, to taking oral antifungal medication, to surgical removal of the involved nail(s) with or without performing a matricectomy, or any combination thereof. We discussed the advantages and disadvantages of each of possible treatment and importance for adherence to all the recommended therapies for optimum success. This includes the necessity for weekly emery board self nail home debridements, and control the nail and skin environment as much as possible by only using a fresh, dry pair of shoes/socks each day, as well as keeping the skin as dry as possible through the use of sprays/powders if necessary. The patient was instructed to discard the emery board after use to prevent reinfection of the involved nail(s). We discussed the mycological and visual clinical effectiveness of topical vs oral antifungal treatments as well as each ones potential side effects and/or any patient- specific medication interactions. We discussed the reasons behind the important requirement of regular liver function testing with oral antifungal therapy for safety. Patient questions regarding use, dosage, successful outcomes, blood tests, and possible pharmaceutical interactions were reviewed and the patient verbalized that all answers were clearly understoo, The patient defers any type of treatment at the present time beyond regular debridement.? * Follow Up:?6 Months * Images: * Sign off status: Completed true * Provider:?Usha Huynh DPM Date:?0 06/19/2024 Generated for Price mustafa/Jaydon/Jean on:?09/09/2024 05:22 PM EDT History and Physical Notes * HPI (History of Present Illness) Category Sub-Category Detail Notes Category Not es Painful Nails Aggravated by: shoegear causing difficulty standing/walking Course: worse Duration: several months Location: Both feet, all nails especially second toe Right foot Nature: aching, tender, disc olored, thick Treatments: none At Risk footcare Pt States Last PCP Visit: Date: 4 Examination Category Sub-Category Detail Notes Category Not es Neurological SENSORY: Neurological exa m reveals intact sensorium, pain sensation normal, vibration sensation intact, pinprick sensation is normal in the lower extremities, Pt denies, anesthesia, burning, paresthesia, tingling, B/L Dermatologic SKIN FINDINGS: Skin exam reveal s Keratotic lesion(s) located at sub 1st MPJ b/l, medial IPJ TA, T5, plantar heels B/L Orthopedic MUSCLE STRENGTH: 5/5 all groups in a symmetrical fashion, B/L General Examination GENERAL APPEARANCE: Reveals a pleasant, alert, well nourished, well-developed, well hydrated individual, who demonstrates proper attention to hygiene/body habitus, and is in no acute distress, Pt serves as own historian for office visit today ORIENTED: person, place, and t urmila Vascular DP PULSES (B): 0/4, B/L PT PULSES (B): 0/4, B/L CAPILLARY FILL TIME: delayed, all digits , B/L TEMPERTURE GRADIENT (C): decreased, cool to cool, proximal to distal, B/L TROPHIC CONDITION-TEXTURE/ELASTICITY/TURGOR/HAIR GROWTH (B): decreased, fragile, thin, shiny skin, wi th sparse to absent hair growth, B/L EDEMA (C): absent, B/L CLAUDICATION (C): denies, B/L REST PAIN: denies, B/L PIGMENTATION: mottled, B/L PARESTHESIA (C): absent, B/L BURNING (C): absent, B/L Nails NAILS are: Elongated, overg rown, dystrophic, lytic, greater than 3mm thick, discolored and friable with crumbly malodorous subungual debris, with pain on palpation , Elongated, overgrown, dystrophic, lytic, greater than 3mm thick, discolored and friable with crumbly malodorous subungual debris, with pain on palpation,T1, T2 T3, T4, T6, T7, T8, T9, ANJELICA-HORN appearance 10mm thickness or greater noted, T6
--- OUTSIDE RECORDS SUMMARY | 2024-09-09 17:23 | XMS_ITS ---
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 Generated for Baldoi moon/Jaydon/eTransmitting on:?09/09/2024 05:22 PM EDT
== END ==
LOC: HO.CARD 13:57
PROVIDERS: PCP Internal Medicine; Visit Provider Internal Medicine
DX: I35.0 Nonrheumatic aortic (valve) stenosis (principal)
CPT/HCPCS: 93306

== ENCOUNTER → 2024-09-09 14:00 | Outpatient (BNV) | payer MEDICARE, SELFPAY | PROVIDERS: PCP Internal Medicine; Visit Provider Internal Medicine Cardiovascular Disease | DX: I35.2 Nonrheumatic aortic (valve) stenosis with insufficiency (principal); I35.8 Other nonrheumatic aortic valve disorders; I34.81 Nonrheumatic mitral (valve) annulus calcification; I34.2 Nonrheumatic mitral (valve) stenosis | CPT/HCPCS: 93306 ==

== ENCOUNTER 2024-10-17 11:55 | Outpatient (AMB) | payer MEDICARE, SELFPAY ==
--- OUTSIDE RECORDS SUMMARY | 2024-10-17 12:47 | XMS_ITS | Patient Health Record ---
Author Organization [facility] Address [address] [place] [address] Care Team Providers Care Rug Receiving Clerk Name Role Phone CHERYLKAYAWEIROWAN Primary Care Provider Beulah Ghosh Unavailable [phone] Allergies Allergen (clinical drug ingredient) Drug/Non Drug Allergy documented on EMR Reaction Allergy Type Onset Date Status Penicillin Rash Drug Allergy Active Reason For Referral No Information Medications Medication SIG (Take, Route, Fr equency, Duration) Notes Start Date End Date Status KlonoPIN 0.5MG 1 ORAL 3-4 TIMES A DAY for -2 [facility] 01/17 Active Pamelor 50MG 1 ORAL at bedtime for -3 [facility] 01/17/2013 Active Vitamin D3 1000 IU ORAL daily for -3 [facility] 01/17/2013 Active Simvastatin 40 MG 1 tablet in the even ing Orally Once a day Active Synthroid 0.05 mg 1 tablet Orally Once a day Active Baby Aspirin Active Bystolic 10 MG 1 tablet Orally Once a day Active Benicar 10MG 1 ORAL daily for -3 [facility] 01/17/2013 Active Social History Tobacco [...] Status Risk Notes Problem Postmenopausal atrophic vaginitis (88047085) Postmenopausal atrophic vaginitis (N95.2) Active confirmed Problem Age-related osteoporosis (877787859) Age-related osteoporosis without current pathological fracture (M81.0) Active confirmed Problem Essential hypertension (26899688) Essential (primary) hypertension (I10) Active confirmed Problem Hyperlipidemia (61066119) Hyperlipidemia, unspecified (E78.5) Active confirmed Problem Anxiety disorder (955667638) Anxiety disorder, unspecified (F41.9) Active confirmed Problem Functional urinary incontinence (559148046) Functional urinary incontinence (R39.81) Active confirmed Problem Menopausal symptom (76215189) Symptomatic menopausal or female climacteric states (627.2) Active confirmed Major Problem Osteoporosis (73294862) Unspecified osteoporosis (733.00) Active confirmed Diag Plan Of Treatment Pending Test Test Name Order Date X ray : Pelvis 04/09/2017 BONE DENSITY EXTREMITY 07/02/2019 DEXA 07/21/2014 MAMMOGRAM, SCREENING 07/21/2014 MAMMOGRAM, SCREENING 05/15/2017 MAMMOGRAM, SCREENING 07/02/2019 Urinalysis 07/21/2014 Ultrasound : Pelvic 11/22/2016 BONE DENSITY 05/15/2017 BONE DENSITY 05/16/2018 MM Digital Mammo Screening 07/02/2019 MM Digital Mammo Screening 05/16/2018 MM Digital Mammo Screening 05/15/2017 Insurance Providers Payer Name Payer Address Payer Phone Subscriber Number Group Number Insured Name Patient Relationship to Insured Coverage Start Date Coverage End Date MEDICARE [address] OBDULIA SHAIKH [id number] JHONNY ADAM Self - patient is the insured MEDEX [address] [place] [address] [id number] JHONNY ADAM Self - patient is [...]
--- OUTSIDE RECORDS SUMMARY | 2024-10-17 12:48 | XMS_ITS ---
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 Generated for Price mustafa/Jaydon/eTransmitting on:?10/17/2024 12:47 PM EDT
--- OUTSIDE RECORDS SUMMARY | 2024-10-17 12:48 | XMS_ITS ---
Author Organization [facility] Address [address] [place] [address] Care Team Providers Care Director Of Consumer Affairs Name Role Phone Kelly, Kartik Primary Care Provider Usha Huynh Unavailable [phone] Allergies Allergen (clinical drug ingredient) Drug/Non Drug [...] Problem Status W/U Status Risk Notes Problem Bilateral atherosclerosis of arteries of lower limbs (disorder) (34118015560790846 ) Atherosclerosis of [place] artery of both lower extremities, with unspecified presence of clinical manifestation (I70.203) Active confirmed Q7(A), Q8(2B), Q9(1B,2 C) Vital Signs Height 5ft4in in 06/19/2024 Weight 150 lbs 06/19/2024 BMI 25.74 kg/m2 06/19/2024 Blood pressure systolic 120 mm Hg 06/19/19 Blood pressure diastolic 80 mm Hg 025 Procedures Procedure Date Ordered Date Performed Result Body Sit e 81502-WKVF SKIN LESIONS, OVER 4 06/19/2024 N/A Encounters Encounter Location Date Provider Diagnosis [facility] [place] [address] [place] [address] 06/19/2024 Usha Huynh Pain in right toe(s) M79.674 ; Onychomycosis B35.1 ; Pain in left toe(s) M79.675 ; Atherosclerosis of [place] artery of both lower extremities, with unspecified presence of clinical manifestation I70.203 and Tinea unguium B35.1 Assessments Encounter Date Diagnosis (ICD Code) Assessment Notes Treatment Notes Treatment Clinical Notes Section Notes 06/19/2024 Pain in right toe(s) (ICD-10 - M79.674) 06/19/2024 Onychomycosis (ICD-10 - B35.1) 06/19/2024 Pain in left toe(s) (ICD-10 - M79.675) 06/19/2024 Atherosclerosis of [place] artery of both lower extremities, with unspecified presence of clinical manifestation (ICD-10 - I70.203) Q7(A), Q8(2B), Q9(1B,2C) 06/19/2024 Tinea unguium (ICD-10 - B35.1) Plan Of Treatment Pending Test Test Name Order Date 67483-BQKE SKIN LESIONS, OVER 4 06/19/19 25 Next Appt Details Follow Up: 6 Months, Reason: Provider Name:Usha deleon, 12/15/2024 02:30:00 PM, [address] [place], [address], Procedure Notes * Category Sub-Category Detail Notes [...] use of a nail nipper and/or dremel-type thread grinder tool, to a more viable healthy nail plate [...] to maintain effectiveness in symptomatic relief - 59609 Keratoma Treatment Parring or Cutting o f [...] instrumentation by the physician of record - 88497, Q8 Progress Notes * Denise SHARP MDOB:1939 (84 yo F)Acc No.[id number]:06/19/2024 Progress Notes Patient:?Denise SHARP Provider:?Usha Huynh DPM :1940???Age:84 Y???Sex:Female D ate:06/19/2024 Address:[address] [place] [address] Rd, Xiomara pfeiffer [facility] Pcp:Jerman Mendoza Subjective: * Chief Complaints: * [...] (Primary)???3.?Pain in left toe(s) - M79.675???4.?Atherosclerosis of [place] artery of both lower extremities, with unspecified [...] use of a nail nipper and/or dremel-type thread grinder tool, to a more viable healthy nail plate [...] to maintain effectiveness in symptomatic relief - 03851.?Keratoma Treatment:?Parring or Cutting of Benign Hyperkeratotic Lesion(s)?(-57) [...] instrumentation by the physician of record - 24271, Q8.? * Procedure Codes:?92164 TRIM SKIN LESIONS, OVER 4, Modifiers: XS [...] DPM Date:?0 06/19/2024 Generated for Price mustafa/Jaydon/Jean on:?10/17/2024 12:47 PM EDT History and Physical Notes * [...]
--- OUTSIDE RECORDS SUMMARY | 2024-10-17 12:48 | XMS_ITS | Clinical Summary ---
Author Organization [facility] [employer] [facility] Address [address] [place] [address] Phone Care Team Providers Care Peer Tutor Name Role Phone Jerman Mendoza MD Primary Care Provider [phone] Allergies Active Allergy Reactions Criticality Noted Date Comments Penicillins 09/29/2024 Medications apixaban (ELIQUIS) 2.5 mg tablet Take 1 tablet (2.5 mg total) by mouth 2 (two) times a day. Active clonazePAM (KlonoPIN) 0.25 mg disintegrating tablet Dissolve 1 tablet (0.25 mg total) on top of the tongue 2 (two) times a day if needed for anxiety. Max Daily Amount: 0.5 mg Active levothyroxine (SYNTHROID, LEVOTHROID) 75 mcg tablet Take by mouth 1 (one) time each day before breakfast. Active pantoprazole (PROTONIX) 40 mg EC tablet Take 1 tablet (40 mg total) by mouth 1 (one) time each day before breakfast. Do not crush, chew, or split. Active metoprolol succinate (TOPROL-XL) 50 mg 24 hr tablet Take 1 tablet (50 mg total) by mouth 1 (one) time each day. Do not crush or chew. Active renal multivitamin (DIALYVITE-800 PLUS D) chewable tablet Chew 1 tablet 1 (one) time each day. Active multivitamin with minerals tablet Take 1 tablet by mouth 1 (one) time each day. Active saccharomyces boulardii (FLORASTOR) 250 mg capsule Take 1 capsule (250 mg total) by mouth 2 (two) times a day. Active atorvastatin (LIPITOR) 80 mg tablet Take 1 tablet (80 mg total) by mouth at bedtime. Active nortriptyline (PAMELOR) 50 mg capsule Take 1 capsule (50 mg total) by mouth at bedtime. Active Active Problems Problem Noted Date Diagnosed Date Nonrheumatic aortic valve stenosis 09/29/2024 Assessment & Plan (09/29/2024 4:19 PM EDT): Critical aortic stenosis with symptoms of exertional intolerance and lightheadedness. Coexisting with aortic stenosis is evidence of left main CAD which is IFR positive. As it has been nearly 2 years since we initially evaluated her the risk of interventions for either of these conditions has increased particularly in view of her now low ejection fraction and worsening aortic stenosis. I recommended a diagnostic cardiac catheterization to define the extent of her CAD and to attempt to objectively determine if her worsening ejection fraction is related to CAD or aortic stenosis. While is possible she may still be a candidate for open heart surgery she has been extremely reluctant in the past and 2 years have passed. I am not sure at this point if she is a candidate for open heart surgery. In regards to percutaneous options, she has a distal left main stenosis which is not critical but does appear to be calcified and with reduced ejection fraction and critical aortic stenosis, the risk of PCI has increased compared to previous evaluation. As above she is concerned regarding increased risk of any kind. If her CAD is entirely stable, it is possible that we would offer a TAVR to treat her aortic stenosis and medical management for CAD although I do not have enough information to make this determination at present. She is going to converse with her family and if they want to move forward with a diagnostic cardiac catheterization we will make arrangements for this to be performed at [facility] Encounters Date Type Department Care Team Description 09/29/2024 2:30 PM EDT Office Visit [facility] [address] [place] [address] Kimo Norris MD Nonrheumatic aortic (valve) stenosis (Primary Dx); Nonrheumatic aortic valve stenosis from Last 3 Months Medical History Medical History Date Comments Generalized anxiety disorder DX: Generalized anxiety disorder Family History Relation Name Status Comments Father Mother Social History Tobacco Use Types Packs/Day Years Used Date Smoking Tobacco: Never Smokeless Tobacco: Never Tobacco Cessation:Counseling Given: Not Answered Alcohol Use Standard Drinks/Week Comments Never 0 (1 standard drink = 0.6 oz pur e alcohol) Comments Unknown Sex and Gender Information Value Date Recorded Sex Assigned at Not on file Legal Sex Female 6:08 PM EST Gender Identity Not on file Sexual Orientation Not on file Obstetrics History Last Filed Vital Signs Vital Sign Reading Time Taken Comments Blood Pressure 112/76 09/29/2024 2:46 PM EDT Pulse 90 09/29/2024 2:46 PM EDT Temperature - - Respiratory Rate - - Oxygen Saturation 93% 09/29/2024 2:46 PM EDT Inhaled Oxygen Concentration - - Weight 70.3 kg (155 lb) 09/29/2024 2:46 PM EDT Height 157.5 cm (5' 2 ) 09/29/2024 2:46 PM EDT Body Mass Index 28.35 09/29/2024 2:46 PM EDT Plan of Treatment Health Maintenance Due Date Last Done Comments DTaP,Tdap,and Td Vaccines (1 - Tdap) 1960 Pneumococcal Vaccine: 50+ Years (1 of 1 - PCV) 1991 Zoster Vaccines (1 of 2) 1991 RSV Immunization Adult Patients (1 - 1-dose 75+ series) 2016 Cholesterol Screening (Lipid Panel) 05/20/2022 Depression Screening 05/20/2022 Falls Risk Assessment 05/20/2022 Osteoporosis Screening (Bone Density Screening) 05/20/2022 Social Influencers of Health Screening 05/20/2022 Hypertension/CHF/CAD Annual BMP Blood Test 06/02/2022 Medicare Annual Wellness Visit 10/27/2023 10/26/2022 COVID-19 Vaccine ( - 2023-2 5 season) 2024 05/01/2021, 08/31/2020, 08/08/2020 Influenza Vaccine (Season Ended) 2025 HIB Vaccines Aged Out No longer eligi ble based on patient's age to complete this topic HPV Vaccines Aged Out No longer eligi ble based on patient's age to complete this topic Hepatitis A Vaccines Aged Out No long er eligible based on patient's age to complete this topic Hepatitis B Vaccines Aged Out No long er eligible based on patient's age to complete this topic IPV Vaccines Aged Out No longer eligi ble based on patient's age to complete this topic MMR Vaccines Aged Out No longer eligi ble based on patient's age to complete this topic Meningococcal ACWY Vaccine Aged Out N o longer eligible based on patient's age to complete this topic Meningococcal B Vaccine Aged Out No l onger eligible based on patient's age to complete this topic RSV Immunization Patients Under 20 months Aged Out No longer eligible b ased on patient's age to complete this topic Varicella Vaccines Aged Out No longer eligible based on patient's age to complete this topic Procedures Procedure Name Priority Date/Time Associated Diagnosis Comments ECG 12-LEAD Routine 09/29/2024 2:53 PM EDT Nonrheumatic aortic (valve) stenosis from Last 3 Months Results * ECG 12 lead (09/29/2024 2:53 PM EDT) Ventricular Rate ECG 90 BPM GEMUSE Atrial Rate 90 BPM GEMUSE P-R Interval 156 ms GEMUSE QRS Duration 98 ms GEMUSE Q-T Interval 400 ms GEMUSE QTc 489 ms GEMUSE P Wave Jarrell 53 degrees GEMUSE R Jarrell 46 degrees GEMUSE T Jarrell 38 degrees GEMUSE ECG Interpretation Normal sinus rhythm Moderate voltage criteria for LVH, may be normal variant Nonspecific ST abnormality Abnormal ECG No previous ECGs available Confirmed by KIMO NORRIS ([id number]) on 09/29/2024 3:53:16 PM GEMUSE 09/29/2024 2:53 PM EDT 09/29/2024 3:53 PM EDT us Kimo Norris MD ECG ORDERABLES Final Result GEMUSE from Last 3 Months Insurance [employer] MEDICARE Care Teams Peer Tutor Relationship Specialty Start Date End Date Jerman Mendoza MD [facility] [address] [place] [address] [address] [place] [address] PCP - General Internal Medicine 11/23/21
--- OUTSIDE RECORDS SUMMARY | 2024-10-17 12:48 | XMS_ITS | Patient Health Record ---
Author Organization [facility] Address [address] [place] [address] Care Team Providers Care Sr. Manager Corporate Communications Name Role Phone Jerman Mendoza Primary Care Provider Usha Huynh Unavailable [phone] Allergies Allergen (clinical drug ingredient) Drug/Non Drug [...] atherosclerosis of arteries of lower limbs (disorder) (71251523426166958 ) Atherosclerosis of [place] artery of both lower extremities, with unspecified presence of clinical manifestation (I70.203) Active confirmed Q7(A), Q8(2B), Q9(1B,2 C) Vital Signs Blood pressure diastolic 80 mm Hg 06/19/2024 Height 5ft4in in 06/19/2024 Blood pressure systolic 120 mm Hg 06/19/2024 Weight 150 lbs 06/19/2024 BMI 25.74 kg/m2 06/19/2024 Procedures Procedure Date Ordered Date Performed Result Body Sit e 96598-ALDB SKIN LESIONS, OVER 4 06/19/2024 N/A Encounters Encounter Location Date Provider Diagnosis [facility] [address] 06/19/2024 Usha Huynh Pain in right toe(s) M79.674 ; Onychomycosis B35.1 ; Pain in left toe(s) M79.675 ; Atherosclerosis of [place] artery of both lower extremities, with unspecified presence of clinical manifestation I70.203 and Tinea unguium B35.[address] [facility] [address] 05/13/2024 Usha Huynh Assessments Encounter Date Diagnosis (ICD Code) Assessment Notes Treatment Notes Treatment Clinical Notes Section Notes 06/19/2024 Pain in right toe(s) (ICD-10 - M79.674) 06/19/2024 Onychomycosis (ICD-10 - B35.1) 06/19/2024 Pain in left toe(s) (ICD-10 - M79.675) 06/19/2024 Atherosclerosis of [place] artery of both lower extremities, with unspecified presence of clinical manifestation (ICD-10 - I70.203) Q7(A), Q8(2B), Q9(1B,2C) 06/19/2024 Tinea unguium (ICD-10 - B35.1) Plan Of Treatment Pending Test Test Name Order Date 41660-NRYD SKIN LESIONS, OVER 4 06/19/19 Next Appt Details Provider Name:Usha deleon, 12/15/2024 02:30:00 PM, [address] [place] [address] [place], [address], Insurance Providers Payer Name Payer Address Payer Phone Subscriber Number Group Number Insured Name Patient Relationship to Insured Coverage Start Date Coverage End Date Medicare National [employer] [address] [place] [address] [id number] Denise Sharp Self - patient is the insured 6 [employer] [facility] [address] [place] [address] [id number] Denise Sharp Self - patient is the insured Medical (General) History Medical History History ICD Code Anxiety CAD (Cholesterol) Dementia Depression Gall bladder problems Heart disease High Blood Pressure thyroid Stenosis Heart valve conditions/replacement Transfusions susceptible C-diff Surgical History Surgery Date(Month/Year) Gall bladder removal - C diff infection: drain 06/18/23 appendectomy ulcer cautherization 09/08
--- NOTE | 2024-10-17 13:31 | MHC.OFFWIV ---
Intake Vital Signs 10/17/24 13:33 Weight 157 lb BP 110/76 Blood Pressure Location Rt brachial Position Sitting Pulse 86 Pulse Source Pulse Oximeter Pulse Oximetry (%) 98 Oxygen Delivery Method Room Air Intake Visit Reasons: EP-ankles and knee swollen Intake Note: Patient here for ankles and knee swelling that started 2 days ago. Patient Tobacco Use Status: Never used Tobacco Allergies penicillin V Allergy (Unknown, Verified 10/17/24 13:35) Unknown Penicillins Allergy (Unknown, Verified 10/17/24 13:35) Unknown Eggs/Apples/Oats Allergy (Unknown, Uncoded 10/17/24 13:35) stomach ache Do you need a note to return to daycare/school/sports/work: No HPI HPI Comments History of Present Illness Details History of Present Illness - The patient is an 84-year-old female with a past med hx of severe aortic stenosis, coronary artery disease on eliquis, hypertension, and hyperlipidemia, EF 45% presenting with her son with new onset bilateral lower extremity swelling. - She noticed ankle swelling in both legs accompanied by right knee pain and swelling starting a few days prior to the visit. - The patient reports no previous episodes of swelling and does not have a history of using diuretics. - denies shortness of breath or other respiratory symptoms. - she does not use compression stockings. - Denies injury to the right knee, has not used ice or any other medications for the pain. Physical Exam General: Cooperative, healthy appearing, comfortable, no acute distress and well developed Orientation: Patient oriented x3 Limitations: No limitations Head: Normal to inspection Ears: Hearing grossly normal bilaterally Nose: Normal External nose present Face and sinus: Normal facial exam Eyes: Appearance normal, both eyes and all related structures Neck: Normal visual inspection and Yes full ROM Respiratory: Normal respiratory effort and able to speak in complete sentences. Clear to auscultation bilaterally Cardiovascular: Regular rate and rhythm. murmur noted Skin: No rashes or lesions noted Neuro: Patient oriented x3 Extremities: non pitting 1+ edema in BL LE. Right knee: non TTP, no joint laxity, no skin changes, normal ROM. RLE is Normal to inspection otherwise. [facility] Medical History Cognitive change Gallbladder calculus Left main coronary artery disease Stenosis of aortic valve C. difficile colitis Pancolitis MDD (major depressive disorder) Cholecystitis UGIB (upper gastrointestinal bleed) Dementia Nonrheumatic aortic (valve) stenosis Generalized anxiety disorder Hypercholesterolemia Surgical History History of esophagogastroduodenoscopy (EGD) History of appendectomy History of colonoscopy Family History Mother No problems noted. Father No problems noted. Social History Household Members: None Housing: House Do you presently have visiting nurse or other home services: No Alcohol intake: never Patient Tobacco Use Status: Never used Tobacco e-Cigarette/Vaping Use: Never Used Second Hand Smoke Exposure: No service: No Current occupational status: retired Cognitive needs: No Hearing needs: No Vision needs: Yes (glasses) Review of Systems Const All systems reviewed & are unremarkable except as noted in HPI and below Physical Exam Vital Signs: Last Vital Signs Pulse 86 10/17/24 13:33 BP 110/76 10/17/24 13:33 Pulse Ox 98 10/17/24 13:33 Oxygen Delivery Method Room Air 10/17/24 13:33 Assessment & Plan Assessment & Plan (1) Bilateral edema of lower extremity: Code(s): R60.0 - Localized edema Plan: A careful approach is taken considering the patient's complex cardiac condition. The use of compression stockings is recommended to alleviate bilateral ankle swelling, complemented by leg elevation practices. Administering Lasix is considered, contingent upon response from her PCP, Dr. Mendoza, with precautionary blood pressure monitoring due to the potential risk of hypotension. I have messaged Dr. Hancock Patient was informed and verbally consented to the use of an ambient scribe for clinic note documentation during this visit. (2) Right knee pain: Code(s): M25.561 - Pain in right knee Qualifiers: Chronicity: acute Qualified Code(s): M25.561 - Pain in right knee Plan: Given the evidence of knee inflammation likely linked to bursitis, the application of ice is recommended. Patient is on Eliquis therefore she can not take NSAIDs. Recommended Tylenol, if needed. Coding Level of Care Code Est Pt Level 4 (47042) Diagnoses Bilateral edema of lower extremity R60.0 Acute pain of right knee M25.561 Chronicity: acute
[2024-10-17 13:33] VITALS: BP 110/76; PULSE 86; O2SAT 98
== END 2024-10-17 14:07 | disposition home or self-care (01) ==
PROVIDERS: PCP Internal Medicine; Visit Provider Physician Assistant
DX: R60.0 Localized edema (principal); M25.561 Pain in right knee

== ENCOUNTER → 2024-10-17 11:55 | Outpatient (BNVA) | payer MEDICARE, SELFPAY | PROVIDERS: PCP Internal Medicine; Visit Provider Physician Assistant | DX: R60.0 Localized edema (principal); M25.561 Pain in right knee | CPT/HCPCS: 99212 ==

== ENCOUNTER 2025-01-08 10:24 | Outpatient (AMB) | payer MEDICARE, SELFPAY ==
--- OUTSIDE RECORDS SUMMARY | 2024-12-15 09:30 | XMS_ITS ---
Author Organization [facility] Address [address] [place] [address] Care Team Providers Care Manager Video Name Role Phone Jerman Mendoza Primary Care Provider Usha Huynh [phone] REASON FOR VISIT X CHG Encounters Encounter Location Date Provider Diagnosis [address] [address] 12/15/2024 Usha Huynh Plan Of Treatment Next Appt Details Provider Name:Usha deleon, 05/20/2025 02:45:00 PM, [address] [place], [address], Progress Notes * Denise SHARP MDOB:1939 (84 yo F)Acc No.[id number]:12/15/2024 Progress Note Patient: Sherry Denise BARROS Provider: aMr Huynh DPM :1940 A ge:84 Y S ex:Female Date:12/15/2024 Address:[address] [place] [address] [phone] Pcp:Jerman Mendoza Subjective: * Chief Complaints: * 1 . X CHG. * Medical History: Objective: * Vitals: Assessment: Plan: * Treatment: * Images: * The named appointment provid er may or may not be the originator of this progress note, and it is not deemed complete until electronically signed by the appointment provider. Sign off status: Pending * Provider: Mar Huynh DPM Date: 0 12/15/2024 Generated for Price Mohan/Jean on: 0 01/08/2025 11:10 AM EDT
--- NOTE | 2025-01-08 10:30 | AM.OFFVISMDC ---
Intake Vital Signs 01/08/25 10:32 Height 5 ft 2 in Weight 151 lb 4 oz BMI 27.7 BP 130/82 Blood Pressure Location Lt brachial Position Sitting Pulse 102 H Pulse Source Pulse Oximeter Temp 97.1 F Temp Source Temporal Artery Scan Pulse Oximetry (%) 94 Oxygen Delivery Method Room Air Intake Visit Reasons: LISA G0439 Intake Note: Patient is here for an Annual Wellness Visit. Account Manager Relief Required: No Land Management Supervisor: Land Management Supervisor Present and Land Management Supervisor offered & declined Accompanied by: Son Allergies penicillin V Allergy (Unknown, Verified 01/22/25 16:03) Unknown Penicillins Allergy (Unknown, Verified 01/22/25 16:03) Unknown Eggs/Apples/Oats Allergy (Unknown, Uncoded 01/22/25 16:03) stomach ache HPI SWV G0439 HPI Details Patient presents to the office requesting an annual wellness exam. Accompanied by her son [facility] Medical History Severe aortic stenosis Cognitive change Gallbladder calculus Left main coronary artery disease Stenosis of aortic valve C. difficile colitis Pancolitis MDD (major depressive disorder) Cholecystitis UGIB (upper gastrointestinal bleed) Dementia Nonrheumatic aortic (valve) stenosis Generalized anxiety disorder Hypercholesterolemia Surgical History History of esophagogastroduodenoscopy (EGD) History of appendectomy History of colonoscopy Family History Mother No problems noted. Father No problems noted. Social History Household Members: None Housing: House Do you presently have visiting nurse or other home services: No Alcohol intake: never Patient Tobacco Use Status: Never used Tobacco e-Cigarette/Vaping Use: Never Used Second Hand Smoke Exposure: No Advance Directives: No Advance Directives Information Provided: No service: No Current occupational status: retired Cognitive needs: No Hearing needs: No Vision needs: Yes (glasses) Questionnaire Medicare Wellness Checkup What is your age?: 81 or older What gender do you identify with?: female During the past 4 weeks, how much have you been bothered by emotional problems such as feeling anxious, depressed, irritable, sad or downhearted, and blue?: moderately During the past 4 weeks, has your physical & emotional health limited your social activities with family, friends, neighbors, or groups?: slightly During the past 4 weeks, how much bodily pain have you generally had?: very mild pain During the past 4 weeks, was someone available to help you if you needed & wanted help?: yes, as much as I wanted During the past 4 weeks, what was the hardest physical activity you could do for at least 2 minutes?: moderate Can you get to places out of walking distance without help? (For eg., can you travel alone on buses, taxis or drive your car?): No Can you go shopping for groceries or clothes without someone's help?: No Can you prepare your own meals?: No Can you do your housework without help?: No Because of any health problems, do you need the help of another person with your personal care needs such as eating, bathing, dressing or getting around the house?: No Can you handle your own money without help?: No During the past 4 weeks, how would you rate your health in general?: fair During the past 4 weeks how have things been going for you?: good & bad parts about equal Are you having difficulties driving your car?: not applicable, I don't use a car Do you always fasten your seat belt when you are in a car?: yes, sometimes During past 4 weeks, have you been bothered by the following: never: Sexual problems?, Trouble eating well?, Teeth or denture problems? and Tiredness or fatigue? and seldom: Falling or dizzy when standing up and Problems using the telephone? Have you fallen 2 or more times in the past year?: No Are you afraid of falling?: No Are you a smoker?: no During the past 4 weeks, how many drinks of wine, beer, or other alcoholic beverages did you have?: no alcohol at all Do you exercise for about 20 minutes 3 or more times a week?: no, I usually do not exercise this much Have you been given information to help with the following?: yes: Keeping track of your medications? and no: Hazards in your house that might hurt you? How often do you have trouble taking medicines the way you have been told to take them?: I always take medicine as prescribed How confident are you that you can control & manage most of your health problems?: somewhat confident What is your race?: White Mini Mental State Exam (MMSE) Orientation What is the (year) (season) (date) (day) (month)?: year (Unable to recall date, day or month) Recall Ask patient to repeat the 3 items from question #3.: object 1 (Unable to recall any objects) Score Score: 2 Activity of Daily Living Bathing - sponge bath, tub bath or shower: receives help in bathing more than one body part (or not bathed) Dressing - getting clothes from closets & drawers, including inner/outer garments & fasteners.: gets clothes & gets completely dressed without help Toileting - going to the 'toilet room' for urine/bowel elimination & cleaning self/arranging clothes: receives help going to toilet room, cleaning self or arranging clothes Transfer: moves in & out of bed and chair without help (may use support object) Continence: controls urination/bowel movements completely by self Feeding: feeds self without help Total Score: 1 Information obtained from: informant Using telephone: needs assistance Traveling: needs assistance Shopping: needs assistance Preparing meals: needs assistance Housework: needs assistance Taking medicine: needs assistance Managing money: needs assistance PHQ-9 Over the last 2 weeks, how often have you been bothered by any of the following problems? 1. Little interest or pleasure in doing things: more than half the days 2. Feeling down, depressed, or hopeless: more than half the days 3. Trouble falling or staying asleep, or sleeping too much: more than half the days 4. Feeling tired or having little energy: not at all 5. Poor appetite or overeating: not at all 6. Feeling bad about yourself - or that you are a failure or have let yourself or your family down: more than half the days 7. Trouble concentrating on things, such as reading the newspaper or watching television: nearly every day 8. Moving or speaking so slowly that other people could have noticed. Or the opposite - being so fidgety or restless that you have been moving around a lot more than usual: more than half the days 9. Thoughts that you would be better off or of hurting yourself in some way: more than half the days Total score: 15 Depression Screening Interpretation: Positive Depression Screening Done: Yes Source: Developed by Drs. Wes Lenz, Hung Grant and colleagues, with an educational vicenta from [employer]. Thrive Questionnaire Date Thrive assessed: 01/08/25 I am a: Patient What is your living situation today?: I have a steady place to live Within the past 12 months, did the food you bought not last and you didn't have the money to get more?: Never true Within the past 12 months, did you worry whether your food would run out before you got money to buy more?: Never true Do you have trouble paying for medicines?: No Do you have trouble getting transportation to medical appointments?: No Do you have trouble paying your heating and electricity bill?: No Do you have trouble taking care of your child, family member or friend?: No Do you have trouble with day-to-day activities such as bathing, preparing meals, shopping, managing finances, etc.?: No Are you currently unemployed and looking for a job?: No Are you interested in more education?: No Please select the resources that you would like help with: None Currently or been in a relationship where the following occur: No concerns reported and I choose not to answer THRIVE Score: 0 SONIDO-7 AMB Questionnaire SONIDO-7 Date SONIDO - 7 assessed: 01/08/25 Feeling nervous, anxious, or on edge: 0 = Not at all Not being able to stop or control worryin = Not at all Worrying too much about different things: 0 = Not at all Trouble relaxin = Not at all Being so restless that it is hard to sit still: 0 = Not at all Becoming easily annoyed or irritable: 0 = Not at all Feeling afraid as if something awful might happen: 0 = Not at all Total SONIDO-7 score (0-4 normal; 5-9 mild; 10-14 moderate; 15-21 severe): 0 Source: Developed by Drs. Wes Lenz, Hung Grant and colleagues, with an educational vicenta from [employer]. AUDIT C Alcohol Use Questionnaire (AUDIT-C) 1. How often do you have a drink containing alcohol?: Never Total Score: 0 Physical Exam Vital Signs: Last Vital Signs Temp 97.1 F 01/08/25 10:32 Pulse 102 H 01/08/25 10:32 BP 130/82 01/08/25 10:32 Pulse Ox 94 01/08/25 10:32 Oxygen Delivery Method Room Air 01/08/25 10:32 BMI result Body Mass Index 27.7 Balance: Normal Romberg: Negative Tandem Walk: Unable to Walk and Turn: Able to Rise from sit to stand: Unable to Hearing Whisper test: Not tested Assessment & Plan Assessment & Plan (1) Annual physical exam: Code(s): Z00.00 - Encounter for general adult medical examination without abnormal findings Plan: [place] of care discussed, Individualized screening discussed, Quality Reporting (2019) Depression/Bipolar (159/160/161/177) PHQ-9: Total score: 15 Coding Level of Care Code Medicare Subsequent (G0439) Diagnoses Annual physical exam Z00.00
[2025-01-08 10:32] VITALS: BP 130/82; PULSE 102; TEMP 36.2; O2SAT 94; BMI 27.7
--- OUTSIDE RECORDS SUMMARY | 2025-01-08 11:10 | XMS_ITS | Patient Health Record ---
Author Organization [facility] Address [address] [place] [address] Care Team Providers Care Chief Engineer Name Role Phone Izabella (RETIRED) Dariusz STOVER Primary Care Provide Wes Guadalupe Unavailable [phone] Allergies Allergen (clinical drug ingredient) Drug/Non Drug Allergy documented on EMR Reaction Allergy Type Onset Date Status Penicillin Unknown Drug Allergy Active EGGS (uncoded) Unknown Allergy Activ e Reason For Referral No Information Medications Medication SIG (Take, Route, Fr equency, Duration) Notes Start Date End Date Status Simvastatin Active Aspir-81 Active Synthroid Active Benicar Active KlonoPIN Active Vitamin D Active Vitamin D3 1000 UNIT Orally Active Vitamin C Active Problems Problem Type SNOMED Code ICD Code Onset Dates Problem Status W/U Status Risk Notes Problem 746349829 Encounter for screening for malignant neoplasm of colon (Z12.11) Active confirmed Problem 562080959 History of adenomatous polyp of colon (Z86.010) Active confirmed Problem Screening for malignant neoplasm of rectum (402604179) Encounter for screening for malignant neoplasm of rectum (Z12.12) Active confirmed Problem 03168912 Constipation, unspecified constipation type (K59.00) Active confirmed Plan Of Treatment Future Test Test Name Order Date COLONOSCOPY 08/17/2015 Insurance Providers Payer Name Payer Address Payer Phone Subscriber Number Group Number Insured Name Patient Relationship to Insured Coverage Start Date Coverage End Date [employer] PREFERRED [address] [place] [phone] [id number] JHONNY ADAM Self - patient is the insured Medical (General) History Medical History History ICD Code Hypertension Anxiety Irritable bowel syndrome Denies PA,DM,CVA,Lung disease,renal dise ase Hypothyroidism Hyperlipidemia Colonoscopy 05/2009--1 dov akash adenoma removed, sigmoid diverticulosis and internal hemorrhoids
--- OUTSIDE RECORDS SUMMARY | 2025-01-08 11:10 | XMS_ITS | Clinical Summary ---
Author Organization [facility] Address [address] [place] [address] Phone Care Team Providers Care Network Operations Lead Name Role Phone Jerman Mendoza MD Primary Care Provid er Allergies Active Allergy Reactions Criticality Noted Date Comments Eggshell Membrane 07/20/2023 Penicillins Rash Low 02/28/2020 Medications KLONOPIN 0.5 mg tablet Take 0.5 mg by mouth 2 (two) times a day. 12/12/2019 Active levothyroxine (SYNTHROID, LEVOTHROID) 75 MCG tablet Take 75 mcg by mouth daily. 12/03/2019 Active BYSTOLIC 10 mg tablet 12/29/2019 Active BENICAR HCT 40-12.5 mg per tablet 12/16/2019 Active nortriptyline (PAMELOR) 50 MG capsule 01/21/2020 Active aspirin 81 MG EC tablet 1 tablet DAILY (route: oral) 06/22/2023 Active atorvastatin (LIPITOR) 80 MG tablet Take 80 mg by mouth nightly at bedtime. 07/25/2023 Active carvedilol (COREG) 25 MG tablet Take 1 tablet by mouth 2 (two) times a day. 06/20/2023 Active pantoprazole (PROTONIX) 40 MG tablet Take 1 tablet by mouth 2 (two) times a day. 07/25/2023 Active chlorhexidine (PERIDEX) 0.12 % solution Swish and spit 15 mL 2 (two) times a day. For 30 sec.do not swallow. 473 mL 08/12/2023 Active metoprolol tartrate (LOPRESSOR) 25 MG tablet Take 25 mg by mouth. 07/25/2023 Active simvastatin (ZOCOR) 40 MG tablet 1 tablet in the evening Orally Once a day Active ELIQUIS 2.5 mg Take 2.5 mg by mouth 2 (two) times a day. Active metoprolol succinate (TOPROL-XL) 50 MG 24 hr tablet Take 1 tablet by mouth every morning. 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 Hyperlipidemia 02/20/2024 Gastrointestinal hemorrhage, unspecified 024 Anemia 07/25/2023 Anxiety disorder 07/20/2023 Atherosclerotic heart diseas e of [place] coronary artery without angina pectoris 07/20/2023 Essential hypertension 07/20/2023 Hypothyroidism 07/20/2023 Muscle wasting and atrophy, not elsewhere classified, multiple sites 07/20/2023 Nonrheumatic aortic (valve) stenosis 07/20/2023 Unspecified protein-calorie malnutrition 024 Social History Tobacco Use Types Packs/Day Years Used Date Smoking Tobacco: Never Smokeless Tobacco: Never Tobacco Cessation:Counseling Given: Not Answered Education Answer Date Recorded Are you interested in more education? Not on elizabeth e 10/13/2022 Are you concerned about learning? Not on file 10/13/2022 No 10/13/2022 No 10/13/2022 Digital Access Answer Date Recorded No 11/14/2022 No 11/14/2022 Reliable internet access at home? Not on file 11/14/2022 Device with a working camera? Not on file Comments Unknown Sex and Gender Information Value Date Recorded Sex Assigned at Not on file Legal Sex Female 10:25 AM EDT Gender Identity Not on file Sexual Orientation Not on file Last Filed Vital Signs Vital Sign Reading Time Taken Comments Blood Pressure 143/84 03/11/2024 2:19 PM EDT Pulse 94 03/11/2024 2:19 PM EDT Temperature 36.7 C (98.1 F) 03/11/2024 2:19 PM EDT Respiratory Rate 20 03/11/2024 2:19 PM EDT Oxygen Saturation 97% 03/11/2024 2:19 PM EDT Inhaled Oxygen Concentration - - Weight 68 kg (150 lb) 08/12/2023 11:54 AM EST Height 157.5 cm (5' 2 ) 08/12/2023 11:54 AM EST Body Mass Index 27.44 08/12/2023 11:54 AM EST Plan of Treatment Health Maintenance Due Date Last Done Comments Adult Td,Tdap Booster 1941 CREATININE LEVEL 1941 POTASSIUM LEVEL 1941 TSH LEVEL 1941 DEPRESSION SCREENING 1953 PNEUMOCOCCAL VACCINES (50+ years) (1 of 1 - PCV) 1991 ZOSTER VACCINES (1 of 2) 1991 OSTEOPOROSIS SCREENING INITI AL (ONE-TIME) 2006 RSV VACCINE (1 - 1-dose 75+ series) 2016 COVID-19 VACCINE ( - 2023-2 5 season) 2024 05/01/2021, 08/31/2020, 08/08/2020 BLOOD PRESSURE 09/08/2024 03/11/2024 HEPATITIS A VACCINES Aged Out No long er eligible based on patient's age to complete this topic HIB VACCINES Aged Out No longer eligi ble based on patient's age to complete this topic MENINGOCOCCAL VACCINES (ACWY) Aged Out No longer eligible based on patient's age to complete this topic MENINGOCOCCAL VACCINES (B) Aged Out N o longer eligible based on patient's age to complete this topic Medical Devices Not on file Insurance [facility] MEDEX SUPPLEMENT MEDICARE PART A & B [employer] MEDEX SUPPLEMENT MEDICARE PART A & B [employer] MED[employer] SUPPLEMENT MEDICARE PART A & B [employer] MEDEX SUPPLEMENT MEDICARE PART A & B [employer] MEDEX SUPPLEMENT MEDICARE PART A & [place] [address] [place] [address] MEDEX SUPPLEMENT MEDICARE PART A & B [employer] MEDEX SUPPLEMENT MEDICARE PART A & B [employer] MEDEX SUPPLEMENT MEDICARE PART A & B [employer] MEDEX SUPPLEMENT MEDICARE PART A & B Care Teams Network Operations Lead Relationship Specialty Start Date End Date Jerman Mendoza MD [address] [place] [address] [phone] PCP - General Internal Medicine 02/20/24 Additional Source Comments The information contained in this document represents components of the legal health record. It is not the complete legal health record.[facility]
--- OUTSIDE RECORDS SUMMARY | 2025-01-08 11:11 | XMS_ITS | Patient Health Record ---
Author Organization [facility] Address [address] [place] [address] Care Team Providers Care International Recruiter Name Role Phone LYNNELIERWEIROWAN Primary Care Provider Beulah Ghosh Unavailable [phone] Allergies Allergen (clinical drug ingredient) Drug/Non Drug Allergy documented on EMR Reaction Allergy Type Onset Date Status Penicillin Rash Drug Allergy Active Reason For Referral No Information Medications Medication SIG (Take, Route, Fr equency, Duration) Notes Start Date End Date Status KlonoPIN 0.5MG 1 ORAL 3-4 TIMES A D AY; Duration: -2 [facility] 01/17/2013 Active Pamelor 50MG 1 ORAL at bedtime; Duration: -3 [facility] 01/17 Active Vitamin D3 1000 IU ORAL daily; Duration: -3 [facility] 2012 Active Simvastatin 40 MG 1 tablet in the even ing Orally Once a day Active Synthroid 0.05 mg 1 tablet Orally Once a day Active Baby Aspirin Active Bystolic 10 MG 1 tablet Orally Once a day Active Benicar 10MG 1 ORAL daily; Duration: -3 [facility] 01/17/2013 Active Social History Tobacco Use: Social [...] Status Risk Notes Problem Postmenopausal atrophic vaginitis (23281478) Postmenopausal atrophic vaginitis (N95.2) Active confirmed Problem Age-related osteoporosis (745088835) Age-related osteoporosis without current pathological fracture (M81.0) Active confirmed Problem Essential hypertension (46567870) Essential (primary) hypertension (I10) Active confirmed Problem Hyperlipidemia (06080017) Hyperlipidemia, unspecified (E78.5) Active confirmed Problem Anxiety disorder (303323080) Anxiety disorder, unspecified (F41.9) Active confirmed Problem Functional urinary incontinence (903930389) Functional urinary incontinence (R39.81) Active confirmed Problem Menopausal symptom (94193627) Symptomatic menopausal or female climacteric states (627.2) Active confirmed Major Problem Osteoporosis (99694703) Unspecified osteoporosis (733.00) Active confirmed Diag Plan Of Treatment Pending Test Test Name Order Date X ray : Pelvis 04/09/2017 BONE DENSITY EXTREMITY 07/02/2019 DEXA 07/21/2014 MAMMOGRAM, SCREENING 07/21/2014 MAMMOGRAM, SCREENING 07/02/2019 MAMMOGRAM, SCREENING 05/15/2017 Urinalysis 07/21/2014 Ultrasound : Pelvic 11/22/2016 BONE DENSITY 05/16/2018 BONE DENSITY 05/15/2017 MM Digital Mammo Screening 07/02/2019 MM Digital Mammo Screening 05/16/2018 MM Digital Mammo Screening 05/15/2017 Insurance Providers Payer Name Payer Address Payer Phone Subscriber Number Group Number Insured Name Patient Relationship to Insured Coverage Start Date Coverage End Date MEDICARE [address] OBDULIA SHAIKH [id number] JOSENICOLAJHONNY Self - patient is the insured MEDEX [address] [place] [address] [id number] JOSENICOLAJHONNY Self - patient is the insured Medical [...]
--- OUTSIDE RECORDS SUMMARY | 2025-01-08 11:11 | XMS_ITS | Clinical Summary ---
Author Organization [facility] Address [address] [place] [address] Phone Care Team Providers Care Continuous Miner Name Role Phone Jerman Mendoza MD Primary Care Provider [phone] Allergies Active Allergy Reactions Criticality Noted Date [...] arrangements for this to be performed at [facility] Medical History Medical History Date Comments Generalized [...] series) 2016 Cholesterol Screening (Lipid Panel) 05/20/2022 Falls Risk Assessment 05/20/2022 Osteoporosis Screening (Bone Density Screening) 05/20/2022 Social Influencers of Health Screening 05/20/2022 Hypertension/CHF/CAD Annual BMP Blood Test 06/02/2022 Medicare Annual Wellness Visit 10/27/2023 10/26/2022 COVID-19 Vaccine (4 - 2023-2 5 season) 2024 05/01/2021, 08/31/2020, 08/08/2020 Depression Screening 06/18/2024 Influenza Vaccine (#1) 2025 HIB Vaccines Aged Out No longer [...] on patient's age to complete this topic Insurance [employer] MEDICARE Care Teams Continuous Miner Relationship Specialty Start Date End Date Jerman Mendoza MD [facility] [address] [place] [address] [address] [place] [address] PCP - General Internal Medicine 11/23/21
== END 2025-01-08 11:00 | disposition home or self-care (01) ==
PROVIDERS: PCP Internal Medicine; Visit Provider Internal Medicine
DX: Z00.00 Encounter for general adult medical examination without abnormal findings (principal)

== ENCOUNTER 2025-01-22 15:41 | Emergency (ER) | payer MEDICARE, SELFPAY ==
--- OUTSIDE RECORDS SUMMARY | 2024-12-15 09:30 | XMS_ITS ---
Author Organization [facility] Address [address] [place] [address] Care Team Providers Care Linen Aide Name Role Phone Jerman Mendoza Primary Care Provider Usha Huynh [phone] REASON FOR VISIT X CHG Encounters Encounter Location Date Provider Diagnosis [address] [address] 12/15/2024 Usha Huynh Plan Of Treatment Next Appt Details Provider Name:Usha deleon, 05/20/2025 02:45:00 PM, [address] [place], [address], Progress Notes * Denise SHARP MDOB:1939 (84 yo F)Acc No.[id number]:12/15/2024 Progress Note Patient: Sherry Denise BARROS Provider: Mar Huynh DPM :1940 A ge:84 Y S ex:Female Date:12/15/2024 Address:[address] [place] [address] [phone] Pcp:Jerman Mendoza Subjective: * Chief Complaints: * [...] 0 12/15/2024 Generated for Price Mohan/Jean on: 01/22/2025 04:07 PM EDT
--- NOTE | ~2025-01-22 | XR_ITS ---
EXAMINATION: XR CHEST CLINICAL INFORMATION: chest honey, dyspnea, aortic stenosis COMPARISON: None available. TECHNIQUE: Frontal view of the chest was obtained. FINDINGS: The cardiac silhouette is enlarged and partially obscured. Mediastinal contours and hilar contours are normal. Aortic mural calcifications. There is prominence of the pulmonary vasculature with hazy interstitial markings and Martina B lines in the lung bases consistent with interstitial edema. There is a small right and tiny left pleural effusion. There is right basilar consolidation, possibly atelectasis and/or pneumonia. No focal osseous or soft tissue abnormality. XR/XR chest 1V IMPRESSION: 1. Cardiac enlargement. Mild to moderate interstitial pulmonary edema with right greater than left small layering effusions and right basilar consolidation. This may represent atelectasis although pneumonia cannot be excluded. Electronically signed by: Salvador De La Rosa MD 01/22/2025 04:28 PM EDT
--- NOTE | 2025-01-22 15:43 | ECG_ITS ---
Test Reason : CP Blood Pressure : */* mmHG Vent. 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
[2025-01-22 16:01] VITALS: BP 126/66; PULSE 110; RESP 24; TEMP 36.7; O2SAT 94; BMI 28.9
--- OUTSIDE RECORDS SUMMARY | 2025-01-22 16:07 | XMS_ITS | Clinical Summary ---
Author Organization [facility] Address [address] [place] [address] Phone Care Team Providers Care Clinical Massage Therapist Name Role Phone Jerman Mendoza MD Primary [...] disorder 07/20/2023 Atherosclerotic heart diseas e of [place] coronary artery without angina pectoris 07/20/2023 Essential [...] topic Medical Devices Not on file Insurance [facility] MEDEX SUPPLEMENT MEDICARE PART A & B Member Subscriber Plan / Payer (Ef fective 2006-Present) Name:Denise Sharp Member ID:[id number] Relation to Subscriber:Self Name:Denise Sharp Subscriber ID:[id number] Payer ID:[id number] Group ID:Not on file Type:Medicare Address: [facility] [employer] [address] [place] [address] [employer] MEDEX SUPPLEMENT MEDICARE PART A & B Member Subscriber Plan / Payer (Ef fective 2006-Present) Name:Denise Sharp Member ID:[id number] Relation to Subscriber:Self Name:Denise Sharp Subscriber ID:[id number] Payer ID:[id number] Group ID:Not on file Type:Medicare Address: [employer] [address] [place] [address] [employer] MEDEX SUPPLEMENT MEDICARE PART A & B [employer] MEDEX SUPPLEMENT MEDICARE PART A & B [employer] MEDEX SUPPLEMENT MEDICARE PART A [place] [address] [place] [address] MEDEX SUPPLEMENT MEDICARE PART A & B [employer] MEDEX SUPPLEMENT MEDICARE PART A & B [employer] MEDEX SUPPLEMENT MEDICARE PART A & B [employer] MEDEX SUPPLEMENT MEDICARE PART A & B Care Teams Clinical Massage Therapist Relationship Specialty Start Date End Date Jerman Mendoza MD [address] [place] [address] [phone] PCP - General Internal Medicine 02/20/24 Additional Source Comments The information contained in this document represents components of the legal health record. It is not the complete legal health record.[facility]
--- OUTSIDE RECORDS SUMMARY | 2025-01-22 16:07 | XMS_ITS | Patient Health Record ---
Author Organization [facility] Address [address] [place] [address] Care Team Providers Care It Security Engineer Name Role Phone Izabella (RETIRED) Dariusz STOVER Primary Care Provide Wes Guadalupe Unavailable [phone] Allergies Allergen (clinical drug ingredient) Drug/Non Drug [...] Problem Status W/U Status Risk Notes Problem [id number] Encounter for screening for malignant neoplasm of colon (Z12.11) Active confirmed Problem [id number] History of adenomatous polyp of colon (Z86.010) Active confirmed Problem Screening for malignant neoplasm of rectum (795576749) Encounter for screening for malignant neoplasm of rectum (Z12.12) Active confirmed Problem [id number] Constipation, unspecified constipation type (K59.00) Active confirmed Plan Of Treatment Future Test Test Name Order Date COLONOSCOPY 08/17/2015 Insurance Providers Payer Name Payer Address Payer Phone Subscriber Number Group Number Insured Name Patient Relationship to Insured Coverage Start Date Coverage End Date [employer]ED [address] [place] [phone] [id number] JHONNY ADAM Self - patient is the insured Medical (General) History Medical History History ICD Code Hypertension Anxiety Irritable bowel syndrome Denies UT,DM,CVA,Lung disease,renal dise ase Hypothyroidism Hyperlipidemia Colonoscopy 05/2009--1 dov akash adenoma removed, sigmoid diverticulosis and internal hemorrhoids
--- OUTSIDE RECORDS SUMMARY | 2025-01-22 16:08 | XMS_ITS | Clinical Summary ---
Author Organization [facility] [employer] [facility] Address [address] [place] [address] Phone Care Team Providers Care Side Seam Tender Name Role Phone Jerman Mendoza MD Primary Care Provider [phone] Allergies Active Allergy Reactions Criticality Noted Date [...] arrangements for this to be performed at [facility] Medical History Medical History Date Comments Generalized [...] topic Insurance [employer] MEDICARE Care Teams Side Seam Tender Relationship Specialty Start Date End Date Jerman Mendoza MD [facility] [address] [place] [address] [address] [place] [id number] PCP - General Internal Medicine 11/23/21
[2025-01-22 16:39] LABS: MANUAL DIFF FLAG NO
--- NOTE | 2025-01-22 16:40 | ED_ITS ---
HPI - General Adult General Chief complaint: Arrhythmia/Palpitations Stated complaint: chest pain,low o2 sat Time Seen by Provider: 01/22/25 15:57 History of Present Illness ED Provider: Sendy SALDIVAR narrative: The patient is an 84-year-old woman who has a known history of significant aortic stenosis. She also has a history of left main coronary artery disease. I believe her last cardiac catheterization was in July of 2022. At that time she was felt to have severe aortic stenosis and she was also felt to have severe distal left main stenosis. 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 The patient was apparently advised to have a SAVR to address her valvular disease and a CABG to address her coronary disease. The patient apparently chose not to pursue these procedures. The patient comes to the emergency room because she has not been feeling well since about 10:00 this morning. She developed chest discomfort and shortness of breath and ultimately her son persuaded her to come to the emergency room. No fever, sweats, chills. No nausea or vomiting. No recent illness. Related Data Home Medications ?Medication ?Instructions ?Recorded ?Confirmed cholecalciferol (vitamin D3) 125 125 mcg PO DAILY 08/1701/01/24 mcg (5,000 unit) capsule multivitamin 1 tab PO DAILY 09/06/2312/16 probiotic PO BID 11/16/23 01/01/24 Previous Rx's ?Medication ?Instructions ?Recorded atorvastatin 80 mg tablet 80 mg PO BEDTIME #90 tabs metoprolol succinate 50 mg 50 mg PO DAILY #90 tabs tablet,extended release 24 hr nortriptyline 50 mg capsule 50 mg PO DAILY #90 caps apixaban 2.5 mg tablet (Eliquis) 2.5 mg PO BID #180 ta bs 09/17/24 levothyroxine 75 mcg tablet 75 mcg PO DAILY #90 tabs 0 10/22/24 pantoprazole 40 mg tablet,delayed 40 mg PO DAILY 90 da ys #90 tabs 11/22/24 release clonazepam 0.5 mg tablet 0.5 mg PO .COMPLEX Anxiety # 60 tabs 12/10/24 Allergies Allergy/AdvReac Type Severity Reaction Status Date / Time penicillin V Allergy Unknown Unknown Verified 01/22/25 16:03 Penicillins Allergy Unknown Unknown Verified 01/22/25 16:03 Eggs/Apples/Oats Allergy Unknown stomach Uncoded 01/22/25 16:03 ache Review of Systems 2 Review of Systems: Yes all other systems are reviewed and are negative [facility] Past Medical History Medical History (Updated 01/22/25 @ 18:43 by Carlitos Kaba MD) Severe aortic stenosis Cognitive change Gallbladder calculus Left main coronary artery disease Stenosis of aortic valve C. difficile colitis Pancolitis MDD (major depressive disorder) Cholecystitis UGIB (upper gastrointestinal bleed) Dementia Nonrheumatic aortic (valve) stenosis Generalized anxiety disorder Hypercholesterolemia Surgical History History of esophagogastroduodenoscopy (EGD) History of appendectomy History of colonoscopy Family History Family History Mother No problems noted. Father No problems noted. Social History Social History Household Members: None Housing: House Do you presently have visiting nurse or other home services: No Alcohol intake: never Patient Tobacco Use Status: Never used Tobacco e-Cigarette/Vaping Use: Never Used Second Hand Smoke Exposure: No Advance Directives: No Advance Directives Information Provided: No service: No Current occupational status: retired Cognitive needs: No Hearing needs: No Vision needs: Yes (glasses) Physical Exam ED Vital Signs: Vital Signs - 24 hr 01/22/25 16:01 01/22/25 18:32 Temperature 98.0 F Pulse Rate 110 H 113 H Respiratory Rate 24 H Blood Pressure 126/66 156/65 H Pulse Oximetry 94 Oxygen Delivery Method Room Air BMI result Body Mass Index 28.9 Const Other: The patient is a pleasant 84-year-old woman who was awake and alert and looks mildly unwell. She did not appear in overt respiratory distress or overt discomfort. HENMT Other: The face is symmetrical. ?Mucous membranes moist. Eyes Other: Pupils are round equal, conjunctivae are clear, extraocular movements intact Neck Other: The appearance of the neck was unremarkable. No obvious JVD apparent. Resp Other: Diminished air entry at the bases. Mild increased work of breathing. Cardio Other: The patient was tachycardic with a regular rate and rhythm. GI Other: Abdomen is soft and nontender Skin Other: The skin is pale and mildly diaphoretic Neuro Other: The patient is awake and alert with a normal mental status. Cranial nerves are grossly intact. She may have some mild dementia. She moves her extremities symmetrically. No focal findings. Extrem Other: There is no calf swelling or tenderness. No asymmetry. No peripheral edema. Medications Administered Discontinued Medications Generic Name Dose Route Start Last Admin Trade Name Kehinde PRN Reason Stop Dose Admin Aspirin 162 mg 01/22/25 17:14 01/22/25 17:28 Aspirin 81 Mg Tab.Chew PO 01/22/25 17:15 162 mg ONCE ONE Administration Metoprolol Tartrate 25 mg 01/22/25 18:18 01/22/25 18:32 Metoprolol Tartrate 25 Mg Tablet PO 01/22/25 18:19 25 mg ONCE ONE Administration Protocol Procedures Procedure Narrative Procedure Narrative: Ultrasound Guided Peripheral Intravenous Catheter Placement Indication: Intravenous Access Location: Right ??Vascular Location of Catheter Tip: Brachial Provider: Self I was approached by nursing staff and informed that multiple unsuccessful attempts had been made to establish IV access in the patient. The patients arm was surveyed with the ultrasound for verification of vessel collapsibility, patency, depth and caliber, as well as identification of nearby structures. The target area was prepped with chlorhexidine. A tourniquet was placed proximally on the extremity. Under real-time ultrasound guidance, an [20 G 2.25 inch AccuCath nontunneled catheter] ? was advanced into the target vein. Dark blood was visualized in the flash chamber. The catheter was easily advanced into the vein. The catheter was evacuated of air and flushed with sterile saline. The catheter was secured in place with a tegaderm. The patient tolerated the procedure well and there were no complications. Estimated Blood Loss: 1mL Total Time for Procedure: 5min Images Stored CPT: 88936; 36620 Performed by myself:Dandy Newell MD Medical Decision Making Medical Decision Making MDM Narrative: The patient is an 84-year-old female with a history of known severe aortic stenosis and known coronary disease (I believe left main coronary disease) who declined recommended Interventional and surgical approaches for these problems in the past. She is on apixaban because of a history of DVTs. The patient presents over 5 hours after the onset of shortness of breath and some chest discomfort which she says she has never experienced before. The son at the bedside says the patient does not have a history of complaining of the symptoms in the past. The patient has EKG is a concerning EKG with tachycardia and ST segment depressions laterally. I have no old EKG for comparison. Chest x-ray shows [id number] interstitial pulmonary edema with bilateral effusions. Her white count is normal at 9.0. Hemoglobin stable at 12.1. Platelet count normal l. Differential on her white count is normal. Her basic metabolic panel shows normal electrolytes, creatinine is 0.93, BUN 14, GFR 58. An initial troponin is 52 Case reviewed with covering o and m supervisor. The patient was given aspirin. She was given furosemide. She is furosemide naive. Recommendation is for transfer to [facility] given her history of severe aortic stenosis and coronary disease. I contacted the transfer hotline at [facility] and the patient will be accepted in transfer. I discussed the case with the on-call o and m supervisor. In addition to the furosemide received the patient will also be given an oral dose of metoprolol, 25 mg metoprolol tartrate, and 5 mg of metoprolol IV. The patient's initial troponin was 52, the repeat troponin was 48. Lab Data 01/22/25 16:32 01/22/25 17:03 Labs: Lab Results 01/22/25 01/22/25 01/22/25 Range/Units 16:32 17:03 17:59 WBC 9.0 (4.8-10.8) X10*3/uL RBC 4.05 L (4.20-5.50) X10*6/uL Hgb 12.1 (12.0-16.0) g/dl Hct 36.4 L (37.0-47.0) % MCV 89.9 (80.0-98.0) fL MCH 29.9 (27.0-33.0) pg MCHC 33.2 (31.0-35.0) g/dl RDW 14.3 (11.0-16.0) % Plt Count 218 (160-400) X10*3/uL MPV 10.2 (9.4-12.3) fL Immature Gran % (Auto) 0.2 (0.0-0.4) % Neut % (Auto) 65.1 (45-73) % Lymph % (Auto) 24.5 (20-40) % Stark % (Auto) 9.0 (2-11) % Eos % (Auto) 0.8 (0-4) % Baso % (Auto) 0.4 (0-2) % Lymph # (Auto) 2.2 (1.2-4.9) X10*3/uL Stark # (Auto) 0.8 (0.1-1.2) X10*3/uL Eos # (Auto) 0.1 (0.0-0.4) X10*3/uL Baso # (Auto) 0.0 (0.0-0.2) X10*3/uL Abs Immat Gran (auto) 0.02 (0.00-0.03) X10*3/uL Absolute Neuts (auto) 5.9 (2.0-8.3) x10*3/uL Absolute Nucleated RBC 0.000 (0.0-0.012) X10*3/uL Nucleated RBC % (auto) 0.0 (0.0-0.2) /100WBC PT 17.4 H (10.9-12.4) SEC INR 1.5 H (0.9-1.1) APTT 39.2 H (26.7-34.1) SEC Sodium 142 (135-145) mmol/L Potassium 4.5 D (3.3-5.1) mmol/L Chloride 108 (96-108) mmol/L Carbon Dioxide 24 (22-29) mmol/L Anion Gap 15 (12-20) BUN 14 (9-16) mg/dL Creatinine 0.93 (0.5-1.4) mg/dL Estim Creat Clear Calc 42.5 Estimated GFR 58 Random Glucose 107 (60-115) mg/dL Calcium 9.0 D (8.4-10.2) mg/dL Magnesium 2.3 (1.6-2.6) mg/dL Total Bilirubin 1.1 H (0.0-1.0) mg/dL Direct Bilirubin 0.3 (0.0-0.5) mg/dL AST 72 H (5-31) U/L ALT 46 H (0-31) U/L Alkaline Phosphatase 106 (39-117) U/L Troponin I High Sens 52.0 H* 48.3 H (<3.5-17.0) ng/L Total Protein 6.7 (6.5-8.0) g/dL Albumin 4.0 (3.5-5.0) g/dL Independent Interpretation I performed an independent interpretation of an: EKG Interpretation: EKG at 15:42 shows sinus tachycardia at 108 beats per minute. There are ST segment depressions in V4 through V6 and in lead 1 and aVL. Critical Care Time Critical Care Time Critical Care Time: Yes Total Critical Care Time: 35 Attestation: The patient was critically ill with a high probability of imminent or life- threatening deterioration. ?I spent greater than 30 minutes of discontinuous time evaluating the patient, delivering critical care at the bedside, discussing evaluating data with consultants. ?Critical care time does not include time spent performing separately billable procedures or teaching. ?Time spent performing critical care with 35 minutes. Discharge Plan Discharge Clinical Impression: Pulmonary edema, Aortic stenosis, Coronary artery disease, Anticoagulated on apixaban Patient Disposition: [facility] Transfer Details: [facility] Prescriptions: No Action metoprolol succinate 50 mg tablet extended release 24 hr 50 mg PO DAILY Qty: 90 1RF atorvastatin 80 mg tablet 80 mg PO BEDTIME Qty: 90 1RF nortriptyline 50 mg capsule 50 mg PO DAILY Qty: 90 1RF Eliquis 2.5 mg tablet 2.5 mg PO BID Qty: 180 2RF levothyroxine 75 mcg tablet 75 mcg PO DAILY Qty: 90 1RF pantoprazole 40 mg tablet,delayed release (DR/EC) 40 mg PO DAILY 90 Days Qty: 90 0RF clonazepam 0.5 mg tablet 0.5 mg PO .COMPLEX Qty: 60 1RF Rx Instructions: 0.5 mg orally take 0.25 mg in am and 0.5mg at bedtime and may take an additional 0. 25 mg midday as needed for severe anxiety/panic attack; when with family/caregiver; cholecalciferol (vitamin D3) 125 mcg (5,000 unit) Capsule 125 mcg PO DAILY multivitamin Tablet 1 tab PO DAILY probiotic PO BID Print Language: Turkmen
[2025-01-22 16:41] LABS: Hematocrit 36.4 % (37.0-47.0); Hemoglobin 12.1 g/dl (12.0-16.0); Imm Gran Abs Auto 0.02 X10*3/uL (0.00-0.03); Imm Gran Pct Auto 0.2 % (0.0-0.4); Lymphocytes Absolute Auto 2.2 X10*3/uL (1.2-4.9); Mean Corpuscular HGB Conc 33.2 g/dl (31.0-35.0); Mean Corpuscular Hemoglobin 29.9 pg (27.0-33.0); Mean Corpuscular Volume 89.9 fL (80.0-98.0); NRBC Abs Auto 0.000 X10*3/uL (0.0-0.012); NRBC Pct Auto 0.0 /100WBC (0.0-0.2); Platelet Count 218 X10*3/uL (160-400); Red Blood Count 4.05 X10*6/uL (4.20-5.50); White Blood Count 9.0 X10*3/uL (4.8-10.8)
--- NOTE | 2025-01-22 17:05 | PC.NURSE ---
20g IV access established by Dandy Newell MD. Ultrasound guided to right bicep. Labs collected at this time. Dr. Kaba aware. Unsuccessful attempts by this RN.
[2025-01-22 17:06] LABS: Troponin-I High Sensitivity 52.0 ng/L (<3.5-17.0)
[2025-01-22 17:21] LABS: INTERNATIONAL NORM RATIO 1.5 (0.9-1.1); Prothrombin Time 17.4 SEC (10.9-12.4)
[2025-01-22 17:24] LABS: Partial Thromboplastin Time 39.2 SEC (26.7-34.1)
[2025-01-22 17:31] LABS: Alanine Aminotransferase 46 U/L (0-31); Albumin Level 4.0 g/dL (3.5-5.0); Alkaline Phosphatase 106 U/L (39-117); Anion Gap 15 (12-20); Aspartate Amino Transferase 72 U/L (5-31); Blood Urea Nitrogen 14 mg/dL (9-16); Calcium 9.0 mg/dL (8.4-10.2); Carbon Dioxide 24 mmol/L (22-29); Chloride 108 mmol/L (96-108); Creatinine Clr Calc Pharmacy 42.5; Estimated Glomerular Filt Rate 58; Magnesium 2.3 mg/dL (1.6-2.6); Potassium 4.5 mmol/L (3.3-5.1); Sodium 142 mmol/L (135-145); Total Protein 6.7 g/dL (6.5-8.0)
[2025-01-22 18:32] VITALS: BP 156/65; PULSE 113
--- NOTE | 2025-01-22 18:32 | PC.NURSE ---
Patient noted to be sweating profusely for past ~1 hour. IV access from right bicep came out accidentally due to patient sweating enough to remove tegaderm dressing. IV came out. Dr. Kaba aware. Moses Petersen RN attempting to obtain new access with ultrasound at this time.
[2025-01-22 18:33] LABS: Troponin-I High Sensitivity 48.3 ng/L (<3.5-17.0)
[2025-01-22 18:40] LABS: Resp Syncy Virus RNA Qual PCR NEGATIVE (Negative); SARS COV2 PCR INHOUSE NEGATIVE (Negative)
[2025-01-22 18:49] VITALS: BP 156/65
[2025-01-22] MEDS: Furosemide 20 MG/2 ML VIAL IVPUSH (18:49)
[2025-01-22 18:55] VITALS: BP 125/65; PULSE 114; RESP 25; O2SAT 100
--- NOTE | 2025-01-22 18:58 | PC.NURSE ---
New IV access established with ultrasound guidance to left bicep by Moses Petersen RN. 20g IV access. Medicated per MD orders. Plan to transfer to [facility], ETA 20 minutes from this time, per ED company secretary.
--- NOTE | 2025-01-22 19:18 | PC.NURSE ---
Attempted to give RN to RN report, spoke with Mirian. Phone number provided for Mirian to call this RN back. Patient to be transferred to [facility], M6 unit, Bed 28. .
[2025-01-22 19:19] VITALS: BP 125/65; PULSE 114; RESP 25; TEMP 36.6; O2SAT 100
--- NOTE | 2025-01-22 19:42 | PC.NURSE ---
Report given to Mirian at [facility] at bedside.
== END 2025-01-22 19:51 | disposition short-term general hospital (02) ==
PROVIDERS: Emergency Provider Emergency Medicine; PCP Internal Medicine
DX: R07.89 Other chest pain (principal); I35.0 Nonrheumatic aortic (valve) stenosis; I25.10 Atherosclerotic heart disease of native coronary artery without angina pectoris; J81.1 Chronic pulmonary edema; Z79.899 Other long term (current) drug therapy; Z79.01 Long term (current) use of anticoagulants
CPT/HCPCS: 36415; 71045; 80048; 80076; 83735; 84484; 85025; 85610; 85730; 87637; 93005; 96374; 96375; 99285; J0616; J1938

== ENCOUNTER → 2025-01-22 15:43 | Outpatient (BNV) | payer MEDICARE, SELFPAY | PROVIDERS: Emergency Provider Emergency Medicine; PCP Internal Medicine; Visit Provider Internal Medicine | DX: I51.7 Cardiomegaly (principal); R00.0 Tachycardia, unspecified | CPT/HCPCS: 93010 ==

== ENCOUNTER → 2025-01-22 15:59 | Outpatient (BNV) | payer MEDICARE, SELFPAY | PROVIDERS: Emergency Provider Emergency Medicine; PCP Internal Medicine; Visit Provider Radiology Diagnostic Radiology | DX: R06.00 Dyspnea, unspecified (principal) | CPT/HCPCS: 71045 ==

== ENCOUNTER → 2025-02-23 23:59 | Outpatient (BNV) | payer MEDICARE, SELFPAY | PROVIDERS: PCP Internal Medicine; Visit Provider Internal Medicine | DX: I35.0 Nonrheumatic aortic (valve) stenosis (principal); I11.0 Hypertensive heart disease with heart failure; I50.33 Acute on chronic diastolic (congestive) heart failure; I25.10 Atherosclerotic heart disease of native coronary artery without angina pectoris | CPT/HCPCS: G0180 ==